=== PATIENT | female | born 1940 | race Caucasian/White ===

== ENCOUNTER 2016-09-09 11:07 | Outpatient (CLI) ==
[2016-01-08 16:11] VITALS: BMI 19.8
--- NOTE | 2016-09-09 12:25 | DI ---
EXAM: Left wrist three-view HISTORY: Pain and swelling left wrist COMPARISON: 01/23/2012 FINDINGS: No fracture or dislocation. Mild narrowing of the first CMC joint. There is chondrocalcin osis of the triangular fibrocartilage. IMPERSSION: 1. No fracture or dislocation. 2. Mild osteoarthritis first CMC joint. 3. Chondrocalcinosis
== END 2016-09-09 11:08 | disposition home or self-care (01) ==
LOC: RAD 11:07
PROVIDERS: ATTEND Internal Medicine
DX: M25.532 Pain in left wrist (principal); M25.432 Effusion, left wrist

== ENCOUNTER 2017-05-06 10:56 | Inpatient (IN) | payer OTHER ==
[2017-05-06 11:22] VITALS: BMI 18.1
[2017-05-06] MEDS ORDERED: NITROSTAT SL PRN (11:43)
[2017-05-06] MEDS ORDERED: TYLENOL PO PRN (11:43)
[2017-05-06] MEDS ORDERED: MORPHINE 4 MG/ML VIAL IVP PRN (11:43)
[2017-05-06] MEDS ORDERED: ATROPINE SULFATE PFS IVP PRN (11:43)
[2017-05-06] MEDS ORDERED: VISTARIL INJ IM PRN (11:43)
[2017-05-06] MEDS ORDERED: SOLU-MEDROL 125 MG IVP SCH (12:00)
[2017-05-06] MEDS: XOPENEX 1.25 MG NEB SCH ×3 (12:48→23:07)
--- NOTE | 2017-05-06 13:58 | DI ---
EXAM: Chest one view HISTORY: Cough, shortness of air COMPARISON: 02/11/2017 TECHNIQUE: Single view of the chest was performed FINDINGS: Similar appearing right apical opacity. Granulomatous calcification. No pleural effusion or pneumothorax. Lungs are hyperinflated. Lower airway thickening. No definite consolidation. He art normal in size. Mediastinal contour normal, noting atherosclerosis. IMPRESSION: 1. Lower airway thickening, suggesting infectious/inflammatory bronchitis. No definite consolidatio n. 2. Chronic obstructive pulmonary disease. 3. Similar appearing right apical opacity, previously described on CT02/11/2017. CT follow-up recom mended.
[2017-05-06] MEDS: COMBIVENT RESPIMAT INHAL SPRAY IH SCH ×3 (14:17→21:36)
[2017-05-06] MEDS: SOLU-CORTEF 250 MG IVP SCH ×2 (14:18→21:36)
[2017-05-06] MEDS: TORADOL IVP SCH ×3 (14:18→21:37)
[2017-05-06] MEDS: ROCEPHIN 1 GM in SODIUM CHLORIDE 50 ML IV SCH (14:18)
[2017-05-06] MEDS: DEXTROSE 5%-1/2NS IV SOLUTION 1,000 ML IV SCH (14:19)
[2017-05-06] MEDS: ZITHROMAX PO SCH (14:20)
[2017-05-06] MEDS: COUMADIN PO SCH (17:08)
[2017-05-06] MEDS: ADVAIR 250-50 DISKUS IH SCH (21:35)
[2017-05-06] MEDS: SINGULAIR PO SCH (21:37)
[2017-05-07] MEDS: DEXTROSE 5%-1/2NS IV SOLUTION 1,000 ML IV SCH (03:30)
[2017-05-07] MEDS: XOPENEX 1.25 MG NEB SCH ×4 (04:23→22:52)
[2017-05-07] MEDS: SOLU-CORTEF 250 MG IVP SCH ×3 (05:53→20:17)
[2017-05-07] MEDS: PROTONIX PO SCH (05:53)
[2017-05-07] MEDS: TORADOL IVP SCH ×3 (05:53→20:17)
[2017-05-07] MEDS ORDERED: TUSSIONEX PO PRN (08:26)
[2017-05-07] MEDS: ZITHROMAX PO SCH (09:04)
[2017-05-07] MEDS: COMBIVENT RESPIMAT INHAL SPRAY IH SCH ×4 (09:05→20:17)
[2017-05-07] MEDS: ADVAIR 250-50 DISKUS IH SCH ×2 (09:05→20:17)
[2017-05-07] MEDS: ASPIRIN EC PO SCH (09:05)
[2017-05-07] MEDS: ROCEPHIN 1 GM in SODIUM CHLORIDE 50 ML IV SCH (09:05)
--- NOTE | 2017-05-07 09:54 | PCM.PROG ---
Attending Provider: ATTENDING PROVIDER: Dr. RAISA RASCON DATE OF SERVICE: 05/07/17 SUBJECTIVE: This 76 year old WHITE/ F was hospitalized 05/06/17. The patient is hospitalized with pleurisy, acute pneumonitis and shortness of breath. The patient has generalized aches maybe consistent with flu symptoms. Shortness of breath on minimal exertion. One of the daughters is present in the room. REVIEW OF SYSTEMS: CONSTITUTIONAL: No night sweats. No fatigue, malaise, lethargy. No fever or chills. HEENT: Eyes: No visual changes. No eye pain. No eye discharge. ENT: No runny nose. No epistaxis. No sinus pain. No odynophagia. No congestion. RESPIRATORY: No cough, no congestion. No hemoptysis. Shortness of breath on minimal exertion. CARDIOVASCULAR: No angina symptoms. No CHF symptoms. No pleuritic pain. No atypical chest pain for CAD. No palpitations. No orthopnea.. GASTROINTESTINAL: Appetite is improving. No abdominal pain. No nausea or vomiting. No diarrhea or constipation. No hematemesis. No hematochezia. GENITOURINARY: No urgency. No frequency. No dysuria. No hematuria. No obstructive symptoms. No discharge. No pain. No significant abnormal bleeding. MUSCULOSKELETAL: Shoulder pain. NEUROLOGICAL: Awake, alert, oriented to time, place and person. No headache. No neck pain. No syncope. No seizures. No dizziness. PSYCHIATRIC: Not anxious. No depression. No suicidal thoughts. No homicidal thoughts. SKIN: No rash. No lesions. No wounds. ENDOCRINE: No unexplained weight loss. No weight gain. HEMATOLOGIC/LYMPHATIC: No anemia. No purpura. No petechiae. No prolonged or excessive bleeding. No palpable lymph nodes. PHYSICAL EXAMINATION: GENERAL: The patient is awake, alert and oriented, sitting in bed in no distress. VITAL SIGNS: Temperature 97.5 F, Pulse 86, Respiratory Rate 17, BP 120/64, Pulse Ox 99% HEENT: Head normocephalic, atraumatic. Eyes: Extraocular muscles are intact. Pupils are equal, round and reactive to light and accommodation. Ears: No lesions. Nose appeared normal. Throat: No exudate or erythema. NECK: Supple. No JVD, no carotid bruit. No lymphadenopathy or thyromegaly. LUNGS: Good air entry. No wheeze. Clear to auscultation. Percussion note normal. Chest symmetrical. HEART: S1, S2, no S3. No murmurs. No cyanosis or clubbing. No ascites. Pulses: Dorsalis pedis and posterior tibial pulses +1 to +2 both sides. ABDOMEN: Soft. Non-tender. Bowel sounds active. No CVA tenderness. No mass felt. EXTREMITIES: No edema. Full range of motion of all extremities, equal. NEUROLOGIC: No focal deficit. Cranial nerves II through XII are grossly intact. No headache, no double vision or headache. SKIN: Not dry. Intact. Turgor-normal. LYMPHATIC: No palpable lymph nodes/no lymphedema. MUSCULOSKELETAL: Normal joints with no swelling. Muscle tone is normal. LAB REVIEW: 05/07/17 04:30 05/07/17 04:30 05/07/17 04:30: Sodium 132 L, Potassium 3.7, Chloride 102, Carbon Dioxide 22 L, Anion Gap 11.7, BUN 14, Creatinine 0.81, Estimated GFR (MDRD) 69.00, BUN/ Creatinine Ratio 17.28, Glucose 195 H D, Calcium 9.7, Total Bilirubin 0.3, AST 16, ALT 13, Alkaline Phosphatase 124, Total Protein 6.6, Albumin 2.7 L, Globulin 3.9, Albumin/Globulin Ratio 0.69 05/07/17 04:30: PT 11.7 H, INR 1.15 05/07/17 04:30: WBC 7.62 D, RBC 3.64 L, Hgb 10.7 L, Hct 31.8 L, MCV 87.4, MCH 29.4, MCHC 33.6, RDW Coeff of Elie 13.7, Plt Count 194, Immature Gran % (Auto) 0.5, Neut % (Auto) 90.5, Lymph % (Auto) 5.1 L, [place] % (Auto) 3.8, Eos % (Auto) 0.0, Baso % (Auto) 0.1, Immature Gran # (Auto) 0.0, Neut # 6.9, Lymph # 0.4 L, [place] # 0.3 L, Eos # 0.0, Baso # 0.0 05/06/17 19:40: Total Creatine Kinase 69, Troponin I 0.0280 05/06/17 12:24: Influenza A (Rapid) Negative by naat, Influenza B (Rapid) Negative by naat 05/06/17 12:24: Urine Color Yellow, Urine Clarity Clear, Urine pH 6.0, Ur Specific [place] <=1.005, Urine Protein Negative, Urine Glucose (UA) Negative, Urine Ketones 1+, Urine Blood 1+, Urine Nitrite Negative, Urine Bilirubin Negative, Urine Urobilinogen 0.2, Ur Leukocyte Esterase 1+, Urine Microscopic WBC 5-10, Ur Squamous Epith Cells 2-5, Urine Bacteria 1+ 05/06/17 12:10: Sodium 135 L, Potassium 3.8, Chloride 100, Carbon Dioxide 24, Anion Gap 14.8, BUN 8, Creatinine 0.85, Estimated GFR (MDRD) 65.00, BUN/ Creatinine Ratio 9.41, Glucose 97, Calcium 10.4 H, Total Bilirubin 0.8, AST 20, ALT 14, Alkaline Phosphatase 130, Total Creatine Kinase 85, Troponin I 0.0200, Total Protein 7.4, Albumin 3.2 L, Globulin 4.2, Albumin/Globulin Ratio 0.76 05/06/17 12:09: PT 11.9 H, INR 1.18 05/06/17 12:09: WBC 12.78 H, RBC 3.89 L, Hgb 11.5 L, Hct 34.6 L, MCV 88.9, MCH 29.6, MCHC 33.2, RDW Coeff of Elie 14.2, Plt Count 218, Immature Gran % (Auto) 0.4, Neut % (Auto) 82.3, Lymph % (Auto) 8.3 L, [place] % (Auto) 8.5, Eos % (Auto) 0.1, Baso % (Auto) 0.4, Immature Gran # (Auto) 0.1, Neut # 10.5 H, Lymph # 1.1, [place] # 1.1, Eos # 0.0, Baso # 0.1 05/06/17 11:55: Puncture Site R radial, O2 Saturation 97.0, ABG pH 7.534 H*, ABG pCO2 24.8 L, ABG pO2 78.0 L, ABG HCO3 20.9 L, ABG Total CO2 22, ABG Base Excess -2, [place] Test +, FiO2 % 21.0 ASSESSMENT: 1. ACUTE PNEUMONITIS/BRONCHITIS 2. COPD SEEMS TO BE CLINICALLY IMPROVING. THE PATIENT'S OVERALL CAPACITY TO EXERCISE SEEMS DECREASED; THE PATIENT WILL NEED PULMONARY REHAB. PLAN: 1. Advised pulmonary rehab. 2. Regular diet 3. Toradol 30 mg IV q.8hr with one dose now 4. PT/OT 5. Pulmonary rehab consultation 6. Echocardiogram 7. Tussionex one teaspoon twice a day 9. D/C Iv fluids Plan and coordination of the patient's care discussed in the presence of Outpatient Physical Therapist Assistant and nurse. CONDITION: Stable SCRIBED BY: ZO DANG Shank Rander scribed while in presence of service performed by Dr. RAISA RASCON on 05/07/17 ([id number])
--- NOTE | 2017-05-07 14:24 | ECHO2D ---
Date of Exam: 05/07/17 Ordering Physician: DR. RAISA RASCON Room #: 115 Reason for Echo: RESPIRATORY FAILURE, COPD M-Mode Normal Adult Results LV Dimensions Normal Adult Results AoV Opening excursions >1.6 >1.6 LVEDD-base- 3.5-5.8 4.1 Ao root dimensions 2.0-3.7 3.5 LVESD-base- 3.1-4.6 L. Atrium dimensions 1.9-3.8 3.6 Post. Wall thickness 0.8-1.1 1.0 IV septum (thickness) 0.7-1.2 1.0 Post. Wall excursion 0.72-1.3 NORMAL Septal motion NORMAL Systolic motion R. Ventricular cavity 1.5-2.0 3.0 LVEF 60% 78% Paradoxical septal wall motion NORMAL 2-D : 2-D M Mode Echocardiogram was performed using apical four chamber and left parasternal long and short axis views. Mitral, tricuspid and aortic valves appear to be normal. Contractility of the left ventricle seems to be normal, so is the cavity size. Left atrial cavity size and aortic root appear to be normal. There is no pericardial effusion. There is no thrombus noted in the left ventricular or left aortic cavity. No mitral valve prolapse noted. M-MODE: MV: NORMAL AV: NORMAL TV: NORMAL PV: CHAMBER SIZE: NORMAL WALL MOTION: NORMAL PERICARDIUM: NORMAL INTERPRETATION: 1. ENLARGED RIGHT VENTRICULAR CAVITY 2. NORMAL LEFT VENTRICULAR CONTRACTILITY 3. NORMAL VALVES MTDD
[2017-05-07] MEDS: COUMADIN PO SCH (17:07)
[2017-05-07] MEDS: SINGULAIR PO SCH (20:17)
[2017-05-07] MEDS: ATIVAN PO PRN (22:22)
[2017-05-07] MEDS: ULTRAM PO PRN (22:22)
[2017-05-08] MEDS: XOPENEX 1.25 MG NEB SCH ×4 (05:05→22:55)
[2017-05-08] MEDS: PROTONIX PO SCH (05:50)
[2017-05-08] MEDS: TORADOL IVP SCH ×3 (05:50→20:17)
[2017-05-08] MEDS: SOLU-CORTEF 250 MG IVP SCH ×3 (05:51→20:17)
[2017-05-08] MEDS: ZITHROMAX PO SCH (08:40)
[2017-05-08] MEDS: ADVAIR 250-50 DISKUS IH SCH ×2 (08:40→20:18)
[2017-05-08] MEDS: COMBIVENT RESPIMAT INHAL SPRAY IH SCH ×4 (08:40→20:18)
[2017-05-08] MEDS: ASPIRIN EC PO SCH (08:40)
[2017-05-08] MEDS: ROCEPHIN 1 GM in SODIUM CHLORIDE 50 ML IV SCH (08:41)
--- NOTE | 2017-05-08 09:24 | PCM.PROG ---
Attending Provider: ATTENDING PROVIDER: Dr. RAISA RASCON This patient is seen with Zuly Henry, Nurse Practitioner. DATE OF SERVICE: 05/08/17 SUBJECTIVE: This 76 year old WHITE/ F was hospitalized 05/06/17. Lying in bed, alert. The patient's breathing his somewhat improved, pain is improved. REVIEW OF SYSTEMS: CONSTITUTIONAL: Weakness. No night sweats. No fever or chills. HEENT: Eyes: No visual changes. No eye pain. No eye discharge. ENT: No runny nose. No epistaxis. No sinus pain. No odynophagia. No congestion. RESPIRATORY: No cough, no congestion. No hemoptysis. CARDIOVASCULAR: No angina symptoms. No CHF symptoms. No atypical chest pain for CAD. No palpitations. No orthopnea.. Positive for shortness of breath. GASTROINTESTINAL: No abdominal pain. No nausea or vomiting. No diarrhea or constipation. No hematemesis. No hematochezia. GENITOURINARY: No urgency. No frequency. No dysuria. No hematuria. No obstructive symptoms. No discharge. No pain. No significant abnormal bleeding. MUSCULOSKELETAL: No musculoskeletal pain; no joint swelling. NEUROLOGICAL: Awake, alert, oriented to time, place and person. No headache. No neck pain. No syncope. No seizures. No dizziness. PSYCHIATRIC: Not anxious. No depression. No suicidal thoughts. No homicidal thoughts. SKIN: No rash. No lesions. No wounds. ENDOCRINE: No unexplained weight loss. No weight gain. HEMATOLOGIC/LYMPHATIC: No anemia. No purpura. No petechiae. No prolonged or excessive bleeding. No palpable lymph nodes. PHYSICAL EXAMINATION: GENERAL: The patient is awake, alert and oriented, lying in bed in no distress. VITAL SIGNS: Temperature 97.2 F, Pulse 100, Respiratory Rate 23, BP 119/63, Pulse Ox 96% HEENT: Head normocephalic, atraumatic. Eyes: Extraocular muscles are intact. Pupils are equal, round and reactive to light and accommodation. Ears: No lesions. Nose appeared normal. Throat: No exudate or erythema. NECK: Supple. No JVD, no carotid bruit. No lymphadenopathy or thyromegaly. LUNGS: Diminished breath sounds bilaterally. Clear to auscultation. Percussion note normal. Chest symmetrical. HEART: S1, S2, no S3. No murmurs. No cyanosis or clubbing. No ascites. Pulses: Dorsalis pedis and posterior tibial pulses +1 to +2 both sides. ABDOMEN: Soft. Non-tender. Bowel sounds active. No CVA tenderness. No mass felt. EXTREMITIES: No edema. Full range of motion of all extremities, equal. NEUROLOGIC: No focal deficit. Cranial nerves II through XII are grossly intact. No headache, no double vision or headache. SKIN: Not dry. Intact. Turgor-normal. LYMPHATIC: No palpable lymph nodes/no lymphedema. MUSCULOSKELETAL: Normal joints with no swelling. Muscle tone is normal. LAB REVIEW: 05/08/17 05:05 05/07/17 04:30 05/08/17 05:05: PT 13.2 H, INR 1.30 05/08/17 05:05: WBC 10.32 H, RBC 3.54 L, Hgb 10.4 L, Hct 30.7 L, MCV 86.7, MCH 29.4, MCHC 33.9, RDW Coeff of Elie 13.8, Plt Count 229, Immature Gran % (Auto) 0.5, Neut % (Auto) 91.0, Lymph % (Auto) 4.7 L, [place] % (Auto) 3.7, Eos % (Auto) 0.0, Baso % (Auto) 0.1, Immature Gran # (Auto) 0.1, Neut # 9.4 H, Lymph # 0.5 L , [place] # 0.4, Eos # 0.0, Baso # 0.0 ASSESSMENT: 1. ACUTE PNEUMONITIS/BRONCHITIS 2. COPD SEEMS TO BE CLINICALLY IMPROVING. THE PATIENT'S OVERALL CAPACITY TO EXERCISE SEEMS DECREASED; THE PATIENT WILL NEED PULMONARY REHAB. 3. HISTORY OF PE ON COUMADIN PLAN: 1. Extra 5 mg of Coumadin today Plan and coordination of the patient's care discussed in the presence of Sales Ledger Clerk and nurse. CONDITION: Stable SCRIBED BY: ZO DANG Silver Miner scribed while in presence of service performed by Dr. Rascon/Zuly Henry APRN on 05/08/17 ([id number])
--- NOTE | 2017-05-08 14:41 | RS.PTINEVL ---
Subjective - Patient information Date of Evaluation: 05/08/17 Date of Arrival on Unit: 05/07/17 Admitted From:: Home Diagnosis: pleurisy, acute pneumonitis, COPD Usual Living Arrangement: With Spouse Home Environment: House, Stairs (few), Rail Medical History: COPD, Arthritis Medical History Comments:: DDD, osteopenia, gout, GERD, R shld pain LATEX ALLERGY?: No Surgical History: Hysterectomy Medications: see chart - Level of function Prior to this admission, the patient could do the following:: Independent Selfcare, Independent ADL's, Independent Ambulation Current Level of Function: Partially Dependent Current Equipment Used at Home: oxygen, shower chair Pain Assessement - Location ribs Description: Sharp, Acute Intensity: 0 Interventions - Objective Patient Orientation: Person, Place, Time, Situation Current Interventions: IV's, Oxygen, Telemetry Range of Motion - ROM Right Upper Extremity AROM: WFL's Left Upper Extremity AROM: WFL's Right Lower Extremity AROM: WFL's Left Lower Extremity AROM: WFL's Muscle Strength - Muscle Strength Right Upper Extremity Strength: Mild Weakness (grossly 4/5) Left Upper Extremity Strength: Mild Weakness (grossly 4/5) Right Lower Extremity Strength: Mild Weakness (hip flex 4-/5, knee flex/ext 4/5 , ankle Df/PF 4/5) Left Lower Extremity Strength: Mild Weakness (hip flex 4-/5, knee flex/ext 4/5, ankle Df/PF 4/5) Sensation - Sensation Right Upper Extremity Sensation: Intact/Normal Left Upper Extremity Sensation: Intact/Normal Right Lower Extremity Sensation: Intact/Normal Left Lower Extremity Sensation: Intact/Normal Palpation Palpation Findings: Muscle Guarding Comments:: muscle guarding and tightness noted in upper traps due to use of accessory muscles for breathing. Balance - Sitting Balance and Reactions Static Sitting Balance: Normal Dynamic Sitting Balance: Normal - Standing Balance and Reactions Static Standing Balance: Good Dynamic Standing Balance: Fair Standing Equilibrium Reactions: Delayed Left, Delayed Right Standing Protective Reactions: Delayed Left, Delayed Right - Comments Balance Assessment Comments: Tinetti score: 17/28 Functional Mobility - Bed Mobility Rolling R/L: Supervision Scooting: Supervision Supine to Sit: Supervision Sit to Supine: CGA - Transfers Sit to Stand: CGA Stand to Sit: CGA - Safety Awareness Safety Awareness: Fair Ambulation - Ambulation Assistive Device Used: Rolling Walker Orthotic/Prosthetic Device: No Distance: 130ft Assistance needed with Ambulation: CGA Gait Deviations: Narrow Based gait, Shuffling gait Ambulation Comments: pt amb with O2 requires 2-3 standing rest periods during amb. pt amb with flexed posture, and decreased step length. Factors Affecting Ambulation: Decreased Balance, Breathing/O2 Saturation, Weakness, Decreased Coordination, Decreased Safety, Limited Endurance, Limited Sensation Treatment time - Time with patient Total treatment time: 32 Patient Education - Education Patient Education: Activity Modification, Education of Plan of Care Teaching Recipient: Patient Teaching Methods: Discussion, Demonstration Comments: Discussion with patient regarding use of rwx for energy conservation, as well as POC Assessment - Assessment Problem List:: Decreased level of function, Requires training/education, Decreased safety/Risk of falls, Weakness Rehab Potential: Good Further Therapy Indicated?: Yes Short Term Goals GOAL #1: pt transfer sup to/from sit independently, sit to/from stand SBA Goal to be met by: 05/10/17 GOAL #2: pt amb 150ft with rwx and O2 with CGA with no LOB. Goal to be met by: 05/10/17 Correction Goals GOAL #1: pt transfer sit to/from stand independently. Goal to be met by: 05/13/17 GOAL #2: pt amb with/without RWX functional household distances with supervision Goal to be met by: 05/13/17 GOAL #3: pt with improved BLE strength 4 to 4+/5 and independent with HEP Goal to be met by: 05/13/17 Plan Plan of Care: Therapeutic EX, Therapeutic Activity, Self-Care/Home Management Other:: gait training Frequency of Treatment: 1-2 X day, as tolerated Duration of Treatment: 5 days Anticipated Discharge Destination: Home Has the Physician been added for Co-signature?: Yes
--- NOTE | 2017-05-08 15:16 | RS.OTINEVL ---
Subjective - Patient information Date of Evaluation: 05/08/17 Date of Arrival on Unit: 05/07/17 Admitted From:: Home Usual Living Arrangement: With Spouse Living Arrangement Comments: Pt lives at home with her . Home Environment: House, Stairs (few), Rail Medical History: COPD, Arthritis Medical History Comments:: DDD, osteopenia, gout, GERD, R shld pain LATEX ALLERGY?: No Surgical History: Hysterectomy Medications: see chart Subjective Information/ Patient Comments:: "I can do that. I put the oxygen tubing under the door so it will reach." "I was told I need to go to respiratory therapy." - Level of function Prior to this admission, the patient could do the following:: Independent Selfcare, Independent ADL's, Independent Ambulation Abilities prior to this admission: Pt was independent with dressing and bathing and ambulation. Now patient requires assistance with dressing and undressing, not safe with ambulation and transfers and does not use a RW. Current Equipment Used at Home: oxygen, shower chair Pain Assessment - Pain Pain Score: 0 Interventions - Objective Patient Orientation: Person, Place, Time, Situation Current Interventions: IV's, Oxygen, Telemetry Observation: Pt is impulsive, anxious, and weak. Pt has limited RUE shoulder AROM. Additional Treatment Performed - Time with patient Total treatment time: 25 (Evaluation-Medium) Activities Patient Interests:: Watching Television, Visiting/Socializing Patient Education Patient Education: Education of diagnosis, Home Exercise Program, Education of Plan of Care Teaching Recipient: Patient Teaching Methods: Discussion Assessment Problem List:: Decreased level of function, Requires training/education, Decreased safety/Risk of falls, Weakness Rehab Potential: Good Further Therapy Indicated?: Yes Short Term Goals - Goals GOAL 1: Pt to tolerate sink level ADLS CGA. Goal to be met by: 05/15/17 GOAL 2: Pt to increase BUE strength to 4/5. Goal to be met by: 05/15/17 GOAL 3: Pt to tolerate isometric BUE shoulder exercises. Goal to be met by: 05/15/17 Steel Division Supervisor Goals GOAL 1: Pt to tolerate sink level ADLS SUP. Goal to be met by: 05/21/17 GOAL 2: Pt to increase BUE strength to 4+/5. Goal to be met by: 05/21/17 GOAL 3: Pt to increase BUE shoulder flexion to WFL. Goal to be met by: 05/21/17 Plan Plan of Care: Therapeutic EX, Neuromuscular Re-Educ, Therapeutic Activity, Self- Care/Home Management Modalities: Ultrasound, Electrical Stimulation Frequency of Treatment: 1-2 X day, as tolerated Duration of Treatment: 2 Weeks Anticipated Discharge Destination: Home Has the Physician been added for Co-signature?: Yes
[2017-05-08] MEDS: COUMADIN PO SCH (16:10)
[2017-05-08] MEDS ORDERED: COUMADIN PO SCH (17:00)
[2017-05-08] MEDS: SINGULAIR PO SCH (20:17)
[2017-05-08] MEDS: ATIVAN PO PRN (22:15)
[2017-05-08] MEDS: ULTRAM PO PRN (22:15)
[2017-05-09] MEDS: XOPENEX 1.25 MG NEB SCH ×4 (04:30→23:58)
[2017-05-09] MEDS: TORADOL IVP SCH ×3 (05:48→20:33)
[2017-05-09] MEDS: SOLU-CORTEF 250 MG IVP SCH ×2 (05:48→20:32)
[2017-05-09] MEDS: PROTONIX PO SCH (05:49)
[2017-05-09] MEDS: ASPIRIN EC PO SCH (09:16)
[2017-05-09] MEDS: COMBIVENT RESPIMAT INHAL SPRAY IH SCH ×4 (09:16→20:32)
[2017-05-09] MEDS: ADVAIR 250-50 DISKUS IH SCH ×2 (09:16→20:32)
[2017-05-09] MEDS: ROCEPHIN 1 GM in SODIUM CHLORIDE 50 ML IV SCH (09:17)
[2017-05-09] MEDS: ZOSYN 3.375 GM 3.375 GM in SODIUM CHLORIDE 50 ML IV SCH ×4 (10:27→23:50)
[2017-05-09] MEDS: COUMADIN PO SCH (18:16)
[2017-05-09] MEDS: SINGULAIR PO SCH (20:32)
[2017-05-09] MEDS: ATIVAN PO PRN (23:55)
[2017-05-10] MEDS: XOPENEX 1.25 MG NEB SCH ×3 (05:18→16:48)
[2017-05-10] MEDS: ZOSYN 3.375 GM 3.375 GM in SODIUM CHLORIDE 50 ML IV SCH ×4 (05:59→23:04)
[2017-05-10] MEDS: TORADOL IVP SCH ×3 (05:59→21:39)
[2017-05-10] MEDS: PROTONIX PO SCH (05:59)
[2017-05-10] MEDS: ADVAIR 250-50 DISKUS IH SCH ×2 (09:11→21:38)
[2017-05-10] MEDS: COMBIVENT RESPIMAT INHAL SPRAY IH SCH ×4 (09:11→21:39)
[2017-05-10] MEDS: ASPIRIN EC PO SCH (09:12)
[2017-05-10] MEDS: SOLU-CORTEF 250 MG IVP SCH (09:13)
[2017-05-10] MEDS ORDERED: PREDNISONE PO STA (13:33)
[2017-05-10] MEDS ORDERED: MIRALAX PO STA (13:33)
[2017-05-10] MEDS: COUMADIN PO SCH (17:57)
[2017-05-10] MEDS: SINGULAIR PO SCH (21:39)
[2017-05-10] MEDS: ULTRAM PO PRN (21:40)
[2017-05-10] MEDS: ATIVAN PO PRN (21:40)
[2017-05-11] MEDS: XOPENEX 1.25 MG NEB SCH ×5 (00:12→23:08)
[2017-05-11] MEDS: PROTONIX PO SCH (05:45)
[2017-05-11] MEDS: TORADOL IVP SCH ×3 (05:46→21:27)
[2017-05-11] MEDS: ZOSYN 3.375 GM 3.375 GM in SODIUM CHLORIDE 50 ML IV SCH ×4 (05:46→23:06)
[2017-05-11] MEDS: MIRALAX PO SCH (09:32)
[2017-05-11] MEDS: ASPIRIN EC PO SCH (09:32)
[2017-05-11] MEDS: ADVAIR 250-50 DISKUS IH SCH ×2 (09:32→21:27)
[2017-05-11] MEDS: COMBIVENT RESPIMAT INHAL SPRAY IH SCH ×4 (09:32→21:26)
[2017-05-11] MEDS: PREDNISONE PO SCH (09:33)
[2017-05-11] MEDS: COUMADIN PO SCH (16:27)
[2017-05-11] MEDS: SINGULAIR PO SCH (21:27)
[2017-05-11] MEDS: ATIVAN PO PRN (21:27)
[2017-05-11] MEDS: ULTRAM PO PRN (21:27)
[2017-05-12] MEDS: XOPENEX 1.25 MG NEB SCH (05:01)
[2017-05-12] MEDS: PROTONIX PO SCH (05:54)
[2017-05-12] MEDS: TORADOL IVP SCH (05:54)
[2017-05-12] MEDS: ZOSYN 3.375 GM 3.375 GM in SODIUM CHLORIDE 50 ML IV SCH (05:54)
[2017-05-12] MEDS: COMBIVENT RESPIMAT INHAL SPRAY IH SCH (08:34)
[2017-05-12] MEDS: PREDNISONE PO SCH (08:34)
[2017-05-12] MEDS: ASPIRIN EC PO SCH (08:34)
[2017-05-12] MEDS: ADVAIR 250-50 DISKUS IH SCH (08:35)
[2017-05-12] MEDS: MIRALAX PO SCH (08:35)
--- NOTE | 2017-05-12 09:27 | ECHO2D ---
Date of Exam: 05/07/17 Ordering Physician: DR. RAISA RASCON Room #: 115 Reason for Echo: RESPIRATORY FAILURE, COPD M-Mode Normal Adult Results LV Dimensions Normal Adult Results AoV Opening excursions >1.6 >1.6 LVEDD-base- 3.5-5.8 4.1 Ao root dimensions 2.0-3.7 3.5 LVESD-base- 3.1-4.6 L. Atrium dimensions 1.9-3.8 3.6 Post. Wall thickness 0.8-1.1 1.0 IV septum (thickness) 0.7-1.2 1.0 Post. Wall excursion 0.72-1.3 NORMAL Septal motion NORMAL Systolic motion R. Ventricular cavity 1.5-2.0 3.0 LVEF 60% 78% Paradoxical septal wall motion NORMAL 2-D : 2-D M Mode Echocardiogram was performed using apical four chamber and left parasternal long and short axis views. Mitral, tricuspid and aortic valves appear to be normal. Contractility of the left ventricle seems to be normal, so is the cavity size. Left atrial cavity size and aortic root appear to be normal. There is no pericardial effusion. There is no thrombus noted in the left ventricular or left aortic cavity. No mitral valve prolapse noted. M-MODE: MV: NORMAL AV: NORMAL TV: NORMAL PV: CHAMBER SIZE: NORMAL WALL MOTION: NORMAL PERICARDIUM: NORMAL INTERPRETATION: 1. ENLARGED RIGHT VENTRICLE CAVITY 2. NORMAL LEFT VENTRICULAR CONTRACTILITY 3. NORMAL VALVES MTDD
--- NOTE | 2017-05-12 10:41 | CM.DICTOOL ---
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) HISTORY OF DVT/PE (COUMADIN) GERD ANEMIA HYPERGLYCEMIA (LIKELY STEROID ETIOLOGY) OSTEOPENIA DEGENERATIVE DISEASE OF THE C-SPINE OSTEOARTHRITIS, RIGHT SHOULDER GOUT FORMER HEAVY SMOKER (NONE SINCE 2014) HYSTERECTOMY APPENDECTOMY LAST VITALS Temp Pulse Resp BP Pulse Ox 98.0 F 75 22 137/71 100 05/12/17 05:20 05/12/17 05:20 05/12/17 05:20 05/12/17 05:20 05/12/17 05:20 ACTIVE MEDICATIONS Ipratropium/Albuterol Sulfate (Combivent Respimat Inhal [place]) 4 gm IH QID Lorazepam (Ativan) 0.5 - 1 mg PO BID PRN PRN Reason: Anxiety Last Admin: 05/11/17 21:27 Dose: 1 mg Montelukast Sodium (Singulair) 10 mg PO BEDTIME [facility] Last Admin: 05/11/17 21:27 Dose: 10 mg Pantoprazole Sodium (Protonix) 40 mg PO QDAC [facility] Last Admin: 05/12/17 05:54 Dose: 40 mg Fluticasone/Salmeterol (Advair 250-50 Diskus) 1 puff IH BID [facility] Last Admin: 05/12/17 08:35 Dose: 1 puff Tramadol HCl (Ultram) 50 mg PO BID PRN PRN Reason: pain Last Admin: 05/10/17 21:40 Dose: 50 mg Tramadol HCl (Ultram) 50 mg PO BEDTIME PRN PRN Reason: pain Last Admin: 05/11/17 21:27 Dose: 50 mg Warfarin Sodium (Coumadin) 5 mg PO QPM [facility] Last Admin: 05/11/17 16:27 Dose: 5 mg ALLERGIES ciprofloxacin [From Cipro] Adverse Reaction (Verified 03/04/13 13:05) ciprofloxacin HCl [From Cipro] Adverse Reaction (Verified 03/04/13 13:05) hydrocodone Adverse Reaction (Verified 06/30/15 12:45) Abdominal Pain NEW PRESCRIPTIONS: TUSSIONEX 5 ML, TAKE 5 ML BY MOUTH TWICE DAILY IF NEEDED (PRN) FOR COUGHING AUGMENTIN 8.75 MG, TAKE ONE TABLET BY MOUTH TWICE DAILY WITH FOOD X 7 DAYS PREDNISONE 10 MG, TAKE 2 TABS TWICE DAILY WITH FOOD X 2 DAYS, THEN TAKE 1 TABLET BY MOUTH TWICE DAILY WITH FOOD X 5 DAYS SMOKING: FORMER SMOKER NONE NOW DISEASE SPECIFIC EDUCATION: BRONCHITIS NEW PRESCRIPTIONS HOME MEDICATIONS 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 USE FOLLOW UP LAB REVIEW: 05/12/17 04:00 05/12/17 04:00 05/12/17 04:00: Sodium 139, Potassium 3.5, Chloride 103, Carbon Dioxide 28, Anion Gap 11.5, BUN 21 H, Creatinine 0.98, Estimated GFR (MDRD) 55.00, BUN/ Creatinine Ratio 21.42, Glucose 73 L, Calcium 9.2, Total Bilirubin < 0.3, AST 17 , ALT 17, Alkaline Phosphatase 86, Total Protein 5.2 L, Albumin 2.5 L, Globulin 2.7, Albumin/Globulin Ratio 0.93 05/12/17 04:00: WBC 8.63, RBC 3.37 L, Hgb 10.0 L, Hct 29.6 L, MCV 87.8, MCH 29.7 , MCHC 33.8, RDW Coeff of Elie 14.2, Plt Count 262, Immature Gran % (Auto) 0.5, Neut % (Auto) 67.8, Lymph % (Auto) 22.8, [place] % (Auto) 7.9, Eos % (Auto) 0.9, Baso % (Auto) 0.1, Immature Gran # (Auto) 0.0, Neut # 5.9, Lymph # 2.0, [place] # 0.7, Eos # 0.1, Baso # 0.0 PLAN: DISCHARGE HOME TODAY RETURN TO SEE DR. RASCON IN 5-7 DAYS. PLEASE PHONE HIS OFFICE TO SCHEDULE YOUR FOLLOW UP APPOINTMENT ([phone]) RESUME YOUR HOME MEDICATIONS PER LIST PROVIDED BY THE NURSING STAFF NEW PRESCRIPTIONS TUSSIONEX 5 ML, TAKE 5 ML BY MOUTH TWICE DAILY IF NEEDED (PRN) FOR COUGHING AUGMENTIN 8.75 MG, TAKE ONE TABLET BY MOUTH TWICE DAILY WITH FOOD X 7 DAYS PREDNISONE 10 MG, TAKE 2 TABS TWICE DAILY WITH FOOD X 2 DAYS, THEN TAKE 1 TABLET BY MOUTH TWICE DAILY WITH FOOD X 5 DAYS ACTIVITY GET PLENTY OF REST AT HOME. GRADUALLY INCREASE YOUR ACTIVITY ACCORDING TO YOUR TOLERATION DIET HEALTHY HEART SUMMARY THE PATIENT IS ALERT AND ORIENTED X3. SHE CURRENTLY RESIDES AT HOME WITH HER SPOUSE. SHE IS INDEPENDENT WITH ADL'S. SHE HAS OXYGEN AND A NEBULIZER FOR HOME USE. SHE USES THE OXYGEN CONTINUOUSLY AT 2L/NC. SHE DOES NOT REQUIRE HOME HEALTH OR HOMEMAKING SERVICES. SHE DESIRES TO RETURN HOME AT DISCHARGE. HER SKIN TURGOR IS INTACT AND WITHOUT DECUBITUS ULCERS. HER NUTRITIONAL AND HYDRATION STATUS ARE GOOD. SHE IS AFEBRILE AND FEELING MUCH BETTER THAN ON ADMISSION. SHE HAS SHOWN GOOD CLINICAL PROGRESS TO THE TREATMENT PROVIDED DURING THIS STAY. SHE IS AWARE AND AGREEABLE FOR DISCHARGE HOME TODAY. CURRENT CODE STATUS FULL CODE JAZZMINE CHEW APRN RAISA RASCON M.D.
[2017-05-12 10:53] VITALS: BP 116/61; TEMP 97.8
--- NOTE | 2017-05-12 11:02 | PCM.PROG ---
Attending Provider: ATTENDING PROVIDER: Dr. RAISA RASCON This patient is seen with Zuly Henry, Nurse Practitioner. DATE OF SERVICE: 05/12/17 SUBJECTIVE: This 76 year old WHITE/ F was hospitalized 05/06/17. The patient is lying in bed, alert. Breathing improved, fatigue improved. She would like to go home today. REVIEW OF SYSTEMS: CONSTITUTIONAL: Weakness. No night sweats. No malaise, lethargy. No fever or chills. HEENT: Eyes: No visual changes. No eye pain. No eye discharge. ENT: No runny nose. No epistaxis. No sinus pain. No odynophagia. No congestion. RESPIRATORY: Cough. No congestion. No hemoptysis. No shortness of breath. CARDIOVASCULAR: No angina symptoms. No CHF symptoms. No atypical chest pain for CAD. No palpitations. No orthopnea.. GASTROINTESTINAL: No abdominal pain. No nausea or vomiting. No diarrhea or constipation. No hematemesis. No hematochezia. GENITOURINARY: No urgency. No frequency. No dysuria. No hematuria. No obstructive symptoms. No discharge. No pain. No significant abnormal bleeding. MUSCULOSKELETAL: No musculoskeletal pain; no joint swelling. NEUROLOGICAL: Awake, alert, oriented to time, place and person. No headache. No neck pain. No syncope. No seizures. No dizziness. PSYCHIATRIC: Not anxious. No depression. No suicidal thoughts. No homicidal thoughts. SKIN: No rash. No lesions. No wounds. ENDOCRINE: No unexplained weight loss. No weight gain. HEMATOLOGIC/LYMPHATIC: No anemia. No purpura. No petechiae. No prolonged or excessive bleeding. No palpable lymph nodes. PHYSICAL EXAMINATION: GENERAL: The patient is awake, alert and oriented, lying in bed in no distress. VITAL SIGNS: Temperature 98.0 F, Pulse 75, Respiratory Rate 22, BP 137/71, Pulse Ox 100% HEENT: Head normocephalic, atraumatic. Eyes: Extraocular muscles are intact. Pupils are equal, round and reactive to light and accommodation. Ears: No lesions. Nose appeared normal. Throat: No exudate or erythema. NECK: Supple. No JVD, no carotid bruit. No lymphadenopathy or thyromegaly. LUNGS: Diminished breath sounds bilaterally. Clear to auscultation. Percussion note normal. Chest symmetrical. HEART: S1, S2, no S3. No murmurs. No cyanosis or clubbing. No ascites. Pulses: Dorsalis pedis and posterior tibial pulses +1 to +2 both sides. ABDOMEN: Soft. Non-tender. Bowel sounds active. No CVA tenderness. No mass felt. EXTREMITIES: No edema. Full range of motion of all extremities, equal. NEUROLOGIC: No focal deficit. Cranial nerves II through XII are grossly intact. No headache, no double vision or headache. SKIN: Not dry. Intact. Turgor-normal. LYMPHATIC: No palpable lymph nodes/no lymphedema. MUSCULOSKELETAL: Normal joints with no swelling. Muscle tone is normal. LAB REVIEW: 05/12/17 04:00 05/12/17 04:00 05/12/17 04:00: Sodium 139, Potassium 3.5, Chloride 103, Carbon Dioxide 28, Anion Gap 11.5, BUN 21 H, Creatinine 0.98, Estimated GFR (MDRD) 55.00, BUN/ Creatinine Ratio 21.42, Glucose 73 L, Calcium 9.2, Total Bilirubin < 0.3, AST 17 , ALT 17, Alkaline Phosphatase 86, Total Protein 5.2 L, Albumin 2.5 L, Globulin 2.7, Albumin/Globulin Ratio 0.93 05/12/17 04:00: WBC 8.63, RBC 3.37 L, Hgb 10.0 L, Hct 29.6 L, MCV 87.8, MCH 29.7 , MCHC 33.8, RDW Coeff of Elie 14.2, Plt Count 262, Immature Gran % (Auto) 0.5, Neut % (Auto) 67.8, Lymph % (Auto) 22.8, [place] % (Auto) 7.9, Eos % (Auto) 0.9, Baso % (Auto) 0.1, Immature Gran # (Auto) 0.0, Neut # 5.9, Lymph # 2.0, [place] # 0.7, Eos # 0.1, Baso # 0.0 ASSESSMENT: 1. ACUTE PNEUMONITIS/BRONCHITIS 2. COPD SEEMS TO BE CLINICALLY IMPROVING. THE PATIENT'S OVERALL CAPACITY TO EXERCISE SEEMS DECREASED; THE PATIENT WILL NEED PULMONARY REHAB. 3. HISTORY OF PE ON COUMADIN PLAN: 1. Augmentin 875 with meals twice a day for 7 days 2. Tussionex 3. Prednisone 20 mg b.i.d. for 2 days then 10 b.i.d. for 5 days 4. Refer to Pulmonary Rehab, has 02 at home Plan and coordination of the patient's care discussed in the presence of Director [employer] and nurse. CONDITION: Stable SCRIBED BY: ZO DANG [employer] Floor Layer scribed while in presence of service performed by Dr. Rascon/Zuly Henry APRN on 05/12/17 ([id number])
--- NOTE | 2017-05-12 11:10 | PCM.PROG ---
Attending Provider: ATTENDING PROVIDER: Dr. RAISA RASCON This patient is seen with Zuly Henry, Nurse Practitioner. DATE OF SERVICE: 05/09/17 SUBJECTIVE: This 76 year old WHITE/ F was hospitalized 05/06/17. The patient is lying in bed. She is alert and oriented. Breathing is better. She is still in significant pain with severe fatigue in the afternoons. REVIEW OF SYSTEMS: CONSTITUTIONAL: Positive for weakness. No night sweats. No malaise, lethargy. No fever or chills. HEENT: Eyes: No visual changes. No eye pain. No eye discharge. ENT: No runny nose. No epistaxis. No sinus pain. No odynophagia. No congestion. RESPIRATORY: No cough, no congestion. No hemoptysis. No shortness of breath. CARDIOVASCULAR: No angina symptoms. No CHF symptoms. No atypical chest pain for CAD. No palpitations. No orthopnea.. GASTROINTESTINAL: No abdominal pain. No nausea or vomiting. No diarrhea or constipation. No hematemesis. No hematochezia. GENITOURINARY: No urgency. No frequency. No dysuria. No hematuria. No obstructive symptoms. No discharge. No pain. No significant abnormal bleeding. MUSCULOSKELETAL: Pain. NEUROLOGICAL: Awake, alert, oriented to time, place and person. No headache. No neck pain. No syncope. No seizures. No dizziness. PSYCHIATRIC: Not anxious. No depression. No suicidal thoughts. No homicidal thoughts. SKIN: No rash. No lesions. No wounds. ENDOCRINE: No unexplained weight loss. No weight gain. HEMATOLOGIC/LYMPHATIC: No anemia. No purpura. No petechiae. No prolonged or excessive bleeding. No palpable lymph nodes. PHYSICAL EXAMINATION: GENERAL: The patient is awake, alert and oriented, lying in bed in no distress. VITAL SIGNS: Temperature 97.5 F, Pulse 81, Respiratory Rate 18, BP 137/70, Pulse Ox 97% HEENT: Head normocephalic, atraumatic. Eyes: Extraocular muscles are intact. Pupils are equal, round and reactive to light and accommodation. Ears: No lesions. Nose appeared normal. Throat: No exudate or erythema. NECK: Supple. No JVD, no carotid bruit. No lymphadenopathy or thyromegaly. LUNGS: Diminished breath sounds bilaterally. Clear to auscultation. Percussion note normal. Chest symmetrical. HEART: S1, S2, no S3. No murmurs. No cyanosis or clubbing. No ascites. Pulses: Dorsalis pedis and posterior tibial pulses +1 to +2 both sides. ABDOMEN: Soft. Non-tender. Bowel sounds active. No CVA tenderness. No mass felt. EXTREMITIES: No edema. Full range of motion of all extremities, equal. NEUROLOGIC: No focal deficit. Cranial nerves II through XII are grossly intact. No headache, no double vision or headache. SKIN: Not dry. Intact. Turgor-normal. LYMPHATIC: No palpable lymph nodes/no lymphedema. MUSCULOSKELETAL: Normal joints with no swelling. Muscle tone is normal. LAB REVIEW: 05/09/17 04:30 05/09/17 04:30 05/09/17 04:30: Sodium 132 L, Potassium 4.3, Chloride 101, Carbon Dioxide 22 L, Anion Gap 13.3, BUN 21 H, Creatinine 0.91, Estimated GFR (MDRD) 60.00, BUN/ Creatinine Ratio 23.07, Glucose 113, Calcium 9.9, Total Bilirubin < 0.3, AST 25 , ALT 20, Alkaline Phosphatase 125, Total Protein 5.9, Albumin 2.6 L, Globulin 3.3, Albumin/Globulin Ratio 0.79 05/09/17 04:30: WBC 9.08, RBC 3.60 L, Hgb 10.6 L, Hct 31.2 L, MCV 86.7, MCH 29.4 , MCHC 34.0, RDW Coeff of Elie 13.9, Plt Count 237, Immature Gran % (Auto) 0.6, Neut % (Auto) 90.0, Lymph % (Auto) 5.6 L, [place] % (Auto) 3.7, Eos % (Auto) 0.0, Baso % (Auto) 0.1, Immature Gran # (Auto) 0.1, Neut # 8.2 H, Lymph # 0.5 L, [place] # 0.3 L, Eos # 0.0, Baso # 0.0 05/08/17 05:05: Sodium 130 L, Potassium 4.0, Chloride 97 L, Carbon Dioxide 20 L , Anion Gap 17.0, BUN 14, Creatinine 0.70, Estimated GFR (MDRD) 82.00, BUN/ Creatinine Ratio 20.00, Glucose 126 H, Calcium 10.0, Total Bilirubin 0.3, AST 21 , ALT 15, Alkaline Phosphatase 136, Total Protein 6.0, Albumin 3.4, Globulin 2.6 , Albumin/Globulin Ratio 1.31 ASSESSMENT: 1. ACUTE PNEUMONITIS/BRONCHITIS 2. COPD SEEMS TO BE CLINICALLY IMPROVING. THE PATIENT'S OVERALL CAPACITY TO EXERCISE SEEMS DECREASED; THE PATIENT WILL NEED PULMONARY REHAB. 3. HISTORY OF PE ON COUMADIN PLAN: 1. Solu-Cortef q.12 2. INR daily Plan and coordination of the patient's care discussed in the presence of Residential Coordinator and nurse. CONDITION: Stable SCRIBED BY: ZO DANG Registered Nurses scribed while in presence of service performed by Dr. Rascon/Zuly Henry APRN on 05/09/17 ([id number])
--- NOTE | 2017-05-13 13:26 | DS ---
DATE OF SERVICE: 05/12/17 FINAL DIAGNOSIS: 1. ACUTE PNEUMONITIS/BRONCHITIS (PSEUDOMONAS AERUGINOSA) 2. PLEURITIC PAIN 3. SEVERE COPD (ON HOME OXYGEN CONTINUOUS) 4. 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 HISTORY OF DVT/PE (COUMADIN) 6. GERD 7. ANEMIA 8. HYPERGLYCEMIA (LIKELY STEROID ETIOLOGY) 9. OSTEOPENIA 10. DEGENERATIVE DISEASE OF THE C-SPINE 11. OSTEOARTHRITIS, RIGHT SHOULDER 12. GOUT 13. FORMER HEAVY SMOKER (NONE SINCE 2014) 14. HYSTERECTOMY 15. APPENDECTOMY LAST V/S: Temperature 98.0, pulse 75, respiratory rate 22, BP 137/71, pulse ox 100 DISCHARGE INSTRUCTIONS: RETURN TO SEE DR. RASCON IN 5-7 DAYS. PLEASE PHONE HIS OFFICE TO SCHEDULE YOUR FOLLOW UP APPOINTMENT ([phone]) MEDICATIONS AT DISCHARGE: Ipratropium/Albuterol Sulfate (Combivent Respimat Inhal [place]) 4 gm IH QID Lorazepam (Ativan) 0.5 - 1 mg PO BID PRN PRN Reason: Anxiety Last Admin: 05/11/17 21:27 Dose: 1 mg Montelukast Sodium (Singulair) 10 mg PO BEDTIME [facility] Last Admin: 05/11/17 21:27 Dose: 10 mg Pantoprazole Sodium (Protonix) 40 mg PO QDAC [facility] Last Admin: 05/12/17 05:54 Dose: 40 mg Fluticasone/Salmeterol (Advair 250-50 Diskus) 1 puff IH BID [facility] Last Admin: 05/12/17 08:35 Dose: 1 puff Tramadol HCl (Ultram) 50 mg PO BID PRN PRN Reason: pain Last Admin: 05/10/17 21:40 Dose: 50 mg Tramadol HCl (Ultram) 50 mg PO BEDTIME PRN PRN Reason: pain Last Admin: 05/11/17 21:27 Dose: 50 mg Warfarin Sodium (Coumadin) 5 mg PO QPM [facility] Last Admin: 05/11/17 16:27 Dose: 5 mg ALLERGIES ciprofloxacin Adverse Reaction (Verified 03/04/13 13:05) ciprofloxacin HCl Adverse Reaction (Verified 03/04/13 13:05) hydrocodone Adverse Reaction (Verified 06/30/15 12:45) Abdominal Pain NEW PRESCRIPTIONS: 1. TUSSIONEX 5 ML, TAKE 5 ML BY MOUTH TWICE DAILY IF NEEDED (PRN) FOR COUGHING 2. AUGMENTIN 8.75 MG, TAKE ONE TABLET BY MOUTH TWICE DAILY WITH FOOD X 7 DAYS 3. PREDNISONE 10 MG, TAKE 2 TABS TWICE DAILY WITH FOOD X 2 DAYS, THEN TAKE 1 TABLET BY MOUTH TWICE DAILY WITH FOOD X 5 DAYS DIET INSTRUCTIONS: HEALTHY HEART ACTIVITY: GET PLENTY OF REST AT HOME. GRADUALLY INCREASE YOUR ACTIVITY ACCORDING TO YOUR TOLERATION SMOKING: FORMER SMOKER NONE NOW DISEASE SPECIFIC EDUCATION: BRONCHITIS NEW PRESCRIPTIONS HOME MEDICATIONS RISKS OF DETENTION STEROID USE FOLLOW UP HOSPITAL COURSE: This is a 76-year-old white female who was a direct admit from our office. She has a long history of severe COPD and is on continuous oxygen at home. She sees Dr. Olivas for pulmonary nodules and COPD. She presented to our office with extreme shortness of breath, fatigue, weakness and pain - pleuritic in type. Her oxygen saturation in the office was 88% on 3L. She was barely able to hold her head up because of fatigue from her extreme exertion with breathing. She was unable to walk around. She has poor posturing contributing to osteoarthritis and osteoporosis due to her COPD. She was subsequently admitted , placed on Solu-Cortef 125 mg IV q.8hr, started on Xopenex neb treatments q.6hr scheduled, started on Rocephin 1 gm IV daily. She was given Tussionex 5 mL p.o. q.12 p.r.n. for cough, Toradol 30 mg IV q.8hr for pleuritic type pain. She is on Coumadin due to history of DVT for which she is continued on with daily INR. A sputum culture was done on admission after the first 48 hours, culture came back positive for Pseudomonas Aeruginosa and the sensitivity showed that this was not sensitive to Rocephin she was then changed to Zosyn IV q.6hr. Over the course of several days, she has had slow improvement. Her appetite has slowly improved. She is still very weak. She is underwent. The IV steroids in the first 48 hours helped the pleuritic type pain. Her wheezing finally stopped over the past 48 hours. She was started on Prednisone 20 mg daily yesterday by Dr. Rascon. Chest x-ray did not reveal any pneumonia, just severe COPD and acute bronchitis type changes. Telemetry showed that she remained in normal sinus rhythm. PT/OT was consulted for energy conservation due to her severe COPD. As she will continue with Xopenex neb treatments at home along with the rest of her inhalers. We will start her on Augmentin 875 mg b.i.d. as that is compatible with Zosyn and continue her on Prednisone 20 mg p.o. daily for the next 7 days. She has also agreed to do pulmonary rehab and we will refer her to there. They have already consulted with her I believe regarding pulmonary rehab. She is slightly improved although there is small room for improvement given her condition and the condition of her lungs. Her vital signs are stable, temperature 98, heart rate 75, respirations 22, BP 137/ 71, pulse ox 100% on 3L. Her INR today is 2.78. Her labs all look good. She does have anemia secondary to chronic kidney disease. Hemoglobin 10.0, hematocrit 29.6, white count 8.63, sodium 139, potassium 3.5, BUN 21, creatinine 0.98. She is encouraged to eat at home. Different techniques have been discussed with her with PT/OT regarding energy conservation. She is to continuously wear her oxygen, keep followup appointment with Dr. Olivas. We will discharge her home and see her next week. PLAN: Full Code TIME SPENT: More than 60 minutes. ANETA
--- NOTE | 2017-05-13 15:41 | RS.OTQKDC ---
OT Discharge Date of Discharge: 05/13/17 Reason for Discharge: Pt discharged to home with her .
== END 2017-05-12 11:33 | disposition home or self-care (01) | DRG 194 ==
LOC: MEDSURG B 10:56
PROVIDERS: ADMIT Internal Medicine; ATTEND Internal Medicine
DX: J18.9 Pneumonia, unspecified organism (principal); J44.0 Chronic obstructive pulmonary disease with (acute) lower respiratory infection; J20.9 Acute bronchitis, unspecified; R07.81 Pleurodynia; R09.3 Abnormal sputum; B96.5 Pseudomonas (aeruginosa) (mallei) (pseudomallei) as the cause of diseases classified elsewhere; N18.9 Chronic kidney disease, unspecified; R06.02 Shortness of breath; D63.1 Anemia in chronic kidney disease; M81.0 Age-related osteoporosis without current pathological fracture; R91.1 Solitary pulmonary nodule; K21.9 Gastro-esophageal reflux disease without esophagitis; D64.9 Anemia, unspecified; R73.9 Hyperglycemia, unspecified; M85.80 Other specified disorders of bone density and structure, unspecified site; M47.892 Other spondylosis, cervical region; M19.011 Primary osteoarthritis, right shoulder; Z86.711 Personal history of pulmonary embolism; Z86.718 Personal history of other venous thrombosis and embolism; M10.9 Gout, unspecified; Z79.01 Long term (current) use of anticoagulants; Z87.891 Personal history of nicotine dependence
CPT/HCPCS: 36415; 80053; 81001; 82550; 82803; 84484; 85025; 85610; 87070; 87086; 87186; 87502; 93005; 93010; 94640

== ENCOUNTER 2017-06-26 09:53 | Outpatient (RCR) ==
[2017-06-26 11:02] VITALS: BP 122/58
== END 2017-07-15 13:30 | disposition home or self-care (01) ==
LOC: PUL.REHAB 09:53 → EDSTATUS 09:55 → PUL.REHAB 07-15 13:30
PROVIDERS: ATTEND Internal Medicine
DX: J44.9 Chronic obstructive pulmonary disease, unspecified (principal)

== ENCOUNTER 2017-06-30 08:06 | Inpatient (IN) | payer OTHER ==
--- NOTE | 2017-06-30 08:23 | ED.PDOC ---
General ED Provider: Dr. SHAWN OLIVA Chief Complaint: Chest Pain Stated Complaint: chest pain/ shoulder pain Time Seen by Physician: 08:00 (pain across chest upper back started 3 days ago) Mode of Arrival: Wheelchair Information Source: Patient, Family Exam Limitations: No limitations Primary Care Provider: RAISA RASCON Nursing and Triage Documentation Reviewed and Agree: Yes Reviewed sepsis parameters & appropriate labs ordered?: Yes System Inflammatory Response Syndrome: Not Applicable Sepsis Protocol: For patient's 13 years and over: Temp is 96.8 and below OR 101 and greater Pulse >90 BPM Resp >20/minute Acutely Altered Mental Status Are patient's symptoms suggestive of a new infection, such as: -Pneumonia -Skin, Soft Tissue -Endocarditis -UTI -Bone, Joint Infection -Implantable Device -Acute Abdominal Infection -Wound Infection -Meningitis -Blood Stream Catheter Infection -Unknown System Inflammatory Response Syndrome: Not Applicable (no fall reported , no HX OF CAD ACCORDING O PT'S FAMILY) Cardiovascular Complaint Exam - Chest Pain Complaint/Exam Onset: Gradual Duration: 3 DAYS Symptoms Are: Still present Timing: Constant Length of Chest Pain Episodes: 3 DAYS ENDSTAGE COPD ON O2 AT HOME AT ALL TIMES Initial Severity: Mild Location: Reports: Discrete, Midsternal, Right lateral Pain Radiates: Reports: Back Character: Reports: Aching, Tightness Aggravating: Reports: None Alleviating: Reports: None Associated Signs and Symptoms: Reports: Cough. Denies: Diaphoresis, Nausea, Vomiting, Fever, Palpitations, Hemoptysis, Back pain, Abdominal pain, Dizziness , Short of air, Calf pain, Calf swelling Related History: Reports: Similar episode Related Surgical History: Reports: None History of Healthcare-Acquired Pneumonia: Reports: No AMI/ACS Risk Factors: Reports: None TAD Risk Factors: Reports: None Pulmonary Embolism Risk Factors: Reports: DVT Prior Care for this Complaint: No Recent Stress Test: Yes Recent Echo/LV Function: Yes JVD Present: No Subcutaneous Emphysema Present: No Diminshed Breath Sounds: No Reproducible Chest Wall Pain: No Bilateral Pulses Present: No Unequal Pulses Noted: No If Risk Factors for AMI/ACS Consider: EKG, Cardiac Enzymes, Oxygen Care and Dx Studies Discussed With: Family, PCP Differential Diagnoses: ACS, Lower Resp. Infection Quality Indicators For Acute ID or Cardiac Chest Pain: EKG in 10min. Review of Systems - Review Of Systems Constitutional: Reports: Malaise, Weakness, Loss of appetite Eyes: Reports: No symptoms Ears, Nose, Mouth, Throat: Reports: No symptoms Respiratory: Reports: Cough, Short of air Cardiac: Reports: Chest pain GI: Reports: No symptoms : Reports: No symptoms Musculoskeletal: Reports: No symptoms Skin: Reports: No symptoms Neurological: Reports: Headache Endocrine: Reports: No symptoms Hematologic/Lymphatic: Reports: No symptoms All Other Systems: Reviewed and Negative Past Medical History - Past Medical History Previously Healthy: Yes Endocrine: Reports: None Cardiovascular: Reports: None Respiratory: Reports: COPD Hematological: Reports: None Gastrointestinal: Reports: None Genitourinary: Reports: None Neuro/Psych: Reports: None Musculoskeletal: Reports: None Cancer: Reports: None Last Menstrual Period: hysterectomy - Surgical History General Surgical History: Reports: Hysterectomy - Family History Family History: Reports: None - Social History Smoking Status: Former smoker Hx Substance Use: No Alcohol Screening: None Physical Exam - Physical Exam Appearance: Ill-appearing Ill-appearing: Mild Pain Distress: Mild Eyes: BETH, EOMI, Conjunctiva clear ENT: Ears normal, Nose normal, Oropharynx normal Respiratory: Breath sounds diminished, Rhonchi Cardiovascular: RRR, Pulses normal, No rub, No murmur GI/: Soft, Nontender, No masses, Bowel sounds normal, No Organomegaly Musculoskeletal: Normal strength, ROM intact, No edema, No calf tenderness Skin: Warm, Dry, Normal color Neurological: Sensation intact, Motor intact, Reflexes intact, Cranial nerves intact, Alert, Oriented Psychiatric: Affect appropriate, Mood appropriate Interpretation - Radiology Interpretation Radiology Results: No acute changes (COPD) Exam Interpreted: CT Scan (BRAIN NEGATIVE FOR ACUTE EVENT) - Direct Sales Professional Rate: Normal Rhythm: Sinus Ectopy: None - EKG Interpretation Rate: Normal Rhythm: Sinus Ectopy: None [place]: NL ST Segment: Normal EKG Comparison: No significant changes Rate: Normal Rhythm: Sinus Ectopy: None [place]: NL Physician Notification - Case Discussed Physician Notified: pmd Time of Notification: 10:36 (start toradol 30mg BID IV) Admit To: Inpatient Critical Care Note - Critical Care Note Total Time (mins): 0 Course - Course Hematology/Chemistry: 06/30/17 08:35 06/30/17 08:35 Orders, Labs, Meds: Lab Review 06/30/17 06/30/17 06/30/17 08:26 08:35 08:35 WBC 11.32 H RBC 3.61 L Hgb 10.7 L Hct 31.8 L MCV 88.1 MCH 29.6 MCHC 33.6 RDW Coeff of Elie 14.2 Plt Count 179 Immature Gran % (Auto) 0.4 Neut % (Auto) 78.9 Lymph % (Auto) 10.1 [place] % (Auto) 10.0 Eos % (Auto) 0.2 Baso % (Auto) 0.4 Immature Gran # (Auto) 0.0 Neut # (Auto) 9.0 H Lymph # (Auto) 1.1 [place] # (Auto) 1.1 Eos # (Auto) 0.0 Baso # (Auto) 0.0 PT INR APTT Puncture Site R brach O2 Saturation 100.0 ABG pH 7.55 H* ABG pCO2 29.0 L ABG pO2 147.0 H ABG HCO3 26 ABG Total CO2 27 ABG Base Excess 4 H [place] Test + O2 Delivery Device Nc Oxygen Liter Flow 2.50 FiO2 % 30.0 Sodium 135 L Potassium 3.9 Chloride 101 Carbon Dioxide 25 Anion Gap 12.9 BUN 7 Creatinine 0.69 Estimated GFR (MDRD) 83.00 BUN/Creatinine Ratio 10.14 Glucose 106 Calcium 9.9 Total Bilirubin 0.8 AST 16 ALT 10 L Alkaline Phosphatase 119 Total Creatine Kinase 84 Troponin I 0.0100 Total Protein 6.7 Albumin 3.1 L Globulin 3.6 Albumin/Globulin Ratio 0.86 Procalcitonin Influ A Molecular Assay Influ B Molecular Assay 06/30/17 06/30/17 06/30/17 08:35 08:35 08:45 WBC RBC Hgb Hct MCV MCH MCHC RDW Coeff of Elie Plt Count Immature Gran % (Auto) Neut % (Auto) Lymph % (Auto) [place] % (Auto) Eos % (Auto) Baso % (Auto) Immature Gran # (Auto) Neut # (Auto) Lymph # (Auto) [place] # (Auto) Eos # (Auto) Baso # (Auto) PT 25.6 H INR 2.58 APTT 42.3 H Puncture Site O2 Saturation ABG pH ABG pCO2 ABG pO2 ABG HCO3 ABG Total CO2 ABG Base Excess [place] Test O2 Delivery Device Oxygen Liter Flow FiO2 % Sodium Potassium Chloride Carbon Dioxide Anion Gap BUN Creatinine Estimated GFR (MDRD) BUN/Creatinine Ratio Glucose Calcium Total Bilirubin AST ALT Alkaline Phosphatase Total Creatine Kinase Troponin I Total Protein Albumin Globulin Albumin/Globulin Ratio Procalcitonin < 0.05 Influ A Molecular Assay Negative by naat Influ B Molecular Assay Negative by naat Orders Category Date Time Status ABG DRAW REQUEST Stat CARDIO 06/30/17 08:26 Completed EKG-(ED ONLY) Stat CARDIO 06/30/17 08:25 Completed EKG-(ED ONLY) Stat CARDIO 06/30/17 09:14 Completed NEBULIZER TREATMENT Routine CARDIO 06/30/17 09:09 Active NEBULIZER TREATMENT Stat CARDIO 06/30/17 08:28 Completed OXYGEN Routine CARDIO 06/30/17 09:11 Active ED IV/MEDIPORT/POWERPORT .ONCE EMERGENCY 06/30/17 08:25 Active ABG Stat LAB 06/30/17 08:26 Completed BLOOD CULTURE (ED ONLY) Stat LAB 06/30/17 08:35 Received CBC W/ AUTO DIFF Stat LAB 06/30/17 08:35 Completed COMPREHENSIVE METABOLIC PANEL Stat LAB 06/30/17 08:35 Completed CREATINE KINASE Stat LAB 06/30/17 08:35 Completed FLU A/B MOLECULAR Stat LAB 06/30/17 08:45 Completed PARTIAL THROMBOPLASTIN TIME Stat LAB 06/30/17 08:35 Completed PROCALCITONIN Stat LAB 06/30/17 08:35 Completed PT WITH INR Stat LAB 06/30/17 08:35 Completed TROPONIN I Stat LAB 06/30/17 08:35 Completed 0.9 % Sodium Chloride [Saline Flush] MEDS 06/30/17 08:25 Active 1 syr IVF PRN PRN Ipratropium/Albuterol Neb [Duoneb] MEDS 06/30/17 08:28 Discontinued 1 vial NEB ONCE STA Ipratropium/Albuterol Neb [Duoneb] MEDS 06/30/17 12:00 Active 1 vial NEB RTQ6H Lorazepam [Ativan] MEDS 06/30/17 09:04 Active 0.5 - 1 mg PO BID PRN Methylprednisolone Sod Succ/Pf [Solu-Medrol 125 mg] MEDS 06/30/17 08:27 Discontinued 125 mg IVP ONCE STA Methylprednisolone Sod Succ/Pf [Solu-Medrol 125 mg] MEDS 06/30/17 21:00 Active 80 mg IVP Q12HR Montelukast Sodium [Singulair] MEDS 06/30/17 21:00 Active 10 mg PO BEDTIME Sodium Chloride 0.9% [Sodium Chloride] 1,000 ml MEDS 06/30/17 08:28 Active IV 100 mls/hr Warfarin Sodium [Coumadin] MEDS 06/30/17 17:00 Active [address] CHEST W/O CONTRAST Stat RADS 06/30/17 09:[address] HEAD W/O CONTRAST Stat RADS 06/30/17 09:47 Completed Medications Generic Name Dose Route Start Last Admin Trade Name Elisa PRN Reason Stop Dose Admin Albuterol/Ipratropium 1 vial 06/30/17 12:00 Duoneb NEB RTQ6H OLVIN Sodium Chloride 1,000 mls @ 100 mls/hr 06/30/17 08:28 06/30/17 09:15 Sodium Chloride IV 06/30/17 18:27 100 mls/hr .Q10H STA Administration Lorazepam 0.5 - 1 mg 06/30/17 09:04 Ativan PO BID PRN Anxiety Methylprednisolone Sodium Succinate 80 mg 06/30/17 21:00 Solu-Medrol 125 Mg IVP Q12HR OLVIN Montelukast Sodium 10 mg 06/30/17 21:00 Singulair PO BEDTIME OLVIN Sodium Chloride 1 syr 06/30/17 08:25 06/30/17 08:50 Saline Flush IVF 1 syr PRN PRN Administration To flush IV Warfarin Sodium 5 mg 06/30/17 17:00 Coumadin PO QPM OLVIN Discontinued Medications Generic Name Dose Route Start Last Admin Trade Name Elisa PRN Reason Stop Dose Admin Albuterol/Ipratropium 1 vial 06/30/17 08:28 06/30/17 08:39 Duoneb NEB 06/30/17 08:29 1 vial ONCE STA Administration Methylprednisolone Sodium Succinate 125 mg 06/30/17 08:27 06/30/17 09:15 Solu-Medrol 125 Mg IVP 06/30/17 08:28 125 mg ONCE STA Administration Vital Signs: Temp Pulse Resp BP Pulse Ox 06/30/17 08:07 99.9 F H 98 H 20 136/67 95 MEHDI Risk Score MEHDI Risk Score: Risk Score Odds of by 30D 0 0.1 (0.1-0.2) 1 0.3 (0.2-0.3) 2 0.4 (0.3-0.5) 3 0.7 (0.6-0.9) 4 1.2 (1.0-1.5) 5 2.2 (1.9-2.6) 6 3.0 (2.5-3.6) 7 4.8 (3.8-6.1) Departure - Departure Time of Disposition: 10:34 (this pt s was seen at all times with AUGUST AND ABHI ) Disposition: ADMITTED INPATIENT Discharge Problem: Chest pain Instructions: Chest Pain (ED) Condition: Good Pt referred to PMD for follow-up: Yes IPMP verified?: No Additional Instructions: Please call your Family Physician as soon as possible to schedule a follow-up appointment. Allergies/Adverse Reactions: Allergies ciprofloxacin [From Cipro] Adverse Reaction (Verified 06/30/17 08:16) hydrocodone Adverse Reaction (Verified 06/30/17 08:16) Abdominal Pain [place], fatigue Home Medications: Ambulatory Orders Fluticasone/Salmeterol 250/50 [Advair 250-50 Diskus] 1 inh INH BID 03/04/13 Montelukast Sodium [Singulair] 10 mg PO BEDTIME 03/04/13 Pantoprazole Sodium [Protonix] 40 mg PO QDAC 03/04/13 Ipratropium/Albuterol Sulfate [Combivent Respimat Inhal [place]] 4 gm IH QID 01/07 Lorazepam [Ativan] 0.5 - 1 mg PO BID PRN 01/08/16 Tramadol HCl [Ultram] 50 mg PO BEDTIME PRN #50 tablet 01/11/16 Warfarin Sodium [Coumadin] 5 mg PO QPM 02/11/17 Tramadol HCl 1 tab PO BID PRN 05/06/17 Disposition Discussed With: Patient, Family
[2017-06-30] MEDS ORDERED: SOLU-MEDROL 125 MG IVP STA (08:27)
[2017-06-30] MEDS ORDERED: SODIUM CHLORIDE 1,000 ML IV STA (08:28)
[2017-06-30] MEDS ORDERED: DUONEB NEB STA (08:28)
--- NOTE | 2017-06-30 10:14 | CT ---
Exam: CT of the chest without contrast History: Shortness of breath Technique: [address] of the chest without intravascular contrast FINDINGS: Comparison CT dated 02/11/2017. The lung windows show severe emphysema with prominent api tala scarring. Stable right upper lobe stellate scarring measuring 4.8 mm short axis. No infiltrativ e opacities are seen. Prominent hilar and mediastinal lymph node calcifications. Atherosclerotic ca lcification of the aorta without aneurysm. No acute chest wall abnormality is seen. Impression: 1. Severe emphysematous change. No acute abnormalities of the chest.
--- NOTE | 2017-06-30 10:15 | CT ---
EXAM: CT BRAIN HISTORY: Head pain TECHNIQUE: CT brain without intravenous contrast. 5-mm axial sections with Reformations. COMPARISON: None FINDINGS: There is moderately severe periventricular and deep white matter low attenuation which although nonsp ecific is suggestive of chronic microvascular ischemic change. Brain is unremarkable without evidence of hemorrhage or large vessel distribution recent ischemic in farction. There is no suggestion of acute hydrocephalus or subdural fluid collection. No mass or ma ss effect. Cranium is intact. Mastoid processes are aerated. There is fluid within the left maxillary sinus wi th associated mucosal thickening. Cannot exclude nasal kayli bullous formation of a right-sided turb inate. IMPRESSION: 1. Moderately severe periventricular and deep white matter low attenuation which although nonspecifi c is suggestive of chronic microvascular ischemic change. 2. Acute on chronic sinusitis. Consider follow-up CT sinus.
[2017-06-30] MEDS ORDERED: TORADOL IVP PRN ×2 (10:39→13:00)
[2017-06-30] MEDS: DUONEB NEB SCH ×2 (11:19→16:50)
[2017-06-30] MEDS ORDERED: TYLENOL PO PRN (12:23)
[2017-06-30] MEDS ORDERED: VISTARIL INJ IM PRN (12:23)
[2017-06-30] MEDS ORDERED: MORPHINE 4 MG/ML VIAL IVP PRN (12:23)
[2017-06-30] MEDS ORDERED: NITROSTAT SL PRN (12:23)
[2017-06-30] MEDS ORDERED: ATROPINE SULFATE PFS IVP PRN (12:23)
[2017-06-30 12:48] VITALS: BMI 18.0
[2017-06-30] MEDS ORDERED: DECADRON 4 MG/ML SDV IM STA (12:56)
[2017-06-30] MEDS ORDERED: ULTRAM PO PRN (13:54)
--- NOTE | 2017-06-30 15:04 | DI ---
EXAM: Three views of the thoracic spine HISTORY: Neck and back pain TECHNIQUE: AP lateral, and swimmers lateral views of the thoracic spine were obtained. FINDINGS: The alignment of the thoracic spine is normal. The paraspinal soft tissues are normal. N o acute fractures are seen. There is mild degenerative disc disease and loss of disc height seen thro ughout the thoracic spine. IMPRESSION: No acute fractures are seen within the thoracic spine.
[2017-06-30] MEDS: ZITHROMAX PO SCH (15:18)
[2017-06-30] MEDS ORDERED: COUMADIN PO SCH (17:00)
[2017-06-30] MEDS: SINGULAIR PO SCH (20:27)
[2017-06-30] MEDS: ATIVAN PO PRN (20:27)
[2017-06-30] MEDS ORDERED: SOLU-MEDROL 125 MG IVP SCH (21:00)
[2017-06-30] MEDS ORDERED: SOLU-MEDROL 40 MG IVP SCH (21:00)
[2017-07-01] MEDS: DUONEB NEB SCH ×5 (00:35→23:40)
[2017-07-01] MEDS: PROTONIX PO SCH (06:22)
--- NOTE | 2017-07-01 07:59 | PN ---
DATE OF SERVICE: 06/30/17 SUBJECTIVE: 77 year old white female hospitalized through the emergency room with complaint of having chest pain, chest pain components with three different kinds of back pain going through the front. Also had pain in deep breathing, sharp shooting in the middle of the chest and also sternal pain in the center. Denied of any exertional chest discomfort or sweating or black out spells. She has no symptoms of CHF. The patient has severe chronic lung disease with cough with yellowish sputum production. The patient says that all these things going on for nearly 3-4 days. PHYSICAL EXAMINATION: HEENT: Head normocephalic, atraumatic. Eyes: Extraocular muscles are intact. Pupils are equal, round and reactive to light and accommodation. Ears: No lesions. Nose appeared normal. Throat: No exudate or erythema. NECK: Supple. No JVD, no carotid bruit. No lymphadenopathy or thyromegaly. LUNGS: Decreased breath sounds. Clear to auscultation. Percussion note normal. Chest symmetrical. HEART: S1, S2, no S3. No murmurs. No cyanosis or clubbing. No ascites. Pulses: Dorsalis pedis and posterior tibial pulses +1 to +2 both sides. The patient has Kyphosis ABDOMEN: Soft. Nontender. Bowel sounds active. No CVA tenderness. No mass felt. EXTREMITIES: No edema. Full range of motion of all extremities, equal. NEUROLOGIC: No focal deficit. Cranial nerves II through XII are grossly intact. No headache, no double vision or headache. SKIN: Not dry. Intact. Turgor - normal. LYMPHATIC: No palpable lymph nodes/no lymphedema. MUSCULOSKELETAL: Normal joints with no swelling. Muscle tone is normal. ASSESSMENT: 1. Acute bronchitis/pneumonitis 2. Pleuritic pain 3. Some component of musculoskeletal rule out IN or ischemia PLAN: 1. Routine telemetry order 2. Zithromax 500mg daily for 3 days 3. Steroids 4. Toradol IV CONDITION: Stable. TIME SPENT: More than 30 minutes. Plan and coordination of the patient's care discussed in the presence of nurse. ANETA
[2017-07-01] MEDS ORDERED: PROLIA SUBCUT STA (08:31)
[2017-07-01] MEDS ORDERED: ZOFRAN 4 MG/2 ML IVP PRN (08:33)
[2017-07-01] MEDS: ZITHROMAX PO SCH (08:50)
[2017-07-01] MEDS: OXYCODONE PO PRN ×2 (08:50→23:58)
[2017-07-01] MEDS: DECADRON 4 MG/ML SDV IM SCH (08:51)
[2017-07-01] MEDS: ASPIRIN EC PO SCH (08:52)
[2017-07-01] MEDS ORDERED: ULTRAM PO PRN (09:00)
[2017-07-01] MEDS ORDERED: ZITHROMAX 500 MG in SODIUM CHLORIDE 250 ML IV SCH (09:00)
--- NOTE | 2017-07-01 10:58 | PCM.PROG ---
Attending Provider: ATTENDING PROVIDER: Dr. RAISA RASCON This patient is seen with Zuly Henry, Nurse Practitioner. DATE OF SERVICE: 07/01/17 SUBJECTIVE: This 77 year old WHITE/ F was hospitalized 06/30/17. The patient is sitting in bed, alert. The pain is somewhat improved in neck and shoulders but still somewhat significant. The patient has not had a DEXA scan in a few years, which I have scheduled as inpatient due to nursing home Prednisone use, osteopenia, low body weight and recent compression fracture. Daughter is in the room. REVIEW OF SYSTEMS: CONSTITUTIONAL: No night sweats. No fatigue, malaise, lethargy. No fever or chills. HEENT: Eyes: No visual changes. No eye pain. No eye discharge. ENT: No runny nose. No epistaxis. No sinus pain. No odynophagia. No congestion. RESPIRATORY: No cough, no congestion. No hemoptysis. No shortness of breath. CARDIOVASCULAR: No angina symptoms. No CHF symptoms. No atypical chest pain for CAD. No palpitations. No orthopnea.. GASTROINTESTINAL: No abdominal pain. No nausea or vomiting. No diarrhea or constipation. No hematemesis. No hematochezia. GENITOURINARY: No urgency. No frequency. No dysuria. No hematuria. No obstructive symptoms. No discharge. No pain. No significant abnormal bleeding. MUSCULOSKELETAL: Neck and shoulder pain. NEUROLOGICAL: Awake, alert, oriented to time, place and person. No headache. No neck pain. No syncope. No seizures. No dizziness. PSYCHIATRIC: Not anxious. No depression. No suicidal thoughts. No homicidal thoughts. SKIN: No rash. No lesions. No wounds. ENDOCRINE: No unexplained weight loss. No weight gain. HEMATOLOGIC/LYMPHATIC: No anemia. No purpura. No petechiae. No prolonged or excessive bleeding. No palpable lymph nodes. PHYSICAL EXAMINATION: GENERAL: The patient is awake, alert and oriented, lying in bed in no distress. VITAL SIGNS: Temperature 97.8 F, Pulse 100, Respiratory Rate 20, BP 114/66, Pulse Ox 95% HEENT: Head normocephalic, atraumatic. Eyes: Extraocular muscles are intact. Pupils are equal, round and reactive to light and accommodation. Ears: No lesions. Nose appeared normal. Throat: No exudate or erythema. NECK: Supple. No JVD, no carotid bruit. No lymphadenopathy or thyromegaly. LUNGS: Diminished breath sounds bilaterally. Clear to auscultation. Percussion note normal. Chest symmetrical. HEART: S1, S2, no S3. No murmurs. No cyanosis or clubbing. No ascites. Pulses: Dorsalis pedis and posterior tibial pulses +1 to +2 both sides. ABDOMEN: Soft. Non-tender. Bowel sounds active. No CVA tenderness. No mass felt. EXTREMITIES: No edema. Full range of motion of all extremities, equal. NEUROLOGIC: No focal deficit. Cranial nerves II through XII are grossly intact. No headache, no double vision or headache. SKIN: Not dry. Intact. Turgor-normal. LYMPHATIC: No palpable lymph nodes/no lymphedema. MUSCULOSKELETAL: Normal joints with no swelling. Muscle tone is normal. LAB REVIEW: 07/01/17 04:30 07/01/17 04:30 07/01/17 04:30: WBC 7.58, RBC 3.81 L, Hgb 11.1 L, Hct 33.6 L, MCV 88.2, MCH 29.1 , MCHC 33.0, RDW Coeff of Elie 13.7, Plt Count 186, Immature Gran % (Auto) 0.4, Neut % (Auto) 90.6, Lymph % (Auto) 6.2 L, [place] % (Auto) 2.8, Eos % (Auto) 0.0, Baso % (Auto) 0.0, Immature Gran # (Auto) 0.0, Neut # (Auto) 6.9, Lymph # (Auto ) 0.5 L, [place] # (Auto) 0.2 L, Eos # (Auto) 0.0, Baso # (Auto) 0.0 07/01/17 04:30: Sodium 139, Potassium 4.2, Chloride 104, Carbon Dioxide 25, Anion Gap 14.2, BUN 16, Creatinine 0.72, Estimated GFR (MDRD) 79.00, BUN/ Creatinine Ratio 22.22, Glucose 146 H, Calcium 10.5 H, Total Bilirubin 0.3, AST 16, ALT 12, Alkaline Phosphatase 139, Total Protein 6.8, Albumin 3.0 L, Globulin 3.8, Albumin/Globulin Ratio 0.79 06/30/17 20:36: Total Creatine Kinase 88, Troponin I < 0.0100 06/30/17 16:17: Total Creatine Kinase 96, Troponin I 0.0100 06/30/17 14:26: Urine Color Yellow, Urine Clarity Clear, Urine pH 7.0, Ur Specific [place] 1.010, Urine Protein Negative, Urine Glucose (UA) Negative, Urine Ketones 1+, Urine Blood Trace-intact, Urine Nitrite Negative, Urine Bilirubin Negative, Urine Urobilinogen 0.2, Ur Leukocyte Esterase Negative, Urine Microscopic RBC 0-2, Ur Squamous Epith Cells 0-2 ASSESSMENT: 1. Atypical chest pain related to severe osteoarthritis 2. Degenerative disk disease of C-spine 3. Possible compression fracture 4. History of osteopenia 5. Underweight 6. COPD PLAN: 1. Repeat INR 2. D/C Solu-Medrol 3. Warm compresses to right arm at IV site 4. DEXA scan 5. Oxycodone 5 mg t.i.d. p.r.n. 6. D/C Morphine 7. Zofran 4 mg t.i.d. p.r.n. Plan and coordination of the patient's care discussed in the presence of Finisher Screwdown and nurse. CONDITION: Stable SCRIBED BY: ZO DANG Filter Tank Operator scribed while in presence of service performed by Dr. Rascon/Zuly Henry APRN on 07/01/17 ([id number])
[2017-07-01] MEDS: ATIVAN PO PRN (21:16)
[2017-07-01] MEDS: SINGULAIR PO SCH (21:17)
[2017-07-02] MEDS: DUONEB NEB SCH ×4 (05:21→22:38)
[2017-07-02] MEDS: PROTONIX PO SCH (05:42)
--- NOTE | 2017-07-02 09:57 | PCM.PROG ---
Attending Provider: ATTENDING PROVIDER: Dr. RAISA RASCON This patient is seen with Zuly Henry, Nurse Practitioner. DATE OF SERVICE: 07/02/17 SUBJECTIVE: This 77 year old WHITE/ F was hospitalized 06/30/17. Lying in bed, alert. The patient took one Oxycodone yesterday and significantly helped with breakthrough pain. We will make Ultram scheduled and use Oxycodone for breakthrough pain. REVIEW OF SYSTEMS: CONSTITUTIONAL: No night sweats. No fatigue, malaise, lethargy. No fever or chills. HEENT: Eyes: No visual changes. No eye pain. No eye discharge. ENT: No runny nose. No epistaxis. No sinus pain. No odynophagia. No congestion. RESPIRATORY: No cough, no congestion. No hemoptysis. Shortness of breath. CARDIOVASCULAR: No angina symptoms. No CHF symptoms. No atypical chest pain for CAD. No palpitations. No orthopnea.. GASTROINTESTINAL: No abdominal pain. No nausea or vomiting. No diarrhea or constipation. No hematemesis. No hematochezia. GENITOURINARY: No urgency. No frequency. No dysuria. No hematuria. No obstructive symptoms. No discharge. No pain. No significant abnormal bleeding. MUSCULOSKELETAL: Neck and shoulder pain. NEUROLOGICAL: Awake, alert, oriented to time, place and person. No headache. No neck pain. No syncope. No seizures. No dizziness. PSYCHIATRIC: Not anxious. No depression. No suicidal thoughts. No homicidal thoughts. SKIN: No rash. No lesions. No wounds. ENDOCRINE: No unexplained weight loss. No weight gain. HEMATOLOGIC/LYMPHATIC: No anemia. No purpura. No petechiae. No prolonged or excessive bleeding. No palpable lymph nodes. PHYSICAL EXAMINATION: GENERAL: The patient is awake, alert and oriented, lying in bed in no distress. VITAL SIGNS: Temperature 98.4 F, Pulse 87, Respiratory Rate 16, BP 128/71, Pulse Ox 100% HEENT: Head normocephalic, atraumatic. Eyes: Extraocular muscles are intact. Pupils are equal, round and reactive to light and accommodation. Ears: No lesions. Nose appeared normal. Throat: No exudate or erythema. NECK: Supple. No JVD, no carotid bruit. No lymphadenopathy or thyromegaly. LUNGS: Diminished breath sounds bilaterally. Clear to auscultation. Percussion note normal. Chest symmetrical. HEART: S1, S2, no S3. No murmurs. No cyanosis or clubbing. No ascites. Pulses: Dorsalis pedis and posterior tibial pulses +1 to +2 both sides. ABDOMEN: Soft. Non-tender. Bowel sounds active. No CVA tenderness. No mass felt. EXTREMITIES: No edema. Full range of motion of all extremities, equal. NEUROLOGIC: No focal deficit. Cranial nerves II through XII are grossly intact. No headache, no double vision or headache. SKIN: Not dry. Intact. Turgor-normal. LYMPHATIC: No palpable lymph nodes/no lymphedema. MUSCULOSKELETAL: Normal joints with no swelling. Muscle tone is normal. LAB REVIEW: 07/02/17 05:00 07/02/17 05:00 07/02/17 05:00: PT 29.6 H, INR 2.99 07/02/17 05:00: WBC 13.06 H D, RBC 3.39 L, Hgb 9.9 L, Hct 29.8 L, MCV 87.9, MCH 29.2, MCHC 33.2, RDW Coeff of Elie 14.1, Plt Count 221, Immature Gran % (Auto) 0.5, Neut % (Auto) 85.8, Lymph % (Auto) 7.2 L, [place] % (Auto) 6.4, Eos % (Auto) 0.0, Baso % (Auto) 0.1, Immature Gran # (Auto) 0.1, Neut # (Auto) 11.2 H, Lymph # (Auto) 0.9, [place] # (Auto) 0.8, Eos # (Auto) 0.0, Baso # (Auto) 0.0 07/02/17 05:00: Sodium 139, Potassium 3.8, Chloride 104, Carbon Dioxide 27, Anion Gap 11.8, BUN 22 H, Creatinine 0.73, Estimated GFR (MDRD) 78.00, BUN/ Creatinine Ratio 30.13, Glucose 102, Calcium 9.5, Total Bilirubin 0.2, AST 17, ALT 11 L, Alkaline Phosphatase 116, Total Protein 6.1, Albumin 2.9 L, Globulin 3.2, Albumin/Globulin Ratio 0.91 07/01/17 12:20: PT 32.8 H D, INR 3.33 ASSESSMENT: 1. Atypical chest pain related to severe osteoarthritis 2. Degenerative disk disease of C-spine 3. Osteopenia 4. Underweight 5. COPD PLAN: 1. Ultram twice a day, scheduled 2. Oxycodone p.r.n. 3. Hold Coumadin Plan and coordination of the patient's care discussed in the presence of Sustain Engineer and nurse. CONDITION: Stable SCRIBED BY: ZO DANG Drivers' Cash Clerk scribed while in presence of service performed by Dr. Rascon/Zuly Henry APRN on 07/02/17 ([id number])
[2017-07-02] MEDS: ZITHROMAX PO SCH (10:13)
[2017-07-02] MEDS: ASPIRIN EC PO SCH (10:13)
[2017-07-02] MEDS: DECADRON 4 MG/ML SDV IM SCH (10:14)
[2017-07-02] MEDS: ULTRAM PO SCH ×2 (10:19→21:30)
[2017-07-02] MEDS: OXYCODONE PO PRN (18:20)
[2017-07-02] MEDS: SINGULAIR PO SCH (21:30)
[2017-07-02] MEDS: ATIVAN PO PRN (21:38)
[2017-07-03] MEDS: DUONEB NEB SCH (04:38)
[2017-07-03] MEDS: PROTONIX PO SCH (05:32)
[2017-07-03 05:56] VITALS: BP 117/72; TEMP 97.9
[2017-07-03] MEDS: ASPIRIN EC PO SCH (08:11)
[2017-07-03] MEDS: ULTRAM PO SCH (09:18)
[2017-07-03] MEDS: DECADRON 4 MG/ML SDV IM SCH (09:19)
--- NOTE | 2017-07-03 09:27 | CM.DICTOOL ---
ADMISSION: 06/30/17 10:48 DISCHARGE: 07/03/17 DATE OF SERVICE: 07/03/17 FINAL DIAGNOSIS ATYPICAL CHEST PAIN R/T SEVERE OSTEOARTHRITIS DEGENERATIVE DISC DISEASE OSTEOPENIA- HIPS (DEXA SCAN, 01/04) COPD LOW BMI (18.0) SEVERE COPD (HOME OXYGEN CONTINUOUS) HISTORY OF PSEUDOMONAS AERUGINOSA-SPUTUM, 04/2017 PULMONARY NODULE (DR. 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) GERD ANEMIA HYPERGLYCEMIA (STEROIDS) DEGENERATIVE DISEASE OF THE C-SPINE OSTEOARTHRITIS, RIGHT SHOULDER GOUT FORMER HEAVY SMOKER (NONE SINCE 2014) HYSTERECTOMY APPENDECTOMY LAST ECHO AT [facility], 05/07/17 LVEF 78% ENLARGED RIGHT VENTRICULAR CAVITY SIZE NORMAL LEFT VENTRICLE NORMAL VALVES LAST PFT AT [facility], 10/04 SEVERE COPD LAST VITALS Temp Pulse Resp BP Pulse Ox 97.9 F 89 19 117/72 100 07/03/17 05:55 07/03/17 05:55 07/03/17 05:55 07/03/17 05:55 07/03/17 05:55 ACTIVE HOME MEDICATIONS Albuterol/Ipratropium (Combivent Respimat Inhal [place]) Fluticasone/Salmeterol 250/50 (Advair Diskus) 1 inh INH BID Lorazepam (Ativan) 0.5 - 1 mg PO BID PRN PRN Reason: Anxiety Last Admin: 07/02/17 21:38 Dose: 0.5 mg Montelukast Sodium (Singulair) 10 mg PO BEDTIME [facility] Last Admin: 07/02/17 21:30 Dose: 10 mg Pantoprazole Sodium (Protonix) 40 mg PO QDAC [facility] Last Admin: 07/03/17 05:32 Dose: 40 mg Tramadol HCl (Ultram) 50 mg PO BID [facility] Last Admin: 07/02/17 21:30 Dose: 50 mg Tramadol HCL (Ultram) 50 mg PO BEDTIME PRN Warfarin Sodium (Coumadin) 5 mg PO QPM [facility] Last Admin: 06/30/17 19:09 Dose: 5 mg ALLERGIES ciprofloxacin [From Cipro] Adverse Reaction (Verified 06/30/17 08:16) hydrocodone Adverse Reaction (Verified 06/30/17 08:16) Abdominal Pain NEW PRESCRIPTIONS: OXYCODONE 5 MG, TAKE ONE TABLET BY MOUTH DAILY NEEDED FOR BREAKTHROUGH PAINUNRELIEVED BY YOUR ULTRAM PREDNISONE 10 MG, TAKE 2 TABS (20 MG) BY MOUTH DAILY FOR 5 DAYS, THEN TAKE 1 TAB (10 MG) BY MOUTH DAILY FOR 5 DAYS, THEN STOP. TAKE THIS MEDICATION WITH RAULITO SMOKING: FORMER SMOKER, NONE SINCE 2014 DISEASE SPECIFIC EDUCATION: OSTEOARTHRITIS PAIN MANAGEMENT HOME MEDICATIONS NEW PRESCRIPTIONS FOLLOW UP LAB REVIEW: 07/02/17 05:00 07/02/17 05:00 07/03/17 05:30: PT 26.2 H, INR 2.64 PLAN: DISCHARGE HOME TODAY RETURN TO SEE DR. RASCON IN HIS OFFICE ON 07/10/17 AT 10 A.M. RESUME YOUR HOME MEDICATIONS PER LIST PROVIDED BY THE NURSING STAFF NEW MEDICATIONS OXYCODONE 5 MG, TAKE ONE TABLET BY MOUTH DAILY NEEDED FOR BREAKTHROUGH PAINUNRELIEVED BY YOUR ULTRAM PREDNISONE 10 MG, TAKE 2 TABS (20 MG) BY MOUTH DAILY FOR 5 DAYS, THEN TAKE 1 TAB (10 MG) BY MOUTH DAILY FOR 5 DAYS, THEN STOP. TAKE THIS MEDICATION WITH FOOD. DIET HEALTHY HEART ACTIVITY GET PLENTY OF REST AT HOME. GRADUALLY INCREASE YOUR ACTIVITY LEVEL ACCORDING TO YOUR TOLERATION SUMMARY THE PATIENT IS ALERT AND ORIENTED X3. SHE CURRENTLY RESIDES AT HOME WITH HER SPOUSE. SHE HAS BEEN INDEPENDENT WITH ADL'S. SHE IS OXYGEN DEPENDENT AT HOME AND HAS [employer]QUATE DME AND OXYGEN SUPPLIES. SHE ALSO HAS A NEBULIZER. SHE DESIRES TO RETURN HOME AT DISCHARGE. HER SKIN TURGOR IS INTACT WITH THE EXCEPTION OF BRUISING TO HER ANTICUBITAL AREA. SHE HAS NO DECUBITUS ULCERS AT DISCHARGE. HYDRATION AND NUTRITIONAL STATUS ARE GOOD. MS. STEINBERG'S CHEST PAIN WAS NONCARDIAC AND RELATED TO SEVERE OSTEOARTHRITIS. HER PAIN WAS MANAGED BY CHANGING SOME OF HER MEDICATIONS. TODAY, MS. STEINBERG TELLS US HER PAIN IS CONTROLLED WITH THE MEDICATION CHANGES MADE DURING THIS STAY. SHE IS ABLE TO BE UP AND ABOUT INDEPENDENTLY. MS. STEINBERG WILL BE DISCHARGED HOME WITH THESE CHANGES IN EFFECT. WE WILL FOLLOW HER THROUGH THE OFFICE NEXT WEEK. CURRENT CODE STATUS DO NOT RESUSCITATE JAZZMINE CHEW APRN RAISA RASCON M.D.
--- NOTE | 2017-07-03 10:22 | PCM.PROG ---
Attending Provider: ATTENDING PROVIDER: Dr. RAISA RASCON This patient is seen with Zuly Henry, Nurse Practitioner. DATE OF SERVICE: 07/03/17 SUBJECTIVE: This 77 year old WHITE/ F was hospitalized 06/30/17. The patient is sitting in bed, alert. She is standing, making her bed. She states pain is better. Pain has been under control with Ultram b.i.d. and Oxycodone once a day for breakthrough pain. REVIEW OF SYSTEMS: CONSTITUTIONAL: No night sweats. No fatigue, malaise, lethargy. No fever or chills. HEENT: Eyes: No visual changes. No eye pain. No eye discharge. ENT: No runny nose. No epistaxis. No sinus pain. No odynophagia. No congestion. RESPIRATORY: No cough, no congestion. No hemoptysis. Shortness of breath as usual. CARDIOVASCULAR: No angina symptoms. No CHF symptoms. No atypical chest pain for CAD. No palpitations. No orthopnea.. GASTROINTESTINAL: No abdominal pain. No nausea or vomiting. No diarrhea or constipation. No hematemesis. No hematochezia. GENITOURINARY: No urgency. No frequency. No dysuria. No hematuria. No obstructive symptoms. No discharge. No pain. No significant abnormal bleeding. MUSCULOSKELETAL: Neck and right shoulder pain. NEUROLOGICAL: Awake, alert, oriented to time, place and person. No headache. No neck pain. No syncope. No seizures. No dizziness. PSYCHIATRIC: Not anxious. No depression. No suicidal thoughts. No homicidal thoughts. SKIN: No rash. No lesions. No wounds. ENDOCRINE: No unexplained weight loss. No weight gain. HEMATOLOGIC/LYMPHATIC: No anemia. No purpura. No petechiae. No prolonged or excessive bleeding. No palpable lymph nodes. PHYSICAL EXAMINATION: GENERAL: The patient is awake, alert and oriented, lying/sitting in bed in no distress. VITAL SIGNS: Temperature 97.9 F, Pulse 89, Respiratory Rate 19, BP 117/72, Pulse Ox 100% HEENT: Head normocephalic, atraumatic. Eyes: Extraocular muscles are intact. Pupils are equal, round and reactive to light and accommodation. Ears: No lesions. Nose appeared normal. Throat: No exudate or erythema. NECK: Supple. No JVD, no carotid bruit. No lymphadenopathy or thyromegaly. LUNGS: Diminished breath sounds. Clear to auscultation. Percussion note normal. Chest symmetrical. HEART: S1, S2, no S3. No murmurs. No cyanosis or clubbing. No ascites. Pulses: Dorsalis pedis and posterior tibial pulses +1 to +2 both sides. ABDOMEN: Soft. Non-tender. Bowel sounds active. No CVA tenderness. No mass felt. EXTREMITIES: No edema. Full range of motion of all extremities, equal. NEUROLOGIC: No focal deficit. Cranial nerves II through XII are grossly intact. No headache, no double vision or headache. SKIN: Not dry. Intact. Turgor-normal. LYMPHATIC: No palpable lymph nodes/no lymphedema. MUSCULOSKELETAL: Normal joints with no swelling. Muscle tone is normal. LAB REVIEW: 07/02/17 05:00 07/02/17 05:00 07/03/17 05:30: PT 26.2 H, INR 2.64 ASSESSMENT: 1. Atypical chest pain related to severe osteoarthritis 2. Degenerative disk disease of C-spine 3. Osteopenia 4. Underweight 5. COPD PLAN: 1. Discharge home today 2. INR before discharge 3. Prednisone 20 mg once a day for 5 days then 10 mg once a day for five days 4. Oxycodone 5 mg one daily for breakthrough pain Plan and coordination of the patient's care discussed in the presence of Display Department Manager and nurse. CONDITION: Stable SCRIBED BY: ZO DANG Stereo Equipment Installer scribed while in presence of service performed by Dr. Rascon/Zuly Henry APRN on 07/03/17 ([id number])
--- NOTE | 2017-07-03 15:16 | HP ---
DATE OF SERVICE: 06/30/17 REASON FOR HOSPITALIZATION/HISTORY OF PRESENT ILLNESS: This is a 77 year old white female with severe COPD and osteoarthritis in multiple areas which is worsening as her breathing worsens. She is oxygen dependant with poor posturing and the extreme effort it takes for her to breath her osteoarthritis has worsened. She presents today with intractable right shoulder and neck pain. PAST MEDICAL HISTORY: COPD oxygen dependant Generalized osteoarthritis Osteoarthritis of right shoulder Degenerative joint disease of the spine Osteopenia GERD Anxiety History of PE History of pulmonary nodules which is followed by Dr. Peterson PAST SURGICAL HISTORY: ATUL-40 years ago REVIEW OF SYSTEMS: CONSTITUTIONAL: No night sweats. No fatigue, malaise, lethargy. No fever or chills. HEENT: Eyes: No visual changes. No eye pain. No eye discharge. ENT: No runny nose. No epistaxis. No sinus pain. No sore throat. No odynophagia. No ear pain. No congestion. RESPIRATORY: No cough, no congestion. No hemoptysis. Shortness of breath. CARDIOVASCULAR: No angina symptoms. No CHF symptoms. No atypical chest pain for CAD. No palpitations. No orthopnea. GASTROINTESTINAL: No abdominal pain. No nausea or vomiting. No diarrhea or constipation. No hematemesis. No hematochezia. GENITOURINARY: No urgency. No frequency. No dysuria. No hematuria. No obstructive symptoms. No discharge. No pain. No significant abnormal bleeding. MUSCULOSKELETAL: No musculoskeletal pain. No joint swelling. No arthritis. Intractable neck and shoulder pain. NEUROLOGICAL: No headache. No neck pain. No syncope. No seizures. No dizziness. PSYCHIATRIC: Not anxious. No depression. No suicidal thoughts. No homicidal thoughts. SKIN: No rash. No lesions. No wounds. ENDOCRINE: No unexplained weight loss. No weight gain. HEMATOLOGIC/LYMPHATIC: No anemia. No purpura. No petechiae. No prolonged or excessive bleeding. No palpable lymph nodes. PERSONAL/FAMILY/SOCIAL HISTORY: The patient is a previous smoker. She currently resides at home with . No alcohol or illicit drug use. She wears oxygen continuously. MEDICATIONS: Singulair 10mg Po bedtime Advair 250-50 diskus one puff twice a day Protonix 40mg PO QDAC Combivent Respimat inhaler 4gram IH four times a day Lorazepam 0.5-1mg PO twice a day PRN Ultram 50mg PO bedtime PRN Coumadin 5mg PO QPM Tramadol 50mg PO twice a day PRN ALLERGIES: Ciprofloxacin Hydrocodone PHYSICAL EXAMINATION: VITAL SIGNS: Temperature 97.8, heart rate 100, respiratory rate 20, blood pressure 112/66 and pulse ox 95% on 2.5 liters. HEENT: Head normocephalic, atraumatic. Eyes: Extraocular muscles are intact. Pupils are equal, round and reactive to light and accommodation. Ears: No lesions. Nose appeared normal. Throat: No exudate or erythema. NECK: Supple. No JVD, no carotid bruit. No lymphadenopathy or thyromegaly. LUNGS: Clear to auscultation. Percussion note normal. Chest symmetrical. HEART: S1, S2, no S3. No murmurs. No cyanosis or clubbing. No ascites. Pulses: Dorsalis pedis and posterior tibial pulses +1 to +2 both sides. ABDOMEN: Soft. Nontender. Bowel sounds active. No CVA tenderness. No mass felt. EXTREMITIES: No edema. Full range of motion of all extremities, equal. NEUROLOGIC: No focal deficit. Cranial nerves II through XII are grossly intact. No headache, no double vision or headache. SKIN: Not dry. Intact. Turgor - normal. LYMPHATIC: No palpable lymph nodes/no lymphedema. MUSCULOSKELETAL: Normal joints with no swelling. Muscle tone is normal. LABS: X-ray of T spine shows degenerative changes, no acute compression fractures. Initial INR is greater than 3 we will hold her Coumadin. ASSESSMENT: 1. Atypical chest pain related to arthritis and COPD 2. Severe COPD 3. Degenerative disk disease of C spine 4. C spine osteoarthritis 5. Right shoulder arthritis PLAN: 1. We will admit to the floor 2. Start on 4mg of Decadron IM daily 3. Toradol 30mg IV Q 8 hours 4. Oxygen as needed 5. Chest x-ray 6. Routine telemetry orders 7. Continue home medications 8. Start on Zithromax 500mg PO daily x 3 days. 9. Hold Coumadin for today for elevated INR 10.Regular diet 11.Daily CBC and CMP and INR TIME SPENT: More than 70 minutes. MTDD
--- NOTE | 2017-07-04 10:45 | PN ---
DATE OF SERVICE: 07/03/17 SUBJECTIVE: The patient was seen and examined with the Nurse Practitioner. The patient's condition improved remarkably. She seems to be very calm and doesn't have any pleuritic pain or arthritic pain. Her breathing is much better. The patient will be discharged home on Ultram and Oxycodone. Oxycodone potential for addiction discussed. Side effects discussed. The patient is feeling a lot better with 5-325 Oxycodone. PHYSICAL EXAMINATION: HEENT: Head normocephalic, atraumatic. Eyes: Extraocular muscles are intact. Pupils are equal, round and reactive to light and accommodation. Ears: No lesions. Nose appeared normal. Throat: No exudate or erythema. NECK: Supple. No JVD, no carotid bruit. No lymphadenopathy or thyromegaly. LUNGS: Decreased breath sounds but Clear to auscultation. Percussion note normal. Chest symmetrical. HEART: S1, S2, no S3. No murmurs. No cyanosis or clubbing. No ascites. Pulses: Dorsalis pedis and posterior tibial pulses +1 to +2 both sides. ABDOMEN: Soft. Nontender. Bowel sounds active. No CVA tenderness. No mass felt. EXTREMITIES: No edema. Full range of motion of all extremities, equal. NEUROLOGIC: No focal deficit. Cranial nerves II through XII are grossly intact. No headache, no double vision or headache. SKIN: Not dry. Intact. Turgor - normal. LYMPHATIC: No palpable lymph nodes/no lymphedema. MUSCULOSKELETAL: Normal joints with no swelling. Muscle tone is normal. The patient was seen and examined with Nurse Practitioner. TIME SPENT: More than 30 minutes. Plan and coordination of the patient's care discussed in the presence of nurse. ANETA
--- NOTE | 2017-07-04 10:46 | PN ---
06/30/17: Level 5 07/01/17: Intermediate 07/02/17: Intermediate 07/03/17: D as in discharge MTDD
--- NOTE | 2017-07-04 13:38 | PN ---
DATE OF SERVICE: 07/01/17 SUBJECTIVE: The patient was seen and examined with Nurse Practitioner. The patient's condition has improved. Her pain is much less and under control. She will be put on oxycodone temporarily but her pleuritic pain is better. The T spine doesn 't show any compression fracture but she has osteoporosis. She is advised to take Prolia. The arrangements for the Prolia injections would be made as an outpatient. CONDITION: Stable. TIME SPENT: More than 30 minutes. Plan and coordination of the patient's care discussed in the presence of nurse. ANETA
--- NOTE | 2017-07-07 10:52 | PN ---
DATE OF SERVICE: 07/02/17 SUBJECTIVE: The patient was seen and examined with Nurse Practitioner. The patient is 77 year old white female hospitalized with acute bronchitis. The patient has a pleuritic type of pain along with arthritic pain. The patient seems to be under control with Ultram three times a day and one Oxycodone. Her pain is under control. The patient's cardiovascular status is stable. PHYSICAL EXAMINATION: HEENT: Head normocephalic, atraumatic. Eyes: Extraocular muscles are intact. Pupils are equal, round and reactive to light and accommodation. Ears: No lesions. Nose appeared normal. Throat: No exudate or erythema. NECK: Supple. No JVD, no carotid bruit. No lymphadenopathy or thyromegaly. LUNGS: Decreased breath sounds but good air. Percussion note normal. Chest symmetrical. HEART: S1, S2, no S3. No murmurs. No cyanosis or clubbing. No ascites. Pulses: Dorsalis pedis and posterior tibial pulses +1 to +2 both sides. ABDOMEN: Soft. Nontender. Bowel sounds active. No CVA tenderness. No mass felt. EXTREMITIES: No edema. Full range of motion of all extremities, equal. NEUROLOGIC: No focal deficit. Cranial nerves II through XII are grossly intact. No headache, no double vision or headache. SKIN: Not dry. Intact. Turgor - normal. LYMPHATIC: No palpable lymph nodes/no lymphedema. MUSCULOSKELETAL: Normal joints with no swelling. Muscle tone is normal. CONDITION: Stable TIME SPENT: More than 30 minutes. Plan and coordination of the patient's care discussed in the presence of nurse. ANETA
--- NOTE | 2017-07-10 15:13 | DS ---
DATE OF SERVICE: 07/03/17 FINAL DIAGNOSIS: ATYPICAL CHEST PAIN R/T SEVERE OSTEOARTHRITIS DEGENERATIVE DISC DISEASE OSTEOPENIA- HIPS (DEXA SCAN, 01/04) COPD LOW BMI (18.0) SEVERE COPD (HOME OXYGEN CONTINUOUS) HISTORY OF PSEUDOMONAS AERUGINOSA-SPUTUM, 04/2017 PULMONARY NODULE (DR. 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) GERD ANEMIA HYPERGLYCEMIA (STEROIDS) DEGENERATIVE DISEASE OF THE C-SPINE OSTEOARTHRITIS, RIGHT SHOULDER GOUT FORMER HEAVY SMOKER (NONE SINCE 2014) HYSTERECTOMY APPENDECTOMY LAST ECHO AT [facility], 05/07/17 LVEF 78% ENLARGED RIGHT VENTRICULAR CAVITY SIZE NORMAL LEFT VENTRICLE NORMAL VALVES LAST PFT AT [facility], 10/04 SEVERE COPD LAST VITALS: Temp Pulse Resp BP Pulse Ox 97.9 F 89 19 117/72 100 ACTIVE HOME MEDICATIONS: Albuterol/Ipratropium (Combivent Respimat Inhal [place]) Fluticasone/Salmeterol 250/50 (Advair Diskus) 1 inh INH BID Lorazepam (Ativan) 0.5 - 1 mg PO BID PRN PRN Reason: Anxiety Last Admin: 07/02/17 21:38 Dose: 0.5 mg Montelukast Sodium (Singulair) 10 mg PO BEDTIME [facility] Last Admin: 07/02/17 21:30 Dose: 10 mg Pantoprazole Sodium (Protonix) 40 mg PO QDAC [facility] Last Admin: 07/03/17 05:32 Dose: 40 mg Tramadol HCl (Ultram) 50 mg PO BID [facility] Last Admin: 07/02/17 21:30 Dose: 50 mg Tramadol HCL (Ultram) 50 mg PO BEDTIME PRN Warfarin Sodium (Coumadin) 5 mg PO QPM [facility] Last Admin: 06/30/17 19:09 Dose: 5 mg ALLERGIES: ciprofloxacin [From Cipro] Adverse Reaction (Verified 06/30/17 08:16) hydrocodone Adverse Reaction (Verified 06/30/17 08:16) Abdominal Pain NEW PRESCRIPTIONS: OXYCODONE 5 MG, TAKE ONE TABLET BY MOUTH DAILY NEEDED FOR BREAKTHROUGH PAINUNRELIEVED BY YOUR ULTRAM PREDNISONE 10 MG, TAKE 2 TABS (20 MG) BY MOUTH DAILY FOR 5 DAYS, THEN TAKE 1 TAB (10 MG) BY MOUTH DAILY FOR 5 DAYS, THEN STOP. TAKE THIS MEDICATION WITH RAULITO SMOKING: FORMER SMOKER, NONE SINCE 2014 DISEASE SPECIFIC EDUCATION: OSTEOARTHRITIS PAIN MANAGEMENT HOME MEDICATIONS NEW PRESCRIPTIONS FOLLOW UP PLAN: DISCHARGE HOME TODAY RETURN TO SEE DR. RASCON IN HIS OFFICE ON 07/10/17 AT 10 A.M. RESUME YOUR HOME MEDICATIONS PER LIST PROVIDED BY THE NURSING STAFF NEW MEDICATIONS OXYCODONE 5 MG, TAKE ONE TABLET BY MOUTH DAILY NEEDED FOR BREAKTHROUGH PAINUNRELIEVED BY YOUR ULTRAM PREDNISONE 10 MG, TAKE 2 TABS (20 MG) BY MOUTH DAILY FOR 5 DAYS, THEN TAKE 1 TAB (10 MG) BY MOUTH DAILY FOR 5 DAYS, THEN STOP. TAKE THIS MEDICATION WITH FOOD. DIET HEALTHY HEART ACTIVITY GET PLENTY OF REST AT HOME. GRADUALLY INCREASE YOUR ACTIVITY LEVEL ACCORDING TO YOUR TOLERATION HOSPITAL COURSE: This is a 77 year old white female who presented to the emergency room with atypical type chest pain radiating to the right shoulder. She has a long history of severe COPD, oxygen dependant with polyarthritis. Most recently she has developed worsening arthritis of her right shoulder. Chest x-ray showed no acute process in the chest. X-ray of the shoulder revealed severe osteoarthritis. X-ray of the spine showed no compression fractures. She was just experiencing intractable pain. She was admitted to the floor and continued on her home medications where she takes Tramadol twice a day PRN 50mg. She was started on Toradol 30mg IV Q 8 hours as well as Decadron 1cc 4mg IM daily. It was thought the goal of this hospitalization was to try to get her pain under control so that she could better manage this at home. She had stated that previously she and I had had discussions about possibly narcotic therapy and she was very reluctant to start this. She said that Hydrocodone made her feel unwell. She agreed to try Percocet. We decided on making her Ultram scheduled twice a day and then her asking for the Percocet 5mg PO once a day if needed for breakthrough pain and her no longer receive Toradol. She was agreeable to this. About 36 hours with this pain regimen she felt that this had help significantly. She had also had reduction in inflammation of course from the Decadron. She will go home with his pain regimen. She is instructed to take her Tramadol 50mg twice daily and she is to use the Oxycodone 5mg once daily or even half a tablet as needed for break through pain daily. We will put her on a tapering dose of Steroids, Prednisone 20mg daily for 5 days and then 10mg daily for 5 days. We did discuss possible Pain Management and the patient is reluctant to try this. Again she is even reluctant to try Narcotic medications and Opioids. She is followed by Dr. Platt for her severe COPD. She has a history of DVT and PE so we continued her Coumadin of course while she was in the hospital. For two days her INR was above 3 so we held her Coumadin for two days and today it is down to 2.7 INR so we will restart the Coumadin when she goes home. A prescription was given for the Prednisone and the Percocet 5mg. Again we discussed Pain Management, risks associated with Opioid use. She tolerated this medication well and it did not make her increasingly drowsy. This morning we was up and about walking around the room trying to make her bed. Her pain had significantly improved. We will follow with her closely and see her next week in the office. TIME SPENT: More than 60 minutes. ANETA
== END 2017-07-03 10:15 | disposition home or self-care (01) | DRG 313 ==
LOC: ED 08:06 → MEDSURG B 10:48
PROVIDERS: ADMIT Internal Medicine; ATTEND Internal Medicine
DX: R07.89 Other chest pain (principal); Z68.1 Body mass index [BMI] 19.9 or less, adult; R07.81 Pleurodynia; M15.9 Polyosteoarthritis, unspecified; M50.30 Other cervical disc degeneration, unspecified cervical region; M85.88 Other specified disorders of bone density and structure, other site; J44.9 Chronic obstructive pulmonary disease, unspecified; R05 Cough; R09.3 Abnormal sputum; R06.02 Shortness of breath; R91.1 Solitary pulmonary nodule; K21.9 Gastro-esophageal reflux disease without esophagitis; D64.9 Anemia, unspecified; R73.9 Hyperglycemia, unspecified; M10.9 Gout, unspecified; I51.7 Cardiomegaly; M54.6 Pain in thoracic spine; Z86.711 Personal history of pulmonary embolism; Z79.01 Long term (current) use of anticoagulants; Z79.899 Other long term (current) drug therapy; Z99.81 Dependence on supplemental oxygen; Z87.891 Personal history of nicotine dependence
CPT/HCPCS: 36415; 80053; 81001; 82550; 82803; 84145; 84484; 85025; 85610; 85730; 87040; 87502; 93005; 93010; 94640; 96361; 96374; 99284

== ENCOUNTER 2017-08-29 08:40 | Outpatient (CLI) ==
--- NOTE | 2017-08-29 12:12 | CT ---
EXAM: CT chest without contrast. HISTORY: Chronic obstructive pulmonary disease. Pulmonary nodule follow-up. COMPARISON: 06/30/2017, 02/11/2017, 03/25/2016, 12/21/2014. TECHNIQUE: Multiple axial images of the chest were obtained without intravenous contrast. Images we re reformatted in the sagittal and coronal planes. FINDINGS: Calcified mediastinal and hilar lymph nodes are present. Heart size is normal. No perica rdial effusion identified. Atherosclerotic calcifications are present. Biapical scarring noted. Calcified granulomatous changes seen bilaterally. Severe emphysematous baljit nges are present. Perihilar right upper lobe nodule measures approximately 0.8 cm on axial images 27 and 28 which is stable along with other scattered linear opacities in both lungs. No new nodules ar e seen. No pleural effusion or pneumothorax identified. Limited images of the upper. Degenerative changes present in the spine. IMPRESSION: 1. No acute cardiopulmonary process. 2. Stable severe emphysema and areas of scarring
== END 2017-08-29 08:41 | disposition home or self-care (01) ==
LOC: RAD 08:40
PROVIDERS: ATTEND Internal Medicine Pulmonary Disease
DX: J44.9 Chronic obstructive pulmonary disease, unspecified (principal)

== ENCOUNTER 2018-05-11 10:35 | Inpatient (IN) ==
[2018-05-11] MEDS ORDERED: SOLU-CORTEF 250 MG IVP STA (11:07)
[2018-05-11 11:10] VITALS: BMI 17.2
[2018-05-11] MEDS ORDERED: OXYCODONE HCL 5 MG PO PRN (11:11)
[2018-05-11] MEDS ORDERED: VITAMIN K SUBCUT STA (11:22)
[2018-05-11] MEDS ORDERED: OXYCODONE PO PRN (11:38)
[2018-05-11] MEDS: ULTRAM PO PRN ×2 (11:44→21:01)
[2018-05-11] MEDS: XOPENEX 1.25 MG NEB SCH ×3 (11:46→23:50)
[2018-05-11] MEDS: COMBIVENT RESPIMAT INHAL SPRAY IH SCH ×3 (13:19→21:02)
[2018-05-11] MEDS ORDERED: XOPENEX 1.25 MG NEB SCH (14:00)
--- NOTE | 2018-05-11 14:30 | DI ---
EXAM: CHEST FRONTAL AND LATERAL VIEWS HISTORY: Acute bronchitis. COMPARISON: 05/06/2017 FINDINGS: Normal heart size. There is at least mild atherosclerotic disease. Significant hyperinfl ation. Diffuse lucency of the lung zones consistent with emphysema. There is irregular density in t he apices, greater on the right, similar to that previously seen which may be related to fibrosis. T his has been shown to be partially calcified on recent CT was considered to be scarring. No obvious acute infiltrates. No vascular congestion, pneumothorax or pleural fluid. IMPRESSION: 1. Relatively severe chronic obstructive pulmonary disease and scattered fibrosis. No definite acut e infiltrates.
[2018-05-11] MEDS ORDERED: COUMADIN PO SCH (17:00)
[2018-05-11] MEDS: SINGULAIR PO SCH (21:01)
[2018-05-11] MEDS: ATIVAN PO PRN (21:02)
[2018-05-11] MEDS: ADVAIR 250-50 DISKUS IH SCH (21:07)
[2018-05-12] MEDS: XOPENEX 1.25 MG NEB SCH ×4 (05:00→23:04)
[2018-05-12] MEDS: PROTONIX PO SCH (06:02)
[2018-05-12] MEDS ORDERED: VITAMIN K SUBCUT STA (08:24)
[2018-05-12] MEDS ORDERED: PREDNISONE PO SCH (09:00)
[2018-05-12] MEDS: PREDNISONE PO SCH (09:10)
[2018-05-12] MEDS: ADVAIR 250-50 DISKUS IH SCH ×2 (09:10→21:24)
[2018-05-12] MEDS: COMBIVENT RESPIMAT INHAL SPRAY IH SCH ×4 (09:11→21:24)
--- NOTE | 2018-05-12 09:36 | PCM.PROG ---
Attending Provider: ATTENDING PROVIDER: Dr. RAISA RASCON This patient is seen with Zuly Henry, Nurse Practitioner. DATE OF SERVICE: 05/12/18 SUBJECTIVE: This 77 year old WHITE/ F was hospitalized 05/11/18. The patient is lying in bed resting comfortably. She had some shoulder pain as usual through the night. She has pain medicine p.r.n. INR significantly elevated still at 8.48 down from 9.5. REVIEW OF SYSTEMS: CONSTITUTIONAL: No night sweats. No fatigue, malaise, lethargy. No fever or chills. HEENT: Eyes: No visual changes. No eye pain. No eye discharge. ENT: No runny nose. No epistaxis. No sinus pain. No odynophagia. No congestion. RESPIRATORY: No cough, no congestion. No hemoptysis. No shortness of breath. CARDIOVASCULAR: No angina symptoms. No CHF symptoms. No atypical chest pain for CAD. No palpitations. No orthopnea.. GASTROINTESTINAL: No abdominal pain. No nausea or vomiting. No diarrhea or constipation. No hematemesis. No hematochezia. GENITOURINARY: No urgency. No frequency. No dysuria. No hematuria. No obstructive symptoms. No discharge. No pain. No significant abnormal bleeding. MUSCULOSKELETAL: Right shoulder pain, back pain. NEUROLOGICAL: Awake, alert, oriented to time, place and person. No headache. No neck pain. No syncope. No seizures. No dizziness. PSYCHIATRIC: Not anxious. No depression. No suicidal thoughts. No homicidal thoughts. SKIN: No rash. No lesions. No wounds. ENDOCRINE: No unexplained weight loss. No weight gain. HEMATOLOGIC/LYMPHATIC: No anemia. No purpura. No petechiae. No prolonged or excessive bleeding. No palpable lymph nodes. PHYSICAL EXAMINATION: GENERAL: The patient is awake, alert and oriented, lying in bed in no distress. VITAL SIGNS: Temperature 98.2 F, Pulse 71, Respiratory Rate 20, BP 143/61, Pulse Ox 100% HEENT: Head normocephalic, atraumatic. Eyes: Extraocular muscles are intact. Pupils are equal, round and reactive to light and accommodation. Ears: No lesions. Nose appeared normal. Throat: No exudate or erythema. NECK: Supple. No JVD, no carotid bruit. No lymphadenopathy or thyromegaly. LUNGS: Diminished breath sounds. Clear to auscultation. Percussion note normal. Chest symmetrical. HEART: S1, S2, no S3. No murmurs. No cyanosis or clubbing. No ascites. Pulses: Dorsalis pedis and posterior tibial pulses +1 to +2 both sides. ABDOMEN: Soft. Non-tender. Bowel sounds active. No CVA tenderness. No mass felt. EXTREMITIES: No edema. Full range of motion of all extremities, equal. NEUROLOGIC: No focal deficit. Cranial nerves II through XII are grossly intact. No headache, no double vision or headache. SKIN: Not dry. Intact. Turgor-normal. LYMPHATIC: No palpable lymph nodes/no lymphedema. MUSCULOSKELETAL: Normal joints with no swelling. Muscle tone is normal. LAB REVIEW: 05/12/18 04:25 05/12/18 04:25 05/12/18 04:25: Sodium 140.2, Potassium 3.63, Chloride 99.4, Carbon Dioxide 31.5 H, Anion Gap 12.93, BUN 14.6, Creatinine 0.90, Estimated GFR (MDRD) 61.00, BUN/Creatinine Ratio 16.22, Glucose 100.7, Calcium 9.97, Total Bilirubin 0.31, AST 33.7, ALT 18.8, Alkaline Phosphatase 67.8, Total Protein 6.92, Albumin 4.11 , Globulin 2.81, Albumin/Globulin Ratio 1.46 05/12/18 04:25: PT 79.7 H D, INR 8.48 H* 05/12/18 04:25: WBC 7.20, RBC 4.16 L, Hgb 11.8 L, Hct 37.2, MCV 89.4, MCH 28.4, MCHC 31.7 L, RDW Coeff of Elie 14.6, Plt Count 191, Immature Gran % (Auto) 0.4, Neut % (Auto) 72.7, Lymph % (Auto) 16.7, Kershaw % (Auto) 9.3, Eos % (Auto) 0.3, Baso % (Auto) 0.6, Immature Gran # (Auto) 0.0, Neut # (Auto) 5.2, Lymph # (Auto ) 1.2, Kershaw # (Auto) 0.7, Eos # (Auto) 0.0, Baso # (Auto) 0.0 05/11/18 11:35: Sodium 134.6, Potassium 3.61, Chloride 97.3 L, Carbon Dioxide 33.2 H, Anion Gap 7.71, BUN 11.6, Creatinine 1.01, Estimated GFR (MDRD) 53.00, BUN/Creatinine Ratio 11.48, Glucose 78.9, Calcium 10.05, Total Bilirubin 0.45, AST 34.1, ALT 19.8, Alkaline Phosphatase 75.0, Total Protein 7.50, Albumin 4.48 , Globulin 3.02, Albumin/Globulin Ratio 1.48, TSH 2.360 05/11/18 11:35: PT 89.2 H, INR 9.53 H* 05/11/18 11:35: WBC 6.99, RBC 4.36, Hgb 12.6, Hct 38.8, MCV 89.0, MCH 28.9, MCHC 32.5, RDW Coeff of Elie 14.6, Plt Count 206, Immature Gran % (Auto) 0.1, Neut % (Auto) 66.0, Lymph % (Auto) 22.5, Kershaw % (Auto) 9.4, Eos % (Auto) 1.3, Baso % (Auto) 0.7, Immature Gran # (Auto) 0.0, Neut # (Auto) 4.6, Lymph # (Auto ) 1.6, Kershaw # (Auto) 0.7, Eos # (Auto) 0.1, Baso # (Auto) 0.1 05/11/18 11:35: Free T4 1.26 ASSESSMENT: 1. Hypercoagulation - elevated INR 2. Chronic bronchitis 3. COPD - oxygen dependent 4. Polyarthritis PLAN: 1. Vitamin K 1 mg subcu today. Plan and coordination of the patient's care discussed in the presence of Maternal Fetal Physician and nurse. CONDITION: Stable SCRIBED BY: ZO DANG Nurse Private Duty scribed while in presence of service performed by Dr. Rascon/Zuly Henry APRN on 05/12/18 ([id number])
[2018-05-12] MEDS: ULTRAM PO PRN (13:59)
[2018-05-12] MEDS: SINGULAIR PO SCH (21:24)
[2018-05-12] MEDS: ATIVAN PO PRN (21:32)
[2018-05-13] MEDS: XOPENEX 1.25 MG NEB SCH ×4 (04:42→23:30)
[2018-05-13] MEDS: PROTONIX PO SCH (06:19)
[2018-05-13] MEDS: COMBIVENT RESPIMAT INHAL SPRAY IH SCH ×4 (09:13→20:20)
[2018-05-13] MEDS: ADVAIR 250-50 DISKUS IH SCH ×2 (09:13→20:20)
[2018-05-13] MEDS: PREDNISONE PO SCH (09:13)
--- NOTE | 2018-05-13 09:15 | PCM.PROG ---
Attending Provider: ATTENDING PROVIDER: Dr. RAISA RASCON DATE OF SERVICE: 05/13/18 SUBJECTIVE: This 77 year old WHITE/ F was hospitalized 05/11/18 with elevated INR and hypercoagulopathy. The patient is noncompliant with diet and also in getting INR done. She is intelligent and understands the consequences. She has been instructed repeatedly on not taking an NSAIDS. Hemoglobin and hematocrit are stable. So far, 1 mg subcut Vitamin K twice. Results of INR today are pending. REVIEW OF SYSTEMS: CONSTITUTIONAL: No night sweats. No fatigue, malaise, lethargy. No fever or chills. HEENT: Eyes: No visual changes. No eye pain. No eye discharge. ENT: No runny nose. No epistaxis. No sinus pain. No odynophagia. No congestion. RESPIRATORY: Positive for mild tightness left lower chest. Mild cough. Shortness of breath as usual on exertion. No hemoptysis. CARDIOVASCULAR: No angina symptoms. No CHF symptoms. No atypical chest pain for CAD. No palpitations. No PND, no orthopnea. GASTROINTESTINAL: No abdominal pain. No nausea or vomiting. No diarrhea or constipation. No hematemesis. No hematochezia. GENITOURINARY: No urgency. No frequency. No dysuria. No hematuria. No obstructive symptoms. No discharge. No pain. No significant abnormal bleeding. MUSCULOSKELETAL: No musculoskeletal pain; no joint swelling. NEUROLOGICAL: Awake, alert, oriented to time, place and person. No headache. No neck pain. No syncope. No seizures. No dizziness. PSYCHIATRIC: Not anxious. No depression. No suicidal thoughts. No homicidal thoughts. SKIN: No rash. No lesions. No wounds. ENDOCRINE: No unexplained weight loss. No weight gain. HEMATOLOGIC/LYMPHATIC: No anemia. No purpura. No petechiae. No prolonged or excessive bleeding. No palpable lymph nodes. PHYSICAL EXAMINATION: GENERAL: The patient is awake, alert and oriented, lying in bed in no distress. VITAL SIGNS: Temperature 97.9 F, Pulse 75, Respiratory Rate 18, BP 116/71, Pulse Ox 99% HEENT: Head normocephalic, atraumatic. Eyes: Extraocular muscles are intact. Pupils are equal, round and reactive to light and accommodation. Ears: No lesions. Nose appeared normal. Throat: No exudate or erythema. NECK: Supple. No JVD, no carotid bruit. No lymphadenopathy or thyromegaly. LUNGS: Decreased breath sounds bilaterally as usual. Clear to auscultation. Percussion note normal. Chest symmetrical. HEART: S1, S2, no S3. No murmurs. No cyanosis or clubbing. No ascites. Pulses: Dorsalis pedis and posterior tibial pulses +1 to +2 both sides. ABDOMEN: Soft. Non-tender. Bowel sounds active. No CVA tenderness. No mass felt. EXTREMITIES: No edema. Full range of motion of all extremities, equal. NEUROLOGIC: No focal deficit. Cranial nerves II through XII are grossly intact. No headache, no double vision or headache. SKIN: Warm and dry. Intact. Turgor-normal. LYMPHATIC: No palpable lymph nodes/no lymphedema. MUSCULOSKELETAL: Normal joints with no swelling. Muscle tone is normal. LAB REVIEW: 05/13/18 06:40 05/13/18 06:40 05/13/18 06:40: Sodium 142.1, Potassium 4.02, Chloride 101.4, Carbon Dioxide 31.0 H, Anion Gap 13.72, BUN 17.9 H, Creatinine 0.96, Estimated GFR (MDRD) 57.00 , BUN/Creatinine Ratio 18.64, Glucose 81.7, Calcium 9.90, Total Bilirubin 0.43, AST 31.0, ALT 17.8, Alkaline Phosphatase 72.9, Total Protein 6.84, Albumin 4.02 , Globulin 2.82, Albumin/Globulin Ratio 1.42 05/13/18 06:40: WBC 7.37, RBC 4.28, Hgb 12.2, Hct 38.8, MCV 90.7, MCH 28.5, MCHC 31.4 L, RDW Coeff of Elie 14.8, Plt Count 225, Immature Gran % (Auto) 0.1, Neut % (Auto) 59.1, Lymph % (Auto) 29.9, Reagan % (Auto) 8.7, Eos % (Auto) 1.4, Baso % (Auto) 0.8, Immature Gran # (Auto) 0.0, Neut # (Auto) 4.4, Lymph # (Auto ) 2.2, Reagan # (Auto) 0.6, Eos # (Auto) 0.1, Baso # (Auto) 0.1 ASSESSMENT: 1. Hypercoagulopathy with increased INR with noncompliance. 2. Severe chronic lung disease on home oxygen. PLAN: 1. Monitor CBC, CMP 2. Continue treatment for chronic lung disease with chronic bronchitis Plan and coordination of the patient's care discussed in the presence of Instrument Mechanics Supervisor and nurse. CONDITION: Stable SCRIBED BY: ZO DANG Machinery Rigger scribed while in presence of service performed by Dr. RAISA RASCON on 05/13/18 ([id number])
--- NOTE | 2018-05-13 14:43 | PN ---
DATE OF SERVICE: 05/12/18 SUBJECTIVE: The patient was seen and examined with the Nurse Practitioner. Bronchitis symptoms seems to be better. INR looks better. No evidence of bleeding. Hgb and hct is stable. Education about INR and Coumadin all discussed. The patient advised regular follow up for INR. The patient is noncompliant for INR, she is intelligent. TIME SPENT: More than 30 minutes. Plan and coordination of the patient's care discussed in the presence of nurse. ANETA
[2018-05-13] MEDS: ULTRAM PO PRN (15:08)
[2018-05-13] MEDS ORDERED: COUMADIN PO SCH (17:00)
[2018-05-13] MEDS: SINGULAIR PO SCH (20:20)
[2018-05-14] MEDS: XOPENEX 1.25 MG NEB SCH (04:30)
[2018-05-14] MEDS: PROTONIX PO SCH (06:11)
[2018-05-14 06:35] VITALS: BP 118/63; TEMP 97.5
[2018-05-14] MEDS: PREDNISONE PO SCH (08:37)
[2018-05-14] MEDS: ADVAIR 250-50 DISKUS IH SCH (08:38)
[2018-05-14] MEDS: COMBIVENT RESPIMAT INHAL SPRAY IH SCH (08:38)
--- NOTE | 2018-05-14 09:28 | PCM.PROG ---
Attending Provider: ATTENDING PROVIDER: Dr. RAISA RASCON DATE OF SERVICE: 05/14/18 SUBJECTIVE: This 77 year old WHITE/ F was hospitalized 05/11/18 with coagulopathy. The patient's INR is acceptable, yesterday 1.9. The patient is going to be on 5 mg of Coumadin. REVIEW OF SYSTEMS: CONSTITUTIONAL: No night sweats. No fatigue, malaise, lethargy. No fever or chills. HEENT: Eyes: No visual changes. No eye pain. No eye discharge. ENT: No runny nose. No epistaxis. No sinus pain. No odynophagia. No congestion. RESPIRATORY: No cough, no congestion. No hemoptysis. No shortness of breath. CARDIOVASCULAR: No angina symptoms. No CHF symptoms. No atypical chest pain for CAD. No palpitations. No orthopnea.. GASTROINTESTINAL: No abdominal pain. No nausea or vomiting. No diarrhea or constipation. No hematemesis. No hematochezia. GENITOURINARY: No urgency. No frequency. No dysuria. No hematuria. No obstructive symptoms. No discharge. No pain. No significant abnormal bleeding. MUSCULOSKELETAL: No musculoskeletal pain; no joint swelling. NEUROLOGICAL: Awake, alert, oriented to time, place and person. No headache. No neck pain. No syncope. No seizures. No dizziness. PSYCHIATRIC: Not anxious. No depression. No suicidal thoughts. No homicidal thoughts. SKIN: No rash. No lesions. No wounds. ENDOCRINE: No unexplained weight loss. No weight gain. HEMATOLOGIC/LYMPHATIC: No anemia. No purpura. No petechiae. No prolonged or excessive bleeding. No palpable lymph nodes. PHYSICAL EXAMINATION: GENERAL: The patient is awake, alert and oriented, sitting up in bed in no distress. VITAL SIGNS: Temperature 97.5 F, Pulse 75, Respiratory Rate 18, BP 118/63, Pulse Ox 99% HEENT: Head normocephalic, atraumatic. Eyes: Extraocular muscles are intact. Pupils are equal, round and reactive to light and accommodation. Ears: No lesions. Nose appeared normal. Throat: No exudate or erythema. NECK: Supple. No JVD, no carotid bruit. No lymphadenopathy or thyromegaly. LUNGS: Decreased breath sounds. Clear to auscultation. Percussion note normal. Chest symmetrical. HEART: S1, S2, no S3. No murmurs. No cyanosis or clubbing. No ascites. Pulses: Dorsalis pedis and posterior tibial pulses +1 to +2 both sides. ABDOMEN: Soft. Non-tender. Bowel sounds active. No CVA tenderness. No mass felt. EXTREMITIES: No edema. Full range of motion of all extremities, equal. NEUROLOGIC: No focal deficit. Cranial nerves II through XII are grossly intact. No headache, no double vision or headache. SKIN: Warm and dry. Intact. Turgor-normal. LYMPHATIC: No palpable lymph nodes/no lymphedema. MUSCULOSKELETAL: Normal joints with no swelling. Muscle tone is normal. LAB REVIEW: 05/14/18 06:00 05/14/18 06:00 05/14/18 06:00: Sodium 139.3, Potassium 4.04, Chloride 102.5, Carbon Dioxide 31.2 H, Anion Gap 9.64, BUN 20.1 H, Creatinine 0.98, Estimated GFR (MDRD) 55.00 , BUN/Creatinine Ratio 20.51, Glucose 84.2, Calcium 9.63, Total Bilirubin 0.33, AST 27.0, ALT 15.9, Alkaline Phosphatase 71.2, Total Protein 6.19 L, Albumin 3.54, Globulin 2.65, Albumin/Globulin Ratio 1.33 05/14/18 06:00: WBC 6.40, RBC 3.97 L, Hgb 11.4 L, Hct 36.5 L, MCV 91.9, MCH 28.7 , MCHC 31.2 L, RDW Coeff of Elie 15.5 H, Plt Count 202, Neutrophils % (Manual) 60.0, Lymphocytes % (Manual) 32.0, Monocytes % (Manual) 6.0, Eosinophils % ( Manual) 2.0, Anisocytosis Not present 05/13/18 06:40: PT 19.2 H D, INR 1.96 D ASSESSMENT: 1. No evidence of bleeding, hemoglobin and hematocrit stable. 2. Educated the patient about INR. 3. Chronic bronchitis under control. PLAN: 1. Discharge home. 2. Continue same medications. 3. Coumadin 5 mg. 4. Will see the patient in the office on Friday. Plan and coordination of the patient's care discussed in the presence of Buckle Wire Inserter and nurse. EDUCATION: The patient is on steroids. Discussed side effects of steroids to include avascular necrosis of the hip, osteoporosis, diabetes mellitus, et cetera. The patient needs steroids. She is advised pulmonary rehab which she has declined. CONDITION: STABLE SCRIBED BY: ZO DANG Cigar Inspector scribed while in presence of service performed by Dr. RAISA RASCON on 05/14/18 ([id number])
--- NOTE | 2018-05-14 09:42 | CM.DICTOOL ---
ADMISSION: 05/11/18 10:35 DISCHARGE: 05/14/18 FINAL DIAGNOSIS HYPERCOAGULATION WITH ELEVATED INR WITH NON-COMPLIANCE ACUTE ON CHRONIC BRONCHITIS SEVERE CHRONIC LUNG DISEASE WITH HOME OXYGEN THERAPY HISTORY OF: CHRONIC BRONCHITIS RIGHT SHOULDER OSTEOARTHRITIS CERVICAL OA/DJD SEVERE COPD WITH PREDNISONE THERAPY IN USE CERVICAL RADICULOPATHY OSTEOPENIA LUNG NODULE CAD DVT/PE GOUT GERD POLYARTHRITIS S/P HYSTERECTOMY - DATE UNKNOWN LAST VITALS Temp Pulse Resp BP Pulse Ox 97.5 F L 75 18 118/63 99 05/14/18 06:00 05/14/18 06:00 05/14/18 06:00 05/14/18 06:00 05/14/18 06:00 TAKE THESE MEDICATIONS AT HOME Albuterol/Ipratropium (Combivent Respimat Inhal Nada) 1 spray IH QID [facility] Last Admin: 05/14/18 08:38 Dose: 1 spray Lorazepam (Ativan) 0.5-1 mg PO BID PRN PRN Reason: Anxiety Last Admin: 05/12/18 21:32 Dose: 1 mg Montelukast Sodium (Singulair) 10 mg PO BEDTIME [facility] Last Admin: 05/13/18 20:20 Dose: 10 mg Oxycodone HCl (Oxycodone) 5 mg PO DAILY PRN PRN Reason: Pain Last Admin: 05/12/18 21:31 Dose: 5 mg Pantoprazole Sodium (Protonix) 40 mg PO QDAC [facility] Last Admin: 05/14/18 06:11 Dose: 40 mg Prednisone (Prednisone) 5 mg PO DAILYWM [facility] Last Admin: 05/14/18 08:37 Dose: 5 mg Fluticasone/Salmeterol (Advair 250-50 Diskus) 1 puff IH BID [facility] Last Admin: 05/14/18 08:38 Dose: 1 puff Tramadol HCl (Ultram) 50 mg PO BID PRN PRN Reason: Pain Last Admin: 05/13/18 15:08 Dose: 50 mg Warfarin Sodium (Coumadin) 5 mg PO QPM [facility] Last Admin: 05/13/18 16:27 Dose: 5 mg ALLERGIES ciprofloxacin [From Cipro] Adverse Reaction (Verified 06/30/17 08:16) hydrocodone Adverse Reaction (Verified 06/30/17 08:16) Abdominal Pain Discontinued Medications Hydrocortisone Sodium Succinate (Solu-Cortef 250 Mg) 125 mg IVP ONCE STA Stop: 05/11/18 11:08 Last Admin: 05/11/18 11:44 Dose: 125 mg Levalbuterol HCl (Xopenex 1.25 Mg) 1 vial [facility] RTQID [facility]LV[facility] Phytonadione (Vitamin K) 1 mg SUBCUT ONCE STA Stop: 05/11/18 11:23 Last Admin: 05/11/18 11:44 Dose: 1 mg Phytonadione (Vitamin K) 1 mg SUBCUT ONCE STA Stop: 05/12/18 08:25 Last Admin: 05/12/18 09:37 Dose: 1 mg NEW PRESCRIPTIONS: NONE SMOKING: FORMER SMOKER. QUIT 3 OR 4 YEARS AGO. DISEASE SPECIFIC EDUCATION: COUMADIN THERAPY IMPORTANCE OF MONITORING PT/INR COPD PREDNISONE THERAPY DIET LAB REVIEW: 05/14/18 06:00 05/14/18 06:00 05/14/18 07:30: PT 15.5 H, INR 1.57 05/14/18 06:00: Sodium 139.3, Potassium 4.04, Chloride 102.5, Carbon Dioxide 31.2 H, Anion Gap 9.64, BUN 20.1 H, Creatinine 0.98, Estimated GFR (MDRD) 55.00 , BUN/Creatinine Ratio 20.51, Glucose 84.2, Calcium 9.63, Total Bilirubin 0.33, AST 27.0, ALT 15.9, Alkaline Phosphatase 71.2, Total Protein 6.19 L, Albumin 3.54, Globulin 2.65, Albumin/Globulin Ratio 1.33 05/14/18 06:00: WBC 6.40, RBC 3.97 L, Hgb 11.4 L, Hct 36.5 L, MCV 91.9, MCH 28.7 , MCHC 31.2 L, RDW Coeff of Elie 15.5 H, Plt Count 202, Neutrophils % (Manual) 60.0, Lymphocytes % (Manual) 32.0, Monocytes % (Manual) 6.0, Eosinophils % ( Manual) 2.0, Anisocytosis Not present PLAN: DISCHARGE TO HOME TODAY 05/14/18. CONTINUE HOME MEDICATIONS PER NURSING SHEETS. NO NEW MEDICATIONS. DIET TOLERATED. ACTIVITY GRADUALLY RESUME ACTIVITY. FOLLOW UP WITH DR. RASCON ON FridayApril AT 11AM. IF UNABLE TO KEEP APPOINTMENT, PLEASE CALL TO RESCHEDULE. [phone] COME TO THE OFFICE EVERY 3 TO 4 WEEKS TO HAVE PT/INR CHECKED. PATIENT IS A DO NOT RESUSCITATE. SITTING UP IN BED. ALERT AND ORIENTED X 4. DAUGHTER AT BEDSIDE. DR. RASCON INTO SEE PATIENT. PATIENT STATES FEELING BETTER AND READY TO GO HOME. DR. RASCON INTO SEE PATIENT. PLAN OF CARE DISCUSSED INCLUDING DISCHARGE, NO CHANGE IN MEDICATIONS, FOLLOW UP APPOINTMENT AND NEED TO HAVE PT/INR CHECKED EVERY 3 TO 4 WEEKS. PATIENT VERBALIZES UNDERSTANDING. APPETITE FOR PAST 24 HOURS: 100% EACH MEAL. VITAL SIGNS ARE STABLE. HAS BEEN AFEBRILE. POX 99% ON O2 AT 2L/C. HEART TONES ARE REGULAR WITH TELEMETRY REVEALING SINUS RHYTHM. NO C/O PAIN OR DISCOMFORT. LUNGS ARE CLEAR WITH DIMINISHED BREATH SOUNDS. HAS NON-PRODUCTIVE COUGH. HAS DYSPNEA WITH AND WITHOUT ACTIVITY. IS UNABLE TO LIE FLAT. ABDOMEN IS SOFT, NON-TENDER WITH BOWEL SOUNDS POSITIVE IN ALL 4 QUADS. LAST BM 05/13/18. PEDAL PULSES POSITIVE WITHOUT EDEMA. HAS SALINE LOCK IN LEFT FOREARM SITE IS CLEAR. IS INDEPENDENT WITH ACTIVITIES OF DAILY LIVING. SKIN WARM, DRY AND INTACT WITH SCATTERED BRUISING TO BILATERAL UPPER EXTREMITIES. NO ACTIVE BLEEDING NOTED. DR. RAISA RASCON MD Blayne CHEW APRN
--- NOTE | 2018-05-15 10:06 | DS ---
DATE OF SERVICE: 05/14/18 FINAL DIAGNOSIS: 1. Hypercoagulation with elevated INR with non-compliance 2. Acute on chronic bronchitis 3. Severe chronic lung disease with home oxygen therapy 4. History of chronic bronchitis 5. Right shoulder osteoarthritis 6. Cervical OA/DJD 7. Severe COPD with Prednisone therapy in use 8. Cervical radiculopathy 9. Osteopenia 10.Lung nodule 11.CAD 12.DVT/PE 13.GOUT 14.GERD 15.Polyarthritis 16.Status post hysterectomy-date unknown LAST VITALS: Temperature 97.5, pulse 75, respiratory rate 18, blood pressure 118/63 and pulse ox 99%. DISCHARGE INSTRUCTIONS: Discharge to home today. Continue home medications per nursing sheets. Followup with Dr. Yo on FridayMay 18 at 11am. Come to office every 3 to 4 weeks to have PT/INR checked. The patient is a do not resuscitate. MEDICATIONS AT DISCHARGE: Combivent 1 spray IH four times ad ay Ativan 0.5-1mg PO twice a day PRN Singulair 10mg Po bedtime Oxycodone 5mg PO daily PRN Protonix 40mg PO QDAC Prednisone 5mg Po daily Advair 250-50 one puff IH twice a day Ultram 50mg PO twice a day PRN Coumadin 5mg PO QPM ALLERGIES: Ciprofloxacin Hydrocodone DISCONTINUED MEDICATIONS: Solu-Cortef 125mg IVP once Xopenex 1.25 NEB RT four times a day Vitamin K 1mg SUBCUT once Vitamin K 1mg SUBCUT once NEW PRESCRIPTIONS: None DIET INSTRUCTIONS: As tolerated ACTIVITY: Gradually resume activity. SMOKING: Former smoker. Quit three or four years ago DISEASE SPECIFIC EDUCATION: Coumadin therapy Importance of monitoring PT/INR COPD Prednisone therapy Diet HOSPITAL COURSE: The patient was admitted with increased INR, her INR was reduced to more than 8. The patient was hospitalized. She did not have acute GI bleed. She required two doses of SUBCUT 1mg Vitamin K. Her INR at the time of discharge was 1.5. She was advised to continue 5mg Coumadin daily. She used to be 6. She is noncompliant about INR and her diet. She has refused to go any other medications like Novel blood thinners like Pradaxa, Eliquis etc. She is to be seen on Friday, three days after her discharge. She was also treated in the hospital for her bronchitis with steroids and NEBS. CONDITION: Stable. TIME SPENT: More than 60 minutes. ANETA
--- NOTE | 2018-05-15 10:40 | PN ---
05/11/18: Level 5 05/12/18: Intermediate 05/13/18: Intermediate 05/14/18: D as in discharge MTDD
--- NOTE | 2018-05-19 10:44 | HP ---
DATE OF SERVICE: 05/11/18 HISTORY OF PRESENT ILLNESS: This 77-year-old white/ female presented for regular followup. She had not had INR done for 8 hourly. Today INR greater than 8.0. Complaining of mild cough/congestion - clear sputum. PAST MEDICAL HISTORY: Cervical osteoarthritis/DJD cervical radiculopathy COPD Osteopenia FANNIE GERD Lung nodule DVT/PE Chronic bronchitis Polyarthritis 02 2.5L/NC MENSTRUAL HISTORY: Hysterectomy PAST SURGICAL HISTORY: Hysterectomy REVIEW OF SYSTEMS: CONSTITUTIONAL: No fever, no fatigue. HEENT: No sinus drainage, no sore throat. RESPIRATORY: Positive for cough, mild times two weeks with clear sputum. CARDIOVASCULAR: Positive for shortness of breath, mild. No atypical chest pain for coronary artery disease. No angina, CHF symptoms. No palpitations. GASTROINTESTINAL: No melena or abdominal pain. No GERD. GENITOURINARY: No hematuria, no polyuria. GILL BOX FIXER: No blackout, no dizziness, no headache, no double vision. MUSCULOSKELETAL: Osteoarthritis pain. ENDOCRINE: No weight loss, no weight gain. SKIN: Not dry, no rash. PSYCHIATRIC: Not anxious, no depression, no suicidal thoughts, no homicidal thoughts. SOCIAL HISTORY: The patient is , has three children. No illicit drug use. No alcohol use. Smoker- 1-2 packs per day quitting 01/2014. FAMILY HISTORY: Father . Mother . One brother. One sister. MEDICATIONS: (HOME) Tramadol two tablets p.o. one time per day as needed Lorazepam 0.5 mg 1 to 2 tabs at h.s. p.r.n. p.o. one time per day Oxycodone 5 mg one p.o. one time per day p.r.n. Coumadin - hold Atrovent 0.03% spray two sprays each nostril intranasally two times per day Combivent four times daily INH Advair one puff INH two times per day p.r.n. Singulair 10 mg one tablet p.o. once daily in the evening Pantoprazole 40 mg p.o. once daily Calcium 1200 mg one time per day Cholecalciferol one time per day Oxygen 2 1/2 L p.r.n. ALLERGIES: CIPRO, LORTAB PHYSICAL EXAMINATION: V/S: Pulse 90, BP 110/60, 02 sat 96%. Weight 110.2 lbs. Height 5'7". BMI 17.2. GENERAL APPEARANCE: Oriented times three. HEENT: Normal. NECK: No JVP, no bruits. RESPIRATORY: Lungs are clear. Decreased breath sounds. CARDIOVASCULAR: S1, S2, no S3, no murmurs. No cyanosis, clubbing. No ascites. GI/ABDOMEN: No tenderness. Bowel sounds are active. EXTREMITIES: No edema, pulses +1, equal. GILL BOX FIXER: Deep tendon reflexes, sensory, motor and gait all normal. RECTAL/PELVIC: Colonoscopy refused. Pelvic advised yearly. Refused mammogram. ASSESSMENT: 1. COAGULOPATHY WITH HIGH INR 2. ACUTE BRONCHITIS - ALLERGIC 3. RIGHT SHOULDER OSTEOARTHRITIS - INJECTIONS ORTHOPAEDIC Q.3MONTHS 4. CERVICAL OSTEOARTHRITIS/DJD 5. SEVERE COPD ON PREDNISONE 6. CERVICAL RADICULOPATHY 7. OSTEOPENIA 8. LUNG NODULE, DR. OLIVAS 9. FANNIE 10. DVT/PE 11. HISTORY OF GOUT 12. GERD 13. CHRONIC BRONCHITIS 14. POLYARTHRITIS PLAN: 1. Admit 2. Regular diet 3. STAT INR/telemetry 4. 1 mg p.o. Vitamin K now 5. Daily INR 6. CBC, CMP today and daily a.m. 7. Hold Coumadin 8. Continue all medications - no NSAIDs 9. EKG and x-ray of chest today. 10. T4, TSH 11. Nebs - Xopenex q.i.d. 125 mg Solu-Cortef times one 12. Oxygen 1 to 2L/cannula/min TIME SPENT: More than 70 minutes. MTDD
== END 2018-05-14 11:35 | disposition home or self-care (01) | DRG 948 ==
LOC: MEDSURG B 10:35
PROVIDERS: ADMIT Internal Medicine; ATTEND Internal Medicine
DX: R79.1 Abnormal coagulation profile (principal); D68.9 Coagulation defect, unspecified; D68.59 Other primary thrombophilia; Z91.19 Patient's noncompliance with other medical treatment and regimen; Z79.01 Long term (current) use of anticoagulants
CPT/HCPCS: 36415; 80053; 84439; 84443; 85007; 85025; 85610; 93005; 93010; 94640; 99223; 99232; 99239

== ENCOUNTER 2018-06-15 08:52 | Outpatient (CLI) | END 2018-06-15 08:53 | disposition home or self-care (01) | LOC: CAR 08:52 | PROVIDERS: ATTEND Internal Medicine | DX: R06.02 Shortness of breath (principal); J44.9 Chronic obstructive pulmonary disease, unspecified | CPT/HCPCS: 82803 ==

== ENCOUNTER 2018-06-22 06:31 | Day surgery (SDC) ==
[2018-06-22] MEDS ORDERED: LIDOCAINE HCL 1% SDV INJ PRN (06:55)
[2018-06-22] MEDS ORDERED: BETADINE OPTH PREP OP ONE (06:55)
[2018-06-22] MEDS: AK-DILATE 10% OPTH SOL OP PRN ×3 (07:30→07:40)
[2018-06-22] MEDS: OCUFEN 0.03% OPTH SOL OP PRN ×3 (07:30→08:00)
[2018-06-22] MEDS: CYCLOGYL 2% OPTH OP PRN ×3 (07:30→07:40)
[2018-06-22] MEDS: TETRACAINE 0.5% UNIT-DOSE OP PRN ×5 (07:30→09:29)
[2018-06-22] MEDS ORDERED: DIAMOX PO STA ×2 (07:49→08:59)
[2018-06-22] MEDS ORDERED: LIDOCAINE 1% 20 ML MDV ID STA (07:49)
[2018-06-22 07:58] VITALS: BP 164/67; TEMP 98.6
[2018-06-22] MEDS ORDERED: VERSED ONE (09:20)
[2018-06-22] MEDS ORDERED: BSS WITH EPINEPHRINE OP ONE (09:42)
[2018-06-22] MEDS ORDERED: DIAMOX ONE (11:10)
--- NOTE | 2018-06-22 13:24 | OP ---
PREOPERATIVE DIAGNOSIS: 1. ADVANCED NUCLEAR SCLEROTIC CATARACT RIGHT EYE. 2. PSEUDOEXFOLIATION. 3. LOOSE EPITHELIUM. POSTOPERATIVE DIAGNOSIS: SAME. OPERATION PHACOEMULSIFICATION ASPIRATION OF CATARACT RIGHT EYE. PLACEMENT OF POSTERIOR CHAMBER LENS. PHACO TIME 1:22.9 SECONDS AT 11.0% POWER. LENS MODEL MELISSA [id number]. DIOPTER +24.0D. TECHNIQUE: CLEAR CORNEA. ANESTHESIA: TOPICAL ANESTHESIA W/ANESTHESIA MONITORING. OPERATIVE REPORT: Topical anesthesia consisting of Tetracaine was applied to the cornea and Xylocaine Methyl Paraben free of MFP was injected intracamerally into the anterior chamber. The patient was then brought into the operating room , prepped and draped in the usual ophthalmic manner. A lid speculum was placed and the operating microscope was used. A paracentesis was made at the 3 o' clock position. A clear corneal incision was made just out to the limbus. The anterior chamber was entered just inside the clear cornea. Viscoelastic was injected into the anterior chamber. A capsulotomy was performed with a bent # 27 gauge needle. Phacoemulsification was then performed in the posterior chamber. After completion of the phacoemulsification, residual cortical material was aspirated with the irrigation-aspiration system. The posterior capsule was polished. Viscoelastic was injected into the anterior and posterior chambers to inflate the capsular bag. Lens were placed via an Unfolder system and stabilized in the bag. Viscoelastic was removed from the anterior chamber. The wound was checked for any leakage. The four sponges were removed from the fornix. Topical antibiotic steroid and nonsteroidal drops were also applied to the cornea. A Diaz shield was applied. The patient left the operating room in good condition without any complications. INTRAOPERATIVE MEDICATIONS: Xylocaine Methyl Paraben Free MPF MTDD
== END 2018-06-22 11:15 | disposition home or self-care (01) ==
LOC: SURG 06:31
PROVIDERS: ATTEND Ophthalmology
DX: H25.13 Age-related nuclear cataract, bilateral (principal); H40.1131 Primary open-angle glaucoma, bilateral, mild stage

== ENCOUNTER 2018-07-27 06:41 | Day surgery (SDC) ==
[2018-07-27 08:19] VITALS: TEMP 98
[2018-07-27] MEDS ORDERED: AK-DILATE 10% OPTH SOL OP PRN (08:20)
[2018-07-27] MEDS ORDERED: OCUFEN 0.03% OPTH SOL OP PRN (08:20)
[2018-07-27] MEDS ORDERED: TETRACAINE 0.5% UNIT-DOSE OP PRN ×2 (08:20→11:14)
[2018-07-27] MEDS ORDERED: DIAMOX PO STA (08:20)
[2018-07-27] MEDS ORDERED: CYCLOGYL 2% OPTH OP PRN (08:20)
[2018-07-27] MEDS ORDERED: VERSED ONE (08:45)
[2018-07-27] MEDS ORDERED: SUBLIMAZE ONE (08:45)
[2018-07-27] MEDS ORDERED: DIAMOX ONE (09:55)
[2018-07-27] MEDS ORDERED: BETADINE OPTH PREP OP ONE (11:10)
[2018-07-27] MEDS ORDERED: PRED FORTE 1% OP PRN (11:14)
[2018-07-27] MEDS ORDERED: TIMOPTIC 0.5% OPTH OP PRN (11:14)
[2018-07-27] MEDS ORDERED: LIDOCAINE HCL 1% SDV INJ PRN (11:14)
[2018-07-27] MEDS ORDERED: BSS WITH EPINEPHRINE OP ONE (11:14)
[2018-07-27 11:30] VITALS: BP 132/66
--- NOTE | 2018-07-28 09:39 | OP ---
PREOPERATIVE DIAGNOSIS: 1. ADVANCED NUCLEAR CATARACT AND CORTICAL CATARACT LEFT EYE 2. PSEUDO EXFOLIATION WITH NO LENS SUBLUXATION POSTOPERATIVE DIAGNOSIS: SAME. OPERATION PHACOEMULSIFICATION ASPIRATION OF CATARACT LEFT EYE. PLACEMENT OF POSTERIOR CHAMBER LENS. PHACO TIME 1:13.2 SECONDS AT 10.0% POWER. LENS MODEL MELISSA [id number]. DIOPTER +24.0D. THE PATIENT DID HAVE A SMALL CORNEAL ABRASION TEMPORARILY SO THE EYE WAS CLOSED AND PATCHED AT THE END. NO OTHER COMPLICATIONS. TECHNIQUE: CLEAR CORNEA. ANESTHESIA: TOPICAL ANESTHESIA W/ANESTHESIA MONITORING. OPERATIVE REPORT: Topical anesthesia consisting of Tetracaine was applied to the cornea and Xylocaine Methyl Paraben free of MFP was injected intracamerally into the anterior chamber. The patient was then brought into the operating room , prepped and draped in the usual ophthalmic manner. A lid speculum was placed and the operating microscope was used. A paracentesis was made at the 3 o' clock position. A clear corneal incision was made just out to the limbus. The anterior chamber was entered just inside the clear cornea. Viscoelastic was injected into the anterior chamber. A capsulotomy was performed with a bent # 27 gauge needle. Phacoemulsification was then performed in the posterior chamber. After completion of the phacoemulsification, residual cortical material was aspirated with the irrigation-aspiration system. The posterior capsule was polished. Viscoelastic was injected into the anterior and posterior chambers to inflate the capsular bag. Lens were placed via an Unfolder system and stabilized in the bag. Viscoelastic was removed from the anterior chamber. The wound was checked for any leakage. The four sponges were removed from the fornix. Topical antibiotic steroid and nonsteroidal drops were also applied to the cornea. A Diaz shield was applied. The patient left the operating room in good condition without any complications. INTRAOPERATIVE MEDICATIONS: Xylocaine Methyl Paraben Free MPF MTDD
== END 2018-07-27 10:00 | disposition home or self-care (01) ==
LOC: SURG 06:41
PROVIDERS: ATTEND Ophthalmology
DX: H25.13 Age-related nuclear cataract, bilateral (principal); H40.1131 Primary open-angle glaucoma, bilateral, mild stage

== ENCOUNTER 2018-09-30 09:45 | Outpatient (CLI) ==
[2018-09-30 09:58] VITALS: BP 132/75; TEMP 98
[2018-09-30] MEDS ORDERED: PROLIA SUBCUT STA (09:58)
== END 2018-09-30 09:46 | disposition home or self-care (01) ==
LOC: OPMED 09:45
PROVIDERS: ATTEND Internal Medicine
DX: M81.0 Age-related osteoporosis without current pathological fracture (principal)
CPT/HCPCS: 96372

== ENCOUNTER 2019-03-29 11:10 | Inpatient (IN) ==
[2019-03-29] MEDS ORDERED: VISTARIL INJ IM PRN (11:40)
[2019-03-29] MEDS ORDERED: TYLENOL PO PRN (11:40)
[2019-03-29] MEDS ORDERED: NITROSTAT SL PRN (11:40)
[2019-03-29] MEDS ORDERED: ATROPINE SULFATE PFS IVP PRN (11:40)
[2019-03-29 12:05] VITALS: BMI 16.3
[2019-03-29] MEDS ORDERED: ROCEPHIN 1 GM/50 ML D5W 1 GM/50 ML BAG IV SCH (12:30)
[2019-03-29] MEDS: SODIUM CHLORIDE 1,000 ML IV SCH (13:17)
[2019-03-29] MEDS: ZITHROMAX PO SCH (13:25)
--- NOTE | 2019-03-29 15:01 | DI ---
EXAM: Chest two views HISTORY: Shortness of breath FINDINGS: Compared to 05/11/2018 radiography and 08/29/2017 CT. Heart size is within normal limits. There is at least mild atherosclerotic disease. There is diffuse, chronic appearing interstitial a ccentuation. Lungs are hyperinflated and there is relative lucency of the lung zones consistent with emphysema. There is biapical irregular pleuroparenchymal thickening which may be related to scarrin g. The scattered nodules are seen in the lungs some which are calcified granulomas and others indete rminate. One nodule in the mid right lung may be slightly larger than seen previously currently at 7 .4 mm. No consolidated pneumonia is obvious. There is no vascular congestion, pleural fluid or pneum othorax. IMPRESSION: 1. Chronic obstructive pulmonary disease and scattered fibrosis. Scattered nodules some which are i ndeterminate. Biapical densities are likely related to scarring. Consider follow-up periodic radiog natalie or CT to clarify and / or assure stability. 2. No definite consolidated pneumonia.
[2019-03-29] MEDS: SOLU-CORTEF 250 MG IVP SCH ×2 (15:16→20:38)
[2019-03-29] MEDS: PULMICORT 1 MG/2 ML NEB SCH (17:57)
[2019-03-29] MEDS: DUONEB NEB SCH ×2 (17:58→23:25)
[2019-03-29] MEDS: ATIVAN PO PRN (18:34)
[2019-03-29] MEDS: SINGULAIR PO SCH (20:37)
[2019-03-29] MEDS: ULTRAM PO PRN (20:42)
[2019-03-29] MEDS ORDERED: CALCIUM CARBONATE 600 MG PO SCH (21:00)
[2019-03-30] MEDS: SODIUM CHLORIDE 1,000 ML IV SCH (01:48)
[2019-03-30] MEDS: SOLU-CORTEF 250 MG IVP SCH ×3 (05:05→20:59)
[2019-03-30] MEDS: PULMICORT 1 MG/2 ML NEB SCH ×2 (05:20→17:48)
[2019-03-30] MEDS: DUONEB NEB SCH ×4 (05:20→23:27)
[2019-03-30] MEDS: PROTONIX PO SCH (05:42)
--- NOTE | 2019-03-30 08:49 | PCM.PROG ---
Attending Provider: ATTENDING PROVIDER: Dr. RAISA RASCON This patient is seen with Zuly Henry, Nurse Practitioner. DATE OF SERVICE: 03/30/19 SUBJECTIVE: This 78 year old /WHITE F was hospitalized 03/29/19. The patient is resting comfortably. She didn't sleep much, coughing through the night. Low grade fever yesterday but none through the night. Appears improved slightly since admission. REVIEW OF SYSTEMS: CONSTITUTIONAL: No night sweats. No fatigue, malaise, lethargy. No fever or chills. HEENT: Eyes: No visual changes. No eye pain. No eye discharge. ENT: No runny nose. No epistaxis. No sinus pain. No odynophagia. No congestion. RESPIRATORY: Cough, no congestion. No hemoptysis. Shortness of breath. Wheezing. CARDIOVASCULAR: No angina symptoms. No CHF symptoms. No atypical chest pain for CAD. No palpitations. No orthopnea.. GASTROINTESTINAL: No abdominal pain. No nausea or vomiting. No diarrhea or constipation. No hematemesis. No hematochezia. GENITOURINARY: No urgency. No frequency. No dysuria. No hematuria. No obstructive symptoms. No discharge. No pain. No significant abnormal bleeding. MUSCULOSKELETAL: No musculoskeletal pain; no joint swelling. NEUROLOGICAL: Awake, alert, oriented to time, place and person. No headache. No neck pain. No syncope. No seizures. No dizziness. PSYCHIATRIC: Not anxious. No depression. No suicidal thoughts. No homicidal thoughts. SKIN: No rash. No lesions. No wounds. ENDOCRINE: No unexplained weight loss. No weight gain. HEMATOLOGIC/LYMPHATIC: No anemia. No purpura. No petechiae. No prolonged or excessive bleeding. No palpable lymph nodes. PHYSICAL EXAMINATION: GENERAL: The patient is awake, alert and oriented, lying in bed in no distress. VITAL SIGNS: Temperature 97.6 F, Pulse 81, Respiratory Rate 20, BP 132/61, Pulse Ox 99% HEENT: Head normocephalic, atraumatic. Eyes: Extraocular muscles are intact. Pupils are equal, round and reactive to light and accommodation. Ears: No lesions. Nose appeared normal. Throat: No exudate or erythema. NECK: Supple. No JVD, no carotid bruit. No lymphadenopathy or thyromegaly. LUNGS: Severely diminished breath sounds. Clear to auscultation. Percussion note normal. Chest symmetrical. HEART: S1, S2, no S3. No murmurs. No cyanosis or clubbing. No ascites. Pulses: Dorsalis pedis and posterior tibial pulses +1 to +2 both sides. ABDOMEN: Soft. Non-tender. Bowel sounds active. No CVA tenderness. No mass felt. EXTREMITIES: No edema. Full range of motion of all extremities, equal. NEUROLOGIC: No focal deficit. Cranial nerves II through XII are grossly intact. No headache, no double vision or headache. SKIN: Not dry. Intact. Turgor-normal. LYMPHATIC: No palpable lymph nodes/no lymphedema. MUSCULOSKELETAL: Normal joints with no swelling. Muscle tone is normal. LAB REVIEW: 03/30/19 04:54 03/30/19 04:54 03/30/19 04:54: Sodium 137.9, Potassium 4.54, Chloride 103.9, Carbon Dioxide 28.3, Anion Gap 10.24, BUN 17.6 H, Creatinine 0.85, Estimated GFR (MDRD) 65.00, BUN/Creatinine Ratio 20.70, Glucose 135.7 H, Calcium 9.20, Total Bilirubin 0.43, AST 33.4, ALT 25.1, Alkaline Phosphatase 79.9 D, Total Protein 6.48, Albumin 3.53, Globulin 2.95, Albumin/Globulin Ratio 1.19 03/30/19 04:54: PT 21.1 H D, INR 2.25 03/30/19 04:54: WBC 4.55 L, RBC 4.03 L, Hgb 11.8 L, Hct 36.7 L, MCV 91.1, MCH 29.3, MCHC 32.2, RDW Coeff of Elie 15.1 H, Plt Count 167, Immature Gran % (Auto) 0.7, Neut % (Auto) 86.3, Lymph % (Auto) 9.5 L, [place] % (Auto) 3.3, Eos % (Auto) 0.0, Baso % (Auto) 0.2, Immature Gran # (Auto) 0.0, Neut # (Auto) 3.9, Lymph # (Auto) 0.4 L, [place] # (Auto) 0.2 L, Eos # (Auto) 0.0, Baso # (Auto) 0.0 03/29/19 19:45: Total Creatine Kinase 173.7 H, CK-MB (CK-2) 1.780, CK-MB (CK-2) % 1.0200, Troponin I < 0.012 03/29/19 13:33: Urine Color Yellow, Urine Clarity Clear, Urine pH 7.0, Ur Specific Melvin 1.010, Urine Protein Negative, Urine Glucose (UA) Negative, Urine Ketones Negative, Urine Blood 1+, Urine Nitrite Negative, Urine Bilirubin Negative, Urine Urobilinogen 0.2, Ur Leukocyte Esterase Negative, Urine Microscopic RBC 5-10, Ur Squamous Epith Cells 2-5 03/29/19 12:00: Influ A Molecular Assay Negative by naat, Influ B Molecular Assay Negative by naat 03/29/19 11:58: PT 35.6 H, INR 3.92 H 03/29/19 11:58: Sodium 135.1, Potassium 3.75, Chloride 97.7 L, Carbon Dioxide 29.2, Anion Gap 11.95, BUN 15.4, Creatinine 1.05, Estimated GFR (MDRD) 51.00, BUN/Creatinine Ratio 14.66, Glucose 94.9, Calcium 10.03, Total Bilirubin 0.65, AST 42.3 H, ALT 27.3, Alkaline Phosphatase 109.1, Total Creatine Kinase 185.2 H, CK-MB (CK-2) 1.790, CK-MB (CK-2) % 0.9600, Troponin I 0.015, Total Protein 7.40, Albumin 4.26, Globulin 3.14, Albumin/Globulin Ratio 1.35 03/29/19 11:58: WBC 7.58, RBC 4.34, Hgb 12.5, Hct 39.5, MCV 91.0, MCH 28.8, MCHC 31.6 L, RDW Coeff of Elie 15.4 H, Plt Count 195, Immature Gran % (Auto) 0.3, Neut % (Auto) 75.4, Lymph % (Auto) 13.7, [place] % (Auto) 9.5, Eos % (Auto) 0.7, Baso % (Auto) 0.4, Immature Gran # (Auto) 0.0, Neut # (Auto) 5.7, Lymph # (Auto) 1.0, [place] # (Auto) 0.7, Eos # (Auto) 0.1, Baso # (Auto) 0.0 03/29/19 11:43: Puncture Site R brach, O2 Saturation 97.0, ABG pH 7.429, ABG pCO2 41.0, ABG pO2 94.0, ABG HCO3 27 H, ABG Total CO2 28, ABG Base Excess 3 H, [place] Test +, O2 Delivery Device 2.5, FiO2 % 21.0 ASSESSMENT: Please see below. 1. Acute pneumonitis 2. Shortness of breath improved 3. Fever improved 4. Right sided pleurisy 5. COPD 6. Known pulmonary nodules per chest x-ray PLAN: 1. Discontinue IV fluids 2. Phenergan with codeine one to two teaspoons BID 3. CT of the chest with and without 4. Resume Coumadin today Plan and coordination of the patient's care discussed in the presence of Sustainability Engineer and nurse. SCRIBED BY: LEE RODRIGUEZ Airframe Technical Officer scribed while in presence of service performed by Dr. Rascon/Zuly Henry APRN on 03/30/19 ([id number])
[2019-03-30] MEDS ORDERED: CALCIUM CARBONATE 1200 MG PO SCH (09:00)
[2019-03-30] MEDS: MAXIPIME 2 GM/50 ML D5W 2 GM/50 ML BAG IV SCH ×2 (09:55→21:01)
[2019-03-30] MEDS: PHENERGAN WITH CODEINE 6.25/10 MG/5 ML PO SCH ×2 (10:23→20:59)
--- NOTE | 2019-03-30 11:46 | PN ---
DATE OF SERVICE: 03/30/19 SUBJECTIVE: The patient was seen and examined with the nurse practitioner. The patient's condition seems to be improving on nebs, steroids and antibiotics. ASSESSMENT: 1. Chronic lung disease, advise pulmonary rehab. CONDITION: Stable. TIME SPENT: More than 30 minutes. Plan and coordination of the patient's care discussed in the presence of nurse. ANETA
[2019-03-30] MEDS: ASPIRIN EC PO SCH (11:54)
[2019-03-30] MEDS: CALCIUM 500 + VIT D 200 MG TABLET PO SCH (11:55)
[2019-03-30] MEDS: VITAMIN D PO SCH (11:55)
[2019-03-30] MEDS: ZITHROMAX PO SCH (11:55)
--- NOTE | 2019-03-30 14:56 | CT ---
EXAM: CT thorax HISTORY: Shortness of breath. Cough. History of chronic obstructive pulmonary disease. TECHNIQUE: CT thorax with and without intravenous contrast. Multiplanar images were provided. 75 m l Omnipaque. FINDINGS: Compared to 08/29/2017. Normal heart size. No pericardial effusion. Moderately severe atherosclerotic disease. Calcified h ilar and mediastinal lymph nodes consistent with old granulomatous disease. The lungs again demonstrate relatively severe pulmonary emphysema and scattered fibrosis with biapica l thickening/scarring and scattered small calcified pulmonary nodules. These findings are stable. I n the posterior lateral right upper lobe there is a 6 mm with no definite calcification. This is new or larger since previous exam and could represent developing nodule or interval scarring. Otherwise the lungs appear stable. There is no definite consolidated pneumonia. There is no vascular congest ion, central interstitial edema, pneumothorax or pleural fluid. The bones are demineralized. Degenerative changes of the spine are present. Partial visualization o f a cystic mass of the left kidney appearing similar to that previously seen, probable cyst IMPRESSION: 1. Severe emphysema and scarring. No definite consolidated pneumonia. 2. Possible developing right upper lobe nodule currently at 6 mm. Consider follow-up CT in 4-6 ethan hs. 3. Old granulomatous disease. 4. Atherosclerotic disease.
[2019-03-30] MEDS: COUMADIN PO SCH (18:27)
[2019-03-30] MEDS: ATIVAN PO PRN (21:00)
[2019-03-30] MEDS: ULTRAM PO PRN (21:00)
[2019-03-30] MEDS: SINGULAIR PO SCH (21:01)
[2019-03-31] MEDS: DUONEB NEB SCH ×2 (04:45→11:02)
[2019-03-31] MEDS: PULMICORT 1 MG/2 ML NEB SCH (04:45)
[2019-03-31] MEDS: SOLU-CORTEF 250 MG IVP SCH ×3 (05:53→20:39)
[2019-03-31] MEDS: PROTONIX PO SCH (05:54)
[2019-03-31] MEDS: MAXIPIME 2 GM/50 ML D5W 2 GM/50 ML BAG IV SCH ×2 (09:19→20:36)
[2019-03-31] MEDS: ZITHROMAX PO SCH (09:20)
[2019-03-31] MEDS: VITAMIN D PO SCH (09:20)
[2019-03-31] MEDS: K-DUR PO SCH ×3 (09:21→17:56)
[2019-03-31] MEDS: CALCIUM 500 + VIT D 200 MG TABLET PO SCH (09:21)
[2019-03-31] MEDS: PHENERGAN WITH CODEINE 6.25/10 MG/5 ML PO SCH ×2 (09:21→20:37)
--- NOTE | 2019-03-31 10:19 | PCM.PROG ---
Attending Provider: ATTENDING PROVIDER: Dr. RAISA RASCON DATE OF SERVICE: 03/31/19 SUBJECTIVE: This 78 year old /WHITE F was hospitalized 03/29/19 with acute pneumonia with fever and chills. The patient's condition steadily has improved. She has sputum growing Pseudomonas Aeruginosa. Her antibiotic was changed to Cefepime. CT scan showed right lobe 6mm nodule. The patient will be followed by pulmonary physician, Dr. Platt and we will fax him the report. REVIEW OF SYSTEMS: CONSTITUTIONAL: No night sweats. No fatigue, malaise, lethargy. No fever or chills. HEENT: Eyes: No visual changes. No eye pain. No eye discharge. ENT: No runny nose. No epistaxis. No sinus pain. No odynophagia. No congestion. RESPIRATORY: Cough, no congestion. No hemoptysis. No shortness of breath. CARDIOVASCULAR: No angina symptoms. No CHF symptoms. No atypical chest pain for CAD. No palpitations. No orthopnea.. GASTROINTESTINAL: No abdominal pain. No nausea or vomiting. No diarrhea or constipation. No hematemesis. No hematochezia. GENITOURINARY: No urgency. No frequency. No dysuria. No hematuria. No obstructive symptoms. No discharge. No pain. No significant abnormal bleeding. MUSCULOSKELETAL: No musculoskeletal pain; no joint swelling. NEUROLOGICAL: Awake, alert, oriented to time, place and person. No headache. No neck pain. No syncope. No seizures. No dizziness. PSYCHIATRIC: Not anxious. No depression. No suicidal thoughts. No homicidal thoughts. SKIN: No rash. No lesions. No wounds. ENDOCRINE: No unexplained weight loss. No weight gain. HEMATOLOGIC/LYMPHATIC: No anemia. No purpura. No petechiae. No prolonged or excessive bleeding. No palpable lymph nodes. PHYSICAL EXAMINATION: GENERAL: The patient is awake, alert and oriented, lying in bed in no distress. VITAL SIGNS: Temperature 98.6 F, Pulse 97, Respiratory Rate 18, BP 134/62, Pu lse Ox 100% HEENT: Head normocephalic, atraumatic. Eyes: Extraocular muscles are intact. Pupils are equal, round and reactive to light and accommodation. Ears: No lesions. Nose appeared normal. Throat: No exudate or erythema. NECK: Supple. No JVD, no carotid bruit. No lymphadenopathy or thyromegaly. LUNGS: Decreased breath sounds with bilateral wheeze. Clear to auscultation. Percussion note normal. Chest symmetrical. HEART: S1, S2, no S3. No murmurs. No cyanosis or clubbing. No ascites. Pulses: Dorsalis pedis and posterior tibial pulses +1 to +2 both sides. ABDOMEN: Soft. Non-tender. Bowel sounds active. No CVA tenderness. No mass felt. EXTREMITIES: No edema. Full range of motion of all extremities, equal. NEUROLOGIC: No focal deficit. Cranial nerves II through XII are grossly intact. No headache, no double vision or headache. SKIN: Warm and dry. Intact. Turgor-normal. LYMPHATIC: No palpable lymph nodes/no lymphedema. MUSCULOSKELETAL: Normal joints with no swelling. Muscle tone is normal. LAB REVIEW: 03/31/19 04:50 03/31/19 04:50 03/31/19 04:50: Sodium 139.1, Potassium 3.43 L, Chloride 106.5, Carbon Dioxide 26.7, Anion Gap 9.33, BUN 18.8 H, Creatinine 0.88, Estimated GFR (MDRD) 62.00, BUN/Creatinine Ratio 21.36, Glucose 109.1 H, Calcium 9.60, Total Bilirubin 0.26, AST 24.2, ALT 21.7, Alkaline Phosphatase 78.8, Total Protein 6.46, Albumin 3.57, Globulin 2.89, Albumin/Globulin Ratio 1.23 03/31/19 04:50: PT 17.0 H, INR 1.79 03/31/19 04:50: WBC 9.75 D, RBC 3.81 L, Hgb 11.0 L, Hct 34.2 L, MCV 89.8, MCH 28.9, MCHC 32.2, RDW Coeff of Elie 15.3 H, Plt Count 183, Immature Gran % (Auto) 0.5, Neut % (Auto) 87.1, Lymph % (Auto) 4.0 L, [place] % (Auto) 8.4, Eos % (Auto) 0.0, Baso % (Auto) 0.0, Immature Gran # (Auto) 0.1, Neut # (Auto) 8.5 H, Lymph # (Auto) 0.4 L, [place] # (Auto) 0.8, Eos # (Auto) 0.0, Baso # (Auto) 0.0 03/29/19 11:43: O2 Delivery Device Nc, Oxygen Liter Flow 2.50, FiO2 % 32.0 ASSESSMENT: Please see below. 1. Pneumonia clinically seems to be resolving with improvement in appetite. The patient was advised to join pulmonary rehab which the patient declined. PLAN: 1. Cefepime 2. Steroids 3. CT scan copt sent to Dr. Platt, pulmonary physician Plan and coordination of the patient's care discussed in the presence of Manager Combination and nurse. SCRIBED BY: LEE RODRIGUEZ Manager Forensic scribed while in presence of service performed by Dr. RAISA RASCON on 03/31/19 ([id number])
[2019-03-31] MEDS: ASPIRIN EC PO SCH (11:26)
[2019-03-31] MEDS: ADVAIR 250-50 DISKUS IH SCH ×2 (17:09→21:07)
[2019-03-31] MEDS: COMBIVENT RESPIMAT INHAL SPRAY IH SCH ×2 (17:09→20:36)
[2019-03-31] MEDS: COUMADIN PO SCH (17:09)
[2019-03-31] MEDS: SINGULAIR PO SCH (20:35)
[2019-03-31] MEDS: ALBUTEROL 0.083% NEB NEB PRN (22:50)
[2019-04-01] MEDS: PROTONIX PO SCH (05:43)
[2019-04-01] MEDS: SOLU-CORTEF 250 MG IVP SCH (05:46)
[2019-04-01] MEDS: ALBUTEROL 0.083% NEB NEB PRN (06:05)
[2019-04-01] MEDS ORDERED: LASIX IVP STA (08:19)
--- NOTE | 2019-04-01 09:03 | PCM.PROG ---
Attending Provider: ATTENDING PROVIDER: Dr. RAISA RASCON This patient is seen with Zuly Henry, Nurse Practitioner. DATE OF SERVICE: 04/01/19 SUBJECTIVE: This 78 year old /WHITE F was hospitalized 03/29/19. The patient is more short of breath and more anxious. It settles down when she is at rest. Cough has improved. REVIEW OF SYSTEMS: CONSTITUTIONAL: No night sweats. No fatigue, malaise, lethargy. No fever or chills. HEENT: Eyes: No visual changes. No eye pain. No eye discharge. ENT: No runny nose. No epistaxis. No sinus pain. No odynophagia. No congestion. RESPIRATORY: Cough, no congestion. No hemoptysis. Shortness of breath. CARDIOVASCULAR: No angina symptoms. No CHF symptoms. No atypical chest pain for CAD. No palpitations. No orthopnea.. GASTROINTESTINAL: No abdominal pain. No nausea or vomiting. No diarrhea or constipation. No hematemesis. No hematochezia. GENITOURINARY: No urgency. No frequency. No dysuria. No hematuria. No obstructive symptoms. No discharge. No pain. No significant abnormal bleeding. MUSCULOSKELETAL: No musculoskeletal pain; no joint swelling. NEUROLOGICAL: Awake, alert, oriented to time, place and person. No headache. No neck pain. No syncope. No seizures. No dizziness. PSYCHIATRIC: Not anxious. No depression. No suicidal thoughts. No homicidal thoughts. SKIN: No rash. No lesions. No wounds. ENDOCRINE: No unexplained weight loss. No weight gain. HEMATOLOGIC/LYMPHATIC: No anemia. No purpura. No petechiae. No prolonged or excessive bleeding. No palpable lymph nodes. PHYSICAL EXAMINATION: GENERAL: The patient is awake, alert and oriented, lying in bed in no distress. Anxious. VITAL SIGNS: Temperature 98.5 F, Pulse 82, Respiratory Rate 20, BP 149/80, Pulse Ox 100% HEENT: Head normocephalic, atraumatic. Eyes: Extraocular muscles are intact. Pupils are equal, round and reactive to light and accommodation. Ears: No lesions. Nose appeared normal. Throat: No exudate or erythema. NECK: Supple. No JVD, no carotid bruit. No lymphadenopathy or thyromegaly. LUNGS: Diminished breath sounds. Clear to auscultation. Percussion note normal. Chest symmetrical. HEART: S1, S2, no S3. No murmurs. No cyanosis or clubbing. No ascites. Pulses: Dorsalis pedis and posterior tibial pulses +1 to +2 both sides. ABDOMEN: Soft. Non-tender. Bowel sounds active. No CVA tenderness. No mass felt. EXTREMITIES: No edema. Full range of motion of all extremities, equal. NEUROLOGIC: No focal deficit. Cranial nerves II through XII are grossly intact. No headache, no double vision or headache. SKIN: Not dry. Intact. Turgor-normal. LYMPHATIC: No palpable lymph nodes/no lymphedema. MUSCULOSKELETAL: Normal joints with no swelling. Muscle tone is normal. LAB REVIEW: 04/01/19 04:41 04/01/19 04:41 04/01/19 04:41: Sodium 138.9, Potassium 3.85, Chloride 109.3 H, Carbon Dioxide 26.6, Anion Gap 6.85, BUN 22.4 H, Creatinine 0.92, Estimated GFR (MDRD) 59.00, BUN/Creatinine Ratio 24.34, Glucose 109.8 H, Calcium 9.36, Total Bilirubin 0.29, AST 21.2, ALT 18.9, Alkaline Phosphatase 71.7, Total Protein 5.99 L, Albumin 3.26 L, Globulin 2.73, Albumin/Globulin Ratio 1.19 04/01/19 04:41: PT 27.1 H D, INR 2.94 04/01/19 04:41: WBC 11.72 H, RBC 3.73 L, Hgb 10.9 L, Hct 33.8 L, MCV 90.6, MCH 29.2, MCHC 32.2, RDW Coeff of Elie 15.4 H, Plt Count 211, Immature Gran % (Auto) 0.4, Neut % (Auto) 90.6, Lymph % (Auto) 5.3 L, [place] % (Auto) 3.6, Eos % (Auto) 0.0, Baso % (Auto) 0.1, Immature Gran # (Auto) 0.1, Neut # (Auto) 10.6 H, Lymph # (Auto) 0.6, [place] # (Auto) 0.4, Eos # (Auto) 0.0, Baso # (Auto) 0.0 ASSESSMENT: Please see below. 1. Acute pneumonitis 2. Shortness of breath improved 3. Fever improved 4. Right sided pleurisy 5. COPD 6. Known pulmonary nodules per chest x-ray PLAN: 1. Hold Coumadin 2. Potassium daily 3. Lasix 20mg IV times one 4. Steroids Q 12 hours Plan and coordination of the patient's care discussed in the presence of Child Development Consultant and nurse. SCRIBED BY: Luis REDD scribed while in presence of service performed by Dr. Rascon/Zuly Henry APRN on 04/01/19 ([id number])
[2019-04-01] MEDS: K-DUR PO SCH ×2 (09:22→10:47)
[2019-04-01] MEDS: CALCIUM 500 + VIT D 200 MG TABLET PO SCH (09:22)
[2019-04-01] MEDS: MAXIPIME 2 GM/50 ML D5W 2 GM/50 ML BAG IV SCH ×2 (09:22→20:46)
[2019-04-01] MEDS: VITAMIN D PO SCH (09:22)
[2019-04-01] MEDS: PHENERGAN WITH CODEINE 6.25/10 MG/5 ML PO SCH ×2 (09:23→20:46)
[2019-04-01] MEDS: ADVAIR 250-50 DISKUS IH SCH ×2 (09:24→20:45)
[2019-04-01] MEDS: COMBIVENT RESPIMAT INHAL SPRAY IH SCH ×4 (10:21→20:45)
[2019-04-01] MEDS ORDERED: IMODIUM A-D PO PRN (11:25)
[2019-04-01] MEDS ORDERED: IMODIUM PO PRN (12:10)
[2019-04-01] MEDS: SINGULAIR PO SCH (20:47)
[2019-04-01] MEDS ORDERED: SOLU-CORTEF 250 MG IVP SCH (21:00)
[2019-04-01] MEDS: ATIVAN PO PRN (21:20)
[2019-04-01] MEDS: ULTRAM PO PRN (21:20)
[2019-04-02 05:21] VITALS: BP 152/73; TEMP 97.7
[2019-04-02] MEDS: PROTONIX PO SCH (06:00)
[2019-04-02] MEDS ORDERED: PREDNISONE PO SCH (09:00)
[2019-04-02] MEDS: ADVAIR 250-50 DISKUS IH SCH (09:09)
[2019-04-02] MEDS: COMBIVENT RESPIMAT INHAL SPRAY IH SCH (09:09)
[2019-04-02] MEDS: VITAMIN D PO SCH (09:10)
[2019-04-02] MEDS: CALCIUM 500 + VIT D 200 MG TABLET PO SCH (09:10)
[2019-04-02] MEDS: PHENERGAN WITH CODEINE 6.25/10 MG/5 ML PO SCH (09:10)
[2019-04-02] MEDS: K-DUR PO SCH (09:10)
--- NOTE | 2019-04-02 09:31 | PCM.PROG ---
Attending Provider: ATTENDING PROVIDER: Dr. RAISA RASCON This patient is seen with Zuly Henry, Nurse Practitioner. DATE OF SERVICE: 04/02/19 SUBJECTIVE: This 78 year old /WHITE F was hospitalized 03/29/19. The patient is resting comfortably. Shortness of breath is significantly improved. The patient is back to baseline. Cough has improved. No fever. REVIEW OF SYSTEMS: CONSTITUTIONAL: No night sweats. No fatigue, malaise, lethargy. No fever or chills. Weakness. HEENT: Eyes: No visual changes. No eye pain. No eye discharge. ENT: No runny nose. No epistaxis. No sinus pain. No odynophagia. No congestion. RESPIRATORY: Cough, no congestion. No hemoptysis. No shortness of breath. CARDIOVASCULAR: No angina symptoms. No CHF symptoms. No atypical chest pain for CAD. No palpitations. No orthopnea.. GASTROINTESTINAL: No abdominal pain. No nausea or vomiting. No diarrhea or constipation. No hematemesis. No hematochezia. GENITOURINARY: No urgency. No frequency. No dysuria. No hematuria. No obstructive symptoms. No discharge. No pain. No significant abnormal bleeding. MUSCULOSKELETAL: No musculoskeletal pain; no joint swelling. NEUROLOGICAL: Awake, alert, oriented to time, place and person. No headache. No neck pain. No syncope. No seizures. No dizziness. PSYCHIATRIC: Not anxious. No depression. No suicidal thoughts. No homicidal thoughts. SKIN: No rash. No lesions. No wounds. ENDOCRINE: No unexplained weight loss. No weight gain. HEMATOLOGIC/LYMPHATIC: No anemia. No purpura. No petechiae. No prolonged or excessive bleeding. No palpable lymph nodes. PHYSICAL EXAMINATION: GENERAL: The patient is awake, alert and oriented,sitting in bed in no distress. VITAL SIGNS: Temperature 97.7 F, Pulse 80, Respiratory Rate 20, BP 152/73, Pulse Ox 100% HEENT: Head normocephalic, atraumatic. Eyes: Extraocular muscles are intact. Pupils are equal, round and reactive to light and accommodation. Ears: No lesions. Nose appeared normal. Throat: No exudate or erythema. NECK: Supple. No JVD, no carotid bruit. No lymphadenopathy or thyromegaly. LUNGS: Diminished breath sounds. No wheezing. Clear to auscultation. Percussion note normal. Chest symmetrical. HEART: S1, S2, no S3. No murmurs. No cyanosis or clubbing. No ascites. Pulses: Dorsalis pedis and posterior tibial pulses +1 to +2 both sides. ABDOMEN: Soft. Non-tender. Bowel sounds active. No CVA tenderness. No mass felt. EXTREMITIES: No edema. Full range of motion of all extremities, equal. NEUROLOGIC: No focal deficit. Cranial nerves II through XII are grossly intact. No headache, no double vision or headache. SKIN: Not dry. Intact. Turgor-normal. LYMPHATIC: No palpable lymph nodes/no lymphedema. MUSCULOSKELETAL: Normal joints with no swelling. Muscle tone is normal. LAB REVIEW: 04/02/19 05:20 04/02/19 05:20 04/02/19 05:20: Sodium 139.1, Potassium 3.82, Chloride 101.8, Carbon Dioxide 31.2 H, Anion Gap 9.92, BUN 21.8 H, Creatinine 0.93, Estimated GFR (MDRD) 59.00, BUN/Creatinine Ratio 23.44, Glucose 100.3, Calcium 9.46, Total Bilirubin 0.61, AST 27.8, ALT 23.1, Alkaline Phosphatase 74.2, Total Protein 7.08, Albumin 3.98, Globulin 3.10, Albumin/Globulin Ratio 1.28 04/02/19 05:20: PT 21.4 H D, INR 2.28 04/02/19 05:20: WBC 9.72, RBC 4.34, Hgb 12.8, Hct 39.3, MCV 90.6, MCH 29.5, MCHC 32.6, RDW Coeff of Elie 15.4 H, Plt Count 233, Immature Gran % (Auto) 0.5, Neut % (Auto) 87.8, Lymph % (Auto) 7.2 L, Peach % (Auto) 4.4, Eos % (Auto) 0.0, Baso % (Auto) 0.1, Immature Gran # (Auto) 0.1, Neut # (Auto) 8.5 H, Lymph # (Auto) 0.7, Peach # (Auto) 0.4, Eos # (Auto) 0.0, Baso # (Auto) 0.0 04/01/19 08:19: Puncture Site R brach, O2 Saturation 95.0, ABG pH 7.43, ABG pCO2 34.4 L, ABG pO2 75.0 L, ABG HCO3 23, ABG Total CO2 24, ABG Base Excess -1, Milton Test +, O2 Delivery Device Nc, Oxygen Liter Flow 2.00, FiO2 % 28.0 ASSESSMENT: Please see below. 1. Acute pneumonia 2. Severe COPD 3. Sputum culture positive for pseudomonas PLAN: 1. Discharge home 2. Prednisone 20mg twice a day for two days, then daily for 3 days. 3. Zpack 250 take as directed 4. Resume home medication 5. Followup in office next week. Plan and coordination of the patient's care discussed in the presence of Training Program Developer and nurse. SCRIBED BY: Zachariah REDDist scribed while in presence of service performed by Dr. Rascon/Zuly Henry APRN on 04/02/19 ([id number])
--- NOTE | 2019-04-02 10:04 | CM.DICTOOL ---
ADMISSION: 03/29/19 11:10 DISCHARGE: APRIL 02, 2019 DATE OF SERVICE: 04/02/19 FINAL DIAGNOSIS ACUTE PNEUMONITIS SHORTNESS OF BREATH COPD (OXYGEN DEPENDENT) PLEURITIC PAIN, RIGHT CHEST HYPOKALEMIA, RESOLVED HISTORY OF: PULMONARY FIBROSIS LUNG NODULE, RIGHT 7.4 MM (DR. 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) OSTEOARTHRITIS GOUT PREVIOUS SMOKER, STOPPED 2014 CATARACT EXTRACTION, 06/2018 HYSTERECTOMY APPENDECTOMY PFT: 06/15/2018 SEVERE COPD ECHOCARDIOGRAM: 03/2019 RIGHT VENTRICLE ENLARGEMENT CALCIFIC AORTIC VALVE, MAYBE MILD STENOSIS NORMAL LV CONTRACTILITY LVEF 78% A1C 5.6 (September,) LAST VITALS Temp Pulse Resp BP Pulse Ox 97.7 F 80 20 152/73 H 100 04/02/19 05:19 04/02/19 05:19 04/02/19 05:19 04/02/19 05:19 04/02/19 05:19 TAKE THESE MEDICATIONS AT HOME Albuterol Sulfate (Albuterol 0.083% Neb) 2.5 mg NEB BID Last Admin: 04/01/19 06:05 Dose: 2.5 mg Documented by: Albuterol/Ipratropium (Combivent Respimat Inhal [place]) 1 spray IH QID [facility] Last Admin: 04/02/19 09:09 Dose: 1 spray Documented by: Calcium/Vitamin D (Calcium 500 + Vit D 200 Mg Tablet) 2 each PO DAILY [facility] Last Admin: 04/02/19 09:10 Dose: 2 each Documented by: Cholecalciferol (Vitamin D) 2,000 unit PO DAILY [facility] Last Admin: 04/02/19 09:10 Dose: 2,000 unit Documented by: Lorazepam (Ativan) 0.5 - 1 mg PO BID PRN PRN Reason: Anxiety Last Admin: 04/01/19 21:20 Dose: 0.5 mg Documented by: Montelukast Sodium (Singulair) 10 mg PO BEDTIME [facility] Last Admin: 04/01/19 20:47 Dose: 10 mg Documented by: Pantoprazole Sodium (Protonix) 40 mg PO QDAC [facility] Last Admin: 04/02/19 06:00 Dose: 40 mg Documented by: Prednisone (Prednisone) 20 mg PO WITH MEAL [facility] DIRECTED (RX) Last Admin: 04/02/19 09:15 Dose: 20 mg Documented by: Promethazine HCl/Codeine (Phenergan With Codeine 6.25/10 Mg/5 Ml) 5 - 10 ml PO BID OLV[facility] (RX) Last Admin: 04/02/19 09:10 Dose: 5 ml Documented by: Fluticasone/Salmeterol (Advair 250-50 Diskus) 1 puff IH BID [facility] Last Admin: 04/02/19 09:09 Dose: 1 puff Documented by: Tramadol HCl (Ultram) 50 mg PO BID PRN PRN Reason: Pain Last Admin: 04/01/19 21:20 Dose: 50 mg Documented by: Warfarin Sodium (Coumadin) 4 mg PO QPM [facility] Last Admin: 03/31/19 17:09 Dose: 4 mg Documented by: Z-PACK 250 MG PO DIRECTED Last Admin: ALLERGIES ciprofloxacin [From Cipro] Adverse Reaction (Verified 06/30/17 08:16) hydrocodone Adverse Reaction (Verified 06/30/17 08:16) Abdominal Pain DISCONTINUED MEDICATIONS NONE NEW PRESCRIPTIONS: Z-PACK 250 MG TAKE DIRECTED PREDNISONE 20 MG BID FOR 2 DAYS, THEN DAILY FOR 3 DAYS PHENERGAN WITH CODEINE 1-2 TSP BID SMOKING: NOT APPLICABLE DISEASE SPECIFIC EDUCATION: USE OF NEBULIZER TREATMENTS AT LEAST BID STEROIDS AND RISK OF GI IRRIATION, BONE DEMINERALIZATION APPOINTMENT ACTIVITY LAB REVIEW: 04/02/19 05:20 04/02/19 05:20 04/02/19 05:20: Sodium 139.1, Potassium 3.82, Chloride 101.8, Carbon Dioxide 31.2 H, Anion Gap 9.92, BUN 21.8 H, Creatinine 0.93, Estimated GFR (MDRD) 59.00, BUN/Creatinine Ratio 23.44, Glucose 100.3, Calcium 9.46, Total Bilirubin 0.61, AST 27.8, ALT 23.1, Alkaline Phosphatase 74.2, Total Protein 7.08, Albumin 3.98, Globulin 3.10, Albumin/Globulin Ratio 1.28 04/02/19 05:20: PT 21.4 H D, INR 2.28 04/02/19 05:20: WBC 9.72, RBC 4.34, Hgb 12.8, Hct 39.3, MCV 90.6, MCH 29.5, MCHC 32.6, RDW Coeff of Elie 15.4 H, Plt Count 233, Immature Gran % (Auto) 0.5, Neut % (Auto) 87.8, Lymph % (Auto) 7.2 L, Ransom % (Auto) 4.4, Eos % (Auto) 0.0, Baso % (Auto) 0.1, Immature Gran # (Auto) 0.1, Neut # (Auto) 8.5 H, Lymph # (Auto) 0.7, Ransom # (Auto) 0.4, Eos # (Auto) 0.0, Baso # (Auto) 0.0 04/01/19 08:19: Puncture Site R brach, O2 Saturation 95.0, ABG pH 7.43, ABG pCO2 34.4 L, ABG pO2 75.0 L, ABG HCO3 23, ABG Total CO2 24, ABG Base Excess -1, Milton Test +, O2 Delivery Device Nc, Oxygen Liter Flow 2.00, FiO2 % 28.0 PLAN: DISCHARGE HOME WITH SPOUSE DIET: REGULAR TOLERATED ACTIVITY: RESUME TOLERATED, REST WHEN TIRED USE OXYGEN CONTINUOUSLY AT 2 LITERS PER NASAL CANNULA AN APPOINTMENT IS SCHEDULED WITH DR. RASCON/JAZZMINE CHEW APRN ON March AT 11:30 AM NEXT APPOINTMENT WITH DR. OLIVAS IS IN THE SPRING PER PATIENT. A COPY OF THE CHEST CT HAS BEEN SENT TO DR. OLIVAS AT THE [facility]. CODE STATUS: DO NOT INTUBATE, CPR ONLY 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 SHE LIVES AT HOME WITH HER SPOUSE. SHE IS AGREEABLE WITH DISCHARGE PLANS FOR TODAY. SHE IS INDEPENDENT WITH ACTIVITIES OF DAILY LIVING, BUT UTILIZES OXYGEN CONTINUOUSLY. SHE HAS OXYGEN, NEBULIZER AND INHALERS AVAILABLE IN THE HOME. MEAL INTAKES ARE GOOD AT 100%. SHE IS CONTINENT OF BOWEL AND BLADDER. SKIN IS INTACT AND FREE OF REDNESS OR DECUBITUS ULCERS. MRS. STEINBERG IS AMBULATORY TO THE BATHROOM AND IN THE ROOM WITHOUT ASSISTIVE DEVICE OR STAFF ASSISTANCE. MD JAZZMINE SMILEY APRN
--- NOTE | 2019-04-02 10:12 | ECHO2D ---
Date of Exam: 04/01/19 Ordering Physician: DR. RAISA RASCON Room #: [id number] Reason for Echo: SOB, EVALUATE LV FUNCTION, RESPIRATORY FAILURE M-Mode Normal Adult Results LV Dimensions Normal Adult Results AoV Opening excursions >1.6 1.6 LVEDD-base- 3.5-5.8 3.7 Ao root dimensions 2.0-3.7 3.0 LVESD-base- 3.1-4.6 L. Atrium dimensions 1.9-3.8 3.4 Post. Wall thickness 0.8-1.1 1.0 IV septum (thickness) 0.7-1.2 1.0 Post. Wall excursion 0.72-1.3 NORMAL Septal motion NORMAL Systolic motion R. Ventricular cavity 1.5-2.0 3.0 LVEF 60% 76% Paradoxical septal wall motion NORMAL 2-D : 2-D M Mode Echocardiogram was performed using apical four chamber and left parasternal long and short axis views. Mitral and tricuspid valves appear to be normal. CALCIFIC AORTIC VALVE. Contractility of the left ventricle seems to be normal, so is the cavity size. Left atrial cavity size and aortic root appear to be normal. There is no pericardial effusion. There is no thrombus noted in the left ventricle or left atrial cavity. No mitral valve prolapse noted. ENLARGED RIGHT VENTRICLE CAVITY M-MODE: MV: NORMAL AV: CALCIFIC AORTIC VALVE TV: NORMAL PV: NORMAL CHAMBER SIZE: ENLARGED RIGHT VENTRICLE CAVITY WALL MOTION: NORMAL PERICARDIUM: NORMAL INTERPRETATION: 1. ENLARGED RIGHT VENTRICLE CAVITY/CALCIFIC AORTIC VALVES--MAYBE MILD AORTIC STENOSIS 2. NORMAL LEFT VENTRICLE CONTRACTILITY 3. NORMAL VALVES MTDD
--- NOTE | 2019-04-05 13:29 | PN ---
03/29/19: Level 5 03/30/19: Intermediate 03/31/19: Intermediate 04/01/19: Intermediate 04/02/19: D as in discharge MTDD
--- NOTE | 2019-04-05 13:29 | PN ---
DATE OF SERVICE: 04/02/19 SUBJECTIVE: The patient was seen and examined with the Nurse Practitioner. The patient's condition has improved remarkably. She says she is feeling normal for the first time. She is up and about and her appetite is normal. Her cardiovascular status is stable. TIME SPENT: More than 30 minutes. Plan and coordination of the patient's care discussed in the presence of nurse. ANETA
--- NOTE | 2019-04-08 11:28 | PN ---
DATE OF SERVICE: 04/01/19 SUBJECTIVE: The patient was seen and examined with Nurse Practitioner. The patient's condition has improved. She was given Lasix. I examined again this afternoon and did an echo which showed normal LV contractility, normal valvular structures. She patient says that she is feeling better, feels jar filler. She has put out a lot urine with 20mg of Lasix. Her arterial blood gasses showed pO2 of 75 with pCO2 of 35 with normal pH. Her condition is stable and seems to be improving. The patient knows that she has severe COPD and gets a panic whenever she has some problem with the breathing. TIME SPENT: More than 30 minutes. Plan and coordination of the patient's care discussed in the presence of nurse. ANETA
--- NOTE | 2019-04-08 13:37 | HP ---
DATE OF SERVICE: 03/29/19 REASON FOR HOSPITALIZATION/HISTORY OF PRESENT ILLNESS: 78 year old white female has been coughing times 5 days with fever last night and shortness of breath. She has been hurting all over pain inthe right chest worse with deep breathing. Constant ache. PAST MEDICAL HISTORY: COPD 3-4 Dr. Platt Q 6months Bronchitis Pleuritic chest pain left lung Status post left cataract 06-22-18 Right shoulder injury Q 3 months ago. Cervical radiculopathy Osteopenia [place] Lung nodule Dr. Peterson resolved. FANNIE History of DVT PE, on Coumadin Polyarthritis History of Gout Pulmonary fibrosis A1c 5.6 on 10-07 PAST SURGICAL HISTORY: Hysterectomy REVIEW OF SYSTEMS: CONSTITUTIONAL: Fever, Fatigue. HEENT: Sinus drainage, Sore throat. RESPIRATORY: Cough, no congestion. CARDIOVASCULAR: Atypical chest pain for coronary artery disease, right sided pain with inspiration. No angina, CHF symptoms, palpitations or shortness of breath. GASTROINTESTINAL: No melena or abdominal pain. No GERD. GENITOURINARY: No hematuria, no prostatism, no polyuria. MANAGER FORMS: No blackout, no dizziness, no headache, no double vision. MUSCULOSKELETAL: Osteoarthritis pain, no joint swelling. ENDOCRINE: No weight loss, no weight gain. SKIN: Not dry, no rash. PSYCHIATRIC: Not anxious, no depression, no suicidal thoughts, no homicidal thoughts. SOCIAL HISTORY: Marital Status: . Alcohol Usage: No. Tobacco Usage: Quit 2014. FAMILY HISTORY: Father liver disease Mother COPD Brother cancer of liver Sister kidney disease MEDICATIONS: Tramadol 50mg two tablets PO daily PRN Lorazepam 0.5mg one or two at HS PRN daily Oxycodone 5mg PO daily PRN Coumadin 5mg PO daily Atrovent 0.3% two sprays each nostril two times per day Combivent four times a day Advair one puff twice a day PRN Singulair 10mg PO daily Pantoprazole 40mg PO daily Calcium 1200mg PO daily Cholecalciferol 2000 unit capsule one time per day. ALLERGIES: Cipro Hydrocodone PHYSICAL EXAMINATION: V/S: Pulse 106, blood pressure 124/68, temperature 100, Oxygen saturation 100%. Height 5'7, BMI 16.8, weight 107.2. GENERAL APPEARANCE: Oriented times three. HEENT: Pallor, shortness of breath and yellow sputum. NECK: No JVP, no bruits. RESPIRATORY: Decreased breath sounds with rales on right middle lobe. CARDIOVASCULAR: S1, S2, no S3, no murmur. No cyanosis, clubbing. No ascites. GI/ABDOMEN: No tenderness. Bowel sounds are active. EXTREMITIES: edema, pulses +1, equal. MANAGER FORMS: Deep tendon reflexes, sensory, motor and gait all normal. RECTAL: Patient refused/PELVIC: Advised yearly. ASSESSMENT: 1. Acute pneumonitis 2. Fever 3. Shortness of breath 4. Right pleuritic 5. COPD 3-4 Dr. Platt Q 6months 6. Bronchitis 7. Pleuritic chest pain left lung 8. Status post left cataract 06-22-18 9. Right shoulder injury Q 3 months ago. 10.Cervical radiculopathy 11.Osteopenia Prolia 12.Lung nodule Dr. Peterson resolved. 13.FANNIE 14.History of DVT PE, on Coumadin 15.Polyarthritis 16.History of Gout 17.Pulmonary fibrosis 18.A1c 5.6 on 10-07 PLAN: 1. Routine telemetry orders 2. Normal saline at 75cc an hour IV 3. ABG on 2 liters times one 4. CBC/CMP now and daily 5. Sputum culture 6. Blood culture times two 7. U/A 8. Daily INR 9. Continue home medications 10.Oxygen at 1-2 liters normal saline 11.Rapid Flu A and B 12.Chest x-ray 13.Rocephin 1gram IV daily 14.Zithromax 500mg PO daily times three days 15.Solu-Cortef 125mg IV Q 8 hours 16.DUONEB Q 6 hour scheduled 17.Pulmicort NEB 1mg twice a day TIME SPENT: More than 70 minutes. MTDD
--- NOTE | 2019-04-09 13:33 | DS ---
DATE OF SERVICE: 04/02/19 FINAL DIAGNOSIS: 1. ACUTE PNEUMONITIS 2. SHORTNESS OF BREATH 3. COPD (OXYGEN DEPENDENT) 4. PLEURITIC PAIN, RIGHT CHEST 5. HYPOKALEMIA, RESOLVED 6. HISTORY OF: PULMONARY FIBROSIS 7. LUNG NODULE, RIGHT 7.4 MM (DR. OLIVAS) 8. GERD 9. GENERALIZED ANXIETY DISORDER 10. OSTEOPENIA (PROLIA) 11. CERVICAL RADICULOPATHY 12. POLYARTHRITIS 13. 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 OSTEOARTHRITIS 15. GOUT 16. PREVIOUS SMOKER, STOPPED 2014 17. CATARACT EXTRACTION, 06/2018 18. HYSTERECTOMY 19. APPENDECTOMY 20. PFT: 06/15/2018 SEVERE COPD LAST VITALS Temp Pulse Resp BP Pulse Ox 97.7 F 80 20 152/73 H 100 04/02/19 05:19 04/02/19 05:19 04/02/19 05:19 04/02/19 05:19 04/02/19 05:19 DISCHARGE INSTRUCTIONS: 1. DISCHARGE HOME WITH SPOUSE 2. USE OXYGEN CONTINUOUSLY AT 2 LITERS PER NASAL CANNULA 3. AN APPOINTMENT IS SCHEDULED WITH DR. RASCON/JAZZMINE CHEW APRN ON March AT 11:30 AM. NEXT APPOINTMENT WITH DR. OLIVAS IS IN THE SPRING PER PATIENT. A COPY OF THE CHEST CT HAS BEEN SENT TO DR. OLIVAS AT THE [facility]. MEDICATIONS AT DISCHARGE: Albuterol Sulfate (Albuterol 0.083% Neb) 2.5 mg NEB BID Last Admin: 04/01/19 06:05 Dose: 2.5 mg Documented by: Albuterol/Ipratropium (Combivent Respimat Inhal [place]) 1 spray IH QID [facility] Last Admin: 04/02/19 09:09 Dose: 1 spray Documented by: Calcium/Vitamin D (Calcium 500 + Vit D 200 Mg Tablet) 2 each PO DAILY [facility] Last Admin: 04/02/19 09:10 Dose: 2 each Documented by: Cholecalciferol (Vitamin D) 2,000 unit PO DAILY [facility] Last Admin: 04/02/19 09:10 Dose: 2,000 unit Documented by: Lorazepam (Ativan) 0.5 - 1 mg PO BID PRN PRN Reason: Anxiety Last Admin: 04/01/19 21:20 Dose: 0.5 mg Documented by: Montelukast Sodium (Singulair) 10 mg PO BEDTIME [facility] Last Admin: 04/01/19 20:47 Dose: 10 mg Documented by: Pantoprazole Sodium (Protonix) 40 mg PO QDAC [facility] Last Admin: 04/02/19 06:00 Dose: 40 mg Documented by: Prednisone (Prednisone) 20 mg PO WITH MEAL [facility] DIRECTED (RX) Last Admin: 04/02/19 09:15 Dose: 20 mg Documented by: Promethazine HCl/Codeine (Phenergan With Codeine 6.25/10 Mg/5 Ml) 5 - 10 ml PO BID OLV[facility] (RX) Last Admin: 04/02/19 09:10 Dose: 5 ml Documented by: Fluticasone/Salmeterol (Advair 250-50 Diskus) 1 puff IH BID [facility] Last Admin: 04/02/19 09:09 Dose: 1 puff Documented by: Tramadol HCl (Ultram) 50 mg PO BID PRN PRN Reason: Pain Last Admin: 04/01/19 21:20 Dose: 50 mg Documented by: Warfarin Sodium (Coumadin) 4 mg PO QPM [facility] Last Admin: 03/31/19 17:09 Dose: 4 mg Documented by: Z-PACK 250 MG PO DIRECTED Last Admin: NEW PRESCRIPTIONS: Z-PACK 250 MG TAKE DIRECTED PREDNISONE 20 MG BID FOR 2 DAYS, THEN DAILY FOR 3 DAYS PHENERGAN WITH CODEINE 1-2 TSP BID DISCONTINUED MEDICATIONS: NONE DIET INSTRUCTIONS: 1. REGULAR TOLERATED ACTIVITY: RESUME TOLERATED, REST WHEN TIRED SMOKING: NOT APPLICABLE DISEASE SPECIFIC EDUCATION: USE OF NEBULIZER TREATMENTS AT LEAST BID STEROIDS AND RISK OF GI IRRIATION, BONE DEMINERALIZATION APPOINTMENT ACTIVITY HOSPITAL COURSE: The patient was hospitalized with acute bronchitis, COPD. She did not have any pneumonia. It took awhile before her respiratory status was brought under control with chronic bronchitis. She was treated with steroids, nebs, antibiotics. The patient had shortness of breath at times out of proportion could be from anxiety. Echo was done which again revealed that her LV contractility was normal. RV cavity is enlarged. She has calcific aortic valves with mild stenosis. The patient is strongly advised to join pulmonary rehab which she declined. The patient also had advised to have good protein intake. Prognosis is not good considering the severity of her lung problem and she understands. The side effects of steroids discussed with her to include avascular necrosis of femoral bone and osteoporosis, et cetera. She declined bone density test. CONDITION AT TIME OF DISCHARGE: Stable. TIME SPENT: More than 60 minutes. ANETA
== END 2019-04-02 10:30 | disposition home or self-care (01) ==
LOC: MEDSURG B 11:10
PROVIDERS: ADMIT Internal Medicine; ATTEND Internal Medicine

== ENCOUNTER 2019-06-01 12:14 | Inpatient (IN) ==
[2019-06-01] MEDS ORDERED: TYLENOL PO PRN ×2 (12:21→14:50)
[2019-06-01] MEDS ORDERED: DECADRON 4 MG/ML SDV IVP STA (12:21)
[2019-06-01] MEDS ORDERED: ATROVENT 0.02% NEB NEB STA (12:21)
[2019-06-01] MEDS ORDERED: XOPENEX 1.25 MG NEB STA (12:21)
[2019-06-01] MEDS ORDERED: SODIUM CHLORIDE 1,000 ML IV STA (12:21)
--- NOTE | 2019-06-01 12:21 | ED.PDOC ---
General ED Provider: Dr. SERINA FLORES Chief Complaint: Shortness of Air Stated Complaint: Severe SOB and chest congestion Time Seen by Physician: 12:15 Mode of Arrival: Wheelchair Information Source: Patient and Family Exam Limitations: No limitations Primary Care Provider: RAISA RASCON Nursing and Triage Documentation Reviewed and Agree: Yes Does patient meet sepsis criteria?: No System Inflammatory Response Syndrome: Not Applicable Sepsis Protocol: For patient's 13 years and over: Temp is 96.8 and below OR 101 and greater Pulse >90 BPM Resp >20/minute Acutely Altered Mental Status Are patient's symptoms suggestive of a new infection, such as: -Pneumonia -Skin, Soft Tissue -Endocarditis -UTI -Bone, Joint Infection -Implantable Device -Acute Abdominal Infection -Wound Infection -Meningitis -Blood Stream Catheter Infection -Unknown Review of Systems Review Of Systems Constitutional: Reports Malaise and Weakness All Other Systems: Reviewed and Negative [facility] Social History Smoking and tobacco status: Former smoker History of recent travel: No Female Reproductive History Menstrual Hx Hysterectomy: Yes Hx Tubal Ligation: No Physical Exam Physical Exam Appearance: Reports Ill-appearing Critical Care Note Critical Care Note Total Time (mins): 60 Course Course Hematology/Chemistry: 06/03/19 05:40 06/03/19 05:40 Orders, Labs, Meds: Lab Review 06/01/19 06/01/19 06/01/19 12:20 12:30 12:53 WBC 11.28 H RBC 4.35 Hgb 12.4 Hct 38.7 MCV 89.0 MCH 28.5 MCHC 32.0 RDW Coeff of Elie 14.6 Plt Count 204 Immature Gran % (Auto) 0.7 Neut % (Auto) 83.3 H Lymph % (Auto) 6.9 L [place] % (Auto) 8.6 Eos % (Auto) 0.3 Baso % (Auto) 0.2 Immature Gran # (Auto) 0.1 Neut # (Auto) 9.4 H Lymph # (Auto) 0.8 [place] # (Auto) 1.0 Eos # (Auto) 0.0 Baso # (Auto) 0.0 PT INR Puncture Site R brach O2 Saturation 95.0 ABG pH 7.464 H ABG pCO2 40.1 ABG pO2 72.0 L ABG HCO3 28.7 H ABG Total CO2 30 H ABG Base Excess 5 H [place] Test + O2 Delivery Device Nc Oxygen Liter Flow 2.00 Sodium Potassium Chloride Carbon Dioxide Anion Gap BUN Creatinine Estimated GFR (MDRD) BUN/Creatinine Ratio Glucose Calcium Total Bilirubin AST ALT Alkaline Phosphatase Troponin I Total Protein Albumin Globulin Albumin/Globulin Ratio Urine Color Urine Clarity Urine pH Ur Specific [place] Urine Protein Urine Glucose (UA) Urine Ketones Urine Blood Urine Nitrite Urine Bilirubin Urine Urobilinogen Ur Leukocyte Esterase Urine Microscopic RBC Urine Microscopic WBC Ur Squamous Epith Cells Influ A Molecular Assay Positive by naat H Influ B Molecular Assay Negative by naat RSV Antigen Negative by naat 06/01/19 06/01/19 06/01/19 12:53 12:53 14:10 WBC RBC Hgb Hct MCV MCH MCHC RDW Coeff of Elie Plt Count Immature Gran % (Auto) Neut % (Auto) Lymph % (Auto) [place] % (Auto) Eos % (Auto) Baso % (Auto) Immature Gran # (Auto) Neut # (Auto) Lymph # (Auto) [place] # (Auto) Eos # (Auto) Baso # (Auto) PT 29.7 H INR 3.24 Puncture Site O2 Saturation ABG pH ABG pCO2 ABG pO2 ABG HCO3 ABG Total CO2 ABG Base Excess [place] Test O2 Delivery Device Oxygen Liter Flow Sodium 131.9 L Potassium 4.11 Chloride 95.8 L Carbon Dioxide 28.2 Anion Gap 12.01 BUN 18.4 H Creatinine 1.08 Estimated GFR (MDRD) 49.00 BUN/Creatinine Ratio 17.03 Glucose 94.2 Calcium 9.32 Total Bilirubin 0.36 AST 39.2 H ALT 34.3 Alkaline Phosphatase 128.6 Troponin I < 0.012 Total Protein 6.57 Albumin 3.77 Globulin 2.80 Albumin/Globulin Ratio 1.34 Urine Color Yellow Urine Clarity Clear Urine pH 7.0 Ur Specific [place] 1.015 Urine Protein Negative Urine Glucose (UA) Negative Urine Ketones Negative Urine Blood Trace-intact H Urine Nitrite Negative Urine Bilirubin Negative Urine Urobilinogen 0.2 Ur Leukocyte Esterase Negative Urine Microscopic RBC 2-5 Urine Microscopic WBC 0-2 Ur Squamous Epith Cells 0-2 Influ A Molecular Assay Influ B Molecular Assay RSV Antigen Orders Category Date Time Status ADMIT PATIENT INPATIENT .TO [facility] [place] (MONITORED BED) ADMISSION 06/01/19 14:39 Active ABG DRAW REQUEST Stat CARDIO 06/01/19 12:21 Completed EKG-(ED ONLY) Stat CARDIO 06/01/19 12:21 Completed NEBULIZER TREATMENT Stat CARDIO 06/01/19 12:22 Completed TELEMETRY MONITORING TELE CARE 06/01/19 14:40 Active IV [ED IV/MEDIPORT/POWERPORT] .ONCE EMERGENCY 06/01/19 12:21 Active ARTERIAL BLOOD GAS [ABG] Stat LAB 06/01/19 12:20 Completed BLOOD CULTURE Stat LAB 06/01/19 12:53 Results CBC W/ AUTO DIFF Stat LAB 06/01/19 12:53 Completed CMP [COMPREHENSIVE METABOLIC PANEL] Stat LAB 06/01/19 12:53 Completed FLU A & B MOLECULAR [FLU A/B MOLECULAR] Stat LAB 06/01/19 12:30 Completed RSV Stat LAB 06/01/19 12:30 Completed SPUTUM CULTURE Stat LAB 06/01/19 12:21 Results TROPONIN I Stat LAB 06/01/19 12:53 Completed UA [URINALYSIS C & S IF INDICATED] Stat LAB 06/01/19 14:10 Completed 0.9 % Sodium Chloride [Saline Flush] MEDS 06/01/19 12:21 Active 1 syr IVF PRN PRN Acetaminophen [Tylenol] MEDS 06/01/19 12:21 Active 650 mg PO Q4H PRN Budesonide [Pulmicort 0.5 mg/2 ml] MEDS 06/01/19 12:30 Discontinued 0.5 mg NEB ONCE STA Budesonide [Pulmicort 0.5 mg/2 ml] MEDS 06/01/19 21:33 Discontinued 0.5 mg NEB ONCE STA Ceftriaxone/D5w 1 gm Premix [Rocephin 1 gm/50 ml D5w] MEDS 06/01/19 13:45 Discontinued 1 gm in 50 ml IV ONCE Dexamethasone 4 mg/ml Inj [Decadron 4 mg/ml Sdv] MEDS 06/01/19 12:21 Discontinued 4 mg IVP ONCE STA Diphenhydramine Inj [Benadryl] MEDS 06/01/19 14:26 Discontinued 25 mg IVP ONCE STA Ipratropium Geraldine 0.02% Neb [Atrovent 0.02% Neb] MEDS 06/01/19 12:21 Discontinued 2.5 ml NEB ONCE STA Levalbuterol HCl [Xopenex 1.25 mg] MEDS 06/01/19 12:21 Discontinued 1.25 mg NEB ONCE STA Mag-Al Plus//Lidocaine [Gi Cocktail] MEDS 06/01/19 13:45 Discontinued 30 ml PO ONCE STA Sodium Chloride 0.9% [Sodium Chloride] 1,000 ml MEDS 06/01/19 12:21 Discontinued IV BOLUS CHEST, 1V AP ONLY Stat RADS 06/01/19 12:23 Completed Medications Generic Name Dose Route Start Last Admin Trade Name Elisa PRN Reason Stop Dose Admin Acetaminophen 650 mg 06/01/19 12:21 06/01/19 12:42 Tylenol PO 650 mg Q4H PRN Administration Fever >101 Albuterol/Ipratropium 3 ml 06/01/19 20:00 06/03/19 14:09 Duoneb NEB 3 ml RTQID OLVIN Administration Albuterol/Ipratropium 1 spray 06/02/19 13:30 06/03/19 16:52 Combivent Respimat Inhal [place] IH 1 spray QID OLVIN Administration Azithromycin 500 mg 06/02/19 09:00 06/03/19 08:28 Zithromax PO 06/05/19 08:59 500 mg DAILY OLVIN Administration Calcium/Vitamin D 1 each 06/02/19 21:00 06/03/19 08:30 Calcium 500 + Vit D 200 Mg Tablet PO 1 each BID OLVIN Administration Cholecalciferol 2,000 unit 06/03/19 09:00 06/03/19 08:29 Vitamin D PO 2,000 unit DAILY OLVIN Administration Diphenoxylate HCl/Atropine 1 tab 06/02/19 12:54 06/02/19 15:17 Lomotil PO 1 tab BID PRN Administration Diarrhea Hydrocortisone Sodium Succinate 125 mg 06/01/19 21:00 06/03/19 20:10 Solu-Cortef 250 Mg IVP 125 mg Q8HR OLVIN Administration CEFTRIAXONE/D5W 1 GM PREMIX 1 gm in 50 mls @ 75 mls/hr 06/02/19 09:00 06/03/19 08:24 Rocephin 1 Gm/50 Ml D5w IV 06/05/19 08:59 75 mls/hr DAILY OLVIN Administration Lorazepam 0.5 - 1 mg 06/01/19 16:42 06/03/19 08:29 Ativan PO 0.5 mg BID PRN Administration Anxiety Montelukast Sodium 10 mg 06/01/19 21:00 06/02/19 20:40 Singulair PO 10 mg BEDTIME OLVIN Administration Non-Formulary Medication 2 spray 06/02/19 21:00 06/03/19 08:32 Ipratropium Geraldine EDWIN Not Given BID OLVIN Oseltamivir Phosphate 30 mg 06/01/19 15:30 06/03/19 08:29 Tamiflu PO 30 mg Q12HR OLVIN Administration Pantoprazole Sodium 40 mg 06/02/19 06:30 06/03/19 05:45 Protonix PO 40 mg QDAC OLVIN Administration Promethazine HCl/Codeine 5 - 10 ml 06/01/19 16:33 06/03/19 13:11 Phenergan With Codeine 6.25/10 Mg/5 Ml PO 10 ml QID PRN Administration Cough Fluticasone/Salmeterol 1 puff 06/02/19 21:00 06/03/19 08:28 Advair 250-50 Diskus IH 1 puff BID OLVIN Administration Sodium Chloride 1 syr 06/01/19 12:21 06/03/19 13:08 Saline Flush IVF 1 syr PRN PRN Administration To flush IV Sodium Chloride 1 syr 06/02/19 13:00 06/03/19 20:10 Saline Flush IVF 1 syr Q8HR OLVIN Administration Tramadol HCl 50 mg 06/01/19 16:42 06/02/19 20:39 Ultram PO 50 mg BID PRN Administration MODERATE PAIN Warfarin Sodium 4 mg 06/01/19 17:00 06/03/19 16:53 Coumadin PO 4 mg QPM OLVIN Administration Discontinued Medications Generic Name Dose Route Start Last Admin Trade Name Freq PRN Reason Stop Dose Admin Al Hydroxide/Mg Hydroxide 30 ml 06/01/19 13:45 06/01/19 14:20 Gi Cocktail PO 06/01/19 13:46 30 ml ONCE STA Administration Albuterol/Ipratropium 4 spray 06/02/19 13:00 06/02/19 14:33 Combivent Respimat Inhal [place] IH Not Given QID OLVIN Azithromycin 500 mg 06/01/19 14:55 06/01/19 16:28 Zithromax PO 06/01/19 14:56 500 mg ONCE STA Administration Budesonide 0.5 mg 06/01/19 21:33 Pulmicort 0.5 Mg/2 Ml NEB 06/01/19 21:34 ONCE STA Budesonide 0.5 mg 06/01/19 12:30 06/01/19 12:38 Pulmicort 0.5 Mg/2 Ml NEB 06/01/19 12:31 0.5 mg ONCE STA Administration Dexamethasone Sodium Phosphate 4 mg 06/01/19 12:21 06/01/19 12:40 Decadron 4 Mg/Ml Sdv IVP 06/01/19 12:22 4 mg ONCE STA Administration Diphenhydramine HCl 25 mg 06/01/19 14:26 06/01/19 14:30 Benadryl IVP 06/01/19 14:27 25 mg ONCE STA Administration Sodium Chloride 1,000 mls @ 500 mls/hr 06/01/19 12:21 06/01/19 12:40 Sodium Chloride IV 06/01/19 14:20 500 mls/hr BOLUS STA Administration CEFTRIAXONE/D5W 1 GM PREMIX 1 gm in 50 mls @ 75 mls/hr 06/01/19 13:45 06/01/19 14:20 Rocephin 1 Gm/50 Ml D5w IV 06/01/19 14:24 75 mls/hr ONCE STA Administration Sodium Chloride 1,000 mls @ 75 mls/hr 06/01/19 21:00 06/01/19 21:07 Sodium Chloride IV 06/02/19 10:19 75 mls/hr ONCE ONE Administration Ipratropium Geraldine 2.5 ml 06/01/19 12:21 06/01/19 12:32 Atrovent 0.02% [facility] 06/01/19 12:22 2.5 ml ONCE STA Administration Levalbuterol HCl 1.25 mg 06/01/19 12:21 06/01/19 12:29 Xopenex 1.25 Mg NEB 06/01/19 12:22 1.25 mg ONCE STA Administration Vital Signs: Temp Pulse Resp BP Pulse Ox 06/01/19 12:14 99.3 F 120 H 24 127/76 94 L Discharge Plan Discharge Patient Disposition: ADMITTED INPATIENT Discharge Problem: Acute exacerbation of chronic obstructive pulmonary disease, Influenza A with respiratory manifestations, Gastritis ED Provider: SERINA FLORES Condition: Stable Discharge Date/Time: 06/01/19 15:25
[2019-06-01] MEDS ORDERED: PULMICORT 0.5 MG/2 ML NEB STA ×2 (12:30→21:33)
[2019-06-01 12:58] LABS: HEMATOCRIT 38.7 % (37.0-47.0)
--- NOTE | 2019-06-01 13:10 | DI ---
EXAM: Chest one view HISTORY: Dyspnea COMPARISON: 03/29/2019, 03/30/2019 TECHNIQUE: Single view of the chest was performed FINDINGS: Normal heart size. Normal mediastinal contour. Similar emphysematous changes. Right lung calcified granulomas. Similar right mid/upper lung nodular opacity is seen on prior exam. The lung s are clear. No pleural effusion or pneumothorax. No acute abnormalities of the bones. IMPRESSION: 1. No acute cardiopulmonary process. 2. Emphysema. 3. Similar right upper lung nodular opacity is seen on prior exam and probably CT.
[2019-06-01] MEDS ORDERED: ROCEPHIN 1 GM/50 ML D5W 1 GM/50 ML BAG IV STA (13:45)
[2019-06-01] MEDS ORDERED: GI COCKTAIL PO STA (13:45)
[2019-06-01] MEDS ORDERED: BENADRYL IVP STA (14:26)
[2019-06-01] MEDS ORDERED: ZITHROMAX PO STA (14:55)
[2019-06-01] MEDS ORDERED: TAMIFLU PO SCH (15:00)
[2019-06-01 15:53] VITALS: BMI 17.2
[2019-06-01] MEDS: TAMIFLU PO SCH ×2 (16:28→21:00)
[2019-06-01] MEDS: DUONEB NEB SCH (19:10)
[2019-06-01] MEDS ORDERED: ATIVAN ONE (20:07)
[2019-06-01] MEDS: PHENERGAN WITH CODEINE 6.25/10 MG/5 ML PO PRN (20:59)
[2019-06-01] MEDS: ATIVAN PO PRN (20:59)
[2019-06-01] MEDS: SINGULAIR PO SCH (21:00)
[2019-06-01] MEDS: ULTRAM PO PRN (21:00)
[2019-06-01] MEDS ORDERED: SODIUM CHLORIDE 1,000 ML IV ONE (21:00)
[2019-06-01] MEDS: SOLU-CORTEF 250 MG IVP SCH (21:05)
[2019-06-02] MEDS: DUONEB NEB SCH ×4 (04:55→20:07)
[2019-06-02 05:32] LABS: HEMATOCRIT 43.7 % (37.0-47.0)
[2019-06-02] MEDS: PROTONIX PO SCH (05:43)
[2019-06-02] MEDS: SOLU-CORTEF 250 MG IVP SCH ×3 (05:43→20:41)
[2019-06-02] MEDS: PHENERGAN WITH CODEINE 6.25/10 MG/5 ML PO PRN ×3 (05:47→20:42)
[2019-06-02] MEDS: ZITHROMAX PO SCH (08:14)
[2019-06-02] MEDS: ROCEPHIN 1 GM/50 ML D5W 1 GM/50 ML BAG IV SCH (08:14)
[2019-06-02] MEDS: TAMIFLU PO SCH ×2 (08:14→20:38)
[2019-06-02] MEDS ORDERED: COMBIVENT RESPIMAT INHALER IH SCH (13:00)
[2019-06-02] MEDS: COMBIVENT RESPIMAT INHALER IH SCH ×3 (14:32→20:40)
[2019-06-02] MEDS: LOMOTIL PO PRN (15:17)
[2019-06-02] MEDS: ATIVAN PO PRN (20:39)
[2019-06-02] MEDS: ULTRAM PO PRN (20:39)
[2019-06-02] MEDS: CALCIUM 500 + VIT D 200 MG TABLET PO SCH (20:39)
[2019-06-02] MEDS: ADVAIR 250-50 DISKUS IH SCH (20:40)
[2019-06-02] MEDS: SINGULAIR PO SCH (20:40)
[2019-06-02] MEDS: IPRATROPIUM BROMIDE NAS SCH (20:48)
[2019-06-02] MEDS ORDERED: CALCIUM CARBONATE 600 MG PO SCH (21:00)
[2019-06-03] MEDS: DUONEB NEB SCH ×4 (04:33→20:15)
[2019-06-03] MEDS: PHENERGAN WITH CODEINE 6.25/10 MG/5 ML PO PRN ×4 (05:45→23:37)
[2019-06-03] MEDS: PROTONIX PO SCH (05:45)
[2019-06-03] MEDS: SOLU-CORTEF 250 MG IVP SCH ×3 (05:48→20:10)
[2019-06-03 06:10] LABS: HEMATOCRIT 42.3 % (37.0-47.0)
[2019-06-03] MEDS: ROCEPHIN 1 GM/50 ML D5W 1 GM/50 ML BAG IV SCH (08:24)
[2019-06-03] MEDS: ZITHROMAX PO SCH (08:28)
[2019-06-03] MEDS: COMBIVENT RESPIMAT INHALER IH SCH ×4 (08:28→20:11)
[2019-06-03] MEDS: ADVAIR 250-50 DISKUS IH SCH ×2 (08:28→20:11)
[2019-06-03] MEDS: TAMIFLU PO SCH ×2 (08:29→20:11)
[2019-06-03] MEDS: VITAMIN D PO SCH (08:29)
[2019-06-03] MEDS: ATIVAN PO PRN (08:29)
[2019-06-03] MEDS: CALCIUM 500 + VIT D 200 MG TABLET PO SCH ×2 (08:30→20:11)
[2019-06-03] MEDS: IPRATROPIUM BROMIDE NAS SCH ×2 (08:32→20:12)
--- NOTE | 2019-06-03 09:52 | PCM.PROG ---
Attending Provider: ATTENDING PROVIDER: Dr. RAISA RASCON DATE OF SERVICE: 06/03/19 SUBJECTIVE: This 78 year old /WHITE F was hospitalized 06/01/19 with acute bronchitis and Influenza A. Condition has steadily improved. She is coughing much less but hydration status seems improved. Skin turgor is better. REVIEW OF SYSTEMS: CONSTITUTIONAL: No night sweats. No fatigue, malaise, lethargy. No fever or chills. HEENT: Eyes: No visual changes. No eye pain. No eye discharge. ENT: No runny nose. No epistaxis. No sinus pain. No odynophagia. No congestion. RESPIRATORY: Cough and congestion. No hemoptysis. No shortness of breath. CARDIOVASCULAR: No angina symptoms. No CHF symptoms. No atypical chest pain for CAD. No palpitations. No orthopnea.. GASTROINTESTINAL: No abdominal pain. No nausea or vomiting. No diarrhea or constipation. No hematemesis. No hematochezia. GENITOURINARY: No urgency. No frequency. No dysuria. No hematuria. No obstructive symptoms. No discharge. No pain. No significant abnormal bleeding. MUSCULOSKELETAL: No musculoskeletal pain; no joint swelling. NEUROLOGICAL: Awake, mildly drowsy, oriented to time, place and person. No headache. No neck pain. No syncope. No seizures. No dizziness. PSYCHIATRIC: Not anxious. No depression. No suicidal thoughts. No homicidal thoughts. SKIN: No rash. No lesions. No wounds. ENDOCRINE: No unexplained weight loss. No weight gain. HEMATOLOGIC/LYMPHATIC: No anemia. No purpura. No petechiae. No prolonged or excessive bleeding. No palpable lymph nodes. PHYSICAL EXAMINATION: GENERAL: The patient is awake, mildly drowsy, oriented, lying/sitting in bed in no distress. VITAL SIGNS: Temperature 97.8 F, Pulse 103, Respiratory Rate 20, BP 141/90, Pulse Ox 97% HEENT: Head normocephalic, atraumatic. Eyes: Extraocular muscles are intact. Pupils are equal, round and reactive to light and accommodation. Ears: No lesions. Nose appeared normal. Throat: No exudate or erythema. NECK: Supple. No JVD, no carotid bruit. No lymphadenopathy or thyromegaly. LUNGS: Decreased breath sounds with mild wheeze. Percussion note normal. Chest symmetrical. HEART: S1, S2, no S3. No murmurs. No cyanosis or clubbing. No ascites. Pulses: Dorsalis pedis and posterior tibial pulses +1 to +2 both sides. ABDOMEN: Soft. Non-tender. Bowel sounds active. No CVA tenderness. No mass felt. EXTREMITIES: No edema. Full range of motion of all extremities, equal. NEUROLOGIC: No focal deficit. Cranial nerves II through XII are grossly intact. No headache, no double vision or headache. SKIN: Warm and dry. Intact. Turgor-normal. LYMPHATIC: No palpable lymph nodes/no lymphedema. MUSCULOSKELETAL: Normal joints with no swelling. Muscle tone is normal. LAB REVIEW: 06/03/19 05:40 06/03/19 05:40 06/03/19 05:40: PT 23.9 H D, INR 2.57 06/03/19 05:40: Sodium 135.9, Potassium 3.89, Chloride 95.8 L, Carbon Dioxide 31.6 H, Anion Gap 12.39, BUN 21.4 H, Creatinine 0.88, Estimated GFR (MDRD) 62.00, BUN/Creatinine Ratio 24.31, Glucose 98.8, Calcium 10.11, Total Bilirubin 0.34, AST 37.6 H, ALT 32.7, Alkaline Phosphatase 125.6, Total Protein 7.26, [place] min 4.06, Globulin 3.20, Albumin/Globulin Ratio 1.26 06/03/19 05:40: WBC 15.20 H D, RBC 4.70, Hgb 13.2, Hct 42.3, MCV 90.0, MCH 28.1, MCHC 31.2 L, RDW Coeff of Elie 14.6, Plt Count 291 D, Immature Gran % (Auto) 0.9, Neut % (Auto) 84.8 H, Lymph % (Auto) 7.8 L, [place] % (Auto) 6.4, Eos % (Auto) 0.0, Baso % (Auto) 0.1, Immature Gran # (Auto) 0.1, Neut # (Auto) 12.9 H, Lymph # (Auto) 1.2, [place] # (Auto) 1.0, Eos # (Auto) 0.0, Baso # (Auto) 0.0 ASSESSMENT: Please see below. 1. Influenza A. 2. Upper respiratory tract infection. 3. Chronic lung disease. PLAN: 1. Continue steroids. 2. Tamiflu. 3. Nebs. 4. INR is 2.5 which is acceptable. Plan and coordination of the patient's care discussed in the presence of Dental Financial Coordinator and nurse. EDUCATION: Influenza A discussed with its infectivity and precautions. BMI is 17. She is advised to gain weight. Advised to eat with no restrictions. CONDITION: Stable SCRIBED BY: ZO DANG Exceptional Needs Teacher scribed while in presence of service performed by Dr. RAISA RASCON on 06/03/19 ([id number])
--- NOTE | 2019-06-03 13:28 | PN ---
DATE OF SERVICE: 06/02/2019 SUBJECTIVE: 78 year old white male hospitalized with Influenza A and severe chronic lung disease. The patient's wheezing with the chronic congestive cough has improved. The patient is feeling a lot better from flu symptoms. REVIEW OF SYSTEMS: CONSTITUTIONAL: No night sweats. No fatigue, malaise, lethargy. No fever or chills. HEENT: Eyes: No visual changes. No eye pain. No eye discharge. ENT: No runny nose. No epistaxis. No sinus pain. No sore throat. No odynophagia. No congestion. RESPIRATORY: Mild dry cough, no congestion. No hemoptysis. No shortness of breath. CARDIOVASCULAR: No angina symptoms. No CHF symptoms. No atypical chest pain for CAD. No palpitations. No PND. No orthopnea. GASTROINTESTINAL: No abdominal pain. No nausea or vomiting. No diarrhea or constipation. No hematemesis. No hematochezia. Appetite seems to have improved. GENITOURINARY: No urgency. No frequency. No dysuria. No hematuria. No obstructive symptoms. No discharge. No pain. No significant abnormal bleeding. MUSCULOSKELETAL: No musculoskeletal pain; no joint swelling. Achy feeling is a lot better. NEUROLOGICAL: No headache. No neck pain. No syncope. No seizures. No dizziness. PSYCHIATRIC: Not anxious. No depression. No suicidal thoughts. No homicidal thoughts. SKIN: No rash. No lesions. No wounds. ENDOCRINE: No unexplained weight loss. No weight gain. HEMATOLOGIC/LYMPHATIC: No anemia. No purpura. No petechiae. No prolonged or excessive bleeding. No palpable lymph nodes. PHYSICAL EXAMINATION: VITAL SIGNS: Temperature 98, pulse 87, respiratory rate 16, blood pressure 180/82 and pulse ox 100% with 2 liters. HEENT: Head normocephalic, atraumatic. Eyes: Extraocular muscles are intact. Pupils are equal, round and reactive to light and accommodation. Ears: No lesions. Nose appeared normal. Throat: No exudate or erythema. NECK: Supple. No JVD, no carotid bruit. No lymphadenopathy or thyromegaly. LUNGS: Decreased breath sounds with mild wheeze. Clear to auscultation. Percussion note normal. Chest symmetrical. HEART: S1, S2, no S3. No murmurs. No cyanosis or clubbing. No ascites. Pulses: Dorsalis pedis and posterior tibial pulses +1 to +2 bilaterally. ABDOMEN: Soft. Nontender. Bowel sounds active. No CVA tenderness. No mass felt. EXTREMITIES: No edema. Full range of motion of all extremities, equal. NEUROLOGIC: No focal deficit. Cranial nerves II through XII are grossly intact. No headache, no double vision or headache. SKIN: Not dry. Intact. Turgor - normal. LYMPHATIC: No palpable lymph nodes/no lymphedema. MUSCULOSKELETAL: Normal joints with no swelling. Muscle tone is normal. LABS: Hgb 13.6, hct 43, WBC 7,500 normal differential, creatinine 0.7, BUN 16, potassium 4.2, estimated GFR 72. ASSESSMENT: 1. Influenza A 2. Acute bronchitis with pneumonitis 3. Severe chronic lung disease 4. Hypertension, systolic 5. COPD PLAN: 1. Watch this patient for systolic hypertension. At present time she is not on any medications. The patient was labile systolic blood pressure noted. Will monitor it. 2. She is being treated with IV antibiotics, steroids and NEBS 3. Influenza is being treated with Tamiflu 4. The patient is educated about Influenza and infectivity and what precautions to take. CONDITION: Stable TIME SPENT: More than 30 minutes. Plan and coordination of the patient's care discussed in the presence of nurse. ANETA
[2019-06-03] MEDS: COUMADIN PO SCH (16:53)
[2019-06-03] MEDS: SINGULAIR PO SCH (20:12)
[2019-06-04] MEDS: DUONEB NEB SCH ×4 (04:46→19:45)
[2019-06-04] MEDS: PROTONIX PO SCH (05:31)
[2019-06-04] MEDS: SOLU-CORTEF 250 MG IVP SCH ×3 (05:32→20:43)
[2019-06-04 05:58] LABS: HEMATOCRIT 41.6 % (37.0-47.0)
[2019-06-04] MEDS: COMBIVENT RESPIMAT INHALER IH SCH ×4 (09:10→20:43)
[2019-06-04] MEDS: VITAMIN D PO SCH (09:10)
[2019-06-04] MEDS: ADVAIR 250-50 DISKUS IH SCH ×2 (09:10→20:43)
[2019-06-04] MEDS: ZITHROMAX PO SCH (09:11)
[2019-06-04] MEDS: KEFLEX PO SCH ×3 (09:11→20:43)
[2019-06-04] MEDS: CALCIUM 500 + VIT D 200 MG TABLET PO SCH ×2 (09:11→20:44)
[2019-06-04] MEDS: TAMIFLU PO SCH ×2 (09:11→20:52)
[2019-06-04] MEDS: IPRATROPIUM BROMIDE NAS SCH ×2 (09:12→20:51)
--- NOTE | 2019-06-04 10:46 | PCM.PROG ---
Attending Provider: ATTENDING PROVIDER: Dr. RAISA RASCON DATE OF SERVICE: 06/04/19 SUBJECTIVE: This 78 year old /WHITE F was hospitalized 06/01/19 with pneumonitis and influenza A. She has improved in all aspects but weakness still persists. Mild exertion makes her short of breath. She has severe chronic lung disease. REVIEW OF SYSTEMS: CONSTITUTIONAL: No night sweats. No fatigue, malaise, lethargy. No fever or chills. HEENT: Eyes: No visual changes. No eye pain. No eye discharge. ENT: No runny nose. No epistaxis. No sinus pain. No odynophagia. No congestion. RESPIRATORY: No cough, no congestion. No hemoptysis. No shortness of breath. CARDIOVASCULAR: No angina symptoms. No CHF symptoms. No atypical chest pain for CAD. No palpitations. No orthopnea.. GASTROINTESTINAL: No abdominal pain. No nausea or vomiting. No diarrhea or constipation. No hematemesis. No hematochezia. GENITOURINARY: No urgency. No frequency. No dysuria. No hematuria. No obstructive symptoms. No discharge. No pain. No significant abnormal bleeding. MUSCULOSKELETAL: No musculoskeletal pain; no joint swelling. NEUROLOGICAL: Awake, alert, oriented to time, place and person. No headache. No neck pain. No syncope. No seizures. No dizziness. PSYCHIATRIC: Not anxious. No depression. No suicidal thoughts. No homicidal thoughts. SKIN: No rash. No lesions. No wounds. ENDOCRINE: No unexplained weight loss. No weight gain. HEMATOLOGIC/LYMPHATIC: No anemia. No purpura. No petechiae. No prolonged or excessive bleeding. No palpable lymph nodes. PHYSICAL EXAMINATION: GENERAL: The patient is awake, alert and oriented, lying/sitting in bed in no distress. VITAL SIGNS: Temperature 97.6 F, Pulse 82, Respiratory Rate 16, BP 156/75, Pulse Ox 96% HEENT: Head normocephalic, atraumatic. Eyes: Extraocular muscles are intact. Pupils are equal, round and reactive to light and accommodation. Ears: No lesions. Nose appeared normal. Throat: No exudate or erythema. NECK: Supple. No JVD, no carotid bruit. No lymphadenopathy or thyromegaly. LUNGS: Mild expiratory wheeze with good air entry. Percussion note normal. Chest symmetrical. HEART: S1, S2, no S3. No murmurs. No cyanosis or clubbing. No ascites. Pulses: Dorsalis pedis and posterior tibial pulses +1 to +2 both sides. ABDOMEN: Soft. Non-tender. Bowel sounds active. No CVA tenderness. No mass felt. EXTREMITIES: Mild pedal edema. Full range of motion of all extremities, equal. NEUROLOGIC: No focal deficit. Cranial nerves II through XII are grossly intact. No headache, no double vision or headache. SKIN: Warm and dry. Intact. Turgor-normal. LYMPHATIC: No palpable lymph nodes/no lymphedema. MUSCULOSKELETAL: Normal joints with no swelling. Muscle tone is normal. LAB REVIEW: 06/04/19 06:00 06/04/19 05:49 06/04/19 06:00: WBC 13.62 H, RBC 4.66, Hgb 13.1, Hct 41.6, MCV 89.3, MCH 28.1, MCHC 31.5 L, RDW Coeff of Elie 14.7, Plt Count 264, Immature Gran % (Auto) 1.2, Neut % (Auto) 86.5 H, Lymph % (Auto) 7.4 L, [place] % (Auto) 4.8, Eos % (Auto) 0.0, Baso % (Auto) 0.1, Immature Gran # (Auto) 0.2, Neut # (Auto) 11.8 H, Lymph # (Auto) 1.0, [place] # (Auto) 0.7, Eos # (Auto) 0.0, Baso # (Auto) 0.0 06/04/19 05:49: Sodium 139.1, Potassium 3.53, Chloride 101.5, Carbon Dioxide 32.0 H, Anion Gap 9.13, BUN 26.1 H, Creatinine 0.91, Estimated GFR (MDRD) 60.00, BUN/Creatinine Ratio 28.68, Glucose 90.8, Calcium 10.01, Total Bilirubin 0.20, AST 31.1, ALT 28.3, Alkaline Phosphatase 117.3, Total Protein 6.91, Albumin 3.85, Globulin 3.06, Albumin/Globulin Ratio 1.25 06/04/19 05:49: PT 16.8 H D, INR 1.77 ASSESSMENT: Please see below. 1. Influenza A with bronchitis seems to be resolving. 2. Severe chronic lung disease. 3. Atrial fibrillation. PLAN: 1. Continue steroids, antibiotics and nebs. 2. PT to help ambulate. 3. Will likely discharge tomorrow. Plan and coordination of the patient's care discussed in the presence of Driller And Reamer and nurse. CONDITION: Stable SCRIBED BY: ZO DANG Marketing Specialist scribed while in presence of service performed by Dr. RAISA RASCON on 06/04/19 ([id number])
[2019-06-04] MEDS: PHENERGAN WITH CODEINE 6.25/10 MG/5 ML PO PRN ×2 (11:28→20:43)
--- NOTE | 2019-06-04 11:48 | HP ---
DATE OF SERVICE: 06/01/19 HISTORY OF PRESENT ILLNESS: 78-year-old female who came to the ER with severe shortness of breath, chest congestion and fever. PAST MEDICAL HISTORY: COPD, Stage 3 to [address] Peterson every six months Bronchitis Pleuritic chest pain in the left lung Status post left cataract in 06/22/18 Right shoulder injury Cervical radiculopathy Osteopenia receiving Prolia Lung nodule with Dr. Peterson that has since resolved Generalized anxiety disorder History of DVT and PE on Coumadin Polyarthritis History of gout Pulmonary fibrosis PAST SURGICAL HISTORY: Hysterectomy in the REVIEW OF SYSTEMS: CONSTITUTIONAL: Weakness. No night sweats. No fatigue, malaise, lethargy. No fever or chills. HEENT: Eyes: No visual changes. No eye pain. No eye discharge. ENT: No runny nose. No epistaxis. No sinus pain. No sore throat. No odynophagia. No ear pain. No congestion. RESPIRATORY: Cough. No hemoptysis. Shortness of breath. CARDIOVASCULAR: No angina symptoms. No CHF symptoms. No atypical chest pain for CAD. No palpitations. No PND. No orthopnea. GASTROINTESTINAL: No abdominal pain. No nausea or vomiting. No diarrhea or constipation. No hematemesis. No hematochezia. GENITOURINARY: No urgency. No frequency. No dysuria. No hematuria. No obstructive symptoms. No discharge. No pain. No significant abnormal bleeding. MUSCULOSKELETAL: No musculoskeletal pain. No joint swelling. No arthritis. NEUROLOGICAL: No headache. No neck pain. No syncope. No seizures. No dizziness. PSYCHIATRIC: Not anxious. No depression. No suicidal thoughts. No homicidal thoughts. SKIN: No rash. No lesions. No wounds. ENDOCRINE: No unexplained weight loss. No weight gain. HEMATOLOGIC/LYMPHATIC: No anemia. No purpura. No petechiae. No prolonged or excessive bleeding. No palpable lymph nodes. PERSONAL/FAMILY/SOCIAL HISTORY: She is . She quit using tobacco in 2014. She denies any alcohol use. MEDICATIONS: (HOME) Montelukast 10 mg p.o. bedtime Fluticasone propion-salmeterol one inh b.i.d. Pantoprazole 40 mg p.o. q.d a.c. Ipratropium-albuterol 4 gm inh q.i.d. Lorazepam 0.5-1 mg p.o. b.i.d. p.r.n. Tramadol 50 mg one tablet p.o. b.i.d. p.r.n. Albuterol 2.5 mg inh t.i.d. Warfarin 4 mg p.o. q.p.m. Calcium Carbonate 600 mg p.o. b.i.d. Cholecalciferol 2,000 unit p.o. daily Promethazine-Codeine 5-10 mL p.o. b.i.d. Ipratropium bromide two spray intranasal b.i.d. Prednisone 5 mg p.o. daily Cephalexin 500 mg p.o. q.8hr ALLERGIES: CIPROFLOXACIN, HYDROCODONE (GI COCKTAIL) PHYSICAL EXAMINATION: VITAL SIGNS: Temperature 99.3, pulse 120, respirations 24, BP 127/76, pulse ox 94. HEENT: Head normocephalic, atraumatic. Eyes: Extraocular muscles are intact. Pupils are equal, round and reactive to light and accommodation. Ears: No lesions. Nose appeared normal. Throat: No exudate or erythema. NECK: Supple. No JVD, no carotid bruit. No lymphadenopathy or thyromegaly. LUNGS: Decreased breath sounds with mild wheezing. Percussion note normal. Chest symmetrical. HEART: S1, S2, no S3. No murmur. No cyanosis or clubbing. No ascites. Pulses: Dorsalis pedis and posterior tibial pulses +1 to +2 bilaterally. ABDOMEN: Soft. Nontender. Bowel sounds active. No CVA tenderness. No mass felt. EXTREMITIES: No edema. Full range of motion of all extremities, equal. NEUROLOGIC: No focal deficit. Cranial nerves II through XII are grossly intact. No headache, no double vision or headache. SKIN: Not dry. Intact. Turgor - normal. LYMPHATIC: No palpable lymph nodes/no lymphedema. MUSCULOSKELETAL: Normal joints with no swelling. Muscle tone is normal. ASSESSMENT: 1. INFLUENZA A 2. UPPER RESPIRATORY TRACT INFECTION 3. CHRONIC LUNG DISEASE, OXYGEN DEPENDENT 4. FEVER 5. SHORTNESS OF BREATH PLAN: 1. Admit. 2. Routine telemetry. 3. CBC, CMP. 4. INR daily. 5. Continue home medications. 6. 02. 7. Solu-Cortef 125 mg every 8 hours. 8. Duonebs q.6 OLVIN. 9. Tamiflu 30 mg q.12. 10. Phenergan with Codeine 5 to 10 mL p.o. q.i.d. p.r.n. 11. Regular diet. TIME SPENT: More than 70 minutes. MTDD
--- NOTE | 2019-06-04 14:33 | PN ---
DATE OF SERVICE: 06/01/19 SUBJECTIVE: The patient was seen and examined today. The patient was hospitalized Influenza A positive. The patient has cough and congestion with shortness of breath for the past several days, has been mostly sick with flu type of sickness for the past 48 hours. She is dizzy and light-headed. In the emergency room the patient was in mild to moderate distress. She was given a breathing treatment and after that her color and condition improved to some extent. The patient is going to be hospitalized with IV fluids, IV antibiotics, nebs, steroids, Tamiflu. PHYSICAL EXAMINATION: HEENT: Head normocephalic, atraumatic. Eyes: Extraocular muscles are intact. Pupils are equal, round and reactive to light and accommodation. Ears: No lesions. Nose appeared normal. Throat: No exudate or erythema. NECK: Supple. No JVD, no carotid bruit. No lymphadenopathy or thyromegaly. LUNGS: Decreased breath sounds with mild wheeze bilaterally. Good air entry. Clear to auscultation. Percussion note normal. Chest symmetrical. HEART: S1, S2, no S3. No murmurs. No cyanosis or clubbing. No ascites. Pulses: Dorsalis pedis and posterior tibial pulses +1 to +2 bilaterally. ABDOMEN: Soft. Nontender. Bowel sounds active. No CVA tenderness. No mass felt. EXTREMITIES: No edema. Full range of motion of all extremities, equal. NEUROLOGIC: No focal deficit. Cranial nerves II through XII are grossly intact. No headache, no double vision or headache. SKIN: Not dry. Intact. Turgor - normal. LYMPHATIC: No palpable lymph nodes/no lymphedema. MUSCULOSKELETAL: Normal joints with no swelling. Muscle tone is normal. LABS: The patient's oxygen saturation on room air is 90 to 95%. EKG sinus rhythm, no acute changes. Telemetry no arrhythmias of any significance. ASSESSMENT: 1. Influenza A with acute bronchitis, possibile pneumnonitis. 2. History of severe chronic lung disease. PLAN: 1. As mentioned above, give IV fluids, IV antibiotics, IV steroids. 2. Nebs. 3. Tamiflu. TIME SPENT: More than 30 minutes. Plan and coordination of the patient's care discussed in the presence of nurse. ANETA
[2019-06-04] MEDS: COUMADIN PO SCH (17:37)
[2019-06-04] MEDS: SINGULAIR PO SCH (20:43)
[2019-06-04] MEDS: ATIVAN PO PRN (20:51)
[2019-06-04] MEDS: ULTRAM PO PRN (20:52)
[2019-06-05] MEDS: DUONEB NEB SCH ×4 (05:05→19:25)
[2019-06-05] MEDS: PROTONIX PO SCH (05:36)
[2019-06-05] MEDS: KEFLEX PO SCH ×3 (05:36→20:52)
[2019-06-05 05:55] LABS: HEMATOCRIT 38.2 % (37.0-47.0)
[2019-06-05] MEDS: SOLU-CORTEF 250 MG IVP SCH ×3 (06:02→20:52)
[2019-06-05] MEDS: ADVAIR 250-50 DISKUS IH SCH ×2 (08:19→20:54)
[2019-06-05] MEDS: COMBIVENT RESPIMAT INHALER IH SCH ×4 (08:19→20:54)
[2019-06-05] MEDS: CALCIUM 500 + VIT D 200 MG TABLET PO SCH ×2 (08:20→20:53)
[2019-06-05] MEDS: TAMIFLU PO SCH ×2 (08:20→20:53)
[2019-06-05] MEDS: VITAMIN D PO SCH (08:20)
[2019-06-05] MEDS: IPRATROPIUM BROMIDE NAS SCH ×2 (08:22→21:03)
[2019-06-05] MEDS: ATIVAN PO PRN ×2 (10:04→20:53)
[2019-06-05] MEDS: COUMADIN PO SCH (16:38)
[2019-06-05] MEDS: ULTRAM PO PRN (20:52)
[2019-06-05] MEDS: SINGULAIR PO SCH (20:53)
[2019-06-05] MEDS: PHENERGAN WITH CODEINE 6.25/10 MG/5 ML PO PRN (20:53)
[2019-06-06] MEDS: DUONEB NEB SCH ×4 (04:55→19:40)
[2019-06-06 05:00] LABS: HEMATOCRIT 37.9 % (37.0-47.0)
[2019-06-06] MEDS: SOLU-CORTEF 250 MG IVP SCH (05:30)
[2019-06-06] MEDS: PROTONIX PO SCH (05:30)
[2019-06-06] MEDS: KEFLEX PO SCH ×3 (05:30→21:08)
[2019-06-06] MEDS: ADVAIR 250-50 DISKUS IH SCH ×2 (08:20→21:07)
[2019-06-06] MEDS: ATIVAN PO PRN ×2 (08:20→21:09)
[2019-06-06] MEDS: CALCIUM 500 + VIT D 200 MG TABLET PO SCH ×2 (08:20→21:09)
[2019-06-06] MEDS: COMBIVENT RESPIMAT INHALER IH SCH ×4 (08:20→21:07)
[2019-06-06] MEDS: VITAMIN D PO SCH (08:21)
[2019-06-06] MEDS: TAMIFLU PO SCH ×2 (08:21→21:09)
[2019-06-06] MEDS: IPRATROPIUM BROMIDE NAS SCH ×2 (08:48→21:11)
[2019-06-06] MEDS: PHENERGAN WITH CODEINE 6.25/10 MG/5 ML PO PRN ×2 (10:38→21:08)
[2019-06-06] MEDS: HYZAAR 50-12.5 MG TAB PO SCH (13:08)
[2019-06-06] MEDS: CARAFATE PO SCH ×3 (13:12→21:08)
[2019-06-06] MEDS: COUMADIN PO SCH (16:36)
[2019-06-06] MEDS: ULTRAM PO PRN (21:09)
[2019-06-06] MEDS: SINGULAIR PO SCH (21:10)
[2019-06-07 04:31] LABS: HEMATOCRIT 37.4 % (37.0-47.0)
[2019-06-07] MEDS: DUONEB NEB SCH ×4 (05:20→19:30)
[2019-06-07] MEDS: KEFLEX PO SCH (05:47)
[2019-06-07] MEDS: PROTONIX PO SCH (05:47)
[2019-06-07] MEDS: CARAFATE PO SCH ×4 (05:51→20:11)
[2019-06-07] MEDS: PHENERGAN WITH CODEINE 6.25/10 MG/5 ML PO PRN ×2 (05:51→20:11)
[2019-06-07] MEDS: ADVAIR 250-50 DISKUS IH SCH ×2 (08:35→20:11)
[2019-06-07] MEDS: CALCIUM 500 + VIT D 200 MG TABLET PO SCH ×2 (08:36→20:13)
[2019-06-07] MEDS: HYZAAR 50-12.5 MG TAB PO SCH (08:37)
[2019-06-07] MEDS: PREDNISONE PO SCH (08:38)
[2019-06-07] MEDS: IPRATROPIUM BROMIDE NAS SCH ×2 (08:38→20:14)
[2019-06-07] MEDS: TAMIFLU PO SCH ×2 (08:38→20:13)
[2019-06-07] MEDS: VITAMIN D PO SCH (08:39)
[2019-06-07] MEDS: K-DUR PO SCH (08:47)
[2019-06-07] MEDS: COMBIVENT RESPIMAT INHALER IH SCH ×4 (08:47→20:11)
--- NOTE | 2019-06-07 09:32 | PCM.PROG ---
Attending Provider: ATTENDING PROVIDER: Dr. RAISA RASCON DATE OF SERVICE: 06/07/19 SUBJECTIVE: This 78 year old /WHITE F was hospitalized 06/01/19 with Influenza A and acute bronchitis. She is short of breath. REVIEW OF SYSTEMS: CONSTITUTIONAL: No night sweats. No fatigue, malaise, lethargy. No fever or chills. HEENT: Eyes: No visual changes. No eye pain. No eye discharge. ENT: No runny nose. No epistaxis. No sinus pain. No odynophagia. No congestion. RESPIRATORY: No cough, no congestion. No hemoptysis. No shortness of breath. CARDIOVASCULAR: No angina symptoms. No CHF symptoms. No atypical chest pain for CAD. No palpitations. No orthopnea.. GASTROINTESTINAL: No abdominal pain. No nausea or vomiting. No diarrhea or constipation. No hematemesis. No hematochezia. GENITOURINARY: No urgency. No frequency. No dysuria. No hematuria. No obstructive symptoms. No discharge. No pain. No significant abnormal bleeding. MUSCULOSKELETAL: No musculoskeletal pain; no joint swelling. NEUROLOGICAL: Awake, alert, oriented to time, place and person. No headache. No neck pain. No syncope. No seizures. No dizziness. PSYCHIATRIC: Not anxious. No depression. No suicidal thoughts. No homicidal thoughts. SKIN: No rash. No lesions. No wounds. ENDOCRINE: No unexplained weight loss. No weight gain. HEMATOLOGIC/LYMPHATIC: No anemia. No purpura. No petechiae. No prolonged or excessive bleeding. No palpable lymph nodes. PHYSICAL EXAMINATION: GENERAL: The patient is awake, alert and oriented, lying in bed in no distress. VITAL SIGNS: Temperature 97.9 F, Pulse 84, Respiratory Rate 18, BP 149/82, Pulse Ox 95% HEENT: Head normocephalic, atraumatic. Eyes: Extraocular muscles are intact. Pupils are equal, round and reactive to light and accommodation. Ears: No lesions. Nose appeared normal. Throat: No exudate or erythema. NECK: Supple. No JVD, no carotid bruit. No lymphadenopathy or thyromegaly. LUNGS: Decreased breath sounds but clear to auscultation. Percussion note normal. Chest symmetrical. HEART: S1, S2, no S3. No murmurs. No cyanosis or clubbing. No ascites. Pulses: Dorsalis pedis and posterior tibial pulses +1 to +2 both sides. ABDOMEN: Soft. Non-tender. Bowel sounds active. No CVA tenderness. No mass felt. EXTREMITIES: No edema. Full range of motion of all extremities, equal. NEUROLOGIC: No focal deficit. Cranial nerves II through XII are grossly intact. No headache, no double vision or headache. SKIN: Warm and dry. Intact. Turgor-normal. LYMPHATIC: No palpable lymph nodes/no lymphedema. MUSCULOSKELETAL: Normal joints with no swelling. Muscle tone is normal. LAB REVIEW: 06/07/19 04:20 06/07/19 04:20 06/07/19 04:20: PT 33.5 H D, INR 3.68 06/07/19 04:20: WBC 12.37 H, RBC 4.21, Hgb 11.9 L, Hct 37.4, MCV 88.8, MCH 28.3, MCHC 31.8, RDW Coeff of Elie 14.6, Plt Count 257, Immature Gran % (Auto) 1.5, Neut % (Auto) 77.7 H, Lymph % (Auto) 12.0, [place] % (Auto) 8.4, Eos % (Auto) 0.2, Baso % (Auto) 0.2, Immature Gran # (Auto) 0.2, Neut # (Auto) 9.6 H, Lymph # (Auto) 1.5, [place] # (Auto) 1.0, Eos # (Auto) 0.0, Baso # (Auto) 0.0 06/07/19 04:20: Sodium 135.2, Potassium 3.19 L, Chloride 95.0 L, Carbon Dioxide 38.8 H, Anion Gap 4.59, BUN 26.9 H, Creatinine 0.92, Estimated GFR (MDRD) 59.00, BUN/Creatinine Ratio 29.23, Glucose 80.6, Calcium 9.51, Total Bilirubin 0.29, AST 30.1, ALT 22.8, Alkaline Phosphatase 83.2, Total Protein 5.44 L, Albumin 2.98 L, Globulin 2.46, Albumin/Globulin Ratio 1.21 ASSESSMENT: Please see below. 1. Acute bronchitis 2. Influenza A 3. Severe chronic lung disease PLAN: 1. Continue same with steroids, NEBS and antibiotics 2. Evaluate for swing bed for PT/OT 3. K-Tab 20meq PO daily Plan and coordination of the patient's care discussed in the presence of [employer] and nurse. SCRIBED BY: LEE RODRIGUEZ Sales Specialist scribed while in presence of service performed by Dr. RAISA RASCON on 06/07/19 ([id number])
--- NOTE | 2019-06-07 13:50 | RS.PTINEVL ---
Subjective - Patient information Date of Evaluation: 06/07/19 Date of Arrival on Unit: 06/01/19 Admitted From:: Home Diagnosis: Influenza A, upper resp infection Usual Living Arrangement: With Spouse Home Environment: House, Level/No stairs Medical History: COPD, Arthritis (OA, gout) Medical History Comments:: pulmonary fibrosis, cervical radiculopathy, GERD, osteopenia, R shld injury LATEX ALLERGY?: No Surgical History: Hysterectomy Surgical History Comments:: appey Medications: see chart Subjective Information/ Patient Comments:: pt states she is tired and wants to take a nap. States she has been getting up and going to the bathroom on her own. - Level of function Prior to this admission, the patient could do the following:: Independent Selfcare, Independent ADL's, Independent Ambulation Abilities prior to this admission: pt amb independently without AD, independent with all ADL's Current Level of Function: Partially Dependent Current Equipment Used at Home: nebulizer, oxygen, cane, shower chair Pain Assessement - Location chest Description: Aching Effects of Pain: states chest hurts from coughing. Interventions - Objective Patient Orientation: Person, Place, Time, Situation Current Interventions: Oxygen (2 liters) Range of Motion - ROM Right Upper Extremity AROM: WFL's Left Upper Extremity AROM: WFL's Right Lower Extremity AROM: WFL's Left Lower Extremity AROM: WFL's Muscle Strength - Muscle Strength Right Upper Extremity Strength: Mild Weakness (grossly 4/5) Left Upper Extremity Strength: Mild Weakness (grossly 4/5) Right Lower Extremity Strength: Mild Weakness (hip flex 4/5, knee flex/ext 4/5, ankle DF/PF 4+/5) Left Lower Extremity Strength: Mild Weakness (hip flex 4/5, knee flex/ext 4/5, ankle DF/PF 4+/5) Sensation - Sensation Right Upper Extremity Sensation: Intact/Normal Left Upper Extremity Sensation: Intact/Normal Right Lower Extremity Sensation: Intact/Normal Left Lower Extremity Sensation: Intact/Normal Palpation Palpation Findings: None/Normal Balance - Sitting Balance and Reactions Static Sitting Balance: Good Dynamic Sitting Balance: Good - Standing Balance and Reactions Static Standing Balance: Fair Dynamic Standing Balance: Fair - Comments Balance Assessment Comments: pt holds to wall, feel pt would benefit from use of rwx for safety Functional Mobility - Bed Mobility Rolling R/L: Independent Scooting: Independent Supine to Sit: Independent Sit to Supine: Independent - Transfers Sit to Stand: Supervision Stand to Sit: Supervision - Safety Awareness Safety Awareness: Fair MARYJO INDEX SCORE: n/a Ambulation - Ambulation Assistive Device Used: Gait belt Orthotic/Prosthetic Device: No Distance: 25ft Assistance needed with Ambulation: CGA Gait Deviations: Forward posture, Short stride Ambulation Comments: pt limited to amb in room due to isolation Treatment time - Time with patient Length of Evaluation: 19 Total treatment time: 26 Patient Education - Education Patient Education: Home Exercise Program, Education of Plan of Care Teaching Recipient: Patient Teaching Methods: Discussion Comments: discussion regarding safety with transfers Assessment - Assessment Problem List:: Decreased level of function, Requires training/education, Decreased safety/Risk of falls, Weakness Rehab Potential: Fair Candidate for Swing Bed for Therapy Services?: Feel pt would not be candidate for swing bed for therapy due to pt being high functional level. Feel pt would benefit from home health PT for home safety and to increase endurance. Evaluation Complexity: HISTORY: Medium, EXAM OF BODY SYSTEMS: Medium, CLINICAL PRESENTATION: Medium, CLINICAL DECISION MAKING: Medium Patient's Goal(s): go home Short Term Goals GOAL #1: . 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 GOAL #2: . GOAL #3: . Plan Other:: eval only Frequency of Treatment: One time treatment Duration of Treatment: One Time Treatment Anticipated Discharge Destination: Home Treatment Diagnosis (ICD 10 Codes): balance impaired: R 26.81. weakness M62.81 Has the Physician been added for Co-signature?: Yes
--- NOTE | 2019-06-07 14:50 | DI ---
EXAM: Chest two views HISTORY: Shortness of breath FINDINGS: Compared to 06/01/2019. Heart size is within normal limits. Atherosclerotic disease is n oted. Lungs are hyperinflated. Diffuse lucency of the lung zones suggesting possible emphysema. Th ere are scattered calcifications suggesting old granulomatous disease. No definite consolidated pneu monia, vascular congestion, pleural fluid or pneumothorax. IMPRESSION: 1. Findings suggest chronic obstructive pulmonary disease. Correlate clinically. No definite acute process although managing the patient on a clinical basis is recommended.
[2019-06-07] MEDS: ATIVAN PO PRN (20:12)
[2019-06-07] MEDS: SINGULAIR PO SCH (20:13)
[2019-06-07] MEDS: ULTRAM PO PRN (20:13)
[2019-06-08 04:20] LABS: HEMATOCRIT 37.5 % (37.0-47.0)
[2019-06-08] MEDS: DUONEB NEB SCH (04:50)
[2019-06-08] MEDS: PROTONIX PO SCH (05:42)
[2019-06-08] MEDS: CARAFATE PO SCH ×4 (05:42→20:23)
[2019-06-08] MEDS: ADVAIR 250-50 DISKUS IH SCH ×2 (09:20→20:24)
[2019-06-08] MEDS: COMBIVENT RESPIMAT INHALER IH SCH ×4 (09:20→20:24)
[2019-06-08] MEDS: CALCIUM 500 + VIT D 200 MG TABLET PO SCH ×2 (09:21→20:23)
[2019-06-08] MEDS: K-DUR PO SCH (09:21)
[2019-06-08] MEDS: HYZAAR 50-12.5 MG TAB PO SCH (09:21)
[2019-06-08] MEDS: VITAMIN D PO SCH ×2 (09:21→09:36)
[2019-06-08] MEDS: PREDNISONE PO SCH (09:22)
[2019-06-08] MEDS: TAMIFLU PO SCH ×2 (09:22→20:24)
[2019-06-08] MEDS ORDERED: LASIX IVP STA (09:48)
[2019-06-08] MEDS ORDERED: XOPENEX 1.25 MG NEB PRN (09:51)
[2019-06-08] MEDS: COREG PO SCH ×2 (10:45→17:19)
[2019-06-08] MEDS: LEXAPRO PO SCH (10:45)
[2019-06-08] MEDS: XOPENEX 1.25 MG NEB SCH ×3 (11:21→22:50)
--- NOTE | 2019-06-08 14:31 | PN ---
DATE OF SERVICE: 06/05/19 SUBJECTIVE: 78-year-old white female hospitalized with Influenza A, acute bronchitis and severe chronic lung disease. The patient's condition has improved. She is feeling better but still extremely weak on minimal exertion. REVIEW OF SYSTEMS: CONSTITUTIONAL: Weakness has improved. Up and about by herself. No night sweats. No fatigue, malaise, lethargy. No fever or chills. HEENT: Eyes: No visual changes. No eye pain. No eye discharge. ENT: No runny nose. No epistaxis. No sinus pain. No sore throat. No odynophagia. No congestion. RESPIRATORY: Cough is still there but much less. No hemoptysis. No shortness of breath. CARDIOVASCULAR: No angina symptoms. No CHF symptoms. No atypical chest pain for CAD. No palpitations. No PND. No orthopnea. GASTROINTESTINAL: Appetite has improved. No abdominal pain. No nausea or vomiting. No diarrhea or constipation. No hematemesis. No hematochezia. GENITOURINARY: No urgency. No frequency. No dysuria. No hematuria. No obstructive symptoms. No discharge. No pain. No significant abnormal bleeding. MUSCULOSKELETAL: No musculoskeletal pain; no joint swelling. NEUROLOGICAL: No headache. No neck pain. No syncope. No seizures. No dizziness. PSYCHIATRIC: Not anxious. No depression. No suicidal thoughts. No homicidal thoughts. SKIN: No rash. No lesions. No wounds. ENDOCRINE: No unexplained weight loss. No weight gain. HEMATOLOGIC/LYMPHATIC: No anemia. No purpura. No petechiae. No prolonged or excessive bleeding. No palpable lymph nodes. PHYSICAL EXAMINATION: VITAL SIGNS: Temperature 97.6, pulse 99, respiratory rate 22, blood pressure 167/79, pulse ox 98%. HEENT: Head normocephalic, atraumatic. Eyes: Extraocular muscles are intact. Pupils are equal, round and reactive to light and accommodation. Ears: No lesions. Nose appeared normal. Throat: No exudate or erythema. NECK: Supple. No JVD, no carotid bruit. No lymphadenopathy or thyromegaly. LUNGS: Decreased breath sounds but clear to auscultation. Percussion note normal. Chest symmetrical. HEART: S1, S2, no S3. No murmurs. No cyanosis or clubbing. No ascites. Pulses: Dorsalis pedis and posterior tibial pulses +1 to +2 bilaterally. ABDOMEN: Soft. Nontender. Bowel sounds active. No CVA tenderness. No mass felt. EXTREMITIES: No edema. Full range of motion of all extremities, equal. NEUROLOGIC: No focal deficit. Cranial nerves II through XII are grossly intact. No headache, no double vision or headache. SKIN: Not dry. Intact. Turgor - normal. LYMPHATIC: No palpable lymph nodes/no lymphedema. MUSCULOSKELETAL: Normal joints with no swelling. Muscle tone is normal. LABS: Hemoglobin 12.1, hematocrit 38, WBC 11,000, normal differential. Creatinine 0.8, BUN 22, potassium 3.3. ASSESSMENT: 1. INFLUENZA A AND ACUTE BRONCHITIS SEEMS TO BE RESOLVING SLOWLY. PLAN: 1. Encourage the patient to eat. 2. Up and about. 3. Pulmonary rehab discussed, strongly advised. CONDITION: Stable. TIME SPENT: More than 30 minutes. Plan and coordination of the patient's care discussed in the presence of nurse. ANETA
[2019-06-08] MEDS: IPRATROPIUM BROMIDE NAS SCH ×2 (15:00→21:45)
[2019-06-08] MEDS: XANAX PO PRN (23:10)
[2019-06-09] MEDS: XOPENEX 1.25 MG NEB SCH ×4 (04:46→22:48)
[2019-06-09 05:22] LABS: HEMATOCRIT 39.3 % (37.0-47.0)
[2019-06-09] MEDS: CARAFATE PO SCH ×4 (05:53→21:00)
[2019-06-09] MEDS: PROTONIX PO SCH (05:53)
[2019-06-09] MEDS ORDERED: PREDNISONE PO SCH (08:00)
[2019-06-09] MEDS: COMBIVENT RESPIMAT INHALER IH SCH ×4 (08:28→21:00)
[2019-06-09] MEDS: ADVAIR 250-50 DISKUS IH SCH ×2 (08:28→21:00)
[2019-06-09] MEDS: HYZAAR 50-12.5 MG TAB PO SCH (08:29)
[2019-06-09] MEDS: COREG PO SCH ×2 (08:29→16:40)
[2019-06-09] MEDS: IPRATROPIUM BROMIDE NAS SCH ×2 (08:29→20:42)
[2019-06-09] MEDS: K-DUR PO SCH ×4 (08:30→16:40)
[2019-06-09] MEDS: LEXAPRO PO SCH (08:30)
--- NOTE | 2019-06-09 09:19 | PN ---
DATE OF SERVICE: 06/08/2019 SUBJECTIVE: 78 year old white female hospitalized with Influenza A with COPD. This morning the patient is feeling drowsy and more short of breath. The patient's overall condition with oxygen saturation seems to be the same. The patient is running low grade fever. The patient's blood gasses yesterday pO2 70, pCo2 46, pH 7.48 with 95% saturation. The patient has compensated respiratory acidosis. Hgb 11.9, hct 37, WBC 15,000 normal differential,creatinine 0.9, BUN 24, potassium 3.9, Co2 40. REVIEW OF SYSTEMS: CONSTITUTIONAL: No night sweats. Fatigue. No fever or chills. Weakness. HEENT: Eyes: No visual changes. No eye pain. No eye discharge. ENT: No runny nose. No epistaxis. No sinus pain. No sore throat. No odynophagia. No congestion. RESPIRATORY: No cough, no congestion. No hemoptysis. Shortness of breath on minimal exertion. CARDIOVASCULAR: No angina symptoms. No CHF symptoms. No atypical chest pain for CAD. No palpitations. No PND. No orthopnea. GASTROINTESTINAL: No abdominal pain. No nausea or vomiting. No diarrhea or constipation. No hematemesis. No hematochezia. Appetite is not that bad. GENITOURINARY: No urgency. No frequency. No dysuria. No hematuria. No obstructive symptoms. No discharge. No pain. No significant abnormal bleeding. MUSCULOSKELETAL: No musculoskeletal pain; no joint swelling. NEUROLOGICAL: No headache. No neck pain. No syncope. No seizures. No dizziness. PSYCHIATRIC: Not anxious. No depression. No suicidal thoughts. No homicidal thoughts. SKIN: No rash. No lesions. No wounds. ENDOCRINE: No unexplained weight loss. No weight gain. HEMATOLOGIC/LYMPHATIC: No anemia. No purpura. No petechiae. No prolonged or excessive bleeding. No palpable lymph nodes. PHYSICAL EXAMINATION: HEENT: Face looks symmetrical. Head normocephalic, atraumatic. Eyes: Extraocular muscles are intact. Pupils are equal, round and reactive to light and accommodation. Ears: No lesions. Nose appeared normal. Throat: No exudate or erythema. NECK: Supple. No JVD, no carotid bruit. No lymphadenopathy or thyromegaly. LUNGS: Decreased breath sounds. Still good air entry. Clear to auscultation. Percussion note normal. Chest symmetrical. HEART: S1, S2, no S3. No murmurs. No cyanosis or clubbing. No ascites. Pulses: Dorsalis pedis and posterior tibial pulses +1 to +2 bilaterally. ABDOMEN: Soft. Nontender. Bowel sounds active. No CVA tenderness. No mass felt. EXTREMITIES: No edema. Full range of motion of all extremities, equal. NEUROLOGIC: No focal deficit. Cranial nerves II through XII are grossly intact. No headache, no double vision or headache. SKIN: Not dry. Intact. Turgor - normal. LYMPHATIC: No palpable lymph nodes/no lymphedema. MUSCULOSKELETAL: Normal joints with no swelling. Muscle tone is normal. ASSESSMENT: 1. COPD with acute bronchitis with Influenza A. The patient seems to be tiring out. PLAN: 1. Continue to monitor patient's oxygen saturation and CO2 level closely 2. Discontinue Ultram 3. Discontinue Phenergan with Codeine 4. Discontinue Ativan. 5. The patient is to be given Xanax 0.25mg TID PRN for anxiety 6. Discontinue Cholecalciferol, Singulair and DUONEBS 7. We will start the patient on Xopenex 8. Coreg 3.125mg twice a day to be added. 9. Give Lasix 10mg IV 10. The patient had EKG done which showed sinus rhythm with PAC noted with LVH type of problem. The patient is not a candidate for swing bed. 11. Chest x-ray yesterday showed COPD otherwise no infiltrate 12. Discontinue Tamiflu CONDITION: Stable PROGNOSIS: Guarded TIME SPENT: More than 30 minutes. Plan and coordination of the patient's care discussed in the presence of nurse. ANETA
--- NOTE | 2019-06-09 10:48 | DI ---
EXAM: Two views of the chest. History: Short of breath Comparison: Chest radiograph 04/06/2019 Findings: Heart size is normal. Hyperinflation with increase in retrosternal clear space. Atherosc lerotic vascular calcifications. Multiple calcified granulomas are again seen within the thorax. Ri ght lower lobe infiltrate and small right pleural effusion. No pneumothorax. No acute osseous abnor malities. Impression: 1. Right lower lobe infiltrate suspicious for pneumonia. 2. Chronic obstructive pulmonary disease
[2019-06-09] MEDS ORDERED: LEVAQUIN PO STA (11:57)
[2019-06-09] MEDS ORDERED: TORADOL IVP STA ×2 (12:02→12:05)
[2019-06-09] MEDS: OMNICEF PO SCH ×2 (12:36→21:00)
[2019-06-09] MEDS: SOLU-CORTEF 250 MG IVP SCH ×2 (13:33→20:31)
[2019-06-09] MEDS ORDERED: COUMADIN PO STA (17:06)
[2019-06-09] MEDS: COUMADIN PO SCH (17:11)
[2019-06-09] MEDS: TORADOL IVP SCH (20:30)
[2019-06-09] MEDS ORDERED: TORADOL IVP SCH (21:00)
[2019-06-09] MEDS: XANAX PO PRN (21:07)
[2019-06-10] MEDS: XOPENEX 1.25 MG NEB SCH ×4 (05:02→23:03)
[2019-06-10] MEDS: SOLU-CORTEF 250 MG IVP SCH ×3 (05:09→21:04)
[2019-06-10] MEDS: CARAFATE PO SCH ×4 (05:50→21:04)
[2019-06-10] MEDS: PROTONIX PO SCH (05:50)
[2019-06-10 06:04] LABS: HEMATOCRIT 34.9 % (37.0-47.0)
[2019-06-10] MEDS ORDERED: LEVAQUIN PO SCH (06:30)
--- NOTE | 2019-06-10 08:47 | PCM.PROG ---
Attending Provider: ATTENDING PROVIDER: Dr. RAISA RASCON DATE OF SERVICE: 06/10/19 SUBJECTIVE: This 78 year old /WHITE F was hospitalized 06/01/19 with Influenza A. The patient has right lower lobe pneumonia. Her condition has improved. She is feeling better. Blood gasses pH 7.514, pCO2 44.9, pO2 64.0, HCO3 36.1 with oxygen saturation of 94% on 32% of Vapotherm. REVIEW OF SYSTEMS: CONSTITUTIONAL: No night sweats. No fatigue, malaise, lethargy. No fever or chills. HEENT: Eyes: No visual changes. No eye pain. No eye discharge. ENT: No runny nose. No epistaxis. No sinus pain. No odynophagia. No congestion. RESPIRATORY: No cough, no congestion. No hemoptysis. No shortness of breath. CARDIOVASCULAR: No angina symptoms. No CHF symptoms. No atypical chest pain for CAD. No palpitations. No orthopnea.. GASTROINTESTINAL: No abdominal pain. No nausea or vomiting. No diarrhea or constipation. No hematemesis. No hematochezia. Appetite has improved. GENITOURINARY: No urgency. No frequency. No dysuria. No hematuria. No obstructive symptoms. No discharge. No pain. No significant abnormal bleeding. MUSCULOSKELETAL: No musculoskeletal pain; no joint swelling. NEUROLOGICAL: Awake, alert, oriented to time, place and person. No headache. No neck pain. No syncope. No seizures. No dizziness. PSYCHIATRIC: Not anxious. No depression. No suicidal thoughts. No homicidal t houghts. SKIN: No rash. No lesions. No wounds. ENDOCRINE: No unexplained weight loss. No weight gain. HEMATOLOGIC/LYMPHATIC: No anemia. No purpura. No petechiae. No prolonged or excessive bleeding. No palpable lymph nodes. PHYSICAL EXAMINATION: GENERAL: The patient is awake, alert and oriented, lying in bed in no distress. VITAL SIGNS: Temperature 97.7 F, Pulse 77, Respiratory Rate 18, BP 129/76, Pulse Ox 94% HEENT: Head normocephalic, atraumatic. Eyes: Extraocular muscles are intact. Pupils are equal, round and reactive to light and accommodation. Ears: No lesions. Nose appeared normal. Throat: No exudate or erythema. NECK: Supple. No JVD, no carotid bruit. No lymphadenopathy or thyromegaly. LUNGS: Mild expiratory wheeze with good air entry. Right lower lobe dry crepitations. Clear to auscultation. Percussion note normal. Chest symmetrical. HEART: S1, S2, no S3. No murmurs. No cyanosis or clubbing. No ascites. Pulses: Dorsalis pedis and posterior tibial pulses +1 to +2 both sides. ABDOMEN: Soft. Non-tender. Bowel sounds active. No CVA tenderness. No mass felt. EXTREMITIES: No edema. Full range of motion of all extremities, equal. NEUROLOGIC: No focal deficit. Cranial nerves II through XII are grossly intact. No headache, no double vision or headache. SKIN: Warm and dry. Intact. Turgor-normal. LYMPHATIC: No palpable lymph nodes/no lymphedema. MUSCULOSKELETAL: Normal joints with no swelling. Muscle tone is normal. LAB REVIEW: 06/10/19 05:19 06/10/19 05:19 06/10/19 05:19: Sodium 129.7 L, Potassium 4.06, Chloride 90.2 L, Carbon Dioxide 34.9 H, Anion Gap 8.66, BUN 32.8 H, Creatinine 0.95, Estimated GFR (MDRD) 57.00, BUN/Creatinine Ratio 34.52, Glucose 127.6 H, Calcium 9.50, Total Bilirubin 0.40, AST 41.3 H, ALT 35.2 H, Alkaline Phosphatase 173.4 H D, Total Protein 6.19 L, Albumin 3.10 L, Globulin 3.09, Albumin/Globulin Ratio 1.00 06/10/19 05:19: WBC 15.26 H, RBC 4.02 L, Hgb 11.4 L, Hct 34.9 L, MCV 86.8, MCH 28.4, MCHC 32.7, RDW Coeff of Elie 14.1, Plt Count 298, Immature Gran % (Auto) 0.8, Neut % (Auto) 90.1 H, Lymph % (Auto) 5.1 L, [place] % (Auto) 3.9, Eos % (Auto) 0.0, Baso % (Auto) 0.1, Immature Gran # (Auto) 0.1, Neut # (Auto) 13.8 H, Lymph # (Auto) 0.8, [place] # (Auto) 0.6, Eos # (Auto) 0.0, Baso # (Auto) 0.0 02/20/20 05:19: PT 12.2 H, INR 1.26 06/10/19 04:43: Puncture Site Lb, O2 Saturation 94.0 L, ABG pH 7.514 H*, ABG pCO2 44.9, ABG pO2 64.0 L, ABG HCO3 36.1 H, ABG Total CO2 37 H, ABG Base Excess 13 H, [place] Test +, O2 Delivery Device Vapo-therm, FiO2 % 32.0 06/09/19 13:20: Puncture Site Rbrach, O2 Saturation 96.0, ABG pH 7.495 H, ABG pCO2 44.3, ABG pO2 73.0 L, ABG HCO3 34.1 H, ABG Total CO2 35 H, ABG Base Excess 11 H, O2 Delivery Device Vapotherm, FiO2 % 32.0 06/09/19 09:00: Puncture Site R brach, O2 Saturation 88.0 L, ABG pH 7.513 H*, ABG pCO2 43.8, ABG pO2 51.0 L*, ABG HCO3 35.2 H, ABG Total CO2 37 H, ABG Base Excess 12 H, [place] Test +, O2 Delivery Device Nc, Oxygen Liter Flow 2.00 ASSESSMENT: Please see below. 1. Influenza A with COPD 2. Bronchitis with right lower lobe pneumonia. PLAN: 1. Continue Vapotherm 2. Vancomycin 1gram Q 12 hours for several doses. 3. Continue Omnicef 4. We can not swing the patient because she is not considered stable with Vapotherm. Plan and coordination of the patient's care discussed in the presence of Curtain Mender and nurse. SCRIBED BY: LEE RODRIGUEZ Mender Hand scribed while in presence of service performed by Dr. RAISA RASCON on 06/10/19 ([id number])
[2019-06-10] MEDS ORDERED: VANCOMYCIN 1 GM in SODIUM CHLORIDE 250 ML IV SCH (09:00)
[2019-06-10] MEDS: ADVAIR 250-50 DISKUS IH SCH ×2 (09:09→21:05)
[2019-06-10] MEDS: LEXAPRO PO SCH (09:10)
[2019-06-10] MEDS: COMBIVENT RESPIMAT INHALER IH SCH ×4 (09:10→21:05)
[2019-06-10] MEDS: HYZAAR 50-12.5 MG TAB PO SCH (09:11)
[2019-06-10] MEDS: K-DUR PO SCH ×3 (09:11→16:58)
[2019-06-10] MEDS: OMNICEF PO SCH ×2 (09:11→21:04)
[2019-06-10] MEDS: COREG PO SCH ×2 (09:12→16:59)
[2019-06-10] MEDS: TORADOL IVP SCH ×2 (09:14→21:04)
[2019-06-10] MEDS: VANCOMYCIN 1 GM in SODIUM CHLORIDE 250 ML IV SCH (09:14)
[2019-06-10] MEDS: IPRATROPIUM BROMIDE NAS SCH ×2 (09:15→21:28)
--- NOTE | 2019-06-10 11:56 | PN ---
DATE OF SERVICE: 06/09/2019 SUBJECTIVE: 78 year old white female hospitalized with Influenza A and acute bronchitis. The patient's condition seems to have deteriorated. Her blood gasses on 2 to 3 liters shows pO2 53, pCo2 46 with normal pH with compensated respiratory acidosis. The patient is tiring out. Yesterday a lot of medications were changed and she was taken off all medications that would make her drowsy. According to her she is feeling better and slept better. The patient is going to be started on high flow oxygen at 32%. Oxygen saturation has improved to 95% on 2 liters. The saturation had dropped to 88%. The patient says that she is feeling a whole lot better with high flow oxygen. The patient was explained about condition which seems to be deteriorated. Again she refused any intubation or respirator. She does not want any resuscitation. According to her if my time is up I'm ready to go. She is oriented to time, place and person. REVIEW OF SYSTEMS: CONSTITUTIONAL: No night sweats. No fatigue, malaise, lethargy. No fever or chills. Weakness. HEENT: Eyes: No visual changes. No eye pain. No eye discharge. ENT: No runny nose. No epistaxis. No sinus pain. No sore throat. No odynophagia. No congestion. RESPIRATORY: No cough, no congestion. No hemoptysis.Shortness of breath. CARDIOVASCULAR: No angina symptoms. No CHF symptoms. No atypical chest pain for CAD. No palpitations. No PND. No orthopnea. GASTROINTESTINAL: No abdominal pain. No nausea or vomiting. No diarrhea or constipation. No hematemesis. No hematochezia. GENITOURINARY: No urgency. No frequency. No dysuria. No hematuria. No obstructive symptoms. No discharge. No pain. No significant abnormal bleeding. MUSCULOSKELETAL: No musculoskeletal pain; no joint swelling. NEUROLOGICAL: No headache. No neck pain. No syncope. No seizures. No dizziness. PSYCHIATRIC: Not anxious. No depression. No suicidal thoughts. No homicidal thoughts. SKIN: No rash. No lesions. No wounds. ENDOCRINE: No unexplained weight loss. No weight gain. HEMATOLOGIC/LYMPHATIC: No anemia. No purpura. No petechiae. No prolonged or excessive bleeding. No palpable lymph nodes. PHYSICAL EXAMINATION: VITAL SIGNS: Temperature 98.2, pulse 97, respiratory rate 20, blood pressure 112/72 and pulse ox 90% on 2 liters. HEENT: Head normocephalic, atraumatic. Eyes: Extraocular muscles are intact. Pupils are equal, round and reactive to light and accommodation. Ears: No lesions. Nose appeared normal. Throat: No exudate or erythema. NECK: Supple. No JVD, no carotid bruit. No lymphadenopathy or thyromegaly. LUNGS: Decreased breath sounds. Clear to auscultation. Percussion note normal. Chest symmetrical. HEART: S1, S2, no S3. No murmurs. No cyanosis or clubbing. No ascites. Pulses: Dorsalis pedis and posterior tibial pulses +1 to +2 bilaterally. ABDOMEN: Soft. Nontender. Bowel sounds active. No CVA tenderness. No mass felt. EXTREMITIES: No edema. Full range of motion of all extremities, equal. NEUROLOGIC: No focal deficit. Cranial nerves II through XII are grossly intact. No headache, no double vision or headache. SKIN: Not dry. Intact. Turgor - normal. LYMPHATIC: No palpable lymph nodes/no lymphedema. MUSCULOSKELETAL: Normal joints with no swelling. Muscle tone is normal. LABS: Hgb 12.4, hct 39, WBC 19,000 normal differential, creatinine 1, BUN 23, potassium 3.1 PLAN: 1. Given 125mg IV Solu-Cortef now and Q 8 hours 2. Levaquin 500mg PO daily 3. New medication also Toradol 15mg IV now and at 5pm and twice a day as needed. 4. Continue NEBS treatments 5. We will monitor the patient's potassium CONDITION: Stable. PROGNOSIS: Guarded. TIME SPENT: More than 30 minutes. Plan and coordination of the patient's care discussed in the presence of nurse. ANETA
--- NOTE | 2019-06-10 14:50 | PN ---
DATE OF SERVICE: 06/06/2019 SUBJECTIVE: 78 year old white female hospitalized with pneumonitis with influenza A. The patient is still coughing extremely fatigue and tired. The patient's doesn't want to go home because she is extremely weak, fatigue. The was present in the room, thinks the same way. REVIEW OF SYSTEMS: CONSTITUTIONAL: No night sweats. No fatigue, malaise, lethargy. No fever or chills. HEENT: Eyes: No visual changes. No eye pain. No eye discharge. ENT: No runny nose. No epistaxis. No sinus pain. No sore throat. No odynophagia. No congestion. RESPIRATORY: No cough, no congestion. No hemoptysis. No shortness of breath. CARDIOVASCULAR: No angina symptoms. No CHF symptoms. No atypical chest pain for CAD. No palpitations. No PND. No orthopnea. GASTROINTESTINAL: No abdominal pain. No nausea or vomiting. No diarrhea or constipation. No hematemesis. No hematochezia. GENITOURINARY: No urgency. No frequency. No dysuria. No hematuria. No obstructive symptoms. No discharge. No pain. No significant abnormal bleeding. MUSCULOSKELETAL: No musculoskeletal pain; no joint swelling. NEUROLOGICAL: No headache. No neck pain. No syncope. No seizures. No dizziness. PSYCHIATRIC: Not anxious. No depression. No suicidal thoughts. No homicidal thoughts. SKIN: No rash. No lesions. No wounds. ENDOCRINE: No unexplained weight loss. No weight gain. HEMATOLOGIC/LYMPHATIC: No anemia. No purpura. No petechiae. No prolonged or excessive bleeding. No palpable lymph nodes. PHYSICAL EXAMINATION: VITAL SIGNS: Temperature 97.6, pulse 78, respiratory rate 20, blood pressure 170/80 and pulse 99%. HEENT: Head normocephalic, atraumatic. Eyes: Extraocular muscles are intact. Pupils are equal, round and reactive to light and accommodation. Ears: No lesions. Nose appeared normal. Throat: No exudate or erythema. NECK: Supple. No JVD, no carotid bruit. No lymphadenopathy or thyromegaly. LUNGS: Decreased breath sounds with mild wheeze. Clear to auscultation. Percussion note normal. Chest symmetrical. HEART: S1, S2, no S3. No murmurs. No cyanosis or clubbing. No ascites. Pulses: Dorsalis pedis and posterior tibial pulses +1 to +2 bilaterally. ABDOMEN: Soft. Nontender. Bowel sounds active. No CVA tenderness. No mass felt. EXTREMITIES: No edema. Full range of motion of all extremities, equal. NEUROLOGIC: No focal deficit. Cranial nerves II through XII are grossly intact. No headache, no double vision or headache. SKIN: Not dry. Intact. Turgor - normal. LYMPHATIC: No palpable lymph nodes/no lymphedema. MUSCULOSKELETAL: Normal joints with no swelling. Muscle tone is normal. ASSESSMENT: 1. Pneumonitis with Influenza A is resolving 2. Severe Chronic lung disease 3. Hypertension PLAN: 1. Discontinue Solu-Cortef 2. Prednisone 10mg two tablet daily 3. Hyzaar 50/12.5mg PO now and QAM 4. DASH diet discussed and advised to cut down on salt intake. TIME SPENT: More than 30 minutes. Plan and coordination of the patient's care discussed in the presence of nurse. ANETA
[2019-06-10] MEDS ORDERED: COUMADIN ONE ×2 (16:40)
[2019-06-10] MEDS ORDERED: COUMADIN PO ONE ×2 (17:00)
[2019-06-10] MEDS: COUMADIN PO SCH (17:17)
[2019-06-10] MEDS ORDERED: DUONEB NEB STA (18:57)
[2019-06-10] MEDS: XANAX PO PRN (19:03)
[2019-06-10] MEDS: LOMOTIL PO PRN (21:04)
[2019-06-11] MEDS: XOPENEX 1.25 MG NEB SCH ×4 (04:52→23:01)
[2019-06-11 05:21] LABS: HEMATOCRIT 34.1 % (37.0-47.0)
[2019-06-11] MEDS: CARAFATE PO SCH ×4 (05:56→20:37)
[2019-06-11] MEDS: PROTONIX PO SCH (05:56)
[2019-06-11] MEDS: SOLU-CORTEF 250 MG IVP SCH ×3 (05:56→21:40)
[2019-06-11] MEDS: VANCOMYCIN 1 GM in SODIUM CHLORIDE 250 ML IV SCH (08:55)
[2019-06-11] MEDS: XANAX PO PRN ×3 (09:05→20:37)
[2019-06-11] MEDS: COREG PO SCH ×2 (09:05→17:42)
[2019-06-11] MEDS: LEXAPRO PO SCH (09:06)
[2019-06-11] MEDS: OMNICEF PO SCH ×2 (09:06→20:36)
[2019-06-11] MEDS: HYZAAR 50-12.5 MG TAB PO SCH (09:06)
[2019-06-11] MEDS: K-DUR PO SCH ×3 (09:06→17:42)
[2019-06-11] MEDS: ADVAIR 250-50 DISKUS IH SCH ×2 (09:07→20:37)
[2019-06-11] MEDS: COMBIVENT RESPIMAT INHALER IH SCH ×4 (09:07→20:37)
[2019-06-11] MEDS: IPRATROPIUM BROMIDE NAS SCH ×2 (09:08→20:38)
--- NOTE | 2019-06-11 09:58 | PCM.PROG ---
Attending Provider: ATTENDING PROVIDER: Dr. RAISA RASCON DATE OF SERVICE: 06/11/19 SUBJECTIVE: This 78 year old /WHITE F was hospitalized 06/01/19 with Influenza A and possible right lower lobe pneumonia. The patient's condition has improved clinically. She looks a lot better. Arterial blood gasses with pH 7.495, pCO2 39.4, pO2 64, HCO3 30.3 on 32% Vapotherm. She is talking in full sentences. Ap petite has improved some. REVIEW OF SYSTEMS: CONSTITUTIONAL: No night sweats. No fatigue, malaise, lethargy. No fever or chills. HEENT: Eyes: No visual changes. No eye pain. No eye discharge. ENT: No runny nose. No epistaxis. No sinus pain. No odynophagia. No congestion. RESPIRATORY: Mild cough, no congestion. No hemoptysis. No shortness of breath. CARDIOVASCULAR: No angina symptoms. No CHF symptoms. No atypical chest pain for CAD. No palpitations. No orthopnea.. GASTROINTESTINAL: No abdominal pain. No nausea or vomiting. No diarrhea or constipation. No hematemesis. No hematochezia. GENITOURINARY: No urgency. No frequency. No dysuria. No hematuria. No obstructive symptoms. No discharge. No pain. No significant abnormal bleeding. MUSCULOSKELETAL: No musculoskeletal pain; no joint swelling. NEUROLOGICAL: Awake, alert, oriented to time, place and person. No headache. No neck pain. No syncope. No seizures. No dizziness. PSYCHIATRIC: Not anxious. No depression. No suicidal thoughts. No homicidal thoughts. SKIN: No rash. No lesions. No wounds. ENDOCRINE: No unexplained weight loss. No weight gain. HEMATOLOGIC/LYMPHATIC: No anemia. No purpura. No petechiae. No prolonged or excessive bleeding. No palpable lymph nodes. PHYSICAL EXAMINATION: GENERAL: The patient is awake, alert and oriented, sitting in bed in no distress. VITAL SIGNS: Temperature 98.1 F, Pulse 75, Respiratory Rate 20, BP 134/66, Pulse Ox 97% HEENT: Head normocephalic, atraumatic. Eyes: Extraocular muscles are intact. Pupils are equal, round and reactive to light and accommodation. Ears: No lesions. Nose appeared normal. Throat: No exudate or erythema. NECK: Supple. No JVD, no carotid bruit. No lymphadenopathy or thyromegaly. LUNGS: Decreased breath sounds but better air entry then last couple of days. Clear to auscultation. Percussion note normal. Chest symmetrical. HEART: S1, S2, no S3. No murmurs. No cyanosis or clubbing. No ascites. Pulses: Dorsalis pedis and posterior tibial pulses +1 to +2 both sides. ABDOMEN: Soft. Non-tender. Bowel sounds active. No CVA tenderness. No mass felt. EXTREMITIES: No edema. Full range of motion of all extremities, equal. NEUROLOGIC: No focal deficit. Cranial nerves II through XII are grossly intact. No headache, no double vision or headache. SKIN: Warm and dry. Intact. Turgor-normal. LYMPHATIC: No palpable lymph nodes/no lymphedema. MUSCULOSKELETAL: Normal joints with no swelling. Muscle tone is normal. LAB REVIEW: 06/11/19 04:53 06/11/19 04:53 06/11/19 06:00: Puncture Site R brach, O2 Saturation 94.0 L, ABG pH 7.495 H, ABG pCO2 39.4, ABG pO2 64.0 L, ABG HCO3 30.3 H, ABG Total CO2 31 H, ABG Base Excess 7 H, [place] Test +, O2 Delivery Device Vapotherm, FiO2 % 32.0 06/11/19 04:53: PT 19.7 H D, INR 2.10 06/11/19 04:53: Sodium 128.9 L, Potassium 4.75, Chloride 93.5 L, Carbon Dioxide 34.3 H, Anion Gap 5.85, BUN 34.9 H, Creatinine 0.99, Estimated GFR (MDRD) 55.00, BUN/Creatinine Ratio 35.25, Glucose 111.0 H, Calcium 9.55, Total Bilirubin 0.27, AST 36.9 H, ALT 34.6, Alkaline Phosphatase 170.6 H, Total Protein 5.99 L, Albumin 3.03 L, Globulin 2.96, Albumin/Globulin Ratio 1.02 06/11/19 04:53: WBC 15.52 H, RBC 3.93 L, Hgb 11.1 L, Hct 34.1 L, MCV 86.8, MCH 28.2, MCHC 32.6, RDW Coeff of Elie 14.0, Plt Count 333, Immature Gran % (Auto) 0.9, Neut % (Auto) 90.2 H, Lymph % (Auto) 4.8 L, [place] % (Auto) 4.0, Eos % (Auto) 0.0, Baso % (Auto) 0.1, Immature Gran # (Auto) 0.1, Neut # (Auto) 14.0 H, Lymph # (Auto) 0.8, [place] # (Auto) 0.6, Eos # (Auto) 0.0, Baso # (Auto) 0.0 ASSESSMENT: Please see below. 1. Pneumonia seems to be improving clinically. Arterial blood gasses are stable. PLAN: 1. Continue Vapotherm with 32% 2. IV steroids, antibiotics and NEBS Plan and coordination of the patient's care discussed in the presence of Rn Hemodialysis and nurse. CONDITION: Stable. SCRIBED BY: Luis REDD scribed while in presence of service performed by Dr. RAISA RASCON on 06/11/19 ([id number])
[2019-06-11] MEDS: TORADOL IVP SCH ×2 (10:10→21:39)
[2019-06-11] MEDS: COUMADIN PO SCH (17:43)
[2019-06-12] MEDS: XOPENEX 1.25 MG NEB SCH ×4 (04:53→22:28)
[2019-06-12 05:51] LABS: HEMATOCRIT 34.4 % (37.0-47.0)
[2019-06-12] MEDS: CARAFATE PO SCH ×4 (06:25→20:54)
[2019-06-12] MEDS: PROTONIX PO SCH (06:25)
[2019-06-12] MEDS: SOLU-CORTEF 250 MG IVP SCH ×3 (06:26→20:54)
[2019-06-12] MEDS: ADVAIR 250-50 DISKUS IH SCH ×2 (08:21→20:53)
[2019-06-12] MEDS: VANCOMYCIN 1 GM in SODIUM CHLORIDE 250 ML IV SCH (08:21)
[2019-06-12] MEDS: COMBIVENT RESPIMAT INHALER IH SCH ×4 (08:21→20:53)
[2019-06-12] MEDS: K-DUR PO SCH ×3 (08:23→17:10)
[2019-06-12] MEDS: COREG PO SCH ×2 (08:23→17:10)
[2019-06-12] MEDS: HYZAAR 50-12.5 MG TAB PO SCH (08:23)
[2019-06-12] MEDS: LEXAPRO PO SCH (08:23)
[2019-06-12] MEDS: OMNICEF PO SCH ×2 (08:23→20:54)
[2019-06-12] MEDS: TORADOL IVP SCH ×2 (08:23→20:54)
[2019-06-12] MEDS: IPRATROPIUM BROMIDE NAS SCH ×2 (08:24→20:58)
[2019-06-12] MEDS: XANAX PO PRN ×3 (08:33→20:54)
[2019-06-12] MEDS ORDERED: OMNICEF PO SCH (21:00)
[2019-06-13 04:24] LABS: HEMATOCRIT 32.5 % (37.0-47.0)
[2019-06-13] MEDS: XOPENEX 1.25 MG NEB SCH ×4 (04:28→21:10)
[2019-06-13] MEDS: PROTONIX PO SCH (05:55)
[2019-06-13] MEDS: CARAFATE PO SCH ×4 (05:55→20:01)
[2019-06-13] MEDS: SOLU-CORTEF 250 MG IVP SCH ×3 (05:55→20:24)
[2019-06-13] MEDS: TORADOL IVP SCH ×2 (09:30→20:24)
[2019-06-13] MEDS: ADVAIR 250-50 DISKUS IH SCH ×2 (09:32→20:01)
[2019-06-13] MEDS: COMBIVENT RESPIMAT INHALER IH SCH ×4 (09:32→20:01)
[2019-06-13] MEDS: LEXAPRO PO SCH (09:33)
[2019-06-13] MEDS: K-DUR PO SCH ×3 (09:33→16:55)
[2019-06-13] MEDS: HYZAAR 50-12.5 MG TAB PO SCH (09:33)
[2019-06-13] MEDS: XANAX PO PRN ×3 (09:33→20:30)
[2019-06-13] MEDS: COREG PO SCH ×2 (09:33→16:55)
[2019-06-13] MEDS: OMNICEF PO SCH ×2 (09:34→20:01)
[2019-06-13] MEDS: VANCOMYCIN 1 GM in SODIUM CHLORIDE 250 ML IV SCH (09:41)
[2019-06-13] MEDS: IPRATROPIUM BROMIDE NAS SCH ×2 (09:46→20:02)
[2019-06-13] MEDS ORDERED: DUONEB NEB STA (22:23)
[2019-06-13] MEDS ORDERED: MORPHINE 2 MG/ML SYRINGE IVP STA (22:50)
[2019-06-14] MEDS: XOPENEX 1.25 MG NEB SCH ×4 (04:40→22:57)
[2019-06-14 05:06] LABS: HEMATOCRIT 33.9 % (37.0-47.0)
[2019-06-14] MEDS: PROTONIX PO SCH (06:06)
[2019-06-14] MEDS: CARAFATE PO SCH ×4 (06:06→20:47)
[2019-06-14] MEDS: SOLU-CORTEF 250 MG IVP SCH ×3 (06:13→20:13)
[2019-06-14] MEDS ORDERED: LASIX IVP STA (07:58)
[2019-06-14] MEDS: OMNICEF PO SCH ×2 (08:17→20:49)
[2019-06-14] MEDS: K-DUR PO SCH ×3 (08:17→17:18)
[2019-06-14] MEDS: LEXAPRO PO SCH (08:17)
[2019-06-14] MEDS: HYZAAR 50-12.5 MG TAB PO SCH (08:17)
[2019-06-14] MEDS: COMBIVENT RESPIMAT INHALER IH SCH ×4 (08:18→20:47)
[2019-06-14] MEDS: ADVAIR 250-50 DISKUS IH SCH ×2 (08:18→20:47)
[2019-06-14] MEDS: COREG PO SCH ×2 (08:18→17:19)
[2019-06-14] MEDS: TORADOL IVP SCH ×2 (08:18→20:13)
[2019-06-14] MEDS: XANAX PO PRN ×2 (08:27→20:49)
[2019-06-14] MEDS: MUCINEX PO SCH ×2 (08:27→20:48)
--- NOTE | 2019-06-14 08:33 | PCM.PROG ---
Attending Provider: ATTENDING PROVIDER: Dr. RAISA RASCON DATE OF SERVICE: 06/14/19 SUBJECTIVE: This 78 year old /WHITE F was hospitalized 06/01/19 with influenza A. The patient now has developed right lower lobe pneumonia. Condition from yesterday to this a.m. seems to have deteriorated some with more congestion, loose cough on Omnicef and Solu-Cortef. Will add Bactrim. Both daughters present in the room. Again, POA is in the room and discussed DNR. The patient continues to be DNR. REVIEW OF SYSTEMS: CONSTITUTIONAL: No night sweats. No fatigue, malaise, lethargy. No fever or chills. HEENT: Eyes: No visual changes. No eye pain. No eye discharge. ENT: No runny no se. No epistaxis. No sinus pain. No odynophagia. No congestion. RESPIRATORY: Loose cough with congestion. No hemoptysis. No shortness of breath. CARDIOVASCULAR: No angina symptoms. No CHF symptoms. No atypical chest pain for CAD. No palpitations. No orthopnea.. GASTROINTESTINAL: No abdominal pain. No nausea or vomiting. No diarrhea or constipation. No hematemesis. No hematochezia. GENITOURINARY: No urgency. No frequency. No dysuria. No hematuria. No obstructive symptoms. No discharge. No pain. No significant abnormal bleeding. MUSCULOSKELETAL: No musculoskeletal pain; no joint swelling. NEUROLOGICAL: Awake, alert, oriented to time, place and person. No headache. No neck pain. No syncope. No seizures. No dizziness. PSYCHIATRIC: Not anxious. No depression. No suicidal thoughts. No homicidal thoughts. SKIN: No rash. No lesions. No wounds. ENDOCRINE: No unexplained weight loss. No weight gain. HEMATOLOGIC/LYMPHATIC: No anemia. No purpura. No petechiae. No prolonged or excessive bleeding. No palpable lymph nodes. PHYSICAL EXAMINATION: GENERAL: The patient is awake, alert and oriented, lying/sitting in bed in no distress. VITAL SIGNS: Temperature 97.8 F, Pulse 80, Respiratory Rate 16, BP 149/72, Pulse Ox 94% HEENT: Head normocephalic, atraumatic. Eyes: Extraocular muscles are intact. Pupils are equal, round and reactive to light and accommodation. Ears: No lesions. Nose appeared normal. Throat: No exudate or erythema. NECK: Supple. No JVD, no carotid bruit. No lymphadenopathy or thyromegaly. LUNGS: Decreased breath sounds with mild wheeze. Percussion note normal. Chest symmetrical. HEART: S1, S2, no S3. No murmurs. No cyanosis or clubbing. No ascites. Pulses: Dorsalis pedis and posterior tibial pulses +1 to +2 both sides. ABDOMEN: Soft. Non-tender. Bowel sounds active. No CVA tenderness. No mass felt. EXTREMITIES: No edema. Full range of motion of all extremities, equal. NEUROLOGIC: No focal deficit. Cranial nerves II through XII are grossly intact. No headache, no double vision or headache. SKIN: Warm and dry. Intact. Turgor-normal. LYMPHATIC: No palpable lymph nodes/no lymphedema. MUSCULOSKELETAL: Normal joints with no swelling. Muscle tone is normal. LAB REVIEW: 06/14/19 04:42 06/14/19 04:42 06/14/19 04:42: PT 21.2 H, INR 2.26 06/14/19 04:42: Sodium 132.5 L, Potassium 4.11, Chloride 95.3 L, Carbon Dioxide 32.9 H, Anion Gap 8.41, BUN 29.6 H, Creatinine 0.80, Estimated GFR (MDRD) 70.00, BUN/Creatinine Ratio 37.00, Glucose 108.8 H, Calcium 9.17, Total Bilirubin 0.26, AST 40.9 H, ALT 32.9, Alkaline Phosphatase 146.3 H, Total Protein 5.83 L, Albumin 3.02 L, Globulin 2.81, Albumin/Globulin Ratio 1.07 06/14/19 04:42: WBC 15.57 H, RBC 3.87 L, Hgb 11.1 L, Hct 33.9 L, MCV 87.6, MCH 28.7, MCHC 32.7, RDW Coeff of Elie 14.4, Plt Count 328, Immature Gran % (Auto) 1.0, Neut % (Auto) 90.6 H, Lymph % (Auto) 4.8 L, [place] % (Auto) 3.5, Eos % (Auto) 0.0, Baso % (Auto) 0.1, Immature Gran # (Auto) 0.2, Neut # (Auto) 14.1 H, Lymph # (Auto) 0.8, [place] # (Auto) 0.5, Eos # (Auto) 0.0, Baso # (Auto) 0.0 06/13/19 08:15: Vancomycin Trough 7.188 L ASSESSMENT: Please see below. 1. Influenza A. 2. Right lower lobe pneumonia. 3. Pulmonary congestion. PLAN: 1. Add Septra to Omnicef. 2. Continue steroids and rest of medications. 3. Lasix 20 mg IV. 4. ABGs. Plan and coordination of the patient's care discussed in the presence of [facility] Director and nurse. PROGNOSIS: GUARDED SCRIBED BY: ZO DANG Electronic Publisher scribed while in presence of service performed by Dr. RAISA RASCON on 06/14/19 ([id number])
[2019-06-14] MEDS: IPRATROPIUM BROMIDE NAS SCH ×2 (08:35→20:49)
[2019-06-14] MEDS: BACTRIM DS 800/160 MG PO SCH ×2 (08:38→20:48)
--- NOTE | 2019-06-14 11:05 | PN ---
DATE OF SERVICE: 06/13/2019 SUBJECTIVE: 78 year old white female hospitalized with influenza A and developed pneumonia right lower lobe. The patient's condition now seems to be improving eventually. The patient's ABG pO2 72,pCo2 40, pH 7.4 with oxygen saturation of 94% with 2 liters. The patient is off high flow oxygen. REVIEW OF SYSTEMS: CONSTITUTIONAL: No night sweats. No fatigue, malaise, lethargy. No fever or chills. HEENT: Eyes: No visual changes. No eye pain. No eye discharge. ENT: No runny nose. No epistaxis. No sinus pain. No sore throat. No odynophagia. No congestion. RESPIRATORY: No cough, no congestion. No hemoptysis. Shortness of breath on exertion. CARDIOVASCULAR: No angina symptoms. No CHF symptoms. No atypical chest pain for CAD. No palpitations. No PND. No orthopnea. GASTROINTESTINAL: No abdominal pain. No nausea or vomiting. No diarrhea or constipation. No hematemesis. No hematochezia. GENITOURINARY: No urgency. No frequency. No dysuria. No hematuria. No obstructive symptoms. No discharge. No pain. No significant abnormal bleeding. MUSCULOSKELETAL: No musculoskeletal pain; no joint swelling. NEUROLOGICAL: No headache. No neck pain. No syncope. No seizures. No dizziness. PSYCHIATRIC: Not anxious. No depression. No suicidal thoughts. No homicidal thoughts. SKIN: No rash. No lesions. No wounds. ENDOCRINE: No unexplained weight loss. No weight gain. HEMATOLOGIC/LYMPHATIC: No anemia. No purpura. No petechiae. No prolonged or excessive bleeding. No palpable lymph nodes. PHYSICAL EXAMINATION: VITAL SIGNS: Temperature 99, pulse 74, respiratory rate 18, blood pressure 145/72 and pulse ox 94% on 2 liters. HEENT: Head normocephalic, atraumatic. Eyes: Extraocular muscles are intact. Pupils are equal, round and reactive to light and accommodation. Ears: No lesions. Nose appeared normal. Throat: No exudate or erythema. NECK: Supple. No JVD, no carotid bruit. No lymphadenopathy or thyromegaly. LUNGS: Decreased breath sounds but clear to auscultation. Percussion note normal. Chest symmetrical. HEART: S1, S2, no S3. No murmurs. No cyanosis or clubbing. No ascites. Pulses: Dorsalis pedis and posterior tibial pulses +1 to +2 bilaterally. ABDOMEN: Soft. Nontender. Bowel sounds active. No CVA tenderness. No mass felt. EXTREMITIES: No edema. Full range of motion of all extremities, equal. NEUROLOGIC: No focal deficit. Cranial nerves II through XII are grossly intact. No headache, no double vision or headache. SKIN: Not dry. Intact. Turgor - normal. LYMPHATIC: No palpable lymph nodes/no lymphedema. MUSCULOSKELETAL: Normal joints with no swelling. Muscle tone is normal. LABS: Hgb 10.6, hct 32, WBC 14,000 normal differential, creatinine 0.8, BUN 26, potassium 4.1 ASSESSMENT: 1. Pneumonia 2. Influenza A seems to be resolving eventually to come extent PLAN: 1. Continue low flow oxygen along with NEBS, steroids and antibiotics CONDITION: Improving TIME SPENT: More than 30 minutes. Plan and coordination of the patient's care discussed in the presence of nurse. ANETA
--- NOTE | 2019-06-14 13:33 | PN ---
DATE OF SERVICE: 06/12/2019 SUBJECTIVE: 78 year old white female admitted with influenza now has right lower lobe infiltrate. The patient's condition seems to have improved today. We are going to try to wean her off high flow oxygen. The patient's pO2 with 32% oxygen FiO2 in upper 80's. She had rested well. Her appetite according to her seems to have improved. The youngest daughter present in the room. She is happy with the patient's progress. When the patient was asked in her presence about DNR status and she boastfully again wants her to be DNR. REVIEW OF SYSTEMS: CONSTITUTIONAL: No night sweats. No fatigue, malaise, lethargy. No fever or chills. HEENT: Eyes: No visual changes. No eye pain. No eye discharge. ENT: No runny nose. No epistaxis. No sinus pain. No sore throat. No odynophagia. No congestion. RESPIRATORY: No cough, no congestion. No hemoptysis. No shortness of breath. CARDIOVASCULAR: No angina symptoms. No CHF symptoms. No atypical chest pain for CAD. No palpitations. No PND. No orthopnea. GASTROINTESTINAL: No abdominal pain. No nausea or vomiting. No diarrhea or constipation. No hematemesis. No hematochezia. GENITOURINARY: No urgency. No frequency. No dysuria. No hematuria. No obstructive symptoms. No discharge. No pain. No significant abnormal bleeding. MUSCULOSKELETAL: No musculoskeletal pain; no joint swelling. NEUROLOGICAL: No headache. No neck pain. No syncope. No seizures. No dizziness. PSYCHIATRIC: Not anxious. No depression. No suicidal thoughts. No homicidal thoughts. SKIN: No rash. No lesions. No wounds. ENDOCRINE: No unexplained weight loss. No weight gain. HEMATOLOGIC/LYMPHATIC: No anemia. No purpura. No petechiae. No prolonged or excessive bleeding. No palpable lymph nodes. PHYSICAL EXAMINATION: GENERAL: The patient is , lying/sitting in bed in no distress. VITAL SIGNS: Temperature 98, pulse 82, respiratory rate 24, blood pressure 149/75 and pulse ox 96% on 32% FiO2 high flow. HEENT: Head normocephalic, atraumatic. Eyes: Extraocular muscles are intact. Pupils are equal, round and reactive to light and accommodation. Ears: No lesions. Nose appeared normal. Throat: No exudate or erythema. NECK: Supple. No JVD, no carotid bruit. No lymphadenopathy or thyromegaly. LUNGS: Good air entry. Clear to auscultation. Percussion note normal. Chest symmetrical. HEART: S1, S2, no S3. No murmurs. No cyanosis or clubbing. No ascites. Pulses: Dorsalis pedis and posterior tibial pulses +1 to +2 bilaterally. ABDOMEN: Soft. Nontender. Bowel sounds active. No CVA tenderness. No mass felt. EXTREMITIES: No edema. Full range of motion of all extremities, equal. NEUROLOGIC: No focal deficit. Cranial nerves II through XII are grossly intact. No headache, no double vision or headache. SKIN: Not dry. Intact. Turgor - normal. LYMPHATIC: No palpable lymph nodes/no lymphedema. MUSCULOSKELETAL: Normal joints with no swelling. Muscle tone is normal. LABS: Hgb 11.2, hct 34, WBC 13,000 normal differential,creatinine 0.9, BUN 34, potassium 4.5. ASSESSMENT: 1. Acute pneumonitis, right lower lobe 2. Influenza A 3. Severe chronic lung disease 4. Hypertension 5. Chronic anemia PLAN: 1. Continue antibiotics, steroids and NEBS 2. Encourage the patient to eat. 3. The patient again DNR. CONDITION: Stable. TIME SPENT: More than 30 minutes. Plan and coordination of the patient's care discussed in the presence of nurse. ANETA
[2019-06-14] MEDS: COUMADIN PO SCH (17:18)
[2019-06-15] MEDS: XOPENEX 1.25 MG NEB SCH ×4 (05:01→23:00)
[2019-06-15 05:10] LABS: HEMATOCRIT 32.5 % (37.0-47.0)
[2019-06-15] MEDS: SOLU-CORTEF 250 MG IVP SCH ×3 (05:34→21:00)
[2019-06-15] MEDS: PROTONIX PO SCH (05:35)
[2019-06-15] MEDS: CARAFATE PO SCH ×4 (05:35→21:00)
[2019-06-15] MEDS: MUCINEX PO SCH ×2 (08:20→21:01)
[2019-06-15] MEDS: COREG PO SCH ×3 (08:20→16:32)
[2019-06-15] MEDS: LEXAPRO PO SCH (08:20)
[2019-06-15] MEDS: HYZAAR 50-12.5 MG TAB PO SCH (08:20)
[2019-06-15] MEDS: TORADOL IVP SCH ×2 (08:20→21:00)
[2019-06-15] MEDS: OMNICEF PO SCH ×2 (08:20→21:01)
[2019-06-15] MEDS: K-DUR PO SCH ×3 (08:20→16:32)
[2019-06-15] MEDS: BACTRIM DS 800/160 MG PO SCH ×2 (08:21→21:01)
[2019-06-15] MEDS: COMBIVENT RESPIMAT INHALER IH SCH ×4 (08:21→21:00)
[2019-06-15] MEDS: ADVAIR 250-50 DISKUS IH SCH ×2 (08:21→21:00)
[2019-06-15] MEDS: XANAX PO PRN ×3 (08:29→21:01)
--- NOTE | 2019-06-15 08:41 | PCM.PROG ---
Attending Provider: ATTENDING PROVIDER: Dr. RAISA RASCON DATE OF SERVICE: 06/15/19 SUBJECTIVE: This 78 year old /WHITE F was hospitalized 06/01/19 with Influenza A and pneumonia steadily improved with 2L of p02 in lower 70s no distress. POA is present in the room as usual. The patient felt better after IV dose of Lasix. REVIEW OF SYSTEMS: CONSTITUTIONAL: No night sweats. No fatigue, malaise, lethargy. No fever or chills. HEENT: Eyes: No visual changes. No eye pain. No eye discharge. ENT: No runny nose. No epistaxis. No sinus pain. No odynophagia. No congestion. RESPIRATORY: No cough, no congestion. No hemoptysis. No shortness of breath. CARDIOVASCULAR: No angina symptoms. No CHF symptoms. No atypical chest pain for CAD. No palpitations. No orthopnea.. GASTROINTESTINAL: No abdominal pain. No nausea or vomiting. No diarrhea or constipation. No hematemesis. No hematochezia. GENITOURINARY: No urgency. No frequency. No dysuria. No hematuria. No obstructive symptoms. No discharge. No pain. No significant abnormal bleeding. MUSCULOSKELETAL: No musculoskeletal pain; no joint swelling. NEUROLOGICAL: Awake, alert, oriented to time, place and person. No headache. No neck pain. No syncope. No seizures. No dizziness. PSYCHIATRIC: Not anxious. No depression. No suicidal thoughts. No homicidal thoughts. SKIN: No rash. No lesions. No wounds. ENDOCRINE: No unexplained weight loss. No weight gain. HEMATOLOGIC/LYMPHATIC: No anemia. No purpura. No petechiae. No prolonged or excessive bleeding. No palpable lymph nodes. PHYSICAL EXAMINATION: GENERAL: The patient is awake, alert and oriented, lying/sitting in bed in no distress. VITAL SIGNS: Temperature 98.2 F, Pulse 84, Respiratory Rate 20, BP 153/74, Pulse Ox 93% HEENT: Head normocephalic, atraumatic. Eyes: Extraocular muscles are intact. Pupils are equal, round and reactive to light and accommodation. Ears: No lesions. Nose appeared normal. Throat: No exudate or erythema. NECK: Supple. No JVD, no carotid bruit. No lymphadenopathy or thyromegaly. LUNGS: Decreased breath sounds with good air entry. Percussion note normal. Chest symmetrical. HEART: S1, S2, no S3. No murmurs. No cyanosis or clubbing. No ascites. Pulses: Dorsalis pedis and posterior tibial pulses +1 to +2 both sides. ABDOMEN: Soft. Non-tender. Bowel sounds active. No CVA tenderness. No mass felt. EXTREMITIES: No edema. Full range of motion of all extremities, equal. NEUROLOGIC: No focal deficit. Cranial nerves II through XII are grossly intact. No headache, no double vision or headache. SKIN: Warm and dry. Intact. Turgor-normal. LYMPHATIC: No palpable lymph nodes/no lymphedema. MUSCULOSKELETAL: Normal joints with no swelling. Muscle tone is normal. LAB REVIEW: 06/15/19 04:45 06/15/19 04:45 06/15/19 04:45: PT 20.5 H, INR 2.18 06/15/19 04:45: Sodium 132.1 L, Potassium 3.55, Chloride 92.2 L, Carbon Dioxide 34.3 H, Anion Gap 9.15, BUN 25.6 H, Creatinine 0.92, Estimated GFR (MDRD) 59.00, BUN/Creatinine Ratio 27.82, Glucose 99.2, Calcium 9.03, Total Bilirubin 0.29, AST 29.9, ALT 29.9, Alkaline Phosphatase 134.2, Total Protein 5.86 L, Albumin 3.05 L, Globulin 2.81, Albumin/Globulin Ratio 1.08 06/15/19 04:45: WBC 16.38 H, RBC 3.72 L, Hgb 10.9 L, Hct 32.5 L, MCV 87.4, MCH 29.3, MCHC 33.5, RDW Coeff of Elie 14.3, Plt Count 350, Immature Gran % (Auto) 0.9, Neut % (Auto) 90.2 H, Lymph % (Auto) 4.8 L, [place] % (Auto) 4.0, Eos % (Auto) 0.0, Baso % (Auto) 0.1, Immature Gran # (Auto) 0.2, Neut # (Auto) 14.8 H, Lymph # (Auto) 0.8, [place] # (Auto) 0.7, Eos # (Auto) 0.0, Baso # (Auto) 0.0 06/14/19 08:45: Puncture Site R rad, O2 Saturation 97.0, ABG pH 7.483 H, ABG pCO2 39.7, ABG pO2 80.0 L, ABG HCO3 29.8 H, ABG Total CO2 31 H, ABG Base Excess 6 H, Milton Test +, O2 Delivery Device Nc, Oxygen Liter Flow 2.00 ASSESSMENT: Please see below. 1. Influenza A with pneumonia seems to be improving. PLAN: 1. Continue all medications. 2. Increase Carvedilol. 3. INR 2.1 - continue Coumadin. Plan and coordination of the patient's care discussed in the presence of Yarn Polishing Machine Operator and nurse. CONDITION: Stable SCRIBED BY: ZO DANG, Tower Supervisor scribed while in presence of service performed by Dr. RAISA RASCON on 06/15/19 ([id number])
[2019-06-15] MEDS: IPRATROPIUM BROMIDE NAS SCH ×2 (08:42→21:11)
--- NOTE | 2019-06-15 11:44 | RS.PTINEVL ---
Subjective - Patient information Date of Evaluation: 06/15/19 Date of Arrival on Unit: 06/01/19 Admitted From:: Home Diagnosis: influenza A, pneumonia Usual Living Arrangement: With Spouse Living Arrangement Comments: lives with spouse, dtrs live in the area. Home Environment: House, Stairs (few) (3 steps), Rail Medical History: COPD, Arthritis Medical History Comments:: pulmonary fibrosis, GERD, osteopenia, cervical radiculopathy, poly arthritis, gout, R shld injury Surgical History: Hysterectomy Surgical History Comments:: appey Medications: see chart Subjective Information/ Patient Comments:: pt states that she is not sure how much she can walk. When asked if she would try to do PT 2x a day to improve strength she stated "we will see but not in afternoon." After discussion pt agreed to allow PT to return at 1pm but not later because she wants to nap. - Level of function Prior to this admission, the patient could do the following:: Independent Selfcare, Independent ADL's, Independent Ambulation Current Level of Function: Partially Dependent Current Equipment Used at Home: nebulizer, oxygen, cane, shower chair Pain Assessement - Location ribs Description: Aching Pain Behavior: Grasping Site, Rubbing Site, Facial Grimacing Effects of Pain: coughing increases pain Interventions - Objective Patient Orientation: Person, Place, Time, Situation Current Interventions: Oxygen (2 liters), Telemetry Observation: pt with increased thoracic kyphosis, forward head, rounded shlds. Range of Motion - ROM Right Upper Extremity AROM: Slight limitation (limitation in shld due to injury) Left Upper Extremity AROM: WFL's Right Lower Extremity AROM: WFL's Left Lower Extremity AROM: WFL's Muscle Strength - Muscle Strength Right Upper Extremity Strength: Mild Weakness (shld flex 3-/5, elbow flex/ext 4- /5) Left Upper Extremity Strength: Mild Weakness (grossly 4-/5) Right Lower Extremity Strength: Mild Weakness (hip flex 4-/5, knee flex/ext 4/5, ankle DF/PF 4/5) Left Lower Extremity Strength: Mild Weakness (hip flex 4-/5, knee flex/ext 4/5, ankle DF/PF 4/5) Sensation - Sensation Right Upper Extremity Sensation: Intact/Normal Left Upper Extremity Sensation: Intact/Normal Right Lower Extremity Sensation: Intact/Normal Left Lower Extremity Sensation: Intact/Normal Palpation Palpation Findings: None/Normal Balance - Sitting Balance and Reactions Static Sitting Balance: Good Dynamic Sitting Balance: Fair - Standing Balance and Reactions Static Standing Balance: Fair Dynamic Standing Balance: Poor Standing Equilibrium Reactions: Delayed Left, Delayed Right Standing Protective Reactions: Delayed Left, Delayed Right Functional Mobility - Bed Mobility Rolling R/L: Supervision Supine to Sit: Supervision Sit to Supine: CGA - Transfers Sit to Stand: CGA Stand to Sit: CGA - Safety Awareness Safety Awareness: Fair MARYJO INDEX SCORE: n/a Ambulation - Ambulation Assistive Device Used: Rolling Walker Orthotic/Prosthetic Device: No Distance: 55ft Assistance needed with Ambulation: CGA Quality of Ambulation: 2 standing rest periods with O2. Pulse ox 92%. Gait Deviations: Forward posture, Short stride, Deviates from path Factors Affecting Ambulation: Decreased Balance, Breathing/O2 Saturation, Pain, Weakness, Decreased Safety, Limited Endurance Treatment time - Time with patient Length of Evaluation: 22 Total treatment time: 28 Patient Education - Education Patient Education: Activity Modification, Education of Plan of Care Teaching Recipient: Patient Teaching Methods: Discussion, Demonstration Comments: discussion regarding POC as well as safety with transfers and gait. Assessment - Assessment Problem List:: Decreased level of function, Requires training/education, Decreased safety/Risk of falls, Weakness Rehab Potential: Fair Further Therapy Indicated?: Yes Candidate for Swing Bed for Therapy Services?: Feel pt may not be able to tolerate enough therapy to qualify for swing bed. Feel pt would benefit from home health PT after DC. Evaluation Complexity: HISTORY: Medium, EXAM OF BODY SYSTEMS: Medium, CLINICAL PRESENTATION: Medium, CLINICAL DECISION MAKING: Medium Patient's Goal(s): be able to go home Short Term Goals GOAL #1: pt demonstrate independence with rolling and scooting in bed Goal to be met by: 06/17/19 GOAL #2: Transfer sup to/from sit independent Goal to be met by: 06/17/19 GOAL #3: Sit to/from stand SBA Goal to be met by: 06/17/19 GOAL #4: pt amb with rwx 100ft with O2 CGA Goal to be met by: 06/17/19 Marketing Area Manager Goals GOAL #1: Transfer sit to/from stand independently Goal to be met by: 06/19/19 GOAL #2: pt amb functional household distances with rwx and O2 independently Goal to be met by: 06/19/19 GOAL #3: Improve dyn stand balance fair+ Goal to be met by: 06/19/19 Plan Plan of Care: Therapeutic EX, Therapeutic Activity Other:: gait training Frequency of Treatment: 1-2 X day, as tolerated Duration of Treatment: 4 days Anticipated Discharge Destination: Home Treatment Diagnosis (ICD 10 Codes): impaired balance R 26.81. difficulty walking R 26.2 Has the Physician been added for Co-signature?: Yes
--- NOTE | 2019-06-15 12:09 | DI ---
EXAM: Chest two views HISTORY: Pneumonia COMPARISON: 06/09/2019 TECHNIQUE: Two views of the chest were performed FINDINGS: Lungs are hyperinflated. Right basilar infiltrate, similar to examination. Small right p leural effusion. No visible pneumothorax. Heart and mediastinal contour unchanged. Granulomatous c alcification. Right lung nodularity. IMPRESSION: 1. Right basilar pneumonia, similar to prior examination 2. Emphysema. 3. Right lung nodularity. Nodule described on prior CT chest. Recommend CT follow-up.
[2019-06-15] MEDS: COUMADIN PO SCH (16:32)
[2019-06-16 05:08] LABS: HEMATOCRIT 30.7 % (37.0-47.0)
[2019-06-16] MEDS: XOPENEX 1.25 MG NEB SCH ×4 (05:15→23:00)
[2019-06-16] MEDS: SOLU-CORTEF 250 MG IVP SCH (05:24)
[2019-06-16] MEDS: CARAFATE PO SCH ×4 (05:33→20:17)
[2019-06-16] MEDS: PROTONIX PO SCH (05:33)
[2019-06-16] MEDS ORDERED: LASIX IVP SCH (06:30)
[2019-06-16] MEDS: ADVAIR 250-50 DISKUS IH SCH ×2 (08:07→20:15)
[2019-06-16] MEDS: COMBIVENT RESPIMAT INHALER IH SCH ×4 (08:07→20:15)
[2019-06-16] MEDS: BACTRIM DS 800/160 MG PO SCH ×2 (08:08→20:15)
[2019-06-16] MEDS: OMNICEF PO SCH ×2 (08:10→20:16)
[2019-06-16] MEDS: LEXAPRO PO SCH (08:10)
[2019-06-16] MEDS: MUCINEX PO SCH ×2 (08:10→20:16)
[2019-06-16] MEDS: XANAX PO PRN ×3 (08:11→20:26)
[2019-06-16] MEDS: HYZAAR 50-12.5 MG TAB PO SCH (08:11)
[2019-06-16] MEDS: COREG PO SCH ×2 (08:11→16:49)
[2019-06-16] MEDS: K-DUR PO SCH ×4 (08:12→20:16)
[2019-06-16] MEDS: IPRATROPIUM BROMIDE NAS SCH ×2 (08:28→20:58)
[2019-06-16] MEDS: TORADOL IVP SCH (08:42)
--- NOTE | 2019-06-16 13:14 | PN ---
DATE OF SERVICE: 06/16/2019 SUBJECTIVE: 78 year old white female admitted with Influenza A and had right lower lobe pneumonia. The patient's condition has steadily improved. She is feeling a lot better. REVIEW OF SYSTEMS: CONSTITUTIONAL: No night sweats. No fatigue, malaise, lethargy. No fever or chills. HEENT: Eyes: No visual changes. No eye pain. No eye discharge. ENT: No runny nose. No epistaxis. No sinus pain. No sore throat. No odynophagia. No congestion. RESPIRATORY: Mild cough with congestion. No hemoptysis. No shortness of breath. CARDIOVASCULAR: No angina symptoms. No CHF symptoms. No atypical chest pain for CAD. No palpitations. No PND. No orthopnea. GASTROINTESTINAL: No abdominal pain. No nausea or vomiting. No diarrhea or constipation. No hematemesis. No hematochezia. Appetite is improving. The patient is drinking 2-3 cans of Boost daily. GENITOURINARY: No urgency. No frequency. No dysuria. No hematuria. No obstructive symptoms. No discharge. No pain. No significant abnormal bleeding. MUSCULOSKELETAL: No musculoskeletal pain; no joint swelling. NEUROLOGICAL: No headache. No neck pain. No syncope. No seizures. No dizziness. PSYCHIATRIC: Not anxious. No depression. No suicidal thoughts. No homicidal thoughts. SKIN: No rash. No lesions. No wounds. ENDOCRINE: No unexplained weight loss. No weight gain. HEMATOLOGIC/LYMPHATIC: No anemia. No purpura. No petechiae. No prolonged or excessive bleeding. No palpable lymph nodes. PHYSICAL EXAMINATION: VITAL SIGNS: Temperature 97.9, pulse 79, respiratory rate 20, blood pressure 150/77 and pulse ox 94%. HEENT: Head normocephalic, atraumatic. Eyes: Extraocular muscles are intact. Pupils are equal, round and reactive to light and accommodation. Ears: No lesions. Nose appeared normal. Throat: No exudate or erythema. NECK: Supple. No JVD, no carotid bruit. No lymphadenopathy or thyromegaly. LUNGS: Mild expiratory wheeze. Good air entry. Clear to auscultation. Percussion note normal. Chest symmetrical. HEART: S1, S2, no S3. No murmurs. No cyanosis or clubbing. No ascites. Pulses: Dorsalis pedis and posterior tibial pulses +1 bilaterally. ABDOMEN: Soft. Nontender. Bowel sounds active. No CVA tenderness. No mass felt. EXTREMITIES: No edema. Full range of motion of all extremities, equal. NEUROLOGIC: No focal deficit. Cranial nerves II through XII are grossly intact. No headache, no double vision or headache. SKIN: Not dry. Intact. Turgor - normal. LYMPHATIC: No palpable lymph nodes/no lymphedema. MUSCULOSKELETAL: Normal joints with no swelling. Muscle tone is normal. LABS: Hgb 10.1, hct 30, WBC 12,000 normal differential,creatinine 0.8, BUN 30, potassium 3.5. ASSESSMENT: 1. Influenza A with right lower lobe pneumonia seems to be resolving 2. Severe chronic lung disease 3. Hypertension 4. Hypokalemia 5. Anemia, chronic PLAN: 1. Discontinue Solu-Cortef 2. Start Prednisone 30mg PO daily 3. K-tab to be increased to four times a day 4. Continue the rest of the antibiotics as before 5. May end up doing echocardiogram to evaluate LV function likely cause of the patient's fluid retention which response to Lasix is because of increase dosage of steroids TIME SPENT: More than 30 minutes. Plan and coordination of the patient's care discussed in the presence of nurse. ANETA
[2019-06-16] MEDS: COUMADIN PO SCH (16:50)
[2019-06-16] MEDS ORDERED: BACTRIM DS 800/160 MG ONE (20:57)
[2019-06-17 04:46] LABS: HEMATOCRIT 33.7 % (37.0-47.0)
[2019-06-17] MEDS: XOPENEX 1.25 MG NEB SCH ×2 (04:50→11:05)
[2019-06-17] MEDS: CARAFATE PO SCH ×2 (05:56→10:45)
[2019-06-17] MEDS: PROTONIX PO SCH (05:56)
[2019-06-17 05:57] VITALS: BP 148/76; TEMP 98.1
[2019-06-17] MEDS ORDERED: LASIX IVP ONE (06:30)
[2019-06-17] MEDS ORDERED: PREDNISONE PO SCH ×4 (08:00)
[2019-06-17] MEDS: BACTRIM DS 800/160 MG PO SCH (08:12)
[2019-06-17] MEDS: K-DUR PO SCH ×2 (08:13→12:03)
[2019-06-17] MEDS: ADVAIR 250-50 DISKUS IH SCH (08:13)
[2019-06-17] MEDS: COMBIVENT RESPIMAT INHALER IH SCH ×2 (08:13→12:06)
[2019-06-17] MEDS: OMNICEF PO SCH (08:14)
[2019-06-17] MEDS: LEXAPRO PO SCH (08:14)
[2019-06-17] MEDS: HYZAAR 50-12.5 MG TAB PO SCH (08:14)
[2019-06-17] MEDS: XANAX PO PRN (08:15)
[2019-06-17] MEDS: COREG PO SCH (08:15)
[2019-06-17] MEDS: MUCINEX PO SCH (08:15)
[2019-06-17] MEDS: IPRATROPIUM BROMIDE NAS SCH (08:18)
--- NOTE | 2019-06-17 08:30 | PCM.PROG ---
Attending Provider: ATTENDING PROVIDER: Dr. RAISA RASCON DATE OF SERVICE: 06/17/19 SUBJECTIVE: This 78 year old /WHITE F was hospitalized 06/01/19 with Influenza A, right lower lobe infiltrate, possibility of pneumonia. The patient is being treated with Omnicef and Septra. The patient's condition is stabilizing. She requires 2L of oxygen. Oxygen saturation 94%. She is not in any distress, has mild cough. Appetite improved. The patient now has some reflux. The patient is able to talk in full sentences. The is in the room. REVIEW OF SYSTEMS: CONSTITUTIONAL: No night sweats. No fatigue, malaise, lethargy. No fever or chills. HEENT: Eyes: No visual changes. No eye pain. No eye discharge. ENT: No runny nose. No epistaxis. No sinus pain. No odynophagia. No congestion. RESPIRATORY: No cough, no congestion. No hemoptysis. No shortness of breath. CARDIOVASCULAR: No angina symptoms. No CHF symptoms. No atypical chest pain for CAD. No palpitations. No orthopnea.. GASTROINTESTINAL: No abdominal pain. No nausea or vomiting. No diarrhea or constipation. No hematemesis. No hematochezia. GENITOURINARY: No urgency. No frequency. No dysuria. No hematuria. No obstructive symptoms. No discharge. No pain. No significant abnormal bleeding. MUSCULOSKELETAL: No musculoskeletal pain; no joint swelling. NEUROLOGICAL: Awake, alert, oriented to time, place and person. No headache. No neck pain. No syncope. No seizures. No dizziness. PSYCHIATRIC: Not anxious. No depression. No suicidal thoughts. No homicidal thoughts. SKIN: No rash. No lesions. No wounds. ENDOCRINE: No unexplained weight loss. No weight gain. HEMATOLOGIC/LYMPHATIC: No anemia. No purpura. No petechiae. No prolonged or excessive bleeding. No palpable lymph nodes. PHYSICAL EXAMINATION: GENERAL: The patient is awake, alert and oriented, lying/sitting in bed in no distress. VITAL SIGNS: Temperature 98.1 F, Pulse 65, Respiratory Rate 18, BP 148/76, Pulse Ox 93% HEENT: Head normocephalic, atraumatic. Eyes: Extraocular muscles are intact. Pupils are equal, round and reactive to light and accommodation. Ears: No lesions. Nose appeared normal. Throat: No exudate or erythema. NECK: Supple. No JVD, no carotid bruit. No lymphadenopathy or thyromegaly. LUNGS: Decreased breath sounds with good air entry. Percussion note normal. Chest symmetrical. HEART: S1, S2, no S3. No murmurs. No cyanosis or clubbing. No ascites. Pulses: Dorsalis pedis and posterior tibial pulses +1 to +2 both sides. ABDOMEN: Soft. Non-tender. Bowel sounds active. No CVA tenderness. No mass felt. EXTREMITIES: No edema. Full range of motion of all extremities, equal. NEUROLOGIC: No focal deficit. Cranial nerves II through XII are grossly intact. No headache, no double vision or headache. SKIN: Warm and dry. Intact. Turgor-normal. LYMPHATIC: No palpable lymph nodes/no lymphedema. MUSCULOSKELETAL: Normal joints with no swelling. Muscle tone is normal. LAB REVIEW: 06/17/19 04:39 06/17/19 04:39 06/17/19 04:40: Puncture Site Rrad, O2 Saturation 94.0 L, ABG pH 7.531 H*, ABG pCO2 39.4, ABG pO2 64.0 L, ABG HCO3 33 H, ABG Total CO2 34 H, ABG Base Excess 10 H, [place] Test +, O2 Delivery Device Nc, Oxygen Liter Flow 2.00, FiO2 % 28.0 06/17/19 04:39: Sodium 128.7 L, Potassium 3.89, Chloride 90.3 L, Carbon Dioxide 36.0 H, Anion Gap 6.29, BUN 27.8 H, Creatinine 0.99, Estimated GFR (MDRD) 55.00, BUN/Creatinine Ratio 28.08, Glucose 74.0 D, Calcium 8.93, Total Bilirubin 0.31, AST 33.8, ALT 28.3, Alkaline Phosphatase 118.5, Total Protein 5.72 L, Albumin 2.99 L, Globulin 2.73, Albumin/Globulin Ratio 1.09 06/17/19 04:39: PT 25.1 H, INR 2.71 06/17/19 04:39: WBC 10.33 H, RBC 3.88 L, Hgb 11.1 L, Hct 33.7 L, MCV 86.9, MCH 28.6, MCHC 32.9, RDW Coeff of Elie 14.4, Plt Count 320, Immature Gran % (Auto) 1.6, Neut % (Auto) 73.7, Lymph % (Auto) 15.7, [place] % (Auto) 7.8, Eos % (Auto) 1.1, Baso % (Auto) 0.1, Immature Gran # (Auto) 0.2, Neut # (Auto) 7.6 H, Lymph # (Auto) 1.6, [place] # (Auto) 0.8, Eos # (Auto) 0.1, Baso # (Auto) 0.0 ASSESSMENT: Please see below. 1. Influenza A and right lower lobe infiltrate seems to be resolving. 2. Severe chronic lung disease. PLAN: 1. Discharge home on Omnicef and Septra to be taken for 7 more days. 2. Prednisone 20 mg daily for five more days then 10 mg daily for 5 days. 3. Will see the patient in the office in 7 days. 4. Advised to continue nebs and antibiotics. Plan and coordination of the patient's care discussed in the presence of Teacher Education Director and nurse. CONDITION: STABLE SCRIBED BY: ZO DANG Printing Shop Supervisor scribed while in presence of service performed by Dr. RAISA RASCON on 06/17/19 ([id number])
--- NOTE | 2019-06-17 11:13 | CM.DICTOOL ---
ADMISSION: 06/01/19 14:47 DISCHARGE: JUNE 17, 2019 FINAL DIAGNOSIS INFLUENZA A AND RIGHT LOWER INFILTRATE SEEMS TO BE RESOLVING SEVERE CHRONIC LUNG DISEASE HX: BRONCHITIS , CHRONIC( 05/2019) COPD (OXYGEN DEPENDENT)- DR. OLIVAS PLEURITIC PAIN, RIGHT CHEST HISTORY OF: PULMONARY FIBROSIS LUNG NODULE, RIGHT 7.4 MM (DR. 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) OSTEOARTHRITIS GOUT RT SHOULDER INJURY PREVIOUS SMOKER, STOPPED 2014 HTN SURGICAL PROCEDURE: CATARACT EXTRACTION, 06/2018 HYSTERECTOMY APPENDECTOMY PFT: 06/15/2018 SEVERE COPD LAST VITALS Temp Pulse Resp BP Pulse Ox 98.1 F 65 18 148/76 H 93 L 06/17/19 05:55 06/17/19 05:55 06/16/19 21:08 06/17/19 05:55 06/17/19 05:55 TAKE THESE MEDICATIONS AT HOME Albuterol/Ipratropium (Combivent Respimat Inhal [place]) 1 spray IH QID [facility] Last Admin: 06/17/19 08:13 Dose: 1 spray Documented by: Alprazolam (Xanax) 0.25 mg PO TID PRN (NEW) PRN Reason: Anxiety Last Admin: 06/17/19 08:15 Dose: 0.25 mg Documented by: Carvedilol (Coreg) 6.25 mg PO BIDWM [facility] (NEW) Last Admin: 06/17/19 08:15 Dose: 6.25 mg Documented by: Cefdinir (Omnicef) 300 mg PO Q12HR [facility] X 7 MORE DAYS (NEW) Stop: 06/18/19 22:00 Last Admin: 06/17/19 08:14 Dose: 300 mg Escitalopram Oxalate (Lexapro) 10 mg PO DAILY [facility] (NEW) Last Admin: 06/17/19 08:14 Dose: 10 mg Documented by: HCTZ/Losartan Potassium (Hyzaar 50-12.5 Mg Tab) 1 tab PO DAILY [facility]--------- ----- (NEW) Last Admin: 06/17/19 08:14 Dose: 1 tab Documented by: Non-Formulary Medication (Ipratropium [place]) 2 spray EDWIN BID [facility] Last Admin: 06/17/19 08:18 Dose: Not Given Documented by: Pantoprazole Sodium (Protonix) 40 mg PO BIDAC [facility] ( CHANGED) Potassium Chloride (K-Dur) 20 meq PO 0800,1200,1700,2100 [facility] (NEW) Last Admin: 06/17/19 08:13 Dose: 20 meq Documented by: Prednisone (Prednisone) 20 mg PO DAILYWM X 5 DAYS THEN 10 MG DAILY X 5 DAYS [facility] (NEW) Last Admin: 06/17/19 08:13 Dose: 20 mg Documented by: Fluticasone/Salmeterol (Advair 250-50 [place]) 1 puff IH BID [facility] Last Admin: 06/17/19 08:13 Dose: 1 puff Documented by: Sucralfate (Carafate) 1 gm PO ACHS [facility] ( NEW) Last Admin: 06/17/19 05:56 Dose: 1 gm Documented by: Trimethoprim/Sulfamethoxazole (Bactrim Ds 800/160 Mg) 0.5 tab PO Q12HR X 7 MORE DAYS [facility] (NEW) Stop: 06/18/19 21:01 Last Admin: 06/17/19 08:12 Dose: 0.5 tab Documented by: Warfarin Sodium (Coumadin) 4 mg PO QPM [facility] Last Admin: 06/16/19 16:50 Dose: 4 mg Documented by: TRAMADOL 50 MG PO BID PRN FOR PAIN ALLERGIES ciprofloxacin [From Cipro] Adverse Reaction (Verified 06/01/19 12:20) hydrocodone Adverse Reaction (Verified 06/01/19 12:20) Abdominal Pain gi cocktail Adverse Reaction (Uncoded 06/01/19 14:27) DISCONTINUED MEDICATIONS Calcium/Vitamin D CALCIUM CARBONATE 600MG Cephalexin (Keflex) Lorazepam (Ativan) Prednisone (Prednisone) 5 MG Promethazine HCl/Codeine (Phenergan With Codeine 6.25/10 Mg/5 Ml) SINGULAIR NEW PRESCRIPTIONS: XANAX 0.25 MG PO T.I.D. PRN COREG 6.25 MG PO BID LEXAPRO 10 MG PO DAILY HYZAAR 50-12.5 MG PO DAILY K-DUR 20 MEQ PO Q.I.D. PREDNISONE 20 MG DAILY X 5, 10 MG DAILY X 5, THEN STOP, PO CARAFATE 1 GRAM PO AC/HS PROTONIX 40 MG PO BID ( CHANGED) OMNICEF 300 MG PO EVERY 12 HOURS X 7 MORE DAYS SEPTRA 400/80MG PO EVERY 12 HOURS X 7 MORE DAYS SMOKING: NON- APPLICABLE DISEASE SPECIFIC EDUCATION: PNEUMONIA OXYGEN DEPRESSION ANXIETY INHALANTS LAB REVIEW: 06/17/19 04:39 06/17/19 04:39 06/17/19 04:40: Puncture Site Rrad, O2 Saturation 94.0 L, ABG pH 7.531 H*, ABG pCO2 39.4, ABG pO2 64.0 L, ABG HCO3 33 H, ABG Total CO2 34 H, ABG Base Excess 10 H, [place] Test +, O2 Delivery Device Nc, Oxygen Liter Flow 2.00, FiO2 % 28.0 06/17/19 04:39: Sodium 128.7 L, Potassium 3.89, Chloride 90.3 L, Carbon Dioxide 36.0 H, Anion Gap 6.29, BUN 27.8 H, Creatinine 0.99, Estimated GFR (MDRD) 55.00, BUN/Creatinine Ratio 28.08, Glucose 74.0 D, Calcium 8.93, Total Bilirubin 0.31, AST 33.8, ALT 28.3, Alkaline Phosphatase 118.5, Total Protein 5.72 L, Albumin 2.99 L, Globulin 2.73, Albumin/Globulin Ratio 1.09 06/17/19 04:39: PT 25.1 H, INR 2.71 06/17/19 04:39: WBC 10.33 H, RBC 3.88 L, Hgb 11.1 L, Hct 33.7 L, MCV 86.9, MCH 28.6, MCHC 32.9, RDW Coeff of Elie 14.4, Plt Count 320, Immature Gran % (Auto) 1.6, Neut % (Auto) 73.7, Lymph % (Auto) 15.7, [place] % (Auto) 7.8, Eos % (Auto) 1.1, Baso % (Auto) 0.1, Immature Gran # (Auto) 0.2, Neut # (Auto) 7.6 H, Lymph # (Auto) 1.6, [place] # (Auto) 0.8, Eos # (Auto) 0.1, Baso # (Auto) 0.0 PLAN: DISCHARGE HOME TODAY WITH SPOUSE. DAUGHTER TO ASSIST INTERMITTENTLY AND WILL STAY MUCH NEEDED. REFUSED HOMEHEALTH THERAPY AND MCC. ACTIVITY: UP AND WALKING FREQUENTLY WITH ROLLATOR AND FREQUENT REST PERIODS. DIET: REGULAR WITH BOOST SUPPLEMENTS THREE TIMES DAILY. SEE DR. RASCON/ TERESA LYONS APRN IN THE OFFICE MONDAY, JUNE 24, 2019 @ 1000 AM. CODE STATUS: DO NOT RESUSCITATE. MRS. STEINBERG HAS REMAINED ALERT AND ORIENTED X 4. PLEASANT AND TALKS APPROPRIATELY. LUNGS ARE DIMINISHED AND COUGHING INTERMITTENTLY WITH PALE YELLOW SPUTUM AT TIMES. NO REPORTS OF ANY FURTHER PLEURITIC PAIN. NO GENERAL DISCOMFORT. BREATHING BETTER, HOWEVER STILL HAS EXERTIONAL DYSPNEA AND DEPENDS ON OXYGEN PER N/C @ 2L/M. HAS HAD PHYSICAL THERAPY INTERMITTENTLY. AT TIMES SHE WOULD PARTICI ADDISON AND AT OTHER TIMES TO WEAK AND NO ENDURANCE. MRS. STEINBERG DISPLAYED ON SEVERAL OCCASIONS THAT SHE WAS NOT INTERESTED IN PHYSICAL THERAPY. HER AND BRYSON,DTR, DOES NOT WANT THERAPY OR A NURSE TO COME IN TO HER HOME. 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 IS ABLE TO TRANSFER HERSELF TO THE [facility] BUT NEEDS SBA AND A ROLLING WALKER AND O2. THERAPY DEPARTMEN T RECOMMENDED A ROLLATOR SO SHE COULD PUT HER O2 TANK IN IT. CONTINENT OF BOWEL AND BLADDER WITH LBM 06/16/2019 AND NO FURTHER DIARRHEA OR LOOSE STOOLS. APPETITE HAS IMPROVED WITH TOTAL PROTEIN AND ALBUMIN LEVELS IMPROVING. MD TERESA SMILEY APRN
[2019-06-17] MEDS ORDERED: PROTONIX PO SCH (17:00)
--- NOTE | 2019-06-18 12:36 | DS ---
DATE OF SERVICE: 06/17/2019 FINAL DIAGNOSIS: 1. INFLUENZA A AND RIGHT LOWER INFILTRATE SEEMS TO BE RESOLVING 2. SEVERE CHRONIC LUNG DISEASE HISTORY: BRONCHITIS , CHRONIC( 05/2019) COPD (OXYGEN DEPENDENT)- DR. OLIVAS PLEURITIC PAIN, RIGHT CHEST HISTORY OF: PULMONARY FIBROSIS LUNG NODULE, RIGHT 7.4 MM (DR. 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 DAUGHTER TO ASSIST INTERMITTENTLY AND WILL STAY MUCH NEEDED. REFUSED HOME HEALTH THERAPY AND LONG-TERM. SEE DR. RASCON/ TERESA LYONS APRN IN THE OFFICE MONDAY, JUNE 24, 2019 @ 1000 AM. CODE STATUS: DO NOT RESUSCITATE. TAKE THESE MEDICATIONS AT HOME: Albuterol/Ipratropium (Combivent Respimat Inhal [place]) 1 spray IH QID [facility] Last Admin: 06/17/19 08:13 Dose: 1 spray Documented by: Alprazolam (Xanax) 0.25 mg PO TID PRN (NEW) PRN Reason: Anxiety Last Admin: 06/17/19 08:15 Dose: 0.25 mg Documented by: Carvedilol (Coreg) 6.25 mg PO BIDWM [facility] (NEW) Last Admin: 06/17/19 08:15 Dose: 6.25 mg Documented by: Cefdinir (Omnicef) 300 mg PO Q12HR [facility] X 7 MORE DAYS (NEW) Stop: 06/18/19 22:00 Last Admin: 06/17/19 08:14 Dose: 300 mg Escitalopram Oxalate (Lexapro) 10 mg PO DAILY [facility] (NEW) Last Admin: 06/17/19 08:14 Dose: 10 mg Documented by: HCTZ/Losartan Potassium (Hyzaar 50-12.5 Mg Tab) 1 tab PO DAILY [facility] (NEW) Last Admin: 06/17/19 08:14 Dose: 1 tab Documented by: Non-Formulary Medication (Ipratropium [place]) 2 spray EDWIN BID [facility] Last Admin: 06/17/19 08:18 Dose: Not Given Documented by: Pantoprazole Sodium (Protonix) 40 mg PO BIDAC [facility] ( CHANGED) Potassium Chloride (K-Dur) 20 meq PO 0800,1200,1700,2100 [facility] (NEW) Last Admin: 06/17/19 08:13 Dose: 20 meq Documented by: Prednisone (Prednisone) 20 mg PO DAILYWM X 5 DAYS THEN 10 MG DAILY X 5 DAYS [facility] (NEW) Last Admin: 06/17/19 08:13 Dose: 20 mg Documented by: Fluticasone/Salmeterol (Advair 250-50 Diskus) 1 puff IH BID [facility] Last Admin: 06/17/19 08:13 Dose: 1 puff Documented by: Sucralfate (Carafate) 1 gm PO ACHS [facility] ( NEW) Last Admin: 06/17/19 05:56 Dose: 1 gm Documented by: Trimethoprim/Sulfamethoxazole (Bactrim Ds 800/160 Mg) 0.5 tab PO Q12HR X 7 MORE DAYS [facility] (NEW) Stop: 06/18/19 21:01 Last Admin: 06/17/19 08:12 Dose: 0.5 tab Documented by: Warfarin Sodium (Coumadin) 4 mg PO QPM [facility] Last Admin: 06/16/19 16:50 Dose: 4 mg Documented by: TRAMADOL 50 MG PO BID PRN FOR PAIN ALLERGIES: ciprofloxacin [From Cipro] Adverse Reaction (Verified 06/01/19 12:20) hydrocodone Adverse Reaction (Verified 06/01/19 12:20) Abdominal Pain GI cocktail Adverse Reaction (Uncoded 06/01/19 14:27) DISCONTINUED MEDICATIONS: Calcium/Vitamin D CALCIUM CARBONATE 600MG Cephalexin (Keflex) Lorazepam (Ativan) Prednisone (Prednisone) 5 MG Promethazine HCl/Codeine (Phenergan With Codeine 6.25/10 Mg/5 Ml) SINGULAIR NEW PRESCRIPTIONS: XANAX 0.25 MG PO T.I.D. PRN COREG 6.25 MG PO BID LEXAPRO 10 MG PO DAILY HYZAAR 50-12.5 MG PO DAILY K-DUR 20 MEQ PO Q.I.D. PREDNISONE 20 MG DAILY X 5, 10 MG DAILY X 5, THEN STOP, PO CARAFATE 1 GRAM PO AC/HS PROTONIX 40 MG PO BID ( CHANGED) OMNICEF 300 MG PO EVERY 12 HOURS X 7 MORE DAYS SEPTRA 400/80MG PO EVERY 12 HOURS X 7 MORE DAYS SMOKING: NON- APPLICABLE DISEASE SPECIFIC EDUCATION: PNEUMONIA OXYGEN DEPRESSION ANXIETY INHALANTS LAB REVIEW: 06/17/19 04:39 06/17/19 04:39 06/17/19 04:40: Puncture Site Rrad, O2 Saturation 94.0 L, ABG pH 7.531 H*, ABG pCO2 39.4, ABG pO2 64.0 L, ABG HCO3 33 H, ABG Total CO2 34 H, ABG Base Excess 10 H, [place] Test +, O2 Delivery Device Nc, Oxygen Liter Flow 2.00, FiO2 % 28.0 06/17/19 04:39: Sodium 128.7 L, Potassium 3.89, Chloride 90.3 L, Carbon Dioxide 36.0 H, Anion Gap 6.29, BUN 27.8 H, Creatinine 0.99, Estimated GFR (MDRD) 55.00, BUN/Creatinine Ratio 28.08, Glucose 74.0 D, Calcium 8.93, Total Bilirubin 0.31, AST 33.8, ALT 28.3, Alkaline Phosphatase 118.5, Total Protein 5.72 L, Albumin 2.99 L, Globulin 2.73, Albumin/Globulin Ratio 1.09 06/17/19 04:39: PT 25.1 H, INR 2.71 06/17/19 04:39: WBC 10.33 H, RBC 3.88 L, Hgb 11.1 L, Hct 33.7 L, MCV 86.9, MCH 28.6, MCHC 32.9, RDW Coeff of Elie 14.4, Plt Count 320, Immature Gran % (Auto) 1.6, Neut % (Auto) 73.7, Lymph % (Auto) 15.7, [place] % (Auto) 7.8, Eos % (Auto) 1.1, Baso % (Auto) 0.1, Immature Gran # (Auto) 0.2, Neut # (Auto) 7.6 H, Lymph # (Auto) 1.6, [place] # (Auto) 0.8, Eos # (Auto) 0.1, Baso # (Auto) 0.0 ACTIVITY: UP AND WALKING FREQUENTLY WITH ROLLATOR AND FREQUENT REST PERIODS. DIET: REGULAR WITH BOOST SUPPLEMENTS THREE TIMES DAILY. HOSPITAL COURSE: 78 YEAR OLD WHITE FEMALE HOSPITALIZED WITH INFLUENZA A AND ACUTE BRONCHITIS. THE PATIENT DURING THE STAY IN THE HOSPITAL WAS TREATED WITH IV ANTIBIOTICS AND NEBS TREATMENTS AND STEROIDS. DURING THE STAY IN THE HOSPITAL AFTER 5-6 DAYS OF HOSPITALIZATION THE PATIENT'S CONDITION WORSENED AND THE PATIENT REQUIRED HIGH DOSES OF STEROIDS A LONG WITH DOUBLE ANTIBIOTICS AND HIGH FLOW OXYGEN. THE PATIENT NEEDED HIGH FLOW OXYGEN FOR APPROXIMATELY TWO TO THREE DAYS AFTER THAT SHE WAS SUCCESSFULLY WEANED OFF. THE PATIENT'S CONDITION FOR THE PAST THREE DAYS HAS IMPROVED TO THE POINT WHERE HAS BEEN ABLE TO TALK SENTENCES. APPETITE HAS INCREASED. SHE IS FEELING A LOT BETTER. HER ABG DONE ON THE DAYS OF DISCHARGE ON 2 LITERS WITH PO2 OF 64, PCO2 39, PH 7.53 WITH 94% SATURATION. THE PATIENT'S CREATININE IS 0.9, BUN 27. SHE DID REQUIRE INTERMITTENT LASIX BECAUSE OF FLUID RETENTION FROM STEROIDS. IN ANY CASE AT THE TIME OF DISCHARGE SHE IS UP AND ABOUT WITH HELP. STILL SHORT OF BREATH ON MINIMAL EXERTION. APPETITE HAS IMPROVED. MENTAL STATUS HAS IMPROVED. SHE IS ABLE TO CARRY ON CONVERSATION WITHOUT COUGHING. HER PROGNOSIS IS NOT GOOD CONSIDERING THE SEVERITY OF HER CHRONIC LUNG DISEASE. PULMONARY REHAB WAS RECOMMENDED TO WHICH SHE DECLINED. TIME SPENT: More than 60 minutes. ANETA
--- NOTE | 2019-06-18 13:09 | PN ---
06/01/2019: LEVEL 5 06/02/2019: INTERMEDIATE 06/03/2019: INTERMEDIATE 06/04/2019: INTERMEDIATE 06/05/2019: INTERMEDIATE 06/06/2019: INTERMEDIATE 06/07/2019: INTERMEDIATE 06/08/2019: INTERMEDIATE 06/09/2019: EXTENSIVE 06/10/2019: EXTENSIVE 06/11/2019: EXTENSIVE 06/12/2019: INTERMEDIATE 06/13/2019: INTERMEDIATE 06/14/2019: INTERMEDIATE 06/15/2019: INTERMEDIATE 06/16/2019: INTERMEDIATE 06/17/2019: D IN DISCHARGE MTDD
== END 2019-06-17 12:51 | disposition home or self-care (01) | DRG 190 ==
LOC: ED 12:14 → MEDSURG B 14:47
PROVIDERS: ADMIT Internal Medicine; ATTEND Internal Medicine
DX: R53.83 Other fatigue; Z79.01 Long term (current) use of anticoagulants; J20.9 Acute bronchitis, unspecified; R53.1 Weakness; R06.02 Shortness of breath; J11.1 Influenza due to unidentified influenza virus with other respiratory manifestations; I10 Essential (primary) hypertension; J44.1 Chronic obstructive pulmonary disease with (acute) exacerbation; J18.1 Lobar pneumonia, unspecified organism; K29.70 Gastritis, unspecified, without bleeding; E87.6 Hypokalemia; Z79.899 Other long term (current) drug therapy; Z99.81 Dependence on supplemental oxygen

== ENCOUNTER 2019-06-24 11:11 | Inpatient (IN) ==
[2019-06-24] MEDS ORDERED: NITROSTAT SL PRN (11:39)
[2019-06-24] MEDS ORDERED: ATROPINE SULFATE PFS IVP PRN (11:39)
[2019-06-24] MEDS ORDERED: VISTARIL INJ IM PRN (11:39)
[2019-06-24] MEDS ORDERED: MEPHYTON PO STA (11:39)
[2019-06-24 11:44] VITALS: BMI 16.5
[2019-06-24] MEDS: XOPENEX 1.25 MG NEB SCH ×3 (11:52→23:04)
[2019-06-24 12:13] LABS: HEMATOCRIT 33.4 % (37.0-47.0)
[2019-06-24] MEDS: COMBIVENT RESPIMAT INHALER IH SCH ×5 (12:39→20:17)
[2019-06-24] MEDS ORDERED: K-DUR PO SCH (13:00)
--- NOTE | 2019-06-24 13:04 | DI ---
EXAM: Single view of the chest. History: Respiratory failure. Comparison: Chest radiograph 06/15/2019 Findings: Heart size is normal. Hyperinflation. New consolidation within the right lower lobe and small right pleural effusion. Biapical lung scarring. No acute osseous abnormalities. No pneumotho rax. Atherosclerotic vascular calcifications. Impression: Right lower lobe pneumonia
[2019-06-24] MEDS: XANAX PO SCH ×2 (14:42→20:16)
--- NOTE | 2019-06-24 15:35 | RS.SLPCNOT ---
Speech Case Note Date of Note: 06/24/19 Title: Swallow consult Note: Nursing assessment alerted ST for swallow consult. COPY EDITOR reported pt stated difficulty with swallowing large pills and hx of hiatal hernia. SALES TRADER entered pt's room and discussed swallowing concerns. Pt reported anxiety and requested medication. Nursing provided anxiety medications. Pt had moderate difficulty swallowing small pill and required three swallows to complete medication administration. Pt stated she is "scared of choking," and "her primary concern right now is swallowing food." She went on to report sypmtoms of feeling food stuck during and after eating a typical meal. The SALES TRADER provided verbal education on safe swallowing and UES function. The SALES TRADER recommended to complete a full evaluation to determine compensation and safety strategies for pt to increase confidence with swallow function. RN ordered BSE, and SALES TRADER will complete at noon meal tomorrow this date.
[2019-06-24] MEDS: ROCEPHIN 1 GM/50 ML D5W 1 GM/50 ML BAG IV SCH (16:11)
[2019-06-24] MEDS: ZITHROMAX PO SCH (16:11)
[2019-06-24] MEDS: PULMICORT 0.5 MG/2 ML NEB SCH (17:03)
[2019-06-24] MEDS: CARAFATE PO SCH ×2 (17:12→20:17)
[2019-06-24] MEDS: PROTONIX PO SCH (17:13)
[2019-06-24] MEDS ORDERED: COREG PO SCH (17:30)
[2019-06-24] MEDS: ADVAIR 250-50 DISKUS IH SCH (20:17)
[2019-06-24] MEDS: IPRATROPIUM BROMIDE NAS SCH (20:54)
[2019-06-25] MEDS: TYLENOL PO PRN ×3 (02:13→12:36)
[2019-06-25] MEDS: XOPENEX 1.25 MG NEB SCH ×4 (04:30→22:30)
[2019-06-25] MEDS: PULMICORT 0.5 MG/2 ML NEB SCH ×2 (04:30→17:15)
[2019-06-25 04:48] LABS: HEMATOCRIT 31.2 % (37.0-47.0)
[2019-06-25] MEDS: PROTONIX PO SCH ×2 (05:44→18:11)
[2019-06-25] MEDS: CARAFATE PO SCH ×4 (05:44→20:07)
[2019-06-25] MEDS ORDERED: SODIUM CHLORIDE 1,000 ML IV SCH (08:00)
[2019-06-25] MEDS ORDERED: COREG PO SCH (08:00)
[2019-06-25] MEDS: LEXAPRO PO SCH (09:00)
[2019-06-25] MEDS: K-DUR PO SCH (09:00)
[2019-06-25] MEDS ORDERED: PREDNISONE PO SCH (09:00)
[2019-06-25] MEDS: HYZAAR 50-12.5 MG TAB PO SCH (09:00)
[2019-06-25] MEDS: ROCEPHIN 1 GM/50 ML D5W 1 GM/50 ML BAG IV SCH (09:00)
[2019-06-25] MEDS: XANAX PO SCH ×3 (09:01→20:07)
[2019-06-25] MEDS: COMBIVENT RESPIMAT INHALER IH SCH ×5 (09:01→20:06)
[2019-06-25] MEDS: ZITHROMAX PO SCH (09:01)
[2019-06-25] MEDS: PREDNISONE PO SCH (09:01)
[2019-06-25] MEDS: ADVAIR 250-50 DISKUS IH SCH ×2 (09:01→20:06)
--- NOTE | 2019-06-25 09:04 | PCM.PROG ---
Attending Provider: ATTENDING PROVIDER: Dr. RAISA RASCON This patient is seen with Brooke Wesley, Nurse Practitioner. DATE OF SERVICE: 06/25/19 SUBJECTIVE: This 78 year old /WHITE F was hospitalized 06/24/19. The patient is alert and resting comfortably in bed. She is complaining of lower right rid pain. She thinks this maybe related to coughing. She states that she is feeling better today. REVIEW OF SYSTEMS: CONSTITUTIONAL: No night sweats. Fatigue. No fever or chills. Weakness. HEENT: Eyes: No visual changes. No eye pain. No eye discharge. ENT: No runny nose. No epistaxis. No sinus pain. No odynophagia. No congestion. RESPIRATORY: Cough, no congestion. No hemoptysis. Shortness of breath. CARDIOVASCULAR: No angina symptoms. No CHF symptoms. No atypical chest pain for CAD. No palpitations. No orthopnea.. GASTROINTESTINAL: No abdominal pain. No nausea or vomiting. No diarrhea or constipation. No hematemesis. No hematochezia. GENITOURINARY: No urgency. No frequency. No dysuria. No hematuria. No obstructive symptoms. No discharge. No pain. No significant abnormal bleeding. MUSCULOSKELETAL: No musculoskeletal pain; no joint swelling. Right rib pain. NEUROLOGICAL: Awake, alert, oriented to time, place and person. No headache. No neck pain. No syncope. No seizures. No dizziness. PSYCHIATRIC: Not anxious. No depression. No suicidal thoughts. No homicidal thoughts. SKIN: No rash. No lesions. No wounds. ENDOCRINE: No unexplained weight loss. No weight gain. HEMATOLOGIC/LYMPHATIC: No anemia. No purpura. No petechiae. No prolonged or excessive bleeding. No palpable lymph nodes. PHYSICAL EXAMINATION: GENERAL: The patient is awake, alert and oriented, lying in bed in no distress. VITAL SIGNS: Temperature 98.1 F, Pulse 76, Respiratory Rate 20, BP 88/51, Pulse Ox 91% HEENT: Head normocephalic, atraumatic. Eyes: Extraocular muscles are intact. Pupils are equal, round and reactive to light and accommodation. Ears: No lesions. Nose appeared normal. Throat: No exudate or erythema. NECK: Supple. No JVD, no carotid bruit. No lymphadenopathy or thyromegaly. LUNGS: Bilateral expiratory wheezing. Clear to auscultation. Percussion note normal. Chest symmetrical. HEART: S1, S2, no S3. No murmurs. No cyanosis or clubbing. No ascites. Pulses: Dorsalis pedis and posterior tibial pulses +1 to +2 both sides. ABDOMEN: Soft. Non-tender. Bowel sounds active. No CVA tenderness. No mass felt. EXTREMITIES: No edema. Full range of motion of all extremities, equal. NEUROLOGIC: No focal deficit. Cranial nerves II through XII are grossly intact. No headache, no double vision or headache. SKIN: Not dry. Intact. Turgor-normal. LYMPHATIC: No palpable lymph nodes/no lymphedema. MUSCULOSKELETAL: Normal joints with no swelling. Muscle tone is normal. LAB REVIEW: 06/25/19 04:14 06/25/19 04:14 06/25/19 04:14: PT 41.5 H D, INR 4.61 H* D 06/25/19 04:14: Sodium 128.6 L, Potassium 4.12, Chloride 97.2 L, Carbon Dioxide 24.5, Anion Gap 11.02, BUN 28.5 H, Creatinine 1.67 H, Estimated GFR (MDRD) 30.00 , BUN/Creatinine Ratio 17.06, Glucose 127.9 H, Calcium 9.88, Total Bilirubin 0.35, AST 22.8, ALT 16.5, Alkaline Phosphatase 99.9, Total Protein 6.10 L, Albumin 3.10 L, Globulin 3.00, Albumin/Globulin Ratio 1.03 06/25/19 04:14: WBC 12.70 H, RBC 3.55 L, Hgb 10.1 L, Hct 31.2 L, MCV 87.9, MCH 28.5, MCHC 32.4, RDW Coeff of Elie 15.4 H, Plt Count 329, Immature Gran % (Auto) 0.8, Neut % (Auto) 79.7 H, Lymph % (Auto) 10.6, [place] % (Auto) 7.7, Eos % (Auto) 0.7, Baso % (Auto) 0.5, Immature Gran # (Auto) 0.1, Neut # (Auto) 10.1 H, Lymph # (Auto) 1.3, [place] # (Auto) 1.0, Eos # (Auto) 0.1, Baso # (Auto) 0.1 06/24/19 19:45: Total Creatine Kinase < 20.0 L, Troponin I < 0.012 06/24/19 18:00: Urine Color Yellow, Urine Clarity Clear, Urine pH 6.5, Ur Specific [place] 1.015, Urine Protein Negative, Urine Glucose (UA) Negative, Urine Ketones Negative, Urine Blood Negative, Urine Nitrite Negative, Urine Bilirubin Negative, Urine Urobilinogen 0.2, Ur Leukocyte Esterase Trace H, Urine Microscopic WBC 2-5, Ur Squamous Epith Cells 10-20, Urine Bacteria Trace, Hyaline Casts 0-2, Urine Mucus 1+ 06/24/19 12:10: WBC 13.95 H, RBC 3.79 L, Hgb 10.9 L, Hct 33.4 L, MCV 88.1, MCH 28.8, MCHC 32.6, RDW Coeff of Elie 15.2 H, Plt Count 314, Immature Gran % (Auto) 1.0, Neut % (Auto) 82.2 H, Lymph % (Auto) 7.7 L, [place] % (Auto) 8.2, Eos % (Auto) 0.6, Baso % (Auto) 0.3, Immature Gran # (Auto) 0.1, Neut # (Auto) 11.5 H, Lymph # (Auto) 1.1, [place] # (Auto) 1.2, Eos # (Auto) 0.1, Baso # (Auto) 0.0 06/24/19 12:10: PT 85.2 H, INR 9.89 H* 06/24/19 11:49: Puncture Site Lrad, O2 Saturation 92.0 L, ABG pH 7.398, ABG pCO2 37.5, ABG pO2 63.0 L, ABG HCO3 23.1, ABG Total CO2 24, ABG Base Excess -2, [place] Test +, O2 Delivery Device Nc, Oxygen Liter Flow 2.00 06/24/19 11:45: Sodium 128.2 L, Potassium 4.90, Chloride 93.4 L, Carbon Dioxide 28.4, Anion Gap 11.30, BUN 25.5 H, Creatinine 1.55 H, Estimated GFR (MDRD) 33.00, BUN/Creatinine Ratio 16.45, Glucose 91.4, Calcium 9.99, Total Bilirubin 0.36, AST 26.2, ALT 17.5, Alkaline Phosphatase 114.3, Total Creatine Kinase < 20.0 L, Troponin I < 0.012, Total Protein 6.55, Albumin 3.40 L, Globulin 3.15, Albumin/Globulin Ratio 1.07 ASSESSMENT: Please see below. 1. Pneumonia, right lower lobe 2. Coagulopathy, improving. PLAN: 1. Hold Coumadin 2. Normal saline 1 liter at 50cc 3. Decrease Coreg 3.125 4. Continue Rocephin 5. Boost nutritional supplement twice a day 6. Incentive Spirometer 7. Encourage the patient to get up and sit in the chair. Plan and coordination of the patient's care discussed in the presence of Brewing Director and nurse. SCRIBED BY: LEE RODRIGUEZ Electrical Systems Drafter scribed while in presence of service performed by Dr. Rascon/Brooke Wesley APRN on 06/25/19 ([id number])
[2019-06-25] MEDS: IPRATROPIUM BROMIDE NAS SCH (09:06)
--- NOTE | 2019-06-25 11:09 | RS.OTINEVL ---
Subjective - Patient information Date of Evaluation: 05/08/17 Date of Arrival on Unit: 06/24/19 Admitted From:: Home Diagnosis: Pneumonia PRECAUTIONS: rib pain, Weakness Usual Living Arrangement: With Spouse Living Arrangement Comments: lives with spouse, dtrs live in the area. Home Environment: House, Stairs (few) (3 steps), Rail Medical History: COPD, Arthritis Medical History Comments:: pulmonary fibrosis, GERD, osteopenia, cervical radiculopathy, poly arthritis, gout, R shld injury LATEX ALLERGY?: No Surgical History: Hysterectomy Surgical History Comments:: appey Medications: see chart Subjective Information/ Patient Comments:: "My rib is killing me." - Level of function Prior to this admission, the patient could do the following:: Independent Selfcare, Independent ADL's, Independent Ambulation Abilities prior to this admission: Pt went home and was using a rollator walker to walk. Pt was doing her ADLS and the became more sick and was not able to complete her self cares at home. Current Level of Function: Partially Dependent Current Equipment Used at Home: Oxygen, nebulizer, shower chair, walker, rollator Pain Assessment - Pain Pain Score: 8 Side: right Pain Location Body Site: rib Pain Aggravating Factors: ADL's, Exercise/Activity Pain Alleviating Factors: Position Change (Pt was positioned with a pillow to decrease her pain.) Interventions - Objective Patient Orientation: Person, Place, Time, Situation Current Interventions: IV's, Oxygen, Telemetry Observation: Pt is very weak and props herself up on furniture to breathe and catch her breath. Interventions - ROM Right Upper Extremity AROM: Slight limitation Left Upper Extremity AROM: WFL's - Strength Right Upper Extremity Strength: Mild Weakness Left Upper Extremity Strength: Mild Weakness - Sensation Right Upper Extremity Sensation: Intact/Normal Left Upper Extremity Sensation: Intact/Normal Balance - Sitting Balance Static Sitting Balance: Fair Dynamic Sitting Balance: Fair - Comments Balance Assessment Comments: Pt using a rolling walker. ADL Skills - Self Feeding Self Feeding: Independent - Grooming Grooming: Independent - Bathing Bathing UE: Independent Bathing LE: Min Assist - Dressing Dressing UE: Independent Dressing LE: Min Assist - Toilet Management Toileting Management: CGA Functional Mobility - Bed Mobility Rolling R/L: Independent Scooting: Independent Supine to Sit: Independent Sit to Supine: Independent - Transfers Sit to Stand: Min Assist Stand to Sit: Min Assist Stand Pivot Transfers: Min Assist - Safety Awareness Safety Awareness: Good MARYJO INDEX SCORE: . Additional Treatment Performed - Time with patient Length of Evaluation: 23 Total treatment time: 20 Activities Do you enjoy playing games?: Yes Would you be interested in leaving your room for activities?: Yes Would you enjoy group activities?: Yes Do you have difficulty with your vision?: Yes Patient Interests:: Watching Television, Visiting/Socializing Patient Education Patient Education: Education of diagnosis, Home Exercise Program, Home Safety, Education of Plan of Care Teaching Recipient: Patient Teaching Methods: Discussion Assessment Problem List:: Decreased level of function, Decreased safety/Risk of falls, Weakness, Pain limits previous level of function Rehab Potential: Fair Further Therapy Indicated?: Yes Evaluation Complexity: HISTORY: Medium, EXAM OF BODY SYSTEMS: Medium, CLINICAL DECISION MAKING: Medium Patient's Goal(s): To stop hurting and be able to go home. Short Term Goals - Goals GOAL 1: Pt to tolerate sink level ADLS CGA. Goal to be met by: 07/01/19 GOAL 2: Pt to increase BUE strength to 4/5. Goal to be met by: 07/01/19 GOAL 3: Pt to tolerate isometric BUE shoulder exercises. Goal to be met by: 07/01/19 Engineering Faculty Goals GOAL 1: Pt to be I with ADLS while using a RW. Goal to be met by: 07/06/19 GOAL 2: Pt to increase BUE strength to 4+/5. Goal to be met by: 07/06/19 GOAL 3: Pt to be I with HEP. Goal to be met by: 07/06/19 Plan Duration of Treatment: 1 Week Anticipated Discharge Destination: Home Treatment Diagnosis (ICD 10 Codes): Muscle weakness M62.81, Z74.1 Need for assistance with personal care. Has the Physician been added for Co-signature?: Yes
--- NOTE | 2019-06-25 14:15 | RS.BEDDYS ---
Subjective Date of Evaluation: 06/25/19 Diagnosis: SOB, weakness Current Level of Function: This 78 year old female resides at home with her . She receives assistance from her family with ADLs. Currently, she reported increased difficulty with swallowing due to a hiatal hernia. At this time, she complains of food sticking with every meal and she has reduced PO intake. She has minimal risk for aspiration/penetration. She has a risk for decreased PO intake or malnutrition due to average PO intake with each meal. Current Diet: Regular diet texture with thin liquids. Current Subjective/complaints:: The patient's primary complaint is food stuck at the level of UES, not able to swallow food or drink, afraid of regurgitation with food and drink, and pain with food feeling stuck in esophagus. Pt states these symptoms have been exacerbated recently. She has reduced her PO intake at this time and stops eating when any symptom occurs. The patient goes on to report she easily fatigues with meals and becomes SOB when eating and drinking. Swallowing requires multiple attempts to clear food from esophagus. The TIE TAPE MACHINE OPERATOR observed multiple behaviors to change in order to alleviate her symptoms. Medical History Comments:: HTN, Pnuemonia, COPD, asthma, Hx Home Medications: Refer to medications for complete list. Patient's Goals: To reduce sensation of food stuck in esophagus. General Information - General Ability to Follow Directions: Excellent Is Patient able to Repeat Directions?: Yes Oral Expression Ability: No Impairment - Voice Voice Quality: Harsh Oral-Facial Assessment - Face Facial Symmetry: Symmetrical Facial Movement: Controlled - Dental/Labial Mouth Occlusion: Normal Lip Protrusion: Normal Lip Retraction: Normal Puff Cheeks: Normal - Lingual Protrusion: Normal Retraction: Normal Tip Lateralization: Normal Repeated Tip Lateralization: Normal Tip Elevation: Normal Repeated Tip Elevation: Normal Food Presentation - Solids Food Presented: Regular (Self-fed with utensils) Behaviors/Comments: Pt took medium to large bite sizes with verbal cues from TIE TAPE MACHINE OPERATOR. Pt frequently used effortful swallow or chin down posture to swallow food. She reported food was stuck multiple times. TIE TAPE MACHINE OPERATOR provided technqiues to decrease food sticking. - Liquids Liquid Presented: Thin (Via open cup, straw) Behaviors/Comments: TIE TAPE MACHINE OPERATOR used cervical ausculation. TIE TAPE MACHINE OPERATOR observed approximatley 75% pass and 25% pool in UES. Pt required two swallows to clear liquids. TIE TAPE MACHINE OPERATOR provided pt with room temperature beverage, this alleviated pooling in UES over a few trials. no overt s/s of aspiration. - Recommendations: Dysphagia Evaluation Dietary Recommendations: Normal Comments:: Regular diet texture with thin liquids. Pt may restrict herself to dry textures or bread due to difficulty with dry mouth. Pt requests STRAWBERRY BOOST as preferred flavor and snack. Dysphagia Swallow Precautions/Strategies: Sitting Upright (90 deg), Liquids from Cup, Liquids from Straw, Alternate Liquids/Solids Comments:: Pt to sit-upright for all meals and maintain upright 30 minutes post meal. Pt needs to moisten mouth prior to medication administration or bites of food. Pt to take medium to large bites to reduce amount of swallowing and increase intake of nutrition. Pt to keep chin in neutral position with all swallow attempts. Wait 20-30 seconds between each bite for pacing and allow esophagus to empty. Smaller more frequent meals will increase daily caloric intake. Drinking room temperature or warm beverages to reduce sphincter tightening. Pt to stop eating if food feels stuck or pt feels unsafe. Typical aspiration precautions and safe swallow precautions to be used. All meds to be offered crushed, but pt can swallow medications whole. - Summary Dysphagia Evaluation Summary: Pt presents with esophageal dysphagia primarily due to hiatal hernia. Oral and pharyngeal phase appear WNL with timely swallow response and adequate laryngeal elevation. Pt has fear associated with swallowing, decreasing amount of PO intake with each meal. Pt also has liquid pooling at level of UES. Pt has minimal risk for aspiration/penetration. Strategies for pacing, posture, and bite size are recommended for best esophageal function. Further Therapy Indicated?: Yes Comments: To continue education and determine if strategies are helpful for increasing PO intake. Rehab Potential: Good Functional Reporting G Codes: n/a Severity Impairment Rationale: n/a Short Term Goals Problem: Hiatal hernia Goal #1: Pt demonstrates pacing techniques with 100% acc w/ PO intake. Goal to be met by: 07/02/19 Problem: Hiatal hernia Goal #2: Pt to demonstrate adequate posture with 100% of PO intake. Goal to be met by: 07/02/19 Problem: Hiatal hernia Goal #3: Pt to demonstrate adequate bite sizes to increase PO intake 100%. Goal to be met by: 07/02/19 Problem: Hiatal hernia Goal #4: Pt to dem/verbalize safe swallowing and comp. swallow strategies 100% Goal to be met by: 07/02/19 Recruit Instructor Goals Problem: Hiatal hernia Goal #1: Pt to report reduced symptoms with PO intake Goal to be met by: 07/02/19 Problem: Decreased PO intake Goal #2: Pt to consume adequate PO intake 100% of opp. Goal to be met by: 07/02/19 Plan Duration of Treatment: 1 Week Frequency of Treatment: 2-3x/week Anticipated Discharge Destination: Home Comments: TIE TAPE MACHINE OPERATOR provided pt with printed instructions to use for all PO intake. Instructions at pt's bedside. - Treatment Code (1) Esophageal dysphagia Code(s): R13.14 - Dysphagia, pharyngoesophageal phase
[2019-06-25] MEDS: COREG PO SCH (18:11)
[2019-06-26] MEDS: IPRATROPIUM BROMIDE NAS SCH ×3 (00:47→21:16)
[2019-06-26] MEDS: XOPENEX 1.25 MG NEB SCH ×4 (04:50→22:21)
[2019-06-26] MEDS: PULMICORT 0.5 MG/2 ML NEB SCH ×2 (04:50→17:27)
[2019-06-26] MEDS: PROTONIX PO SCH ×2 (05:33→17:09)
[2019-06-26] MEDS: CARAFATE PO SCH ×4 (05:33→20:13)
[2019-06-26] MEDS: COMBIVENT RESPIMAT INHALER IH SCH ×4 (08:48→20:13)
[2019-06-26] MEDS: XANAX PO SCH ×3 (08:48→20:13)
[2019-06-26] MEDS: PREDNISONE PO SCH (08:48)
[2019-06-26] MEDS: ROCEPHIN 1 GM/50 ML D5W 1 GM/50 ML BAG IV SCH (08:48)
[2019-06-26] MEDS: ADVAIR 250-50 DISKUS IH SCH ×2 (08:48→20:13)
[2019-06-26] MEDS: K-DUR PO SCH (08:48)
[2019-06-26] MEDS: COREG PO SCH ×2 (08:48→17:09)
[2019-06-26] MEDS: LEXAPRO PO SCH (08:49)
[2019-06-26] MEDS: ZITHROMAX PO SCH (08:49)
[2019-06-26] MEDS: HYZAAR 50-12.5 MG TAB PO SCH (08:49)
[2019-06-26] MEDS: ZOSYN 3.375 GM 3.375 GM in SODIUM CHLORIDE 50 ML IV SCH ×3 (12:23→23:14)
[2019-06-27 04:26] LABS: HEMATOCRIT 28.5 % (37.0-47.0)
[2019-06-27] MEDS: PULMICORT 0.5 MG/2 ML NEB SCH ×2 (04:42→17:55)
[2019-06-27] MEDS: XOPENEX 1.25 MG NEB SCH ×4 (04:42→22:30)
[2019-06-27] MEDS: CARAFATE PO SCH ×4 (06:08→20:20)
[2019-06-27] MEDS: ZOSYN 3.375 GM 3.375 GM in SODIUM CHLORIDE 50 ML IV SCH ×4 (06:08→23:09)
[2019-06-27] MEDS: PROTONIX PO SCH ×2 (06:08→17:05)
[2019-06-27] MEDS: COMBIVENT RESPIMAT INHALER IH SCH ×4 (08:01→20:21)
[2019-06-27] MEDS: HYZAAR 50-12.5 MG TAB PO SCH (08:01)
[2019-06-27] MEDS: ADVAIR 250-50 DISKUS IH SCH ×2 (08:01→20:21)
[2019-06-27] MEDS: PREDNISONE PO SCH (08:01)
[2019-06-27] MEDS: XANAX PO SCH ×3 (08:02→20:21)
[2019-06-27] MEDS: COREG PO SCH ×2 (08:02→17:05)
[2019-06-27] MEDS: LEXAPRO PO SCH (08:02)
[2019-06-27] MEDS: IPRATROPIUM BROMIDE NAS SCH ×2 (08:02→20:49)
[2019-06-27] MEDS: K-DUR PO SCH (08:02)
[2019-06-28] MEDS: XOPENEX 1.25 MG NEB SCH (04:30)
[2019-06-28] MEDS: PULMICORT 0.5 MG/2 ML NEB SCH (04:30)
[2019-06-28 05:16] LABS: HEMATOCRIT 31.8 % (37.0-47.0)
[2019-06-28 06:02] VITALS: BP 126/66; TEMP 98.4
[2019-06-28] MEDS: PROTONIX PO SCH (06:13)
[2019-06-28] MEDS: ZOSYN 3.375 GM 3.375 GM in SODIUM CHLORIDE 50 ML IV SCH (06:13)
[2019-06-28] MEDS: CARAFATE PO SCH (06:13)
[2019-06-28] MEDS: COMBIVENT RESPIMAT INHALER IH SCH (08:19)
[2019-06-28] MEDS: ADVAIR 250-50 DISKUS IH SCH (08:19)
[2019-06-28] MEDS: COREG PO SCH (08:19)
[2019-06-28] MEDS: K-DUR PO SCH (08:20)
[2019-06-28] MEDS: XANAX PO SCH (08:21)
[2019-06-28] MEDS: LEXAPRO PO SCH (08:21)
[2019-06-28] MEDS: PREDNISONE PO SCH (08:21)
[2019-06-28] MEDS: HYZAAR 50-12.5 MG TAB PO SCH (08:22)
[2019-06-28] MEDS: IPRATROPIUM BROMIDE NAS SCH (08:24)
--- NOTE | 2019-06-28 08:59 | PCM.PROG ---
Attending Provider: ATTENDING PROVIDER: Dr. RAISA RASCON This patient is seen with Brooke Wesley, Nurse Practitioner. DATE OF SERVICE: 06/28/19 SUBJECTIVE: This 78 year old /WHITE F was hospitalized 06/24/19 resting comfortably in bed. Shortness of breath has improved. The patient is only getting up to go to the bathroom. I encouraged her to get up out of bed. She is doing band therapy on her own. She has had fair meal intake. She is still coughing up yellowish blood-tinged sputum. REVIEW OF SYSTEMS: CONSTITUTIONAL: Weakness and fatigue. No night sweats. No malaise, lethargy. No fever or chills. HEENT: Eyes: No visual changes. No eye pain. No eye discharge. ENT: No runny nose. No epistaxis. No sinus pain. No odynophagia. No congestion. RESPIRATORY: Cough productive of yellowish blood-tinged sputum. No hemoptysis. No shortness of breath. CARDIOVASCULAR: No angina symptoms. No CHF symptoms. No atypical chest pain for CAD. No palpitations. No orthopnea.. GASTROINTESTINAL: Appetite is fair. No abdominal pain. No nausea or vomiting. No diarrhea or constipation. No hematemesis. No hematochezia. GENITOURINARY: No urgency. No frequency. No dysuria. No hematuria. No obstructive symptoms. No discharge. No pain. No significant abnormal bleeding. MUSCULOSKELETAL: No musculoskeletal pain; no joint swelling. NEUROLOGICAL: Awake, alert, oriented to time, place and person. No headache. No neck pain. No syncope. No seizures. No dizziness. PSYCHIATRIC: Not anxious. No depression. No suicidal thoughts. No homicidal thoughts. SKIN: No rash. No lesions. No wounds. ENDOCRINE: No unexplained weight loss. No weight gain. HEMATOLOGIC/LYMPHATIC: No anemia. No purpura. No petechiae. No prolonged or excessive bleeding. No palpable lymph nodes. PHYSICAL EXAMINATION: GENERAL: The patient is awake, alert and oriented, lying/sitting in bed in no distress. VITAL SIGNS: Temperature 98.4 F, Pulse 79, Respiratory Rate 16, BP 126/66, Puls e Ox 95% HEENT: Head normocephalic, atraumatic. Eyes: Extraocular muscles are intact. Pupils are equal, round and reactive to light and accommodation. Ears: No lesions. Nose appeared normal. Throat: No exudate or erythema. NECK: Supple. No JVD, no carotid bruit. No lymphadenopathy or thyromegaly. LUNGS: Decreased breath sounds with improving expiratory wheeze. Percussion note normal. Chest symmetrical. HEART: S1, S2, no S3. No murmurs. No cyanosis or clubbing. No ascites. Pulses: Dorsalis pedis and posterior tibial pulses +1 to +2 both sides. ABDOMEN: Soft. Non-tender. Bowel sounds active. No CVA tenderness. No mass felt. EXTREMITIES: No edema. Full range of motion of all extremities, equal. NEUROLOGIC: No focal deficit. Cranial nerves II through XII are grossly intact. No headache, no double vision or headache. SKIN: Warm and dry. Intact. Turgor-normal. LYMPHATIC: No palpable lymph nodes/no lymphedema. MUSCULOSKELETAL: Normal joints with no swelling. Muscle tone is normal. LAB REVIEW: 06/28/19 05:08 06/28/19 05:08 06/28/19 05:08: Sodium 134.1 L, Potassium 3.57, Chloride 95.8 L, Carbon Dioxide 34.2 H, Anion Gap 7.67, BUN 19.5 H, Creatinine 0.83, Estimated GFR (MDRD) 67.00, BUN/Creatinine Ratio 23.49, Glucose 77.1, Calcium 10.07, Total Bilirubin 0.16 L, AST 32.2, ALT 19.5, Alkaline Phosphatase 115.2, Total Protein 6.34, Albumin 3.16 L, Globulin 3.18, Albumin/Globulin Ratio 0.99 06/28/19 05:08: PT 37.4 H D, INR 4.14 H* 06/28/19 05:08: WBC 12.26 H, RBC 3.52 L, Hgb 10.0 L, Hct 31.8 L, MCV 90.3, MCH 28.4, MCHC 31.4 L, RDW Coeff of Elie 15.3 H, Plt Count 281, Immature Gran % (Auto) 0.7, Neut % (Auto) 79.8 H, Lymph % (Auto) 12.6, [place] % (Auto) 6.1, Eos % (Auto) 0.5, Baso % (Auto) 0.3, Immature Gran # (Auto) 0.1, Neut # (Auto) 9.8 H, Lymph # (Auto) 1.5, [place] # (Auto) 0.8, Eos # (Auto) 0.1, Baso # (Auto) 0.0 ASSESSMENT: Please see below. 1. Pneumonia, right lower lobe 2. Coagulopathy, improving. PLAN: 1. Continue to hold Coumadin. 2. Continue Zosyn. 3. Continue to encourage be up and about. 4. Incentive spirometry. 5. The patient will be evaluated for swing bed. Plan and coordination of the patient's care discussed in the presence of Operater and nurse. CONDITION: Stable SCRIBED BY: ZO DANG Admissions Manager scribed while in presence of service performed by Dr. Rascon/Brooke Wesley APRN on 06/28/19 ([id number])
--- NOTE | 2019-06-28 10:24 | CM.DICTOOL ---
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) POLYARTHRITIS GERD ANXIETY PLEURITIC PAIN LEFT LUNG OSTEOPENIA (PROLIA) CATARACT SURGERY, LEFT 06/2018 HYSTERECTOMY, PFT: SEVERE COPD (05/2018) ECHOCARDIOGRAM: ENLARGED RIGHT VENTRICLE MILD AORTIC STENOSIS LVEF 76% (03/2019) LAST VITALS Temp Pulse Resp BP Pulse Ox 98.4 F 79 19 126/66 95 06/28/19 06:00 06/28/19 06:00 06/28/19 08:00 06/28/19 06:00 06/28/19 06:00 TAKE THESE MEDICATIONS AT HOME Acetaminophen (Tylenol) 650 mg PO Q4H PRN PRN Reason: Headache Last Admin: 06/25/19 12:36 Dose: 650 mg Documented by: Albuterol/Ipratropium (Combivent Respimat Inhal [place]) 1 spray IH QID [facility] Last Admin: 06/28/19 08:19 Dose: 1 spray Documented by: Alprazolam (Xanax) 0.25 mg PO TID [facility] Last Admin: 06/28/19 08:21 Dose: 0.25 mg Documented by: Atropine Sulfate (Atropine Sulfate Pfs) 0.5 mg IVP ONCE PRN PRN Reason: Symptomatic Bradycardia Budesonide (Pulmicort 0.5 Mg/2 Ml) 0.5 mg NEB RTBID [facility] Last Admin: 06/28/19 04:30 Dose: 0.5 mg Documented by: Carvedilol (Coreg) 3.125 mg PO BIDWM [facility] Last Admin: 06/28/19 08:19 Dose: 3.125 mg Documented by: Escitalopram Oxalate (Lexapro) 10 mg PO DAILY [facility] Last Admin: 06/28/19 08:21 Dose: 10 mg Documented by: HCTZ/Losartan Potassium (Hyzaar 50-12.5 Mg Tab) 1 tab PO DAILY [facility] Last Admin: 06/28/19 08:22 Dose: 1 tab Documented by: Hydroxyzine HCl (Vistaril Inj) 25 mg IM Q4H PRN PRN Reason: Nausea/Vomiting/Restlessness Piperacillin Sod/Tazobactam (Sod 3.375 gm/ Sodium Chloride) 50 mls @ 50 mls/hr IV Q6HR [facility] Stop: 06/29/19 11:59 Last Admin: 06/28/19 06:13 Dose: 50 mls/hr Documented by: Levalbuterol HCl (Xopenex 1.25 Mg) 1.25 mg NEB RTQ6H [facility] Last Admin: 06/28/19 04:30 Dose: 1.25 mg Documented by: Nitroglycerin (Nitrostat) 0.4 mg SL Q5MIN X 3 DOSES PRN PRN Reason: Chest Pain Non-Formulary Medication (Ipratropium [place]) 2 spray EDWIN BID [facility] Last Admin: 06/28/19 08:24 Dose: Not Given Documented by: Pantoprazole Sodium (Protonix) 40 mg PO BIDAC [facility] Last Admin: 06/28/19 06:13 Dose: 40 mg Documented by: Potassium Chloride (K-Dur) 20 meq PO DAILYWM [facility] Last Admin: 06/28/19 08:20 Dose: 20 meq Documented by: Prednisone (Prednisone) 20 mg PO DAILYWM [facility] Last Admin: 06/28/19 08:21 Dose: 20 mg Documented by: Fluticasone/Salmeterol (Advair 250-50 Diskus) 1 puff IH BID [facility] Last Admin: 06/28/19 08:19 Dose: 1 puff Documented by: Sodium Chloride (Saline Flush) 1 syr IVF Q8HR [facility] Last Admin: 06/28/19 06:13 Dose: 1 syr Documented by: Sucralfate (Carafate) 1 gm PO ACHS [facility] Last Admin: 06/28/19 06:13 Dose: 1 gm Documented by: ALLERGIES ciprofloxacin [From Cipro] Adverse Reaction (Verified 06/01/19 12:20) hydrocodone Adverse Reaction (Verified 06/01/19 12:20) Abdominal Pain gi cocktail Adverse Reaction (Uncoded 06/01/19 14:27) DISCONTINUED MEDICATIONS COREG 6.25 MG COUMADIN 4 MG IS ON HOLD DUE TO ELEVATED PT/INR NEW PRESCRIPTIONS: PULMICORT NEBS BID (0.5 MG) XOPENEX NEBS Q 6 HOURS PIPERACILLIN SOD/TAZOBACTAM SOD 3.375 GRAM IV Q 6 HOURS COREG 3.125 MG BID SMOKING: NOT APPLICABLE DISEASE SPECIFIC EDUCATION: IMPORTANCE OF INCREASING ACTIVITY TRANSITIONAL CARE (SWING BED) CONTINUATION OF IV ANTIBIOTIC LAB REVIEW: 06/28/19 05:08 06/28/19 05:08 06/28/19 05:08: Sodium 134.1 L, Potassium 3.57, Chloride 95.8 L, Carbon Dioxide 34.2 H, Anion Gap 7.67, BUN 19.5 H, Creatinine 0.83, Estimated GFR (MDRD) 67.00, BUN/Creatinine Ratio 23.49, Glucose 77.1, Calcium 10.07, Total Bilirubin 0.16 L, AST 32.2, ALT 19.5, Alkaline Phosphatase 115.2, Total Protein 6.34, Albumin 3.16 L, Globulin 3.18, Albumin/Globulin Ratio 0.99 06/28/19 05:08: PT 37.4 H D, INR 4.14 H* 06/28/19 05:08: WBC 12.26 H, RBC 3.52 L, Hgb 10.0 L, Hct 31.8 L, MCV 90.3, MCH 28.4, MCHC 31.4 L, RDW Coeff of Elie 15.3 H, Plt Count 281, Immature Gran % (Auto) 0.7, Neut % (Auto) 79.8 H, Lymph % (Auto) 12.6, [place] % (Auto) 6.1, Eos % (Auto) 0.5, Baso % (Auto) 0.3, Immature Gran # (Auto) 0.1, Neut # (Auto) 9.8 H, Lymph # (Auto) 1.5, [place] # (Auto) 0.8, Eos # (Auto) 0.1, Baso # (Auto) 0.0 PLAN: DISCHARGE TO TRANSITIONAL CARE DIET: REGULAR TOLERATED BOOST SUPPLEMENT BID (STRAWBERRY) ACTIVITY: TO BATHROOM WITH ASSISTANCE UP TO CHAIR FOR MEALS PHYSICAL AND OCCUPATIONAL THERAPY EVALUATION OXYGEN AT 2 LITERS PER NASAL CANNULA CONTINUE NEBS ENCOURAGE USE OF INCENTIVE SPIROMETRY AT LEAST QID (BETWEEN NEBS) PT/INR DAILY ADD LABS AT LEAST EVERY OTHER DAY CONTINUE MEDICATIONS CODE STATUS: DNR 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 SHE IS INDEPENDENT WITH FEEDING. SHE IS PARTIALLY DEPENDENT FOR BATHING, DRESSING. SHE UTILIZES A ROLLATOR OR ROLLING WALKER AND STAFF ASSIST FOR AMBULATION. SHE IS CONTINENT OF BOWEL AND BLADDER. SHE IS OXYGEN DEPENDENT AT 2 LITERS PER NASAL CANNULA AT REST, BUT MAY REQUIRE INCREASE TO 2.5 OR 3 LITERS WITH AMBULATION. TRANSITIONAL CARE HAS BEEN DISCUSSED WITH MRS. STEINBERG AND HER DAUGHTER, BRYSON PEREA. BOTH ARE AGREEABLE TO TRANSITIONAL CARE FOR CONTINUATION OF IV ANTIBIOTICS AND THERAPY. MRS. STEINBERG LIVES AT HOME WITH HER SPOUSE AND DESIRES TO RETURN HOME AT DISCHARGE. HYDRATION IS GOOD. SKIN IS INTACT. MD TERESA SMILEY, GRADUATE CIVIL ENGINEER
--- NOTE | 2019-06-28 11:36 | OTDC ---
Date of Evaluation:06/24/19 Diagnosis:[Pneumonia] Number of visits:[] Last Date of Service:[06/25/19] Reason For Discharge:[Pt discharged to swing bed.] Discharge Summary:[Pt discharged to swing bed] ANETA
--- NOTE | 2019-06-28 11:56 | HP ---
DATE OF SERVICE: 06/24/2019 REASON FOR HOSPITALIZATION/HISTORY OF PRESENT ILLNESS: 78 year old white female presented to the office for a hospital followup. All records from [facility] reviewed and discussed. The patient complains of cough, fatigue and weakness. She does not want to get up and only getting out of bed for breathing treatments and toileting. The patient has scheduled DUO NEBS at home. The patient has lost 8 pounds. Her INR was >8. There are no signs of symptoms of CHF/CAD. 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 Peterson O2 dependant Chronic bronchitis Pleuritic pain left lung Status post left cataract surgery 07-07 Cervical radiculopathy Osteopenia Prolia Lung nodule resolved, Dr. Peterson PAST SURGICAL HISTORY: Hysterectomy REVIEW OF SYSTEMS: CONSTITUTIONAL: No fever, Fatigue. HEENT: No sinus drainage, no sore throat. RESPIRATORY: Cough, no congestion. CARDIOVASCULAR: No atypical chest pain for coronary artery disease. No angina, CHF symptoms, palpitations. Shortness of breath with minimal exertion. GASTROINTESTINAL: No melena or abdominal pain. No GERD. GENITOURINARY: No hematuria, no prostatism, no polyuria. ANALYSIS MANAGER: No blackout, no dizziness, no headache, no double vision. GAIT: Weakness- wheelchair. MUSCULOSKELETAL: Osteoarthritis pain, no joint swelling. ENDOCRINE: Weight loss lost 8 pounds, no weight gain. SKIN: Not dry, no rash. PSYCHIATRIC: Not anxious, no depression, no suicidal thoughts, no homicidal thoughts. SOCIAL HISTORY: Marital Status: . Alcohol Usage: No. Tobacco Usage: Quit 2014 . FAMILY HISTORY: Father - Liver disease Mother -COPD Brother one CA of liver Sister one kidney disease MEDICATIONS: O2 at 2 liters nasal canula daily Tramadol 50mg BID Ativan 0.5mg BID Coumadin 4mg daily Nasal spray Combivent Inhaler Advair Diskus BID Singular 10mg daily Protonix 40mg PO daily Calcium daily Vitamin D3 K-Tab 20 over the counter four times a day NEB treatment Albuterol BID Prednisone 20mg + left [id number] Dr. Peterson Carafate 1gram QID Xanax 0.25mg TID Coreg 6.25mg BID Lexapro 10mg PO daily Losartan 50-12.5mg daily ALLERGIES: Cipro Hydrocodone GI cocktail PHYSICAL EXAMINATION: V/S: pulse 72, blood pressure 96/50, temperature 98, O2 saturation 88% on O2 2 liters nasal cannula, BMI 16, height 5.7, weight 102.6. GENERAL APPEARANCE: Oriented times three. HEENT:Pallor. NECK: No JVP, no bruits. RESPIRATORY: Cough. Coarse bilateral expiratory wheezing. CARDIOVASCULAR: S1, S2, no S3, no murmur. No cyanosis, clubbing. No ascites. GI/ABDOMEN: No tenderness. Bowel sounds are active. EXTREMITIES: edema, pulses +1, equal. ANALYSIS MANAGER: Deep tendon reflexes, sensory, motor and gait all normal. RECTAL/PELVIC/PROSTATE: . LABS: ABG pH 7.398, pCO2 37.5, pO2 63, bicarb 23.1 with a sat of 92 that was done on 2 liters nasal cannula. WBC 13.95, hgb 10.9, hct 33.4, plt count 31, sodium 128.2, potassium 4.90, BUN 25.5, creatinine 1.55, AST 26.2, ALT 17.5, PT 85.2, INR 9.89. Chest x-ray showed right lower lobe pneumonia. This was the same as documented before one week prior. ASSESSMENT: 1. Coagulopathy, increased INR >8.0 2. Chronic respiratory failure 3. Acute bronchitis 4. Pulmonary fibrosis 5. Polyarthritis 6. GERD 7. Anxiety 8. History of DVT/PE 9. COPD 3/4 Dr. Peterson O2 dependant 10.Chronic bronchitis 11.Pleuritic pain left lung 12.Status post left cataract surgery 07-07 13.Cervical radiculopathy 14.Osteopenia Prolia 15.Lung nodule resolved, Dr. Peterson PLAN: 1. Admit 2. Routine telemetry 3. Hold Coumadin 4. Stat INR, then daily 5. Vitamin K 2.5mg PO Now 6. Encourage to get up, move etc and walk daily 7. Encourage intake diet/nutrition discussed, no weight loss 8. CBC and CMP daily 9. Chest x-ray 10.Routine telemetry 11.NEBS scheduled Q 6 hourly with Pulmicort BID 12.Continue home medications 13.Regular diet 14.ABG now with oxygen 15.Prednisone 20mg PO Daily TIME SPENT: More than 70 minutes. MTDD
--- NOTE | 2019-06-28 14:56 | PN ---
DATE OF SERVICE: 06/27/2019 SUBJECTIVE: The patient was seen and examined today. The patient's condition has improved. She is feeling a lot better. Appetite has improved. The family is in the room. REVIEW OF SYSTEMS: CONSTITUTIONAL: No night sweats. Still fatigue but getting the strength back. No fever or chills. HEENT: Eyes: No visual changes. No eye pain. No eye discharge. ENT: No runny nose. No epistaxis. No sinus pain. No sore throat. No odynophagia. No congestion. RESPIRATORY: Mild cough with congestion. No hemoptysis. No shortness of breath. CARDIOVASCULAR: No angina symptoms. No CHF symptoms. No atypical chest pain for CAD. No palpitations. No PND. No orthopnea. GASTROINTESTINAL: No abdominal pain. No nausea or vomiting. No diarrhea or constipation. No hematemesis. No hematochezia. Appetite has been improving. GENITOURINARY: No urgency. No frequency. No dysuria. No hematuria. No obstructive symptoms. No discharge. No pain. No significant abnormal bleeding. MUSCULOSKELETAL: No musculoskeletal pain; no joint swelling. NEUROLOGICAL: No headache. No neck pain. No syncope. No seizures. No dizziness. PSYCHIATRIC: Not anxious. No depression. No suicidal thoughts. No homicidal thoughts. SKIN: No rash. No lesions. No wounds. ENDOCRINE: No unexplained weight loss. No weight gain. HEMATOLOGIC/LYMPHATIC: No anemia. No purpura. No petechiae. No prolonged or excessive bleeding. No palpable lymph nodes. PHYSICAL EXAMINATION: VITAL SIGNS: Temperature 98.6, pulse 80, respiratory rate 16, blood pressure 110/60 and pulse ox 95%. HEENT: Head normocephalic, atraumatic. Eyes: Extraocular muscles are intact. Pupils are equal, round and reactive to light and accommodation. Ears: No lesions. Nose appeared normal. Throat: No exudate or erythema. NECK: Supple. No JVD, no carotid bruit. No lymphadenopathy or thyromegaly. LUNGS: Decreased breath sounds with good air entry with mild wheeze. Percussion note normal. Chest symmetrical. HEART: S1, S2, no S3. No murmurs. No cyanosis or clubbing. No ascites. Pulses: Dorsalis pedis and posterior tibial pulses +1 to +2 bilaterally. ABDOMEN: Soft. Nontender. Bowel sounds active. No CVA tenderness. No mass felt. EXTREMITIES: No edema. Full range of motion of all extremities, equal. NEUROLOGIC: No focal deficit. Cranial nerves II through XII are grossly intact. No headache, no double vision or headache. SKIN: Not dry. Intact. Turgor - normal. LYMPHATIC: No palpable lymph nodes/no lymphedema. MUSCULOSKELETAL: Normal joints with no swelling. Muscle tone is normal. LABS: INR still 5.4. The patient is going to be on hold for Coumadin. Hgb 9.2, hct 28, WBC 11,000 normal differential, creatinine 0.9, BUN 18, potassium 4. ASSESSMENT: 1. Acute bronchitis with chronic lung disease seems to be under control 2. Influenza A seems to be under control 3. Coagulopathy still exists, we are going to hold Coumadin CONDITION: Stable. PLAN: 1. Continue antibiotics, steroids and NEBS 2. The patient has pseudomonas so we are changing the antibiotics to Zosyn TIME SPENT: More than 30 minutes. Plan and coordination of the patient's care discussed in the presence of nurse. ANETA
--- NOTE | 2019-06-30 09:59 | PN ---
06/24/2019: Level 5 06/25/2019: Intermediate 06/26/2019: Intermediate 06/27/2019: Intermediate 06/28/2019: D discharge from acute MTDD
--- NOTE | 2019-06-30 09:59 | DS ---
DATE OF SERVICE: 06/28/2019 FINAL DIAGNOSIS: 1. COAGULOPATHY (INR GREATER THAN 8 IN OFFICE) 2. CHRONIC RESPIRATORY FAILURE 3. PNEUMONIA, RLL 4. ACUTE BRONCHITIS 5. HYPONATREMIA 6. PULMONARY FIBROSIS 7. COPD, OXYGEN DEPENDENT 8. GENERALIZED ANXIETY DISORDER 9. HISTORY OF DVT AND PE (ON COUMADIN) 10.POLYARTHRITIS 11.GERD 12.ANXIETY 13.PLEURITIC PAIN LEFT LUNG 14.OSTEOPENIA (PROLIA) 15.CATARACT SURGERY, LEFT 06/2018 16.HYSTERECTOMY, 17.PFT: SEVERE COPD (05/2018) 18.ECHOCARDIOGRAM: ENLARGED RIGHT VENTRICLE, MILD AORTIC STENOSIS AND LVEF 76% (03/2019) DISCHARGE INSTRUCTIONS: Discharge to swing bed. MEDICATIONS AT DISCHARGE: Advair Diskus 250-50 one inhalation BID Combivent Respimat Inhaler 20-100 4 gram inhalation QID Tramadol 50mg PO BID PRN Albuterol Sulfate 2.5mg inhalation TID Ipratropium 2 spray Intranasal BID Hyzaar 50-12.5mg PO daily Potassium Chloride 20meq PO QID Carafate 10ml PO ACHS Coreg 6.25mg PO BID Lexapro 10mg PO DAILY Protonix 40mg PO BID Warfarin 4mg PO QPM Xanax 0.25mg PO TID Prednisone 10mg PO DAILY NEW PRESCRIPTIONS: Coreg 3.125mg PO BID WM Zosyn 3.375gram 0.9% sodium Chloride 50ml IV Q 6 hours DIET INSTRUCTIONS: As tolerated. ACTIVITY: As tolerated. SMOKING: Former smoker, Quit 2014 DISEASE SPECIFIC EDUCATION: Swing bed admission Continued IV antibiotics PT/OT HOSPITAL COURSE: 78 year old white female hospitalized because of worsening of COPD with bronchitis. The patient had right lower lobe pneumonia. She initially felt better after her discharge from the hospital a few days ago but again got into the same shape. During the stay in the hospital the patient was put on antibiotics but was changed to Zosyn because the sputum grew pseudomonas. The patient's condition improved remarkably on the second day. She has been steadily improving. The patient is going to need a few more days of Zosyn. Her COPD is very advanced. Also explained about pulmonary rehab, she is going to consider about it. Condition at the time of discharge to the swing bed is stable. TIME SPENT: More than 60 minutes. MTDD
--- NOTE | 2019-07-05 14:25 | PN ---
DATE OF SERVICE: 06/28/2019 SUBJECTIVE: The patient was seen and examined with Nurse Practitioner. The patient's condition seems to have improved. She needs to have more IV antibiotic Zosyn for pseudomonas pneumonia. The patient had Influenza. The patient is going to be discharged from the regular admission and put her on the swing bed today. The patient was seen and examined with the Nurse Practitioner. TIME SPENT: More than 30 minutes. Plan and coordination of the patient's care discussed in the presence of nurse. ANETA
--- NOTE | 2019-07-06 13:44 | PN ---
DATE OF SERVICE: 06/26/2019 SUBJECTIVE: 78 year old white female hospitalized with coagulopathy and chronic respiratory failure. The patient was extremely congested, shortness of breath. INR was more than 10. Her condition seems to have improved. She is feeling a lot better. The is sitting in the room. REVIEW OF SYSTEMS: CONSTITUTIONAL: No night sweats. No fatigue, malaise, lethargy. No fever or chills. HEENT: Eyes: No visual changes. No eye pain. No eye discharge. ENT: No runny nose. No epistaxis. No sinus pain. No sore throat. No odynophagia. No congestion. RESPIRATORY: No cough, no congestion. No hemoptysis. Shortness of breath on exertion. CARDIOVASCULAR: No angina symptoms. No CHF symptoms. No atypical chest pain for CAD. No palpitations. No PND. No orthopnea. GASTROINTESTINAL: No abdominal pain. No nausea or vomiting. No diarrhea or constipation. No hematemesis. No hematochezia.Appetite has improved. GENITOURINARY: No urgency. No frequency. No dysuria. No hematuria. No obstructive symptoms. No discharge. No pain. No significant abnormal bleeding. MUSCULOSKELETAL: No musculoskeletal pain; no joint swelling. NEUROLOGICAL: No headache. No neck pain. No syncope. No seizures. No dizziness. PSYCHIATRIC: Not anxious. No depression. No suicidal thoughts. No homicidal thoughts. SKIN: No rash. No lesions. No wounds. ENDOCRINE: No unexplained weight loss. No weight gain. HEMATOLOGIC/LYMPHATIC: No anemia. No purpura. No petechiae. No prolonged or excessive bleeding. No palpable lymph nodes. PHYSICAL EXAMINATION: VITAL SIGNS: Temperature 98.6, pulse 73, respiratory rate 20, blood pressure 112/63 and pulse ox 96%. HEENT: Head normocephalic, atraumatic. Eyes: Extraocular muscles are intact. Pupils are equal, round and reactive to light and accommodation. Ears: No lesions. Nose appeared normal. Throat: No exudate or erythema. NECK: Supple. No JVD, no carotid bruit. No lymphadenopathy or thyromegaly. LUNGS: Decreased breath sounds with mild wheeze. Percussion note normal. Chest symmetrical. HEART: S1, S2, no S3. No murmurs. No cyanosis or clubbing. No ascites. Pulses: Dorsalis pedis and posterior tibial pulses +1 to +2 bilaterally. ABDOMEN: Soft. Nontender. Bowel sounds active. No CVA tenderness. No mass felt. EXTREMITIES: No edema. Full range of motion of all extremities, equal. NEUROLOGIC: No focal deficit. Cranial nerves II through XII are grossly intact. No headache, no double vision or headache. SKIN: Not dry. Intact. Turgor - normal. LYMPHATIC: No palpable lymph nodes/no lymphedema. MUSCULOSKELETAL: Normal joints with no swelling. Muscle tone is normal. LABS: hgb 9.5, hct 29, WBC 13,000 normal differential, creatinine 1, BUN 21, potassium 3.8. INR is 5.1. ASSESSMENT: 1. Severe chronic lung disease with acute bronchitis seems to be resolving. Congestion is much less 2. Coagulopathy seems to be under control PLAN: 1. We will continue to hold Coumadin 2. Continue the same treatment, no change. 3. No evidence of any active GI bleed. Hgb and Hct is stable. 4. Continue steroids and NEBS 5. The patient is on Rocephin and we will continue that 6. Continue Lexapro. Wants Xanax to be given. CONDITION: Stable. TIME SPENT: More than 30 minutes. Plan and coordination of the patient's care discussed in the presence of nurse. ANETA
--- NOTE | 2019-07-06 13:47 | PN ---
DATE OF SERVICE: 06/25/19 SUBJECTIVE: Melissa Shipley was seen and examined with the nurse practitioner. The patient's condition has improved. She is feeling a lot better. She is not congested. Creatinine is 1.6, BUN 28, potassium 4.1. WBC count 12,000 which is borderline. Plan is to hold Coumadin. The patient had coagulopathy with high INR on admission. Today is 4.6 which is acceptable. Will decrease Coreg to 3.125. Continue incentive spirometry. The patient was seen and examined with the nurse practitioner. TIME SPENT: More than 30 minutes. Plan and coordination of the patient's care discussed in the presence of nurse. ANETA
== END 2019-06-28 10:50 | disposition swing bed (61) | DRG 202 ==
LOC: MEDSURG B 11:11
PROVIDERS: ADMIT Internal Medicine; ATTEND Internal Medicine

== ENCOUNTER 2019-07-19 08:37 | Inpatient (IN) ==
[2019-07-19] MEDS ORDERED: SODIUM CHLORIDE 1,000 ML IV STA (09:02)
[2019-07-19] MEDS ORDERED: ROCEPHIN 1 GM/50 ML D5W 1 GM/50 ML BAG IV STA (09:02)
--- NOTE | 2019-07-19 09:09 | ED.PDOC ---
General ED Provider: Dr. JERRY HOWARD MD Chief Complaint: Respiratory Complaint Stated Complaint: mild to mod off and on cough and short of breath for one week, on home oxygen, hx started w/ influenza and then bilateral pneumonia, no recent fever, no NV, hx dnr, hx tolerating Levaquin Time Seen by Physician: 09:07 Mode of Arrival: Walk-In Information Source: Patient and Family Primary Care Provider: RAISA RASCON Nursing and Triage Documentation Reviewed and Agree: Yes Does patient meet sepsis criteria?: No System Inflammatory Response Syndrome: Not Applicable Sepsis Protocol: For patient's 13 years and over: Temp is 96.8 and below OR 101 and greater Pulse >90 BPM Resp >20/minute Acutely Altered Mental Status Are patient's symptoms suggestive of a new infection, such as: -Pneumonia -Skin, Soft Tissue -Endocarditis -UTI -Bone, Joint Infection -Implantable Device -Acute Abdominal Infection -Wound Infection -Meningitis -Blood Stream Catheter Infection -Unknown Respiratory Complaint Exam Respiratory Complaint/Exam Onset/Duration: one week Symptoms Are: Still present Timing: Intermittent Initial Severity: Moderate Current Severity: Moderate Character: Reports Productive cough Associated Signs and Symptoms: Reports Fever; Denies Calf pain Review of Systems Review Of Systems Constitutional: Reports Malaise Eyes: Denies Vision change Ears, Nose, Mouth, Throat: Denies Throat pain Respiratory: Reports Cough and Short of air Cardiac: Denies Chest pain GI: Reports No symptoms Musculoskeletal: Denies Back pain Skin: Denies Rash and Cyanosis Neurological: Denies Cognitive dysfunction All Other Systems: Other [facility] Medical History Arrhythmia (Acute) Asthma (Acute) Bronchitis (Acute) COPD (chronic obstructive pulmonary disease) (Acute) History of hysterectomy (Acute) Hypertension (Acute) Pneumonia (Acute) Pulmonary emboli (Acute) Family History BROTHER No problems noted. Mother COPD (chronic obstructive pulmonary disease) Other Cancer Social History Smoking and tobacco status: Former smoker History of recent travel: No Female Reproductive History Menstrual Hx Hysterectomy: Yes Hx Tubal Ligation: No Physical Exam Physical Exam Appearance: Reports Well-appearing Ill-appearing: None Pain Distress: None Eyes: Reports EOMI and Conjunctiva clear ENT: Reports Oropharynx normal Neck: Supple Respiratory: Reports Airway patent and Breath sounds diminished; Denies Wheezes Cardiovascular: Reports RRR GI/: Reports Soft and Nontender Musculoskeletal: Reports No edema Skin: Denies Cyanotic Neurological: Reports Sensation intact Psychiatric: Reports Affect appropriate Interpretation Radiology Interpretation Radiology Interpretation By: Radiologist Exam Interpreted: CXR Xray Comments: new right pneumonia EKG Interpretation Time of EKG #1: 10:06 Rate: Normal Rhythm: Sinus Interpretation: lvh, no stemi Re-Evaluation Re-Evaluation Time of Re-Evaluation: 10:06 Status: Improved Vital Signs Stable: Yes Appearance: NAD Skin: Warm and Dry Neuro: Alert and Oriented X3 CV: RRR Additional Comments: admit d/w Dr Rascon, previous culture result indicates sensitivity to Leaquin Critical Care Note Critical Care Note Total Time (mins): 0 Course Course Hematology/Chemistry: 07/19/19 09:25 07/19/19 09:25 Orders, Labs, Meds: Lab Review 07/19/19 07/19/19 07/19/19 09:25 09:25 09:25 WBC 17.73 H RBC 3.06 L Hgb 8.6 L Hct 26.5 L MCV 86.6 MCH 28.1 MCHC 32.5 RDW Coeff of Elie 15.2 H Plt Count 339 Immature Gran % (Auto) 0.6 Neut % (Auto) 84.2 H Lymph % (Auto) 6.3 L [place] % (Auto) 7.5 Eos % (Auto) 1.1 Baso % (Auto) 0.3 Immature Gran # (Auto) 0.1 Neut # (Auto) 14.9 H Lymph # (Auto) 1.1 [place] # (Auto) 1.3 Eos # (Auto) 0.2 Baso # (Auto) 0.1 PT INR Puncture Site R brach O2 Saturation 96.0 ABG pH 7.463 H ABG pCO2 32.7 L ABG pO2 76.0 L ABG HCO3 23.4 ABG Total CO2 24 ABG Base Excess 0 [place] Test + O2 Delivery Device Nc Oxygen Liter Flow 2.00 Sodium 130.5 L Potassium 4.44 Chloride 96.6 L Carbon Dioxide 25.6 Anion Gap 12.74 BUN 23.4 H Creatinine 1.33 H Estimated GFR (MDRD) 39.00 BUN/Creatinine Ratio 17.59 Glucose 140.0 H Lactic Acid Calcium 10.09 Total Bilirubin 0.23 AST 29.1 ALT 14.6 Alkaline Phosphatase 165.5 H Total Creatine Kinase Troponin I < 0.012 Total Protein 6.30 Albumin 3.05 L Globulin 3.25 Albumin/Globulin Ratio 0.93 07/19/19 07/19/19 07/19/19 09:25 09:25 09:25 WBC RBC Hgb Hct MCV MCH MCHC RDW Coeff of Elie Plt Count Immature Gran % (Auto) Neut % (Auto) Lymph % (Auto) [place] % (Auto) Eos % (Auto) Baso % (Auto) Immature Gran # (Auto) Neut # (Auto) Lymph # (Auto) [place] # (Auto) Eos # (Auto) Baso # (Auto) PT 144.3 H INR 17.30 H* Puncture Site O2 Saturation ABG pH ABG pCO2 ABG pO2 ABG HCO3 ABG Total CO2 ABG Base Excess [place] Test O2 Delivery Device Oxygen Liter Flow Sodium Potassium Chloride Carbon Dioxide Anion Gap BUN Creatinine Estimated GFR (MDRD) BUN/Creatinine Ratio Glucose Lactic Acid 1.35 Calcium Total Bilirubin AST ALT Alkaline Phosphatase Total Creatine Kinase 20.5 L Troponin I Total Protein Albumin Globulin Albumin/Globulin Ratio Orders Category Date Time Status ADMIT PATIENT INPATIENT .TO [facility] (MONITORED BED) ADMISSION 07/19/19 10:19 Active ABG DRAW REQUEST Stat CARDIO 07/19/19 09:03 Completed EKG-(ED ONLY) Stat CARDIO 07/19/19 09:02 Completed EKG-(IP & OP ONLY) DAILY CARDIO 07/20/19 06:00 Ordered EKG-(IP & OP ONLY) DAILY CARDIO 07/21/19 06:00 Ordered OXYGEN Routine CARDIO 07/19/19 10:13 Active ACTIVITY .BR with BRP CARE 07/19/19 10:13 Active INSERT SALINE LOCK ONCE CARE 07/19/19 10:13 Active INTAKE & OUTPUT Q8HR CARE 07/19/19 10:15 Completed TELEMETRY MONITORING TELE CARE 07/19/19 10:13 Active TELEMETRY MONITORING TELE CARE 07/19/19 10:20 Completed VITAL SIGNS Q8HR CARE 07/19/19 10:13 Active VITAL SIGNS Q8HR CARE 07/19/19 10:15 Completed ED APPLY O2 .ONCE EMERGENCY 07/19/19 09:02 Active ABG Stat LAB 07/19/19 09:25 Completed BLOOD CULTURE Stat LAB 07/19/19 09:57 Received CBC W/ AUTO DIFF Stat LAB 07/19/19 09:25 Completed COMPREHENSIVE METABOLIC PANEL Stat LAB 07/19/19 09:25 Completed CREATINE KINASE Q8H LAB 07/19/19 09:25 Completed CREATINE KINASE Q8H LAB 07/19/19 18:15 Ordered LACTIC ACID Stat LAB 07/19/19 09:25 Completed TROPONIN I Q8H LAB 07/19/19 18:15 Ordered TROPONIN I Stat LAB 07/19/19 09:25 Completed URINALYSIS C & S IF INDICATED Stat LAB 07/19/19 12:58 Completed 0.9 % Sodium Chloride [Saline Flush] MEDS 07/19/19 13:00 Active 1 syr IVF Q8HR Acetaminophen [Tylenol] MEDS 07/19/19 10:13 Active 650 mg PO Q4H PRN Aspirin [Aspirin EC] MEDS 07/20/19 08:00 Active 81 mg PO DAILYWM Atropine Sulfate Inj [Atropine Sulfate Pfs] MEDS 07/19/19 10:13 Active 0.5 mg IVP ONCE PRN Azithromycin Inj [Zithromax] 500 mg MEDS 07/19/19 09:49 Discontinued 0.9 % Sodium Chloride [Sodium Chloride] 250 ml IV ONCE Ceftriaxone/D5w 1 gm Premix [Rocephin 1 gm/50 ml D5w] MEDS 07/20/19 09:00 Discontinued 1 gm in 50 ml IV DAILY Ceftriaxone/D5w 1 gm Premix [Rocephin 1 gm/50 ml D5w] MEDS 07/19/19 09:02 Discontinued 1 gm in 50 ml IV ONCE Hydroxyzine HCl [Vistaril Inj] MEDS 07/19/19 10:13 Active 25 mg IM Q4H PRN Levofloxacin/D5w [Levaquin 750 mg/150 ml D5w] MEDS 07/20/19 09:00 Discontinued 750 mg in 150 ml IV Q48HR Nitroglycerin [Nitrostat] MEDS 07/19/19 10:13 Active 0.4 mg SL Q5MIN X 3 DOSES PRN Sodium Chloride 0.9% [Sodium Chloride] 1,000 ml MEDS 07/19/19 09:02 Discontinued IV BOLUS RESUSCITATION STATUS Routine OTHERS 07/19/19 10:13 Ordered CHEST, 1V AP ONLY Stat RADS 07/19/19 09:02 Completed Medications Generic Name Dose Route Start Last Admin Trade Name Elisa PRN Reason Stop Dose Admin Acetaminophen 650 mg 07/19/19 10:13 Tylenol PO Q4H PRN Headache Albuterol/Ipratropium 4 spray 07/19/19 17:00 07/19/19 17:23 Combivent Respimat Inhaler IH 4 spray QID OLVIN Administration Aspirin 81 mg 07/20/19 08:00 Aspirin Ec PO DAILYWM OLVIN Atropine Sulfate 0.5 mg 07/19/19 10:13 Atropine Sulfate Pfs IVP ONCE PRN Symptomatic Bradycardia Carvedilol 3.125 mg 07/19/19 17:30 07/19/19 17:04 Coreg PO 3.125 mg BIDWM OLVIN Administration Hydroxyzine HCl 25 mg 07/19/19 10:13 Vistaril Inj IM Q4H PRN Nausea/Vomiting/Restlessness Dextrose/Sodium Chloride 1,000 mls @ 42 mls/hr 07/19/19 12:30 07/19/19 12:34 Dextrose 5%-1/2ns Iv Solution IV 42 mls/hr .[id number] OLVIN Administration Piperacillin Sod/Tazobactam 50 mls @ 50 mls/hr 07/19/19 18:00 07/19/19 17:03 Sod 3.375 gm/ Sodium Chloride IV 07/22/19 17:59 50 mls/hr Q6HR OLVIN Administration Nitroglycerin 0.4 mg 07/19/19 10:13 Nitrostat SL Q5MIN X 3 DOSES PRN Chest Pain Pantoprazole Sodium 40 mg 07/19/19 17:00 07/19/19 17:04 Protonix PO 40 mg BIDAC OLVIN Administration Potassium Chloride 20 meq 07/19/19 17:30 07/19/19 17:04 K-Dur PO 20 meq BIDWM OLVIN Administration Prednisone 20 mg 07/19/19 12:30 07/19/19 12:36 Prednisone PO 20 mg DAILYWM OLVIN Administration Sodium Chloride 1 syr 07/19/19 13:00 07/19/19 12:42 Saline Flush IVF 1 syr Q8HR OLVIN Administration Discontinued Medications Generic Name Dose Route Start Last Admin Trade Name Elisa PRN Reason Stop Dose Admin Sodium Chloride 1,000 mls @ 1,000 mls/hr 07/19/19 09:02 07/19/19 09:40 Sodium Chloride IV 07/19/19 10:01 1,000 mls/hr BOLUS STA Administration CEFTRIAXONE/D5W 1 GM PREMIX 1 gm in 50 mls @ 75 mls/hr 07/19/19 09:02 07/19/19 10:00 Rocephin 1 Gm/50 Ml D5w IV 07/19/19 09:41 75 mls/hr ONCE STA Administration Azithromycin 500 mg/ Sodium 250 mls @ 125 mls/hr 07/19/19 09:49 07/19/19 12:35 Chloride IV 07/19/19 11:48 125 mls/hr ONCE STA Administration CEFTRIAXONE/D5W 1 GM PREMIX 1 gm in 50 mls @ 75 mls/hr 07/20/19 09:00 Rocephin 1 Gm/50 Ml D5w IV 07/23/19 08:59 DAILY OLVIN Levofloxacin/Dextrose 750 mg in 150 mls @ 100 mls/hr 07/20/19 09:00 Levaquin 750 Mg/150 Ml D5w IV 07/23/19 08:59 Q48HR OLVIN Phytonadione 1 mg 07/19/19 16:16 07/19/19 17:03 Mephyton PO 07/19/19 16:17 1 mg ONCE ONE Administration Vital Signs: Temp Pulse Resp BP Pulse Ox 07/19/19 08:40 98.2 F 92 H 22 78/47 L 96 Discharge Plan Discharge Patient Disposition: ADMITTED INPATIENT Discharge Problem: Pneumonia Qualifiers: Pneumonia type: due to unspecified organism Laterality: right Lung location: unspecified part of lung Qualified Code(s): J18.9 - Pneumonia, unspecified organism ED Provider: JERRY HOWARD Condition: Stable Discharge Date/Time: 07/19/19 11:24
[2019-07-19 09:30] LABS: HEMATOCRIT 26.5 % (37.0-47.0)
--- NOTE | 2019-07-19 09:44 | DI ---
EXAM: Chest one view, frontal view only. HISTORY: Cough. COMPARISON: 07/05/2019. FINDINGS: Heart size is normal. Atherosclerotic calcifications present. There is new consolidation in the right upper lung. Question increasing right basilar consolidation as well. Left lung is perlita ar. Calcified granulomatous changes noted. No large pleural effusion or pneumothorax is seen. Osse ous structures are intact. IMPRESSION: New right lung pneumonia.
[2019-07-19] MEDS ORDERED: ZITHROMAX 500 MG in SODIUM CHLORIDE 250 ML IV STA (09:49)
[2019-07-19] MEDS ORDERED: ATROPINE SULFATE PFS IVP PRN (10:13)
[2019-07-19] MEDS ORDERED: VISTARIL INJ IM PRN (10:13)
[2019-07-19] MEDS ORDERED: NITROSTAT SL PRN (10:13)
[2019-07-19] MEDS ORDERED: TYLENOL PO PRN (10:13)
[2019-07-19 12:21] VITALS: BMI 17.0
[2019-07-19] MEDS: DEXTROSE 5%-1/2NS IV SOLUTION 1,000 ML IV SCH (12:34)
[2019-07-19] MEDS: PREDNISONE PO SCH (12:36)
[2019-07-19] MEDS ORDERED: MEPHYTON PO ONE (16:16)
[2019-07-19] MEDS: ZOSYN 3.375 GM 3.375 GM in SODIUM CHLORIDE 50 ML IV SCH ×2 (17:03→23:45)
[2019-07-19] MEDS: K-DUR PO SCH (17:04)
[2019-07-19] MEDS: COREG PO SCH (17:04)
[2019-07-19] MEDS: PROTONIX PO SCH (17:04)
[2019-07-19] MEDS: COMBIVENT RESPIMAT INHALER IH SCH ×2 (17:23→20:45)
[2019-07-19] MEDS ORDERED: POTASSIUM CHLORIDE 20 MEQ PO SCH (21:00)
[2019-07-20 05:11] LABS: HEMATOCRIT 24.1 % (37.0-47.0)
[2019-07-20] MEDS: ZOSYN 3.375 GM 3.375 GM in SODIUM CHLORIDE 50 ML IV SCH (05:56)
[2019-07-20] MEDS: PROTONIX PO SCH ×2 (05:57→17:21)
[2019-07-20] MEDS ORDERED: MEPHYTON PO STA (07:59)
[2019-07-20] MEDS: PREDNISONE PO SCH (08:43)
[2019-07-20] MEDS: K-DUR PO SCH ×2 (08:44→17:21)
[2019-07-20] MEDS: XANAX PO SCH ×3 (08:44→20:13)
[2019-07-20] MEDS: LEXAPRO PO SCH (08:45)
[2019-07-20] MEDS: ASPIRIN EC PO SCH (08:46)
[2019-07-20] MEDS: COREG PO SCH ×2 (08:46→17:21)
[2019-07-20] MEDS: CARAFATE PO SCH ×4 (08:46→20:04)
[2019-07-20] MEDS ORDERED: ROCEPHIN 1 GM/50 ML D5W 1 GM/50 ML BAG IV SCH (09:00)
[2019-07-20] MEDS ORDERED: LEVAQUIN 750 MG/150 ML D5W 750 MG/150 ML BAG IV SCH (09:00)
[2019-07-20] MEDS: COMBIVENT RESPIMAT INHALER IH SCH ×4 (09:07→20:05)
[2019-07-20] MEDS: FERROUS SULFATE PO SCH (10:43)
[2019-07-20] MEDS: ZOSYN 4.5 GM 4.5 GM in SODIUM CHLORIDE 100 ML IV SCH ×2 (11:31→19:53)
--- NOTE | 2019-07-20 12:56 | HP ---
DATE OF SERVICE: 07/19/19 HISTORY OF PRESENT ILLNESS: 79-year-old white female who was admitted 07/19/19. She presented to the ER with complaints of shortness of breath, cough, poor appetite and reports that she had a fever the day prior at home. Her symptoms had been ongoing for approximately one week. She is 02 dependent. She has had a recent history requiring hospitalization of influenza and then of pneumonia that was Pseudomonas in nature. She was discharged on 07/06/19. She was sent home with p.o. Levaquin. In ER she was afebrile. She had laboratory workup as well as imaging done. She is going to be admitted for further evaluation and treatment. PAST MEDICAL HISTORY: Pulmonary fibrosis Polyarthritis GERD Anxiety History of DVT PE COPD Stage 3 to [address] Peterson 02 dependent Chronic bronchitis Pleuritic pain Status post left cataract surgery in June of 2018 Cervical radiculopathy Osteopenia which she receives Prolia Lung nodule which has resolved that Dr. Peterson follows PAST SURGICAL HISTORY: Hysterectomy Status post left cataract surgery in June 2018 REVIEW OF SYSTEMS: CONSTITUTIONAL: Weakness. No night sweats. No fatigue, malaise, lethargy. No fever or chills. HEENT: Eyes: No visual changes. No eye pain. No eye discharge. ENT: No runny nose. No epistaxis. No sinus pain. No sore throat. No odynophagia. No ear pain. No congestion. RESPIRATORY: Cough. Mild shortness of breath. No hemoptysis. CARDIOVASCULAR: No angina symptoms. No CHF symptoms. No atypical chest pain for CAD. No palpitations. No PND. No orthopnea. GASTROINTESTINAL: Decreased appetite. Right-sided rib pain. No nausea or vomiting. No diarrhea or constipation. No hematemesis. No hematochezia. GENITOURINARY: No urgency. No frequency. No dysuria. No hematuria. No obstructive symptoms. No discharge. No pain. No significant abnormal bleeding. MUSCULOSKELETAL: No musculoskeletal pain. No joint swelling. No arthritis. NEUROLOGICAL: No headache. No neck pain. No syncope. No seizures. No dizziness. PSYCHIATRIC: Not anxious. No depression. No suicidal thoughts. No homicidal thoughts. SKIN: No rash. No lesions. No wounds. ENDOCRINE: No unexplained weight loss. No weight gain. HEMATOLOGIC/LYMPHATIC: No anemia. No purpura. No petechiae. No prolonged or excessive bleeding. No palpable lymph nodes. PERSONAL/FAMILY/SOCIAL HISTORY: She is . She lives with her . Her daughter is very supportive and assists her regularly. She quit smoking in 2014. She denies any drug or alcohol use. MEDICATIONS: (Home) Fluticasone one inhalation b.i.d. Ipratropium-Albuterol 4 gm INH q.i.d. Losartan-Hydrochlorothiazide (Hyzaar) one tab p.o. daily Sucralfate 10 mL p.o. a.c. h.s. Escitalopram 10 mg p.o. daily Pantoprazole 40 mg p.o. b.i.d. a.c. Warfarin 4 mg p.o. q. p.m. Alprazolam 0.25 mg p.o. t.i.d. Prednisone 10 mg p.o. daily Carvedilol 3.125 mg p.o. b.i.d. Levofloxacin 250 mg p.o. daily Potassium Chloride (Klor-Con) 20 mEq p.o. b.i.d. ALLERGIES: CIPROFLOXACIN, HYDROCODONE, (GI COCKTAIL) PHYSICAL EXAMINATION: VITAL SIGNS: Temperature 98.2, pulse 92, respirations 22, BP 78/47, pulse ox 96%. HEENT: Head normocephalic, atraumatic. Eyes: Extraocular muscles are intact. Pupils are equal, round and reactive to light and accommodation. Ears: No lesions. Nose appeared normal. Throat: No exudate or erythema. The patient is pale and is ill-appearing. NECK: Supple. No JVD, no carotid bruit. No lymphadenopathy or thyromegaly. LUNGS: Diminished breath sounds with mild expiratory wheezing. Clear to auscultation. Percussion note normal. Chest symmetrical. HEART: S1, S2, no S3. No murmur. No cyanosis or clubbing. No ascites. Pulses: Dorsalis pedis and posterior tibial pulses +1 to +2 bilaterally. ABDOMEN: Soft. Nontender. Bowel sounds active. No CVA tenderness. No mass felt. EXTREMITIES: No edema. Full range of motion of all extremities, equal. NEUROLOGIC: No focal deficit. Cranial nerves II through XII are grossly intact. No headache, no double vision or headache. SKIN: Not dry. Intact. Turgor - normal. LYMPHATIC: No palpable lymph nodes/no lymphedema. MUSCULOSKELETAL: Normal joints with no swelling. Muscle tone is normal. LABS: White blood count is 17.73, hemoglobin 8.6, hematocrit 26.5, platelets 339. ABGs 02 saturation 96, pH 7.463, pc02 32.7, p02 76, bicarb 23.4. Those were performed on 2L. Her sodium is 130.5, potassium 4.44, BUN 23.4, creatinine 1.33. AST 29.1, ALT 14.6, PT 144.3, INR 17.30. Chest x-ray shows new right lung pneumonia. ASSESSMENT: 1. RIGHT LUNG PNEUMONIA 2. HISTORY OF PNEUMONIA WITH PSEUDOMONAS 3. CHRONIC LUNG DISEASE, OXYGEN DEPENDENT 4. CHRONIC RESPIRATORY FAILURE 5. CACHEXIA 6. FAILURE TO THRIVE 7. ANEMIA 8. COAGULOPATHY WITH NO ACTIVE BLEEDING NOTED 9. WEAKNESS 10. HYPONATREMIA 11. HYPERTENSION 12. DEPRESSION PLAN: 1. Admit to Special Care. 2. Telemetry. 3. Oximetry. 4. Daily CBC, CMP, INR and ABGs. 5. Continue home medications. 6. Antibiotics to be dosed by pharmacy recommendations. 7. Metered dose inhaler scheduled. 8. Regular diet. 9. Counseling on good nutrition. 10. Incentive spirometer. 11. Hold Coumadin. 12. Vitamin K 1 mg. 13. CODE STATUS DNR. The patient was seen and examined with Dr. Yo. Plan was discussed. TIME SPENT: More than 70 minutes. ADDENDUM: (Dictated by Dr. Yo 07/19/19) The history and physical was done with nurse practitioner. Assessment and plan discussed. The main assessment is as follows: 1. Right lung infiltrate pneumonia. 2. History of Pseudomonas pneumonia in the near past. 3. Severe chronic lung disease. 4. Hypertension. 5. Depression. 6. Malnutrition. 7. Multiple other medical problems PLAN: 1. Give Zosyn IV fluids, slow. 2. Encourage the patient to eat. 3. Counseling for malnutrition done. 4. Advised again pulmonary rehab. 5. Continue steroids as described 20 mg p.o. q.a.m. along with inhalers. CONDITION: Stable. MTDD
--- NOTE | 2019-07-20 13:17 | PN ---
DATE OF SERVICE: 07/20/19 SUBJECTIVE: 79-year-old white female resting comfortably in bed. She is in the negative pressure room in the Special Care Unit under PUI precautions. Once asleep she has rested comfortably through the night. She continues to report poor intake and appetite. She also continues to complain of a cough that is intermittently productive and mild shortness of breath. She reports she feels extremely weak. We will continue IV antibiotics. REVIEW OF SYSTEMS: CONSTITUTIONAL: Weakness, fatigue. No night sweats. No malaise, lethargy. No fever or chills. HEENT: Eyes: No visual changes. No eye pain. No eye discharge. ENT: No runny nose. No epistaxis. No sinus pain. No sore throat. No odynophagia. No congestion. RESPIRATORY: Shortness of breath. Productive cough. No hemoptysis. CARDIOVASCULAR: No angina symptoms. No CHF symptoms. No atypical chest pain for CAD. No palpitations. No PND. No orthopnea. GASTROINTESTINAL: Poor appetite. Right-sided rib pain. No abdominal pain. No nausea or vomiting. No diarrhea or constipation. No hematemesis. No hematochezia. GENITOURINARY: No urgency. No frequency. No dysuria. No hematuria. No obstructive symptoms. No discharge. No pain. No significant abnormal bleeding. MUSCULOSKELETAL: No musculoskeletal pain; no joint swelling. NEUROLOGICAL: No headache. No neck pain. No syncope. No seizures. No dizziness. PSYCHIATRIC: Not anxious. No depression. No suicidal thoughts. No homicidal thoughts. SKIN: No rash. No lesions. No wounds. ENDOCRINE: No unexplained weight loss. No weight gain. HEMATOLOGIC/LYMPHATIC: Anemia. No purpura. No petechiae. No prolonged or excessive bleeding. No palpable lymph nodes. PHYSICAL EXAMINATION: GENERAL: Ill-appearing, failure to thrive. HEENT: Head normocephalic, atraumatic. Eyes: Extraocular muscles are intact. Pupils are equal, round and reactive to light and accommodation. Ears: No lesions. Nose appeared normal. Throat: No exudate or erythema. NECK: Supple. No JVD, no carotid bruit. No lymphadenopathy or thyromegaly. LUNGS: Diminished breath sounds with mild expiratory wheezing. Percussion note normal. Chest symmetrical. HEART: S1, S2, no S3. No murmurs. No cyanosis or clubbing. No ascites. Pulses: Dorsalis pedis and posterior tibial pulses +1 to +2 bilaterally. ABDOMEN: Soft. Nontender. Bowel sounds active. No CVA tenderness. No mass felt. EXTREMITIES: No edema. Full range of motion of all extremities, equal. NEUROLOGIC: No focal deficit. Cranial nerves II through XII are grossly intact. No headache, no double vision or headache. SKIN: Not dry. Intact. Turgor - normal. LYMPHATIC: No palpable lymph nodes/no lymphedema. MUSCULOSKELETAL: Normal joints with no swelling. Muscle tone is normal. ASSESSMENT: 1. Right lung pneumonia. 2. History of pneumonia with pseudomonas. 3. Chronic lung disease, oxygen dependent. 4. Chronic respiratory failure. 5. Cachexia. 6. Failure to thrive. 7. Anemia. 8. Coagulopathy with no active bleeding noted. 9. Weakness. 10. Hyponatremia. 11. Hypertension. 12. Depression. PLAN: 1. Continue Zosyn. 2. Continue metered dose inhaler. 3. Continue IV fluids at 42 mL/hr. 4. Vitamin K 2.5 mg now. 5. Insure that there is a CBC, CMP, and INR. 6. Ferrous Sulfate 325 mg daily. 7. Type and Cross for two units of packed red blood cells and give the two units. 8. Hold Hyzaar. 9. Encourage incentive spirometer use, cough and deep breathing. 10. Encourage good oral intake. 11. Counseling provided for recommendations on good nutrition. 12. BOOST supplements b.i.d. The patient was seen and examined with Dr. Yo. Plan was discussed. TIME SPENT: More than 30 minutes. Plan and coordination of the patient's care discussed in the presence of nurse. ANETA
--- NOTE | 2019-07-20 13:25 | PN ---
DATE OF SERVICE: 07/19/19 SUBJECTIVE: Melissa Shipley was seen and examined today. The patient was hospitalized and was directed to go to the emergency room as she was running a low grade fever the past couple of days with cough and congestion. The patient in the emergency room did not have any fever. The chest x-ray showed right pneumonia which was new infiltrate. The patient has been recently treated and discharged two days ago after being kept in the swing bed for Pseudomonas pneumonia, right lower lobe. PHYSICAL EXAMINATION: HEENT: Head normocephalic, atraumatic. Eyes: Extraocular muscles are intact. Pupils are equal, round and reactive to light and accommodation. Ears: No lesions. Nose appeared normal. Throat: No exudate or erythema. NECK: Supple. No JVD, no carotid bruit. No lymphadenopathy or thyromegaly. LUNGS: Clear to auscultation with decreased breath sounds. Percussion note normal. Chest symmetrical. HEART: S1, S2, no S3. No murmurs. No cyanosis or clubbing. No ascites. Pulses: Dorsalis pedis and posterior tibial pulses +1 to +2 bilaterally. ABDOMEN: Soft. Nontender. Bowel sounds active. No CVA tenderness. No mass felt. EXTREMITIES: No edema. Full range of motion of all extremities, equal. NEUROLOGIC: No focal deficit. Cranial nerves II through XII are grossly intact. No headache, no double vision or headache. SKIN: Not dry. Intact. Turgor - normal. LYMPHATIC: No palpable lymph nodes/no lymphedema. MUSCULOSKELETAL: Normal joints with no swelling. Muscle tone is normal. Arterial blood gases are acceptable with p02 of more than 60, pc02 35, normal pH. The patient's oxygen saturation on room air was more than 90%. ASSESSMENT: 1. Right lung infiltrate pneumonia, etiology likely Pseudomonas. 2. The patient has severe chronic lung disease. 3. Hypertension. PLAN: 1. IV antibiotics to include Pseudomonas organisms. 2. IV fluids. 3. Encourage the patient to eat. 4. Oxygen. 5. Nebs. 6. Steroids. 7. The patient is going to be checked for coronavirus. The precautions will be taken for that. CONDITION: Stable. TIME SPENT: More than 30 minutes. Plan and coordination of the patient's care discussed in the presence of nurse. ANETA
--- NOTE | 2019-07-20 13:29 | PN ---
DATE OF SERVICE: 07/20/19 SUBJECTIVE: The patient was seen and examined with the nurse practitioner. The patient's condition is stable. Oxygen saturation is more than 95% with 2L. She is feeling better. The pleuritic type of pain in the chest has subsided. She is still coughing up yellowish sputum. PHYSICAL EXAMINATION: HEENT: Head normocephalic, atraumatic. Eyes: Extraocular muscles are intact. Pupils are equal, round and reactive to light and accommodation. Ears: No lesions. Nose appeared normal. Throat: No exudate or erythema. NECK: Supple. No JVD, no carotid bruit. No lymphadenopathy or thyromegaly. LUNGS: Decreased breath sounds with mild wheeze. Percussion note normal. Chest symmetrical. HEART: S1, S2, no S3. No murmurs. No cyanosis or clubbing. No ascites. Pulses: Dorsalis pedis and posterior tibial pulses +1 to +2 bilaterally. ABDOMEN: Soft. Nontender. Bowel sounds active. No CVA tenderness. No mass felt. EXTREMITIES: No edema. Full range of motion of all extremities, equal. NEUROLOGIC: No focal deficit. Cranial nerves II through XII are grossly intact. No headache, no double vision or headache. SKIN: Not dry. Intact. Turgor - normal. LYMPHATIC: No palpable lymph nodes/no lymphedema. MUSCULOSKELETAL: Normal joints with no swelling. Muscle tone is normal. ASSESSMENT: 1. Right lung pneumonia seems to be responding to dosing, steroids. I don't think the patient has coronavirus. CONDITION: Stable. TIME SPENT: More than 30 minutes. Plan and coordination of the patient's care discussed in the presence of nurse. ANETA
[2019-07-20] MEDS: DEXTROSE 5%-1/2NS IV SOLUTION 1,000 ML IV SCH (16:45)
[2019-07-20 20:52] LABS: HEMATOCRIT 33.5 % (37.0-47.0)
[2019-07-21] MEDS: ZOSYN 4.5 GM 4.5 GM in SODIUM CHLORIDE 100 ML IV SCH ×5 (00:42→23:10)
[2019-07-21] MEDS: DEXTROSE 5%-1/2NS IV SOLUTION 1,000 ML IV SCH ×2 (00:44→16:46)
[2019-07-21 05:05] LABS: HEMATOCRIT 32.5 % (37.0-47.0)
[2019-07-21] MEDS: CARAFATE PO SCH ×4 (06:21→20:04)
[2019-07-21] MEDS: PROTONIX PO SCH ×2 (06:21→16:40)
[2019-07-21] MEDS: COMBIVENT RESPIMAT INHALER IH SCH ×4 (08:09→20:03)
[2019-07-21] MEDS: COREG PO SCH ×2 (08:10→16:41)
[2019-07-21] MEDS: XANAX PO SCH ×3 (08:10→20:04)
[2019-07-21] MEDS: ASPIRIN EC PO SCH (08:10)
[2019-07-21] MEDS: K-DUR PO SCH ×2 (08:10→16:40)
[2019-07-21] MEDS: FERROUS SULFATE PO SCH (08:10)
[2019-07-21] MEDS: LEXAPRO PO SCH (08:11)
[2019-07-21] MEDS: PREDNISONE PO SCH (08:11)
[2019-07-21] MEDS ORDERED: LASIX IVP STA (12:17)
[2019-07-21] MEDS ORDERED: VENTOLIN HFA (PER PUFF-WITH SPACER) IH PRN (12:19)
[2019-07-21] MEDS ORDERED: ADVAIR 250-50 DISKUS IH SCH ×2 (12:30→12:45)
[2019-07-21] MEDS: ADVAIR 250-50 DISKUS IH SCH ×2 (13:10→20:03)
[2019-07-22] MEDS: ZOSYN 4.5 GM 4.5 GM in SODIUM CHLORIDE 100 ML IV SCH ×4 (05:43→23:10)
[2019-07-22] MEDS: PROTONIX PO SCH ×2 (05:43→16:52)
[2019-07-22] MEDS: CARAFATE PO SCH ×4 (05:43→20:13)
[2019-07-22] MEDS: ADVAIR 250-50 DISKUS IH SCH ×2 (09:03→20:14)
[2019-07-22] MEDS: COMBIVENT RESPIMAT INHALER IH SCH ×4 (09:03→20:18)
[2019-07-22] MEDS: K-DUR PO SCH ×2 (09:09→16:52)
[2019-07-22] MEDS: XANAX PO SCH ×3 (09:09→20:13)
[2019-07-22] MEDS: LEXAPRO PO SCH (09:10)
[2019-07-22] MEDS: PREDNISONE PO SCH (09:10)
[2019-07-22] MEDS: COREG PO SCH ×2 (09:10→16:51)
[2019-07-22] MEDS: FERROUS SULFATE PO SCH (09:10)
[2019-07-22] MEDS: IMODIUM PO PRN ×2 (10:04→17:15)
--- NOTE | 2019-07-22 10:28 | PN ---
DATE OF SERVICE: 07/21/19 SUBJECTIVE: The patient was seen and examined today. The patient's condition seems to be stabilizing. She had more congestion given more frequent Albuterol inhaler at bedside. She can use it 5 to 6 times a day as needed. She is eating better. REVIEW OF SYSTEMS: CONSTITUTIONAL: No night sweats. No fatigue, malaise, lethargy. No fever or chills. HEENT: Eyes: No visual changes. No eye pain. No eye discharge. ENT: No runny nose. No epistaxis. No sinus pain. No sore throat. No odynophagia. No congestion. RESPIRATORY: Mild cough and congestion. Shortness of breath has increase some. No hemoptysis. CARDIOVASCULAR: No angina symptoms. No CHF symptoms. No atypical chest pain for CAD. No pleuritic pain. No palpitations. No PND. No orthopnea. GASTROINTESTINAL: No abdominal pain. No nausea or vomiting. No diarrhea or constipation. No hematemesis. No hematochezia. GENITOURINARY: No urgency. No frequency. No dysuria. No hematuria. No obstructive symptoms. No discharge. No pain. No significant abnormal bleeding. MUSCULOSKELETAL: No musculoskeletal pain; no joint swelling. NEUROLOGICAL: No headache. No neck pain. No syncope. No seizures. No dizziness. PSYCHIATRIC: Not anxious. No depression. No suicidal thoughts. No homicidal thoughts. SKIN: No rash. No lesions. No wounds. ENDOCRINE: No unexplained weight loss. No weight gain. HEMATOLOGIC/LYMPHATIC: No anemia. No purpura. No petechiae. No prolonged or excessive bleeding. No palpable lymph nodes. PHYSICAL EXAMINATION: GENERAL: The patient is afebrile. VITAL SIGNS: Pulse 70/min, blood pressure 115/70. Oxygen saturation 95% on 2L. HEENT: Head normocephalic, atraumatic. Eyes: Extraocular muscles are intact. Pupils are equal, round and reactive to light and accommodation. Ears: No lesions. Nose appeared normal. Throat: No exudate or erythema. NECK: Supple. No JVD, no carotid bruit. No lymphadenopathy or thyromegaly. LUNGS: Decreased breath sounds but clear to auscultation. The patient has dry crepitations at the bases. Percussion note normal. Chest symmetrical. HEART: S1, S2, no S3. No murmurs. No cyanosis or clubbing. No ascites. Pulses: Dorsalis pedis and posterior tibial pulses +1 to +2 bilaterally. ABDOMEN: Soft. Nontender. Bowel sounds active. No CVA tenderness. No mass felt. EXTREMITIES: No edema. Full range of motion of all extremities, equal. NEUROLOGIC: No focal deficit. Cranial nerves II through XII are grossly intact. No headache, no double vision or headache. SKIN: Not dry. Intact. Turgor - normal. LYMPHATIC: No palpable lymph nodes/no lymphedema. MUSCULOSKELETAL: Normal joints with no swelling. Muscle tone is normal. ASSESSMENT: 1. Acute bronchitis, right lower lobe pneumonia seems to be resolving. 2. Severe chronic lung disease. 3. The patient's Coronavirus test is negative. PLAN: 1. Continue Zosyn, steroids and inhaler at bedside. 2. Further plan was also to give IV Lasix 20 mg for possible congestion. 3. Discontinue IV fluids. 4. Cozaar to be started if systolic blood pressure is more than 150. Instructions given. CONDITION: Stable. PROGNOSIS: Guarded. TIME SPENT: More than 30 minutes. Plan and coordination of the patient's care discussed in the presence of nurse. ANETA
--- NOTE | 2019-07-22 11:43 | PN ---
DATE OF SERVICE: 07/22/19 SUBJECTIVE: The patient is alert and resting in bed. She continues to report cough but is intermittently productive, right-sided rib pain. She reports that she has slept decent. Her appetite has slowly increased. She has had episode of loose stools this mOrning. She continues to complain of weakness. REVIEW OF SYSTEMS: CONSTITUTIONAL: Positive for weakness and fatigue. No night sweats. No malaise, lethargy. No fever or chills. HEENT: Eyes: No visual changes. No eye pain. No eye discharge. ENT: No runny nose. No epistaxis. No sinus pain. No sore throat. No odynophagia. No congestion. RESPIRATORY: Productive cough. No hemoptysis. No shortness of breath. CARDIOVASCULAR: No angina symptoms. No CHF symptoms. No atypical chest pain for CAD. No palpitations. No PND. No orthopnea. GASTROINTESTINAL: Decreased appetite. Diarrhea. Right-sided rib pain. No nausea or vomiting. No constipation. No hematemesis. No hematochezia. GENITOURINARY: No urgency. No frequency. No dysuria. No hematuria. No obstructive symptoms. No discharge. No pain. No significant abnormal bleeding. MUSCULOSKELETAL: No musculoskeletal pain; no joint swelling. NEUROLOGICAL: No headache. No neck pain. No syncope. No seizures. No dizziness. PSYCHIATRIC: Not anxious. No depression. No suicidal thoughts. No homicidal thoughts. SKIN: No rash. No lesions. No wounds. ENDOCRINE: No unexplained weight loss. No weight gain. HEMATOLOGIC/LYMPHATIC: No anemia. No purpura. No petechiae. No prolonged or excessive bleeding. No palpable lymph nodes. PHYSICAL EXAMINATION: HEENT: Head normocephalic, atraumatic. Eyes: Extraocular muscles are intact. Pupils are equal, round and reactive to light and accommodation. Ears: No lesions. Nose appeared normal. Throat: No exudate or erythema. NECK: Supple. No JVD, no carotid bruit. No lymphadenopathy or thyromegaly. LUNGS: Decreased breath sounds with mild wheezing. Clear to auscultation. Percussion note normal. Chest symmetrical. HEART: S1, S2, no S3. No murmurs. No cyanosis or clubbing. No ascites. Pulses: Dorsalis pedis and posterior tibial pulses +1 to +2 bilaterally. ABDOMEN: Soft. Nontender. Bowel sounds active. No CVA tenderness. No mass felt. EXTREMITIES: No edema. Full range of motion of all extremities, equal. NEUROLOGIC: No focal deficit. Cranial nerves II through XII are grossly intact. No headache, no double vision or headache. SKIN: Not dry. Intact. Turgor - normal. LYMPHATIC: No palpable lymph nodes/no lymphedema. MUSCULOSKELETAL: Normal joints with no swelling. Muscle tone is normal. ASSESSMENT: 1. ACUTE BRONCHITIS 2. SEVERE CHRONIC LUNG DISEASE 3. OXYGEN DEPENDENT 4. CHRONIC RESPIRATORY FAILURE 5. HISTORY OF PNEMONIA WITH PSEUDOMONAS 6. CACHEXIA 7. FAILURE TO THRIVE 8. ANEMIA 9. 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 WEAKNESS 11. HYPONATREMIA 12. HYPERTENSION 13. DEPRESSION PLAN: 1. Continue Zosyn. 2. Continue inhalers. 3. CBC, CMP, INR and ABG in the morning. 4. Chest x-ray tomorrow morning. 5. Encourage incentive spirometer use. 6. Add humidifier to 02 nasal cannula. 7. Begin Imodium. 8. Continue to hold Coumadin and Hyzaar. 9. Counseling provided for nutrition and encouraged good oral intake. The patient was seen and evaluated in combination with Dr. Yo. TIME SPENT: More than 30 minutes. Plan and coordination of the patient's care discussed in the presence of nurse. ANETA
[2019-07-23 05:10] LABS: HEMATOCRIT 33.5 % (37.0-47.0)
[2019-07-23 06:03] VITALS: BP 153/80; TEMP 98.2
[2019-07-23] MEDS: ZOSYN 4.5 GM 4.5 GM in SODIUM CHLORIDE 100 ML IV SCH (06:05)
[2019-07-23] MEDS: CARAFATE PO SCH ×2 (06:05→11:00)
[2019-07-23] MEDS: PROTONIX PO SCH (06:05)
[2019-07-23] MEDS: LEXAPRO PO SCH (08:28)
[2019-07-23] MEDS: COMBIVENT RESPIMAT INHALER IH SCH (08:28)
[2019-07-23] MEDS: XANAX PO SCH (08:28)
[2019-07-23] MEDS: ADVAIR 250-50 DISKUS IH SCH (08:28)
[2019-07-23] MEDS: K-DUR PO SCH (08:29)
[2019-07-23] MEDS: FERROUS SULFATE PO SCH (08:29)
[2019-07-23] MEDS: COREG PO SCH (08:29)
[2019-07-23] MEDS: PREDNISONE PO SCH (08:34)
--- NOTE | 2019-07-23 08:44 | PN ---
DATE OF SERVICE: 07/23/19 SUBJECTIVE: 79-year-old female, alert, resting in bed. She reports some improvement in her weakness as she was able to get up in the room to the bathroom with assistance. She continues to report cough but is intermittent productive, pale yellow sputum. She continues to complain of right-sided rib pain. Her appetite is continuing to slowly increase as she woke up in the night and was wanting something to eat. She reports two episodes of loose stools yesterday which required Imodium but has had none this morning. Today we are going to repeat the chest x-ray. We will also restart her Hyzaar since her blood pressure was 153/80 this morning. We will also continue to hold Coumadin and Aspirin, INR this morning was 4.59. REVIEW OF SYSTEMS: CONSTITUTIONAL: Weakness, fatigue. No night sweats. No malaise, lethargy. No fever or chills. HEENT: Eyes: No visual changes. No eye pain. No eye discharge. ENT: No runny nose. No epistaxis. No sinus pain. No sore throat. No odynophagia. No congestion. RESPIRATORY: Productive cough with pale yellow sputum. No hemoptysis. No shortness of breath. CARDIOVASCULAR: No angina symptoms. No CHF symptoms. No atypical chest pain for CAD. No palpitations. No PND. No orthopnea. GASTROINTESTINAL: Decreased appetite. Diarrhea improving. No abdominal pain. No nausea or vomiting. No constipation. No hematemesis. No hematochezia. GENITOURINARY: No urgency. No frequency. No dysuria. No hematuria. No obstructive symptoms. No discharge. No pain. No significant abnormal bleeding. MUSCULOSKELETAL: No musculoskeletal pain; no joint swelling. NEUROLOGICAL: No headache. No neck pain. No syncope. No seizures. No dizziness. PSYCHIATRIC: Not anxious. No depression. No suicidal thoughts. No homicidal thoughts. SKIN: No rash. No lesions. No wounds. ENDOCRINE: No unexplained weight loss. No weight gain. HEMATOLOGIC/LYMPHATIC: No anemia. No purpura. No petechiae. No prolonged or excessive bleeding. No palpable lymph nodes. PHYSICAL EXAMINATION: HEENT: Head normocephalic, atraumatic. Eyes: Extraocular muscles are intact. Pupils are equal, round and reactive to light and accommodation. Ears: No lesions. Nose appeared normal. Throat: No exudate or erythema. NECK: Supple. No JVD, no carotid bruit. No lymphadenopathy or thyromegaly. LUNGS: Decreased breath sounds with mild wheezing. Percussion note normal. Chest symmetrical. HEART: S1, S2, no S3. No murmurs. No cyanosis or clubbing. No ascites. Pulses: Dorsalis pedis and posterior tibial pulses +1 to +2 bilaterally. ABDOMEN: Soft. Nontender. Bowel sounds active. No CVA tenderness. No mass felt. EXTREMITIES: No edema. Full range of motion of all extremities, equal. NEUROLOGIC: No focal deficit. Cranial nerves II through XII are grossly intact. No headache, no double vision or headache. SKIN: Not dry. Intact. Turgor - normal. LYMPHATIC: No palpable lymph nodes/no lymphedema. MUSCULOSKELETAL: Normal joints with no swelling. Muscle tone is normal. AB saturation 92.0, pH 7.451, pc02 44.8, p02 62.0, HC03 31.2, c02 33, base excess 7, FI02 28.0. Chest x-ray today - Worsening right-sided patchy ground glass consolidations most pronounced in the right upper lobe suggestive of worsening pneumonia. Findings are suggestive of underlying chronic obstructive pulmonary disease. ASSESSMENT: 1. RIGHT LUNG PNEUMONIA 2. ACUTE BRONCHITIS 3. SEVERE CHRONIC LUNG DISEASE, OXYGEN DEPENDENT 4. CHRONIC RESPIRATORY FAILURE 5. HISTORY OF RECENT PNEUMONIA WITH PSEUDOMONAS 6. CACHEXIA. 7. FAILURE TO THRIVE 8. ANEMIA 9. COAGULOPATHY WITH NO ACTIVE BLEEDING 10. WEAKNESS 11. HYPONATREMIA RESOLVED 12. HYPERTENSION 13. DEPRESSION PLAN: 1. Chest x-ray this morning. 2. Continue antibiotics. 3. Continue inhalers. 4. CBC, CMP, INR and ABG tomorrow morning. 5. Encourage incentive spirometry use. 6. Restart Hyzaar. 7. Continue to hold Coumadin and Aspirin. 8. Counseling provided for good nutrition and encourage oral intake. 9. Encourage the patient to be up and about in the room with assistance. The patient was seen and evaluated in combination with Dr. Yo. TIME SPENT: More than 30 minutes. Plan and coordination of the patient's care discussed in the presence of nurse. ANETA
[2019-07-23] MEDS ORDERED: HYZAAR 50-12.5 MG TAB PO SCH (09:00)
--- NOTE | 2019-07-23 09:25 | PN ---
DATE OF SERVICE: 07/22/2019 SUBJECTIVE: The patient is doing well. She was seen and examined with Nurse Practitioner. The patient's condition is improving. She was 20mg of Lasix yesterday and steroids. The patient's oxygen saturation on room air is 90%. REVIEW OF SYSTEMS: CONSTITUTIONAL: No night sweats. No fatigue, malaise, lethargy. No fever or chills. HEENT: Eyes: No visual changes. No eye pain. No eye discharge. ENT: No runny nose. No epistaxis. No sinus pain. No sore throat. No odynophagia. No congestion. RESPIRATORY: No cough, no congestion. No hemoptysis. No shortness of breath. CARDIOVASCULAR: No angina symptoms. No CHF symptoms. No atypical chest pain for CAD. No palpitations. No PND. No orthopnea. GASTROINTESTINAL: No abdominal pain. No nausea or vomiting. No diarrhea or constipation. No hematemesis. No hematochezia. Appetite seems to have improved. GENITOURINARY: No urgency. No frequency. No dysuria. No hematuria. No obstructive symptoms. No discharge. No pain. No significant abnormal bleeding. MUSCULOSKELETAL: No musculoskeletal pain; no joint swelling. NEUROLOGICAL: No headache. No neck pain. No syncope. No seizures. No dizziness. PSYCHIATRIC: Not anxious. No depression. No suicidal thoughts. No homicidal thoughts. SKIN: No rash. No lesions. No wounds. ENDOCRINE: No unexplained weight loss. No weight gain. HEMATOLOGIC/LYMPHATIC: No anemia. No purpura. No petechiae. No prolonged or excessive bleeding. No palpable lymph nodes. PHYSICAL EXAMINATION: GENERAL: The patient is still weak, tired and short of breath on minimal exertion. HEENT: Head normocephalic, atraumatic. Eyes: Extraocular muscles are intact. Pupils are equal, round and reactive to light and accommodation. Ears: No lesions. Nose appeared normal. Throat: No exudate or erythema. NECK: Supple. No JVD, no carotid bruit. No lymphadenopathy or thyromegaly. LUNGS: Decreased breath sounds with good air entry. Percussion note normal. Chest symmetrical. HEART: S1, S2, no S3. No murmurs. No cyanosis or clubbing. No ascites. Pulses: Dorsalis pedis and posterior tibial pulses +1 to +2 bilaterally. ABDOMEN: Soft. Nontender. Bowel sounds active. No CVA tenderness. No mass felt. EXTREMITIES: No edema. Full range of motion of all extremities, equal. NEUROLOGIC: No focal deficit. Cranial nerves II through XII are grossly intact. No headache, no double vision or headache. SKIN: Not dry. Intact. Turgor - normal. LYMPHATIC: No palpable lymph nodes/no lymphedema. MUSCULOSKELETAL: Normal joints with no swelling. Muscle tone is normal. ASSESSMENT: 1. Pneumonia seems to be improving with Zosyn TIME SPENT: More than 30 minutes. Plan and coordination of the patient's care discussed in the presence of nurse. ANETA
--- NOTE | 2019-07-23 09:43 | PN ---
DATE OF SERVICE: 07/23/2019 SUBJECTIVE: The patient is doing well. She is afebrile. The patient was seen and examined with Nurse Practitioner. CVS and RS status is stable. Chest x-ray report pending. Continue Zosyn. Advised to join pulmonary rehab. Pulmonary rehab discussed in detail. As mentioned earlier in earlier notes the patient is negative for Coronavirus. TIME SPENT: More than 30 minutes. Plan and coordination of the patient's care discussed in the presence of nurse. ANETA
--- NOTE | 2019-07-23 09:54 | DI ---
EXAM: PA and lateral views of the chest HISTORY: New right upper lobe consolidation COMPARISON: Chest x-ray 07/19/[address] chest 07/05/2019 with multiple priors FINDINGS: The cardiomediastinal silhouette is unchanged with atherosclerotic disease. There is no p neumothorax with blunting right costophrenic angle. There is patchy ground-glass opacities throughou t the right lung most pronounced in the right upper lobe which have minimally worsened since prior ex am. Lungs are hyperinflated with no discrete abnormality noted on the left. The osseous structures are unremarkable. IMPRESSION: 1. Worsening right-sided patchy ground-glass consolidations most pronounced in the right upper lobe suggestive of worsening pneumonia. 2. Findings are suggestive of underlying chronic obstructive pulmonary disease.
--- NOTE | 2019-07-23 11:07 | CM.DICTOOL ---
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) POLYARTHRITIS GERD OSTEOPENIA (PROLIA) HISTORY OF TOBACCO USE (STOPPED) CATARACT EXTRACTION, LEFT 2019 HYSTERECTOMY, PFT: SEVERE COPD (2018) ECHOCARDIOGRAM: (MARCH 2019) ENLARGED RIGHT VENTRICLE MILD AORTIC STENOSIS LVEF 76% LAST VITALS Temp Pulse Resp BP Pulse Ox 98.2 F 83 22 153/80 H 91 L 07/23/19 06:00 07/23/19 06:00 07/23/19 06:00 07/23/19 06:00 07/23/19 06:00 TAKE THESE MEDICATIONS AT HOME Acetaminophen (Tylenol) 650 mg PO Q4H PRN PRN Reason: Headache Albuterol Sulfate (Ventolin Hfa (Per Puff-With Spacer)) 2 puff IH Q6H PRN PRN Reason: Shortness if breath Albuterol/Ipratropium (Combivent Respimat Inhaler) 1 spray IH QID [facility] Last Admin: 07/23/19 08:28 Dose: 1 spray Documented by: Alprazolam (Xanax) 0.25 mg PO TID [facility] Last Admin: 07/23/19 08:28 Dose: 0.25 mg Documented by: Carvedilol (Coreg) 3.125 mg PO BIDWM [facility] Last Admin: 07/23/19 08:29 Dose: 3.125 mg Documented by: Escitalopram Oxalate (Lexapro) 10 mg PO DAILY [facility] Last Admin: 07/23/19 08:28 Dose: 10 mg Documented by: Ferrous Sulfate (Ferrous Sulfate) 324 mg PO DAILY [facility] Last Admin: 07/23/19 08:29 Dose: 324 mg Documented by: HCTZ/Losartan Potassium (Hyzaar 50-12.5 Mg Tab) 1 tab PO DAILY [facility] Last Admin: 07/23/19 08:29 Dose: 1 tab Documented by: Piperacillin Sod/Tazobactam (Sod 4.5 gm/ Sodium Chloride) 100 mls @ 100 mls/hr IV Q6HR [facility] Stop: 07/26/19 11:59 Loperamide HCl (Imodium) 2 mg PO TID PRN PRN Reason: Diarrhea Last Admin: 07/22/19 17:15 Dose: 2 mg Documented by: Nitroglycerin (Nitrostat) 0.4 mg SL Q5MIN X 3 DOSES PRN PRN Reason: Chest Pain Pantoprazole Sodium (Protonix) 40 mg PO BIDAC [facility] Last Admin: 07/23/19 06:05 Dose: 40 mg Documented by: Potassium Chloride (K-Dur) 20 meq PO BIDWM [facility] Last Admin: 07/23/19 08:29 Dose: 20 meq Documented by: Prednisone (Prednisone) 20 mg PO DAILYWM [facility] Last Admin: 07/23/19 08:34 Dose: 20 mg Documented by: Fluticasone/Salmeterol (Advair 250-50 Diskus) 1 puff IH BID [facility] Last Admin: 07/23/19 08:28 Dose: 1 puff Documented by: Sodium Chloride (Saline Flush) 1 syr IVF Q8HR PRN PRN Reason: Keep vein open Sucralfate (Carafate) 1 gm PO ACHS [facility] Last Admin: 07/23/19 06:05 Dose: 1 gm Documented by: ALLERGIES ciprofloxacin [From Cipro] Adverse Reaction (Verified 07/19/19 08:56) hydrocodone Adverse Reaction (Verified 07/19/19 08:56) Abdominal Pain gi cocktail Adverse Reaction (Uncoded 06/01/19 14:27) DISCONTINUED MEDICATIONS COUMADIN 4 MG DAILY IS ON HOLD DUE TO ELEVATED INR ATROPINE VISTARIL NEW PRESCRIPTIONS: PIPERACILLIN SODIUM/TAZOBACTAM SODIUM 4.5 GRAM IV Q 56 HOURS SMOKING: NOT APPLICABLE DISEASE SPECIFIC EDUCATION: MEDICATIONS TRANSITIONAL CARE ACTIVITY LAB REVIEW: 07/23/19 04:53 07/23/19 04:53 07/23/19 05:03: Puncture Site Lb, O2 Saturation 92.0 L, ABG pH 7.451 H, ABG pCO2 44.8, ABG pO2 62.0 L, ABG HCO3 31.2 H, ABG Total CO2 33 H, ABG Base Excess 7 H, Milton Test +, O2 Delivery Device Bnc, Oxygen Liter Flow 2.00, FiO2 % 28.0 07/23/19 04:53: Sodium 136.6, Potassium 4.02, Chloride 98.9, Carbon Dioxide 32.5 H, Anion Gap 9.22, BUN 17.4 H, Creatinine 0.71, Estimated GFR (MDRD) 80.00, BUN/Creatinine Ratio 24.50, Glucose 89.0, Calcium 10.09, Total Bilirubin 0.24, AST 66.0 H, ALT 22.5, Alkaline Phosphatase 173.7 H, Total Protein 6.29 L, Album in 2.92 L, Globulin 3.37, Albumin/Globulin Ratio 0.86 07/23/19 04:53: PT 41.3 H D, INR 4.59 H* 07/23/19 04:53: WBC 12.65 H, RBC 3.77 L, Hgb 10.9 L, Hct 33.5 L, MCV 88.9, MCH 28.9, MCHC 32.5, RDW Coeff of Elie 15.3 H, Plt Count 366, Immature Gran % (Auto) 1.3, Neut % (Auto) 78.8 H, Lymph % (Auto) 11.9, [place] % (Auto) 7.6, Eos % (Auto) 0.2, Baso % (Auto) 0.2, Immature Gran # (Auto) 0.2, Neut # (Auto) 10.0 H, Lymph # (Auto) 1.5, [place] # (Auto) 1.0, Eos # (Auto) 0.0, Baso # (Auto) 0.0 PLAN: DISCHARGE TO TRANSITIONAL CARE DIET: REGULAR TOLERATED BOOST SUPPLEMENT DAILY DIETITIAN CONSULT ACTIVITY: TOLERATED BATHROOM WITH ASSISTANCE UP TO CHAIR TOLERATED FOR MEALS AMBULATE WITH OXYGEN AND ROLLATOR TWICE DAILY OXYGEN PER NASAL CANNULA AT 2 LITERS CONTINUOUS CBC, CMP EVERY OTHER DAY PT/INR DAILY VITAL SIGNS Q 12 HOURS PULSE OXIMETRY Q 12 HOURS AND PRN CODE STATUS: DO NOT RESUSCITATE 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 SHE IS INDEPENDENT WITH MOST ADL'S, BUT REQUIRES ASSISTANCE WITH BATH SET UP AND DRESSING. SHE REQUIRES ASSISTANCE OF ONE STAFF MEMBER FOR TRANSFERS AND AMBULATION TO THE BATHROOM. 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 SHE IS CONTINENT OF BOWEL AND BLADDER. HYDRATION STATUS IS FAIR. SKIN CONDITION IS GOOD EXCEPT FOR A SMALL SKIN TEAR (2.5 MM) NOTED TO THE RIGHT THIGH. SCATTERED AREAS OF E CCHYMOSIS NOTED TO THE UPPER EXTREMITIES. MRS. STEINBERG IS OXYGEN DEPENDENT AND REQUIRES 2 LITERS OF CONTINUOUS OXYGEN. MD JANE SMILEY, WHEELMAN
[2019-07-23] MEDS: IMODIUM PO PRN (11:10)
--- NOTE | 2019-07-23 11:31 | DS ---
DATE OF SERVICE: 07/23/2019 FINAL DIAGNOSIS: 1. Pneumonia, right lung being treated with Zosyn 2. Anemia required blood transfusion two units. The patient is feeling a lot better after the blood transfusion. The patient has symptomatic anemia 3. Coagulopathy with increased INR, being treated by holding Coumadin, will watch INR daily DISCHARGE INSTRUCTIONS: Discharge the patient to swing bed. MEDICATIONS AT DISCHARGE: Advair diskus 250-50mcg one inhalation BID Combivent Respimat 20-100 inhalation QID Albuterol 2.5mg TID Ipratropium 2 spray intranasal BID Hyzaar 50-12.5mg PO daily Carafate 10ml PO ACHS Lexapro 10mg PO daily Protonix 40mg BID Warfarin 4mg PO WPM Xanax 0.25mg PO TID Prednisone 10mg PO daily Coreg 3.125mg PO BID Levaquin 250mg PO daily Klor-con 20meq PO BID DIET INSTRUCTIONS: As tolerated ACTIVITY: As tolerated SMOKING: N/A DISEASE SPECIFIC EDUCATION: SWING BED PNEUMONIA CONTINUED ANTIBIOTICS HOSPITAL COURSE: Melissa Shipley was hospitalized with cough and congestion. The patient has right lung pneumonia. The patient has recent history of pseudomonas right lung pneumonia. The patient underwent Coronavirus swab which was negative. The patient has been on Zosyn for past 4-5 days along with steroid by mouth. Her condition has improved some clinically. She is going to need more antibiotics. Unable to get any NEB treatment because of coronavirus protocols. In any case the patient initially was given 2 days of IV fluids. Appetite seems to have improved. She is up and about with help. The patient is going to be discharged to swing bed. She will further get IV antibiotics. CONDITION: Stable. TIME SPENT: More than 60 minutes. MTDD
--- NOTE | 2019-07-23 11:32 | PN ---
07/19/2019: Level 5 07/20/2019: Intermediate 07/21/2019: Intermediate 07/22/2019: Intermediate 07/23/2019: D as in discharge MTDD
[2019-07-23] MEDS ORDERED: ZOSYN 4.5 GM 4.5 GM in SODIUM CHLORIDE 100 ML IV SCH (12:00)
== END 2019-07-23 11:22 | disposition swing bed (61) | DRG 194 ==
LOC: ED 08:37 → SCU 10:21 → MEDSURG B 07-20 11:12
PROVIDERS: ADMIT Internal Medicine; ATTEND Internal Medicine
DX: F32.9 Major depressive disorder, single episode, unspecified; J44.0 Chronic obstructive pulmonary disease with (acute) lower respiratory infection; R06.02 Shortness of breath; Z86.718 Personal history of other venous thrombosis and embolism; Z79.899 Other long term (current) drug therapy; R62.7 Adult failure to thrive; R64 Cachexia; R07.81 Pleurodynia; D64.9 Anemia, unspecified; R53.1 Weakness; Z79.01 Long term (current) use of anticoagulants; Z99.81 Dependence on supplemental oxygen; J18.9 Pneumonia, unspecified organism; J96.10 Chronic respiratory failure, unspecified whether with hypoxia or hypercapnia; R19.7 Diarrhea, unspecified; I10 Essential (primary) hypertension; R53.83 Other fatigue; J20.9 Acute bronchitis, unspecified; E87.1 Hypo-osmolality and hyponatremia

== ENCOUNTER 2019-11-01 10:42 | Inpatient (IN) ==
--- NOTE | 2019-11-01 11:49 | ED.PDOC ---
General ED Provider: Dr. RADHA GARCIA MD Chief Complaint: Cough Stated Complaint: cough Time Seen by Physician: 11:48 Mode of Arrival: Wheelchair Information Source: Patient Primary Care Provider: RAISA RASCON Nursing and Triage Documentation Reviewed and Agree: Yes Does patient meet sepsis criteria?: No System Inflammatory Response Syndrome: Not Applicable Sepsis Protocol: For patient's 13 years and over: Temp is 96.8 and below OR 101 and greater Pulse >90 BPM Resp >20/minute Acutely Altered Mental Status Are patient's symptoms suggestive of a new infection, such as: -Pneumonia -Skin, Soft Tissue -Endocarditis -UTI -Bone, Joint Infection -Implantable Device -Acute Abdominal Infection -Wound Infection -Meningitis -Blood Stream Catheter Infection -Unknown Respiratory Complaint Exam Shortness of Air Complaint/Exam Onset/Duration: ~3 day ago Symptoms Are: Worse Timing: Constant Initial Severity: Moderate Current Severity: Moderate Character: Reports Dyspnea at rest, Dyspnea on exertion and Orthopnea Aggravating: Reports Movement, Recumbent position, URI and Weather Alleviating: Reports Bronchodilators, Oxygen, OTC Meds (guaifenesin ) and Upright position Associated Signs and Symptoms: Reports Cough, Wheezing, Chest pain with cough, Fever, Chills, Diaphoresis, Rapid breathing, Labored breathing and Decreased intake Related History: Reports Similar episode History of Healthcare-Acquired Pneumonia: No Pulmonary Embolism Risk Factors: Reports Previous PE Cardiac Risk Factors: Denies Smoking (quit ~5 years ago) Pseudomonas Risk Factors: Reports Chronic Lung Disease and Chronic steriod use Tuberculosis Risk Factors: Reports Corticosteriod use Home Oxygen Use: Yes Recent Stress Test: No Recent Echo/LV Function: No Respiratory Distress: Mild Stridor Present: No Tracheal Deviation: No Subcutaneous Emphysema: No Retractions: Not Present Diminished Breath Sounds: Yes Prolonged Expiratory Phase: Yes Unable to Speak Full Sentences: No Fatigue: Yes (mild) Leg Swelling: No Elizabeth's Sign Present: No Grunting Respirations: No Differential Diagnoses: COPD Exacerbation, Pneumonia, SARS, Tuberculosis, Bronchitis, Bronchiolitis, RSV, Mycoplasma and Pertussis Review of Systems Review Of Systems Constitutional: Reports No symptoms Respiratory: Reports Cough (occasionally productive (green)), Orthopnea, Short of air, Wheezing and Other (chest wall/rib pain secondary to cough) All Other Systems: Reviewed and Negative [facility] Medical History Arrhythmia Asthma Bronchitis COPD (chronic obstructive pulmonary disease) History of hysterectomy Hypertension Pneumonia Pulmonary emboli Family History BROTHER No problems noted. Mother COPD (chronic obstructive pulmonary disease) Other Cancer Social History Smoking and tobacco status: Former smoker History of recent travel: No Female Reproductive History Menstrual Hx Hysterectomy: Yes Hx Tubal Ligation: No Physical Exam Physical Exam Appearance: Reports Ill-appearing, No pain distress and Thin Ill-appearing: Moderate Pain Distress: Mild Eyes: Reports BETH, EOMI and Conjunctiva clear ENT: Reports Nose normal Neck: Nonsupple Respiratory: Reports Airway patent, Breath sounds equal, Breath sounds di minished (severe), Wheezes and Other (chest wall tenderness, respiratory fatigue); Denies Rhonchi Cardiovascular: Reports RRR and Other (diminished) GI/: Reports Soft, Nontender and Bowel sounds normal Musculoskeletal: Reports Normal strength, ROM intact and Other (fatigued) Skin: Reports Warm, Dry and Normal color Neurological: Reports Sensation intact, Motor intact, Cranial nerves intact, Alert and Oriented Psychiatric: Reports Affect appropriate and Mood appropriate Course Course Hematology/Chemistry: 11/01/19 12:37 11/01/19 12:37 Orders, Labs, Meds: Lab Review 11/01/19 11/01/19 11/01/19 12:37 12:37 12:37 WBC 12.40 H RBC 4.19 L Hgb 11.8 L Hct 37.3 MCV 89.0 MCH 28.2 MCHC 31.6 L RDW Coeff of Elie 15.5 H Plt Count 270 Immature Gran % (Auto) 0.5 Neut % (Auto) 84.9 H Lymph % (Auto) 7.8 L Wright % (Auto) 6.3 Eos % (Auto) 0.2 Baso % (Auto) 0.3 Neut # (Auto) 10.5 H Lymph # (Auto) 1.0 Wright # (Auto) 0.8 Eos # (Auto) 0.0 Baso # (Auto) 0.0 Immature Gran # (Auto) 0.1 ESR 69 H Puncture Site O2 Saturation ABG pH ABG pCO2 ABG pO2 ABG HCO3 ABG Total CO2 ABG Base Excess Milton Test O2 Delivery Device Oxygen Liter Flow Sodium 134.1 L Potassium 4.11 Chloride 93.9 L Carbon Dioxide 34.7 H Anion Gap 9.61 BUN 13.0 Creatinine 0.94 Estimated GFR (MDRD) 58.00 BUN/Creatinine Ratio 13.82 Glucose 97.9 Lactic Acid 0.80 Calcium 10.63 H Magnesium 1.91 Total Bilirubin 0.32 AST 29.1 ALT 13.6 Alkaline Phosphatase 153.1 H NT-Pro-B Natriuret Pep 237.000 Total Protein 7.66 Albumin 3.76 Globulin 3.90 Albumin/Globulin Ratio 0.96 Procalcitonin 11/01/19 11/01/19 12:37 14:28 WBC RBC Hgb Hct MCV MCH MCHC RDW Coeff of Elie Plt Count Immature Gran % (Auto) Neut % (Auto) Lymph % (Auto) Wright % (Auto) Eos % (Auto) Baso % (Auto) Neut # (Auto) Lymph # (Auto) Wright # (Auto) Eos # (Auto) Baso # (Auto) Immature Gran # (Auto) ESR Puncture Site Rrad O2 Saturation 99.0 ABG pH 7.401 ABG pCO2 52.8 H ABG pO2 122.0 H ABG HCO3 32.8 H ABG Total CO2 34 H ABG Base Excess 8 H Milton Test + O2 Delivery Device Nc Oxygen Liter Flow 3.00 Sodium Potassium Chloride Carbon Dioxide Anion Gap BUN Creatinine Estimated GFR (MDRD) BUN/Creatinine Ratio Glucose Lactic Acid Calcium Magnesium Total Bilirubin AST ALT Alkaline Phosphatase NT-Pro-B Natriuret Pep Total Protein Albumin Globulin Albumin/Globulin Ratio Procalcitonin 0.05 Orders Category Date Time Status ABG DRAW REQUEST Stat CARDIO 11/01/19 14:29 Completed EKG-(ED ONLY) Stat CARDIO 11/01/19 15:30 Ordered ED APPLY O2 .ONCE EMERGENCY 11/01/19 15:29 Active ABG Stat LAB 11/01/19 14:28 Completed BLOOD CULTURE (ED ONLY) Stat LAB 11/01/19 15:05 Received C-REACTIVE PROTEIN Stat LAB 11/01/19 12:37 Received CBC W/ AUTO DIFF DAILY@0600 LAB 11/02/19 06:00 Ordered CBC W/ AUTO DIFF DAILY@0600 LAB 11/03/19 06:00 Ordered CBC W/ AUTO DIFF Stat LAB 11/01/19 12:37 Completed COMPREHENSIVE METABOLIC PANEL DAILY@0600 LAB 11/02/19 06:00 Ordered COMPREHENSIVE METABOLIC PANEL DAILY@0600 LAB 11/03/19 06:00 Ordered COMPREHENSIVE METABOLIC PANEL Stat LAB 11/01/19 12:37 Completed ESR Stat LAB 11/01/19 12:37 Completed LACTIC ACID Stat LAB 11/01/19 12:37 Completed MAGNESIUM Stat LAB 11/01/19 12:37 Completed NT-PROBNP Stat LAB 11/01/19 12:37 Completed PROCALCITONIN Stat LAB 11/01/19 12:37 Completed SARS-COV-2, AALIYAH Stat LAB 11/01/19 12:37 Received SPUTUM CULTURE Stat LAB 11/01/19 12:16 Uncollected Ceftriaxone/D5w 1 gm Premix [Rocephin 1 gm/50 ml D5w] MEDS 11/01/19 16:00 Active 1 gm in 50 ml IV DAILY Methylprednisolone Sod Succ/Pf [Solu-Medrol 40 mg] MEDS 11/01/19 15:30 Discontinued 40 mg IVP ONCE STA CXR [CHEST, 1V AP ONLY] Stat RADS 11/01/19 12:21 Completed Medications Generic Name Dose Route Start Last Admin Trade Name Freq PRN Reason Stop Dose Admin CEFTRIAXONE/D5W 1 GM PREMIX 1 gm in 50 mls @ 75 mls/hr 11/01/19 16:00 11/01/19 15:53 Rocephin 1 Gm/50 Ml D5w IV 11/04/19 15:59 75 mls/hr DAILY OLVIN Administration Discontinued Medications Generic Name Dose Route Start Last Admin Trade Name Freq PRN Reason Stop Dose Admin Methylprednisolone Sodium Succinate 40 mg 11/01/19 15:30 11/01/19 15:53 Solu-Medrol 40 Mg IVP 11/01/19 15:31 40 mg ONCE STA Administration Patient has leukocytosis with a left shift. Her CXR showed a basilar pneumonia with a possible apical pneumonia. Patient is agreeable to staying in the hospital. Patient was admitted in stable condition. I spoke with Dr Rascon, who accepted. He gave several orders, which will be incorporated into the admission orders. Vital Signs: Temp Pulse Resp BP Pulse Ox 11/01/19 10:42 98.5 F 91 H 22 99/61 90 L Discharge Plan Discharge Patient Disposition: ADMITTED INPATIENT Discharge Problem: Acute exacerbation of chronic obstructive pulmonary disease Pneumonia Qualifiers: Pneumonia type: due to unspecified organism Laterality: unspecified laterality Lung location: lower lobe of lung Qualified Code(s): J18.9 - Pneumonia, unspecified organism ED Provider: RADHA GARCIA Condition: Stable Interventions: Discharge Last Done: 11/01/19 15:50 ED Care Summary Last Done: 11/01/19 15:50
[2019-11-01 12:45] LABS: HEMATOCRIT 37.3 % (37.0-47.0)
--- NOTE | 2019-11-01 13:14 | DI ---
EXAM: CHEST FRONTAL VIEW HISTORY: Shortness of breath. COMPARISON: 07/27/2019 FINDINGS: Heart size remains within normal limits. There is atherosclerotic disease. There is diff use, chronic appearing interstitial accentuation. Lungs are hyperinflated and there is relative luce ncy of the lung zones suggesting pulmonary emphysema. There is mild density in the right base which is more noticeable or new since prior study. There is mild density in the right apex which similar t o that previously seen. Nodules are seen within the lungs bilaterally, more noticeable on the right. Some of these nodules are likely calcified granulomas. No vascular congestion. Questionable trace right pleural effusion. No pneumothorax. IMPRESSION: 1. Significant chronic obstructive pulmonary disease. 2. Probable right base pneumonia. Cannot exclude right apical pneumonia or other regional pathology in this region. 3. Scattered pulmonary nodules.
[2019-11-01] MEDS ORDERED: SOLU-MEDROL 40 MG IVP STA (15:30)
[2019-11-01] MEDS: ROCEPHIN 1 GM/50 ML D5W 1 GM/50 ML BAG IV SCH (15:53)
[2019-11-01] MEDS ORDERED: PNEUMOVAX 23 IM ONE (16:49)
[2019-11-01 17:01] VITALS: BMI 16.6
[2019-11-01] MEDS: SOLU-MEDROL 40 MG IVP SCH (21:54)
[2019-11-02 05:12] LABS: HEMATOCRIT 38.7 % (37.0-47.0)
[2019-11-02] MEDS: SOLU-MEDROL 40 MG IVP SCH ×3 (05:46→20:31)
[2019-11-02] MEDS: ZITHROMAX 500 MG in SODIUM CHLORIDE 250 ML IV SCH (07:59)
--- NOTE | 2019-11-02 07:59 | HP ---
DATE OF SERVICE: 11/01/19 HISTORY OF PRESENT ILLNESS: 79-year-old white female who has been having fever over the weekend along with cough and right-sided pleuritic type pain. She has a long history of COPD and is oxygen dependent. She states she has ran a low grade fever since Friday. PAST MEDICAL HISTORY: Severe COPD, oxygen dependent Anemia History of acute respiratory failure - the patient has chronic respiratory failure History of recurrent pneumonia Pulmonary fibrosis Pulmonary nodule followed by Dr. 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 Positive for low grade fever. No night sweats. No malaise, lethargy. No chills. HEENT: Eyes: No visual changes. No eye pain. No eye discharge. ENT: No runny nose. No epistaxis. No sinus pain. No sore throat. No odynophagia. No ear pain. No congestion. RESPIRATORY: Positive for cough, shortness of breath. No hemoptysis. CARDIOVASCULAR: Chest wall pain on the right. No angina symptoms. No CHF symptoms. No palpitations. No PND. No orthopnea. GASTROINTESTINAL: No abdominal pain. No nausea or vomiting. No diarrhea or constipation. No hematemesis. No hematochezia. GENITOURINARY: No urgency. No frequency. No dysuria. No hematuria. No obstructive symptoms. No discharge. No pain. No significant abnormal bleeding. MUSCULOSKELETAL: No musculoskeletal pain. No joint swelling. No arthritis. NEUROLOGICAL: No headache. No neck pain. No syncope. No seizures. No dizziness. PSYCHIATRIC: Not anxious. No depression. No suicidal thoughts. No homicidal thoughts. SKIN: No rash. No lesions. No wounds. ENDOCRINE: No unexplained weight loss. No weight gain. HEMATOLOGIC/LYMPHATIC: No anemia. No purpura. No petechiae. No prolonged or excessive bleeding. No palpable lymph nodes. PERSONAL/FAMILY/SOCIAL HISTORY: She lives at home with her . Again, she is oxygen dependent. She quit smoking greater than 5 years ago. No alcohol or ilicit drug use. MEDICATIONS: Fluticasone 250-50 mcg/dose one inh b.i.d. Combivent 4 gm INH q.i.d. Albuterol 2.5 mg INH t.i.d. Ipratropium two spray intranasal b.i.d. Sucralfate 10 mL p.o. a.c. h.s. Alprazolam 0.25 mg p.o. t.i.d. p.r.n. Potassium Chloride 20 mEq p.o. b.i.d. Carvedilol 3.125 mg p.o. b.i.d. with meal Acetaminophen 650 mg p.o. q.4h p.r.n. Warfarin 4 mg p.o. q.p.m. 30 days Brimonidine one drop both eyes b.i.d. Prednisone 5 mg p.o. daily Protonix 40 mg p.o. daily ALLERGIES: CIPROFLOXACIN, HYDROCODONE PHYSICAL EXAMINATION: VITAL SIGNS: Temperature 98.5, heart rate 91, respirations 22, BP 99/61, pulse ox 90% on 3L. GENERAL: The patient is pale, cachetic. HEENT: Head normocephalic, atraumatic. Eyes: Extraocular muscles are intact. Pupils are equal, round and reactive to light and accommodation. Ears: No lesions. Nose appeared normal. Throat: No exudate or erythema. NECK: Supple. No JVD, no carotid bruit. No lymphadenopathy or thyromegaly. LUNGS: Severely diminished breath sounds bilaterally with bilateral expiratory wheeze, greater diminished on the right. Percussion note normal. Chest symmetrical. HEART: Regular rate and rhythm. S1, S2, no S3. No murmur. No cyanosis or clubbing. No ascites. Pulses: Dorsalis pedis and posterior tibial pulses +1 to +2 bilaterally. ABDOMEN: Soft. Nontender. Bowel sounds active. No CVA tenderness. No mass felt. EXTREMITIES: No edema. Full range of motion of all extremities, equal. NEUROLOGIC: No focal deficit. Cranial nerves II through XII are grossly intact. No headache, no double vision or headache. SKIN: Not dry. Intact. Turgor - normal. LYMPHATIC: No palpable lymph nodes/no lymphedema. MUSCULOSKELETAL: Normal joints with no swelling. Muscle tone is normal. LABS: White count 12.4, hemoglobin 11.8, hematocrit 37.3, platelets 270. Sodium 134, potassium 4.11, BUN 13, creatinine 0.94, glucose 97, lactic acid 0.8, calcium 10.6, magnesium 1.9, alkaline phosphatase 153, pro-BNP 237. ABG on 3L shows 02 sat 99%, pH 7.401, pc02 52.8, p02 of 122, bicarb 32.8, total c02 34, base excess 8. Chest x-ray shows significant COPD, probable right basilar pneumonia, cannot exclude right apical pneumonia, scattered pulmonary nodules. ASSESSMENT: 1. RIGHT BASILAR PNEUMONIA 2. SEVERE COPD, OXYGEN DEPENDENT 3. HYPOTENSION 4. SHORTNESS OF BREATH 5. HISTORY OF PE ON COUMADIN PLAN: 1. We will admit. 2. Routine telemetry orders. 3. COVID test. Considered possible source of infection to be in isolation until test has returned. 4. Normal Saline at 75 cc/hr. 5. Solu-Cortef 125 mg IV q.8hr, OLVIN. 6. Rocephin 1 gm IV daily. 7. Zithromax 500 mg p.o. daily times three days. 8. Oxygen anywhere from 1 to 3L as needed. 9. Repeat ABGs in 2 hours. 10. Blood culture times two. 11. Sputum culture. 12. Continue all home medications. 13. Daily INR. 14. Will monitor for hyperglycemia due to steroids. 15. Albuterol inhaler two puffs q.4hr OLVIN. 16. Will follow closely. TIME SPENT: More than 70 minutes. MTDD
[2019-11-02] MEDS ORDERED: ROCEPHIN 1 GM/50 ML D5W 1 GM/50 ML BAG IV SCH (09:00)
--- NOTE | 2019-11-02 09:29 | PCM.PROG ---
Attending Provider: ATTENDING PROVIDER: Dr. RAISA RASCON This patient is seen with Zuly Henry, Nurse Practitioner. DATE OF SERVICE: 11/02/19 SUBJECTIVE: This 79 year old /WHITE F was hospitalized 11/01/19. The patient is resting comfortably. She has cough with thick yellow sputum. No fever. Ate well last night. REVIEW OF SYSTEMS: CONSTITUTIONAL: No night sweats. No fatigue, malaise, lethargy. No fever or chills. HEENT: Eyes: No visual changes. No eye pain. No eye discharge. ENT: No runny nose. No epistaxis. No sinus pain. No odynophagia. No congestion. RESPIRATORY: Cough, no congestion. No hemoptysis. Shortness of breath. CARDIOVASCULAR: No angina symptoms. No CHF symptoms. No atypical chest pain for CAD. No palpitations. No orthopnea.. GASTROINTESTINAL: No abdominal pain. No nausea or vomiting. No diarrhea or constipation. No hematemesis. No hematochezia. GENITOURINARY: No urgency. No frequency. No dysuria. No hematuria. No obstructive symptoms. No discharge. No pain. No significant abnormal bleeding. MUSCULOSKELETAL: No musculoskeletal pain; no joint swelling. Weakness. NEUROLOGICAL: Awake, alert, oriented to time, place and person. No headache. No neck pain. No syncope. No seizures. No dizziness. PSYCHIATRIC: Not anxious. No depression. No suicidal thoughts. No homicidal thoughts. SKIN: No rash. No lesions. No wounds. ENDOCRINE: No unexplained weight loss. No weight gain. HEMATOLOGIC/LYMPHATIC: No anemia. No purpura. No petechiae. No prolonged or excessive bleeding. No palpable lymph nodes. PHYSICAL EXAMINATION: GENERAL: The patient is awake, alert and oriented, lying in bed in no distress. VITAL SIGNS: Temperature 97.2 F, Pulse 88, Respiratory Rate 22, BP 103/67, Pulse Ox 97% HEENT: Head normocephalic, atraumatic. Eyes: Extraocular muscles are intact. Pupils are equal, round and reactive to light and accommodation. Ears: No lesions. Nose appeared normal. Throat: No exudate or erythema. NECK: Supple. No JVD, no carotid bruit. No lymphadenopathy or thyromegaly. LUNGS: Diminished breath sounds greater diminished on the right. Expiratory wheezing bilaterally. Clear to auscultation. Percussion note normal. Chest symmetrical. HEART: S1, S2, no S3. No murmurs. No cyanosis or clubbing. No ascites. Pulses: Dorsalis pedis and posterior tibial pulses +1 to +2 both sides. ABDOMEN: Soft. Non-tender. Bowel sounds active. No CVA tenderness. No mass felt. EXTREMITIES: No edema. Full range of motion of all extremities, equal. NEUROLOGIC: No focal deficit. Cranial nerves II through XII are grossly intact. No headache, no double vision or headache. SKIN: Not dry. Intact. Turgor-normal. LYMPHATIC: No palpable lymph nodes/no lymphedema. MUSCULOSKELETAL: Normal joints with no swelling. Muscle tone is normal. LAB REVIEW: 11/02/19 05:00 11/02/19 05:00 11/02/19 05:00: PT 47.8 H, INR 5.37 H* 11/02/19 05:00: Sodium 134.6, Potassium 4.50, Chloride 97.0 L, Carbon Dioxide 32.7 H, Anion Gap 9.40, BUN 15.5, Creatinine 0.72, Estimated GFR (MDRD) 79.00, BUN/Creatinine Ratio 21.52, Glucose 147.2 H, Calcium 10.52 H, Total Bilirubin 0 .15 L, AST 27.1, ALT 12.1, Alkaline Phosphatase 135.4, Total Protein 7.32, Albumin 3.59, Globulin 3.73, Albumin/Globulin Ratio 0.96 11/02/19 05:00: WBC 6.06 D, RBC 4.37, Hgb 12.1, Hct 38.7, MCV 88.6, MCH 27.7, MCHC 31.3 L, RDW Coeff of Elie 15.3 H, Plt Count 309, Immature Gran % (Auto) 0.5, Neut % (Auto) 86.9 H, Lymph % (Auto) 11.1, [place] % (Auto) 1.2, Eos % (Auto) 0.0, Baso % (Auto) 0.3, Neut # (Auto) 5.3, Lymph # (Auto) 0.7, [place] # (Auto) 0.1 L, Eos # (Auto) 0.0, Baso # (Auto) 0.0, Immature Gran # (Auto) 0.0 11/01/19 14:28: Puncture Site Rrad, O2 Saturation 99.0, ABG pH 7.401, ABG pCO2 52.8 H, ABG pO2 122.0 H, ABG HCO3 32.8 H, ABG Total CO2 34 H, ABG Base Excess 8 H, Milton Test +, O2 Delivery Device Nc, Oxygen Liter Flow 3.00 11/01/19 12:37: Procalcitonin 0.05 11/01/19 12:37: C-Reactive Prot, Quant 152 H 11/01/19 12:37: Lactic Acid 0.80 11/01/19 12:37: Sodium 134.1 L, Potassium 4.11, Chloride 93.9 L, Carbon Dioxide 34.7 H, Anion Gap 9.61, BUN 13.0, Creatinine 0.94, Estimated GFR (MDRD) 58.00, BUN/Creatinine Ratio 13.82, Glucose 97.9, Calcium 10.63 H, Magnesium 1.91, Total Bilirubin 0.32, AST 29.1, ALT 13.6, Alkaline Phosphatase 153.1 H, NT-Pro-B Natriuret Pep 237.000, Total Protein 7.66, Albumin 3.76, Globulin 3.90, A lbumin/Globulin Ratio 0.96 11/01/19 12:37: WBC 12.40 H, RBC 4.19 L, Hgb 11.8 L, Hct 37.3, MCV 89.0, MCH 28.2, MCHC 31.6 L, RDW Coeff of Elie 15.5 H, Plt Count 270, Immature Gran % (Auto) 0.5, Neut % (Auto) 84.9 H, Lymph % (Auto) 7.8 L, [place] % (Auto) 6.3, Eos % (Auto) 0.2, Baso % (Auto) 0.3, Neut # (Auto) 10.5 H, Lymph # (Auto) 1.0, [place] # (Auto) 0.8, Eos # (Auto) 0.0, Baso # (Auto) 0.0, Immature Gran # (Auto) 0.1, ESR 69 H ASSESSMENT: Please see below. 1. Right lower lobe pneumonia 2. Severe COPD, oxygen dependant 3. Anemia 4. Hypotension 5. Known scattered pulmonary nodules 6. Former smoker 7. History of PE 8. Hyper-coagulation PLAN: 1. Hold Coumadin till INR between 2 and 3 2. Continue IV antibiotics 3. Resume home medications 4. Hold Coreg if systolic less than 110. Plan and coordination of the patient's care discussed in the presence of Plastic Fabricator and nurse. SCRIBED BY: Luis REDD scribed while in presence of service performed by Dr. Rascon/Zuly Henry APRN on 11/02/19 ([id number])
[2019-11-02] MEDS ORDERED: PREDNISONE PO SCH (09:30)
[2019-11-02] MEDS: ROCEPHIN 1 GM/50 ML D5W 1 GM/50 ML BAG IV SCH (09:53)
[2019-11-02] MEDS: FERROUS SULFATE PO SCH (09:53)
[2019-11-02] MEDS: BRIMONIDINE TARTRATE 0.2% OPTH SOL EACHEYE SCH ×2 (09:53→20:32)
[2019-11-02] MEDS: COREG PO SCH ×3 (09:53→16:29)
[2019-11-02] MEDS: XANAX PO PRN ×2 (09:53→20:32)
[2019-11-02] MEDS: PROTONIX PO SCH (09:53)
[2019-11-02] MEDS: VENTOLIN HFA (PER PUFF-WITH SPACER) IH SCH ×3 (10:00→19:35)
--- NOTE | 2019-11-02 10:53 | PN ---
DATE OF SERVICE: 11/01/2019 SUBJECTIVE: The patient was seen and examined in the emergency department and history and physical was done. The patient has right lower lobe pneumonia. COVID is going to be ruled out. The patient is going to be on steroids and antibiotics. The patient is not in distress otherwise her condition is stable. TIME SPENT: More than 30 minutes. Plan and coordination of the patient's care discussed in the presence of nurse. ANETA
--- NOTE | 2019-11-02 14:24 | PN ---
DATE OF SERVICE: 11/02/2019 SUBJECTIVE: The patient was seen and examined with the Nurse Practitioner. History and physical was done along with Nurse Practitioner yesterday. Condition seems to have improved. Lungs have decreased breath sounds with good air entry. The patient's oximetry is acceptable. COVID pending. Cardiovascular status is stable. EKG showed sinus rhythm. LVH with no acute changes. TIME SPENT: More than 30 minutes. Plan and coordination of the patient's care discussed in the presence of nurse. ANETA
[2019-11-03] MEDS: VENTOLIN HFA (PER PUFF-WITH SPACER) IH SCH ×4 (05:10→19:55)
[2019-11-03 05:25] LABS: HEMATOCRIT 38.4 % (37.0-47.0)
[2019-11-03] MEDS: SOLU-MEDROL 40 MG IVP SCH ×3 (05:41→20:25)
[2019-11-03] MEDS: PROTONIX PO SCH (05:41)
[2019-11-03] MEDS: COREG PO SCH ×2 (08:41→17:09)
[2019-11-03] MEDS: ROCEPHIN 1 GM/50 ML D5W 1 GM/50 ML BAG IV SCH (08:41)
[2019-11-03] MEDS: XANAX PO PRN ×2 (08:42→20:25)
[2019-11-03] MEDS: FERROUS SULFATE PO SCH (08:42)
[2019-11-03] MEDS: BRIMONIDINE TARTRATE 0.2% OPTH SOL EACHEYE SCH ×2 (08:43→20:33)
[2019-11-03] MEDS: ZITHROMAX 500 MG in SODIUM CHLORIDE 250 ML IV SCH (10:28)
[2019-11-03] MEDS: LEVAQUIN PO SCH (10:39)
[2019-11-03] MEDS: PHENERGAN WITH CODEINE 6.25/10 MG/5 ML PO PRN ×2 (17:09→23:10)
[2019-11-04] MEDS: VENTOLIN HFA (PER PUFF-WITH SPACER) IH SCH ×6 (04:50→20:05)
[2019-11-04 04:55] LABS: HEMATOCRIT 39.5 % (37.0-47.0)
[2019-11-04] MEDS: SOLU-MEDROL 40 MG IVP SCH (05:30)
[2019-11-04] MEDS: PROTONIX PO SCH (05:31)
[2019-11-04] MEDS: LEVAQUIN PO SCH (05:31)
[2019-11-04] MEDS: COREG PO SCH ×2 (08:30→16:59)
[2019-11-04] MEDS: ADVAIR 250-50 DISKUS IH SCH ×2 (08:30→20:15)
[2019-11-04] MEDS: BRIMONIDINE TARTRATE 0.2% OPTH SOL EACHEYE SCH ×2 (08:31→20:15)
[2019-11-04] MEDS: FERROUS SULFATE PO SCH (08:31)
[2019-11-04] MEDS: XANAX PO PRN ×3 (08:31→20:16)
[2019-11-04] MEDS ORDERED: ADVAIR 500-50 DISKUS IH SCH (09:00)
--- NOTE | 2019-11-04 09:04 | PCM.PROG ---
Attending Provider: ATTENDING PROVIDER: Dr. RAISA RASCON This patient is seen with Brooke Wesley, Nurse Practitioner. DATE OF SERVICE: 11/04/19 SUBJECTIVE: This 79 year old /WHITE F was hospitalized 11/01/19. The patient is awake and resting in the bed. She continues to complain of cough with thick yellow sputum. COVID is still pending. She has been afebrile. We will continue the PO Levaquin. We are going to increase the Solu-Medrol to 80. we will start Advair 250 twice daily. REVIEW OF SYSTEMS: CONSTITUTIONAL: No night sweats. No fatigue, malaise, lethargy. No fever or chills. HEENT: Eyes: No visual changes. No eye pain. No eye discharge. ENT: No runny nose. No epistaxis. No sinus pain. No odynophagia. No congestion. RESPIRATORY: Cough, no congestion. No hemoptysis. Mild shortness of breath. CARDIOVASCULAR: No angina symptoms. No CHF symptoms. No atypical chest pain for CAD. No palpitations. No orthopnea.. GASTROINTESTINAL: No abdominal pain. No nausea or vomiting. No diarrhea or constipation. No hematemesis. No hematochezia. GENITOURINARY: No urgency. No frequency. No dysuria. No hematuria. No obstructive symptoms. No discharge. No pain. No significant abnormal bleeding. MUSCULOSKELETAL: No musculoskeletal pain; no joint swelling. Weakness. NEUROLOGICAL: Awake, alert, oriented to time, place and person. No headache. No neck pain. No syncope. No seizures. No dizziness. PSYCHIATRIC: Not anxious. No depression. No suicidal thoughts. No homicidal thoughts. SKIN: No rash. No lesions. No wounds. ENDOCRINE: No unexplained weight loss. No weight gain. HEMATOLOGIC/LYMPHATIC: No anemia. No purpura. No petechiae. No prolonged or excessive bleeding. No palpable lymph nodes. PHYSICAL EXAMINATION: GENERAL: The patient is awake, alert and oriented, lying/sitting in bed in no distress. VITAL SIGNS: Temperature 97.8 F, Pulse 86, Respiratory Rate 19, BP 167/74, Pulse Ox 96% HEENT: Head normocephalic, atraumatic. Eyes: Extraocular muscles are intact. Pupils are equal, round and reactive to light and accommodation. Ears: No lesions. Nose appeared normal. Throat: No exudate or erythema. NECK: Supple. No JVD, no carotid bruit. No lymphadenopathy or thyromegaly. LUNGS: Severe diminished breath sounds with rhonchi on right and tight expiratory wheezes. Percussion note normal. Chest symmetrical. HEART: S1, S2, no S3. No murmurs. No cyanosis or clubbing. No ascites. Pulses: Dorsalis pedis and posterior tibial pulses +1 to +2 both sides. ABDOMEN: Soft. Non-tender. Bowel sounds active. No CVA tenderness. No mass felt. EXTREMITIES: No edema. Full range of motion of all extremities, equal. NEUROLOGIC: No focal deficit. Cranial nerves II through XII are grossly intact. No headache, no double vision or headache. SKIN: Not dry. Intact. Turgor-normal. LYMPHATIC: No palpable lymph nodes/no lymphedema. MUSCULOSKELETAL: Normal joints with no swelling. Muscle tone is normal. LAB REVIEW: 11/04/19 04:49 11/04/19 04:49 11/04/19 04:49: Sodium 136.1, Potassium 4.58, Chloride 97.6 L, Carbon Dioxide 35.7 H, Anion Gap 7.38, BUN 23.1 H, Creatinine 0.92, Estimated GFR (MDRD) 59.00, BUN/Creatinine Ratio 25.10, Glucose 117.9 H, Calcium 10.82 H, Total Bilirubin 0.17 L, AST 28.4, ALT 14.5, Alkaline Phosphatase 119.4, Total Protein 7.14, A lbumin 3.57, Globulin 3.57, Albumin/Globulin Ratio 1.00 11/04/19 04:49: PT 31.5 H D, INR 3.44 11/04/19 04:49: WBC 11.25 H D, RBC 4.44, Hgb 12.3, Hct 39.5, MCV 89.0, MCH 27.7, MCHC 31.1 L, RDW Coeff of Elie 15.4 H, Plt Count 355, Immature Gran % (Auto) 0.4, Neut % (Auto) 89.6 H, Lymph % (Auto) 7.1 L, Arroyo % (Auto) 2.9, Eos % (Auto) 0.0, Baso % (Auto) 0.0, Neut # (Auto) 10.1 H, Lymph # (Auto) 0.8, Arroyo # (Auto) 0.3 L , Eos # (Auto) 0.0, Baso # (Auto) 0.0, Immature Gran # (Auto) 0.1 ASSESSMENT: Please see below. 1. Right lower lobe pneumonia sputum positive for pseudomonas 2. Severe COPD 3. COVID test pending 4. Anemia 5. Hypotension 6. Known scattered pulmonary nodules 7. Former smoker 8. History of PE 9. Hyper-coagulation PLAN: 1. Coreg scheduled 2. Solu-Medrol 80 IV Q 8 hours. 3. Advair twice a day Plan and coordination of the patient's care discussed in the presence of Prism Measurer and nurse. SCRIBED BY: LEE RODRIGUEZ Attending Anesthesiologist scribed while in presence of service performed by Dr. Rascon/Brooke Wesley APRN on 11/04/19 ([id number])
[2019-11-04] MEDS: PHENERGAN WITH CODEINE 6.25/10 MG/5 ML PO PRN ×2 (10:39→20:16)
[2019-11-04] MEDS ORDERED: SOLU-MEDROL 40 MG IVP SCH (13:00)
[2019-11-04] MEDS: SOLU-MEDROL 125 MG IVP SCH ×2 (13:04→20:16)
[2019-11-05 05:18] LABS: HEMATOCRIT 37.1 % (37.0-47.0)
[2019-11-05] MEDS: VENTOLIN HFA (PER PUFF-WITH SPACER) IH SCH ×4 (05:30→19:40)
[2019-11-05] MEDS: SOLU-MEDROL 125 MG IVP SCH ×3 (05:49→20:41)
[2019-11-05] MEDS: PROTONIX PO SCH (05:50)
[2019-11-05] MEDS: LEVAQUIN PO SCH (05:50)
--- NOTE | 2019-11-05 08:57 | PCM.PROG ---
Attending Provider: ATTENDING PROVIDER: Dr. RAISA RASCON This patient is seen with Brooke Wesley, Nurse Practitioner. DATE OF SERVICE: 11/05/19 SUBJECTIVE: This 79 year old /WHITE F was hospitalized 11/01/19. The patient is resting comfortably in the bed. She continues to complain of cough with thick sputum that is difficult expel. We will encourage more oral fluids and begin Mucinex. We will encourage her to cough and deep breathe. INR today is 2.45. We ill restart her Coumadin this evening. REVIEW OF SYSTEMS: CONSTITUTIONAL: No night sweats. No fatigue, malaise, lethargy. No fever or chills. HEENT: Eyes: No visual changes. No eye pain. No eye discharge. ENT: No runny nose. No epistaxis. No sinus pain. No odynophagia. No congestion. RESPIRATORY: Cough, no congestion. No hemoptysis. Mild shortness of breath. CARDIOVASCULAR: No angina symptoms. No CHF symptoms. No atypical chest pain for CAD. No palpitations. No orthopnea.. GASTROINTESTINAL: No abdominal pain. No nausea or vomiting. No diarrhea or constipation. No hematemesis. No hematochezia. GENITOURINARY: No urgency. No frequency. No dysuria. No hematuria. No obstructive symptoms. No discharge. No pain. No significant abnormal bleeding. MUSCULOSKELETAL: No musculoskeletal pain; no joint swelling. Weakness. NEUROLOGICAL: Awake, alert, oriented to time, place and person. No headache. No neck pain. No syncope. No seizures. No dizziness. PSYCHIATRIC: Not anxious. No depression. No suicidal thoughts. No homicidal thoughts. SKIN: No rash. No lesions. No wounds. ENDOCRINE: No unexplained weight loss. No weight gain. HEMATOLOGIC/LYMPHATIC: No anemia. No purpura. No petechiae. No prolonged or exc essive bleeding. No palpable lymph nodes. PHYSICAL EXAMINATION: GENERAL: The patient is awake, alert and oriented, lying/sitting in bed in no distress. VITAL SIGNS: Temperature 97.7 F, Pulse 75, Respiratory Rate 20, BP 145/72, Pulse Ox 95% HEENT: Head normocephalic, atraumatic. Eyes: Extraocular muscles are intact. Pupils are equal, round and reactive to light and accommodation. Ears: No lesions. Nose appeared normal. Throat: No exudate or erythema. NECK: Supple. No JVD, no carotid bruit. No lymphadenopathy or thyromegaly. LUNGS: Diminished breath sounds tight with expiratory wheezing bilaterally. Clear to auscultation. Percussion note normal. Chest symmetrical. HEART: S1, S2, no S3. No murmurs. No cyanosis or clubbing. No ascites. Pulses: Dorsalis pedis and posterior tibial pulses +1 to +2 both sides. ABDOMEN: Soft. Non-tender. Bowel sounds active. No CVA tenderness. No mass felt. EXTREMITIES: No edema. Full range of motion of all extremities, equal. NEUROLOGIC: No focal deficit. Cranial nerves II through XII are grossly intact. No headache, no double vision or headache. SKIN: Not dry. Intact. Turgor-normal. LYMPHATIC: No palpable lymph nodes/no lymphedema. MUSCULOSKELETAL: Normal joints with no swelling. Muscle tone is normal. LAB REVIEW: 11/05/19 05:00 11/05/19 05:00 11/05/19 05:00: PT 22.8 H D, INR 2.45 11/05/19 05:00: Sodium 135.3, Potassium 4.27, Chloride 98.2, Carbon Dioxide 33.6 H, Anion Gap 7.77, BUN 24.7 H, Creatinine 0.85, Estimated GFR (MDRD) 65.00, BUN/Creatinine Ratio 29.05, Glucose 124.5 H, Calcium 10.22 H, Total Bilirubin 0.11 L, AST 22.9, ALT 14.6, Alkaline Phosphatase 115.2, Total Protein 6.41, Albumin 3.21 L, Globulin 3.20, Albumin/Globulin Ratio 1.00 11/05/19 05:00: WBC 13.26 H, RBC 4.16 L, Hgb 11.8 L, Hct 37.1, MCV 89.2, MCH 28.4, MCHC 31.8, RDW Coeff of Elie 15.5 H, Plt Count 329, Immature Gran % (Auto) 0.8, Neut % (Auto) 90.4 H, Lymph % (Auto) 5.5 L, Johnson % (Auto) 3.2, Eos % (Auto) 0.0, Baso % (Auto) 0.1, Neut # (Auto) 12.0 H, Lymph # (Auto) 0.7, Johnson # (Auto) 0.4, Eos # (Auto) 0.0, Baso # (Auto) 0.0, Immature Gran # (Auto) 0.1 ASSESSMENT: Please see below. 1. Right lower lobe pneumonia sputum positive for pseudomonas 2. Severe COPD 3. Anemia 4. Hypotension 5. Known scattered pulmonary nodules 6. Former smoker 7. History of PE 8. Hyper-coagulation PLAN: 1. Restart Coumadin this evening 2. Continue Levaquin PO 3. Mucinex one tablet twice a day. 4. PT for weakness. Plan and coordination of the patient's care discussed in the presence of Food Safety Technician and nurse. SCRIBED BY: LEE RODRIGUEZ Funeral Home Director scribed while in presence of service performed by Dr. Rascon/Brooke Wesley APRN on 11/05/19 ([id number])
[2019-11-05] MEDS: ADVAIR 250-50 DISKUS IH SCH ×2 (09:11→20:41)
[2019-11-05] MEDS: COREG PO SCH ×2 (09:12→17:25)
[2019-11-05] MEDS: FERROUS SULFATE PO SCH (09:12)
[2019-11-05] MEDS: BRIMONIDINE TARTRATE 0.2% OPTH SOL EACHEYE SCH ×2 (09:12→20:41)
[2019-11-05] MEDS: MUCINEX PO SCH ×2 (09:12→20:40)
[2019-11-05] MEDS: XANAX PO PRN ×2 (09:32→21:20)
--- NOTE | 2019-11-05 13:22 | PN ---
DATE OF SERVICE: 11/03/2019 SUBJECTIVE: 79 year old white female hospitalized with pneumonia involving right lower lobe. The patient's condition overall seems to have improved. REVIEW OF SYSTEMS: CONSTITUTIONAL: No night sweats. No fatigue, malaise, lethargy. No fever or chills. HEENT: Eyes: No visual changes. No eye pain. No eye discharge. ENT: No runny nose. No epistaxis. No sinus pain. No sore throat. No odynophagia. No congestion. RESPIRATORY: Mild cough with congestion. No hemoptysis. Shortness of breath on exertion. CARDIOVASCULAR: No angina symptoms. No CHF symptoms. No atypical chest pain for CAD. No palpitations. No PND. No orthopnea. GASTROINTESTINAL: No abdominal pain. No nausea or vomiting. No diarrhea or constipation. No hematemesis. No hematochezia. Appetite seems to be improving. GENITOURINARY: No urgency. No frequency. No dysuria. No hematuria. No obstructive symptoms. No discharge. No pain. No significant abnormal bleeding. MUSCULOSKELETAL: No musculoskeletal pain; no joint swelling. NEUROLOGICAL: No headache. No neck pain. No syncope. No seizures. No dizziness. PSYCHIATRIC: Not anxious. No depression. No suicidal thoughts. No homicidal thoughts. SKIN: No rash. No lesions. No wounds. ENDOCRINE: No unexplained weight loss. No weight gain. HEMATOLOGIC/LYMPHATIC: No anemia. No purpura. No petechiae. No prolonged or excessive bleeding. No palpable lymph nodes. PHYSICAL EXAMINATION: VITAL SIGNS: Temperature 97.6, pulse 80, respiratory rate 18, blood pressure 140/70 and pulse ox 96%. HEENT: Head normocephalic, atraumatic. Eyes: Extraocular muscles are intact. Pupils are equal, round and reactive to light and accommodation. Ears: No lesions. Nose appeared normal. Throat: No exudate or erythema. NECK: Supple. No JVD, no carotid bruit. No lymphadenopathy or thyromegaly. LUNGS: Decreased breath sounds but clear to auscultation. Percussion note normal. Chest symmetrical. HEART: S1, S2, no S3. No murmurs. No cyanosis or clubbing. No ascites. Pulses: Dorsalis pedis and posterior tibial pulses +1 to +2 bilaterally. ABDOMEN: Soft. Nontender. Bowel sounds active. No CVA tenderness. No mass felt. EXTREMITIES: No edema. Full range of motion of all extremities, equal. NEUROLOGIC: No focal deficit. Cranial nerves II through XII are grossly intact. No headache, no double vision or headache. SKIN: Not dry. Intact. Turgor - normal. LYMPHATIC: No palpable lymph nodes/no lymphedema. MUSCULOSKELETAL: Normal joints with no swelling. Muscle tone is normal. LABS: Hgb 12.2, hct 38, WBC 16,000 normal differential, creatinine 0.7, BUN 18, potassium 4.7, ProBNP 237. ASSESSMENT: 1. Acute pneumonitis with severe chronic lung disease 2. COVID test still pending. PLAN: 1. Continue Levaquin because the grew Pseudomonas aeruginosa same organisms as before sensitive to Levaquin. 2. Discontinue Rocephin and Zithromax 3. Continue steroids The patient is improving. TIME SPENT: More than 30 minutes. Plan and coordination of the patient's care discussed in the presence of nurse. ANETA
[2019-11-05] MEDS: PHENERGAN WITH CODEINE 6.25/10 MG/5 ML PO PRN ×2 (13:36→23:14)
--- NOTE | 2019-11-05 14:01 | PN ---
DATE OF SERVICE: 11/04/2019 SUBJECTIVE: The patient was seen and examined with the Nurse Practitioner. The patient's COVID is negative. She is going to continue to be treated with Levaquin PO. Clinically the pneumonia seems to be resolving. The patient has severe chronic lung disease. TIME SPENT: More than 30 minutes. Plan and coordination of the patient's care discussed in the presence of nurse. ANETA
--- NOTE | 2019-11-05 15:57 | RS.PTINEVL ---
Subjective - Patient information Date of Evaluation: 11/05/19 Date of Arrival on Unit: 11/01/19 Admitted From:: Home Diagnosis: R pneumonia, COPD Usual Living Arrangement: With Spouse Home Environment: House, Stairs (few), Rail Medical History: COPD, Arthritis Medical History Comments:: anemia, pulmonary fibrosis, anxiety, DVT, PE, GERD, osteopenia, gout, DDD LATEX ALLERGY?: No Surgical History: Hysterectomy Surgical History Comments:: appey Medications: see chart Subjective Information/ Patient Comments:: pt states she feels like she is doing better. pt states she is willing to walk and do some LE exercises but does not feel up to trying UE ex due to SOA. - Level of function Prior to this admission, the patient could do the following:: Independent Selfcare, Independent ADL's, Independent Ambulation Current Level of Function: Partially Dependent Current Equipment Used at Home: oxygen, shower chair, rollator, nebulizer Interventions - Objective Patient Orientation: Person, Place, Time, Situation Current Interventions: IV's, Oxygen (2 liters), Telemetry Range of Motion - ROM Right Upper Extremity AROM: WFL's Left Upper Extremity AROM: WFL's Right Lower Extremity AROM: WFL's Left Lower Extremity AROM: WFL's Muscle Strength - Muscle Strength Right Upper Extremity Strength: Mild Weakness (grossly 4/5) Left Upper Extremity Strength: Mild Weakness (grossly 4/5) Right Lower Extremity Strength: Mild Weakness (hip flex 4-/5, knee flex/ext 4/5, ankle DF/PF 4/5) Left Lower Extremity Strength: Mild Weakness (hip flex 4-/5, knee flex/ext 4/5, ankle DF/PF 4/5) Sensation - Sensation Right Upper Extremity Sensation: Intact/Normal Left Upper Extremity Sensation: Intact/Normal Right Lower Extremity Sensation: Intact/Normal Left Lower Extremity Sensation: Intact/Normal Palpation Palpation Findings: None/Normal Balance - Sitting Balance and Reactions Static Sitting Balance: Good Dynamic Sitting Balance: Good - Standing Balance and Reactions Static Standing Balance: Fair Dynamic Standing Balance: Fair Functional Mobility - Bed Mobility Rolling R/L: Independent Scooting: Independent Supine to Sit: Independent Sit to Supine: Independent - Transfers Sit to Stand: CGA Stand to Sit: Supervision - Safety Awareness Safety Awareness: Good MARYJO INDEX SCORE: n/a Ambulation - Ambulation Assistive Device Used: Rollator Orthotic/Prosthetic Device: No Distance: 150ft with O2 Assistance needed with Ambulation: CGA Gait Deviations: Forward posture, Short stride Ambulation Comments: pt with no LOB during amb. Treatment time - Time with patient Length of Evaluation: 19 Total treatment time: 21 Patient Education - Education Patient Education: Activity Modification, Education of Plan of Care Teaching Recipient: Patient Teaching Methods: Discussion Comments: discussion regarding POC Assessment - Assessment Problem List:: Decreased level of function, Requires training/education, Decreased safety/Risk of falls, Weakness Rehab Potential: Good Further Therapy Indicated?: Yes Candidate for Swing Bed for Therapy Services?: Do not feel pt would be candidate for swing bed due to high level of function Evaluation Complexity: HISTORY: Medium, EXAM OF BODY SYSTEMS: Medium, CLINICAL PRESENTATION: Medium, CLINICAL DECISION MAKING: Medium Patient's Goal(s): Return home Short Term Goals GOAL #1: pt transfer sit to/from stand SBA Goal to be met by: 11/07/19 GOAL #2: pt amb 150ft with rwx with SBA no LOB with O2 Goal to be met by: 11/07/19 GOAL #3: Improve dyn stand balance fair+ Goal to be met by: 11/07/19 GOAL #4: . GOAL #5: . [place] Goals GOAL #1: Transfer sit to/from stand independently Goal to be met by: 11/08/19 GOAL #2: pt amb functional household distances with rwx and O2 independently Goal to be met by: 11/08/19 GOAL #3: Improve BLE strength 4 to 4+/5 Goal to be met by: 11/08/19 Plan Plan of Care: Therapeutic EX, Therapeutic Activity Other:: gait training Frequency of Treatment: 1-2 X day, as tolerated Duration of Treatment: 4 days Anticipated Discharge Destination: Home Treatment Diagnosis (ICD 10 Codes): M62.81 weakness. R26.81 balance impaired. R 26.2 difficulty walking Has the Physician been added for Co-signature?: Yes
[2019-11-05] MEDS: COUMADIN PO SCH (17:25)
[2019-11-06 04:45] LABS: HEMATOCRIT 37.6 % (37.0-47.0)
[2019-11-06] MEDS: VENTOLIN HFA (PER PUFF-WITH SPACER) IH SCH ×4 (04:55→19:35)
[2019-11-06] MEDS: SOLU-MEDROL 125 MG IVP SCH ×3 (05:53→20:53)
[2019-11-06] MEDS: PROTONIX PO SCH (05:54)
[2019-11-06] MEDS: LEVAQUIN PO SCH (05:54)
[2019-11-06] MEDS: MUCINEX PO SCH ×2 (07:59→20:45)
[2019-11-06] MEDS: BRIMONIDINE TARTRATE 0.2% OPTH SOL EACHEYE SCH ×2 (07:59→20:45)
[2019-11-06] MEDS: ADVAIR 250-50 DISKUS IH SCH ×2 (07:59→20:45)
[2019-11-06] MEDS: FERROUS SULFATE PO SCH (08:00)
[2019-11-06] MEDS: COREG PO SCH ×2 (08:00→17:03)
[2019-11-06] MEDS: XANAX PO PRN ×2 (12:07→20:45)
[2019-11-06] MEDS: PHENERGAN WITH CODEINE 6.25/10 MG/5 ML PO PRN (14:39)
[2019-11-06] MEDS: COUMADIN PO SCH (17:04)
[2019-11-07] MEDS: PHENERGAN WITH CODEINE 6.25/10 MG/5 ML PO PRN ×2 (00:06→22:19)
[2019-11-07] MEDS: VENTOLIN HFA (PER PUFF-WITH SPACER) IH SCH ×4 (04:54→19:57)
[2019-11-07] MEDS: SOLU-MEDROL 125 MG IVP SCH ×3 (05:29→20:50)
[2019-11-07] MEDS: PROTONIX PO SCH (06:02)
[2019-11-07] MEDS: LEVAQUIN PO SCH (06:02)
[2019-11-07 06:57] LABS: HEMATOCRIT 36.8 % (37.0-47.0)
[2019-11-07] MEDS: ADVAIR 250-50 DISKUS IH SCH ×2 (08:19→20:50)
[2019-11-07] MEDS: BRIMONIDINE TARTRATE 0.2% OPTH SOL EACHEYE SCH ×2 (08:19→20:50)
[2019-11-07] MEDS: MUCINEX PO SCH ×2 (08:20→20:51)
[2019-11-07] MEDS: COREG PO SCH ×2 (08:20→17:28)
[2019-11-07] MEDS: FERROUS SULFATE PO SCH (08:20)
[2019-11-07] MEDS: XANAX PO PRN ×2 (09:27→20:51)
--- NOTE | 2019-11-07 13:04 | DI ---
EXAM: Two views of the chest. History: Follow-up pneumonia Comparison: Chest radiograph 11/01/2019 Findings: Heart size is normal. Right apical scarring is stable. Resolved right lower lobe consoli dation. No developing opacities. No pleural fluid and no pneumothorax. Chronic obstructive pulmona ry disease. Atherosclerotic vascular calcifications. No acute osseous abnormalities. Impression: 1. Resolved right lower lobe pneumonia. 2. Chronic obstructive pulmonary disease
[2019-11-07] MEDS: COUMADIN PO SCH (17:28)
[2019-11-08 04:48] LABS: HEMATOCRIT 35.9 % (37.0-47.0)
[2019-11-08] MEDS: VENTOLIN HFA (PER PUFF-WITH SPACER) IH SCH ×4 (04:50→19:32)
[2019-11-08] MEDS: LEVAQUIN PO SCH (05:35)
[2019-11-08] MEDS: PROTONIX PO SCH (05:35)
[2019-11-08] MEDS: SOLU-MEDROL 125 MG IVP SCH (05:36)
--- NOTE | 2019-11-08 09:24 | PCM.PROG ---
Attending Provider: ATTENDING PROVIDER: Dr. RAISA RASCON This patient is seen with Brooke Wesley, Nurse Practitioner. DATE OF SERVICE: 11/08/19 SUBJECTIVE: This 79 year old /WHITE F was hospitalized 11/01/19. The patient is resting comfortably in bed. She has been up in the room. She continues to c omplain of mild shortness of breath. The patient continue to have cough with bright yellow sputum. She has had a good appetite. We will continue working with PT. We will continue on Levaquin. We will discontinue the Solu-medrol IV and start the patient on Prednisone 10mg BID. REVIEW OF SYSTEMS: CONSTITUTIONAL: No night sweats. No fatigue, malaise, lethargy. No fever or chills. HEENT: Eyes: No visual changes. No eye pain. No eye discharge. ENT: No runny nose. No epistaxis. No sinus pain. No odynophagia. No congestion. RESPIRATORY: Cough, no congestion. No hemoptysis. Shortness of breath. CARDIOVASCULAR: No angina symptoms. No CHF symptoms. No atypical chest pain for CAD. No palpitations. No orthopnea.. GASTROINTESTINAL: No abdominal pain. No nausea or vomiting. No diarrhea or constipation. No hematemesis. No hematochezia. GENITOURINARY: No urgency. No frequency. No dysuria. No hematuria. No obstructive symptoms. No discharge. No pain. No significant abnormal bleeding. MUSCULOSKELETAL: No musculoskeletal pain; no joint swelling. Weakness. NEUROLOGICAL: Awake, alert, oriented to time, place and person. No headache. No neck pain. No syncope. No seizures. No dizziness. PSYCHIATRIC: Not anxious. No depression. No suicidal thoughts. No homicidal thoughts. SKIN: No rash. No lesions. No wounds. ENDOCRINE: No unexplained weight loss. No weight gain. HEMATOLOGIC/LYMPHATIC: No anemia. No purpura. No petechiae. No prolonged or excessive bleeding. No palpable lymph nodes. PHYSICAL EXAMINATION: GENERAL: The patient is awake, alert and oriented, sitting in bed in no distress. VITAL SIGNS: Temperature 98.4 F, Pulse 82, Respiratory Rate 20, BP 136/74, Pulse Ox 97% HEENT: Head normocephalic, atraumatic. Eyes: Extraocular muscles are intact. Pupils are equal, round and reactive to light and accommodation. Ears: No lesions. Nose appeared normal. Throat: No exudate or erythema. NECK: Supple. No JVD, no carotid bruit. No lymphadenopathy or thyromegaly. LUNGS: Diminished breath sounds with mild bilateral expiratory wheezing. Clear to auscultation. Percussion note normal. Chest symmetrical. HEART: S1, S2, no S3. No murmurs. No cyanosis or clubbing. No ascites. Pulses: Dorsalis pedis and posterior tibial pulses +1 to +2 both sides. ABDOMEN: Soft. Non-tender. Bowel sounds active. No CVA tenderness. No mass felt. EXTREMITIES: No edema. Full range of motion of all extremities, equal. NEUROLOGIC: No focal deficit. Cranial nerves II through XII are grossly intact. No headache, no double vision or headache. SKIN: Not dry. Intact. Turgor-normal. LYMPHATIC: No palpable lymph nodes/no lymphedema. MUSCULOSKELETAL: Normal joints with no swelling. Muscle tone is normal. LAB REVIEW: 11/08/19 04:34 11/08/19 04:34 11/08/19 04:34: Sodium 133.8 L, Potassium 4.28, Chloride 98.9, Carbon Dioxide 33.2 H, Anion Gap 5.98, BUN 31.1 H, Creatinine 0.83, Estimated GFR (MDRD) 67.00, BUN/Creatinine Ratio 37.46, Glucose 133.5 H, Calcium 9.50, Total Bilirubin 0.15 L, AST 26.4, ALT 23.4, Alkaline Phosphatase 92.2, Total Protein 5.61 L, Albumin 2.80 L, Globulin 2.81, Albumin/Globulin Ratio 0.99 11/08/19 04:34: PT 21.3 H, INR 2.27 11/08/19 04:34: WBC 14.17 H, RBC 4.07 L, Hgb 11.4 L, Hct 35.9 L, MCV 88.2, MCH 28.0, MCHC 31.8, RDW Coeff of Elie 15.7 H, Plt Count 339, Immature Gran % (Auto) 1.8, Neut % (Auto) 90.4 H, Lymph % (Auto) 4.8 L, Rush % (Auto) 2.9, Eos % (Auto) 0.0, Baso % (Auto) 0.1, Neut # (Auto) 12.8 H, Lymph # (Auto) 0.7, Rush # (Auto) 0.4, Eos # (Auto) 0.0, Baso # (Auto) 0.0, Immature Gran # (Auto) 0.3 11/07/19 06:38: PT 18.2 H, INR 1.93 ASSESSMENT: Please see below. 1. Right lower lobe pneumonia sputum positive for pseudomonas 2. Severe COPD 3. Anemia 4. Hypotension 5. Known scattered pulmonary nodules 6. Former smoker 7. History of PE 8. Hyper-coagulation PLAN: 1. Continue Levaquin 2. Discontinue Solu-Medrol 3. Start Prednisone 10mg BID 4. Continue PT 5. CBC and CMP, PT and INR in the morning. Plan and coordination of the patient's care discussed in the presence of Software Licensing Executive and nurse. SCRIBED BY: LEE RODRIGUEZ Station Cook scribed while in presence of service performed by Dr. Rascon/Brooke Wesley APRN on 11/08/19 ([id number])
[2019-11-08] MEDS: FERROUS SULFATE PO SCH (09:39)
[2019-11-08] MEDS: COREG PO SCH ×2 (09:39→17:41)
[2019-11-08] MEDS: XANAX PO PRN ×2 (09:39→20:33)
[2019-11-08] MEDS: MUCINEX PO SCH ×2 (09:40→20:27)
[2019-11-08] MEDS: ADVAIR 250-50 DISKUS IH SCH ×2 (09:40→20:28)
[2019-11-08] MEDS: BRIMONIDINE TARTRATE 0.2% OPTH SOL EACHEYE SCH ×2 (09:40→20:28)
--- NOTE | 2019-11-08 13:15 | PN ---
DATE OF SERVICE: 11/07/2019 SUBJECTIVE: 79 year old white female hospitalized with pneumonia. The patient's condition is steadily improving and she is feeling a lot better. REVIEW OF SYSTEMS: CONSTITUTIONAL: No night sweats. No fatigue, malaise, lethargy. No fever or chills. HEENT: Eyes: No visual changes. No eye pain. No eye discharge. ENT: No runny nose. No epistaxis. No sinus pain. No sore throat. No odynophagia. No congestion. RESPIRATORY: Mild cough and congestion. No hemoptysis. No shortness of breath. CARDIOVASCULAR: No angina symptoms. No CHF symptoms. No atypical chest pain for CAD. No palpitations. No PND. No orthopnea. GASTROINTESTINAL: No abdominal pain. No nausea or vomiting. No diarrhea or constipation. No hematemesis. No hematochezia. GENITOURINARY: No urgency. No frequency. No dysuria. No hematuria. No obstructive symptoms. No discharge. No pain. No significant abnormal bleeding. MUSCULOSKELETAL: No musculoskeletal pain; no joint swelling. NEUROLOGICAL: No headache. No neck pain. No syncope. No seizures. No dizziness. PSYCHIATRIC: Not anxious. No depression. No suicidal thoughts. No homicidal thoughts. SKIN: No rash. No lesions. No wounds. ENDOCRINE: No unexplained weight loss. No weight gain. HEMATOLOGIC/LYMPHATIC: No anemia. No purpura. No petechiae. No prolonged or excessive bleeding. No palpable lymph nodes. PHYSICAL EXAMINATION: GENERAL: The patient is , lying/sitting in bed in no distress. VITAL SIGNS: Temperature 97.7, pulse 60, respiratory rate 16, blood pressure 140/70 and pulse ox 97%. HEENT: Head normocephalic, atraumatic. Eyes: Extraocular muscles are intact. Pupils are equal, round and reactive to light and accommodation. Ears: No lesions. Nose appeared normal. Throat: No exudate or erythema. NECK: Supple. No JVD, no carotid bruit. No lymphadenopathy or thyromegaly. LUNGS: Decreased breath sounds with mild wheeze. Percussion note normal. Chest symmetrical. HEART: S1, S2, no S3. No murmurs. No cyanosis or clubbing. No ascites. Pulses: Dorsalis pedis and posterior tibial pulses +1 to +2 bilaterally. ABDOMEN: Soft. Nontender. Bowel sounds active. No CVA tenderness. No mass felt. EXTREMITIES: No edema. Full range of motion of all extremities, equal. NEUROLOGIC: No focal deficit. Cranial nerves II through XII are grossly intact. No headache, no double vision or headache. SKIN: Not dry. Intact. Turgor - normal. LYMPHATIC: No palpable lymph nodes/no lymphedema. MUSCULOSKELETAL: Normal joints with no swelling. Muscle tone is normal. LABS: Hgb 11.7, CHt 36, WBC 13,000 normal differential, creatinine 0.8, BUN 31, potassium 3.9. ASSESSMENT: 1. Pneumonia, clinically seems to be resolving PLAN: 1. Continue antibiotics and steroids. TIME SPENT: More than 30 minutes. Plan and coordination of the patient's care discussed in the presence of nurse. ANETA
--- NOTE | 2019-11-08 13:35 | PN ---
DATE OF SERVICE: 11/06/2019 SUBJECTIVE: 79 year old white female hospitalized with pneumonia. The patient's condition has steadily improved. She is up and about and her appetite has improved. REVIEW OF SYSTEMS: CONSTITUTIONAL: No night sweats. No fatigue, malaise, lethargy. No fever or chills. HEENT: Eyes: No visual changes. No eye pain. No eye discharge. ENT: No runny nose. No epistaxis. No sinus pain. No sore throat. No odynophagia. No congestion. RESPIRATORY: Mild cough with congestion. No hemoptysis. Weakness and shortness of breath on exertion but much improved. CARDIOVASCULAR: No angina symptoms. No CHF symptoms. No atypical chest pain for CAD. No palpitations. No PND. No orthopnea. GASTROINTESTINAL: No abdominal pain. No nausea or vomiting. No diarrhea or constipation. No hematemesis. No hematochezia. GENITOURINARY: No urgency. No frequency. No dysuria. No hematuria. No obstructive symptoms. No discharge. No pain. No significant abnormal bleeding. MUSCULOSKELETAL: No musculoskeletal pain; no joint swelling. NEUROLOGICAL: No headache. No neck pain. No syncope. No seizures. No dizziness. PSYCHIATRIC: Not anxious. No depression. No suicidal thoughts. No homicidal thoughts. SKIN: No rash. No lesions. No wounds. ENDOCRINE: No unexplained weight loss. No weight gain. HEMATOLOGIC/LYMPHATIC: No anemia. No purpura. No petechiae. No prolonged or excessive bleeding. No palpable lymph nodes. PHYSICAL EXAMINATION: VITAL SIGNS: Temperature 97.9, pulse 67, respiratory rate 20, blood pressure 150/60 and pulse ox 92%. HEENT: Head normocephalic, atraumatic. Eyes: Extraocular muscles are intact. Pupils are equal, round and reactive to light and accommodation. Ears: No lesions. Nose appeared normal. Throat: No exudate or erythema. NECK: Supple. No JVD, no carotid bruit. No lymphadenopathy or thyromegaly. LUNGS: Decreased breath sounds but clear to auscultation. Percussion note normal. Chest symmetrical. HEART: S1, S2, no S3. No murmurs. No cyanosis or clubbing. No ascites. Pulses: Dorsalis pedis and posterior tibial pulses +1 to +2 bilaterally. ABDOMEN: Soft. Nontender. Bowel sounds active. No CVA tenderness. No mass felt. EXTREMITIES: No edema. Full range of motion of all extremities, equal. NEUROLOGIC: No focal deficit. Cranial nerves II through XII are grossly intact. No headache, no double vision or headache. SKIN: Not dry. Intact. Turgor - normal. LYMPHATIC: No palpable lymph nodes/no lymphedema. MUSCULOSKELETAL: Normal joints with no swelling. Muscle tone is normal. LABS: Hgb 11.8, hct 37, WBC 14,000 normal differential, creatinine 0.8, BUN 27, potassium 4.3. ASSESSMENT: 1. Pneumonia seems to be resolving. PLAN: 1. Continue Levaquin 2. Continue Steroids 3. Continue to encourage the patient to eat 4. Advised the patient to join pulmonary rehab. Pulmonary rehab discussed in detail. CONDITION: Stable. TIME SPENT: More than 30 minutes. Plan and coordination of the patient's care discussed in the presence of nurse. ANETA
[2019-11-08] MEDS: PREDNISONE PO SCH (17:41)
[2019-11-08] MEDS: COUMADIN PO SCH (17:42)
[2019-11-08] MEDS: PHENERGAN WITH CODEINE 6.25/10 MG/5 ML PO PRN (22:41)
[2019-11-09] MEDS: VENTOLIN HFA (PER PUFF-WITH SPACER) IH SCH ×2 (05:06→09:42)
[2019-11-09] MEDS: PROTONIX PO SCH (05:39)
[2019-11-09] MEDS: LEVAQUIN PO SCH (05:39)
[2019-11-09 05:43] VITALS: BP 158/66; TEMP 97.6
[2019-11-09] MEDS: COREG PO SCH (09:19)
[2019-11-09] MEDS: MUCINEX PO SCH (09:19)
[2019-11-09] MEDS: ADVAIR 250-50 DISKUS IH SCH (09:19)
[2019-11-09] MEDS: PREDNISONE PO SCH (09:19)
[2019-11-09] MEDS: FERROUS SULFATE PO SCH (09:19)
[2019-11-09] MEDS: XANAX PO PRN (09:19)
[2019-11-09] MEDS: BRIMONIDINE TARTRATE 0.2% OPTH SOL EACHEYE SCH (09:20)
--- NOTE | 2019-11-09 10:02 | PCM.PROG ---
Attending Provider: ATTENDING PROVIDER: Dr. RAISA RASCON This patient is seen with Brooke Wesley, Nurse Practitioner. DATE OF SERVICE: 11/09/19 SUBJECTIVE: This 79 year old /WHITE F was hospitalized 11/01/19. The patient is resting comfortably in bed. Appears to be less short of breath. Continue to have cough with productive sputum. We will discharge hoem with Levaquin 500mg PO for three days. Instructed to use her nebulizer four times a day. REVIEW OF SYSTEMS: CONSTITUTIONAL: No night sweats. No fatigue, malaise, lethargy. No fever or chills. Weakness. HEENT: Eyes: No visual changes. No eye pain. No eye discharge. ENT: No runny nose. No epistaxis. No sinus pain. No odynophagia. No congestion. RESPIRATORY: Cough, no congestion. No hemoptysis. Improving shortness of breath. CARDIOVASCULAR: No angina symptoms. No CHF symptoms. No atypical chest pain for CAD. No palpitations. No orthopnea.. GASTROINTESTINAL: No abdominal pain. No nausea or vomiting. No diarrhea or constipation. No hematemesis. No hematochezia. GENITOURINARY: No urgency. No frequency. No dysuria. No hematuria. No obstructive symptoms. No discharge. No pain. No significant abnormal bleeding. MUSCULOSKELETAL: No musculoskeletal pain; no joint swelling. NEUROLOGICAL: Awake, alert, oriented to time, place and person. No headache. No neck pain. No syncope. No seizures. No dizziness. PSYCHIATRIC: Not anxious. No depression. No suicidal thoughts. No homicidal thoughts. SKIN: No rash. No lesions. No wounds. ENDOCRINE: No unexplained weight loss. No weight gain. HEMATOLOGIC/LYMPHATIC: No anemia. No purpura. No petechiae. No prolonged or excessive bleeding. No palpable lymph nodes. PHYSICAL EXAMINATION: GENERAL: The patient is awake, alert and oriented, sitting in bed in no distress. VITAL SIGNS: Temperature 97.6 F, Pulse 67, Respiratory Rate 20, BP 158/66, Pulse Ox 98% HEENT: Head normocephalic, atraumatic. Eyes: Extraocular muscles are intact. Pupils are equal, round and reactive to light and accommodation. Ears: No lesions. Nose appeared normal. Throat: No exudate or erythema. NECK: Supple. No JVD, no carotid bruit. No lymphadenopathy or thyromegaly. LUNGS: Diminished breath sounds with bilateral expiratory wheezing. Clear to auscultation. Percussion note normal. Chest symmetrical. HEART: S1, S2, no S3. No murmurs. No cyanosis or clubbing. No ascites. Pulses: Dorsalis pedis and posterior tibial pulses +1 to +2 both sides. ABDOMEN: Soft. Non-tender. Bowel sounds active. No CVA tenderness. No mass felt. EXTREMITIES: No edema. Full range of motion of all extremities, equal. NEUROLOGIC: No focal deficit. Cranial nerves II through XII are grossly intact. No headache, no double vision or headache. SKIN: Not dry. Intact. Turgor-normal. LYMPHATIC: No palpable lymph nodes/no lymphedema. MUSCULOSKELETAL: Normal joints with no swelling. Muscle tone is normal. LAB REVIEW: 11/09/19 05:15 11/09/19 05:15 11/09/19 05:15: PT 18.8 H, INR 2.00 11/09/19 05:15: Sodium 136.4, Potassium 4.08, Chloride 96.5 L, Carbon Dioxide 38.7 H, Anion Gap 5.28, BUN 29.5 H, Creatinine 0.90, Estimated GFR (MDRD) 61.00, BUN/Creatinine Ratio 32.77, Glucose 84.3, Calcium 10.23 H, Total Bilirubin 0.30, AST 35.2, ALT 31.0, Alkaline Phosphatase 114.7, Total Protein 6.97, Albumin 3.55, Globulin 3.42, Albumin/Globulin Ratio 1.03 11/09/19 05:15: WBC 16.17 H, RBC 4.94, Hgb 13.7, Hct 44.0 D, MCV 89.1, MCH 27.7, MCHC 31.1 L, RDW Coeff of Elie 15.9 H, Plt Count 388, Immature Gran % (Auto) 1.7, Neut % (Auto) 86.4 H, Lymph % (Auto) 5.3 L, Brown % (Auto) 6.4, Eos % (Auto) 0.0, Baso % (Auto) 0.2, Neut # (Auto) 14.0 H, Lymph # (Auto) 0.9, Brown # (Auto) 1.0, Eos # (Auto) 0.0, Baso # (Auto) 0.0, Immature Gran # (Auto) 0.3 ASSESSMENT: Please see below. 1. Right lower lobe pneumonia sputum positive for pseudomonas 2. Severe COPD 3. Anemia 4. Hypotension 5. Known scattered pulmonary nodules 6. Former smoker 7. History of PE 8. Hyper-coagulation PLAN: 1. Prednisone 10mg twice a day for three days, daily for three days then maintenance 2. Levaquin 500mg PO three more days 3. Discharge home today 4. Followup in the office on Friday 5. NEBS four times a day 6. Fall precautions. Plan and coordination of the patient's care discussed in the presence of Environmental Aid and nurse. SCRIBED BY: LEE RODRIGUEZ Revenue Cycle Consultant scribed while in presence of service performed by Dr. Rascon/Brooke Wesley APRN on 11/09/19 ([id number])
--- NOTE | 2019-11-09 12:11 | CM.DICTOOL ---
ADMISSION: 11/01/19 15:52 DISCHARGE: October DATE OF SERVICE: 11/09/19 FINAL DIAGNOSIS RT LOWER LOBE PNEUMONIA- SPUTUM POSITIVE FOR PSEUDOMONAS SEVERE COPD, OXYGEN DEPENDENT ANEMIA HYPOTENSION KNOWN SCATTERED PULMONARY NODULES HYPER-COAGULATION - RESOLVED HX: SEVERE COPD, OXYGEN DEPENDENT ANEMIA ACUTE RESPIRATORY FAILURE/ HAS CHRONIC RESPIRATORY FAILURE RECURRENT PNEUMONIA PULMONARY FIBROSIS PULMONARY NODULE- FOLLOWED BY DR. OLIVAS GENERALIZED ANXIETY DVT AND PE - INTERMEDIATE COUMADIN POLYARTHRITIS GERD OSTEOPENIA TOBACCO USE- QUIT SMOKING GREATER THAN TEN YEARS AGO DEGENERATIVE DISK DISEASE LOW BMI HYPERGLYCEMIA OSTEOARTHRITIS, RT SHOULDER GOUT SURGICAL HISTORY: STATUS POST HYSTERECTOMY STATUS POST APPENDECTOMY LT CATARACT EXTRACTION LAST VITALS Temp Pulse Resp BP Pulse Ox 97.6 F 67 20 158/66 H 96 11/09/19 05:42 11/09/19 05:42 11/09/19 05:42 11/09/19 05:42 11/09/19 09:40 TAKE THESE MEDICATIONS AT HOME Alprazolam (Xanax) 0.25 mg PO TID PRN PRN Reason: Anxiety Last Admin: 11/09/19 09:19 Dose: 0.25 mg Brimonidine Tartrate (Brimonidine Tartrate 0.2% Opth [place]) 1 drop EACHEYE Q12HR [facility] Last Admin: 11/09/19 09:20 Dose: 1 drop Carvedilol (Coreg) 3.125 mg PO BIDWM [facility] Last Admin: 11/09/19 09:19 Dose: 3.125 mg Ferrous Sulfate (Ferrous Sulfate) 324 mg PO DAILY [facility] Last Admin: 11/09/19 09:19 Dose: 324 mg Guaifenesin (Mucinex) 600 mg PO Q12HR [facility] --- (NEW) Last Admin: 11/09/19 09:19 Dose: 600 mg Levofloxacin (Levaquin) 500 mg PO QDAC [facility] X 3 MORE DAYS Stop: 11/11/19 09:59 Last Admin: 11/09/19 05:39 Dose: 500 mg Pantoprazole Sodium (Protonix) 40 mg PO QDAC [facility] Last Admin: 11/09/19 05:39 Dose: 40 mg Promethazine HCl/Codeine (Phenergan With Codeine 6.25/10 Mg/5 Ml) 10 ml PO Q6H PRN PRN Reason: Cough Last Admin: 11/08/19 22:41 Dose: 10 ml Fluticasone/Salmeterol (Advair 250-50 Diskus) 1 puff IH BID [facility] Last Admin: 11/09/19 09:19 Dose: 1 puff Warfarin Sodium (Coumadin) 3 mg PO QPM [facility] Last Admin: 11/08/19 17:42 Dose: 3 mg PREDNISONE 10 MG BID X 4 DAYS, 10 MG DAILY X 3 DAYS THEN RETURN TO 5 MG DAILY, SHE IS STEROID DEPENDENT DUONEB 1 VIAL PER NEBULIZER QID - ( NEW) COMBIVENT RESPIMAT 4 GRAMS INHALATION QID ( HOME MED) ALLERGIES ciprofloxacin [From Cipro] Adverse Reaction (Verified 11/01/19 10:58) hydrocodone Adverse Reaction (Verified 11/01/19 10:58) Abdominal Pain gi cocktail Adverse Reaction (Uncoded 06/01/19 14:27) DISCONTINUED MEDICATIONS ALBUTEROL NEBULIZER QID` POTASSIUM CHLORIDE 10 MEQ BID PO NEW PRESCRIPTIONS: LEVAQUIN 500 mg PO QDAC OLVIN X 3 MORE DAYS PREDNISONE 10 MG BID X 4 DAYS, 10 MG DAILY X 3 DAYS THEN RETURN TO 5 MG DAILY, SHE IS STEROID DEPENDENT DUONEB 1 VIAL PER NEBULIZER QID ( CALLED INTO [facility] 2 DRUGS) COMBIVENT RESPIMAT 4 GRAMS INHALATION QID ( HOME MED) MUCINEX 600 MG PO BID SMOKING: NON- APPLICABLE DISEASE SPECIFIC EDUCATION: PNEUMONIA DUONEB LEVAQUIN COUMADIN PREDNISONE MUCINEX COVID LAB REVIEW: 11/09/19 05:15 11/09/19 05:15 11/09/19 05:15: PT 18.8 H, INR 2.00 11/09/19 05:15: Sodium 136.4, Potassium 4.08, Chloride 96.5 L, Carbon Dioxide 38.7 H, Anion Gap 5.28, BUN 29.5 H, Creatinine 0.90, Estimated GFR (MDRD) 61.00, BUN/Creatinine Ratio 32.77, Glucose 84.3, Calcium 10.23 H, Total Bilirubin 0.30, AST 35.2, ALT 31.0, Alkaline Phosphatase 114.7, Total Protein 6.97, Albumin 3.55, Globulin 3.42, Albumin/Globulin Ratio 1.03 11/09/19 05:15: WBC 16.17 H, RBC 4.94, Hgb 13.7, Hct 44.0 D, MCV 89.1, MCH 27.7, MCHC 31.1 L, RDW Coeff of Elie 15.9 H, Plt Count 388, Immature Gran % (Auto) 1.7, Neut % (Auto) 86.4 H, Lymph % (Auto) 5.3 L, [place] % (Auto) 6.4, Eos % (Auto) 0.0, Baso % (Auto) 0.2, Neut # (Auto) 14.0 H, Lymph # (Auto) 0.9, [place] # (Auto) 1.0, Eos # (Auto) 0.0, Baso # (Auto) 0.0, Immature Gran # (Auto) 0.3 PLAN: DISCHARGE HOME TODAY WITH FAMILY, October ACTIVITY: WITH WITH ROLLATOR IN HOME, STAY IN DOORS AND AWAY FROM CROWDS UP THROUGHOUT THE DAY WITH FREQUENT REST PERIODS CONTINUE OXYGEN AT 2 L/M PER NASAL CANNULA CONTINUOS, AND PROPER PRECAUTIONS DIET: REGULAR WITH ADEQUATE FLUIDS FOLLOW UP: SEE DR RASCON/ JAZZMINE CHEW APRN / TERESA LYONS APRN IN THE OFFICE ON FRIDAY , October @ 915 AM CALL OFFICE IF ANY CONCERNS [phone] DR. OLIVAS, ACID PAINTER, SCHEDULED FOR JAN 12, 2020 @ 0900 ( CONTACTED CHESTER AT THE OFFICE) CODE STATUS : DO NOT RESUSCITATE MRS STEINBERG IS ALERT AND ORIENTED X 4. PLEASANT AND TALKATIVE. COUGHS AT TIMES AND YELLOW WITH PINK TINGE AT TIMES. SHE USES OXYGEN AT ALL TIMES.HER SKIN REMAINS INTACT. SHE DOES HAVE EXTREMELY DRY SKIN AND REQUIRES LOTION FREQUENTLY NUTRITIONAL AND FLUID INTAKE GOOD. SHE IS UP WITH A ROLLATOR. SHE HAD PHYSICAL THERAPY AND PROGRESSED WELL AND MRS STEINBERG DID NOT WANT FURTHER THERAPY. LIVES AT HOME WITH HER . HER DTR VISITS FREQUENTLY AND IS ACTIVE IN HER CARE. CONTINENT OF BOWEL AND BLADDER. HER LAST BM 11/07/2019. MD JAZZMINE SMILEY APRN ALYCE HANNAN, APRN
--- NOTE | 2019-11-09 13:37 | PN ---
11/01/2019: Level 5 11/02/2019: Intermediate 11/03/2019: Intermediate 11/04/2019: Intermediate 11/05/2019: Intermediate 11/06/2019: Intermediate 11/07/2019: Intermediate 11/08/2019: Intermediate 11/09/2019: D as in discharge MTDD
--- NOTE | 2019-11-09 13:37 | PN ---
DATE OF SERVICE: 11/09/2019 SUBJECTIVE: The patient was seen and examined with the Nurse Practitioner. The patient's condition has improved. She is up and about. PHYSICAL EXAMINATION: HEENT: Head normocephalic, atraumatic. Eyes: Extraocular muscles are intact. Pupils are equal, round and reactive to light and accommodation. Ears: No lesions. Nose appeared normal. Throat: No exudate or erythema. NECK: Supple. No JVD, no carotid bruit. No lymphadenopathy or thyromegaly. LUNGS: Decreased breath sounds. Good air entry. Mild wheeze. Clear to auscultation. Percussion note normal. Chest symmetrical. HEART: S1, S2, no S3. No murmurs. No cyanosis or clubbing. No ascites. Pulses: Dorsalis pedis and posterior tibial pulses +1 to +2 bilaterally. ABDOMEN: Soft. Nontender. Bowel sounds active. No CVA tenderness. No mass felt. EXTREMITIES: No edema. Full range of motion of all extremities, equal. NEUROLOGIC: No focal deficit. Cranial nerves II through XII are grossly intact. No headache, no double vision or headache. SKIN: Not dry. Intact. Turgor - normal. LYMPHATIC: No palpable lymph nodes/no lymphedema. MUSCULOSKELETAL: Normal joints with no swelling. Muscle tone is normal. ASSESSMENT: 1. Pneumonia by chest x-ray resolved PLAN: 1. The patient is going to be discharged home on antibiotics TIME SPENT: More than 30 minutes. Plan and coordination of the patient's care discussed in the presence of nurse. ANETA
--- NOTE | 2019-11-09 13:49 | PN ---
DATE OF SERVICE: 11/08/2019 SUBJECTIVE: The patient was seen and examined with the Nurse Practitioner. The patient's x- ray looks much better and the pneumonia seems to have resolved. Clinically the patient is better. She is up and about. TIME SPENT: More than 30 minutes. Plan and coordination of the patient's care discussed in the presence of nurse. NAETA
--- NOTE | 2019-11-09 14:29 | PN ---
DATE OF SERVICE: 11/05/2019 SUBJECTIVE: The patient was seen and examined with Nurse Practitioner. The patient's COVID is negative. She is a Levaquin and she is improving. The cough is much less. Loose and productive. Afebrile. Appetite is improving. TIME SPENT: More than 30 minutes. Plan and coordination of the patient's care discussed in the presence of nurse. ANETA
--- NOTE | 2019-11-10 09:43 | DS ---
DATE OF SERVICE: 11/09/2019 FINAL DIAGNOSIS: RT LOWER LOBE PNEUMONIA- SPUTUM POSITIVE FOR PSEUDOMONAS SEVERE COPD, OXYGEN DEPENDENT ANEMIA HYPOTENSION KNOWN SCATTERED PULMONARY NODULES HYPER-COAGULATION - RESOLVED HISTORY: SEVERE COPD, OXYGEN DEPENDENT ANEMIA ACUTE RESPIRATORY FAILURE/ HAS CHRONIC RESPIRATORY FAILURE RECURRENT PNEUMONIA PULMONARY FIBROSIS PULMONARY NODULE- FOLLOWED BY DR. 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 CONTINUE OXYGEN AT 2 L/M PER NASAL CANNULA CONTINUOS, AND PROPER PRECAUTIONS. MD FOLLOW UP: SEE DR RASCON/ JAZZMINE CHEW APRN / TERESA LYONS APRN IN THE OFFICE ON Friday @ 915 AM. CALL OFFICE IF ANY CONCERNS [phone]. DR. OLIVAS, ENGINE REPAIRER SERVICE, SCHEDULED FOR JAN 12, 2020 @ 0900 ( CONTACTED CHESTER AT THE OFFICE). CODE STATUS : DO NOT RESUSCITATE TAKE THESE MEDICATIONS AT HOME: Alprazolam (Xanax) 0.25 mg PO TID PRN PRN Reason: Anxiety Last Admin: 11/09/19 09:19 Dose: 0.25 mg Brimonidine Tartrate (Brimonidine Tartrate 0.2% Opth [place]) 1 drop EACHEYE Q12HR [facility] Last Admin: 11/09/19 09:20 Dose: 1 drop Carvedilol (Coreg) 3.125 mg PO BIDWM [facility] Last Admin: 11/09/19 09:19 Dose: 3.125 mg Ferrous Sulfate (Ferrous Sulfate) 324 mg PO DAILY [facility] Last Admin: 11/09/19 09:19 Dose: 324 mg Guaifenesin (Mucinex) 600 mg PO Q12HR [facility] --- (NEW) Last Admin: 11/09/19 09:19 Dose: 600 mg Levofloxacin (Levaquin) 500 mg PO QDAC [facility] X 3 MORE DAYS Stop: 11/11/19 09:59 Last Admin: 11/09/19 05:39 Dose: 500 mg Pantoprazole Sodium (Protonix) 40 mg PO QDAC [facility] Last Admin: 11/09/19 05:39 Dose: 40 mg Promethazine HCl/Codeine (Phenergan With Codeine 6.25/10 Mg/5 Ml) 10 ml PO Q6H PRN PRN Reason: Cough Last Admin: 11/08/19 22:41 Dose: 10 ml Fluticasone/Salmeterol (Advair 250-50 Diskus) 1 puff IH BID [facility] Last Admin: 11/09/19 09:19 Dose: 1 puff Warfarin Sodium (Coumadin) 3 mg PO QPM [facility] Last Admin: 11/08/19 17:42 Dose: 3 mg PREDNISONE 10 MG BID X 4 DAYS, 10 MG DAILY X 3 DAYS THEN RETURN TO 5 MG DAILY, SHE IS STEROID DEPENDENT DUONEB 1 VIAL PER NEBULIZER QID - ( NEW) COMBIVENT RESPIMAT 4 GRAMS INHALATION QID ( HOME MED) ALLERGIES: ciprofloxacin [From Cipro] Adverse Reaction (Verified 11/01/19 10:58) hydrocodone Adverse Reaction (Verified 11/01/19 10:58) Abdominal Pain GI cocktail Adverse Reaction (Uncoded 06/01/19 14:27) DISCONTINUED MEDICATIONS: ALBUTEROL NEBULIZER QID POTASSIUM CHLORIDE 10 MEQ BID PO NEW PRESCRIPTIONS: LEVAQUIN 500 mg PO QDAC OLVIN X 3 MORE DAYS PREDNISONE 10 MG BID X 4 DAYS, 10 MG DAILY X 3 DAYS THEN RETURN TO 5 MG DAILY, SHE IS STEROID DEPENDENT DUONEB 1 VIAL PER NEBULIZER QID ( CALLED INTO [facility] 2 DRUGS) COMBIVENT RESPIMAT 4 GRAMS INHALATION QID ( HOME MED) MUCINEX 600 MG PO BID SMOKING: NON- APPLICABLE DISEASE SPECIFIC EDUCATION: PNEUMONIA DUONEB LEVAQUIN COUMADIN PREDNISONE MUCINEX COVID LAB REVIEW: 11/09/19 05:15 11/09/19 05:15 11/09/19 05:15: PT 18.8 H, INR 2.00 11/09/19 05:15: Sodium 136.4, Potassium 4.08, Chloride 96.5 L, Carbon Dioxide 38.7 H, Anion Gap 5.28, BUN 29.5 H, Creatinine 0.90, Estimated GFR (MDRD) 61.00, BUN/Creatinine Ratio 32.77, Glucose 84.3, Calcium 10.23 H, Total Bilirubin 0.30, AST 35.2, ALT 31.0, Alkaline Phosphatase 114.7, Total Protein 6.97, Albumin 3.55, Globulin 3.42, Albumin/Globulin Ratio 1.03 11/09/19 05:15: WBC 16.17 H, RBC 4.94, Hgb 13.7, Hct 44.0 D, MCV 89.1, MCH 27.7, MCHC 31.1 L, RDW Coeff of Elie 15.9 H, Plt Count 388, Immature Gran % (Auto) 1.7, Neut % (Auto) 86.4 H, Lymph % (Auto) 5.3 L, [place] % (Auto) 6.4, Eos % (Auto) 0.0, Baso % (Auto) 0.2, Neut # (Auto) 14.0 H, Lymph # (Auto) 0.9, [place] # (Auto) 1.0, Eos # (Auto) 0.0, Baso # (Auto) 0.0, Immature Gran # (Auto) 0.3 ACTIVITY: WITH WITH ROLLATOR IN HOME, STAY IN DOORS AND AWAY FROM CROWDS UP THROUGHOUT THE DAY WITH FREQUENT REST PERIODS DIET: REGULAR WITH ADEQUATE FLUIDS HOSPITAL COURSE: This is a 79 year ol white female who was hospitalized with right upper lobe pneumonia. She has a history of severe COPD. She is oxygen and steroid dependent. She was initially admitted and place on Rocephin 1 gram IV daily along with Zithromax 500mg IV daily. She was tested for COVID 19 and was negative. She was initially place on isolation until the test came back. She had been at home and had been running fever of up to 101 for several days. She had weaker and more short of breath. Sputum culture was done which came back positive for pseudomonas and was sensitive to Levaquin. She was then started on Levaquin 500mg PO daily. She has been positive for pseudomonas in the past and I do believe she is colonized. We were unable to do nebulizers in hospital at this time. She was continued on her Advair along with albuterol inhaler two puffs QID. All of her home medications were continued. Her INR was elevated initially likely due to initiation of antibiotics and this was help for about two days. It has been within normal limits for the past several days 1.8 today. She will be sent home on 3 days of Levaquin 500mg PO daily for the next three days to continue a 10 day course. She is also to start NEBS treatments at home she already has the machine with DUO NEBS and do them at least three times a day. Again, she is oxygen dependent and she already has oxygen at home. She has done well with the Mucinex in the hospital. It has helped her thin her secretions and be able to expectorate. We will continue the Mucinex at home as well. We are going to send her home on Prednisone 10mg BID for the next 4 days and daily for three days and then she is to resume her maintenance dose of 5mg daily that she gets from Dr. Olivas. Initially she was hypotensive likely from infection. We did have hold her blood pressure medications for the first two days and then this resolved with IV fluids once she started doing better. Overall she is significantly improved. Shortness of breath has improved and her appetite has improved. We are going to send her home in stable condition and she will followup with us in the office later this week. TIME SPENT: More than 60 minutes. ANETA
== END 2019-11-09 12:55 | disposition home or self-care (01) | DRG 190 ==
LOC: ED 10:42 → SCU 15:52 → MEDSURG B 11-04 14:42
PROVIDERS: ADMIT Internal Medicine; ATTEND Internal Medicine
DX: D64.9 Anemia, unspecified; I95.9 Hypotension, unspecified; R91.1 Solitary pulmonary nodule; Z86.711 Personal history of pulmonary embolism; B96.5 Pseudomonas (aeruginosa) (mallei) (pseudomallei) as the cause of diseases classified elsewhere; Z03.818 Encounter for observation for suspected exposure to other biological agents ruled out; R07.9 Chest pain, unspecified; I10 Essential (primary) hypertension; Z79.01 Long term (current) use of anticoagulants; Z99.81 Dependence on supplemental oxygen; J18.9 Pneumonia, unspecified organism; R50.9 Fever, unspecified; R79.1 Abnormal coagulation profile; Z79.899 Other long term (current) drug therapy; Z51.81 Encounter for therapeutic drug level monitoring; J44.0 Chronic obstructive pulmonary disease with (acute) lower respiratory infection; Z87.891 Personal history of nicotine dependence; R06.02 Shortness of breath; D72.829 Elevated white blood cell count, unspecified; J44.1 Chronic obstructive pulmonary disease with (acute) exacerbation

== ENCOUNTER 2019-11-12 10:23 | Inpatient (IN) ==
[2019-11-12] MEDS ORDERED: SOLU-MEDROL 125 MG IVP STA (10:38)
[2019-11-12] MEDS ORDERED: TYLENOL PO STA (10:38)
--- NOTE | 2019-11-12 11:20 | DI ---
EXAM: Chest one view, frontal view only. HISTORY: Cough. COMPARISON: 11/07/2019. FINDINGS: Heart size is normal. Atherosclerotic calcifications present. Calcified granulomatous ch anges noted. There is new bibasilar consolidation, greater on the right. There is blunting of the r ight costophrenic angle with obscuration of the right diaphragm. Right greater the left apical scarr ing is stable. There is no pneumothorax. No acute osseous abnormality identified. IMPRESSION: 1. Right greater left basilar pneumonia. 2. Possible small right pleural effusion.
[2019-11-12 11:22] LABS: HEMATOCRIT 36.6 % (37.0-47.0)
[2019-11-12] MEDS ORDERED: ZOSYN 3.375 GM 3.375 GM in SODIUM CHLORIDE 50 ML IV STA (11:40)
[2019-11-12] MEDS ORDERED: VANCOMYCIN 1 GM in SODIUM CHLORIDE 250 ML IV STA (12:14)
--- NOTE | 2019-11-12 12:31 | ED.PDOC ---
General ED Provider: Dr. SANTO WARD MD Chief Complaint: Shortness of Air Stated Complaint: shortness of breath Time Seen by Physician: 10:30 Mode of Arrival: Wheelchair Information Source: Patient Primary Care Provider: RAISA RASCON Nursing and Triage Documentation Reviewed and Agree: Yes Does patient meet sepsis criteria?: No System Inflammatory Response Syndrome: Not Applicable Sepsis Protocol: For patient's 13 years and over: Temp is 96.8 and below OR 101 and greater Pulse >90 BPM Resp >20/minute Acutely Altered Mental Status Are patient's symptoms suggestive of a new infection, such as: -Pneumonia -Skin, Soft Tissue -Endocarditis -UTI -Bone, Joint Infection -Implantable Device -Acute Abdominal Infection -Wound Infection -Meningitis -Blood Stream Catheter Infection -Unknown Respiratory Complaint Exam Shortness of Air Complaint/Exam Onset/Duration: 2 days Symptoms Are: Still present Timing: Constant Initial Severity: Moderate Current Severity: Moderate Character: Reports Dyspnea at rest Aggravating: Reports Movement Alleviating: Reports None Associated Signs and Symptoms: Reports Cough and Fever Related History: Reports Similar episode History of Healthcare-Acquired Pneumonia: Admit w/in last 30 days Pseudomonas Risk Factors: Reports Chronic Lung Disease, Repeat Antibx in 3 months and Chronic steriod use Home Oxygen Use: Yes Recent Stress Test: No Recent Echo/LV Function: No Respiratory Distress: Mild Stridor Present: No Tracheal Deviation: No Subcutaneous Emphysema: No Accessory Muscle Use: Yes Diminished Breath Sounds: Yes Prolonged Expiratory Phase: Yes Unable to Speak Full Sentences: No Fatigue: No Leg Swelling: No Elizabeth's Sign Present: No Grunting Respirations: No Review of Systems Review Of Systems Constitutional: Reports No symptoms All Other Systems: Reviewed and Negative [facility] Medical History Arrhythmia Asthma Bronchitis COPD (chronic obstructive pulmonary disease) History of hysterectomy Hypertension Pneumonia Pulmonary emboli Family History BROTHER No problems noted. Mother COPD (chronic obstructive pulmonary disease) Other Cancer Social History Smoking and tobacco status: Former smoker Substance use type: does not use History of recent travel: No Female Reproductive History Menstrual Hx Hysterectomy: Yes Hx Tubal Ligation: No Physical Exam Physical Exam Appearance: Reports Well-appearing Ill-appearing: None Pain Distress: None Eyes: Reports BETH, EOMI and Conjunctiva clear ENT: Reports Ears normal, Nose normal and Oropharynx normal Neck: Supple Respiratory: Reports Airway patent and Retractions (mild respiratory distree) Cardiovascular: Reports RRR, Pulses normal and Tachycardia GI/: Reports Soft, Nontender and No masses Musculoskeletal: Reports Normal strength, ROM intact and No edema Skin: Reports Warm, Dry and Normal color Neurological: Reports Sensation intact, Motor intact, Alert and Oriented Psychiatric: Reports Affect appropriate and Mood appropriate Interpretation Radiology Interpretation Radiology Interpretation By: Radiologist Radiology Results: Positive Exam Interpreted: CXR EKG Interpretation Time of EKG #1: 11:22 Rate: Tachy Rhythm: Sinus Ectopy: None [place]: NL ST Segment: Normal Critical Care Note Critical Care Note Total Time (mins): 0 Course Course Hematology/Chemistry: 11/12/19 11:20 11/12/19 11:20 Orders, Labs, Meds: Lab Review 11/12/19 11/12/19 11/12/19 10:35 11:20 11:20 WBC 29.32 H RBC 4.13 L Hgb 11.6 L Hct 36.6 L MCV 88.6 MCH 28.1 MCHC 31.7 L RDW Coeff of Elie 16.2 H Plt Count 307 Immature Gran % (Auto) 0.9 Neut % (Auto) 90.1 H Lymph % (Auto) 2.2 L [place] % (Auto) 6.6 Eos % (Auto) 0.0 Baso % (Auto) 0.2 Neut # (Auto) 26.4 H Lymph # (Auto) 0.7 [place] # (Auto) 1.9 Eos # (Auto) 0.0 Baso # (Auto) 0.1 Immature Gran # (Auto) 0.3 Puncture Site Rr O2 Saturation 90.0 L ABG pH 7.505 H* ABG pCO2 38.4 ABG pO2 53.0 L* ABG HCO3 30.3 H ABG Total CO2 31 H ABG Base Excess 7 H [place] Test + O2 Delivery Device Nc Oxygen Liter Flow 2.00 Sodium 133.2 L Potassium 4.07 Chloride 94.7 L Carbon Dioxide 33.7 H Anion Gap 8.87 BUN 19.1 H Creatinine 0.76 Estimated GFR (MDRD) 74.00 BUN/Creatinine Ratio 25.13 Glucose 84.8 Lactic Acid Calcium 9.87 Total Bilirubin 0.55 AST 37.2 H ALT 39.3 H Alkaline Phosphatase 149.9 H Troponin I 0.024 NT-Pro-B Natriuret Pep 526.000 H Total Protein 6.73 Albumin 3.36 L Globulin 3.37 Albumin/Globulin Ratio 0.99 11/12/19 11:20 WBC RBC Hgb Hct MCV MCH MCHC RDW Coeff of Elie Plt Count Immature Gran % (Auto) Neut % (Auto) Lymph % (Auto) [place] % (Auto) Eos % (Auto) Baso % (Auto) Neut # (Auto) Lymph # (Auto) [place] # (Auto) Eos # (Auto) Baso # (Auto) Immature Gran # (Auto) Puncture Site O2 Saturation ABG pH ABG pCO2 ABG pO2 ABG HCO3 ABG Total CO2 ABG Base Excess [place] Test O2 Delivery Device Oxygen Liter Flow Sodium Potassium Chloride Carbon Dioxide Anion Gap BUN Creatinine Estimated GFR (MDRD) BUN/Creatinine Ratio Glucose Lactic Acid 2.08 Calcium Total Bilirubin AST ALT Alkaline Phosphatase Troponin I NT-Pro-B Natriuret Pep Total Protein Albumin Globulin Albumin/Globulin Ratio Orders Category Date Time Status ADMIT PATIENT INPATIENT .TO SCU (MONITORED BED) ADMISSION 11/12/19 12:30 Active ABG DRAW REQUEST Stat CARDIO 11/12/19 10:36 Completed EKG-(ED ONLY) Stat CARDIO 11/12/19 11:10 Completed TELEMETRY MONITORING TELE CARE 11/12/19 12:30 Active ABG Stat LAB 11/12/19 10:35 Completed BLOOD CULTURE (ED ONLY) Stat LAB 11/12/19 11:02 Received CBC W/ AUTO DIFF Stat LAB 11/12/19 11:20 Completed COMPREHENSIVE METABOLIC PANEL Stat LAB 11/12/19 11:20 Completed COVID19, PCR IDPH Stat LAB 11/12/19 Ordered LACTIC ACID Stat LAB 11/12/19 11:20 Completed NT-PROBNP Stat LAB 11/12/19 11:20 Completed TROPONIN I Stat LAB 11/12/19 11:20 Completed Acetaminophen [Tylenol] MEDS 11/12/19 10:38 Discontinued 1,000 mg PO ONCE STA Methylprednisolone Sod Succ/Pf [Solu-Medrol 125 mg] MEDS 11/12/19 10:38 Discontinued 125 mg IVP ONCE STA Piperacillin Sodium/Tazobactam [Zosyn 3.375 gm] 3.375 MEDS 11/12/19 11:40 Active gm 0.9 % Sodium Chloride [Sodium Chloride] 50 ml IV ONCE Vancomycin 1 gm MEDS 11/12/19 12:14 Active 0.9 % Sodium Chloride [Sodium Chloride] 250 ml IV ONCE CHEST, 1V AP ONLY Stat RADS 11/12/19 10:35 Completed Medications Generic Name Dose Route Start Last Admin Trade Name Freq PRN Reason Stop Dose Admin Piperacillin Sod/Tazobactam 50 mls @ 50 mls/hr 11/12/19 11:40 11/12/19 12:01 Sod 3.375 gm/ Sodium Chloride IV 11/12/19 12:39 50 mls/hr ONCE STA Administration Vancomycin HCl 1 gm/ Sodium 250 mls @ 250 mls/hr 11/12/19 12:14 Chloride IV 11/12/19 13:13 ONCE STA Discontinued Medications Generic Name Dose Route Start Last Admin Trade Name Freq PRN Reason Stop Dose Admin Acetaminophen 1,000 mg 11/12/19 10:38 11/12/19 11:05 Tylenol PO 11/12/19 10:39 1,000 mg ONCE STA Administration Methylprednisolone Sodium Succinate 125 mg 11/12/19 10:38 11/12/19 11:06 Solu-Medrol 125 Mg IVP 11/12/19 10:39 125 mg ONCE STA Administration Vital Signs: Temp Pulse Resp BP Pulse Ox 11/12/19 10:24 100.3 F H 128 H 26 H 127/86 87 L Discharge Plan Discharge Patient Disposition: ADMITTED INPATIENT Discharge Problem: Pneumonia Condition: Stable
[2019-11-12 13:58] VITALS: BMI 16.8
[2019-11-12] MEDS ORDERED: TYLENOL PO PRN (14:47)
[2019-11-12] MEDS: COREG PO SCH (16:44)
[2019-11-12] MEDS: MUCINEX PO SCH ×2 (16:44→21:16)
[2019-11-12] MEDS: PROTONIX PO SCH (16:44)
[2019-11-12] MEDS: COUMADIN PO SCH (16:45)
[2019-11-12] MEDS ORDERED: COMBIVENT RESPIMAT INHALER IH SCH (17:00)
[2019-11-12] MEDS ORDERED: COUMADIN PO SCH (17:00)
[2019-11-12] MEDS: VENTOLIN HFA (PER PUFF-WITH SPACER) IH SCH (19:45)
[2019-11-12] MEDS: ATROVENT HFA INHALER (PER PUFF-WITH SPACER) IH SCH (19:45)
[2019-11-12] MEDS ORDERED: BRIMONIDINE OP SCH (21:00)
[2019-11-12] MEDS: ADVAIR 250-50 DISKUS IH SCH (21:16)
[2019-11-12] MEDS: XANAX PO PRN (21:16)
[2019-11-12] MEDS: SOLU-MEDROL 125 MG IVP SCH (21:16)
[2019-11-12] MEDS: BRIMONIDINE TARTRATE 0.2% OPTH SOL EACHEYE SCH (21:17)
[2019-11-12] MEDS: MERREM 1 GM/50 ML NACL 1 GM/50 ML BAG IV SCH (21:17)
[2019-11-12] MEDS: IPRATROPIUM BROMIDE NAS SCH (21:18)
[2019-11-13] MEDS: ATROVENT HFA INHALER (PER PUFF-WITH SPACER) IH SCH ×4 (04:42→20:51)
[2019-11-13] MEDS: VENTOLIN HFA (PER PUFF-WITH SPACER) IH SCH ×4 (04:42→20:52)
[2019-11-13 05:19] LABS: HEMATOCRIT 35.8 % (37.0-47.0)
[2019-11-13] MEDS: FERROUS SULFATE PO SCH (05:59)
[2019-11-13] MEDS: PROTONIX PO SCH ×2 (05:59→16:53)
[2019-11-13] MEDS: SOLU-MEDROL 125 MG IVP SCH ×3 (05:59→20:38)
[2019-11-13] MEDS ORDERED: VANCOMYCIN 1 GM in SODIUM CHLORIDE 250 ML IV ONE (09:00)
[2019-11-13] MEDS: COREG PO SCH ×2 (09:00→16:53)
[2019-11-13] MEDS: XANAX PO PRN ×2 (09:00→20:38)
[2019-11-13] MEDS: MERREM 1 GM/50 ML NACL 1 GM/50 ML BAG IV SCH ×2 (09:01→20:38)
[2019-11-13] MEDS: MUCINEX PO SCH ×2 (09:01→20:38)
[2019-11-13] MEDS: IPRATROPIUM BROMIDE NAS SCH ×2 (09:01→20:39)
[2019-11-13] MEDS: BRIMONIDINE TARTRATE 0.2% OPTH SOL EACHEYE SCH ×2 (09:09→20:37)
[2019-11-13] MEDS: ADVAIR 250-50 DISKUS IH SCH ×2 (09:09→20:37)
[2019-11-13] MEDS ORDERED: MORPHINE 2 MG/ML SYRINGE IVP PRN (11:13)
[2019-11-13] MEDS: PHENERGAN WITH CODEINE 6.25/10 MG/5 ML PO PRN (12:08)
[2019-11-13] MEDS: COUMADIN PO SCH (16:53)
[2019-11-14 04:42] LABS: HEMATOCRIT 34.8 % (37.0-47.0)
[2019-11-14] MEDS: VENTOLIN HFA (PER PUFF-WITH SPACER) IH SCH ×4 (05:51→19:27)
[2019-11-14] MEDS: ATROVENT HFA INHALER (PER PUFF-WITH SPACER) IH SCH ×4 (05:52→19:28)
[2019-11-14] MEDS: PROTONIX PO SCH ×2 (05:53→17:04)
[2019-11-14] MEDS: SOLU-MEDROL 125 MG IVP SCH ×2 (05:53→14:36)
[2019-11-14] MEDS: FERROUS SULFATE PO SCH (05:53)
[2019-11-14] MEDS: BRIMONIDINE TARTRATE 0.2% OPTH SOL EACHEYE SCH ×2 (09:17→20:55)
[2019-11-14] MEDS: MUCINEX PO SCH ×2 (09:17→20:55)
[2019-11-14] MEDS: COREG PO SCH ×2 (09:17→17:04)
[2019-11-14] MEDS: ADVAIR 250-50 DISKUS IH SCH ×2 (09:17→20:55)
[2019-11-14] MEDS: MERREM 1 GM/50 ML NACL 1 GM/50 ML BAG IV SCH ×2 (09:17→20:55)
[2019-11-14] MEDS: IPRATROPIUM BROMIDE NAS SCH ×2 (09:18→20:56)
[2019-11-14] MEDS: XANAX PO PRN ×2 (09:18→20:55)
[2019-11-15 04:53] LABS: HEMATOCRIT 39.5 % (37.0-47.0)
[2019-11-15] MEDS: ATROVENT HFA INHALER (PER PUFF-WITH SPACER) IH SCH (05:20)
[2019-11-15] MEDS: VENTOLIN HFA (PER PUFF-WITH SPACER) IH SCH (05:20)
[2019-11-15] MEDS: PROTONIX PO SCH ×2 (05:46→16:24)
[2019-11-15] MEDS: FERROUS SULFATE PO SCH (05:47)
[2019-11-15] MEDS: MERREM 1 GM/50 ML NACL 1 GM/50 ML BAG IV SCH ×2 (08:26→20:10)
[2019-11-15] MEDS: MUCINEX PO SCH ×2 (08:30→20:10)
[2019-11-15] MEDS: PREDNISONE PO SCH (08:30)
[2019-11-15] MEDS: BRIMONIDINE TARTRATE 0.2% OPTH SOL EACHEYE SCH ×2 (08:30→20:13)
[2019-11-15] MEDS: COREG PO SCH ×2 (08:30→16:24)
[2019-11-15] MEDS: ADVAIR 250-50 DISKUS IH SCH (08:30)
[2019-11-15] MEDS: IPRATROPIUM BROMIDE NAS SCH ×2 (08:36→20:13)
[2019-11-15] MEDS ORDERED: PULMICORT 1 MG/2 ML NEB STA (08:43)
--- NOTE | 2019-11-15 09:20 | HP ---
DATE OF SERVICE: 11/12/19 HISTORY OF PRESENT ILLNESS: 79-year-old white female who was sent to ER after presenting to our office for a hospital followup. She presented with increased shortness of breath, oxygen saturation was 89%. Her temperature was 99.7 at the office. She was sent to ER for further management. Pulse ox in the ER was 87% with a temperature of 100.3. The patient was recently discharged on 11/09/19 with diagnosis of right lower lobe pneumonia, sputum positive for Pseudomonas, severe COPD and oxygen dependency. During her previous stay she was tested for Covid-19 and had a "not detected" result. However, with symptoms increasing/worsening, she will be retested. Prior to discharge last hospitalization, chest x-ray had shown improvement. However, chest x-ray today in the Emergency Room shows right greater left basilar pneumonia and possible small right pleural effusion. She will be admitted as a PUI for close monitoring of acute respiratory failure, right lower lobe pneumonia and severe COPD. PAST MEDICAL/SURGICAL HISTORY: Severe COPD, oxygen dependent Recent right lower lobe pneumonia Anemia History of acute respiratory failure Chronic respiratory failure History of recurrent pneumonia Pulmonary fibrosis Pulmonary nodule followed by Dr. 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 No night sweats. No malaise, lethargy. No fever or chills. HEENT: Eyes: No visual changes. No eye pain. No eye discharge. ENT: No runny nose. No epistaxis. No sinus pain. No sore throat. No odynophagia. No ear pain. No congestion. RESPIRATORY: Cough. No hemoptysis. Shortness of breath. CARDIOVASCULAR: No angina symptoms. No CHF symptoms. No atypical chest pain for CAD. No palpitations. No PND. No orthopnea. GASTROINTESTINAL: No abdominal pain. No nausea or vomiting. No diarrhea or constipation. No hematemesis. No hematochezia. GENITOURINARY: No urgency. No frequency. No dysuria. No hematuria. No obstructive symptoms. No discharge. No pain. No significant abnormal bleeding. MUSCULOSKELETAL: No musculoskeletal pain. No joint swelling. No arthritis. NEUROLOGICAL: No headache. No neck pain. No syncope. No seizures. No dizziness. PSYCHIATRIC: Not anxious. No depression. No suicidal thoughts. No homicidal thoughts. SKIN: No rash. No lesions. No wounds. ENDOCRINE: No unexplained weight loss. No weight gain. HEMATOLOGIC/LYMPHATIC: No anemia. No purpura. No petechiae. No prolonged or excessive bleeding. No palpable lymph nodes. PERSONAL/FAMILY/SOCIAL HISTORY: The patient lives at home with her . She is oxygen dependent. She quit smoking more than 10 years ago. No alcohol or ilicit drug use. MEDICATIONS: Fluticasone one INH b.i.d. Combivent 4 g INH q.i.d. Ipratropium two spray intranasal b.i.d. Alprazolam 0.25 mg p.o. t.i.d. p.r.n. Carvedilol 3.125 mg p.o. b.i.d. with meal Acetaminophen 650 mg p.o. q.4hr p.r.n. Brimonidine one drop both eyes b.i.d. Pantoprazole 40 mg p.o. b.i.d. Ferrous Sulfate 325 mg p.o. daily Warfarin 4 mg p.o. q.p.m. Guaifenesin 600 mg p.o. q.12h Prednisone 10 mg p.o. b.i.d. 4 days Promethazine-Codeine 6.25-10 mg/5 mL syrup 10 mL p.o. q.6h p.r.n. Ipratropium-Albuterol 0.5 mg-3 mg 3 mL INH q.i.d. ALLERGIES: CIPROFLOXACIN, HYDROCODONE (GI COCKTAIL) PHYSICAL EXAMINATION: VITAL SIGNS: Temperature 100.3, pulse 128, respirations 26, blood pressure 127/86, pulse ox 87%. HEENT: Head normocephalic, atraumatic. Eyes: Extraocular muscles are intact. Pupils are equal, round and reactive to light and accommodation. Ears: No lesions. Nose appeared normal. Throat: No exudate or erythema. NECK: Supple. No JVD, no carotid bruit. No lymphadenopathy or thyromegaly. LUNGS: Diminished breath sounds with bilateral expiratory wheezing. Percussion note normal. Chest symmetrical. HEART: S1, S2, no S3. No murmur. No cyanosis or clubbing. No ascites. Pulses: Dorsalis pedis and posterior tibial pulses +1 to +2 bilaterally. ABDOMEN: Soft. Nontender. Bowel sounds active. No CVA tenderness. No mass felt. EXTREMITIES: No edema. Full range of motion of all extremities, equal. NEUROLOGIC: No focal deficit. Cranial nerves II through XII are grossly intact. No headache, no double vision or headache. SKIN: Not dry. Intact. Turgor - normal. LYMPHATIC: No palpable lymph nodes/no lymphedema. MUSCULOSKELETAL: Normal joints with no swelling. Muscle tone is normal. White blood count 29.32, hemoglobin 11.6, hematocrit 36.6, platelets 307. ABGs on 2L NC - 02 saturation 90, pH 7.505, pc02 38.4, p02 53, bicarb 30.3, sodium 133.2, potassium 4.07, BUN 19.1, creatinine 0.76. AST 37.2, ALT 39.3. Covid-19 test pending. ASSESSMENT: 1. ACUTE RESPIRATORY FAILURE 2. RIGHT LOWER LOBE PNEUMONIA 3. SEVERE COPD, OXYGEN DEPENDENT 4. SHORTNESS OF BREATH 5. KNOWN SCATTERED PULMONARY NODULES 6. HISTORY OF PE ON LONG-TERM COUMADIN 7. HISTORY OF ANEMIA PLAN: 1. Admit. 2. She will be admitted as a person under investigation and placed in Covid isolation. Covid testing pending. 3. Routine telemetry orders. 4. Continue medications. 5. Daily CBC, CMP, PT and INR. 6. Albuterol inhaler two puffs q.4hr OLVIN. 7. Merrem 1 gm IV q.12hr. 8. Solu-Medrol 125 mg IV q.8hr. 9. Advair one puff b.i.d. OLVIN. 10. Will monitor for hyperglycemia due to steroids. 11. Regular diet. 12. Will follow closely. 13. The patient requests "do not intubate", "CPR only". The patient was seen and examined with Dr. Yo, plan was discussed. TIME SPENT: More than 70 minutes. [facility]
--- NOTE | 2019-11-15 09:23 | PCM.PROG ---
Attending Provider: ATTENDING PROVIDER: Dr. RAISA RASCON This patient is seen with Zuly Henry, Nurse Practitioner. DATE OF SERVICE: 11/15/19 SUBJECTIVE: This 79 year old /WHITE F was hospitalized 11/12/19. The patient is resting comfortably. Still short of breath and very weak with productive cough with light yellow sputum. No fever. REVIEW OF SYSTEMS: CONSTITUTIONAL: No night sweats. No fatigue, malaise, lethargy. No fever or chills. Weakness. HEENT: Eyes: No visual changes. No eye pain. No eye discharge. ENT: No runny nose. No epistaxis. No sinus pain. No odynophagia. No congestion. RESPIRATORY: Cough, no congestion. No hemoptysis. Shortness of breath. CARDIOVASCULAR: No angina symptoms. No CHF symptoms. No atypical chest pain for CAD. No palpitations. No orthopnea.. GASTROINTESTINAL: No abdominal pain. No nausea or vomiting. No diarrhea or constipation. No hematemesis. No hematochezia. GENITOURINARY: No urgency. No frequency. No dysuria. No hematuria. No obstructive symptoms. No discharge. No pain. No significant abnormal bleeding. MUSCULOSKELETAL: No musculoskeletal pain; no joint swelling. NEUROLOGICAL: Awake, alert, oriented to time, place and person. No headache. No neck pain. No syncope. No seizures. No dizziness. PSYCHIATRIC: Not anxious. No depression. No suicidal thoughts. No homicidal thoughts. SKIN: No rash. No lesions. No wounds. ENDOCRINE: No unexplained weight loss. No weight gain. HEMATOLOGIC/LYMPHATIC: No anemia. No purpura. No petechiae. No prolonged or excessive bleeding. No palpable lymph nodes. PHYSICAL EXAMINATION: GENERAL: The patient is awake, alert and oriented, lying in bed in no distress. VITAL SIGNS: Temperature 97.9 F, Pulse 73, Respiratory Rate 18, BP 152/74, Pulse Ox 97% HEENT: Head normocephalic, atraumatic. Eyes: Extraocular muscles are intact. Pupils are equal, round and reactive to light and accommodation. Ears: No lesions. Nose appeared normal. Throat: No exudate or erythema. NECK: Supple. No JVD, no carotid bruit. No lymphadenopathy or thyromegaly. LUNGS: Diminished breath sounds with bilateral Rhonchi. Clear to auscultation. Percussion note normal. Chest symmetrical. HEART: S1, S2, no S3. No murmurs. No cyanosis or clubbing. No ascites. Pul ses: Dorsalis pedis and posterior tibial pulses +1 to +2 both sides. ABDOMEN: Soft. Non-tender. Bowel sounds active. No CVA tenderness. No mass felt. EXTREMITIES: No edema. Full range of motion of all extremities, equal. NEUROLOGIC: No focal deficit. Cranial nerves II through XII are grossly intact. No headache, no double vision or headache. SKIN: Not dry. Intact. Turgor-normal. LYMPHATIC: No palpable lymph nodes/no lymphedema. MUSCULOSKELETAL: Normal joints with no swelling. Muscle tone is normal. LAB REVIEW: 11/15/19 04:35 11/15/19 04:35 11/15/19 04:35: Sodium 134.9, Potassium 4.05, Chloride 100.1, Carbon Dioxide 32.8 H, Anion Gap 6.05, BUN 28.7 H, Creatinine 0.79, Estimated GFR (MDRD) 71.00, BUN/Creatinine Ratio 36.32, Glucose 84.4, Calcium 9.83, Total Bilirubin 0.23, AST 24.5, ALT 26.9, Alkaline Phosphatase 128.7, Total Protein 5.92 L, Albumin 2.89 L, Globulin 3.03, Albumin/Globulin Ratio 0.95 11/15/19 04:35: PT 54.6 H, INR 6.17 H* 11/15/19 04:35: WBC 18.79 H, RBC 4.49, Hgb 12.6, Hct 39.5, MCV 88.0, MCH 28.1, MCHC 31.9, RDW Coeff of Elie 16.5 H, Plt Count 379, Neutrophils % (Manual) 74.0, Lymphocytes % (Manual) 9.0 L, Monocytes % (Manual) 17.0 H, Anisocytosis Not present 11/12/19 12:40: SARS-CoV-2 RNA (RT-PCR) ASSESSMENT: Please see below. 1. Right lower lobe pneumonia 2. Severe shortness of breath 3. History of DVT/PE on Coumadin 4. Hypercoagulopathy PLAN: 1. Hold Coumadin 2. Continue IV antibiotics. Plan and coordination of the patient's care discussed in the presence of Benefits Assistant and nurse. SCRIBED BY: LEE RODRIGUEZ, Milk Condenser scribed while in presence of service performed by Dr. Rascon/Zuly Henry APRN on 11/15/19 ([id number])
[2019-11-15] MEDS: DUONEB NEB SCH ×3 (09:59→19:20)
[2019-11-15] MEDS: PHENERGAN WITH CODEINE 6.25/10 MG/5 ML PO PRN (13:49)
--- NOTE | 2019-11-15 14:09 | PN ---
DATE OF SERVICE: 11/14/2019 SUBJECTIVE: 79 year old white female hospitalized with pneumonia. The patient's condition has improved. She is feeling a lot better. She has been up and about less short of breath. REVIEW OF SYSTEMS: CONSTITUTIONAL: No night sweats. No fatigue, malaise, lethargy. No fever or chills. HEENT: Eyes: No visual changes. No eye pain. No eye discharge. ENT: No runny nose. No epistaxis. No sinus pain. No sore throat. No odynophagia. No congestion. RESPIRATORY: No cough, no congestion. No hemoptysis. No shortness of breath. CARDIOVASCULAR: No angina symptoms. No CHF symptoms. No atypical chest pain for CAD. No palpitations. No PND. No orthopnea. GASTROINTESTINAL: No abdominal pain. No nausea or vomiting. No diarrhea or constipation. No hematemesis. No hematochezia. GENITOURINARY: No urgency. No frequency. No dysuria. No hematuria. No obstructive symptoms. No discharge. No pain. No significant abnormal bleeding. MUSCULOSKELETAL: No musculoskeletal pain; no joint swelling. NEUROLOGICAL: No headache. No neck pain. No syncope. No seizures. No dizziness. PSYCHIATRIC: Not anxious. No depression. No suicidal thoughts. No homicidal thoughts. SKIN: No rash. No lesions. No wounds. ENDOCRINE: No unexplained weight loss. No weight gain. HEMATOLOGIC/LYMPHATIC: No anemia. No purpura. No petechiae. No prolonged or excessive bleeding. No palpable lymph nodes. PHYSICAL EXAMINATION: VITAL SIGNS: Temperature 98.3, pulse 78, respiratory rate 20, blood pressure 139/85 and pulse ox 98%. HEENT: Head normocephalic, atraumatic. Eyes: Extraocular muscles are intact. Pupils are equal, round and reactive to light and accommodation. Ears: No lesions. Nose appeared normal. Throat: No exudate or erythema. NECK: Supple. No JVD, no carotid bruit. No lymphadenopathy or thyromegaly. LUNGS: Decreased breath sounds with mild wheeze but good air entry. Percussion note normal. Chest symmetrical. HEART: S1, S2, no S3. No murmurs. No cyanosis or clubbing. No ascites. Pulses: Dorsalis pedis and posterior tibial pulses +1 to +2 bilaterally. ABDOMEN: Soft. Nontender. Bowel sounds active. No CVA tenderness. No mass felt. EXTREMITIES: No edema. Full range of motion of all extremities, equal. NEUROLOGIC: No focal deficit. Cranial nerves II through XII are grossly intact. No headache, no double vision or headache. SKIN: Not dry. Intact. Turgor - normal. LYMPHATIC: No palpable lymph nodes/no lymphedema. MUSCULOSKELETAL: Normal joints with no swelling. Muscle tone is normal. LABS: Hgb 11.1, hct 34, WBC 17,000 normal differential, creatinine 0.7, BUN 26, potassium 4. PRO BNP 526 but has no symptoms of CHF. ASSESSMENT: 1. Acute pneumonia right sided seems to be resolving 2. Severe chronic lung disease PLAN: 1. Discontinue IV fluids 2. Prednisone two tablets PO 3. Up and about 4. Continue IV antibiotics Merrem. The patient has pseudomonas CONDITION:Stable TIME SPENT: More than 30 minutes. Plan and coordination of the patient's care discussed in the presence of nurse. ANETA
--- NOTE | 2019-11-15 14:37 | PN ---
DATE OF SERVICE: 11/13/2019 SUBJECTIVE: 79 year old white female hospitalized with shortness of air, cough and congestion. The patient has pneumonia involving right lower lobe. She is feeling a lot better. REVIEW OF SYSTEMS: CONSTITUTIONAL: No night sweats. No fatigue, malaise, lethargy. No fever or chills. Over all status has improved. HEENT: Eyes: No visual changes. No eye pain. No eye discharge. ENT: No runny nose. No epistaxis. No sinus pain. No sore throat. No odynophagia. No congestion. RESPIRATORY: No cough, no congestion. No hemoptysis. Shortness of breath on exertion. CARDIOVASCULAR: No angina symptoms. No CHF symptoms. No atypical chest pain for CAD. No palpitations. No PND. No orthopnea. GASTROINTESTINAL: No abdominal pain. No nausea or vomiting. No diarrhea or constipation. No hematemesis. No hematochezia. Appetite has improved. GENITOURINARY: No urgency. No frequency. No dysuria. No hematuria. No obstructive symptoms. No discharge. No pain. No significant abnormal bleeding. MUSCULOSKELETAL: No musculoskeletal pain; no joint swelling. NEUROLOGICAL: No headache. No neck pain. No syncope. No seizures. No dizziness. PSYCHIATRIC: Not anxious. No depression. No suicidal thoughts. No homicidal thoughts. SKIN: No rash. No lesions. No wounds. ENDOCRINE: No unexplained weight loss. No weight gain. HEMATOLOGIC/LYMPHATIC: No anemia. No purpura. No petechiae. No prolonged or excessive bleeding. No palpable lymph nodes. PHYSICAL EXAMINATION: VITAL SIGNS: Temperature 97.8, pulse 82, respiratory rate 20, blood pressure 154/80 and pulse ox 96%. HEENT: Head normocephalic, atraumatic. Eyes: Extraocular muscles are intact. Pupils are equal, round and reactive to light and accommodation. Ears: No lesions. Nose appeared normal. Throat: No exudate or erythema. NECK: Supple. No JVD, no carotid bruit. No lymphadenopathy or thyromegaly. LUNGS: Decreased breath sounds but clear to auscultation. Percussion note normal. Chest symmetrical. HEART: S1, S2, no S3. No murmurs. No cyanosis or clubbing. No ascites. Pulses: Dorsalis pedis and posterior tibial pulses +1 to +2 bilaterally. ABDOMEN: Soft. Nontender. Bowel sounds active. No CVA tenderness. No mass felt. EXTREMITIES: No edema. Full range of motion of all extremities, equal. NEUROLOGIC: No focal deficit. Cranial nerves II through XII are grossly intact. No headache, no double vision or headache. SKIN: Not dry. Intact. Turgor - normal. LYMPHATIC: No palpable lymph nodes/no lymphedema. MUSCULOSKELETAL: Normal joints with no swelling. Muscle tone is normal. LABS: Hgb 11.4, hct 35, WBC 19,000 normal differential, creatinine 0.6, BUN 19, potassium 3.6. ASSESSMENT: 1. Right lower lobe pneumonia 2. Dehydration 3. Chronic lung disease PLAN: 1. Continue IV antibiotics 2. The patient has had pseudomonas so we will give Merrem 1 gram Q 12 hours 3. Continue Vancomycin CONDITION:Stable Pulmonary rehab discussed, declined. TIME SPENT: More than 30 minutes. Plan and coordination of the patient's care discussed in the presence of nurse. ANETA
[2019-11-15] MEDS: MUCOMYST 20% NEB NEB SCH (19:20)
[2019-11-15] MEDS: PULMICORT 1 MG/2 ML NEB SCH (20:00)
[2019-11-15] MEDS: XANAX PO PRN (20:10)
[2019-11-16] MEDS: DUONEB NEB SCH ×4 (05:10→20:12)
[2019-11-16] MEDS: MUCOMYST 20% NEB NEB SCH (05:10)
[2019-11-16] MEDS: PULMICORT 1 MG/2 ML NEB SCH ×2 (05:20→20:22)
[2019-11-16] MEDS: FERROUS SULFATE PO SCH (05:50)
[2019-11-16] MEDS: PROTONIX PO SCH ×2 (05:50→16:30)
[2019-11-16] MEDS: MERREM 1 GM/50 ML NACL 1 GM/50 ML BAG IV SCH ×5 (08:19→21:59)
--- NOTE | 2019-11-16 08:38 | PCM.PROG ---
Attending Provider: ATTENDING PROVIDER: Dr. RAISA RASCON This patient is seen with Brooke Wesley, Nurse Practitioner. DATE OF SERVICE: 11/16/19 SUBJECTIVE: This 79 year old /WHITE F was hospitalized 11/12/19. The patient is resting in bed. Complaining of headache this morning across her temples. She feels like this came on after her breathing treatment this morning. We will discontinue the Mucomyst from her breathing treatments. She continue to have productive cough. She complains of mild shortness of breath. We will continue IV antibiotics. We will check her weight. REVIEW OF SYSTEMS: CONSTITUTIONAL: No night sweats. No fatigue, malaise, lethargy. No fever or ch ills. Weakness. HEENT: Eyes: No visual changes. No eye pain. No eye discharge. ENT: No runny nose. No epistaxis. No sinus pain. No odynophagia. No congestion. RESPIRATORY: Cough, no congestion. No hemoptysis. Mild shortness of breath. CARDIOVASCULAR: No angina symptoms. No CHF symptoms. No atypical chest pain for CAD. No palpitations. No orthopnea.. GASTROINTESTINAL: No abdominal pain. No nausea or vomiting. No diarrhea or constipation. No hematemesis. No hematochezia. GENITOURINARY: No urgency. No frequency. No dysuria. No hematuria. No obstructive symptoms. No discharge. No pain. No significant abnormal bleeding. MUSCULOSKELETAL: No musculoskeletal pain; no joint swelling. NEUROLOGICAL: Awake, alert, oriented to time, place and person. Headache. No neck pain. No syncope. No seizures. No dizziness. PSYCHIATRIC: Not anxious. No depression. No suicidal thoughts. No homicidal thoughts. SKIN: No rash. No lesions. No wounds. ENDOCRINE: No unexplained weight loss. No weight gain. HEMATOLOGIC/LYMPHATIC: No anemia. No purpura. No petechiae. No prolonged or excessive bleeding. No palpable lymph nodes. PHYSICAL EXAMINATION: GENERAL: The patient is awake, alert and oriented, sitting in bed in no distress. VITAL SIGNS: Temperature 98.2 F, Pulse 82, Respiratory Rate 18, BP 145/72, Pulse Ox 93% HEENT: Head normocephalic, atraumatic. Eyes: Extraocular muscles are intact. Pupils are equal, round and reactive to light and accommodation. Ears: No lesions. Nose appeared normal. Throat: No exudate or erythema. NECK: Supple. No JVD, no carotid bruit. No lymphadenopathy or thyromegaly. LUNGS: Diminished breath with tightness throughout. Clear to auscultation. Percussion note normal. Chest symmetrical. HEART: S1, S2, no S3. No murmurs. No cyanosis or clubbing. No ascites. Pulses: Dorsalis pedis and posterior tibial pulses +1 to +2 both sides. ABDOMEN: Soft. Non-tender. Bowel sounds active. No CVA tenderness. No mass felt. EXTREMITIES: No edema. Full range of motion of all extremities, equal. NEUROLOGIC: No focal deficit. Cranial nerves II through XII are grossly intact. No headache, no double vision or headache. SKIN: Not dry. Intact. Turgor-normal. LYMPHATIC: No palpable lymph nodes/no lymphedema. MUSCULOSKELETAL: Normal joints with no swelling. Muscle tone is normal. LAB REVIEW: 11/16/19 05:06 11/16/19 05:06 11/16/19 05:06: Sodium 134.5, Potassium 3.95, Chloride 98.6, Carbon Dioxide 35.0 H, Anion Gap 4.85, BUN 29.3 H, Creatinine 0.73, Estimated GFR (MDRD) 77.00, BUN/Creatinine Ratio 40.13, Glucose 69.9 L, Calcium 9.53, Total Bilirubin 0.35, AST 23.9, ALT 25.1, Alkaline Phosphatase 123.7, Total Protein 5.71 L, Albumin 2.79 L, Globulin 2.92, Albumin/Globulin Ratio 0.95 11/16/19 05:06: PT 29.1 H D, INR 3.17 D 11/16/19 05:06: WBC 13.73 H D, RBC 4.15 L, Hgb 11.7 L, Hct 37.0, MCV 89.2, MCH 28.2, MCHC 31.6 L, RDW Coeff of Elie 16.5 H, Plt Count 311, Immature Gran % (Auto) 0.7, Neut % (Auto) 83.5 H, Lymph % (Auto) 7.9 L, [place] % (Auto) 7.4, Eos % (Auto) 0.4, Baso % (Auto) 0.1, Neut # (Auto) 11.5 H, Lymph # (Auto) 1.1, [place] # (Auto) 1.0, Eos # (Auto) 0.1, Baso # (Auto) 0.0, Immature Gran # (Auto) 0.1 11/12/19 12:40: SARS-CoV-2 RNA (RT-PCR) ASSESSMENT: Please see below. 1. Right lower lobe pneumonia 2. Severe shortness of breath 3. History of DVT/PE on Coumadin 4. Hypercoagulopathy PLAN: 1. Discontinue Mucomyst 2. Daily weight 3. Restart Coumadin 3mg 4. Continue IV Merrem 5. Encourage good fluid and nutritional intake 6. Encourage cough and deep breathing Plan and coordination of the patient's care discussed in the presence of Plant Operations Engineer and nurse. SCRIBED BY: Luis REDD scribed while in presence of service performed by Dr. Rascon/Brooke Wesley APRN on 11/16/19 ([id number])
[2019-11-16] MEDS: PREDNISONE PO SCH (08:43)
[2019-11-16] MEDS: COREG PO SCH ×2 (08:43→16:30)
[2019-11-16] MEDS: MUCINEX PO SCH ×2 (08:43→21:00)
[2019-11-16] MEDS: XANAX PO PRN ×2 (08:47→21:00)
[2019-11-16] MEDS ORDERED: LASIX IVP STA (08:52)
[2019-11-16] MEDS: IPRATROPIUM BROMIDE NAS SCH ×2 (09:23→21:01)
[2019-11-16] MEDS: BRIMONIDINE TARTRATE 0.2% OPTH SOL EACHEYE SCH ×2 (09:25→21:00)
--- NOTE | 2019-11-16 12:45 | PN ---
DATE OF SERVICE: 11/16/2019 SUBJECTIVE: She is feeling a lot better. In the morning she was little tight and unable to breathing properly and deeply. After giving IV steroid seems to have open up and the lung has more air entry. She says that she is feeling better than the morning. No symptoms of CHF but we will give IV Lasix 20mg for possibility of fluid retention from chronic steroid therapy. TIME SPENT: More than 30 minutes. Plan and coordination of the patient's care discussed in the presence of nurse. ANETA
[2019-11-16] MEDS: SOLU-CORTEF 250 MG IVP SCH ×2 (12:52→20:24)
--- NOTE | 2019-11-16 12:59 | PN ---
DATE OF SERVICE: 11/16/2019 SUBJECTIVE: The patient was seen and examined with Nurse Practitioner. The patient's condition is slowly improving. Short of breath on minimal exertion. Pulmonary rehab recommended. The patient is afebrile. Appetite has improved. Continue Meropenem. TIME SPENT: More than 30 minutes. Plan and coordination of the patient's care discussed in the presence of nurse. ANETA
--- NOTE | 2019-11-16 13:19 | PN ---
DATE OF SERVICE: 11/15/2019 SUBJECTIVE: The patient was seen and examined with the Nurse Practitioner. The patient still feels weak and tired but coughing much less. The appetite seems to be improving. We will continue the antibiotic Merrem. Slowly improving. No evidence of CHF. TIME SPENT: More than 30 minutes. Plan and coordination of the patient's care discussed in the presence of nurse. ANETA
--- NOTE | 2019-11-16 15:42 | DI ---
EXAM: Chest one view HISTORY: Pneumonia, follow COMPARISON: 11/12/2019 TECHNIQUE: Single view of the chest was performed FINDINGS: Patchy consolidation in the right mid to lower lung field and mild left basilar consolidat ion, improved. Small right pleural effusion. No visible pneumothorax. Emphysema. Heart normal in size.Mediastinal contour unchanged. IMPRESSION: 1. Right greater than left sided pneumonia, improved 2. Emphysema
[2019-11-16] MEDS ORDERED: COUMADIN PO SCH (17:00)
[2019-11-17] MEDS: SOLU-CORTEF 250 MG IVP SCH ×2 (04:29→13:09)
[2019-11-17] MEDS: MERREM 1 GM/50 ML NACL 1 GM/50 ML BAG IV SCH ×2 (04:30→13:09)
[2019-11-17] MEDS: DUONEB NEB SCH ×3 (04:40→13:57)
[2019-11-17] MEDS: PULMICORT 1 MG/2 ML NEB SCH (04:50)
[2019-11-17 05:46] LABS: HEMATOCRIT 35.9 % (37.0-47.0)
[2019-11-17] MEDS: FERROUS SULFATE PO SCH (05:57)
[2019-11-17] MEDS: PROTONIX PO SCH (05:57)
[2019-11-17] MEDS: MUCINEX PO SCH (08:19)
[2019-11-17] MEDS: XANAX PO PRN (08:19)
[2019-11-17] MEDS: COREG PO SCH (08:19)
[2019-11-17] MEDS: BRIMONIDINE TARTRATE 0.2% OPTH SOL EACHEYE SCH (08:20)
[2019-11-17] MEDS: IPRATROPIUM BROMIDE NAS SCH (08:20)
[2019-11-17 13:55] VITALS: BP 127/62; TEMP 98.4
--- NOTE | 2019-11-18 13:22 | CM.DICTOOL ---
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 GENERALIZED ANXIETY DVT AND PE - SKILLED NURSING COUMADIN HYPER-COAGULATION POLYARTHRITIS GERD OSTEOPENIA TOBACCO USE- QUIT SMOKING GREATER THAN TEN YEARS AGO DEGENERATIVE DISK DISEASE LOW BMI HYPERGLYCEMIA OSTEOARTHRITIS, RT SHOULDER GOUT SURGICAL HISTORY: STATUS POST HYSTERECTOMY STATUS POST APPENDECTOMY LT CATARACT EXTRACTION LAST VITALS Temp Pulse Resp BP Pulse Ox 98.1 F 84 16 151/78 H 96 11/17/19 05:58 11/17/19 05:58 11/17/19 05:58 11/17/19 05:58 11/17/19 09:58 TAKE THESE MEDICATIONS AT HOME Acetaminophen (Tylenol) 650 mg PO Q4HR PRN PRN Reason: fever/ pain Last Admin: 11/16/19 08:16 Dose: 650 mg Documented by: Albuterol/Ipratropium (Duoneb) 3 ml NEB RTQID [facility] Last Admin: 11/17/19 09:59 Dose: 3 ml Documented by: Alprazolam (Xanax) 0.25 mg PO TID PRN PRN Reason: Anxiety Last Admin: 11/17/19 08:19 Dose: 0.25 mg Documented by: Brimonidine Tartrate (Brimonidine Tartrate 0.2% Opt [place]) 1 drop EACHEYE BID [facility] Last Admin: 11/17/19 08:20 Dose: 1 drop Documented by: Budesonide (Pulmicort 1 Mg/2 Ml) 1 mg [facility] 599,1999 [facility] Last Admin: 11/17/19 04:50 Dose: 1 mg Documented by: Carvedilol (Coreg) 3.125 mg PO BIDWM [facility] Last Admin: 11/17/19 08:19 Dose: 3.125 mg Documented by: Ferrous Sulfate (Ferrous Sulfate) 324 mg PO QDAC [facility] Last Admin: 11/17/19 05:57 Dose: 324 mg Documented by: Guaifenesin (Mucinex) 600 mg PO Q12HR [facility] Last Admin: 11/17/19 08:19 Dose: 600 mg Documented by: Hydrocortisone Sodium Succinate (Solu-Cortef 250 Mg) 125 mg IVP Q8HR [facility] Last Admin: 11/17/19 13:09 Dose: 125 mg Documented by: Meropenem/Sodium Chloride (Merrem 1 Gm/50 Ml Nacl) 1 gm in 50 mls @ 75 mls/hr IV Q8HR [facility] Stop: 11/19/19 16:08 Last Admin: 11/17/19 13:09 Dose: 75 mls/hr Documented by: Morphine Sulfate (Morphine 2 Mg/Ml Syringe) 2 mg IVP Q2H PRN PRN Reason: Anxiety Non-Formulary Medication (Ipratropium [place]) 2 spray EDWIN BID [facility] Last Admin: 11/17/19 08:20 Dose: Not Given Documented by: Pantoprazole Sodium (Protonix) 40 mg PO BIDAC [facility] Last Admin: 11/17/19 05:57 Dose: 40 mg Documented by: Promethazine HCl/Codeine (Phenergan With Codeine 6.25/10 Mg/5 Ml) 10 ml PO Q6H PRN PRN Reason: Cough Last Admin: 11/15/19 13:49 Dose: 10 ml Documented by: Sodium Chloride (Saline Flush) 1 syr IVF Q8HR [facility] Last Admin: 11/17/19 13:09 Dose: 1 syr Documented by: Sodium Chloride (Saline Flush) 1 syr IVF PRN PRN PRN Reason: maintain IV access Last Admin: 11/16/19 16:23 Dose: 1 syr Documented by: Warfarin Sodium (Coumadin) 3 mg PO QPM [facility] Last Admin: 11/16/19 16:30 Dose: 3 mg Documented by: ALLERGIES ciprofloxacin [From Cipro] Adverse Reaction (Intermediate, Verified 11/17/19 08:38) acetylcysteine [From Mucomyst] Adverse Reaction (Verified 11/17/19 08:18) hydrocodone Adverse Reaction (Verified 11/12/19 10:49) Abdominal Pain gi cocktail Adverse Reaction (Uncoded 06/01/19 14:27) mucomyst Adverse Reaction (Uncoded 11/17/19 08:38) Head pressure DISCONTINUED MEDICATIONS NONE NEW PRESCRIPTIONS: NONE SMOKING: NON- APPLICABLE DISEASE SPECIFIC EDUCATION: PNEUMONIA COVID LAB REVIEW: 11/17/19 05:30 11/17/19 05:30 11/17/19 05:30: Sodium 132.7 L, Potassium 3.83, Chloride 93.5 L, Carbon Dioxide 37.0 H, Anion Gap 6.03, BUN 24.0 H, Creatinine 0.66, Estimated GFR (MDRD) 87.00, BUN/Creatinine Ratio 36.36, Glucose 116.6 H, Calcium 9.45, Total Bilirubin 0.30, AST 23.3, ALT 26.9, Alkaline Phosphatase 133.3, Total Protein 5.90 L, Albumin 2.98 L, Globulin 2.92, Albumin/Globulin Ratio 1.02 11/17/19 05:30: PT 20.7 H D, INR 2.21 11/17/19 05:30: WBC 14.08 H, RBC 4.09 L, Hgb 11.5 L, Hct 35.9 L, MCV 87.8, MCH 28.1, MCHC 32.0, RDW Coeff of Elie 16.3 H, Plt Count 286, Immature Gran % (Auto) 0.9, Neut % (Auto) 90.1 H, Lymph % (Auto) 5.2 L, [place] % (Auto) 3.7, Eos % (Auto) 0.0, Baso % (Auto) 0.1, Neut # (Auto) 12.7 H, Lymph # (Auto) 0.7, [place] # (Auto) 0.5, Eos # (Auto) 0.0, Baso # (Auto) 0.0, Immature Gran # (Auto) 0.1 PLAN: DISCHARGE TO [facility] SWING BED ACTIVITY: UP WITH WALKER AND SBA CONTINUE OXYGEN AT 2 L/M PER NASAL CANNULA CONTINUOS, AND PROPER PRECAUTION DIET: REGULAR WITH ADEQUATE FLUIDS CBC AND CMP EVERY THREE DAYS, START , 11/18/2019 PT/INR DAILY, START 11/18/2019 WEIGH EVERY THREE DAYS, START 11/18/2019 MD FOLLOW UP: DR RASCON/ JAZZMINE CHEW APRN / TERESA LYONS APRN WILL SEE ON ROUNDS DR. OLIVAS, SALESPERSON TRAILERS AND MOTOR HOMES, SCHEDULED FOR JAN 12, 2020 @ 0900 (CONTACTED CHESTER AT THE OFFICE) CODE STATUS : DO NOT INTUBATE, CPR ONLY MRS STEINBERG REMAINS ALERT AND ORIENTED X 4. SHE IS PLEASANT AND IN NO DISTRESS. SHE USES A WHEELED WALKER TO AMBULATE TO BATHROOM. SHE IS DEPENDENT OF OXYGEN AND IS NOT ABLE TO WALK FAR WITHOUT SEVERE DYSPNEA. SHE IS ORTHOPNIC.LUNGS COURSE AND DIMINISHED. CONTINUES TO HAVE THICK YELLOW SPUTUM PRODUCTION. SHE ALSO GETS OUT OF BREATH EATING. REMARKABLY, FOR NOW,NUTRITIONAL AND FLUID INTAKE ARE GOOD. SKIN REMAINS WARM, INTACT AND DRY. CONTINENT OF BOWEL AND BLADDER WITH OCCASIONAL INCONTINENCE EPISODES WHEN SHE IS ACUTELY WEAKER. SHE HAS IMPROVED, HOWEVER STILL NEEDS SEVERAL MORE DAYS OF IV ANTIBIOTICS. WILL DISCHARGE INPATIENT AND ADMIT TO SWING BED. _ MD JAZMZINE SMILEY APRN ALYCE HANNAN, APRN
--- NOTE | 2019-11-19 11:13 | DS ---
DATE OF SERVICE: 11/17/19 - discharged to Swing bed FINAL DIAGNOSIS: 1. RT LOWER LOBE PNEUMONIA 2. HISTORY OF DVT/PE ON COUMADIN 3. HYPERCOAGULOPATHY- RESOLVED 4. RECURRENT PNEUMONIA HX: 5. SEVERE COPD, OXYGEN DEPENDENT 6. ANEMIA 7. H/O ACUTE RESPIRATORY FAILURE/ HAS CHRONIC RESPIRATORY FAILURE 8. RECURRENT PNEUMONIA 9. PULMONARY FIBROSIS 10. PULMONARY NODULE- FOLLOWED BY DR. OLIVAS 11. GENERALIZED ANXIETY 12. DVT AND PE - AIX ARCHITECT COUMADIN 13. HYPER-COAGULATION 14. POLYARTHRITIS 15. GERD 16. OSTEOPENIA 17. TOBACCO USE- QUIT SMOKING GREATER THAN TEN YEARS AGO 18. DEGENERATIVE DISK DISEASE 19. LOW BMI 20. HYPERGLYCEMIA 21. OSTEOARTHRITIS, RT SHOULDER 22. GOUT SURGICAL HISTORY: 23. STATUS POST HYSTERECTOMY 24. STATUS POST APPENDECTOMY 25. LT CATARACT EXTRACTION LAST VITALS Temp Pulse Resp BP Pulse Ox 98.1 F 84 16 151/78 H 96 11/17/19 05:58 11/17/19 05:58 11/17/19 05:58 11/17/19 05:58 11/17/19 09:58 DISCHARGE INSTRUCTIONS: 1. DISCHARGE TO [facility] SWING BED. 2. CONTINUE OXYGEN AT 2 L/M PER NASAL CANNULA CONTINUOS, AND PROPER PRECAUTION 3. CBC AND CMP EVERY THREE DAYS, START , 11/18/2019 4. PT/INR DAILY, START 11/18/2019 5. WEIGH EVERY THREE DAYS, START 11/18/2019 6. MD FOLLOW UP: DR RASCON/ JAZZMINE CHEW APRN / TERESA LYONS APRN WILL SEE ON ROUNDS 7. DR. OLIVAS, BAGGAGE SCREENER, SCHEDULED FOR JAN 12, 2020 @ 0900 (CONTACTED CHESTER AT THE OFFICE) 8. CODE STATUS : DO NOT INTUBATE, CPR ONLY MEDICATIONS AT DISCHARGE: Acetaminophen (Tylenol) 650 mg PO Q4HR PRN PRN Reason: fever/ pain Last Admin: 11/16/19 08:16 Dose: 650 mg Documented by: Albuterol/Ipratropium (Duoneb) 3 ml NEB RTQID OLVIN Last Admin: 11/17/19 09:59 Dose: 3 ml Documented by: Alprazolam (Xanax) 0.25 mg PO TID PRN PRN Reason: Anxiety Last Admin: 11/17/19 08:19 Dose: 0.25 mg Documented by: Brimonidine Tartrate (Brimonidine Tartrate 0.2% Opt [place]) 1 drop EACHEYE BID [facility] [place] Last Admin: 11/17/19 08:20 Dose: 1 drop Documented by: Budesonide (Pulmicort 1 Mg/2 Ml) 1 mg NEB [id number] [facility] [place] Last Admin: 11/17/19 04:50 Dose: 1 mg Documented by: Carvedilol (Coreg) 3.125 mg PO BIDWM [facility] [place] Last Admin: 11/17/19 08:19 Dose: 3.125 mg Documented by: Ferrous Sulfate (Ferrous Sulfate) 324 mg PO QDAC [facility] [place] Last Admin: 11/17/19 05:57 Dose: 324 mg Documented by: Guaifenesin (Mucinex) 600 mg PO Q12HR [facility] [place] Last Admin: 11/17/19 08:19 Dose: 600 mg Documented by: Hydrocortisone Sodium Succinate (Solu-Cortef 250 Mg) 125 mg IVP Q8HR [facility] [place] Last Admin: 11/17/19 13:09 Dose: 125 mg Documented by: Meropenem/Sodium Chloride (Merrem 1 Gm/50 Ml Nacl) 1 gm in 50 mls @ 75 mls/hr IV Q8HR [facility] [place] Stop: 11/19/19 16:08 Last Admin: 11/17/19 13:09 Dose: 75 mls/hr Documented by: Morphine Sulfate (Morphine 2 Mg/Ml Syringe) 2 mg IVP Q2H PRN PRN Reason: Anxiety Non-Formulary Medication (Ipratropium Manly) 2 spray EDWIN BID [facility] [place] Last Admin: 11/17/19 08:20 Dose: Not Given Documented by: Pantoprazole Sodium (Protonix) 40 mg PO BIDAC [facility] [place] Last Admin: 11/17/19 05:57 Dose: 40 mg Documented by: Promethazine HCl/Codeine (Phenergan With Codeine 6.25/10 Mg/5 Ml) 10 ml PO Q6H PRN PRN Reason: Cough Last Admin: 11/15/19 13:49 Dose: 10 ml Documented by: Sodium Chloride (Saline Flush) 1 syr IVF Q8HR [facility] [place] Last Admin: 11/17/19 13:09 Dose: 1 syr Documented by: Sodium Chloride (Saline Flush) 1 syr IVF PRN PRN PRN Reason: maintain IV access Last Admin: 11/16/19 16:23 Dose: 1 syr Documented by: Warfarin Sodium (Coumadin) 3 mg PO QPM OLVIN Last Admin: 11/16/19 16:30 Dose: 3 mg Documented by: NEW PRESCRIPTIONS: NONE DISCONTINUED MEDICATIONS: NONE DIET INSTRUCTIONS: REGULAR WITH ADEQUATE FLUIDS ACTIVITY: UP WITH WALKER AND SBA SMOKING: NON- APPLICABLE DISEASE SPECIFIC EDUCATION: PNEUMONIA COVID HOSPITAL COURSE: 79-year-old white female hospitalized with shortness of air. On further workup the patient had right lower lobe pneumonia. The patient was ruled out to have Covid. The patient has been treated with Merrem 1 gm q.8 which is in the Imipenem family. 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 She was also treated with Solu-Cortef 250 mg q.8, 125 mg q.8. She has also been started on nebs. The patient's condition has improved but she is going to need some more antibiotics in IV form to prevent further recurrence. She is also short of breath and needs physical therapy in the way of ambulation. She is going to be discharged to the swing bed. On the day of discharge, her hemoglobin was 11.5, hematocrit 35, WBC 14.08 normal differential, creatinine 0.6, BUN 24, potassium 3.8. LABS: 11/17/19 05:30: Sodium 132.7 L, Potassium 3.83, Chloride 93.5 L, Carbon Dioxide 37.0 H, Anion Gap 6.03, BUN 24.0 H, Creatinine 0.66, Estimated GFR (MDRD) 87.00, BUN/Creatinine Ratio 36.36, Glucose 116.6 H, Calcium 9.45, Total Bilirubin 0.30, AST 23.3, ALT 26.9, Alkaline Phosphatase 133.3, Total Protein 5.90 L, Albumin 2.98 L, Globulin 2.92, Albumin/Globulin Ratio 1.02 11/17/19 05:30: PT 20.7 H D, INR 2.21 11/17/19 05:30: WBC 14.08 H, RBC 4.09 L, Hgb 11.5 L, Hct 35.9 L, MCV 87.8, MCH 28.1, MCHC 32.0, RDW Coeff of Elie 16.3 H, Plt Count 286, Immature Gran % (Auto) 0.9, Neut % (Auto) 90.1 H, Lymph % (Auto) 5.2 L, [place] % (Auto) 3.7, Eos % (Auto) 0.0, Baso % (Auto) 0.1, Neut # (Auto) 12.7 H, Lymph # (Auto) 0.7, [place] # (Auto) 0.5, Eos # (Auto) 0.0, Baso # (Auto) 0.0, Immature Gran # (Auto) 0.1 TIME SPENT: More than 60 minutes. MTDD
--- NOTE | 2019-11-19 11:17 | PN ---
BILLIN11/12/19 ADMISSION DAY LEVEL 5 11/13/19 INTERMEDIATE 11/14/19 INTERMEDIATE 11/15/19 INTERMEDIATE 11/16/19 INTERMEDIATE 11/17/19 DISCHARGED TO SWING BED [facility]
== END 2019-11-17 14:10 | disposition swing bed (61) | DRG 951 ==
LOC: ED 10:23 → SCU 12:33 → EDSTATUS 12:44 → SCU 13:44 → MEDSURG B 11-15 10:36 → EDSTATUS 11-16 08:58
PROVIDERS: ADMIT Internal Medicine; ATTEND Internal Medicine
DX: E86.0 Dehydration; Z79.01 Long term (current) use of anticoagulants; Z03.818 Encounter for observation for suspected exposure to other biological agents ruled out; M10.9 Gout, unspecified; J84.10 Pulmonary fibrosis, unspecified; Z86.718 Personal history of other venous thrombosis and embolism; R53.1 Weakness; Z86.711 Personal history of pulmonary embolism; Z51.81 Encounter for therapeutic drug level monitoring; K21.9 Gastro-esophageal reflux disease without esophagitis; M13.0 Polyarthritis, unspecified; D64.9 Anemia, unspecified; R91.1 Solitary pulmonary nodule; R51 Headache; R53.83 Other fatigue; J18.9 Pneumonia, unspecified organism; J96.20 Acute and chronic respiratory failure, unspecified whether with hypoxia or hypercapnia; Z79.899 Other long term (current) drug therapy; Z99.81 Dependence on supplemental oxygen; F41.1 Generalized anxiety disorder; M85.80 Other specified disorders of bone density and structure, unspecified site; Z87.01 Personal history of pneumonia (recurrent); R79.1 Abnormal coagulation profile; Z87.891 Personal history of nicotine dependence; R06.02 Shortness of breath; J44.9 Chronic obstructive pulmonary disease, unspecified

== ENCOUNTER 2020-01-10 11:58 | Inpatient (IN) ==
[2020-01-10] MEDS ORDERED: PHENERGAN WITH CODEINE 6.25/10 MG/5 ML PO PRN (12:40)
[2020-01-10] MEDS ORDERED: NITROSTAT SL PRN (12:52)
[2020-01-10] MEDS ORDERED: ATROPINE SULFATE PFS IVP PRN (12:52)
[2020-01-10] MEDS ORDERED: TYLENOL PO PRN (12:52)
[2020-01-10] MEDS ORDERED: VISTARIL INJ IM PRN (12:52)
[2020-01-10 13:30] LABS: BASOPHILS # (AUTO) 0.1 K/uL (0-0.2); BASOPHILS % (AUTO) 0.3 % (0.0-3.0); EOSINOPHILS % (AUTO) 0.2 % (0.0-7.0); HEMATOCRIT 34.4 % (37.0-47.0); HEMOGLOBIN 11.2 g/dl (12.0-16.0); IMMATURE GRANULOCYTE # (AUTO) 0.1 (0.0-1.0); IMMATURE GRANULOCYTE % (AUTO) 0.6 % (0.0-5.0); LYMPHOCYTES # (AUTO) 0.5 K/uL (0.60-3.4); MEAN CORPUSCULAR HGB CONC 32.6 (31.8-35.4); MEAN CORPUSCULAR VOLUME 89.6 fl (81.0-99.0); MONOCYTES % (AUTO) 5.5 (0-10); NEUTROPHILS # (AUTO) 15.9 K/ul (2.0-6.9); NEUTROPHILS % (AUTO) 90.4 % (42.2-75.2); PLATELET COUNT 335 10^3/uL (140-440); RDW COEFFICIENT OF VARIATION 16.8 % (11.6-14.8); RED BLOOD COUNT 3.84 10^6/ul (4.20-5.40); WHITE BLOOD COUNT 17.59 K/ul (4.6-10.2)
[2020-01-10 13:34] LABS: PROTHROMBIN TIME 26.7 SEC (9.3-11.0)
[2020-01-10 13:35] LABS: ALBUMIN 3.69 g/dL (3.5-5.0); ALKALINE PHOSPHATASE 139.9 U/L (53-141); ASPARTATE AMINO TRANSFERASE 30.3 U/L (14-36); BILIRUBIN,TOTAL 0.48 mg/dL (0.2-1.3); BLOOD UREA NITROGEN 9.5 mg/dL (7-17); CALCIUM 10.13 mg/dL (8.4-10.2); CARBON DIOXIDE 35.7 mmol/L (22-30.0); CHLORIDE 91.2 mmol/L (98-107); CREATININE 0.76 mg/dL (0.60-1.30); GLUCOSE 113.1 mg/dL (74-106); SODIUM 131.3 mmol/L (134.5-145); TOTAL PROTEIN 7.22 g/dL (6.3-8.2)
[2020-01-10 13:37] VITALS: BMI 16.1
--- NOTE | 2020-01-10 13:40 | PN ---
DATE OF SERVICE: 01/10/2020 SUBJECTIVE: The patient was seen and examined with the Nurse Practitioner. History and Physical is done. The patient is hospitalized with diagnosis of pneumonia. The patient had few admissions lately. Her condition is deteriorating. Her chronic lung disease is practically end stage. The patient is short of breath on minimal exertion. She has some hemoptysis. The patient's organisms are pseudomonas. She is going to be hospitalized on antibiotics, steroids and NEBS. CONDITION: Seems to be stable PROGNOSIS: Poor. TIME SPENT: More than 30 minutes. Plan and coordination of the patient's care discussed in the presence of nurse. ANETA
[2020-01-10 13:54] LABS: ABG BASE EXCESS 6 (-2.0-2.0); ABG HCO3 29.8 (22.0-26.0); ABG PCO2 39.8 mmHg (35-45); ABG PH 7.481 (7.35-7.45); ABG TCO2 31 (22.0-28.0)
[2020-01-10 13:57] LABS: BILIRUBIN,URINE Negative (NEGATIVE); CLARITY,URINE Clear (CLEAR); COLOR,URINE Yellow (YELLOW); GLUCOSE, URINE (UA) Negative (NEGATIVE); KETONES,URINE Negative (NEGATIVE); LEUKOCYTE ESTERASE ,URINE Negative (NEGATIVE); NITRITE,URINE Negative (NEGATIVE); URINE, BLOOD 1+ (NEGATIVE); UROBILINOGEN,URINE 0.2 (0.2)
[2020-01-10] MEDS: VENTOLIN HFA (PER PUFF-WITH SPACER) IH SCH ×2 (13:58→20:10)
[2020-01-10] MEDS: ZITHROMAX 500 MG in SODIUM CHLORIDE 250 ML IV SCH (14:34)
[2020-01-10] MEDS: SOLU-CORTEF 250 MG IVP SCH ×2 (14:34→21:31)
[2020-01-10] MEDS: XANAX PO SCH ×2 (14:34→21:15)
[2020-01-10] MEDS ORDERED: COUMADIN PO SCH ×2 (17:00)
--- NOTE | 2020-01-10 17:09 | CT ---
Exam: CT chest without and with intravenous contrast. Comparison: 12/31/2019. Reason for exam: Short of breath. FINDINGS: Cavitary consolidation in the right upper lobe in the setting of chronic lung disease appe ars more prominent on today's exam when compared to CT imaging performed on 12/31/2019. Old granulomas disease is seen within the mediastinum. Heart is not enlarged. Cystic structure in the partially imaged left kidney is seen measuring up to 5.2 cm. Degenerative disease in the thoracic spine. Ground-glass and ground-glass nodularity is seen throughout the lung parenchyma. Similar appearing consolidation in the right lower lobe with spiculations Similar appearing pleural-based consolidations in the left lung base. No suspicious appearing osteoblastic or osteolytic lesions. Impression: 1. Increasing cavitary consolidation in the right upper lobe may represent cavitary pneumonia or katie plasia. Consider biopsy and clinical correlation. 2. Similar appearing consolidations in the right lower lobe. The differential remains as above. 3. Marked emphysematous disease. 4. Partially imaged right renal hypodensity incompletely evaluated on this exam
[2020-01-10] MEDS: PROTONIX PO SCH (17:24)
[2020-01-10] MEDS: ZOSYN 3.375 GM 3.375 GM in SODIUM CHLORIDE 50 ML IV SCH (17:24)
[2020-01-10] MEDS: COREG PO SCH (17:24)
[2020-01-10] MEDS: ULTRAM PO SCH (21:09)
[2020-01-10] MEDS: MUCINEX PO SCH (21:09)
[2020-01-10] MEDS: SYMBICORT 160-4.5 MCG INHALER IH SCH (21:16)
[2020-01-10] MEDS: BRIMONIDINE 0.1% EACHEYE SCH (21:31)
[2020-01-10] MEDS: [UNRECOGNIZED DRUG - REMARK] NAS SCH (21:31)
[2020-01-11] MEDS: ZOSYN 3.375 GM 3.375 GM in SODIUM CHLORIDE 50 ML IV SCH ×5 (01:19→23:41)
[2020-01-11] MEDS: VENTOLIN HFA (PER PUFF-WITH SPACER) IH SCH ×4 (05:10→19:55)
[2020-01-11 05:19] LABS: BASOPHILS % (AUTO) 0.1 % (0.0-3.0); HEMATOCRIT 32.8 % (37.0-47.0); HEMOGLOBIN 10.6 g/dl (12.0-16.0); IMMATURE GRANULOCYTE # (AUTO) 0.1 (0.0-1.0); IMMATURE GRANULOCYTE % (AUTO) 0.8 % (0.0-5.0); LYMPHOCYTES # (AUTO) 0.7 K/uL (0.60-3.4); MEAN CORPUSCULAR HGB CONC 32.3 (31.8-35.4); MEAN CORPUSCULAR VOLUME 89.6 fl (81.0-99.0); MONOCYTES # (AUTO) 0.3 K/uL (0.4-2.0); MONOCYTES % (AUTO) 2.7 (0-10); NEUTROPHILS % (AUTO) 90.4 % (42.2-75.2); PLATELET COUNT 308 10^3/uL (140-440); RDW COEFFICIENT OF VARIATION 16.7 % (11.6-14.8); RED BLOOD COUNT 3.66 10^6/ul (4.20-5.40); WHITE BLOOD COUNT 12.12 K/ul (4.6-10.2)
[2020-01-11 05:30] LABS: ALANINE AMINOTRANSFERASE 15.2 U/L (0-35); ALBUMIN 3.09 g/dL (3.5-5.0); ALKALINE PHOSPHATASE 107.7 U/L (53-141); ASPARTATE AMINO TRANSFERASE 30.9 U/L (14-36); BILIRUBIN,TOTAL 0.3 mg/dL (0.2-1.3); CALCIUM 9.82 mg/dL (8.4-10.2); CARBON DIOXIDE 34.5 mmol/L (22-30.0); CHLORIDE 95.9 mmol/L (98-107); CREATININE 0.86 mg/dL (0.60-1.30); GLUCOSE 149.7 mg/dL (74-106); SODIUM 133.5 mmol/L (134.5-145); TOTAL PROTEIN 6.37 g/dL (6.3-8.2)
[2020-01-11] MEDS: SOLU-CORTEF 250 MG IVP SCH ×3 (05:37→20:03)
[2020-01-11] MEDS: PROTONIX PO SCH ×2 (06:29→16:45)
[2020-01-11] MEDS: LASIX TAB PO SCH (06:29)
[2020-01-11] MEDS: ULTRAM PO SCH ×2 (08:33→20:51)
[2020-01-11] MEDS: COREG PO SCH ×2 (08:33→16:45)
[2020-01-11] MEDS: XANAX PO SCH ×3 (08:33→20:51)
[2020-01-11] MEDS: MUCINEX PO SCH ×2 (08:33→20:51)
[2020-01-11] MEDS: SYMBICORT 160-4.5 MCG INHALER IH SCH ×2 (08:33→20:56)
[2020-01-11] MEDS: ZITHROMAX 500 MG in SODIUM CHLORIDE 250 ML IV SCH (08:33)
[2020-01-11] MEDS: FERROUS SULFATE PO SCH (08:33)
[2020-01-11] MEDS: BRIMONIDINE 0.1% EACHEYE SCH ×2 (08:34→21:10)
[2020-01-11] MEDS: [UNRECOGNIZED DRUG - REMARK] NAS SCH ×2 (08:35→21:11)
--- NOTE | 2020-01-11 08:49 | PCM.PROG ---
Attending Provider: ATTENDING PROVIDER: Dr. RAISA RASCON This patient is seen with Brooke Wesley, Nurse Practitioner. DATE OF SERVICE: 01/11/20 SUBJECTIVE: This 79 year old /WHITE F was hospitalized 01/10/20. The patient is resting comfortably. She has been up to bedside commode. She continued to complain of cough and shortness of breath. She has had no fever. COVID is still pending. Blood culture and sputum cultures are also pending. REVIEW OF SYSTEMS: CONSTITUTIONAL: No night sweats. No fatigue, malaise, lethargy. No fever or chills. Weakness. HEENT: Eyes: No visual changes. No eye pain. No eye discharge. ENT: No runny nose. No epistaxis. No sinus pain. No odynophagia. No congestion. RESPIRATORY: Cough, no congestion. No hemoptysis. Shortness of breath. CARDIOVASCULAR: No angina symptoms. No CHF symptoms. No atypical chest pain for CAD. No palpitations. No orthopnea.. GASTROINTESTINAL: No abdominal pain. No nausea or vomiting. No diarrhea or constipation. No hematemesis. No hematochezia. GENITOURINARY: No urgency. No frequency. No dysuria. No hematuria. No obstructive symptoms. No discharge. No pain. No significant abnormal bleeding. MUSCULOSKELETAL: No musculoskeletal pain; no joint swelling. NEUROLOGICAL: Awake, alert, oriented to time, place and person. No headache. No neck pain. No syncope. No seizures. No dizziness. PSYCHIATRIC: Not anxious. No depression. No suicidal thoughts. No homicidal thoughts. SKIN: No rash. No lesions. No wounds. ENDOCRINE: No unexplained weight loss. No weight gain. HEMATOLOGIC/LYMPHATIC: No anemia. No purpura. No petechiae. No prolonged or excessive bleeding. No palpable lymph nodes. PHYSICAL EXAMINATION: GENERAL: The patient is awake, alert and oriented, lying in bed in no distress. VITAL SIGNS: Temperature 97.7 F, Pulse 84, Respiratory Rate 20, BP 112/64, Pulse Ox 96% HEENT: Head normocephalic, atraumatic. Eyes: Extraocular muscles are intact. Pupils are equal, round and reactive to light and accommodation. Ears: No lesions. Nose appeared normal. Throat: No exudate or erythema. NECK: Supple. No JVD, no carotid bruit. No lymphadenopathy or thyromegaly. LUNGS: Diminished breath sounds. Coarse with bilateral wheezing. Percussion note normal. Chest symmetrical. HEART: S1, S2, no S3. No murmurs. No cyanosis or clubbing. No ascites. Pulses: Dorsalis pedis and posterior tibial pulses +1 to +2 both sides. ABDOMEN: Soft. Non-tender. Bowel sounds active. No CVA tenderness. No mass felt. EXTREMITIES: No edema. Full range of motion of all extremities, equal. NEUROLOGIC: No focal deficit. Cranial nerves II through XII are grossly intact. No headache, no double vision or headache. SKIN: Not dry. Intact. Turgor-normal. LYMPHATIC: No palpable lymph nodes/no lymphedema. MUSCULOSKELETAL: Normal joints with no swelling. Muscle tone is normal. LAB REVIEW: 01/11/20 05:08 01/11/20 05:08 01/11/20 05:08: Sodium 133.5 L, Potassium 3.82, Chloride 95.9 L, Carbon Dioxide 34.5 H, Anion Gap 6.92, BUN 16.0, Creatinine 0.86, Estimated GFR (MDRD) 64.00, BUN/Creatinine Ratio 18.60, Glucose 149.7 H, Calcium 9.82, Total Bilirubin 0.30, AST 30.9, ALT 15.2, Alkaline Phosphatase 107.7 D, Total Protein 6.37, Albumin 3.09 L, Globulin 3.28, Albumin/Globulin Ratio 0.94 01/11/20 05:08: PT 29.0 H, INR 3.16 01/11/20 05:08: WBC 12.12 H D, RBC 3.66 L, Hgb 10.6 L, Hct 32.8 L, MCV 89.6, MCH 29.0, MCHC 32.3, RDW Coeff of Elie 16.7 H, Plt Count 308, Immature Gran % (Auto) 0.8, Neut % (Auto) 90.4 H, Lymph % (Auto) 6.0 L, [place] % (Auto) 2.7, Eos % (Auto) 0.0, Baso % (Auto) 0.1, Neut # (Auto) 11.0 H, Lymph # (Auto) 0.7, [place] # (Auto) 0.3 L, Eos # (Auto) 0.0, Baso # (Auto) 0.0, Immature Gran # (Auto) 0.1 01/10/20 13:51: Urine Color Yellow, Urine Clarity Clear, Urine pH 7.0, Ur Specific [place] 1.015, Urine Protein Negative, Urine Glucose (UA) Negative, Urine Ketones Negative, Urine Blood 1+ H, Urine Nitrite Negative, Urine Bilirubin Negative, Urine Urobilinogen 0.2, Ur Leukocyte Esterase Negative, Urine Microscopic RBC 5-10, Ur Squamous Epith Cells 10-20 01/10/20 13:15: Sodium 131.3 L, Potassium 3.67, Chloride 91.2 L, Carbon Dioxide 35.7 H, Anion Gap 8.07, BUN 9.5, Creatinine 0.76, Estimated GFR (MDRD) 74.00, BUN/Creatinine Ratio 12.50, Glucose 113.1 H, Calcium 10.13, Total Bilirubin 0.48, AST 30.3, ALT 19.0, Alkaline Phosphatase 139.9, Total Protein 7.22, Albumin 3.69, Globulin 3.53, Albumin/Globulin Ratio 1.04 01/10/20 13:15: PT 26.7 H, INR 2.89 01/10/20 13:15: WBC 17.59 H, RBC 3.84 L, Hgb 11.2 L, Hct 34.4 L, MCV 89.6, MCH 29.2, MCHC 32.6, RDW Coeff of Elie 16.8 H, Plt Count 335, Immature Gran % (Auto) 0.6, Neut % (Auto) 90.4 H, Lymph % (Auto) 3.0 L, [place] % (Auto) 5.5, Eos % (Auto) 0.2, Baso % (Auto) 0.3, Neut # (Auto) 15.9 H, Lymph # (Auto) 0.5 L, [place] # (Auto) 1.0, Eos # (Auto) 0.0, Baso # (Auto) 0.1, Immature Gran # (Auto) 0.1 01/10/20 12:52: Puncture Site Rrad, O2 Saturation 94.0 L, ABG pH 7.481 H, ABG pCO2 39.8, ABG pO2 65.0 L, ABG HCO3 29.8 H, ABG Total CO2 31 H, ABG Base Excess 6 H, [place] Test +, O2 Delivery Device Nc, Oxygen Liter Flow 2.00 ASSESSMENT: Please see below. 1. Shortness of breath 2. Acute pneumonitis 3. Generalized weakness 4. Severe COPD PLAN: 1. COVID test pending 2. Continue IV antibiotics 3. Fall precautions 4. Hold Coumadin 5. CBC and CMP PT INR in the morning Plan and coordination of the patient's care discussed in the presence of Curatorial Specialist and nurse. SCRIBED BY: LEE RODRIGUEZ Photo Lab Technician scribed while in presence of service performed by Dr. Rascon/Brooke Wesley APRN on 01/11/20 ([id number])
--- NOTE | 2020-01-11 13:16 | PN ---
DATE OF SERVICE: 01/11/2020 SUBJECTIVE: The patient was seen and examined with the Nurse Practitioner. The patient is stable. She is not short of breath at rest but with minimal exertion she gets short of breath. She is afebrile. Antibiotics, steroids and NEBS. CONDITION: Stable PROGNOSIS: Poor TIME SPENT: More than 30 minutes. Plan and coordination of the patient's care discussed in the presence of nurse. ANETA
--- NOTE | 2020-01-11 13:45 | HP ---
DATE OF SERVICE: 01/10/2020 REASON FOR HOSPITALIZATION/HISTORY OF PRESENT ILLNESS: No signs or symptoms of CHF/CAD. The patient complains of feeling bad times two days. Coughing up yellow/green bloody sputum. PAST MEDICAL HISTORY: Severe COPD History of right lower lobe pneumonia Chronic bronchitis Pulmonary fibrosis Polyarthritis GERD Anxiety History of DVT/PE on Coumadin COPD 06/22 Dr. Peterson-O2 dependant Pleuritic pain left lung Status post cataract surgery 07/07 Cervical radiculopathy Lung nodules resolved-Dr. Peterson PAST SURGICAL HISTORY: Hysterectomy REVIEW OF SYSTEMS: CONSTITUTIONAL: No fever, Fatigue. HEENT: No sinus drainage, no sore throat. RESPIRATORY: Cough, no congestion. CARDIOVASCULAR: No atypical chest pain for coronary artery disease. No angina, CHF symptoms, palpitations. Shortness of breath. GASTROINTESTINAL: No melena or abdominal pain. No GERD. GENITOURINARY: No hematuria, no prostatism, no polyuria. RENEWABLE ENERGY BROKER: No blackout, no dizziness, no headache, no double vision. MUSCULOSKELETAL: Osteoarthritis pain, no joint swelling. ENDOCRINE: No weight loss, no weight gain. SKIN: Not dry, no rash. PSYCHIATRIC: Not anxious, no depression, no suicidal thoughts, no homicidal thoughts. Normal behavior. SOCIAL HISTORY: Marital Status: . Alcohol Usage: No. Tobacco Usage: Quit. FAMILY HISTORY: Father - Liver disease Mother - COPD Brother one CA of liver Sister one Kidney disease MEDICATIONS: Coumadin 3mg Daily Xanax 0.25mg TID Prednisone 5mg PO daily Protonix 40mg BID Coreg 3.125mg BID Advair 250-50 BID Nasal spray BID Combivent inhaler Albuterol NEB QID Phenergan with codeine syrup QID Eye drops BID Potassium BID O2 Iron daily DUO NEB QID Mucinex 600mg BID Lasix 20mg daily Tramadol 50mg BID Clindamycin 300mg QID ALLERGIES: Cipro Hydrocodone GI cocktail PHYSICAL EXAMINATION: V/S: Pulse 102, blood pressure 122/68, temperature 98, pulse ox 94% on 3 liters on nasal oxygen, height 5'7 GENERAL APPEARANCE: Oriented times three. HEENT: Normal. NECK: No JVP, no bruits. RESPIRATORY: Decreased breath sounds severely diminished coarse inspiratory/expiratory wheezing bilaterally. CARDIOVASCULAR: S1, S2, no S3, no murmur. No cyanosis, clubbing. No ascites. GI/ABDOMEN: No tenderness. Bowel sounds are active. EXTREMITIES: edema, pulses +1, equal. RENEWABLE ENERGY BROKER: Deep tendon reflexes, sensory, motor and gait all normal. RECTAL/PELVIC/PROSTATE: . INR 2-6 ASSESSMENT: 1. Shortness of breath 2. Acute pneumonitis 3. Generalized weakness 4. Severe COPD 5. History of right lower lobe pneumonia 6. Chronic bronchitis 7. Pulmonary fibrosis 8. Polyarthritis 9. GERD 10.Anxiety 11.History of DVT/PE on Coumadin 12.COPD 3/4 Dr. Peterson-O2 dependant 13.Pleuritic pain left lung 14. Status post cataract surgery 07/07 15.Cervical radiculopathy 16. Lung nodules resolved-Dr. Peterson PLAN: 1. Admit COVID protocol 2. Routine telemetry orders-No cardiac markers 3. COVID-19 test- LAB [facility] 4. Special care-COVID pending 5. CBC, CMP, PT, INR daily and now 6. Chest CT with and without 7. Sputum culture 8. Blood culture times 2 9. ABG on 3 liters nasal canula now 10.O2 PRN 11.Zosyn IV-Pharmacy to dose 12.Zithromax 500mg IV daily times three 13.Solu-Cortef 125 IV Q 8 hours 14.Albuterol QID 15.Symbicort BID 16.Regular diet 17.Continue Home Medications TIME SPENT: More than 70 minutes. MTDD
[2020-01-12] MEDS: VENTOLIN HFA (PER PUFF-WITH SPACER) IH SCH ×4 (04:50→19:03)
[2020-01-12 05:29] LABS: BASOPHILS % (AUTO) 0.2 % (0.0-3.0); HEMATOCRIT 32.9 % (37.0-47.0); HEMOGLOBIN 10.6 g/dl (12.0-16.0); IMMATURE GRANULOCYTE # (AUTO) 0.1 (0.0-1.0); IMMATURE GRANULOCYTE % (AUTO) 0.7 % (0.0-5.0); LYMPHOCYTES # (AUTO) 1.1 K/uL (0.60-3.4); LYMPHOCYTES % (AUTO) 5.5 (10.0-50.0); MEAN CORPUSCULAR HGB CONC 32.2 (31.8-35.4); MEAN CORPUSCULAR VOLUME 90.4 fl (81.0-99.0); MONOCYTES # (AUTO) 0.6 K/uL (0.4-2.0); MONOCYTES % (AUTO) 2.8 (0-10); NEUTROPHILS # (AUTO) 17.6 K/ul (2.0-6.9); NEUTROPHILS % (AUTO) 90.8 % (42.2-75.2); PLATELET COUNT 325 10^3/uL (140-440); RDW COEFFICIENT OF VARIATION 16.9 % (11.6-14.8); RED BLOOD COUNT 3.64 10^6/ul (4.20-5.40); WHITE BLOOD COUNT 19.39 K/ul (4.6-10.2)
[2020-01-12 05:40] LABS: PROTHROMBIN TIME 20.2 SEC (9.3-11.0)
[2020-01-12 05:43] LABS: ALANINE AMINOTRANSFERASE 14.1 U/L (0-35); ALBUMIN 3.08 g/dL (3.5-5.0); ALKALINE PHOSPHATASE 93.3 U/L (53-141); ASPARTATE AMINO TRANSFERASE 24.7 U/L (14-36); BILIRUBIN,TOTAL 0.21 mg/dL (0.2-1.3); BLOOD UREA NITROGEN 16.8 mg/dL (7-17); CALCIUM 10.09 mg/dL (8.4-10.2); CARBON DIOXIDE 33.6 mmol/L (22-30.0); CHLORIDE 98.7 mmol/L (98-107); CREATININE 0.83 mg/dL (0.60-1.30); GLUCOSE 124.9 mg/dL (74-106); SODIUM 136.2 mmol/L (134.5-145); TOTAL PROTEIN 6.35 g/dL (6.3-8.2)
[2020-01-12] MEDS: SOLU-CORTEF 250 MG IVP SCH ×3 (06:13→20:45)
[2020-01-12] MEDS: ZOSYN 3.375 GM 3.375 GM in SODIUM CHLORIDE 50 ML IV SCH ×3 (06:14→17:08)
[2020-01-12] MEDS: PROTONIX PO SCH ×2 (06:14→17:07)
[2020-01-12] MEDS: LASIX TAB PO SCH (06:14)
[2020-01-12] MEDS: BRIMONIDINE 0.1% EACHEYE SCH ×2 (08:47→20:51)
[2020-01-12] MEDS: SYMBICORT 160-4.5 MCG INHALER IH SCH ×2 (08:48→20:51)
[2020-01-12] MEDS: ULTRAM PO SCH ×2 (08:49→20:50)
[2020-01-12] MEDS: COREG PO SCH ×2 (08:49→17:07)
[2020-01-12] MEDS: FERROUS SULFATE PO SCH (08:49)
[2020-01-12] MEDS: MUCINEX PO SCH ×2 (08:49→20:50)
[2020-01-12] MEDS: XANAX PO SCH ×3 (08:49→20:50)
[2020-01-12] MEDS: [UNRECOGNIZED DRUG - REMARK] NAS SCH ×2 (08:50→20:51)
[2020-01-12] MEDS: ZITHROMAX 500 MG in SODIUM CHLORIDE 250 ML IV SCH (08:50)
[2020-01-12] MEDS: K-DUR PO SCH ×4 (09:26→20:50)
[2020-01-12] MEDS ORDERED: COUMADIN PO SCH (17:00)
[2020-01-13] MEDS: ZOSYN 3.375 GM 3.375 GM in SODIUM CHLORIDE 50 ML IV SCH ×3 (00:31→11:43)
[2020-01-13] MEDS: VENTOLIN HFA (PER PUFF-WITH SPACER) IH SCH ×3 (04:55→13:59)
[2020-01-13] MEDS: SOLU-CORTEF 250 MG IVP SCH (05:40)
[2020-01-13 05:49] LABS: BASOPHILS % (AUTO) 0.1 % (0.0-3.0); HEMATOCRIT 33.1 % (37.0-47.0); HEMOGLOBIN 10.2 g/dl (12.0-16.0); IMMATURE GRANULOCYTE # (AUTO) 0.1 (0.0-1.0); IMMATURE GRANULOCYTE % (AUTO) 0.7 % (0.0-5.0); LYMPHOCYTES # (AUTO) 0.9 K/uL (0.60-3.4); LYMPHOCYTES % (AUTO) 6.5 (10.0-50.0); MEAN CORPUSCULAR HGB CONC 30.8 (31.8-35.4); MEAN CORPUSCULAR VOLUME 91.4 fl (81.0-99.0); MONOCYTES # (AUTO) 0.4 K/uL (0.4-2.0); NEUTROPHILS # (AUTO) 12.5 K/ul (2.0-6.9); NEUTROPHILS % (AUTO) 89.7 % (42.2-75.2); PLATELET COUNT 317 10^3/uL (140-440); RDW COEFFICIENT OF VARIATION 17.1 % (11.6-14.8); RED BLOOD COUNT 3.62 10^6/ul (4.20-5.40); WHITE BLOOD COUNT 13.95 K/ul (4.6-10.2)
[2020-01-13] MEDS: LASIX TAB PO SCH (05:53)
[2020-01-13] MEDS: PROTONIX PO SCH (05:53)
[2020-01-13] MEDS: K-DUR PO SCH (05:57)
[2020-01-13 06:00] LABS: PROTHROMBIN TIME 18.8 SEC (9.3-11.0)
[2020-01-13 06:06] LABS: ALANINE AMINOTRANSFERASE 16.8 U/L (0-35); ALBUMIN 2.96 g/dL (3.5-5.0); ALKALINE PHOSPHATASE 94.8 U/L (53-141); ASPARTATE AMINO TRANSFERASE 32.8 U/L (14-36); BILIRUBIN,TOTAL 0.22 mg/dL (0.2-1.3); BLOOD UREA NITROGEN 18.7 mg/dL (7-17); CALCIUM 10.13 mg/dL (8.4-10.2); CARBON DIOXIDE 33.3 mmol/L (22-30.0); CREATININE 0.8 mg/dL (0.60-1.30); GLUCOSE 108.4 mg/dL (74-106); TOTAL PROTEIN 5.99 g/dL (6.3-8.2)
[2020-01-13] MEDS ORDERED: LASIX IVP STA (08:11)
[2020-01-13] MEDS ORDERED: K-DUR PO SCH (08:30)
[2020-01-13] MEDS ORDERED: PREDNISONE PO SCH (08:30)
[2020-01-13] MEDS: SYMBICORT 160-4.5 MCG INHALER IH SCH (08:59)
[2020-01-13] MEDS: MUCINEX PO SCH (09:00)
[2020-01-13] MEDS: FERROUS SULFATE PO SCH (09:00)
[2020-01-13] MEDS: XANAX PO SCH (09:01)
[2020-01-13] MEDS: COREG PO SCH (09:01)
[2020-01-13] MEDS: ULTRAM PO SCH (09:01)
--- NOTE | 2020-01-13 09:31 | PN ---
DATE OF SERVICE: 01/12/2020 SUBJECTIVE: 79 year old white female hospitalized with acute pneumonitis, bilateral with shortness of breath and hemoptysis. The patient's condition seems to have improved. No hemoptysis noted. She is not short of breath with talking anymore. Her is present in the room. He is happy with her progress. REVIEW OF SYSTEMS: CONSTITUTIONAL: No night sweats. Fatigue and tired feeling, seems to be improving. No fever or chills. HEENT: Eyes: No visual changes. No eye pain. No eye discharge. ENT: No runny nose. No epistaxis. No sinus pain. No sore throat. No odynophagia. No congestion. RESPIRATORY: Mild cough, no congestion. No hemoptysis. No shortness of breath. CARDIOVASCULAR: No angina symptoms. No CHF symptoms. No atypical chest pain for CAD. No palpitations. No PND. No orthopnea. GASTROINTESTINAL: No abdominal pain. No nausea or vomiting. No diarrhea or constipation. No hematemesis. No hematochezia. Appetite seems to be improving. GENITOURINARY: No urgency. No frequency. No dysuria. No hematuria. No obstructive symptoms. No discharge. No pain. No significant abnormal bleeding. MUSCULOSKELETAL: No musculoskeletal pain; no joint swelling. NEUROLOGICAL: No headache. No neck pain. No syncope. No seizures. No dizziness. PSYCHIATRIC: Not anxious. No depression. No suicidal thoughts. No homicidal thoughts. SKIN: No rash. No lesions. No wounds. ENDOCRINE: No unexplained weight loss. No weight gain. HEMATOLOGIC/LYMPHATIC: No anemia. No purpura. No petechiae. No prolonged or excessive bleeding. No palpable lymph nodes. PHYSICAL EXAMINATION: VITAL SIGNS: Temperature 98, pulse 78, respiratory rate 20, blood pressure 134/60 and pulse ox 96% HEENT: Head normocephalic, atraumatic. Eyes: Extraocular muscles are intact. Pupils are equal, round and reactive to light and accommodation. Ears: No lesions. Nose appeared normal. Throat: No exudate or erythema. NECK: Supple. No JVD, no carotid bruit. No lymphadenopathy or thyromegaly. LUNGS: Decreased breath sounds but clear to auscultation. Percussion note normal. Chest symmetrical. HEART: S1, S2, no S3. No murmurs. No cyanosis or clubbing. No ascites. Pulses: Dorsalis pedis and posterior tibial pulses +1 to +2 bilaterally. ABDOMEN: Soft. Nontender. Bowel sounds active. No CVA tenderness. No mass felt. EXTREMITIES: No edema. Full range of motion of all extremities, equal. NEUROLOGIC: No focal deficit. Cranial nerves II through XII are grossly intact. No headache, no double vision or headache. SKIN: Not dry. Intact. Turgor - normal. LYMPHATIC: No palpable lymph nodes/no lymphedema. MUSCULOSKELETAL: Normal joints with no swelling. Muscle tone is normal. LABS: Hgb 10.6, hct 32, WBC 19,000 normal differential, creatinine 0.6, BUN 16, potassium 3 ASSESSMENT: 1. Acute pneumonitis seems to be improving. Has decreased breath sounds bilaterally. Air entry is a lot better. 2. Hemoptysis has resolved 3. COVID is negative 4. Anemia, chronic 5. Severe chronic lung disease 6. Hypokalemia PLAN: 1. Given K-dur 20meq five times a day for a could of days 2. Monitor the telemetry with Potassium 3. CBC with differential 4. Continue all antibiotics 5. 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 The patient may end up in the swing bed. TIME SPENT: More than 30 minutes. Plan and coordination of the patient's care discussed in the presence of nurse. ANETA
[2020-01-13] MEDS: [UNRECOGNIZED DRUG - REMARK] NAS SCH (09:57)
[2020-01-13] MEDS ORDERED: BRIMONIDINE TARTRATE 0.2% OPTH SOL EACHEYE SCH (10:00)
[2020-01-13] MEDS: BRIMONIDINE 0.1% EACHEYE SCH (10:02)
--- NOTE | 2020-01-13 13:17 | RS.PTINEVL ---
Subjective - Patient information Date of Evaluation: 01/13/20 Date of Arrival on Unit: 01/10/20 Admitted From:: Home Diagnosis: pneumonia Usual Living Arrangement: With Spouse Living Arrangement Comments: lives with , dtrs are also supportive Home Environment: House Medical History: COPD, Arthritis Medical History Comments:: anxiety, GERD, PE, CAD, gout LATEX ALLERGY?: No Surgical History: Hysterectomy Surgical History Comments:: appey Medications: see chart Subjective Information/ Patient Comments:: pt states that she feels very weak. Reports she had 2 falls at home just "blacked out". She states she doesn't feel she can walk very far but is willing to try. - Level of function Prior to this admission, the patient could do the following:: Independent Selfcare, Independent ADL's, Independent Ambulation Abilities prior to this admission: pt was beginning to have to let her help her with ADL's and amb. Current Level of Function: Partially Dependent Current Equipment Used at Home: OXYGEN, NEBULIZER, ROLLATOR, SHOWER CHAIR, QUAD CANE Pain Assessement - Location all over Description: Aching Pain Behavior: Facial Grimacing Interventions - Objective Patient Orientation: Person, Place, Time, Situation Current Interventions: IV's, Oxygen, Telemetry Observation: pt seen sup in bed. Range of Motion - ROM Right Upper Extremity AROM: WFL's Left Upper Extremity AROM: WFL's Right Lower Extremity AROM: WFL's Left Lower Extremity AROM: WFL's Muscle Strength - Muscle Strength Right Upper Extremity Strength: Mild Weakness (grossly 4-/5) Left Upper Extremity Strength: Mild Weakness (grossly 4-/5) Right Lower Extremity Strength: Mild Weakness (hip flex 4-/5, knee flex/ext 4/5, ankle DF/PF 4/5) Left Lower Extremity Strength: Mild Weakness (hip flex 4-/5, knee flex/ext 4/5, ankle DF/PF 4/5) Sensation - Sensation Right Upper Extremity Sensation: Intact/Normal Left Upper Extremity Sensation: Intact/Normal Right Lower Extremity Sensation: Intact/Normal Left Lower Extremity Sensation: Intact/Normal Palpation Palpation Findings: None/Normal Balance - Sitting Balance and Reactions Static Sitting Balance: Normal Dynamic Sitting Balance: Good - Standing Balance and Reactions Static Standing Balance: Fair Dynamic Standing Balance: Poor Standing Equilibrium Reactions: Delayed Left, Delayed Right Standing Protective Reactions: Delayed Left, Delayed Right Functional Mobility - Bed Mobility Rolling R/L: Independent Supine to Sit: Independent Sit to Supine: Independent - Transfers Sit to Stand: CGA Stand to Sit: CGA - Safety Awareness Safety Awareness: Good MARYJO INDEX SCORE: n/a Ambulation - Ambulation Assistive Device Used: Rolling Walker Orthotic/Prosthetic Device: No Distance: 30ft Assistance needed with Ambulation: CGA Quality of Ambulation: pt amb with 3 liters O2. Gait Deviations: Forward posture, Short stride Factors Affecting Ambulation: Decreased Balance, Breathing/O2 Saturation, Weakn ess, Limited Endurance Treatment time - Time with patient Length of Evaluation: 21 Total treatment time: 26 Patient Education - Education Patient Education: Home Exercise Program, Education of Plan of Care Teaching Recipient: Patient Teaching Methods: Discussion Comments: discussion regarding POC Assessment - Assessment Problem List:: Decreased level of function, Requires training/education, Decreased safety/Risk of falls, Weakness Rehab Potential: Fair Further Therapy Indicated?: Yes Candidate for Swing Bed for Therapy Services?: Feel pt may not be a candidate for swing bed for therapy due to higher functional level and pt with limited endurance which would effect pt ability to tolerate mins needed for swing. Evaluation Complexity: HISTORY: Medium, EXAM OF BODY SYSTEMS: Medium, CLINICAL PRESENTATION: Medium, CLINICAL DECISION MAKING: Medium Patient's Goal(s): Return home. Short Term Goals GOAL #1: pt transfer sit to/from stand SBA Goal to be met by: 01/16/20 GOAL #2: pt amb 75ft with rwx with CGA no LOB with O2 Goal to be met by: 01/16/20 GOAL #3: Improve dyn stand balance fair+ Goal to be met by: 01/16/20 GOAL #4: . Comments:: no rest period required today GOAL #5: . Traffic Line Painter Goals GOAL #1: Transfer sit to/from stand independently Goal to be met by: 01/18/20 GOAL #2: pt amb functional household distances w rwx and o2 independently Goal to be met by: 01/18/20 GOAL #3: Improve BLE strength 4 to 4+/5 Goal to be met by: 01/18/20 Plan Plan of Care: Therapeutic EX, Therapeutic Activity Other:: gait training Frequency of Treatment: 1-2 X day, as tolerated Duration of Treatment: 5 days Anticipated Discharge Destination: Home Treatment Diagnosis (ICD 10 Codes): difficulty walking r 26.2. Impaired balance R 26.81. risk of falls z91.81 Has the Physician been added for Co-signature?: Yes
--- NOTE | 2020-01-13 14:54 | CM.DICTOOL ---
ADMISSION: 01/10/20 11:58 DISCHARGE: 2019 DATE OF SERVICE: 01/13/20 FINAL DIAGNOSIS ACUTE PNEUMONITIS GENERALIZED MUSCLE WEAKNESS SEVERE COPD HYPOKALEMIA HX: SEVERE COPD, OXYGEN DEPENDENT ANEMIA ACUTE RESPIRATORY FAILURE/ HAS CHRONIC RESPIRATORY FAILURE RECURRENT PNEUMONIA PULMONARY FIBROSIS PULMONARY NODULE- FOLLOWED BY DR. 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 GERD OSTEOPENIA TOBACCO USE- QUIT SMOKING GREATER THAN TEN YEARS AGO DEGENERATIVE DISK DISEASE LOW BMI HYPERGLYCEMIA OSTEOARTHRITIS, RT SHOULDER GOUT SURGICAL HISTORY: STATUS POST HYSTERECTOMY STATUS POST APPENDECTOMY LT CATARACT EXTRACTION LAST VITALS Temp Pulse Resp BP Pulse Ox 97.7 F 77 17 136/68 96 01/13/20 05:45 01/13/20 05:45 01/13/20 05:45 01/13/20 05:45 01/13/20 10:00 TAKE THESE MEDICATIONS AT HOME Acetaminophen (Acetaminophen 325 Mg Tablet) 650 mg PO Q4H PRN PRN Reason: Headache Albuterol Sulfate (Albuterol Sulfate (Ventolin Hfa) 18 Gm 1 Puff With Spacer) 2 puff IH RTQID [facility] Last Admin: 01/13/20 10:01 Dose: 2 puff Documented by: Alprazolam (Alprazolam 0.25 Mg Tablet) 0.25 mg PO TID [facility] Last Admin: 01/13/20 09:01 Dose: 0.25 mg Documented by: Brimonidine Tartrate (Brimonidine Tartrate 0.2% 5 Ml Btl) 1 drop EACHEYE BID [facility] Last Admin: 01/13/20 09:54 Dose: 1 drop Documented by: Budesonide/Formoterol Fumarate (Budesonide/Formoterol Fumarate 160/4.5 Mcg Inhaler) 2 puff IH BID [facility] Last Admin: 01/13/20 08:59 Dose: 2 puff Documented by: Carvedilol (Carvedilol 3.125 Mg Tablet) 3.125 mg PO BIDWM [facility] Last Admin: 01/13/20 09:01 Dose: 3.125 mg Documented by: Ferrous Sulfate (Ferrous Sulfate 324 Mg Tablet.) 324 mg PO DAILY [facility] Last Admin: 01/13/20 09:00 Dose: 324 mg Documented by: Furosemide (Furosemide 20 Mg Tablet) 20 mg PO QDAC [facility] Last Admin: 01/13/20 05:53 Dose: 20 mg Documented by: Guaifenesin (Guaifenesin 600 Mg Tablet.Er) 600 mg PO Q12HR [facility] Last Admin: 01/13/20 09:00 Dose: 600 mg Documented by: Piperacillin Sod/Tazobactam (Sod 3.375 gm/ Sodium Chloride) 50 mls @ 50 mls/hr IV Q6HR [facility] Last Admin: 01/13/20 11:43 Dose: 50 mls/hr Documented by: Non-Formulary Medication (Ipratropium [place]) 2 spray EDWIN BID [facility] Last Admin: 01/13/20 09:57 Dose: Not Given Documented by: Pantoprazole Sodium (Pantoprazole Sodium 40 Mg Tablet.Dr) 40 mg PO BIDAC [facility] Last Admin: 01/13/20 05:53 Dose: 40 mg Documented by: Potassium Chloride (Potassium Chloride 20 Meq Tab) 20 meq PO DAILYWM [facility] Last Admin: 01/13/20 09:00 Dose: 20 meq Documented by: Prednisone (Prednisone 20 Mg Tablet) 20 mg PO DAILYWM [facility] Last Admin: 01/13/20 09:00 Dose: 20 mg Documented by: Promethazine HCl/Codeine (Promethazine/Codeine Syrup 6.25/10 Mg/5 Ml Disp.Syringe) 10 ml PO Q6H PRN PRN Reason: Cough Last Admin: 01/12/20 18:22 Dose: 10 ml Documented by: Sodium Chloride (0.9% Sodium Chloride 10 Ml Disp.Syrin) 1 syr IVF Q8HR [facility] Last Admin: 01/13/20 13:07 Dose: 1 syr Documented by: Tramadol HCl (Tramadol Hcl 50 Mg Tablet) 50 mg PO BID [facility] Last Admin: 01/13/20 09:01 Dose: 50 mg Documented by: Warfarin Sodium (Warfarin Sodium 3 Mg Tablet) 3 mg PO QPM [facility] Last Admin: 01/12/20 17:08 Dose: 3 mg Documented by: ALLERGIES ciprofloxacin [From Cipro] Adverse Reaction (Intermediate, Verified 12/31/19 13:03) acetylcysteine [From Mucomyst] Adverse Reaction (Verified 12/31/19 13:03) hydrocodone Adverse Reaction (Verified 12/31/19 13:03) Abdominal Pain gi cocktail Adverse Reaction (Uncoded 06/01/19 14:27) mucomyst Adverse Reaction (Uncoded 11/17/19 08:38) Head pressure DISCONTINUED MEDICATIONS NONE NEW PRESCRIPTIONS: NONE SMOKING: FORMER SMOKER DISEASE SPECIFIC EDUCATION: ACUTE PNEMONITIS SOPo COVID 19 LAB REVIEW: 01/13/20 05:38 01/13/20 05:38 01/13/20 05:38: Sodium 137.0, Potassium 3.95, Chloride 102.0, Carbon Dioxide 33.3 H, Anion Gap 5.65, BUN 18.7 H, Creatinine 0.80, Estimated GFR (MDRD) 70.00, BUN/Creatinine Ratio 23.37, Glucose 108.4 H, Calcium 10.13, Total Bilirubin 0.22, AST 32.8, ALT 16.8, Alkaline Phosphatase 94.8, Total Protein 5.99 L, Albumin 2.96 L, Globulin 3.03, Albumin/Globulin Ratio 0.97 01/13/20 05:38: PT 18.8 H, INR 2.00 01/13/20 05:38: WBC 13.95 H D, RBC 3.62 L, Hgb 10.2 L, Hct 33.1 L, MCV 91.4, MCH 28.2, MCHC 30.8 L, RDW Coeff of Elie 17.1 H, Plt Count 317, Immature Gran % (Auto) 0.7, Neut % (Auto) 89.7 H, Lymph % (Auto) 6.5 L, [place] % (Auto) 3.0, Eos % (Auto) 0.0, Baso % (Auto) 0.1, Neut # (Auto) 12.5 H, Lymph # (Auto) 0.9, [place] # (Auto) 0.4, Eos # (Auto) 0.0, Baso # (Auto) 0.0, Immature Gran # (Auto) 0.1 PLAN: DISCHARGE TODAY TO [facility] SWING BED ACTIVITY: UP WITH WALKER AND SBA PT AND OT EVALUATION CONTINUE OXYGEN AT 3 L/M PER NASAL CANNULA CONTINUOS, AND PROPER PRECAUTION DIET: REGULAR WITH ADEQUATE FLUIDS BOOST PLUS 240 ML BID ( 1000 , 1400 ) CBC AND CMP EVERY THREE DAYS, START Friday01/16/2020 STOOL FOR C-DIFF ( IF NOT COLLECTED AT INPATIENT) PT/INR DAILY WEIGH DAILY MD FOLLOW UP: DR RASCON/ JAZZMINE CHEW APRN / TERESA LYONS APRN WILL SEE ON ROUNDS DR. OLIVAS, WIRELINE SUPERVISOR, TO RE- SCHEDULED AFTER SWING BED CODE STATUS : DO NOT RESUSCUTATE MRS STEINBERG REMAINS ALERT AND ORIENTED X 4. SHE IS PLEASANT AND IN NO DISTRESS. SHE USES A ROLLATOR TO AMBULATE TO BATHROOM AND CONTINUES TO REFUSE A STANDARD WHEELED WALKER. SHE IS DEPENDENT OF OXYGEN AND IS NOT ABLE TO WALK FAR WITHOUT SEVERE DYSPNEA. SHE HAS BEEN TRANSFERRING HERSELF TO/FROM [facility] [place] AND MANAGES WELL. SHE IS ORTHOPNEIC. LUNGS COURSE AND DIMINISHED. CONTINUES TO HAVE THICK YELLOW SPUTUM PRODUCTION AND AT TIMES HEMOPTYSIS, HOWEVER IS BETTER. SHE ALSO GETS OUT OF BREATH EATING. REMARKABLY, FOR NOW, NUTRITIONAL AND FLUID INTAKE ARE FAIR. SKIN REMAINS WARM, INTACT AND DRY. CONTINENT OF BOWEL AND BLADDER NOW, HOWEVER INCONTINENCE EPISODES WHEN SHE HAS ACUTE WEAK EPISODES. SHE IS STARTING TO BREATH BETTER AND HAVING IMPROVED ACTIVITY TOLERANCE. STILL NEEDS SEVERAL MORE DAYS OF IV ANTIBIOTICS. PT TO FOLLOW WITH POC FOR STRENGTHENING AND GAIT TRAINING. WILL DISCHARGE INPATIENT AND ADMIT TO SWING BED. MD JAZZMINE SMILEY APRN ALYCE HANNAN, APRN
[2020-01-13 15:22] VITALS: BP 116/64; TEMP 98.1
--- NOTE | 2020-01-13 15:52 | DI ---
EXAM: Chest two views HISTORY: Shortness of breath COMPARISON: 12/31/2019 TECHNIQUE: Two views of the chest were performed FINDINGS: Normal heart size. Normal mediastinal contour. Stable emphysematous changes with right gr eater than left apical scarring. Mild decreased in the right basilar consolidation. No pneumothorax or pleural effusion. No acute osseous abnormality. IMPRESSION: 1. Persistent but decreased right basilar consolidation likely representing pneumonia. Follow-up to resolution recommended. 2. Emphysema.
--- NOTE | 2020-01-14 10:51 | PN ---
DATE OF SERVICE: 01/13/2020 SUBJECTIVE: 79 year old white female hospitalized with pneumonitis. The patient's condition has improved. She is not short of breath at rest but to go to the bathroom with help still gets short of breath with minimal exertion. No fever or chills. REVIEW OF SYSTEMS: CONSTITUTIONAL: No night sweats. No fatigue, malaise, lethargy. No fever or chills. HEENT: Eyes: No visual changes. No eye pain. No eye discharge. ENT: No runny nose. No epistaxis. No sinus pain. No sore throat. No odynophagia. No congestion. RESPIRATORY: No cough, no congestion. No hemoptysis. No shortness of breath. CARDIOVASCULAR: No angina symptoms. No CHF symptoms. No atypical chest pain for CAD. No palpitations. No PND. No orthopnea. GASTROINTESTINAL: No abdominal pain. No nausea or vomiting. No diarrhea or constipation. No hematemesis. No hematochezia. GENITOURINARY: No urgency. No frequency. No dysuria. No hematuria. No obstructive symptoms. No discharge. No pain. No significant abnormal bleeding. MUSCULOSKELETAL: No musculoskeletal pain; no joint swelling. NEUROLOGICAL: No headache. No neck pain. No syncope. No seizures. No dizziness. PSYCHIATRIC: Not anxious. No depression. No suicidal thoughts. No homicidal thoughts. SKIN: No rash. No lesions. No wounds. ENDOCRINE: No unexplained weight loss. No weight gain. HEMATOLOGIC/LYMPHATIC: No anemia. No purpura. No petechiae. No prolonged or excessive bleeding. No palpable lymph nodes. PHYSICAL EXAMINATION: VITAL SIGNS: Temperature 97.7, pulse 77, respiratory 17, blood pressure 136/68, pulse ox 98%. HEENT: Head normocephalic, atraumatic. Eyes: Extraocular muscles are intact. Pupils are equal, round and reactive to light and accommodation. Ears: No lesions. Nose appeared normal. Throat: No exudate or erythema. NECK: Supple. No JVD, no carotid bruit. No lymphadenopathy or thyromegaly. LUNGS:Decreased breath sound but good air entry better than before with practically no wheezing. Percussion note normal. Chest symmetrical. HEART: S1, S2, no S3. No murmurs. No cyanosis or clubbing. No ascites. Pulses: Dorsalis pedis and posterior tibial pulses +1 to +2 bilaterally. ABDOMEN: Soft. Nontender. Bowel sounds active. No CVA tenderness. No mass felt. EXTREMITIES: No edema. Full range of motion of all extremities, equal. NEUROLOGIC: No focal deficit. Cranial nerves II through XII are grossly intact. No headache, no double vision or headache. SKIN: Not dry. Intact. Turgor - normal. LYMPHATIC: No palpable lymph nodes/no lymphedema. MUSCULOSKELETAL: Normal joints with no swelling. Muscle tone is normal. LABS: Hgb 10.2, hct 33, WBC 13,000 normal differential, creatinine 0.8, BUN 18, potassium 3.9, INR 2. ASSESSMENT: 1. Acute pneumonitis seems to be resolving clinically. 2. The patient has developed diarrhea we will do C-Diff. PLAN: 1. Discharge the patient to the swing bed with antibiotics and may need some physical therapy. She is feeling weak and tired 2. She is on Zosyn and Zithromax dose is done was continuous steroids. CONDITION: STABLE TIME SPENT: More than 30 minutes. Plan and coordination of the patient's care discussed in the presence of nurse. ANETA
--- NOTE | 2020-01-14 10:58 | DS ---
DATE OF SERVICE: 01/13/2020 FINAL DIAGNOSIS: ACUTE PNEUMONITIS GENERALIZED MUSCLE WEAKNESS SEVERE COPD HYPOKALEMIA HISTORY: SEVERE COPD, OXYGEN DEPENDENT ANEMIA ACUTE RESPIRATORY FAILURE/ HAS CHRONIC RESPIRATORY FAILURE RECURRENT PNEUMONIA PULMONARY FIBROSIS PULMONARY NODULE- FOLLOWED BY DR. 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 CONTINUE OXYGEN AT 3 L/M PER NASAL CANNULA CONTINUOS, AND PROPER PRECAUTION. CBC AND CMP EVERY THREE DAYS, START Friday01/16/2020. STOOL FOR C-DIFF ( IF NOT COLLECTED AT INPATIENT). PT/INR DAILY. WEIGH DAILY. MD FOLLOW UP: DR RASCON/ JAZZMINE CHEW APRN / TERESA LYONS APRN WILL SEE ON ROUNDS. DR. OLIVAS, NEUROPSYCHOLOGY SERVICE DIRECTOR, TO RE- SCHEDULED AFTER SWING BED. CODE STATUS : DO NOT RESUSCITATE TAKE THESE MEDICATIONS AT HOME: Acetaminophen (Acetaminophen 325 Mg Tablet) 650 mg PO Q4H PRN PRN Reason: Headache Albuterol Sulfate (Albuterol Sulfate (Ventolin Hfa) 18 Gm 1 Puff With Spacer) 2 puff IH RTQID [facility] Last Admin: 01/13/20 10:01 Dose: 2 puff Documented by: Alprazolam (Alprazolam 0.25 Mg Tablet) 0.25 mg PO TID [facility] Last Admin: 01/13/20 09:01 Dose: 0.25 mg Documented by: Brimonidine Tartrate (Brimonidine Tartrate 0.2% 5 Ml Btl) 1 drop EACHEYE BID [facility] Last Admin: 01/13/20 09:54 Dose: 1 drop Documented by: Budesonide/Formoterol Fumarate (Budesonide/Formoterol Fumarate 160/4.5 Mcg Inhaler) 2 puff IH BID [facility] Last Admin: 01/13/20 08:59 Dose: 2 puff Documented by: Carvedilol (Carvedilol 3.125 Mg Tablet) 3.125 mg PO BIDWM [facility] Last Admin: 01/13/20 09:01 Dose: 3.125 mg Documented by: Ferrous Sulfate (Ferrous Sulfate 324 Mg Tablet.) 324 mg PO DAILY [facility] Last Admin: 01/13/20 09:00 Dose: 324 mg Documented by: Furosemide (Furosemide 20 Mg Tablet) 20 mg PO QDAC [facility] Last Admin: 01/13/20 05:53 Dose: 20 mg Documented by: Guaifenesin (Guaifenesin 600 Mg Tablet.Er) 600 mg PO Q12HR [facility] Last Admin: 01/13/20 09:00 Dose: 600 mg Documented by: Piperacillin Sod/Tazobactam (Sod 3.375 gm/ Sodium Chloride) 50 mls @ 50 mls/hr IV Q6HR [facility] Last Admin: 01/13/20 11:43 Dose: 50 mls/hr Documented by: Non-Formulary Medication (Ipratropium [place]) 2 spray EDWIN BID [facility] Last Admin: 01/13/20 09:57 Dose: Not Given Documented by: Pantoprazole Sodium (Pantoprazole Sodium 40 Mg Tablet.) 40 mg PO BIDAC [facility] Last Admin: 01/13/20 05:53 Dose: 40 mg Documented by: Potassium Chloride (Potassium Chloride 20 Meq Tab) 20 meq PO DAILYWM [facility] Last Admin: 01/13/20 09:00 Dose: 20 meq Documented by: Prednisone (Prednisone 20 Mg Tablet) 20 mg PO DAILYWM [facility] Last Admin: 01/13/20 09:00 Dose: 20 mg Documented by: Promethazine HCl/Codeine (Promethazine/Codeine Syrup 6.25/10 Mg/5 Ml Disp.Syringe) 10 ml PO Q6H PRN PRN Reason: Cough Last Admin: 01/12/20 18:22 Dose: 10 ml Documented by: Sodium Chloride (0.9% Sodium Chloride 10 Ml Disp.Syrin) 1 syr IVF Q8HR [facility] Last Admin: 01/13/20 13:07 Dose: 1 syr Documented by: Tramadol HCl (Tramadol Hcl 50 Mg Tablet) 50 mg PO BID [facility] Last Admin: 01/13/20 09:01 Dose: 50 mg Documented by: Warfarin Sodium (Warfarin Sodium 3 Mg Tablet) 3 mg PO QPM [facility] Last Admin: 01/12/20 17:08 Dose: 3 mg Documented by: ALLERGIES: ciprofloxacin [From Cipro] Adverse Reaction (Intermediate, Verified 12/31/19 13:03) acetylcysteine [From Mucomyst] Adverse Reaction (Verified 12/31/19 13:03) hydrocodone Adverse Reaction (Verified 12/31/19 13:03) Abdominal Pain GI cocktail Adverse Reaction (Uncoded 06/01/19 14:27) Mucomyst Adverse Reaction (Uncoded 11/17/19 08:38) Head pressure DISCONTINUED MEDICATIONS: NONE NEW PRESCRIPTIONS: NONE SMOKING: FORMER SMOKER DISEASE SPECIFIC EDUCATIOM: ACUTE PNEUMONITIS SOA COVID 19 LAB REVIEW: 01/13/20 05:38 01/13/20 05:38 01/13/20 05:38: Sodium 137.0, Potassium 3.95, Chloride 102.0, Carbon Dioxide 33.3 H, Anion Gap 5.65, BUN 18.7 H, Creatinine 0.80, Estimated GFR (MDRD) 70.00, BUN/Creatinine Ratio 23.37, Glucose 108.4 H, Calcium 10.13, Total Bilirubin 0.22, AST 32.8, ALT 16.8, Alkaline Phosphatase 94.8, Total Protein 5.99 L, Albumin 2.96 L, Globulin 3.03, Albumin/Globulin Ratio 0.97 01/13/20 05:38: PT 18.8 H, INR 2.00 01/13/20 05:38: WBC 13.95 H D, RBC 3.62 L, Hgb 10.2 L, Hct 33.1 L, MCV 91.4, MCH 28.2, MCHC 30.8 L, RDW Coeff of Elie 17.1 H, Plt Count 317, Immature Gran % (Auto) 0.7, Neut % (Auto) 89.7 H, Lymph % (Auto) 6.5 L, [place] % (Auto) 3.0, Eos % (Auto) 0.0, Baso % (Auto) 0.1, Neut # (Auto) 12.5 H, Lymph # (Auto) 0.9, [place] # (Auto) 0.4, Eos # (Auto) 0.0, Baso # (Auto) 0.0, Immature Gran # (Auto) 0.1 ACTIVITY: UP WITH WALKER AND SBA PT AND OT EVALUATION DIET: REGULAR WITH ADEQUATE FLUIDS BOOST PLUS 240 ML BID ( 1000 , 1400 ) HOSPITAL COURSE: 79 year old white female who has recurrent hospitalization for her respiratory problem was hospitalized again with increasing shortness of breath on minimal exertion. The patient had acute pneumonitis, she was ruled out to have COVID-19. Now she has been treated with Zithromax and Zosyn and steroids with NEBS treatment. Her condition improved and her hemoptysis resolved. Her clinically findings with auscultation has improved. Appetite has improved some. The patient is aware of the fact that has endstage chronic lung disease. She wants DNR. The was present practically everyday. Educated about the patient's problems. The entire time has been agreeable to stay on swing bed for further antibiotic and possibly rehab. She was going to be treated with IV Zosyn for the bacteria that has been grown. The patient's prognosis is poor. The patient declined any further workup for her anemia in a way of colonoscopy or EGD. The patient is not stable enough to undergo either one of EGD or colonoscopy at present time. TIME SPENT: More than 60 minutes. MTDD
--- NOTE | 2020-01-14 10:59 | PN ---
01/10/2020: Level 5 01/11/2020: Intermediate 01/12/2020: Intermediate 01/13/2020: D as in discharge/ going to be admitted to swing bed. TIND
== END 2020-01-13 15:46 | disposition swing bed (61) | DRG 190 ==
LOC: SCU 11:58 → MEDSURG B 01-11 22:00
PROVIDERS: ADMIT Internal Medicine; ATTEND Internal Medicine

== ENCOUNTER 2020-02-28 15:44 | Inpatient (IN) ==
[2020-02-28] MEDS ORDERED: TORADOL IM STA (17:09)
[2020-02-28] MEDS ORDERED: ATROVENT HFA INHALER (PER PUFF-WITH SPACER) IH STA ×2 (17:09→18:52)
[2020-02-28] MEDS ORDERED: VENTOLIN HFA (PER PUFF-WITH SPACER) IH STA ×2 (17:09→18:52)
[2020-02-28] MEDS ORDERED: SOLU-MEDROL 125 MG IM STA (17:09)
[2020-02-28 17:40] LABS: BASOPHILS # (AUTO) 0.1 K/uL (0-0.2); BASOPHILS % (AUTO) 0.4 % (0.0-3.0); EOSINOPHILS # (AUTO) 0.2 K/ul (0.0-0.7); EOSINOPHILS % (AUTO) 0.8 % (0.0-7.0); HEMATOCRIT 34.5 % (37.0-47.0); IMMATURE GRANULOCYTE # (AUTO) 0.1 (0.0-1.0); IMMATURE GRANULOCYTE % (AUTO) 0.5 % (0.0-5.0); LYMPHOCYTES # (AUTO) 1.8 K/uL (0.60-3.4); MEAN CORPUSCULAR HEMOGLOBIN 29.2 pg (27.0-31.0); MEAN CORPUSCULAR HGB CONC 31.9 (31.8-35.4); MEAN CORPUSCULAR VOLUME 91.5 fl (81.0-99.0); MONOCYTES # (AUTO) 1.3 K/uL (0.4-2.0); MONOCYTES % (AUTO) 5.8 (0-10); NEUTROPHILS # (AUTO) 18.8 K/ul (2.0-6.9); NEUTROPHILS % (AUTO) 84.5 % (42.2-75.2); PLATELET COUNT 358 10^3/uL (140-440); RDW COEFFICIENT OF VARIATION 14.6 % (11.6-14.8); RED BLOOD COUNT 3.77 10^6/ul (4.20-5.40); WHITE BLOOD COUNT 22.26 K/ul (4.6-10.2)
[2020-02-28 17:45] LABS: ABG BASE EXCESS 9.9 (-2.0-2.0); ABG HCO3 34.7 (22.0-26.0); ABG TCO2 36.4 (22.0-28.0)
[2020-02-28 17:47] LABS: ABG OXYGEN SATURATION 90.6 % (95-100)
--- NOTE | 2020-02-28 17:52 | CT ---
EXAM: CT scan chest without contrast HISTORY: Shortness of breath right-sided pleurisy COMPARISON: CT scan chest 01/10/2020 FINDINGS: Contiguous axial images obtained through the thorax without contrast utilizing 5-mm collim ation. Sagittal and coronal reconstructions were imaged and reviewed. The thoracic inlet is unremar kable. There are calcified mediastinal and nodes. The the heart is normal in size without pericardi al effusion. The ascending aorta is ectatic measuring 3.1 cm. There are marked emphysematous changes ... Decreasing consolidation with cavitation right upper lobe. Right upper lobe cavity measures 4.8 x 1.8 cm. Prior measurement was 5.2 x 2.5 cm.. Slight increase in right lower subpleural consolidat ion with increasing subpleural bullous changes. There is stable bronchiectasis extensive bronchial w all thickening. They are benign granulomatous changes.. Developing interstitial consolidation with honeycombing is noted at the left lung base. There is a new focus of peripheral consolidation at the left lung base with central cavitation. There is no evidence of a pleural effusion. Bone windows r eveals no evidence of lytic or blastic lesions. IMPRESSION: Normal-sized cardiac silhouette without pericardial effusion. Marked emphysematous changes with benign granulomatous change. Scattered bronchiectatic changes with bronchial wall thickening most prominent at the lung bases.. Decreasing consolidation with cavitation right upper lobe.. Slight increase in subpleural consolidat ion at the right lung base with new peripheral cavitary consolidation at the left lung base. The level interstitial opacity left lung base with associated honeycombing.
[2020-02-28 17:53] LABS: ALANINE AMINOTRANSFERASE 12.1 U/L (0-35); ALBUMIN 3.66 g/dL (3.5-5.0); ALKALINE PHOSPHATASE 220.2 U/L (53-141); ASPARTATE AMINO TRANSFERASE 31.9 U/L (14-36); BILIRUBIN,TOTAL 0.37 mg/dL (0.2-1.3); BLOOD UREA NITROGEN 10.3 mg/dL (7-17); CARBON DIOXIDE 33.1 mmol/L (22-30.0); CREATININE 0.85 mg/dL (0.60-1.30); GLUCOSE 102.4 mg/dL (74-106); POTASSIUM 3.65 mmol/L (3.5-5.1); SODIUM 133.6 mmol/L (134.5-145); TOTAL PROTEIN 7.06 g/dL (6.3-8.2)
[2020-02-28 18:07] LABS: TROPONIN I < 0.012 ng/ml (0.0000-0.120)
[2020-02-28] MEDS ORDERED: SOLU-MEDROL 125 MG IVP STA (18:15)
[2020-02-28] MEDS: SODIUM CHLORIDE 1,000 ML IV STA ×2 (18:27→19:26)
[2020-02-28] MEDS ORDERED: ROCEPHIN 1 GM/50 ML D5W 1 GM/50 ML BAG IV STA (18:41)
--- NOTE | 2020-02-28 19:10 | ED.PDOC ---
General ED Provider: Dr. JAMES BATEMAN MD Chief Complaint: Shortness of Air Stated Complaint: increasing SOB x 3 days. Time Seen by Physician: 15:49 Mode of Arrival: Ambulance Information Source: Patient and EMT Primary Care Provider: RAISA RASCON Nursing and Triage Documentation Reviewed and Agree: Yes Does patient meet sepsis criteria?: No System Inflammatory Response Syndrome: Not Applicable Sepsis Protocol: For patient's 13 years and over: Temp is 96.8 and below OR 101 and greater Pulse >90 BPM Resp >20/minute Acutely Altered Mental Status Are patient's symptoms suggestive of a new infection, such as: -Pneumonia -Skin, Soft Tissue -Endocarditis -UTI -Bone, Joint Infection -Implantable Device -Acute Abdominal Infection -Wound Infection -Meningitis -Blood Stream Catheter Infection -Unknown Respiratory Complaint Exam Shortness of Air Complaint/Exam Symptoms Are: Still present Timing: Constant Initial Severity: Mild Current Severity: Moderate Character: Reports Dyspnea at rest Aggravating: Reports Deep breaths Alleviating: Reports Bronchodilators Associated Signs and Symptoms: Reports Cough, Wheezing and Chest pain Home Oxygen Use: No Respiratory Distress: Mild Stridor Present: No Accessory Muscle Use: Yes Retractions: Intercostal Differential Diagnoses: Chest Wall Pain, COPD Exacerbation, Pneumonia, Bronchitis, Bronchiolitis, Bronchospasm and URI Review of Systems Review Of Systems Constitutional: Reports No symptoms Eyes: Reports No symptoms Ears, Nose, Mouth, Throat: Reports No symptoms Respiratory: Reports Short of air and Wheezing Cardiac: Reports No symptoms and Chest pain GI: Reports No symptoms : Reports No symptoms Musculoskeletal: Reports No symptoms Skin: Reports No symptoms Neurological: Reports No symptoms Endocrine: Reports No symptoms Hematologic/Lymphatic: Reports No symptoms All Other Systems: Reviewed and Negative [facility] Medical History Arrhythmia Asthma Bronchitis COPD (chronic obstructive pulmonary disease) Hypertension Pneumonia Pulmonary emboli Family History BROTHER No problems noted. Mother COPD (chronic obstructive pulmonary disease) Other Cancer Social History Smoking and tobacco status: Former smoker Substance use type: does not use History of recent travel: No Surgical History History of hysterectomy Female Reproductive History Menstrual Hx Hysterectomy: Yes Hx Tubal Ligation: No Physical Exam Physical Exam Appearance: Reports Ill-appearing Ill-appearing: Mild Pain Distress: Mild Eyes: Reports BETH, EOMI and Conjunctiva clear ENT: Reports Ears normal, Nose normal and Oropharynx normal Neck: Supple Respiratory: Reports Airway patent, Rhonchi and Wheezes Cardiovascular: Reports RRR and Pulses normal GI/: Reports Soft, Nontender, No masses, Bowel sounds normal and No Organomegaly Musculoskeletal: Reports Normal strength, ROM intact, No edema and No calf tenderness Skin: Reports Warm, Dry and Normal color Neurological: Reports Sensation intact, Motor intact, Reflexes intact, Cranial nerves intact, Alert and Oriented Psychiatric: Reports Affect appropriate and Mood appropriate Interpretation Radiology Interpretation Radiology Interpretation By: Radiologist Radiology Results: Positive Exam Interpreted: CT Scan Re-Evaluation Re-Evaluation Time of Re-Evaluation: 16:40 Status: Improved Vital Signs Stable: Yes Pain Level: 2 Appearance: NAD Lungs: Other (wheezes and rhonchi) Skin: Warm and Dry Neuro: Alert and Oriented X3 CV: RRR Critical Care Note Critical Care Note Total Critical Care Time (mins): 0 Course Course Hematology/Chemistry: 02/28/20 17:39 02/28/20 17:39 Orders, Labs, Meds: Lab Review 02/28/20 02/28/20 02/28/20 17:09 17:39 17:39 WBC 22.26 H RBC 3.77 L Hgb 11.0 L Hct 34.5 L MCV 91.5 MCH 29.2 MCHC 31.9 RDW Coeff of Elie 14.6 Plt Count 358 Immature Gran % (Auto) 0.5 Neut % (Auto) 84.5 H Lymph % (Auto) 8.0 L [place] % (Auto) 5.8 Eos % (Auto) 0.8 Baso % (Auto) 0.4 Neut # (Auto) 18.8 H Lymph # (Auto) 1.8 [place] # (Auto) 1.3 Eos # (Auto) 0.2 Baso # (Auto) 0.1 Immature Gran # (Auto) 0.1 Puncture Site Rb O2 Saturation 90.6 L ABG pH 7.40 ABG pCO2 56.0 H ABG pO2 60.0 L ABG HCO3 34.7 H ABG Total CO2 36.4 H ABG Base Excess 9.9 H [place] Test + O2 Delivery Device Nc Oxygen Liter Flow 3.00 Sodium 133.6 L Potassium 3.65 Chloride 94.0 L Carbon Dioxide 33.1 H Anion Gap 10.15 BUN 10.3 Creatinine 0.85 Estimated GFR (MDRD) 65.00 BUN/Creatinine Ratio 12.11 Glucose 102.4 Calcium 10.20 Total Bilirubin 0.37 AST 31.9 ALT 12.1 Alkaline Phosphatase 220.2 H Troponin I < 0.012 Total Protein 7.06 Albumin 3.66 Globulin 3.40 Albumin/Globulin Ratio 1.07 Orders Category Date Time Status ABG DRAW REQUEST Stat CARDIO 02/28/20 17:09 Completed EKG-(ED ONLY) Stat CARDIO 02/28/20 17:09 Completed METERED DOSE INHALATION Routine CARDIO 02/28/20 17:12 Completed METERED DOSE INHALATION Routine CARDIO 02/28/20 18:53 Ordered ED IV/MEDIPORT/POWERPORT .ONCE EMERGENCY 02/28/20 18:06 Active ABG Stat LAB 02/28/20 17:09 Completed BLOOD CULTURE (ED ONLY) Stat LAB 02/28/20 18:55 Ordered CBC W/ AUTO DIFF Stat LAB 02/28/20 17:39 Completed COMPREHENSIVE METABOLIC PANEL Stat LAB 02/28/20 17:39 Completed TROPONIN I Stat LAB 02/28/20 17:39 Completed 0.9 % Sodium Chloride [Saline Flush] MEDS 02/28/20 18:06 Active 1 syr IVF PRN PRN Albuterol Inhaler(with Spacer) [Ventolin Hfa (Per Puff- MEDS 02/28/20 17:09 Discontinued with Spacer)] 2 puff IH ONCE STA Albuterol Inhaler(with Spacer) [Ventolin Hfa (Per Puff- MEDS 02/28/20 18:52 Discontinued with Spacer)] 2 puff IH ONCE STA Ceftriaxone/D5w 1 gm Premix [Rocephin 1 gm/50 ml D5w] MEDS 02/28/20 18:41 Active 1 gm in 50 ml IV ONCE Ipratropium Inhaler(Spacer) [Atrovent Hfa Inhaler (Per MEDS 02/28/20 17:09 Discontinued Puff-with Spacer)] 2 puff IH ONCE STA Ipratropium Inhaler(Spacer) [Atrovent Hfa Inhaler (Per MEDS 02/28/20 18:52 Discontinued Puff-with Spacer)] 2 puff IH ONCE STA Ketorolac Tromethamine [Toradol] MEDS 02/28/20 17:09 Discontinued 60 mg IM ONCE STA Methylprednisolone Sod Succ/Pf [Solu-Medrol 125 mg] MEDS 02/28/20 18:15 Discontinued 125 mg IVP ONCE STA Sodium Chloride 0.9% [Sodium Chloride] 1,000 ml MEDS 02/28/20 18:[address] CHEST W/O CONTRAST Stat RADS 02/28/20 17:09 Completed Medications Generic Name Dose Route Start Last Admin Trade Name Freq PRN Reason Stop Dose Admin CEFTRIAXONE/D5W 1 GM PREMIX 1 gm in 50 mls @ 75 mls/hr 02/28/20 18:41 Rocephin 1 Gm/50 Ml D5w IV 02/28/20 19:20 ONCE STA Sodium Chloride 1 syr 02/28/20 18:06 0.9% Sodium Chloride 10 Ml Disp.Syrin IVF PRN PRN To flush IV Discontinued Medications Generic Name Dose Route Start Last Admin Trade Name Freq PRN Reason Stop Dose Admin Albuterol Sulfate 2 puff 02/28/20 17:09 02/28/20 17:37 Albuterol Sulfate (Ventolin Hfa) 18 Gm 1 Puff With Spacer IH 02/28/20 17:10 2 puff ONCE STA Administration Albuterol Sulfate 2 puff 02/28/20 18:52 Albuterol Sulfate (Ventolin Hfa) 18 Gm 1 Puff With Spacer IH 02/28/20 18:53 ONCE STA Sodium Chloride 1,000 mls @ 1,000 mls/hr 02/28/20 18:06 Sodium Chloride IV 02/28/20 19:05 BOLUS STA Ipratropium [place] 2 puff 02/28/20 17:09 02/28/20 17:39 Ipratropium [place] 12.9 Gm Hfa Inhaler Per Puff With Spacer IH 02/28/20 17:10 2 puff ONCE STA Administration Ipratropium [place] 2 puff 02/28/20 18:52 Ipratropium [place] 12.9 Gm Hfa Inhaler Per Puff With Spacer IH 02/28/20 18:53 ONCE STA Ketorolac Tromethamine 60 mg 02/28/20 17:09 02/28/20 18:02 Ketorolac Tromethamine 60 Mg/2 Ml Vial IM 02/28/20 17:10 60 mg ONCE STA Administration Methylprednisolone Sodium Succinate 125 mg 02/28/20 18:15 02/28/20 18:26 Methylprednisolone Sod Succ/Pf 125 Mg/2 Ml Vial IVP 02/28/20 18:16 125 mg ONCE STA Administration Vital Signs: Temp Pulse Resp BP Pulse Ox 02/28/20 15:45 98.5 F 94 H 20 116/61 92 L Discharge Plan Discharge Prescriptions: No Action alprazolam [Xanax] 0.25 mg tablet 0.25 mg PO TID RF: 0 pantoprazole [Protonix] 40 mg tablet,delayed release (DR/EC) 40 mg PO BID RF: 0 ferrous sulfate 325 mg (65 mg iron) Tablet 325 mg PO DAILY RF: 0 promethazine-codeine 6.25-10 mg/5 mL Syrup 10 ml PO Q6H PRN (Reason: Cough) RF: 0 guaifenesin [Mucinex] 600 mg Tablet Extended Release 12hr 600 mg PO Q12H Qty: 60 RF: 0 [place] P 0.1 % Drops 1 drp BOTHEYES BID RF: 0 acetaminophen [Tylenol] 325 mg Tablet 650 mg PO Q4HR PRN (Reason: Mild Pain (Scale Score 1-4)) Qty: 30 RF: 1 warfarin 3 mg Tablet 3 mg PO Q6PM Qty: 30 RF: 1 loratadine 10 mg Tablet 10 mg PO DAILY Qty: 30 RF: 1 potassium chloride [K-Tab] 10 mEq Tablet Extended Release 10 meq PO DAILY Qty: 30 RF: 1 prednisone 5 mg Tablet 5 mg PO DAILY Qty: 30 RF: 1 Saccharomyces boulardii [Florastor] 250 mg Capsule 250 mg PO BID Qty: 60 RF: 1 carvedilol [Coreg] 3.125 mg tablet 3.125 mg PO BIDWM RF: 0 furosemide 20 mg Tablet 20 mg PO QDAC RF: 0 tramadol 50 mg tablet 50 mg PO BID RF: 0 budesonide 0.5 mg/2 mL Suspension For Nebulization 0.5 mg INHALATION BID RF: 0 ipratropium-albuterol 0.5 mg-3 mg(2.5 mg base)/3 mL solution for nebulization 3 ml INHALATION TID RF: 0 azithromycin [Zithromax Z-Wei] 250 mg tablet See Rx Instructions .ROUTE .COMPLEX Qty: 6 RF: 0 ED Provider: JAMES BATEMAN Physician Progress Note: []
[2020-02-28] MEDS ORDERED: ZOFRAN 4 MG/2 ML IVP PRN (22:11)
[2020-02-28] MEDS ORDERED: TYLENOL PO PRN (22:17)
[2020-02-28] MEDS ORDERED: MUCINEX PO SCH (22:30)
[2020-02-29 00:05] LABS: PROTHROMBIN TIME 37.2 SEC (9.3-11.0)
[2020-02-29] MEDS: ZOSYN 3.375 GM 3.375 GM in SODIUM CHLORIDE 50 ML IV SCH ×2 (00:49→05:43)
[2020-02-29] MEDS: PHENERGAN WITH CODEINE 6.25/10 MG/5 ML PO PRN (00:50)
[2020-02-29 01:00] VITALS: BMI 16.7
[2020-02-29] MEDS ORDERED: SOLU-MEDROL 40 MG IVP SCH ×3 (02:00→13:00)
[2020-02-29 04:44] LABS: HEMATOCRIT 33.2 % (37.0-47.0); HEMOGLOBIN 10.6 g/dl (12.0-16.0); MEAN CORPUSCULAR HEMOGLOBIN 28.8 pg (27.0-31.0); MEAN CORPUSCULAR HGB CONC 31.9 (31.8-35.4); MEAN CORPUSCULAR VOLUME 90.2 fl (81.0-99.0); PLATELET COUNT 335 10^3/uL (140-440); RDW COEFFICIENT OF VARIATION 14.3 % (11.6-14.8); RED BLOOD COUNT 3.68 10^6/ul (4.20-5.40); WHITE BLOOD COUNT 25.05 K/ul (4.6-10.2)
[2020-02-29 04:49] LABS: ANISOCYTOSIS NOT PRESENT (NOT PRESENT)
[2020-02-29 05:01] LABS: ALANINE AMINOTRANSFERASE 10.6 U/L (0-35); ALBUMIN 3.41 g/dL (3.5-5.0); ALKALINE PHOSPHATASE 193.7 U/L (53-141); ASPARTATE AMINO TRANSFERASE 23.3 U/L (14-36); BILIRUBIN,TOTAL 0.36 mg/dL (0.2-1.3); BLOOD UREA NITROGEN 11.7 mg/dL (7-17); CALCIUM 9.74 mg/dL (8.4-10.2); CARBON DIOXIDE 29.6 mmol/L (22-30.0); CHLORIDE 95.3 mmol/L (98-107); CREATINE KINASE 27.5 U/L (30-135); CREATININE 0.82 mg/dL (0.60-1.30); GLUCOSE 161.4 mg/dL (74-106); POTASSIUM 4.32 mmol/L (3.5-5.1); SODIUM 132.5 mmol/L (134.5-145); TOTAL PROTEIN 6.65 g/dL (6.3-8.2)
[2020-02-29 05:13] LABS: TROPONIN I < 0.012 ng/ml (0.0000-0.120)
[2020-02-29] MEDS: PROTONIX PO SCH ×2 (05:43→17:11)
[2020-02-29] MEDS: LASIX TAB PO SCH (05:43)
[2020-02-29 05:48] LABS: PROTHROMBIN TIME 38.2 SEC (9.3-11.0)
[2020-02-29] MEDS ORDERED: PULMICORT 0.5 MG/2 ML NEB SCH (06:00)
[2020-02-29] MEDS: DUONEB NEB SCH ×3 (07:32→19:28)
[2020-02-29] MEDS ORDERED: MICRO-K CAP PO SCH (09:00)
[2020-02-29] MEDS: MUCINEX PO SCH ×2 (09:10→20:32)
[2020-02-29] MEDS: COREG PO SCH ×2 (09:10→17:11)
[2020-02-29] MEDS: FLORASTOR PO SCH ×2 (09:10→20:32)
[2020-02-29] MEDS: CLARITIN PO SCH (09:10)
[2020-02-29] MEDS: ULTRAM PO SCH ×2 (09:11→20:32)
[2020-02-29] MEDS: BRIMONIDINE TARTRATE 0.2% OPTH SOL EACHEYE SCH ×2 (09:19→20:33)
--- NOTE | 2020-02-29 09:39 | PCM.PROG ---
Attending Provider: ATTENDING PROVIDER: Dr. RAISA RASCON This patient is seen with Zuly Henry, Nurse Practitioner. DATE OF SERVICE: 02/29/20 SUBJECTIVE: This 79 year old /WHITE F was hospitalized 02/28/20. The patient is resting comfortably. She has cough and shortness of breath. Chest x-ray shows new areas of pneumonia. No fevers. REVIEW OF SYSTEMS: CONSTITUTIONAL: No night sweats. No fatigue, malaise, lethargy. No fever or chills. HEENT: Eyes: No visual changes. No eye pain. No eye discharge. ENT: No runny nose. No epistaxis. No sinus pain. No odynophagia. No congestion. RESPIRATORY: Cough, no congestion. No hemoptysis. Shortness of breath. CARDIOVASCULAR: No angina symptoms. No CHF symptoms. No atypical chest pain for CAD. No palpitations. No orthopnea.. GASTROINTESTINAL: No abdominal pain. No nausea or vomiting. No diarrhea or constipation. No hematemesis. No hematochezia. GENITOURINARY: No urgency. No frequency. No dysuria. No hematuria. No obstr uctive symptoms. No discharge. No pain. No significant abnormal bleeding. MUSCULOSKELETAL: No musculoskeletal pain; no joint swelling. Weakness. NEUROLOGICAL: Awake, alert, oriented to time, place and person. No headache. No neck pain. No syncope. No seizures. No dizziness. PSYCHIATRIC: Not anxious. No depression. No suicidal thoughts. No homicidal thoughts. SKIN: No rash. No lesions. No wounds. ENDOCRINE: No unexplained weight loss. No weight gain. HEMATOLOGIC/LYMPHATIC: No anemia. No purpura. No petechiae. No prolonged or excessive bleeding. No palpable lymph nodes. PHYSICAL EXAMINATION: GENERAL: The patient is awake, alert and oriented, lying in bed in no distress. VITAL SIGNS: Temperature 97.5 F, Pulse 69, Respiratory Rate 20, BP 126/65, Pulse Ox 99% HEENT: Head normocephalic, atraumatic. Eyes: Extraocular muscles are intact. Pupils are equal, round and reactive to light and accommodation. Ears: No lesions. Nose appeared normal. Throat: No exudate or erythema. NECK: Supple. No JVD, no carotid bruit. No lymphadenopathy or thyromegaly. LUNGS: Clear to auscultation. Percussion note normal. Chest symmetrical. Inspiratory and expiratory wheezing on the left with rales on the right. HEART: S1, S2, no S3. No murmurs. No cyanosis or clubbing. No ascites. Pulses: Dorsalis pedis and posterior tibial pulses +1 to +2 both sides. ABDOMEN: Soft. Non-tender. Bowel sounds active. No CVA tenderness. No mass felt. EXTREMITIES: No edema. Full range of motion of all extremities, equal. NEUROLOGIC: No focal deficit. Cranial nerves II through XII are grossly intact. No headache, no double vision or headache. SKIN: Not dry. Intact. Turgor-normal. LYMPHATIC: No palpable lymph nodes/no lymphedema. MUSCULOSKELETAL: Normal joints with no swelling. Muscle tone is normal. LAB REVIEW: 02/29/20 04:25 02/29/20 04:25 02/29/20 04:25: PT 38.2 H, INR 4.23 H* 02/29/20 04:25: WBC 25.05 H, RBC 3.68 L, Hgb 10.6 L, Hct 33.2 L, MCV 90.2, MCH 28.8, MCHC 31.9, RDW Coeff of Elie 14.3, Plt Count 335, Neutrophils % (Manual) 93.0 H, Band Neutrophils % 2.0, Lymphocytes % (Manual) 4.0 L, Monocytes % (Manual) 1.0, Anisocytosis Not present 02/29/20 04:25: Sodium 132.5 L, Potassium 4.32, Chloride 95.3 L, Carbon Dioxide 29.6, Anion Gap 11.92, BUN 11.7, Creatinine 0.82, Estimated GFR (MDRD) 68.00, BUN/Creatinine Ratio 14.26, Glucose 161.4 H D, Calcium 9.74, Total Bilirubin 0.36, AST 23.3, ALT 10.6, Alkaline Phosphatase 193.7 H D, Total Creatine Kinase 27.5 L, Troponin I < 0.012, Total Protein 6.65, Albumin 3.41 L, Globulin 3.24, Albumin/Globulin Ratio 1.05 02/28/20 22:53: PT 37.2 H, INR 4.12 H* 02/28/20 22:29: Miscellaneous Test 02/28/20 17:39: Sodium 133.6 L, Potassium 3.65, Chloride 94.0 L, Carbon Dioxide 33.1 H, Anion Gap 10.15, BUN 10.3, Creatinine 0.85, Estimated GFR (MDRD) 65.00, BUN/Creatinine Ratio 12.11, Glucose 102.4, Calcium 10.20, Total Bilirubin 0.37, AST 31.9, ALT 12.1, Alkaline Phosphatase 220.2 H, Troponin I < 0.012, Total Protein 7.06, Albumin 3.66, Globulin 3.40, Albumin/Globulin Ratio 1.07 02/28/20 17:39: WBC 22.26 H, RBC 3.77 L, Hgb 11.0 L, Hct 34.5 L, MCV 91.5, MCH 29.2, MCHC 31.9, RDW Coeff of Elie 14.6, Plt Count 358, Immature Gran % (Auto) 0.5, Neut % (Auto) 84.5 H, Lymph % (Auto) 8.0 L, [place] % (Auto) 5.8, Eos % (Auto) 0.8, Baso % (Auto) 0.4, Neut # (Auto) 18.8 H, Lymph # (Auto) 1.8, [place] # (Auto) 1.3, Eos # (Auto) 0.2, Baso # (Auto) 0.1, Immature Gran # (Auto) 0.1 02/28/20 17:09: Puncture Site Rb, O2 Saturation 90.6 L, ABG pH 7.40, ABG pCO2 56.0 H, ABG pO2 60.0 L, ABG HCO3 34.7 H, ABG Total CO2 36.4 H, ABG Base Excess 9.9 H, [place] Test +, O2 Delivery Device Nc, Oxygen Liter Flow 3.00 ASSESSMENT: Please see below. 1. Bilateral pneumonia 2. Severe COPD 3. O2 and steroid dependant 4. Persistent right upper lobe pneumonia 5. History of DVT and PE 6. Hypercoagulopathy 7. Hypertension PLAN: 1. Hold Coumadin 2. Increase Solu-medrol 125 Q 8 hours COVID PCR negative. Plan and coordination of the patient's care discussed in the presence of Photo Tech and nurse. SCRIBED BY: LEE RODRIGUEZ Shirring Machine Operator scribed while in presence of service performed by Dr. Rascon/Zuly Henry APRN on 02/29/20 ([id number])
[2020-02-29] MEDS: MERREM 1 GM/50 ML NACL 1 GM/50 ML BAG IV SCH ×2 (11:10→20:32)
[2020-02-29] MEDS: ZOSYN 4.5 GM 4.5 GM in SODIUM CHLORIDE 100 ML IV SCH ×3 (12:04→23:01)
[2020-02-29] MEDS: SOLU-MEDROL 125 MG IVP SCH ×2 (12:05→20:10)
[2020-02-29 12:43] LABS: CREATINE KINASE 31.7 U/L (30-135)
[2020-02-29 13:04] LABS: TROPONIN I < 0.012 ng/ml (0.0000-0.120)
[2020-02-29] MEDS ORDERED: COUMADIN PO SCH (17:00)
[2020-02-29] MEDS: PULMICORT 0.5 MG/2 ML NEB SCH (19:28)
[2020-02-29] MEDS: XANAX PO SCH (20:57)
[2020-03-01] MEDS: DUONEB NEB SCH ×3 (04:55→20:10)
[2020-03-01] MEDS: PULMICORT 0.5 MG/2 ML NEB SCH ×2 (04:55→20:10)
[2020-03-01 05:15] LABS: HEMATOCRIT 32.1 % (37.0-47.0); HEMOGLOBIN 10.6 g/dl (12.0-16.0); MEAN CORPUSCULAR HEMOGLOBIN 29.4 pg (27.0-31.0); MEAN CORPUSCULAR VOLUME 88.9 fl (81.0-99.0); PLATELET COUNT 338 10^3/uL (140-440); RDW COEFFICIENT OF VARIATION 14.4 % (11.6-14.8); RED BLOOD COUNT 3.61 10^6/ul (4.20-5.40); WHITE BLOOD COUNT 24.97 K/ul (4.6-10.2)
[2020-03-01 05:19] LABS: ANISOCYTOSIS NOT PRESENT (NOT PRESENT)
[2020-03-01 05:27] LABS: ALANINE AMINOTRANSFERASE 10.3 U/L (0-35); ALBUMIN 3.31 g/dL (3.5-5.0); ALKALINE PHOSPHATASE 178.7 U/L (53-141); BILIRUBIN,TOTAL 0.29 mg/dL (0.2-1.3); BLOOD UREA NITROGEN 20.4 mg/dL (7-17); CALCIUM 10.16 mg/dL (8.4-10.2); CARBON DIOXIDE 30.7 mmol/L (22-30.0); CHLORIDE 95.4 mmol/L (98-107); CREATININE 0.97 mg/dL (0.60-1.30); GLUCOSE 137.2 mg/dL (74-106); POTASSIUM 4.19 mmol/L (3.5-5.1); SODIUM 131.6 mmol/L (134.5-145); TOTAL PROTEIN 6.69 g/dL (6.3-8.2)
[2020-03-01] MEDS: ZOSYN 4.5 GM 4.5 GM in SODIUM CHLORIDE 100 ML IV SCH ×3 (06:00→21:55)
[2020-03-01] MEDS: SOLU-MEDROL 125 MG IVP SCH ×3 (06:00→22:34)
[2020-03-01] MEDS: LASIX TAB PO SCH (06:00)
[2020-03-01] MEDS: PROTONIX PO SCH ×2 (06:00→16:39)
[2020-03-01] MEDS: BRIMONIDINE TARTRATE 0.2% OPTH SOL EACHEYE SCH ×2 (08:09→20:32)
[2020-03-01] MEDS: MICRO-K CAP PO SCH (08:10)
[2020-03-01] MEDS: COREG PO SCH ×2 (08:10→16:39)
[2020-03-01] MEDS: XANAX PO SCH ×3 (08:10→20:31)
[2020-03-01] MEDS: ULTRAM PO SCH ×2 (08:10→20:30)
[2020-03-01] MEDS: CLARITIN PO SCH (08:10)
[2020-03-01] MEDS: MUCINEX PO SCH ×2 (08:10→20:31)
[2020-03-01] MEDS: FLORASTOR PO SCH ×2 (08:10→20:31)
[2020-03-01] MEDS: MERREM 1 GM/50 ML NACL 1 GM/50 ML BAG IV SCH ×2 (08:11→20:23)
[2020-03-01] MEDS: PHENERGAN WITH CODEINE 6.25/10 MG/5 ML PO PRN (22:34)
[2020-03-02] MEDS: ZOSYN 4.5 GM 4.5 GM in SODIUM CHLORIDE 100 ML IV SCH ×4 (04:36→22:59)
[2020-03-02] MEDS: PULMICORT 0.5 MG/2 ML NEB SCH ×2 (04:40→20:43)
[2020-03-02] MEDS: DUONEB NEB SCH ×3 (04:40→20:43)
[2020-03-02] MEDS: PROTONIX PO SCH ×2 (05:49→16:33)
[2020-03-02] MEDS: LASIX TAB PO SCH (05:49)
[2020-03-02] MEDS: SOLU-MEDROL 125 MG IVP SCH ×3 (06:18→22:56)
[2020-03-02 06:31] LABS: PROTHROMBIN TIME 16.9 SEC (9.3-11.0)
[2020-03-02 07:28] LABS: ALANINE AMINOTRANSFERASE 11.9 U/L (0-35); ALBUMIN 3.37 g/dL (3.5-5.0); ALKALINE PHOSPHATASE 158.1 U/L (53-141); ASPARTATE AMINO TRANSFERASE 26.5 U/L (14-36); BILIRUBIN,TOTAL 0.5 mg/dL (0.2-1.3); CALCIUM 9.85 mg/dL (8.4-10.2); CARBON DIOXIDE 25.3 mmol/L (22-30.0); CHLORIDE 98.8 mmol/L (98-107); CREATININE 0.72 mg/dL (0.60-1.30); GLUCOSE 116.2 mg/dL (74-106); POTASSIUM 3.91 mmol/L (3.5-5.1); SODIUM 132.7 mmol/L (134.5-145); TOTAL PROTEIN 6.69 g/dL (6.3-8.2)
[2020-03-02 07:43] LABS: BASOPHILS % (AUTO) 0.1 % (0.0-3.0); HEMATOCRIT 36.1 % (37.0-47.0); HEMOGLOBIN 11.4 g/dl (12.0-16.0); IMMATURE GRANULOCYTE # (AUTO) 0.2 (0.0-1.0); IMMATURE GRANULOCYTE % (AUTO) 0.9 % (0.0-5.0); LYMPHOCYTES # (AUTO) 0.8 K/uL (0.60-3.4); LYMPHOCYTES % (AUTO) 3.6 (10.0-50.0); MEAN CORPUSCULAR HEMOGLOBIN 29.4 pg (27.0-31.0); MEAN CORPUSCULAR HGB CONC 31.6 (31.8-35.4); MONOCYTES # (AUTO) 0.4 K/uL (0.4-2.0); MONOCYTES % (AUTO) 1.8 (0-10); NEUTROPHILS # (AUTO) 21.8 K/ul (2.0-6.9); NEUTROPHILS % (AUTO) 93.6 % (42.2-75.2); PLATELET COUNT 326 10^3/uL (140-440); RDW COEFFICIENT OF VARIATION 14.8 % (11.6-14.8); RED BLOOD COUNT 3.88 10^6/ul (4.20-5.40); WHITE BLOOD COUNT 23.31 K/ul (4.6-10.2)
[2020-03-02] MEDS: BRIMONIDINE TARTRATE 0.2% OPTH SOL EACHEYE SCH ×2 (08:09→21:14)
[2020-03-02] MEDS ORDERED: LASIX IVP STA (08:15)
[2020-03-02] MEDS: MUCINEX PO SCH ×2 (09:04→21:08)
[2020-03-02] MEDS: COREG PO SCH ×2 (09:04→16:33)
[2020-03-02] MEDS: XANAX PO SCH ×3 (09:05→21:07)
[2020-03-02] MEDS: ULTRAM PO SCH ×2 (09:05→21:08)
[2020-03-02] MEDS: MICRO-K CAP PO SCH (09:05)
[2020-03-02] MEDS: CLARITIN PO SCH (09:05)
[2020-03-02] MEDS: MERREM 1 GM/50 ML NACL 1 GM/50 ML BAG IV SCH ×2 (09:05→21:07)
[2020-03-02] MEDS: FLORASTOR PO SCH ×2 (09:05→21:08)
--- NOTE | 2020-03-02 09:51 | PCM.PROG ---
Attending Provider: ATTENDING PROVIDER: Dr. RAISA YO This patient is seen with Zuly Henry, Nurse Practitioner. DATE OF SERVICE: 03/02/20 SUBJECTIVE: This 79 year old /WHITE F was hospitalized 02/28/20. The patient is resting comfortably. She is feeling more short of breath this morning. REVIEW OF SYSTEMS: CONSTITUTIONAL: No night sweats. No fatigue, malaise, lethargy. No fever or chills. Weakness. HEENT: Eyes: No visual changes. No eye pain. No eye discharge. ENT: No runny nose. No epistaxis. No sinus pain. No odynophagia. No congestion. RESPIRATORY: Cough, no congestion. No hemoptysis. Shortness of breath. CARDIOVASCULAR: No angina symptoms. No CHF symptoms. No atypical chest pain for CAD. No palpitations. No orthopnea.. GASTROINTESTINAL: No abdominal pain. No nausea or vomiting. No diarrhea or constipation. No hematemesis. No hematochezia. GENITOURINARY: No urgency. No frequency. No dysuria. No hematuria. No obstructive symptoms. No discharge. No pain. No significant abnormal bleeding. MUSCULOSKELETAL: No musculoskeletal pain; no joint swelling. NEUROLOGICAL: Awake, alert, oriented to time, place and person. No headache. No neck pain. No syncope. No seizures. No dizziness. PSYCHIATRIC: Not anxious. No depression. No suicidal thoughts. No homicidal thoughts. SKIN: No rash. No lesions. No wounds. ENDOCRINE: No unexplained weight loss. No weight gain. HEMATOLOGIC/LYMPHATIC: No anemia. No purpura. No petechiae. No prolonged or excessive bleeding. No palpable lymph nodes. PHYSICAL EXAMINATION: GENERAL: The patient is awake, alert and oriented, lying in bed in no distress. VITAL SIGNS: Temperature 98.4 F, Pulse 72, Respiratory Rate 17, BP 135/64, Pulse Ox 96% HEENT: Head normocephalic, atraumatic. Eyes: Extraocular muscles are intact. Pupils are equal, round and reactive to light and accommodation. Ears: No lesions. Nose appeared normal. Throat: No exudate or erythema. NECK: Supple. No JVD, no carotid bruit. No lymphadenopathy or thyromegaly. LUNGS: Extremely diminished breath sounds. Clear to auscultation. Percussion note normal. Chest symmetrical. HEART: S1, S2, no S3. No murmurs. No cyanosis or clubbing. No ascites. Pulses: Dorsalis pedis and posterior tibial pulses +1 to +2 both sides. ABDOMEN: Soft. Non-tender. Bowel sounds active. No CVA tenderness. No mass felt. EXTREMITIES: No edema. Full range of motion of all extremities, equal. NEUROLOGIC: No focal deficit. Cranial nerves II through XII are grossly intact. No headache, no double vision or headache. SKIN: Not dry. Intact. Turgor-normal. LYMPHATIC: No palpable lymph nodes/no lymphedema. MUSCULOSKELETAL: Normal joints with no swelling. Muscle tone is normal. LAB REVIEW: 03/01/20 04:50 03/02/20 07:10 03/02/20 07:10: Sodium 132.7 L, Potassium 3.91, Chloride 98.8, Carbon Dioxide 25.3, Anion Gap 12.51, BUN 22.0 H, Creatinine 0.72, Estimated GFR (MDRD) 79.00, BUN/Creatinine Ratio 30.55, Glucose 116.2 H, Calcium 9.85, Total Bilirubin 0.50, AST 26.5, ALT 11.9, Alkaline Phosphatase 158.1 H, Total Protein 6.69, Albumin 3.37 L, Globulin 3.32, Albumin/Globulin Ratio 1.01 03/02/20 05:34: PT 16.9 H D, INR 1.78 ASSESSMENT: Please see below. 1. Bilateral pneumonia 2. Severe COPD 3. O2 and steroid dependant 4. Persistent right upper lobe pneumonia 5. History of DVT and PE 6. Hypercoagulopathy 7. Hypertension PLAN: 1. Resume Coumadin 3mg 2. Lasix 40mg IV times one dose 3. CBC pending this morning Plan and coordination of the patient's care discussed in the presence of Dequan escamilla and nurse. SCRIBED BY: LEE RODRIGUEZ, Inventory Manager scribed while in presence of service performed by Dr. Yo/Zuly Henry APRN on 03/02/20 ([id number])
[2020-03-02] MEDS: COUMADIN PO SCH (16:33)
[2020-03-02] MEDS: PHENERGAN WITH CODEINE 6.25/10 MG/5 ML PO PRN (21:13)
[2020-03-03] MEDS: DUONEB NEB SCH ×3 (04:45→19:25)
[2020-03-03] MEDS: PULMICORT 0.5 MG/2 ML NEB SCH ×2 (04:45→19:25)
[2020-03-03] MEDS: SOLU-MEDROL 125 MG IVP SCH (05:48)
[2020-03-03] MEDS: LASIX TAB PO SCH (05:48)
[2020-03-03] MEDS: PROTONIX PO SCH ×2 (05:48→17:07)
[2020-03-03] MEDS: ZOSYN 4.5 GM 4.5 GM in SODIUM CHLORIDE 100 ML IV SCH ×4 (05:49→23:59)
[2020-03-03 06:01] LABS: BASOPHILS % (AUTO) 0.1 % (0.0-3.0); HEMATOCRIT 31.9 % (37.0-47.0); HEMOGLOBIN 10.3 g/dl (12.0-16.0); IMMATURE GRANULOCYTE # (AUTO) 0.2 (0.0-1.0); IMMATURE GRANULOCYTE % (AUTO) 1.3 % (0.0-5.0); LYMPHOCYTES # (AUTO) 0.5 K/uL (0.60-3.4); LYMPHOCYTES % (AUTO) 4.1 (10.0-50.0); MEAN CORPUSCULAR HEMOGLOBIN 29.2 pg (27.0-31.0); MEAN CORPUSCULAR HGB CONC 32.3 (31.8-35.4); MEAN CORPUSCULAR VOLUME 90.4 fl (81.0-99.0); MONOCYTES # (AUTO) 0.2 K/uL (0.4-2.0); MONOCYTES % (AUTO) 1.9 (0-10); NEUTROPHILS % (AUTO) 92.6 % (42.2-75.2); PLATELET COUNT 291 10^3/uL (140-440); RDW COEFFICIENT OF VARIATION 14.7 % (11.6-14.8); RED BLOOD COUNT 3.53 10^6/ul (4.20-5.40); WHITE BLOOD COUNT 11.87 K/ul (4.6-10.2)
[2020-03-03 06:16] LABS: PROTHROMBIN TIME 15.8 SEC (9.3-11.0)
[2020-03-03 06:18] LABS: ALANINE AMINOTRANSFERASE 15.6 U/L (0-35); ALBUMIN 3.19 g/dL (3.5-5.0); ALKALINE PHOSPHATASE 162.4 U/L (53-141); ASPARTATE AMINO TRANSFERASE 34.2 U/L (14-36); BILIRUBIN,TOTAL 0.32 mg/dL (0.2-1.3); BLOOD UREA NITROGEN 27.1 mg/dL (7-17); CALCIUM 9.68 mg/dL (8.4-10.2); CARBON DIOXIDE 36.5 mmol/L (22-30.0); CHLORIDE 97.3 mmol/L (98-107); CREATININE 0.88 mg/dL (0.60-1.30); GLUCOSE 130.3 mg/dL (74-106); POTASSIUM 3.27 mmol/L (3.5-5.1); SODIUM 138.1 mmol/L (134.5-145); TOTAL PROTEIN 6.34 g/dL (6.3-8.2)
--- NOTE | 2020-03-03 08:45 | HP ---
DATE OF SERVICE: 02/28/20 REASON FOR HOSPITALIZATION/HISTORY OF PRESENT ILLNESS: 79-year-old white female who presents to the emergency room with increasing shortness of breath for the past three days. She has had recurrent pneumonia. She was in the ER about one week ago. Chest x-ray showed bilateral pneumonia. They placed her on oral Clinidamycin. She was sent home. She is now back with increasing shortness of breath, has a long history of COPD, is both oxygen and steroid dependent. PAST MEDICAL HISTORY: Recurrent right lower lobe pneumonia Severe COPD Steroid and oxygen dependent Anemia, which is chronic Chronic respiratory failure Pulmonary fibrosis Pulmonary nodule which is followed by Dr. Peterson Anxiety History of DVT and PE, is on Coumadin Polyarthritis GERD Osteopenia Former smoker Degenerative disk disease of the spine Low BMI Hyperglycemia Polyarthritis Right shoulder pain Recurrent gout PAST SURGICAL HISTORY: Hysterectomy Appendectomy Cataract surgery REVIEW OF SYSTEMS: CONSTITUTIONAL: Positive for weakness. No night sweats. No fatigue, malaise, lethargy. No fever or chills. HEENT: Eyes: No visual changes. No eye pain. No eye discharge. ENT: No runny nose. No epistaxis. No sinus pain. No sore throat. No odynophagia. No ear pain. No congestion. RESPIRATORY: Positive for cough and shortness of breath. No hemoptysis. CARDIOVASCULAR: No angina symptoms. No CHF symptoms. No atypical chest pain for CAD. No palpitations. No PND. No orthopnea. GASTROINTESTINAL: No abdominal pain. No nausea or vomiting. No diarrhea or constipation. No hematemesis. No hematochezia. GENITOURINARY: No urgency. No frequency. No dysuria. No hematuria. No obstructive symptoms. No discharge. No pain. No significant abnormal bleeding. MUSCULOSKELETAL: No musculoskeletal pain. No joint swelling. No arthritis. NEUROLOGICAL: No headache. No neck pain. No syncope. No seizures. No dizziness. PSYCHIATRIC: Not anxious. No depression. No suicidal thoughts. No homicidal thoughts. SKIN: No rash. No lesions. No wounds. ENDOCRINE: No unexplained weight loss. No weight gain. HEMATOLOGIC/LYMPHATIC: No anemia. No purpura. No petechiae. No prolonged or excessive bleeding. No palpable lymph nodes. MEDICATIONS: Alprazolam 0.25 mg p.o. t.i.d. Carvedilol 3.125 mg p.o. b.i.d. with meal Pantoprazole 40 mg p.o. b.i.d. Ferrous Sulfate 325 mg p.o. daily Guaifenesin 600 mg p.o. q.12h Promethazine-Codeine 10 mL p.o. q.6h p.r.n. Furosemide 20 mg p.o. q.d a.c. Tramadol 50 mg p.o. b.i.d. Brimonidine one drop both eyes b.i.d. Potassium Chloride 10 mEq p.o. daily Acetaminophen 650 mg p.o. q.4hr p.r.n. Loratadine 10 mg p.o. daily Prednisone 5 mg p.o. daily Saccharomyces boulardii 250 mg p.o. b.i.d. Warfarin 3 mg p.o. q.6 p.m. Budesonide 0.5 mg INH b.i.d. Azithromycin 250 mg tablet Ipratropium - Albuterol 3 mL INH t.i.d. ALLERGIES: CIPROFLOXACIN, ACETYLCYSTEINE, HYDROCODONE (GI COCKTAIL), (MUCOMYST) PHYSICAL EXAMINATION: VITAL SIGNS: Temperature 98.5, heart rate 94, respirations 20, BP 116/61, pulse ox 92% on 3L. HEENT: Head normocephalic, atraumatic. Eyes: Extraocular muscles are intact. Pupils are equal, round and reactive to light and accommodation. Ears: No lesions. Nose appeared normal. Throat: No exudate or erythema. NECK: Supple. No JVD, no carotid bruit. No lymphadenopathy or thyromegaly. LUNGS: Severely diminished breath sounds bilaterally with rales bilaterally, both inspiratory and expiratory wheezing. Percussion note normal. Chest symmetrical. HEART: S1, S2, no S3. No murmur. No cyanosis or clubbing. No ascites. Pulses: Dorsalis pedis and posterior tibial pulses +1 to +2 bilaterally. ABDOMEN: Soft. Nontender. Bowel sounds active. No CVA tenderness. No mass felt. EXTREMITIES: No edema. Full range of motion of all extremities, equal. NEUROLOGIC: No focal deficit. Cranial nerves II through XII are grossly intact. No headache, no double vision or headache. SKIN: Not dry. Intact. Turgor - normal. LYMPHATIC: No palpable lymph nodes/no lymphedema. MUSCULOSKELETAL: Normal joints with no swelling. Muscle tone is normal. LABS/IMAGING/ABGS: CT of the chest shows marked emphysematous changes, scattered bronchiectatic changes, decreasing consolidation with cavitation right upper lobe, slight increase in consolidation right lung base with new cavitary consolidation in the left lung base. Level of interstitial opacity left lung base associated with honeycombing. ABGs on 3L pH 7.4, pc02 56, p02 60, base excess of 9.9, bicarb 34.7, TC02 36.4, 02 sat 90. White count 22,000, hemoglobin 11, hematocrit 34.5, platelets 358. Sodium 133, potassium 3.6, c02 33, BUN 10, creatinine 0.85, glucose 102, alkaline phosphatase 220, AST 31, ALT 12, INR 4.12. ASSESSMENT: 1. BILATERAL PNEUMONIA PERSISTENT. 2. RIGHT LOBE PNEUMONIA. 3. SEVERE COPD, OXYGEN AND STEROID DEPENDENT. 4. HYPERCOAGULATION, INR 4.12. 5. SHORTNESS OF BREATH. 6. CHRONIC RESPIRATORY FAILURE. 7. ANEMIA. 8. PULMONARY FIBROSIS. 9. ANXIETY. 10. HISTORY OF DVT AND PE. 11. POLYARTHRITIS. 12. GERD. PLAN: 1. We will admit. 2. Routine telemetry orders. 3. Covid-19 tests. 4. CBC, CMP daily. 5. Hold Coumadin for today. 6. INR daily. 7. Start Zosyn IV. 8. Solu-Medrol 125 mg IV q.8hr. 9. Albuterol inhaler t.i.d. OLVIN. 10. Pulmicort 1 mg p.o. b.i.d. nebs after negative test. 11. Oxygen at 1 to 3L as needed. 12. No IV fluids. 13. Regular diet. 14. Continue other home medications. 15. Will follow closely. TIME SPENT: More than 70 minutes. MTDD
[2020-03-03] MEDS: COREG PO SCH ×2 (08:53→17:06)
[2020-03-03] MEDS: MICRO-K CAP PO SCH (08:53)
[2020-03-03] MEDS: FLORASTOR PO SCH ×2 (08:53→20:24)
[2020-03-03] MEDS: XANAX PO SCH ×3 (08:54→20:24)
[2020-03-03] MEDS: ULTRAM PO SCH ×2 (08:54→20:24)
[2020-03-03] MEDS: MERREM 1 GM/50 ML NACL 1 GM/50 ML BAG IV SCH ×2 (08:54→20:25)
[2020-03-03] MEDS: MUCINEX PO SCH ×2 (08:54→20:24)
[2020-03-03] MEDS: CLARITIN PO SCH (08:54)
[2020-03-03] MEDS: BRIMONIDINE TARTRATE 0.2% OPTH SOL EACHEYE SCH ×2 (09:00→21:08)
--- NOTE | 2020-03-03 09:08 | PCM.PROG ---
Attending Provider: ATTENDING PROVIDER: Dr. RAISA RASCON DATE OF SERVICE: 03/03/20 SUBJECTIVE: This 79 year old /WHITE F was hospitalized 02/28/20 with COPD exacerbation with pneumonitis. The patient has recurrent pneumonia. The patient's overall condition has improved. She looks a lot better with good hydration. Appetite has improved. At rest she is not in distress. REVIEW OF SYSTEMS: CONSTITUTIONAL: No night sweats. No fatigue, malaise, lethargy. No fever or chills. HEENT: Eyes: No visual changes. No eye pain. No eye discharge. ENT: No runny nose. No epistaxis. No sinus pain. No odynophagia. No congestion. RESPIRATORY: No cough, no congestion. No hemoptysis. No shortness of breath. CARDIOVASCULAR: No angina symptoms. No CHF symptoms. No atypical chest pain for CAD. No palpitations. No orthopnea.Pleuritic pain a lot better. GASTROINTESTINAL: No abdominal pain. No nausea or vomiting. No diarrhea or constipation. No hematemesis. No hematochezia. GENITOURINARY: No urgency. No frequency. No dysuria. No hematuria. No obstructive symptoms. No discharge. No pain. No significant abnormal bleeding. MUSCULOSKELETAL: No musculoskeletal pain; no joint swelling. NEUROLOGICAL: Awake, alert, oriented to time, place and person. No headache. No neck pain. No syncope. No seizures. No dizziness. PSYCHIATRIC: Not anxious. No depression. No suicidal thoughts. No homicidal thoughts. SKIN: No rash. No lesions. No wounds. ENDOCRINE: No unexplained weight loss. No weight gain. HEMATOLOGIC/LYMPHATIC: No anemia. No purpura. No petechiae. No prolonged or excessive bleeding. No palpable lymph nodes. PHYSICAL EXAMINATION: GENERAL: The patient is awake, alert and oriented, lying in bed in no distress. VITAL SIGNS: Temperature 97.0 F, Pulse 68, Respiratory Rate 20, BP 146/67, Pulse Ox 97% HEENT: Head normocephalic, atraumatic. Eyes: Extraocular muscles are intact. Pupils are equal, round and reactive to light and accommodation. Ears: No lesions. Nose appeared normal. Throat: No exudate or erythema. NECK: Supple. No JVD, no carotid bruit. No lymphadenopathy or thyromegaly. LUNGS: Decreased breath sounds. Clear to auscultation. Percussion note normal. Chest symmetrical. HEART: S1, S2, no S3. No murmurs. No cyanosis or clubbing. No ascites. Pulses: Dorsalis pedis and posterior tibial pulses +1 to +2 both sides. ABDOMEN: Soft. Non-tender. Bowel sounds active. No CVA tenderness. No mass felt. EXTREMITIES: No edema. Full range of motion of all extremities, equal. NEUROLOGIC: No focal deficit. Cranial nerves II through XII are grossly intact. No headache, no double vision or headache. SKIN: Warm and dry. Intact. Turgor-normal. LYMPHATIC: No palpable lymph nodes/no lymphedema. MUSCULOSKELETAL: Normal joints with no swelling. Muscle tone is normal. LAB REVIEW: 03/03/20 05:40 03/03/20 05:40 03/03/20 05:40: PT 15.8 H, INR 1.66 03/03/20 05:40: Sodium 138.1, Potassium 3.27 L, Chloride 97.3 L, Carbon Dioxide 36.5 H D, Anion Gap 7.57, BUN 27.1 H, Creatinine 0.88, Estimated GFR (MDRD) 62.00, BUN/Creatinine Ratio 30.79, Glucose 130.3 H, Calcium 9.68, Total Bilirubin 0.32, AST 34.2, ALT 15.6, Alkaline Phosphatase 162.4 H, Total Protein 6.34, Albumin 3.19 L, Globulin 3.15, Albumin/Globulin Ratio 1.01 03/03/20 05:40: WBC 11.87 H D, RBC 3.53 L, Hgb 10.3 L, Hct 31.9 L, MCV 90.4, MCH 29.2, MCHC 32.3, RDW Coeff of Elie 14.7, Plt Count 291, Immature Gran % (Auto) 1.3, Neut % (Auto) 92.6 H, Lymph % (Auto) 4.1 L, [place] % (Auto) 1.9, Eos % (Auto) 0.0, Baso % (Auto) 0.1, Neut # (Auto) 11.0 H, Lymph # (Auto) 0.5 L, [place] # (Auto) 0.2 L, Eos # (Auto) 0.0, Baso # (Auto) 0.0, Immature Gran # (Auto) 0.2 ASSESSMENT: Please see below. 1. Acute bronchitis 2. COPD exacerbation PLAN: 1. Antibiotics Zosyn and Ertapenem 2. Continue steroids and potassium 3. NEBS 4. Encourage the patient to eat. Plan and coordination of the patient's care discussed in the presence of Glass Furnace Tender and nurse. CONDITION: Stable SCRIBED BY: LEE RODRIGUEZ Cotton Grader scribed while in presence of service performed by Dr. RAISA RASCON on 03/03/20 ([id number])
--- NOTE | 2020-03-03 09:16 | PN ---
DATE OF SERVICE: 02/28/20 - ADMIT NOTE SUBJECTIVE: The patient came to the emergency room with shortness of breath. The ER attending examined. 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 The patient has severe chronic lung disease. The patient is going to have a Covid-19 test done before she is hospitalized. Will do the rapid test or one with the PCR. In any case, the patient is going to be in the hospital with IV antibiotics, steroids, nebs treatment. Prognosis is poor. ASSESSMENT: She has severe chronic lung disease, chronic intermittent pneumonia likely pseudomonas. PLAN: The patient is going to be on Zosyn. Overall condition is stable. TIME SPENT: More than 30 minutes. Plan and coordination of the patient's care discussed in the presence of nurse. ANETA
--- NOTE | 2020-03-03 09:27 | PN ---
DATE OF SERVICE: 02/29/20 SUBJECTIVE: The patient was seen and examined with the nurse practitioner. The patient's condition seems to be improving. She is feeling somewhat better. She is a little short of breath with little exertion. The patient still has some pleuritic pain, much less than before. Continue Zosyn, steroids, nebs, oxygen supplement. Covid was negative. TIME SPENT: More than 30 minutes. Plan and coordination of the patient's care discussed in the presence of nurse. ANETA
--- NOTE | 2020-03-03 09:41 | PN ---
DATE OF SERVICE: 03/01/20 SUBJECTIVE: 79-year-old white female hospitalized with COPD exacerbation. The patient's condition has improved and her appetite has improved. The patient doesn't have any fever, chills. No PND, no orthopnea. Still she has some pleuritic pain. PHYSICAL EXAMINATION: VITAL SIGNS: Temperature 98.3, pulse 80, respiratory rate 18, BP 124/60, pulse ox 94%. HEENT: Head normocephalic, atraumatic. Eyes: Extraocular muscles are intact. Pupils are equal, round and reactive to light and accommodation. Ears: No lesions. Nose appeared normal. Throat: No exudate or erythema. NECK: Supple. No JVD, no carotid bruit. No lymphadenopathy or thyromegaly. LUNGS: Decreased breath sounds with mild wheeze. Percussion note normal. Chest symmetrical. HEART: S1, S2, no S3. No murmurs. No cyanosis or clubbing. No ascites. Pulses: Dorsalis pedis and posterior tibial pulses +1 to +2 bilaterally. ABDOMEN: Soft. Nontender. Bowel sounds active. No CVA tenderness. No mass felt. EXTREMITIES: No edema. Full range of motion of all extremities, equal. NEUROLOGIC: No focal deficit. Cranial nerves II through XII are grossly intact. No headache, no double vision or headache. SKIN: Not dry. Intact. Turgor - normal. LYMPHATIC: No palpable lymph nodes/no lymphedema. MUSCULOSKELETAL: Normal joints with no swelling. Muscle tone is normal. LABS: Hemoglobin 10.6, hematocrit 32, WBC 24,000, normal differential. Creatinine 0.9, BUN 20, potassium 4.1. ASSESSMENT: 1. Acute COPD with exacerbation. 2. Chronic lung disease. 3. Recurrent pneumonia, Pseudomonas PLAN: 1. Continue antibiotics, steroids, nebs. 2. Encourage the patient to eat and gain weight. CONDITION: Stable. TIME SPENT: More than 30 minutes. Plan and coordination of the patient's care discussed in the presence of nurse. ANETA
--- NOTE | 2020-03-03 09:44 | PN ---
DATE OF SERVICE: 03/02/20 SUBJECTIVE: 79-year-old white female hospitalized with acute exacerbation of COPD. The patient's condition has improved. Her appetite has improved. She is up and about doing well. She is Covid negative. The patient was seen and examined with the nurse practitioner. Condition is stable. TIME SPENT: More than 30 minutes. Plan and coordination of the patient's care discussed in the presence of nurse. ANETA
[2020-03-03] MEDS: K-DUR PO SCH (17:07)
[2020-03-03] MEDS: COUMADIN PO SCH (17:09)
[2020-03-04] MEDS ORDERED: IMODIUM PO STA (00:10)
[2020-03-04] MEDS: DUONEB NEB SCH ×3 (05:18→19:15)
[2020-03-04] MEDS: PULMICORT 0.5 MG/2 ML NEB SCH ×2 (05:18→19:15)
[2020-03-04 06:10] LABS: BASOPHILS % (AUTO) 0.1 % (0.0-3.0); EOSINOPHILS % (AUTO) 0.1 % (0.0-7.0); HEMOGLOBIN 10.4 g/dl (12.0-16.0); IMMATURE GRANULOCYTE # (AUTO) 0.1 (0.0-1.0); LYMPHOCYTES # (AUTO) 1.2 K/uL (0.60-3.4); MEAN CORPUSCULAR HEMOGLOBIN 29.1 pg (27.0-31.0); MEAN CORPUSCULAR HGB CONC 32.5 (31.8-35.4); MEAN CORPUSCULAR VOLUME 89.6 fl (81.0-99.0); MONOCYTES # (AUTO) 0.8 K/uL (0.4-2.0); MONOCYTES % (AUTO) 6.2 (0-10); NEUTROPHILS # (AUTO) 10.9 K/ul (2.0-6.9); NEUTROPHILS % (AUTO) 83.6 % (42.2-75.2); PLATELET COUNT 267 10^3/uL (140-440); RDW COEFFICIENT OF VARIATION 14.4 % (11.6-14.8); RED BLOOD COUNT 3.57 10^6/ul (4.20-5.40); WHITE BLOOD COUNT 13.07 K/ul (4.6-10.2)
[2020-03-04 06:21] LABS: PROTHROMBIN TIME 15.5 SEC (9.3-11.0)
[2020-03-04] MEDS: ZOSYN 4.5 GM 4.5 GM in SODIUM CHLORIDE 100 ML IV SCH (06:24)
[2020-03-04] MEDS: PROTONIX PO SCH ×2 (06:25→16:56)
[2020-03-04] MEDS: LASIX TAB PO SCH (06:25)
[2020-03-04 06:26] LABS: ALANINE AMINOTRANSFERASE 19.6 U/L (0-35); ALBUMIN 3.11 g/dL (3.5-5.0); ALKALINE PHOSPHATASE 152.2 U/L (53-141); ASPARTATE AMINO TRANSFERASE 31.7 U/L (14-36); BILIRUBIN,TOTAL 0.33 mg/dL (0.2-1.3); BLOOD UREA NITROGEN 25.7 mg/dL (7-17); CALCIUM 9.59 mg/dL (8.4-10.2); CARBON DIOXIDE 35.1 mmol/L (22-30.0); CHLORIDE 95.9 mmol/L (98-107); CREATININE 0.74 mg/dL (0.60-1.30); GLUCOSE 87.3 mg/dL (74-106); POTASSIUM 3.15 mmol/L (3.5-5.1); SODIUM 135.4 mmol/L (134.5-145); TOTAL PROTEIN 6.08 g/dL (6.3-8.2)
[2020-03-04] MEDS: MERREM 1 GM/50 ML NACL 1 GM/50 ML BAG IV SCH ×2 (08:39→20:25)
[2020-03-04] MEDS: ULTRAM PO SCH ×2 (08:40→20:25)
[2020-03-04] MEDS: CLARITIN PO SCH (08:40)
[2020-03-04] MEDS: PREDNISONE PO SCH (08:40)
[2020-03-04] MEDS: COREG PO SCH ×2 (08:40→16:56)
[2020-03-04] MEDS: K-DUR PO SCH ×2 (08:40→16:57)
[2020-03-04] MEDS: MUCINEX PO SCH ×2 (08:40→20:25)
[2020-03-04] MEDS: XANAX PO SCH ×3 (08:40→20:25)
[2020-03-04] MEDS: FLORASTOR PO SCH ×2 (08:40→20:25)
[2020-03-04] MEDS: BRIMONIDINE TARTRATE 0.2% OPTH SOL EACHEYE SCH ×2 (08:41→20:24)
[2020-03-04] MEDS: COUMADIN PO SCH (16:57)
[2020-03-04] MEDS: PHENERGAN WITH CODEINE 6.25/10 MG/5 ML PO PRN (21:43)
[2020-03-05] MEDS: PULMICORT 0.5 MG/2 ML NEB SCH ×2 (04:48→19:20)
[2020-03-05] MEDS: DUONEB NEB SCH ×3 (04:48→19:20)
[2020-03-05 05:35] LABS: BASOPHILS % (AUTO) 0.1 % (0.0-3.0); EOSINOPHILS # (AUTO) 0.1 K/ul (0.0-0.7); EOSINOPHILS % (AUTO) 0.7 % (0.0-7.0); HEMATOCRIT 34.5 % (37.0-47.0); HEMOGLOBIN 10.8 g/dl (12.0-16.0); IMMATURE GRANULOCYTE # (AUTO) 0.2 (0.0-1.0); IMMATURE GRANULOCYTE % (AUTO) 1.6 % (0.0-5.0); LYMPHOCYTES # (AUTO) 1.3 K/uL (0.60-3.4); LYMPHOCYTES % (AUTO) 11.1 (10.0-50.0); MEAN CORPUSCULAR HEMOGLOBIN 28.6 pg (27.0-31.0); MEAN CORPUSCULAR HGB CONC 31.3 (31.8-35.4); MEAN CORPUSCULAR VOLUME 91.5 fl (81.0-99.0); MONOCYTES % (AUTO) 8.3 (0-10); NEUTROPHILS # (AUTO) 9.4 K/ul (2.0-6.9); NEUTROPHILS % (AUTO) 78.2 % (42.2-75.2); PLATELET COUNT 276 10^3/uL (140-440); RDW COEFFICIENT OF VARIATION 14.6 % (11.6-14.8); RED BLOOD COUNT 3.77 10^6/ul (4.20-5.40); WHITE BLOOD COUNT 12.06 K/ul (4.6-10.2)
[2020-03-05] MEDS: PROTONIX PO SCH ×2 (05:40→16:59)
[2020-03-05] MEDS: LASIX TAB PO SCH (05:41)
[2020-03-05 05:51] LABS: ALANINE AMINOTRANSFERASE 19.1 U/L (0-35); ALBUMIN 2.89 g/dL (3.5-5.0); ALKALINE PHOSPHATASE 158.6 U/L (53-141); BILIRUBIN,TOTAL 0.28 mg/dL (0.2-1.3); BLOOD UREA NITROGEN 27.7 mg/dL (7-17); CALCIUM 9.54 mg/dL (8.4-10.2); CARBON DIOXIDE 38.3 mmol/L (22-30.0); CHLORIDE 96.5 mmol/L (98-107); CREATININE 0.76 mg/dL (0.60-1.30); GLUCOSE 76.5 mg/dL (74-106); POTASSIUM 4.03 mmol/L (3.5-5.1); SODIUM 137.6 mmol/L (134.5-145); TOTAL PROTEIN 5.81 g/dL (6.3-8.2)
[2020-03-05] MEDS: MERREM 1 GM/50 ML NACL 1 GM/50 ML BAG IV SCH ×2 (09:10→20:56)
[2020-03-05] MEDS: XANAX PO SCH ×3 (09:11→20:55)
[2020-03-05] MEDS: COREG PO SCH ×2 (09:11→16:59)
[2020-03-05] MEDS: FLORASTOR PO SCH ×2 (09:11→20:55)
[2020-03-05] MEDS: PREDNISONE PO SCH (09:11)
[2020-03-05] MEDS: ULTRAM PO SCH ×2 (09:11→20:55)
[2020-03-05] MEDS: CLARITIN PO SCH (09:12)
[2020-03-05] MEDS: MUCINEX PO SCH ×2 (09:12→20:55)
[2020-03-05] MEDS: K-DUR PO SCH ×2 (09:12→16:59)
[2020-03-05] MEDS: BRIMONIDINE TARTRATE 0.2% OPTH SOL EACHEYE SCH ×2 (09:12→20:56)
[2020-03-05] MEDS: COUMADIN PO SCH (16:59)
[2020-03-05] MEDS: PHENERGAN WITH CODEINE 6.25/10 MG/5 ML PO PRN (21:50)
[2020-03-06] MEDS: PULMICORT 0.5 MG/2 ML NEB SCH ×2 (04:48→20:00)
[2020-03-06] MEDS: DUONEB NEB SCH ×3 (04:48→20:00)
[2020-03-06 05:33] LABS: BASOPHILS % (AUTO) 0.2 % (0.0-3.0); EOSINOPHILS # (AUTO) 0.2 K/ul (0.0-0.7); EOSINOPHILS % (AUTO) 1.7 % (0.0-7.0); HEMOGLOBIN 13.1 g/dl (12.0-16.0); IMMATURE GRANULOCYTE # (AUTO) 0.3 (0.0-1.0); LYMPHOCYTES # (AUTO) 2.2 K/uL (0.60-3.4); LYMPHOCYTES % (AUTO) 15.8 (10.0-50.0); MEAN CORPUSCULAR HGB CONC 31.2 (31.8-35.4); MEAN CORPUSCULAR VOLUME 92.9 fl (81.0-99.0); MONOCYTES % (AUTO) 6.9 (0-10); NEUTROPHILS # (AUTO) 10.1 K/ul (2.0-6.9); NEUTROPHILS % (AUTO) 73.4 % (42.2-75.2); PLATELET COUNT 360 10^3/uL (140-440); RDW COEFFICIENT OF VARIATION 14.6 % (11.6-14.8); RED BLOOD COUNT 4.52 10^6/ul (4.20-5.40); WHITE BLOOD COUNT 13.75 K/ul (4.6-10.2)
[2020-03-06] MEDS: LASIX TAB PO SCH (05:48)
[2020-03-06] MEDS: PROTONIX PO SCH ×2 (05:48→17:16)
[2020-03-06 05:50] LABS: ALANINE AMINOTRANSFERASE 28.9 U/L (0-35); ALBUMIN 4.1 g/dL (3.5-5.0); ALKALINE PHOSPHATASE 223.5 U/L (53-141); ASPARTATE AMINO TRANSFERASE 37.8 U/L (14-36); BILIRUBIN,TOTAL 0.43 mg/dL (0.2-1.3); BLOOD UREA NITROGEN 28.2 mg/dL (7-17); CALCIUM 10.7 mg/dL (8.4-10.2); CARBON DIOXIDE 38.9 mmol/L (22-30.0); CHLORIDE 94.4 mmol/L (98-107); CREATININE 0.64 mg/dL (0.60-1.30); GLUCOSE 79.9 mg/dL (74-106); POTASSIUM 4.19 mmol/L (3.5-5.1); SODIUM 138.6 mmol/L (134.5-145); TOTAL PROTEIN 8.09 g/dL (6.3-8.2)
[2020-03-06 05:51] LABS: PROTHROMBIN TIME 12.7 SEC (9.3-11.0)
[2020-03-06] MEDS: XANAX PO SCH ×3 (08:41→20:46)
[2020-03-06] MEDS: MERREM 1 GM/50 ML NACL 1 GM/50 ML BAG IV SCH ×2 (08:41→20:49)
[2020-03-06] MEDS: K-DUR PO SCH ×2 (08:41→17:16)
[2020-03-06] MEDS: COREG PO SCH ×2 (08:41→17:16)
[2020-03-06] MEDS: FLORASTOR PO SCH ×2 (08:41→20:47)
[2020-03-06] MEDS: PREDNISONE PO SCH (08:42)
[2020-03-06] MEDS: CLARITIN PO SCH (08:42)
[2020-03-06] MEDS: ULTRAM PO SCH ×2 (08:42→20:47)
[2020-03-06] MEDS: MUCINEX PO SCH ×2 (08:42→20:47)
[2020-03-06] MEDS ORDERED: COUMADIN PO ONE (09:03)
--- NOTE | 2020-03-06 09:28 | PCM.PROG ---
Attending Provider: ATTENDING PROVIDER: Dr. RAISA RASCON This patient is seen with Zuly Henry, Nurse Practitioner. DATE OF SERVICE: 03/06/20 SUBJECTIVE: This 79 year old /WHITE F was hospitalized 02/28/20. The patient is resting comfortably. She reports that shortness of breath and cough is better. She is feeling better. REVIEW OF SYSTEMS: CONSTITUTIONAL: No night sweats. No fatigue, malaise, lethargy. No fever or chills. Weakness. HEENT: Eyes: No visual changes. No eye pain. No eye discharge. ENT: No runny nose. No epistaxis. No sinus pain. No odynophagia. No congestion. RESPIRATORY: Cough, no congestion. No hemoptysis. No shortness of breath. CARDIOVASCULAR: No angina symptoms. No CHF symptoms. No atypical chest pain for CAD. No palpitations. No orthopnea.. GASTROINTESTINAL: No abdominal pain. No nausea or vomiting. No diarrhea or constipation. No hematemesis. No hematochezia. GENITOURINARY: No urgency. No frequency. No dysuria. No hematuria. No obs tructive symptoms. No discharge. No pain. No significant abnormal bleeding. MUSCULOSKELETAL: No musculoskeletal pain; no joint swelling. NEUROLOGICAL: Awake, alert, oriented to time, place and person. No headache. No neck pain. No syncope. No seizures. No dizziness. PSYCHIATRIC: Not anxious. No depression. No suicidal thoughts. No homicidal thoughts. SKIN: No rash. No lesions. No wounds. ENDOCRINE: No unexplained weight loss. No weight gain. HEMATOLOGIC/LYMPHATIC: No anemia. No purpura. No petechiae. No prolonged or excessive bleeding. No palpable lymph nodes. PHYSICAL EXAMINATION: GENERAL: The patient is awake, alert and oriented, lying in bed in no distress. VITAL SIGNS: Temperature 97.6 F, Pulse 85, Respiratory Rate 20, BP 154/78, Pulse Ox 97% HEENT: Head normocephalic, atraumatic. Eyes: Extraocular muscles are intact. Pupils are equal, round and reactive to light and accommodation. Ears: No lesions. Nose appeared normal. Throat: No exudate or erythema. NECK: Supple. No JVD, no carotid bruit. No lymphadenopathy or thyromegaly. LUNGS: Diminished breath sounds, improved. Clear to auscultation. Percussion note normal. Chest symmetrical. HEART: S1, S2, no S3. No murmurs. No cyanosis or clubbing. No ascites. Pulses: Dorsalis pedis and posterior tibial pulses +1 to +2 both sides. ABDOMEN: Soft. Non-tender. Bowel sounds active. No CVA tenderness. No mass felt. EXTREMITIES: No edema. Full range of motion of all extremities, equal. NEUROLOGIC: No focal deficit. Cranial nerves II through XII are grossly intact. No headache, no double vision or headache. SKIN: Not dry. Intact. Turgor-normal. LYMPHATIC: No palpable lymph nodes/no lymphedema. MUSCULOSKELETAL: Normal joints with no swelling. Muscle tone is normal. LAB REVIEW: 03/06/20 04:45 03/06/20 04:45 03/06/20 04:45: PT 12.7 H, INR 1.32 03/06/20 04:45: Sodium 138.6, Potassium 4.19, Chloride 94.4 L, Carbon Dioxide 38.9 H, Anion Gap 9.49, BUN 28.2 H, Creatinine 0.64, Estimated GFR (MDRD) 90.00, BUN/Creatinine Ratio 44.06, Glucose 79.9, Calcium 10.70 H, Total Bilirubin 0.43, AST 37.8 H, ALT 28.9, Alkaline Phosphatase 223.5 H D, Total Protein 8.09, Albumin 4.10, Globulin 3.99, Albumin/Globulin Ratio 1.02 03/06/20 04:45: WBC 13.75 H, RBC 4.52, Hgb 13.1, Hct 42.0 D, MCV 92.9, MCH 29.0, MCHC 31.2 L, RDW Coeff of Elie 14.6, Plt Count 360 D, Immature Gran % (Auto) 2.0, Neut % (Auto) 73.4, Lymph % (Auto) 15.8, [place] % (Auto) 6.9, Eos % (Auto) 1.7, Baso % (Auto) 0.2, Neut # (Auto) 10.1 H, Lymph # (Auto) 2.2, [place] # (Auto) 1.0, Eos # (Auto) 0.2, Baso # (Auto) 0.0, Immature Gran # (Auto) 0.3 ASSESSMENT: Please see below. 1. Bilateral pneumonia 2. Severe COPD 3. History of DVT/PE 4. Hypertension 5. Anxiety PLAN: 1. 6mg of Coumadin today 2. Repeat INR tomorrow. Plan and coordination of the patient's care discussed in the presence of Coil Maker and nurse. SCRIBED BY: Luis REDD scribed while in presence of service performed by Dr. Rascon/Zuly Henry APRN on 03/06/20 ([id number])
[2020-03-06] MEDS: BRIMONIDINE TARTRATE 0.2% OPTH SOL EACHEYE SCH ×2 (10:18→20:48)
--- NOTE | 2020-03-06 11:00 | PN ---
DATE OF SERVICE: 03/04/2020 SUBJECTIVE: The patient's condition is improving. She is up and about with help. Shortness of breath is much less. Coughs occasionally and getting strength back. REVIEW OF SYSTEMS: CONSTITUTIONAL: No night sweats. No fatigue, malaise, lethargy. No fever or chills. HEENT: Eyes: No visual changes. No eye pain. No eye discharge. ENT: No runny nose. No epistaxis. No sinus pain. No sore throat. No odynophagia. No congestion. RESPIRATORY: No cough, no congestion. No hemoptysis. No shortness of breath. CARDIOVASCULAR: No angina symptoms. No CHF symptoms. No atypical chest pain for CAD. No palpitations. No PND. No orthopnea. Pleuritic pain under control. GASTROINTESTINAL: No abdominal pain. No nausea or vomiting. No diarrhea or constipation. No hematemesis. No hematochezia. GENITOURINARY: No urgency. No frequency. No dysuria. No hematuria. No obstructive symptoms. No discharge. No pain. No significant abnormal bleeding. MUSCULOSKELETAL: No musculoskeletal pain; no joint swelling. NEUROLOGICAL: No headache. No neck pain. No syncope. No seizures. No dizziness. PSYCHIATRIC: Not anxious. No depression. No suicidal thoughts. No homicidal thoughts. SKIN: No rash. No lesions. No wounds. ENDOCRINE: No unexplained weight loss. No weight gain. HEMATOLOGIC/LYMPHATIC: No anemia. No purpura. No petechiae. No prolonged or excessive bleeding. No palpable lymph nodes. PHYSICAL EXAMINATION: HEENT: Head normocephalic, atraumatic. Eyes: Extraocular muscles are intact. Pupils are equal, round and reactive to light and accommodation. Ears: No lesions. Nose appeared normal. Throat: No exudate or erythema. NECK: Supple. No JVD, no carotid bruit. No lymphadenopathy or thyromegaly. LUNGS: Decreased breath sounds but clear to auscultation. Percussion note normal. Chest symmetrical. HEART: S1, S2, no S3. No murmurs. No cyanosis or clubbing. No ascites. Pulses: Dorsalis pedis and posterior tibial pulses +1 to +2 bilaterally. ABDOMEN: Soft. Nontender. Bowel sounds active. No CVA tenderness. No mass felt. EXTREMITIES: No edema. Full range of motion of all extremities, equal. NEUROLOGIC: No focal deficit. Cranial nerves II through XII are grossly intact. No headache, no double vision or headache. SKIN: Not dry. Intact. Turgor - normal. LYMPHATIC: No palpable lymph nodes/no lymphedema. MUSCULOSKELETAL: Normal joints with no swelling. Muscle tone is normal. ASSESSMENT: 1. Pneumonia seems to be resolving PLAN: 1. Continue Ertapenem. 2. She is off Zosyn CONDITION: Stable TIME SPENT: More than 30 minutes. Plan and coordination of the patient's care discussed in the presence of nurse. ANETA
--- NOTE | 2020-03-06 11:04 | PN ---
DATE OF SERVICE: 03/05/2020 SUBJECTIVE: 79 year old white female hospitalized with COPD and bronchitis. She has a pseudomonas pneumonitis. She is being treated with Ertapenem. Condition is improving. She is feeling better. Appetite has been improving. REVIEW OF SYSTEMS: CONSTITUTIONAL: No night sweats. Still fatigue. No fever or chills. HEENT: Eyes: No visual changes. No eye pain. No eye discharge. ENT: No runny nose. No epistaxis. No sinus pain. No sore throat. No odynophagia. No congestion. RESPIRATORY: No cough, no congestion. No hemoptysis. Shortness of breath with exertion as usual. CARDIOVASCULAR: No angina symptoms. No CHF symptoms. No atypical chest pain for CAD. No palpitations. No PND. No orthopnea. GASTROINTESTINAL: No abdominal pain. No nausea or vomiting. No diarrhea or constipation. No hematemesis. No hematochezia. GENITOURINARY: No urgency. No frequency. No dysuria. No hematuria. No obstructive symptoms. No discharge. No pain. No significant abnormal bleeding. MUSCULOSKELETAL: No musculoskeletal pain; no joint swelling. NEUROLOGICAL: No headache. No neck pain. No syncope. No seizures. No dizziness. PSYCHIATRIC: Not anxious. No depression. No suicidal thoughts. No homicidal thoughts. SKIN: No rash. No lesions. No wounds. ENDOCRINE: No unexplained weight loss. No weight gain. HEMATOLOGIC/LYMPHATIC: No anemia. No purpura. No petechiae. No prolonged or excessive bleeding. No palpable lymph nodes. PHYSICAL EXAMINATION: VITAL SIGNS: Temperature 97.9, pulse 68, respiratory rate 18, blood pressure 149/73 and pulse ox 99%. HEENT: Head normocephalic, atraumatic. Eyes: Extraocular muscles are intact. Pupils are equal, round and reactive to light and accommodation. Ears: No lesions. Nose appeared normal. Throat: No exudate or erythema. NECK: Supple. No JVD, no carotid bruit. No lymphadenopathy or thyromegaly. LUNGS: Decreased breath sounds with mild wheeze. Percussion note normal. Chest symmetrical. HEART: S1, S2, no S3. No murmurs. No cyanosis or clubbing. No ascites. Pulses: Dorsalis pedis and posterior tibial pulses +1 to +2 bilaterally. ABDOMEN: Soft. Nontender. Bowel sounds active. No CVA tenderness. No mass felt. EXTREMITIES: No edema. Full range of motion of all extremities, equal. NEUROLOGIC: No focal deficit. Cranial nerves II through XII are grossly intact. No headache, no double vision or headache. SKIN: Not dry. Intact. Turgor - normal. LYMPHATIC: No palpable lymph nodes/no lymphedema. MUSCULOSKELETAL: Normal joints with no swelling. Muscle tone is normal. LABS: Hgb 10.8, hct 34, WBC 12,000 normal differential, creatinine 0.7, BUN 27, creatinine 0.7, potassium 4. ASSESSMENT: 1. Acute pneumonitis pseudomonas seems to be improving 2. Severe chronic lung disease PLAN: 1. Continue NEBS 2. Steroids 3. Pulmonary rehab advised. CONDITION: Stable PROGNOSIS: Guarded TIME SPENT: More than 30 minutes. Plan and coordination of the patient's care discussed in the presence of nurse. ANETA
[2020-03-06] MEDS: PHENERGAN WITH CODEINE 6.25/10 MG/5 ML PO PRN (22:11)
[2020-03-07] MEDS: DUONEB NEB SCH ×3 (04:30→19:40)
[2020-03-07] MEDS: PULMICORT 0.5 MG/2 ML NEB SCH ×2 (04:30→19:40)
[2020-03-07] MEDS: PROTONIX PO SCH ×2 (05:33→16:15)
[2020-03-07] MEDS: LASIX TAB PO SCH (05:33)
[2020-03-07 05:35] LABS: BASOPHILS % (AUTO) 0.2 % (0.0-3.0); EOSINOPHILS # (AUTO) 0.3 K/ul (0.0-0.7); EOSINOPHILS % (AUTO) 2.1 % (0.0-7.0); HEMATOCRIT 37.4 % (37.0-47.0); HEMOGLOBIN 11.8 g/dl (12.0-16.0); IMMATURE GRANULOCYTE # (AUTO) 0.2 (0.0-1.0); IMMATURE GRANULOCYTE % (AUTO) 1.4 % (0.0-5.0); LYMPHOCYTES # (AUTO) 2.2 K/uL (0.60-3.4); MEAN CORPUSCULAR HEMOGLOBIN 28.7 pg (27.0-31.0); MEAN CORPUSCULAR HGB CONC 31.6 (31.8-35.4); MONOCYTES # (AUTO) 0.8 K/uL (0.4-2.0); MONOCYTES % (AUTO) 6.3 (0-10); NEUTROPHILS # (AUTO) 9.6 K/ul (2.0-6.9); PLATELET COUNT 316 10^3/uL (140-440); RDW COEFFICIENT OF VARIATION 14.6 % (11.6-14.8); RED BLOOD COUNT 4.11 10^6/ul (4.20-5.40); WHITE BLOOD COUNT 13.17 K/ul (4.6-10.2)
[2020-03-07 05:50] LABS: ALANINE AMINOTRANSFERASE 23.7 U/L (0-35); ALBUMIN 3.9 g/dL (3.5-5.0); ALKALINE PHOSPHATASE 190.7 U/L (53-141); ASPARTATE AMINO TRANSFERASE 33.7 U/L (14-36); BILIRUBIN,TOTAL 0.42 mg/dL (0.2-1.3); BLOOD UREA NITROGEN 21.3 mg/dL (7-17); CALCIUM 10.68 mg/dL (8.4-10.2); CARBON DIOXIDE 38.4 mmol/L (22-30.0); CHLORIDE 92.9 mmol/L (98-107); CREATININE 0.72 mg/dL (0.60-1.30); POTASSIUM 4.29 mmol/L (3.5-5.1); SODIUM 135.4 mmol/L (134.5-145); TOTAL PROTEIN 7.43 g/dL (6.3-8.2)
[2020-03-07 05:55] LABS: PROTHROMBIN TIME 14.9 SEC (9.3-11.0)
--- NOTE | 2020-03-07 09:21 | PN ---
DATE OF SERVICE: 03/04/20 SUBJECTIVE: The patient was seen and examined today. The patient's condition is stable, improving some. Today she feels tired. Yesterday she felt a little bit better. Of note, the patient was Covid negative. REVIEW OF SYSTEMS: CONSTITUTIONAL: Tired feeling. No night sweats. No malaise, lethargy. No fever or chills. HEENT: Eyes: No visual changes. No eye pain. No eye discharge. ENT: No runny nose. No epistaxis. No sinus pain. No sore throat. No odynophagia. No congestion. RESPIRATORY: Coughing is very mild. No hemoptysis. Shortness of breath on exertion. No shortness of breath at rest. CARDIOVASCULAR: No angina symptoms. No CHF symptoms. No atypical chest pain for CAD. No palpitations. No PND. No orthopnea. GASTROINTESTINAL: No abdominal pain. No nausea or vomiting. No diarrhea or constipation. No hematemesis. No hematochezia. GENITOURINARY: No urgency. No frequency. No dysuria. No hematuria. No obstructive symptoms. No discharge. No pain. No significant abnormal bleeding. MUSCULOSKELETAL: No musculoskeletal pain; no joint swelling. NEUROLOGICAL: No headache. No neck pain. No syncope. No seizures. No dizziness. PSYCHIATRIC: Not anxious. No depression. No suicidal thoughts. No homicidal thoughts. SKIN: No rash. No lesions. No wounds. ENDOCRINE: No unexplained weight loss. No weight gain. HEMATOLOGIC/LYMPHATIC: No anemia. No purpura. No petechiae. No prolonged or excessive bleeding. No palpable lymph nodes. PHYSICAL EXAMINATION: HEENT: Head normocephalic, atraumatic. Eyes: Extraocular muscles are intact. Pupils are equal, round and reactive to light and accommodation. Ears: No lesions. Nose appeared normal. Throat: No exudate or erythema. NECK: Supple. No JVD, no carotid bruit. No lymphadenopathy or thyromegaly. LUNGS: Decreased breath sounds but clear to auscultation. Good air entry. Percussion note normal. Chest symmetrical. HEART: S1, S2, no S3. No murmurs. No cyanosis or clubbing. No ascites. Pulses: Dorsalis pedis and posterior tibial pulses +1 to +2 bilaterally. ABDOMEN: Soft. Nontender. Bowel sounds active. No CVA tenderness. No mass felt. EXTREMITIES: No edema. Full range of motion of all extremities, equal. NEUROLOGIC: No focal deficit. Cranial nerves II through XII are grossly intact. No headache, no double vision or headache. SKIN: Not dry. Intact. Turgor - normal. LYMPHATIC: No palpable lymph nodes/no lymphedema. MUSCULOSKELETAL: Normal joints with no swelling. Muscle tone is normal. ASSESSMENT/PLAN: 1. The patient's sputum grew Pseudomonas sensitive to Imipenem and aminoglycosides. To give Ertapenem, continue that. 2. D/C Zosyn. 3. Continue steroids. 4. Continue nebs treatment. 5. Condition improving. The patient's cardiovascular status is stable. Pleuritic pain practically has subsided. TIME SPENT: More than 30 minutes. Plan and coordination of the patient's care discussed in the presence of nurse. ANETA
[2020-03-07] MEDS: MERREM 1 GM/50 ML NACL 1 GM/50 ML BAG IV SCH ×2 (09:53→20:47)
[2020-03-07] MEDS: XANAX PO SCH ×3 (09:53→20:48)
[2020-03-07] MEDS: FLORASTOR PO SCH ×2 (09:53→20:48)
[2020-03-07] MEDS: COREG PO SCH ×2 (09:54→16:15)
[2020-03-07] MEDS: K-DUR PO SCH ×2 (09:54→16:15)
[2020-03-07] MEDS: ULTRAM PO SCH ×2 (09:54→20:48)
[2020-03-07] MEDS: PREDNISONE PO SCH (09:55)
[2020-03-07] MEDS: CLARITIN PO SCH (09:55)
[2020-03-07] MEDS: MUCINEX PO SCH ×2 (09:55→20:48)
[2020-03-07] MEDS: BRIMONIDINE TARTRATE 0.2% OPTH SOL EACHEYE SCH ×2 (10:35→20:47)
--- NOTE | 2020-03-07 11:01 | PN ---
DATE OF SERVICE: 03/06/20 SUBJECTIVE: The patient was seen and examined with the nurse practitioner. The patient's pneumonia Pseudomonas seems to be improving slowly on Ertapenem. Condition is stable. TIME SPENT: More than 30 minutes. Plan and coordination of the patient's care discussed in the presence of nurse. ANETA
--- NOTE | 2020-03-07 11:14 | PCM.PROG ---
Attending Provider: ATTENDING PROVIDER: Dr. RAISA RASCON This patient is seen with Zuly Henry, Nurse Practitioner. DATE OF SERVICE: 03/07/20 SUBJECTIVE: This 79 year old /WHITE F was hospitalized 02/28/20. The patient is resting comfortably. She still has persistent cough. Feeling some better. Still just very weak. REVIEW OF SYSTEMS: CONSTITUTIONAL: No night sweats. No fatigue, malaise, lethargy. No fever or chills. Weakness. HEENT: Eyes: No visual changes. No eye pain. No eye discharge. ENT: No runny nose. No epistaxis. No sinus pain. No odynophagia. No congestion. RESPIRATORY: Cough, no congestion. No hemoptysis. No shortness of breath. CARDIOVASCULAR: No angina symptoms. No CHF symptoms. No atypical chest pain for CAD. No palpitations. No orthopnea.. GASTROINTESTINAL: No abdominal pain. No nausea or vomiting. No diarrhea or constipation. No hematemesis. No hematochezia. GENITOURINARY: No urgency. No frequency. No dysuria. No hematuria. No obstruct cherry symptoms. No discharge. No pain. No significant abnormal bleeding. MUSCULOSKELETAL: No musculoskeletal pain; no joint swelling. NEUROLOGICAL: Awake, alert, oriented to time, place and person. No headache. No neck pain. No syncope. No seizures. No dizziness. PSYCHIATRIC: Not anxious. No depression. No suicidal thoughts. No homicidal thoughts. SKIN: No rash. No lesions. No wounds. ENDOCRINE: No unexplained weight loss. No weight gain. HEMATOLOGIC/LYMPHATIC: No anemia. No purpura. No petechiae. No prolonged or excessive bleeding. No palpable lymph nodes. PHYSICAL EXAMINATION: GENERAL: The patient is awake, alert and oriented, sitting in bed in no distress. VITAL SIGNS: Temperature 97.2 F, Pulse 86, Respiratory Rate 20, BP 155/74, Pulse Ox 97% HEENT: Head normocephalic, atraumatic. Eyes: Extraocular muscles are intact. Pupils are equal, round and reactive to light and accommodation. Ears: No lesions. Nose appeared normal. Throat: No exudate or erythema. NECK: Supple. No JVD, no carotid bruit. No lymphadenopathy or thyromegaly. LUNGS: Diminished breath sounds, improved. Clear to auscultation. Percussion note normal. Chest symmetrical. HEART: S1, S2, no S3. No murmurs. No cyanosis or clubbing. No ascites. Pulses: Dorsalis pedis and posterior tibial pulses +1 to +2 both sides. ABDOMEN: Soft. Non-tender. Bowel sounds active. No CVA tenderness. No mass felt. EXTREMITIES: No edema. Full range of motion of all extremities, equal. NEUROLOGIC: No focal deficit. Cranial nerves II through XII are grossly intact. No headache, no double vision or headache. SKIN: Not dry. Intact. Turgor-normal. LYMPHATIC: No palpable lymph nodes/no lymphedema. MUSCULOSKELETAL: Normal joints with no swelling. Muscle tone is normal. LAB REVIEW: 03/07/20 05:15 03/07/20 05:15 03/07/20 05:15: Sodium 135.4, Potassium 4.29, Chloride 92.9 L, Carbon Dioxide 38.4 H, Anion Gap 8.39, BUN 21.3 H, Creatinine 0.72, Estimated GFR (MDRD) 79.00, BUN/Creatinine Ratio 29.58, Glucose 80.0, Calcium 10.68 H, Total Bilirubin 0.42, AST 33.7, ALT 23.7, Alkaline Phosphatase 190.7 H D, Total Protein 7.43, Albumin 3.90, Globulin 3.53, Albumin/Globulin Ratio 1.10 03/07/20 05:15: PT 14.9 H, INR 1.56 03/07/20 05:15: WBC 13.17 H, RBC 4.11 L, Hgb 11.8 L, Hct 37.4, MCV 91.0, MCH 28.7, MCHC 31.6 L, RDW Coeff of Elie 14.6, Plt Count 316, Immature Gran % (Auto) 1.4, Neut % (Auto) 73.0, Lymph % (Auto) 17.0, [place] % (Auto) 6.3, Eos % (Auto) 2.1, Baso % (Auto) 0.2, Neut # (Auto) 9.6 H, Lymph # (Auto) 2.2, [place] # (Auto) 0.8, Eos # (Auto) 0.3, Baso # (Auto) 0.0, Immature Gran # (Auto) 0.2 ASSESSMENT: Please see below. 1. Bilateral pneumonia 2. Severe COPD 3. History of DVT/PE 4. Hypertension 5. Anxiety PLAN: 1. Repeat chest x-ray today 2. Continue IV antibiotics 3. 6mg Coumadin today Plan and coordination of the patient's care discussed in the presence of Frame Expander and nurse. SCRIBED BY: Luis REDD scribed while in presence of service performed by Dr. Rascon/Zuly Henry APRN on 03/07/20 ([id number])
--- NOTE | 2020-03-07 13:54 | PN ---
DATE OF SERVICE: 03/07/20 SUBJECTIVE: The patient was seen and examined with the nurse practitioner. The patient's condition was continuously improving to some extent. Her appetite has improved. Coughing much less. No fever or chills. No pleuritic pain. TIME SPENT: More than 30 minutes. Plan and coordination of the patient's care discussed in the presence of nurse. ANETA
--- NOTE | 2020-03-07 16:26 | DI ---
EXAM: Chest two view, frontal and lateral views. HISTORY: Shortness of breath. COMPARISON: 02/28/2020. FINDINGS: Heart size normal. Atherosclerotic calcifications present. Calcified granulomatous guzman es noted. There is no vascular congestion. Right upper lung cavitary consolidation again noted. Th ere are patchy opacities in both lung bases. Findings appears similar to the prior study. No pneumo thorax is seen. No acute osseous abnormality identified. Degenerative changes present in the spine with stable mild T9 compression deformity. IMPRESSION: Stable appearance of the chest.
[2020-03-07] MEDS: COUMADIN PO SCH (16:34)
[2020-03-07] MEDS ORDERED: COUMADIN PO ONE (17:00)
[2020-03-07] MEDS: PHENERGAN WITH CODEINE 6.25/10 MG/5 ML PO PRN (21:45)
[2020-03-08] MEDS: PULMICORT 0.5 MG/2 ML NEB SCH ×2 (04:40→19:33)
[2020-03-08] MEDS: DUONEB NEB SCH ×3 (04:40→19:33)
[2020-03-08 04:51] LABS: BASOPHILS % (AUTO) 0.2 % (0.0-3.0); EOSINOPHILS # (AUTO) 0.1 K/ul (0.0-0.7); EOSINOPHILS % (AUTO) 0.6 % (0.0-7.0); HEMATOCRIT 35.2 % (37.0-47.0); HEMOGLOBIN 11.2 g/dl (12.0-16.0); IMMATURE GRANULOCYTE # (AUTO) 0.1 (0.0-1.0); IMMATURE GRANULOCYTE % (AUTO) 1.2 % (0.0-5.0); LYMPHOCYTES # (AUTO) 1.7 K/uL (0.60-3.4); MEAN CORPUSCULAR HEMOGLOBIN 28.8 pg (27.0-31.0); MEAN CORPUSCULAR HGB CONC 31.8 (31.8-35.4); MEAN CORPUSCULAR VOLUME 90.5 fl (81.0-99.0); MONOCYTES # (AUTO) 0.7 K/uL (0.4-2.0); MONOCYTES % (AUTO) 6.2 (0-10); NEUTROPHILS # (AUTO) 8.7 K/ul (2.0-6.9); NEUTROPHILS % (AUTO) 76.8 % (42.2-75.2); PLATELET COUNT 334 10^3/uL (140-440); RDW COEFFICIENT OF VARIATION 14.6 % (11.6-14.8); RED BLOOD COUNT 3.89 10^6/ul (4.20-5.40); WHITE BLOOD COUNT 11.29 K/ul (4.6-10.2)
[2020-03-08 05:06] LABS: ALANINE AMINOTRANSFERASE 26.3 U/L (0-35); ALBUMIN 3.51 g/dL (3.5-5.0); ALKALINE PHOSPHATASE 176.4 U/L (53-141); ASPARTATE AMINO TRANSFERASE 34.3 U/L (14-36); BILIRUBIN,TOTAL 0.34 mg/dL (0.2-1.3); BLOOD UREA NITROGEN 24.1 mg/dL (7-17); CALCIUM 10.36 mg/dL (8.4-10.2); CARBON DIOXIDE 35.1 mmol/L (22-30.0); CHLORIDE 93.3 mmol/L (98-107); CREATININE 0.83 mg/dL (0.60-1.30); GLUCOSE 108.3 mg/dL (74-106); POTASSIUM 4.14 mmol/L (3.5-5.1); SODIUM 133.5 mmol/L (134.5-145); TOTAL PROTEIN 6.65 g/dL (6.3-8.2)
[2020-03-08 05:08] LABS: PROTHROMBIN TIME 17.6 SEC (9.3-11.0)
[2020-03-08] MEDS: PROTONIX PO SCH ×2 (06:07→17:03)
[2020-03-08] MEDS: LASIX TAB PO SCH (06:07)
[2020-03-08] MEDS: MERREM 1 GM/50 ML NACL 1 GM/50 ML BAG IV SCH ×2 (08:21→20:42)
[2020-03-08] MEDS: BRIMONIDINE TARTRATE 0.2% OPTH SOL EACHEYE SCH ×2 (08:22→20:42)
[2020-03-08] MEDS: ULTRAM PO SCH ×2 (08:22→20:43)
[2020-03-08] MEDS: CLARITIN PO SCH (08:22)
[2020-03-08] MEDS: FLORASTOR PO SCH ×2 (08:22→20:42)
[2020-03-08] MEDS: MUCINEX PO SCH ×2 (08:22→20:42)
[2020-03-08] MEDS: XANAX PO SCH ×3 (08:22→20:43)
[2020-03-08] MEDS: COREG PO SCH ×2 (08:35→17:03)
[2020-03-08] MEDS: PREDNISONE PO SCH (08:36)
[2020-03-08] MEDS: K-DUR PO SCH ×2 (08:36→17:03)
[2020-03-08] MEDS: COUMADIN PO SCH (17:04)
[2020-03-09] MEDS: PULMICORT 0.5 MG/2 ML NEB SCH ×2 (04:44→19:24)
[2020-03-09] MEDS: DUONEB NEB SCH ×3 (04:44→19:24)
[2020-03-09 05:23] LABS: BASOPHILS % (AUTO) 0.2 % (0.0-3.0); EOSINOPHILS # (AUTO) 0.1 K/ul (0.0-0.7); EOSINOPHILS % (AUTO) 1.2 % (0.0-7.0); HEMATOCRIT 34.7 % (37.0-47.0); IMMATURE GRANULOCYTE # (AUTO) 0.1 (0.0-1.0); IMMATURE GRANULOCYTE % (AUTO) 1.4 % (0.0-5.0); LYMPHOCYTES # (AUTO) 1.7 K/uL (0.60-3.4); LYMPHOCYTES % (AUTO) 16.7 (10.0-50.0); MEAN CORPUSCULAR HEMOGLOBIN 28.9 pg (27.0-31.0); MEAN CORPUSCULAR HGB CONC 31.7 (31.8-35.4); MEAN CORPUSCULAR VOLUME 91.3 fl (81.0-99.0); MONOCYTES % (AUTO) 9.5 (0-10); NEUTROPHILS # (AUTO) 7.2 K/ul (2.0-6.9); PLATELET COUNT 346 10^3/uL (140-440); RDW COEFFICIENT OF VARIATION 14.9 % (11.6-14.8); WHITE BLOOD COUNT 10.15 K/ul (4.6-10.2)
[2020-03-09 05:34] LABS: PROTHROMBIN TIME 20.1 SEC (9.3-11.0)
[2020-03-09 05:36] LABS: ALANINE AMINOTRANSFERASE 25.1 U/L (0-35); ALBUMIN 3.43 g/dL (3.5-5.0); ALKALINE PHOSPHATASE 201.6 U/L (53-141); ASPARTATE AMINO TRANSFERASE 38.3 U/L (14-36); BILIRUBIN,TOTAL 0.3 mg/dL (0.2-1.3); BLOOD UREA NITROGEN 29.6 mg/dL (7-17); CALCIUM 9.98 mg/dL (8.4-10.2); CHLORIDE 95.2 mmol/L (98-107); CREATININE 0.82 mg/dL (0.60-1.30); GLUCOSE 87.9 mg/dL (74-106); POTASSIUM 4.85 mmol/L (3.5-5.1); TOTAL PROTEIN 6.62 g/dL (6.3-8.2)
[2020-03-09] MEDS: PROTONIX PO SCH ×2 (05:57→17:12)
[2020-03-09] MEDS: LASIX TAB PO SCH (05:57)
[2020-03-09] MEDS: PREDNISONE PO SCH (09:15)
[2020-03-09] MEDS: COREG PO SCH ×2 (09:15→17:12)
[2020-03-09] MEDS: XANAX PO SCH ×3 (09:15→21:04)
[2020-03-09] MEDS: ULTRAM PO SCH ×2 (09:15→21:04)
[2020-03-09] MEDS: MUCINEX PO SCH ×2 (09:15→21:04)
[2020-03-09] MEDS: K-DUR PO SCH (09:15)
[2020-03-09] MEDS: FLORASTOR PO SCH ×2 (09:15→21:04)
[2020-03-09] MEDS: BRIMONIDINE TARTRATE 0.2% OPTH SOL EACHEYE SCH ×2 (09:16→21:05)
[2020-03-09] MEDS: CLARITIN PO SCH (09:16)
[2020-03-09] MEDS: MERREM 1 GM/50 ML NACL 1 GM/50 ML BAG IV SCH (09:18)
--- NOTE | 2020-03-09 10:17 | PCM.PROG ---
Attending Provider: ATTENDING PROVIDER: Dr. RAISA RASCON This patient is seen with Zuly Henry, Nurse Practitioner. DATE OF SERVICE: 03/09/20 SUBJECTIVE: This 79 year old /WHITE F was hospitalized 02/28/20. The patient is resting comfortably. Today is the 10th day of Merrem. Clinically she has improved. Shortness of breath is better. She is speaking without difficulty. She has productive cough with thick yellow sputum. REVIEW OF SYSTEMS: CONSTITUTIONAL: No night sweats. No fatigue, malaise, lethargy. No fever or chills. Weakness. HEENT: Eyes: No visual changes. No eye pain. No eye discharge. ENT: No runny nose. No epistaxis. No sinus pain. No odynophagia. No congestion. RESPIRATORY: Cough, no congestion. No hemoptysis. No shortness of breath. CARDIOVASCULAR: No angina symptoms. No CHF symptoms. No atypical chest pain for CAD. No palpitations. No orthopnea.. GASTROINTESTINAL: No abdominal pain. No nausea or vomiting. No diarrhea or constipation. No hematemesis. No hematochezia. GENITOURINARY: No urgency. No frequency. No dysuria. No hematuria. No ob structive symptoms. No discharge. No pain. No significant abnormal bleeding. MUSCULOSKELETAL: No musculoskeletal pain; no joint swelling. NEUROLOGICAL: Awake, alert, oriented to time, place and person. No headache. No neck pain. No syncope. No seizures. No dizziness. PSYCHIATRIC: Not anxious. No depression. No suicidal thoughts. No homicidal thoughts. SKIN: No rash. No lesions. No wounds. ENDOCRINE: No unexplained weight loss. No weight gain. HEMATOLOGIC/LYMPHATIC: No anemia. No purpura. No petechiae. No prolonged or excessive bleeding. No palpable lymph nodes. PHYSICAL EXAMINATION: GENERAL: The patient is awake, alert and oriented, lying in bed in no distress. VITAL SIGNS: Temperature 98.6 F, Pulse 74, Respiratory Rate 20, BP 121/60, Pulse Ox 96% HEENT: Head normocephalic, atraumatic. Eyes: Extraocular muscles are intact. Pupils are equal, round and reactive to light and accommodation. Ears: No lesions. Nose appeared normal. Throat: No exudate or erythema. NECK: Supple. No JVD, no carotid bruit. No lymphadenopathy or thyromegaly. LUNGS: Diminished breath sounds. Rhonchi on the right. Clear to auscultation. Percussion note normal. Chest symmetrical. HEART: S1, S2, no S3. No murmurs. No cyanosis or clubbing. No ascites. Pulses: Dorsalis pedis and posterior tibial pulses +1 to +2 both sides. ABDOMEN: Soft. Non-tender. Bowel sounds active. No CVA tenderness. No mass felt. EXTREMITIES: No edema. Full range of motion of all extremities, equal. NEUROLOGIC: No focal deficit. Cranial nerves II through XII are grossly intact. No headache, no double vision or headache. SKIN: Not dry. Intact. Turgor-normal. LYMPHATIC: No palpable lymph nodes/no lymphedema. MUSCULOSKELETAL: Normal joints with no swelling. Muscle tone is normal. LAB REVIEW: 03/09/20 05:18 03/09/20 05:18 03/09/20 05:18: Sodium 135.0, Potassium 4.85, Chloride 95.2 L, Carbon Dioxide 37.0 H, Anion Gap 7.65, BUN 29.6 H, Creatinine 0.82, Estimated GFR (MDRD) 68.00, BUN/Creatinine Ratio 36.09, Glucose 87.9, Calcium 9.98, Total Bilirubin 0.30, AST 38.3 H, ALT 25.1, Alkaline Phosphatase 201.6 H D, Total Protein 6.62, Albumin 3.43 L, Globulin 3.19, Albumin/Globulin Ratio 1.07 03/09/20 05:18: PT 20.1 H, INR 2.14 03/09/20 05:18: WBC 10.15, RBC 3.80 L, Hgb 11.0 L, Hct 34.7 L, MCV 91.3, MCH 28.9, MCHC 31.7 L, RDW Coeff of Elie 14.9 H, Plt Count 346, Immature Gran % (Auto) 1.4, Neut % (Auto) 71.0, Lymph % (Auto) 16.7, [place] % (Auto) 9.5, Eos % (Auto) 1.2, Baso % (Auto) 0.2, Neut # (Auto) 7.2 H, Lymph # (Auto) 1.7, [place] # (Auto) 1.0, Eos # (Auto) 0.1, Baso # (Auto) 0.0, Immature Gran # (Auto) 0.1 ASSESSMENT: Please see below. 1. Bilateral pneumonia 2. Severe COPD 3. History of PE/DVT 4. Hypertension PLAN: 1. Continue Merrem. 2. Potassium 20meq daily 3. Encourage the patient to be up and about. Plan and coordination of the patient's care discussed in the presence of Creasing Machine Operator and nurse. SCRIBED BY: LEE RODRIGUEZ Operational Risk Analyst scribed while in presence of service performed by Dr. Rascon/Zuly Henry APRN on 03/09/20 ([id number])
--- NOTE | 2020-03-09 11:34 | PN ---
DATE OF SERVICE: 03/08/2020 SUBJECTIVE: The patient was seen and examined today. The patient's condition is improving. She is eating better. She is on Ertapenem. We will continue Ertapenem. REVIEW OF SYSTEMS: CONSTITUTIONAL: No night sweats. No fatigue, malaise, lethargy. No fever or chills. HEENT: Eyes: No visual changes. No eye pain. No eye discharge. ENT: No runny nose. No epistaxis. No sinus pain. No sore throat. No odynophagia. No congestion. RESPIRATORY: Mild cough, no congestion. No hemoptysis. Shortness of breath on minimal exertion which she has, not short of breath at rest and there is no pleuritic pain. CARDIOVASCULAR: No angina symptoms. No CHF symptoms. No atypical chest pain for CAD. No palpitations. No PND. No orthopnea. GASTROINTESTINAL: No abdominal pain. No nausea or vomiting. No diarrhea or constipation. No hematemesis. No hematochezia. GENITOURINARY: No urgency. No frequency. No dysuria. No hematuria. No obstructive symptoms. No discharge. No pain. No significant abnormal bleeding. MUSCULOSKELETAL: No musculoskeletal pain; no joint swelling. NEUROLOGICAL: No headache. No neck pain. No syncope. No seizures. No dizziness. PSYCHIATRIC: Not anxious. No depression. No suicidal thoughts. No homicidal thoughts. SKIN: No rash. No lesions. No wounds. ENDOCRINE: No unexplained weight loss. No weight gain. HEMATOLOGIC/LYMPHATIC: No anemia. No purpura. No petechiae. No prolonged or excessive bleeding. No palpable lymph nodes. PHYSICAL EXAMINATION: VITALS: Temperature 97.2, pulse 52, respiratory rate 20, blood pressure 144/72 and pulse ox 97% on 2 liters. HEENT: Head normocephalic, atraumatic. Eyes: Extraocular muscles are intact. Pupils are equal, round and reactive to light and accommodation. Ears: No lesions. Nose appeared normal. Throat: No exudate or erythema. NECK: Supple. No JVD, no carotid bruit. No lymphadenopathy or thyromegaly. LUNGS:Decreased breath sounds but clear with mild wheeze. Percussion note normal. Chest symmetrical. HEART: S1, S2, no S3. No murmurs. No cyanosis or clubbing. No ascites. Pulses: Dorsalis pedis and posterior tibial pulses +1 to +2 bilaterally. ABDOMEN: Soft. Nontender. Bowel sounds active. No CVA tenderness. No mass felt. EXTREMITIES: No edema. Full range of motion of all extremities, equal. NEUROLOGIC: No focal deficit. Cranial nerves II through XII are grossly intact. No headache, no double vision or headache. SKIN: Not dry. Intact. Turgor - normal. LYMPHATIC: No palpable lymph nodes/no lymphedema. MUSCULOSKELETAL: Normal joints with no swelling. Muscle tone is normal. LABS: Hgb 11.2, hct 35, WBC 11,200 normal differential, creatinine 0.8, BUN 24, potassium 4.1. GFR 67cc per minute. ASSESSMENT: 1. Acute pneumonia which is pseudomonas by cultures which is the same thing she had two to three times on prior hospitalization. PLAN: 1. Continue Ertapenem for at least minimal of 10 days CONDITION: Stable, appetite improving. TIME SPENT: More than 30 minutes. Plan and coordination of the patient's care discussed in the presence of nurse. ANETA
[2020-03-09] MEDS: COUMADIN PO SCH (17:12)
[2020-03-09] MEDS: PHENERGAN WITH CODEINE 6.25/10 MG/5 ML PO PRN (20:39)
[2020-03-10] MEDS: PULMICORT 0.5 MG/2 ML NEB SCH ×2 (04:55→19:55)
[2020-03-10] MEDS: DUONEB NEB SCH ×3 (04:55→19:55)
[2020-03-10 05:46] LABS: BASOPHILS % (AUTO) 0.1 % (0.0-3.0); EOSINOPHILS # (AUTO) 0.1 K/ul (0.0-0.7); EOSINOPHILS % (AUTO) 0.7 % (0.0-7.0); HEMATOCRIT 33.8 % (37.0-47.0); HEMOGLOBIN 10.7 g/dl (12.0-16.0); IMMATURE GRANULOCYTE # (AUTO) 0.1 (0.0-1.0); IMMATURE GRANULOCYTE % (AUTO) 0.9 % (0.0-5.0); LYMPHOCYTES # (AUTO) 1.7 K/uL (0.60-3.4); LYMPHOCYTES % (AUTO) 11.8 (10.0-50.0); MEAN CORPUSCULAR HEMOGLOBIN 28.8 pg (27.0-31.0); MEAN CORPUSCULAR HGB CONC 31.7 (31.8-35.4); MEAN CORPUSCULAR VOLUME 90.9 fl (81.0-99.0); MONOCYTES % (AUTO) 7.1 (0-10); NEUTROPHILS # (AUTO) 11.1 K/ul (2.0-6.9); NEUTROPHILS % (AUTO) 79.4 % (42.2-75.2); PLATELET COUNT 352 10^3/uL (140-440); RDW COEFFICIENT OF VARIATION 14.6 % (11.6-14.8); RED BLOOD COUNT 3.72 10^6/ul (4.20-5.40); WHITE BLOOD COUNT 14.03 K/ul (4.6-10.2)
[2020-03-10 05:58] LABS: ALANINE AMINOTRANSFERASE 23.7 U/L (0-35); ALBUMIN 3.58 g/dL (3.5-5.0); ALKALINE PHOSPHATASE 188.2 U/L (53-141); BILIRUBIN,TOTAL 0.43 mg/dL (0.2-1.3); BLOOD UREA NITROGEN 25.8 mg/dL (7-17); CHLORIDE 96.3 mmol/L (98-107); CREATININE 0.67 mg/dL (0.60-1.30); GLUCOSE 80.6 mg/dL (74-106); POTASSIUM 4.34 mmol/L (3.5-5.1); SODIUM 134.1 mmol/L (134.5-145); TOTAL PROTEIN 6.81 g/dL (6.3-8.2)
[2020-03-10 06:02] LABS: PROTHROMBIN TIME 20.8 SEC (9.3-11.0)
[2020-03-10] MEDS: LASIX TAB PO SCH (06:02)
[2020-03-10] MEDS: PROTONIX PO SCH ×2 (06:02→16:25)
[2020-03-10] MEDS: K-DUR PO SCH (09:45)
[2020-03-10] MEDS: MUCINEX PO SCH ×2 (09:45→21:35)
[2020-03-10] MEDS: COREG PO SCH ×2 (09:45→16:25)
[2020-03-10] MEDS: ULTRAM PO SCH ×2 (09:45→21:34)
[2020-03-10] MEDS: CLARITIN PO SCH (09:45)
[2020-03-10] MEDS: PREDNISONE PO SCH (09:45)
[2020-03-10] MEDS: FLORASTOR PO SCH ×2 (09:45→21:32)
[2020-03-10] MEDS: XANAX PO SCH ×3 (09:45→21:34)
[2020-03-10] MEDS: BRIMONIDINE TARTRATE 0.2% OPTH SOL EACHEYE SCH ×2 (09:46→22:00)
--- NOTE | 2020-03-10 09:55 | PCM.PROG ---
Attending Provider: ATTENDING PROVIDER: Dr. RAISA RASCON DATE OF SERVICE: 03/10/20 SUBJECTIVE: This 79 year old /WHITE F was hospitalized 02/28/20 with COPD and pneumonia pseudomonas. Condition is improving. REVIEW OF SYSTEMS: CONSTITUTIONAL: No night sweats. No fatigue, malaise, lethargy. No fever or chills. HEENT: Eyes: No visual changes. No eye pain. No eye discharge. ENT: No runny nose. No epistaxis. No sinus pain. No odynophagia. No congestion. RESPIRATORY: No cough, no congestion. No hemoptysis. Still shortness of breath on exertion, no shortness of breath at rest. Able to speak sentences without shortness of breath. CARDIOVASCULAR: No angina symptoms. No CHF symptoms. No atypical chest pain for CAD. No palpitations. No orthopnea.. GASTROINTESTINAL: No abdominal pain. No nausea or vomiting. No diarrhea or constipation. No hematemesis. No hematochezia. GENITOURINARY: No urgency. No frequency. No dysuria. No hematuria. No obstructive symptoms. No discharge. No pain. No significant abnormal bleeding. MUSCULOSKELETAL: No musculoskeletal pain; no joint swelling. NEUROLOGICAL: Awake, alert, oriented to time, place and person. No headache. No neck pain. No syncope. No seizures. No dizziness. PSYCHIATRIC: Not anxious. No depression. No suicidal thoughts. No homicidal thoughts. SKIN: No rash. No lesions. No wounds. ENDOCRINE: No unexplained weight loss. No weight gain. HEMATOLOGIC/LYMPHATIC: No anemia. No purpura. No petechiae. No prolonged or e xcessive bleeding. No palpable lymph nodes. PHYSICAL EXAMINATION: GENERAL: The patient is awake, alert and oriented, lying in bed in no distress. VITAL SIGNS: Temperature 97.9 F, Pulse 70, Respiratory Rate 20, BP 135/77, Pulse Ox 93% HEENT: Head normocephalic, atraumatic. Eyes: Extraocular muscles are intact. Pupils are equal, round and reactive to light and accommodation. Ears: No lesions. Nose appeared normal. Throat: No exudate or erythema. NECK: Supple. No JVD, no carotid bruit. No lymphadenopathy or thyromegaly. LUNGS: Decreased breath sounds. Clear to auscultation. Percussion note normal. Chest symmetrical. HEART: S1, S2, no S3. No murmurs. No cyanosis or clubbing. No ascites. Pulses: Dorsalis pedis and posterior tibial pulses +1 to +2 both sides. ABDOMEN: Soft. Non-tender. Bowel sounds active. No CVA tenderness. No mass felt. EXTREMITIES: No edema. Full range of motion of all extremities, equal. NEUROLOGIC: No focal deficit. Cranial nerves II through XII are grossly intact. No headache, no double vision or headache. SKIN: Warm and dry. Intact. Turgor-normal. LYMPHATIC: No palpable lymph nodes/no lymphedema. MUSCULOSKELETAL: Normal joints with no swelling. Muscle tone is normal. LAB REVIEW: 03/10/20 05:30 03/10/20 05:30 03/10/20 05:30: PT 20.8 H, INR 2.22 03/10/20 05:30: Sodium 134.1 L, Potassium 4.34, Chloride 96.3 L, Carbon Dioxide 34.0 H, Anion Gap 8.14, BUN 25.8 H, Creatinine 0.67, Estimated GFR (MDRD) 85.00, BUN/Creatinine Ratio 38.50, Glucose 80.6, Calcium 10.00, Total Bilirubin 0.43, AST 31.0, ALT 23.7, Alkaline Phosphatase 188.2 H, Total Protein 6.81, Albumin 3.58, Globulin 3.23, Albumin/Globulin Ratio 1.10 03/10/20 05:30: WBC 14.03 H, RBC 3.72 L, Hgb 10.7 L, Hct 33.8 L, MCV 90.9, MCH 28.8, MCHC 31.7 L, RDW Coeff of Elie 14.6, Plt Count 352, Immature Gran % (Auto) 0.9, Neut % (Auto) 79.4 H, Lymph % (Auto) 11.8, [place] % (Auto) 7.1, Eos % (Auto) 0.7, Baso % (Auto) 0.1, Neut # (Auto) 11.1 H, Lymph # (Auto) 1.7, [place] # (Auto) 1.0, Eos # (Auto) 0.1, Baso # (Auto) 0.0, Immature Gran # (Auto) 0.1 ASSESSMENT: Please see below. 1. COPD with pneumonia pseudomonas, improved after antibiotic treatment with Ertapenem for 10 dyas and Zosyn for 3-4 days. PLAN: 1. The patient will be sent home on tapering dose of steroids. 2. Home oxygen 3. NEBS as before 4. Continue rest of medications. Plan and coordination of the patient's care discussed in the presence of Account Services Analyst and nurse. PROGNOSIS: Guarded. SCRIBED BY: LEE RODRIGUEZ Bread And Pastry Baker scribed while in presence of service performed by Dr. RAISA RASCON on 03/10/20 ([id number])
[2020-03-10] MEDS ORDERED: XANAX PO STA (10:23)
--- NOTE | 2020-03-10 10:30 | DS ---
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 BRENDON GALVEZ GERD OSTEOPENIA DEGENERATIVE DISC DISEASE HISTORY OF TOBACCO USE, STOPPED 10 YRS AGO OSTEOARTHRITIS, RIGHT SHOULDER GOUT COMPRESSION FRACTURE, T9 (STABLE) HYSTERECTOMY APPENDECTOMY LEFT CATARACT EXTRACTION LAST VITALS: Temp Pulse Resp BP Pulse Ox 97.1 F L 77 20 142/72 H 98 03/13/20 05:32 03/13/20 05:32 03/13/20 05:32 03/13/20 05:32 03/13/20 05:32 TAKE THESE MEDICATIONS AT HOME: Acetaminophen (Acetaminophen 325 Mg Tablet) 650 mg PO Q4HR PRN PRN Reason: Fever >101 Albuterol/Ipratropium (Ipratropium/Albuterol Vial.Neb) 3 ml NEB RTTID [facility] Last Admin: 03/13/20 04:25 Dose: 3 ml Documented by: Alprazolam (Alprazolam 0.25 Mg Tablet) 0.25 mg PO QID [facility] Last Admin: 03/13/20 09:17 Dose: 0.25 mg Documented by: Brimonidine Tartrate (Brimonidine Tartrate 0.2% 5 Ml Btl) 1 drop EACHEYE BID [facility] Last Admin: 03/13/20 09:18 Dose: 1 drop Documented by: Budesonide (Budesonide 0.5 Mg/2 Ml Vial.Neb) 0.5 mg [facility] 0600,1999 [facility] Last Admin: 03/13/20 04:25 Dose: 0.5 mg Documented by: Carvedilol (Carvedilol 3.125 Mg Tablet) 3.125 mg PO BIDWM [facility] Last Admin: 03/13/20 09:17 Dose: 3.125 mg Documented by: Furosemide (Furosemide 20 Mg Tablet) 20 mg PO QDAC [facility] Last Admin: 03/13/20 05:55 Dose: 20 mg Documented by: Guaifenesin (Guaifenesin 600 Mg Tablet.Er) 600 mg PO Q12HR [facility] Last Admin: 03/13/20 09:17 Dose: 600 mg Documented by: Loratadine (Loratadine 10 Mg Tablet) 10 mg PO DAILY [facility] Last Admin: 03/13/20 09:17 Dose: 10 mg Documented by: Pantoprazole Sodium (Pantoprazole Sodium 40 Mg Tablet.Dr) 40 mg PO BIDAC [facility] Last Admin: 03/13/20 05:55 Dose: 40 mg Documented by: Potassium Chloride (Potassium Chloride 20 Meq Tab) 20 meq PO DAILYWM [facility] (RX) Last Admin: 03/13/20 09:18 Dose: 20 meq Documented by: Prednisone (Prednisone 20 Mg Tablet) 20 mg PO DAILYWM [facility] ( SEE RX FOR TAPERING DOSE) Last Admin: 03/13/20 09:17 Dose: 20 mg Documented by: Promethazine HCl/Codeine (Promethazine/Codeine Syrup 6.25/10 Mg/5 Ml Disp.Syringe) 10 ml PO Q6H PRN (RX) PRN Reason: Cough Last Admin: 03/12/20 20:57 Dose: 10 ml Documented by: Saccharomyces Boulardii (Saccharomyces Boulardii 250 Mg Capsule) 250 mg PO BID [facility] (RX) Last Admin: 03/13/20 09:17 Dose: 250 mg Documented by: Tramadol HCl (Tramadol Hcl 50 Mg Tablet) 50 mg PO BID [facility] Last Admin: 03/13/20 09:18 Dose: 50 mg Documented by: Warfarin Sodium (Warfarin Sodium 3 Mg Tablet) 3 mg PO QPM [facility] (RX) Last Admin: 03/12/20 17:14 Dose: 3 mg Documented by: ALLERGIES: ciprofloxacin [From Cipro] Adverse Reaction (Intermediate, Verified 02/28/20 20:24) acetylcysteine [From Mucomyst] Adverse Reaction (Verified 02/28/20 20:24) hydrocodone Adverse Reaction (Verified 02/28/20 20:24) Abdominal Pain GI cocktail Adverse Reaction (Uncoded 02/28/20 20:24) mucomyst Adverse Reaction (Uncoded 02/28/20 20:24) Head pressure DISCONTINUED MEDICATIONS: AZITHROMYCIN POTASSIUM 10 MEQ NEW PRESCRIPTIONS: FLORASTOR 250 MG BID PHENERGAN WITH CODEINE 6.25/10 MG/5ML Q 6 HOURS PRN COUGH PREDNISONE 5 MG TABS: TAKE 20 MG DAILY FOR 3 DAYS, THEN 10 MG DAILY FOR 4 DAYS, THEN 5 MG DAILY POTASSIUM CHLORIDE ER 20 MEQ DAILY WARFARIN 3 MG DAILY AT SUPPER SMOKING: NOT APPLICABLE HAS NICORETTE GUM DISEASE SPECIFIC EDUCATION: MEDICATIONS: INCLUDING ORAL STEROIDS AND RISK OF GI IRRITATION, BONE DEMINERALIZATION APPOINTMENTS (OFFICE FOLLOW-UP AND DR. GOLDBERG) NEB TREATMENTS, OXYGEN LAB REVIEW: 03/13/20 04:10 03/13/20 04:10 03/13/20 04:10: Sodium 133.3 L, Potassium 4.41, Chloride 95.6 L, Carbon Dioxide 33.5 H, Anion Gap 8.61, BUN 31.5 H, Creatinine 0.75, Estimated GFR (MDRD) 75.00, BUN/Creatinine Ratio 42.00, Glucose 106.0, Calcium 10.03, Total Bilirubin 0.29, AST 29.4, ALT 21.5, Alkaline Phosphatase 186.4 H D, Total Protein 6.25 L, Albumin 3.14 L, Globulin 3.11, Albumin/Globulin Ratio 1.00 03/13/20 04:10: PT 19.1 H, INR 2.03 03/13/20 04:10: WBC 15.92 H, RBC 3.42 L, Hgb 9.9 L, Hct 30.9 L D, MCV 90.4, MCH 28.9, MCHC 32.0, RDW Coeff of Elie 15.0 H, Plt Count 362, Immature Gran % (Auto) 0.6, Neut % (Auto) 83.6 H, Lymph % (Auto) 9.5 L, [place] % (Auto) 6.0, Eos % (Auto) 0.1, Baso % (Auto) 0.2, Neut # (Auto) 13.3 H, Lymph # (Auto) 1.5, [place] # (Auto) 1.0, Eos # (Auto) 0.0, Baso # (Auto) 0.0, Immature Gran # (Auto) 0.1 DISCHARGE INSTRUCTIONS: DISCHARGE HOME. [facility] TO RESUME: NURSING VISITS (ASSESSMENT, VITAL SIGNS, INCLUDING PULSE OXIMETRY) CHECK PT/INR WEEKLY. CONTINUE OXYGEN AT 3 LITERS PER NASAL CANNULA. CONTINUE DUONEB TID. CONTINUE PULMICORT NEB BID. MAY TAKE 1 EXTRA XANAX DAILY IF NEEDED FOR ANXIETY. AN APPOINTMENT IS SCHEDULED WITH DR. RASCON/JAZZMINE CHEW APRN/JANE LYONS APRN ON MARCH 20 AT 1 PM. AN APPOINTMENT IS SCHEDULED WITH DR. OLIVAS, [facility] (SHIRLEY DUBOIS APRN) ON March AT 9:30. TAKE HOSPITAL CD WITH YOU TO APPOINTMENT (GIVEN TO PATIENT). CODE STATUS: DO NOT RESUSCITATE. DIET: REGULAR TOLERATED ACTIVITY: GRADUALLY RESUME TOLERATED. REST WHEN NEEDED. USE OXYGEN FOR ALL ACTIVITY HOSPITAL COURSE: 79 year old white female hospitalized with pseudomonas pneumonia treated with Zosyn and later Ertapenem. pseudomonas in culture. Continued to improved. Pleuritic pain subsided. Less short of breath. Coughing if much less. Discharged home on tapering dose of steroids; 20mg daily for 5 days and then 10mg daily for 5 days. Explained to the patient is side of effects of steroids like avascular necrosis of femoral head. The patient has steroids dependence for COPD and frequent hospitalizations. Pulmonary rehab was declined. PROGNOSIS: Guarded The patient is a DNR. TIME SPENT: More than 60 minutes. ADDENDUM: The patient was originally set to be discharged two days ago but then she went into panic type that was controlled with angioretic. The status has continued to improve. The patient's pain is from the fact that she won't be able to take care of herself at home but she has a lot of help, two daughters and a who has reassured. She is going to be discharged on antibiotics, steroids and NEBS. HOSPITAL COURSE: (JAZZMINE CHEW, PIGMENT GRINDER) This is a white female with severe COPD. She had recently been hospitalized earlier this month with right basilar pneumonia. She went to the ER a couple of weeks ago, showed bilateral pneumonia, was sent home on Clindamycin. She presented back to the emergency room with shortness of breath. Chest x-ray showed bilateral pneumonia. Sputum culture was positive for Pseudomonas. INR was elevated on admission. She is on Coumadin, long-term for history of DVT and PE. She does have a history of chronic respiratory failure, is both oxygen and steroid dependent. She sees Dr. Olivas. She was admitted, initially placed on IV Zosyn however she had previously been on this in the past, was then switched to Merem. She tolerated this well. She was on antibiotics for a total of 10 days IV. She was also on Azithromycin IV as well. She has a history of chronic anemia, this remains stable. She will be discharged home with Phenergan with Codeine. she is to take 20 mg of Prednisone daily for three days then 10 mg for four days then resume her standard 5 mg daily. INR is therapeutic today at 2.1. She will go home with Coumadin. She had an appointment with Dr. Olivas while she was hospitalized. This is to be rescheduled for April 05 at 9:30. CD of her images was given to the patient. She is to continue her nebulizers at home which she has. She also has had a few panic attacks which worsened her shortness of breath. We did increase her Xanax to 0.25 q.i.d. p.r.n . The patient is not quite ready to understand that she is at end-stage COPD. The likelihood of her pneumonia resolving is very slim. She is not a candidate for any sort of intervention that would require any amount of anesthesia as she could not tolerate it. She will go home with [facility]. Again, she is to followup with Dr. Olivas, will see her in the office next week. She is discharged in stable condition but prognosis is poor. CONDITION: Stable. MTDD
--- NOTE | 2020-03-10 10:31 | PN ---
02/28/2020: Level 5 02/29/2020: Intermediate 03/01/2020: Intermediate 03/02/2020: Intermediate 03/03/2020: Intermediate 03/04/2020: Intermediate 03/05/2020: Intermediate 03/06/2020: Intermediate 03/07/2020: Intermediate 03/08/2020: Intermediate 03/09/2020: Intermediate 03/10/2020: D as in discharge MTDD
[2020-03-10] MEDS: COUMADIN PO SCH (16:25)
[2020-03-10] MEDS: PHENERGAN WITH CODEINE 6.25/10 MG/5 ML PO PRN (21:43)
[2020-03-11] MEDS: PULMICORT 0.5 MG/2 ML NEB SCH ×2 (04:40→22:41)
[2020-03-11] MEDS: DUONEB NEB SCH ×3 (04:40→19:45)
[2020-03-11 05:20] LABS: BASOPHILS % (AUTO) 0.2 % (0.0-3.0); EOSINOPHILS # (AUTO) 0.1 K/ul (0.0-0.7); EOSINOPHILS % (AUTO) 0.4 % (0.0-7.0); HEMATOCRIT 37.1 % (37.0-47.0); HEMOGLOBIN 11.9 g/dl (12.0-16.0); IMMATURE GRANULOCYTE # (AUTO) 0.2 (0.0-1.0); IMMATURE GRANULOCYTE % (AUTO) 0.9 % (0.0-5.0); LYMPHOCYTES # (AUTO) 1.9 K/uL (0.60-3.4); LYMPHOCYTES % (AUTO) 11.5 (10.0-50.0); MEAN CORPUSCULAR HEMOGLOBIN 29.2 pg (27.0-31.0); MEAN CORPUSCULAR HGB CONC 32.1 (31.8-35.4); MEAN CORPUSCULAR VOLUME 91.2 fl (81.0-99.0); MONOCYTES # (AUTO) 1.2 K/uL (0.4-2.0); MONOCYTES % (AUTO) 7.3 (0-10); NEUTROPHILS # (AUTO) 13.4 K/ul (2.0-6.9); NEUTROPHILS % (AUTO) 79.7 % (42.2-75.2); PLATELET COUNT 386 10^3/uL (140-440); RDW COEFFICIENT OF VARIATION 14.7 % (11.6-14.8); RED BLOOD COUNT 4.07 10^6/ul (4.20-5.40); WHITE BLOOD COUNT 16.83 K/ul (4.6-10.2)
[2020-03-11 05:31] LABS: ALANINE AMINOTRANSFERASE 23.7 U/L (0-35); ALBUMIN 3.76 g/dL (3.5-5.0); ALKALINE PHOSPHATASE 196.6 U/L (53-141); ASPARTATE AMINO TRANSFERASE 34.1 U/L (14-36); BILIRUBIN,TOTAL 0.41 mg/dL (0.2-1.3); BLOOD UREA NITROGEN 25.4 mg/dL (7-17); CALCIUM 10.46 mg/dL (8.4-10.2); CREATININE 0.66 mg/dL (0.60-1.30); GLUCOSE 94.5 mg/dL (74-106); POTASSIUM 4.06 mmol/L (3.5-5.1); PROTHROMBIN TIME 21.9 SEC (9.3-11.0); SODIUM 135.4 mmol/L (134.5-145); TOTAL PROTEIN 7.36 g/dL (6.3-8.2)
[2020-03-11] MEDS: PROTONIX PO SCH ×2 (06:03→16:49)
[2020-03-11] MEDS: LASIX TAB PO SCH (06:03)
[2020-03-11] MEDS: CLARITIN PO SCH (08:03)
[2020-03-11] MEDS: FLORASTOR PO SCH ×2 (08:04→20:23)
[2020-03-11] MEDS: MUCINEX PO SCH ×2 (08:04→20:23)
[2020-03-11] MEDS: XANAX PO SCH ×3 (08:04→20:23)
[2020-03-11] MEDS: K-DUR PO SCH (08:04)
[2020-03-11] MEDS: PREDNISONE PO SCH (08:04)
[2020-03-11] MEDS: BRIMONIDINE TARTRATE 0.2% OPTH SOL EACHEYE SCH ×2 (08:05→20:24)
[2020-03-11] MEDS: COREG PO SCH ×2 (08:05→16:50)
[2020-03-11] MEDS: ULTRAM PO SCH ×2 (08:05→20:23)
[2020-03-11] MEDS: COUMADIN PO SCH (16:58)
[2020-03-11] MEDS: PHENERGAN WITH CODEINE 6.25/10 MG/5 ML PO PRN (21:41)
[2020-03-12] MEDS: PULMICORT 0.5 MG/2 ML NEB SCH ×2 (05:10→19:40)
[2020-03-12] MEDS: DUONEB NEB SCH ×3 (05:10→19:40)
[2020-03-12 05:21] LABS: BASOPHILS % (AUTO) 0.2 % (0.0-3.0); EOSINOPHILS # (AUTO) 0.1 K/ul (0.0-0.7); EOSINOPHILS % (AUTO) 0.8 % (0.0-7.0); HEMATOCRIT 37.5 % (37.0-47.0); HEMOGLOBIN 11.7 g/dl (12.0-16.0); IMMATURE GRANULOCYTE # (AUTO) 0.1 (0.0-1.0); IMMATURE GRANULOCYTE % (AUTO) 0.8 % (0.0-5.0); LYMPHOCYTES # (AUTO) 2.1 K/uL (0.60-3.4); LYMPHOCYTES % (AUTO) 13.2 (10.0-50.0); MEAN CORPUSCULAR HEMOGLOBIN 28.7 pg (27.0-31.0); MEAN CORPUSCULAR HGB CONC 31.2 (31.8-35.4); MEAN CORPUSCULAR VOLUME 92.1 fl (81.0-99.0); MONOCYTES # (AUTO) 1.2 K/uL (0.4-2.0); MONOCYTES % (AUTO) 7.4 (0-10); NEUTROPHILS # (AUTO) 12.3 K/ul (2.0-6.9); NEUTROPHILS % (AUTO) 77.6 % (42.2-75.2); PLATELET COUNT 403 10^3/uL (140-440); RDW COEFFICIENT OF VARIATION 14.8 % (11.6-14.8); RED BLOOD COUNT 4.07 10^6/ul (4.20-5.40); WHITE BLOOD COUNT 15.88 K/ul (4.6-10.2)
[2020-03-12 05:37] LABS: ALBUMIN 3.74 g/dL (3.5-5.0); ALKALINE PHOSPHATASE 231.1 U/L (53-141); ASPARTATE AMINO TRANSFERASE 32.6 U/L (14-36); BILIRUBIN,TOTAL 0.33 mg/dL (0.2-1.3); BLOOD UREA NITROGEN 27.3 mg/dL (7-17); CALCIUM 10.66 mg/dL (8.4-10.2); CARBON DIOXIDE 35.8 mmol/L (22-30.0); CREATININE 0.76 mg/dL (0.60-1.30); PROTHROMBIN TIME 21.7 SEC (9.3-11.0); SODIUM 135.3 mmol/L (134.5-145); TOTAL PROTEIN 7.26 g/dL (6.3-8.2)
[2020-03-12] MEDS: LASIX TAB PO SCH (06:20)
[2020-03-12] MEDS: PROTONIX PO SCH ×2 (06:21→17:14)
[2020-03-12] MEDS: PREDNISONE PO SCH (08:45)
[2020-03-12] MEDS: XANAX PO SCH ×3 (08:45→20:47)
[2020-03-12] MEDS: ULTRAM PO SCH ×2 (08:45→20:47)
[2020-03-12] MEDS: K-DUR PO SCH (08:45)
[2020-03-12] MEDS: MUCINEX PO SCH ×2 (08:45→20:47)
[2020-03-12] MEDS: FLORASTOR PO SCH ×2 (08:45→20:47)
[2020-03-12] MEDS: COREG PO SCH ×2 (08:45→17:14)
[2020-03-12] MEDS: BRIMONIDINE TARTRATE 0.2% OPTH SOL EACHEYE SCH ×2 (08:46→20:48)
[2020-03-12] MEDS: CLARITIN PO SCH (08:46)
[2020-03-12] MEDS ORDERED: TORADOL IVP STA (12:50)
[2020-03-12] MEDS ORDERED: DECADRON IM SCH (13:29)
[2020-03-12] MEDS: COUMADIN PO SCH (17:14)
[2020-03-12] MEDS: PHENERGAN WITH CODEINE 6.25/10 MG/5 ML PO PRN (20:57)
[2020-03-13 04:24] LABS: BASOPHILS % (AUTO) 0.2 % (0.0-3.0); EOSINOPHILS % (AUTO) 0.1 % (0.0-7.0); HEMATOCRIT 30.9 % (37.0-47.0); HEMOGLOBIN 9.9 g/dl (12.0-16.0); IMMATURE GRANULOCYTE # (AUTO) 0.1 (0.0-1.0); IMMATURE GRANULOCYTE % (AUTO) 0.6 % (0.0-5.0); LYMPHOCYTES # (AUTO) 1.5 K/uL (0.60-3.4); LYMPHOCYTES % (AUTO) 9.5 (10.0-50.0); MEAN CORPUSCULAR HEMOGLOBIN 28.9 pg (27.0-31.0); MEAN CORPUSCULAR VOLUME 90.4 fl (81.0-99.0); NEUTROPHILS # (AUTO) 13.3 K/ul (2.0-6.9); NEUTROPHILS % (AUTO) 83.6 % (42.2-75.2); PLATELET COUNT 362 10^3/uL (140-440); RED BLOOD COUNT 3.42 10^6/ul (4.20-5.40); WHITE BLOOD COUNT 15.92 K/ul (4.6-10.2)
[2020-03-13] MEDS: PULMICORT 0.5 MG/2 ML NEB SCH (04:25)
[2020-03-13] MEDS: DUONEB NEB SCH (04:25)
[2020-03-13 04:34] LABS: PROTHROMBIN TIME 19.1 SEC (9.3-11.0)
[2020-03-13 04:40] LABS: ALANINE AMINOTRANSFERASE 21.5 U/L (0-35); ALBUMIN 3.14 g/dL (3.5-5.0); ALKALINE PHOSPHATASE 186.4 U/L (53-141); ASPARTATE AMINO TRANSFERASE 29.4 U/L (14-36); BILIRUBIN,TOTAL 0.29 mg/dL (0.2-1.3); BLOOD UREA NITROGEN 31.5 mg/dL (7-17); CALCIUM 10.03 mg/dL (8.4-10.2); CARBON DIOXIDE 33.5 mmol/L (22-30.0); CHLORIDE 95.6 mmol/L (98-107); CREATININE 0.75 mg/dL (0.60-1.30); POTASSIUM 4.41 mmol/L (3.5-5.1); SODIUM 133.3 mmol/L (134.5-145); TOTAL PROTEIN 6.25 g/dL (6.3-8.2)
[2020-03-13 05:35] VITALS: BP 142/72; TEMP 97.1
[2020-03-13] MEDS: LASIX TAB PO SCH (05:55)
[2020-03-13] MEDS: PROTONIX PO SCH (05:55)
[2020-03-13] MEDS ORDERED: DECADRON IM SCH (09:00)
[2020-03-13] MEDS ORDERED: XANAX PO SCH (09:00)
[2020-03-13] MEDS: COREG PO SCH (09:17)
[2020-03-13] MEDS: MUCINEX PO SCH (09:17)
[2020-03-13] MEDS: CLARITIN PO SCH (09:17)
[2020-03-13] MEDS: PREDNISONE PO SCH (09:17)
[2020-03-13] MEDS: FLORASTOR PO SCH (09:17)
[2020-03-13] MEDS: BRIMONIDINE TARTRATE 0.2% OPTH SOL EACHEYE SCH (09:18)
[2020-03-13] MEDS: K-DUR PO SCH (09:18)
[2020-03-13] MEDS: ULTRAM PO SCH (09:18)
--- NOTE | 2020-03-13 09:43 | PCM.PROG ---
Attending Provider: ATTENDING PROVIDER: Dr. RAISA RASCON This patient is seen with Zuly Henry, Nurse Practitioner. DATE OF SERVICE: 03/13/20 SUBJECTIVE: This 79 year old /WHITE F was hospitalized 02/28/20. The patient is resting comfortably. Ready to be discharged. She did have panic attack y ester. REVIEW OF SYSTEMS: CONSTITUTIONAL: No night sweats. No fatigue, malaise, lethargy. No fever or chills. HEENT: Eyes: No visual changes. No eye pain. No eye discharge. ENT: No runny nose. No epistaxis. No sinus pain. No odynophagia. No congestion. RESPIRATORY: Cough, no congestion. No hemoptysis. Shortness of breath. CARDIOVASCULAR: No angina symptoms. No CHF symptoms. No atypical chest pain for CAD. No palpitations. No orthopnea.. GASTROINTESTINAL: No abdominal pain. No nausea or vomiting. No diarrhea or constipation. No hematemesis. No hematochezia. GENITOURINARY: No urgency. No frequency. No dysuria. No hematuria. No obstructive symptoms. No discharge. No pain. No significant abnormal bleeding. MUSCULOSKELETAL: No musculoskeletal pain; no joint swelling. NEUROLOGICAL: Awake, alert, oriented to time, place and person. No headache. No neck pain. No syncope. No seizures. No dizziness. PSYCHIATRIC: Not anxious. No depression. No suicidal thoughts. No homicidal thoughts. SKIN: No rash. No lesions. No wounds. ENDOCRINE: No unexplained weight loss. No weight gain. HEMATOLOGIC/LYMPHATIC: No anemia. No purpura. No petechiae. No prolonged or excessive bleeding. No palpable lymph nodes. PHYSICAL EXAMINATION: GENERAL: The patient is awake, alert and oriented, sitting in bed in no distress. VITAL SIGNS: Temperature 97.1 F, Pulse 77, Respiratory Rate 20, BP 142/72, Pulse Ox 98% HEENT: Head normocephalic, atraumatic. Eyes: Extraocular muscles are intact. Pupils are equal, round and reactive to light and accommodation. Ears: No lesions. Nose appeared normal. Throat: No exudate or erythema. NECK: Supple. No JVD, no carotid bruit. No lymphadenopathy or thyromegaly. LUNGS: Diminished breath sounds, improving. Clear to auscultation. Percussion note normal. Chest symmetrical. HEART: S1, S2, no S3. No murmurs. No cyanosis or clubbing. No ascites. Pulses: Dorsalis pedis and posterior tibial pulses +1 to +2 both sides. ABDOMEN: Soft. Non-tender. Bowel sounds active. No CVA tenderness. No mass felt. EXTREMITIES: No edema. Full range of motion of all extremities, equal. NEUROLOGIC: No focal deficit. Cranial nerves II through XII are grossly intact. No headache, no double vision or headache. SKIN: Not dry. Intact. Turgor-normal. LYMPHATIC: No palpable lymph nodes/no lymphedema. MUSCULOSKELETAL: Normal joints with no swelling. Muscle tone is normal. LAB REVIEW: 03/13/20 04:10 03/13/20 04:10 03/13/20 04:10: Sodium 133.3 L, Potassium 4.41, Chloride 95.6 L, Carbon Dioxide 33.5 H, Anion Gap 8.61, BUN 31.5 H, Creatinine 0.75, Estimated GFR (MDRD) 75.00, BUN/Creatinine Ratio 42.00, Glucose 106.0, Calcium 10.03, Total Bilirubin 0.29, AST 29.4, ALT 21.5, Alkaline Phosphatase 186.4 H D, Total Protein 6.25 L, Albumin 3.14 L, Globulin 3.11, Albumin/Globulin Ratio 1.00 03/13/20 04:10: PT 19.1 H, INR 2.03 03/13/20 04:10: WBC 15.92 H, RBC 3.42 L, Hgb 9.9 L, Hct 30.9 L D, MCV 90.4, MCH 28.9, MCHC 32.0, RDW Coeff of Elie 15.0 H, Plt Count 362, Immature Gran % (Auto) 0.6, Neut % (Auto) 83.6 H, Lymph % (Auto) 9.5 L, [place] % (Auto) 6.0, Eos % (Auto) 0.1, Baso % (Auto) 0.2, Neut # (Auto) 13.3 H, Lymph # (Auto) 1.5, [place] # (Auto) 1.0, Eos # (Auto) 0.0, Baso # (Auto) 0.0, Immature Gran # (Auto) 0.1 ASSESSMENT: Please see below. 1. Bilateral pneumonia 2. Severe COPD 3. Anxiety PLAN: 1. Increase Xanax 0.25mg QID PRN 2. Prednisone 20mg daily for three days then 10mg daily for 4 days 3. Followup in the office next week. Plan and coordination of the patient's care discussed in the presence of Cell Repairer and nurse. SCRIBED BY: Zachariah REDDist scribed while in presence of service performed by Dr. Rascon/Zuly Henry APRN on 03/13/20 ([id number])
--- NOTE | 2020-03-13 10:07 | CM.DICTOOL ---
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 BRENDON GALVEZ GERD OSTEOPENIA DEGENERATIVE DISC DISEASE HISTORY OF TOBACCO USE, STOPPED 10 YRS AGO OSTEOARTHRITIS, RIGHT SHOULDER GOUT COMPRESSION FRACTURE, T9 (STABLE) HYSTERECTOMY APPENDECTOMY LEFT CATARACT EXTRACTION LAST VITALS Temp Pulse Resp BP Pulse Ox 97.1 F L 77 20 142/72 H 98 03/13/20 05:32 03/13/20 05:32 03/13/20 05:32 03/13/20 05:32 03/13/20 05:32 TAKE THESE MEDICATIONS AT HOME Acetaminophen (Acetaminophen 325 Mg Tablet) 650 mg PO Q4HR PRN PRN Reason: Fever >101 Albuterol/Ipratropium (Ipratropium/Albuterol Vial.Neb) 3 ml NEB RTTID [facility] Last Admin: 03/13/20 04:25 Dose: 3 ml Documented by: Alprazolam (Alprazolam 0.25 Mg Tablet) 0.25 mg PO QID [facility] Last Admin: 03/13/20 09:17 Dose: 0.25 mg Documented by: Brimonidine Tartrate (Brimonidine Tartrate 0.2% 5 Ml Btl) 1 drop EACHEYE BID [facility] Last Admin: 03/13/20 09:18 Dose: 1 drop Documented by: Budesonide (Budesonide 0.5 Mg/2 Ml Vial.[facility]) 0.5 mg [facility] 06,1999 [facility] Last Admin: 03/13/20 04:25 Dose: 0.5 mg Documented by: Carvedilol (Carvedilol 3.125 Mg Tablet) 3.125 mg PO BIDWM [facility] Last Admin: 03/13/20 09:17 Dose: 3.125 mg Documented by: Furosemide (Furosemide 20 Mg Tablet) 20 mg PO QDAC [facility] Last Admin: 03/13/20 05:55 Dose: 20 mg Documented by: Guaifenesin (Guaifenesin 600 Mg Tablet.Er) 600 mg PO Q12HR [facility] Last Admin: 03/13/20 09:17 Dose: 600 mg Documented by: Loratadine (Loratadine 10 Mg Tablet) 10 mg PO DAILY [facility] Last Admin: 03/13/20 09:17 Dose: 10 mg Documented by: Pantoprazole Sodium (Pantoprazole Sodium 40 Mg Tablet.) 40 mg PO BIDAC [facility] Last Admin: 03/13/20 05:55 Dose: 40 mg Documented by: Potassium Chloride (Potassium Chloride 20 Meq Tab) 20 meq PO DAILYWM OLVIN (RX) Last Admin: 03/13/20 09:18 Dose: 20 meq Documented by: Prednisone (Prednisone 20 Mg Tablet) 20 mg PO DAILYWM [facility] ( SEE RX FOR TAPERING DOSE) Last Admin: 03/13/20 09:17 Dose: 20 mg Documented by: Promethazine HCl/Codeine (Promethazine/Codeine Syrup 6.25/10 Mg/5 Ml Disp.Syringe) 10 ml PO Q6H PRN (RX) PRN Reason: Cough Last Admin: 03/12/20 20:57 Dose: 10 ml Documented by: Saccharomyces Boulardii (Saccharomyces Boulardii 250 Mg Capsule) 250 mg PO BID [facility] (RX) Last Admin: 03/13/20 09:17 Dose: 250 mg Documented by: Tramadol HCl (Tramadol Hcl 50 Mg Tablet) 50 mg PO BID [facility] Last Admin: 03/13/20 09:18 Dose: 50 mg Documented by: Warfarin Sodium (Warfarin Sodium 3 Mg Tablet) 3 mg PO QPM [facility] (RX) Last Admin: 03/12/20 17:14 Dose: 3 mg Documented by: ALLERGIES ciprofloxacin [From Cipro] Adverse Reaction (Intermediate, Verified 02/28/20 20:24) acetylcysteine [From Mucomyst] Adverse Reaction (Verified 02/28/20 20:24) hydrocodone Adverse Reaction (Verified 02/28/20 20:24) Abdominal Pain gi cocktail Adverse Reaction (Uncoded 02/28/20 20:24) mucomyst Adverse Reaction (Uncoded 02/28/20 20:24) Head pressure DISCONTINUED MEDICATIONS AZITHROMYCIN POTASSIUM 10 MEQ NEW PRESCRIPTIONS: FLORASTOR 250 MG BID PHENERGAN WITH CODEINE 6.25/10 MG/5ML Q 6 HOURS PRN COUGH PREDNISONE 5 MG TABS: TAKE 20 MG DAILY FOR 3 DAYS, THEN 10 MG DAILY FOR 4 DAYS, THEN 5 MG DAILY POTASSIUM CHLORIDE ER 20 MEQ DAILY WARFARIN 3 MG DAILY AT SUPPER SMOKING: NOT APPLICABLE HAS NICORETTE GUM DISEASE SPECIFIC EDUCATION: MEDICATIONS: INCLUDING ORAL STEROIDS AND RISK OF GI IRRITATION, BONE DEMINERALIZATION APPOINTMENTS (OFFICE FOLLOW-UP AND DR. GOLDBERG) NEB TREATMENTS, OXYGEN LAB REVIEW: 03/13/20 04:10 03/13/20 04:10 03/13/20 04:10: Sodium 133.3 L, Potassium 4.41, Chloride 95.6 L, Carbon Dioxide 33.5 H, Anion Gap 8.61, BUN 31.5 H, Creatinine 0.75, Estimated GFR (MDRD) 75.00, BUN/Creatinine Ratio 42.00, Glucose 106.0, Calcium 10.03, Total Bilirubin 0.29, AST 29.4, ALT 21.5, Alkaline Phosphatase 186.4 H D, Total Protein 6.25 L, Albumin 3.14 L, Globulin 3.11, Albumin/Globulin Ratio 1.00 03/13/20 04:10: PT 19.1 H, INR 2.03 03/13/20 04:10: WBC 15.92 H, RBC 3.42 L, Hgb 9.9 L, Hct 30.9 L D, MCV 90.4, MCH 28.9, MCHC 32.0, RDW Coeff of Elie 15.0 H, Plt Count 362, Immature Gran % (Auto) 0.6, Neut % (Auto) 83.6 H, Lymph % (Auto) 9.5 L, [place] % (Auto) 6.0, Eos % (Auto) 0.1, Baso % (Auto) 0.2, Neut # (Auto) 13.3 H, Lymph # (Auto) 1.5, [place] # (Auto) 1.0, Eos # (Auto) 0.0, Baso # (Auto) 0.0, Immature Gran # (Auto) 0.1 PLAN: DISCHARGE HOME DIET: REGULAR TOLERATED ACTIVITY: GRADUALLY RESUME TOLERATED. REST WHEN NEEDED. USE OXYGEN FOR ALL ACTIVITY [facility] TO RESUME: NURSING VISITS (ASSESSMENT, VITAL SIGNS, INCLUDING PULSE OXIMETRY) CHECK PT/INR WEEKLY CONTINUE OXYGEN AT 3 LITERS PER NASAL CANNULA CONTINUE DUONEB TID CONTINUE PULMICORT NEB BID MAY TAKE 1 EXTRA XANAX DAILY IF NEEDED FOR ANXIETY AN APPOINTMENT IS SCHEDULED WITH DR. RASCON/JAZZMINE CHEW APRN/JANE LYONS APRN ON MARCH 20 AT 1 PM AN APPOINTMENT IS SCHEDULED WITH DR. OLIVAS, [facility] (SHIRLEY DUBOIS, TOMER) ON March AT 9:30. TAKE HOSPITAL CD WITH YOU TO APPOINTMENT (GIVEN TO PATIENT) CODE STATUS: DO NOT RESUSCITATE 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 SHE IS INDEPENDENT WITH ADL'S, BUT AT TIMES WILL NEED ASSISTANCE WITH PERSONAL CARE. SHE IS INDEPENDENT WITH BED MOBILITY AND IS ABLE TO TRANSFER FROM THE BED TO THE CHAIR. SHE IS AMBULATORY IN THE ROOM WITH USE OF ROLLING WALKER OR SBA OF NURSING. MRS. STEINBERG IS CONTINENT OF BOWEL AND BLADDER. SHE FEEDS HERSELF AND HAS A GOOD APPETITE OF 50-100%. MRS. STEINBERG HAS OXYGEN AND NEBULIZER AT HOME AND IS KNOWLEDGEABLE REGARDING THE USE OF THE EQUIPMENT. MRS. STEINBERG ALSO HAS A ROLLATOR AND SHOWER CHAIR AT HOME. MRS. STEINBERG HAD [facility] UP UNTIL THE TIME OF HER HOSPITAL ADMISSION. WE WILL CONTACT [facility] TO RESUME CARE OF THE PATIENT. MRS. STEINBERG IS AGREEABLE. HYDRATION STATUS IS GOOD. SKIN IS INTACT AND FREE OF OPEN WOUNDS OR DECUBITUS ULCERS. MD JAZZMINE SMILEY, TOMER
--- NOTE | 2020-03-13 12:58 | PN ---
02/28/2020: Level 5 02/29/2020: Intermediate 03/01/2020: Intermediate 03/02/2020: Intermediate 03/03/2020: Intermediate 03/04/2020: Intermediate 03/05/2020: Intermediate 03/06/2020: Intermediate 03/07/2020: Intermediate 03/08/2020: Intermediate 03/09/2020: Intermediate 03/10/2020: Intermediate 03/11/2020: Intermediate 03/12/2020: Intermediate 03/13/2020: Intermediate MTDD
--- NOTE | 2020-03-13 13:00 | PN ---
DATE OF SERVICE: 03/13/2020 SUBJECTIVE: The patient was seen and examined today with the Nurse Practitioner. The patient is up and about doing well. Her vitals are stable. The patient is going to be discharged home. TIME SPENT: More than 30 minutes. Plan and coordination of the patient's care discussed in the presence of nurse. ANETA
--- NOTE | 2020-03-13 13:38 | PN ---
DATE OF SERVICE: 03/12/2020 SUBJECTIVE: The patient was seen and examined this morning. The patient's condition has improved and she is feeling better. She has today pleuritic type of pain and we will give Toradol 50mg IV with a cc of Decadron. REVIEW OF SYSTEMS: CONSTITUTIONAL: No night sweats. No fatigue, malaise, lethargy. No fever or chills. HEENT: Eyes: No visual changes. No eye pain. No eye discharge. ENT: No runny nose. No epistaxis. No sinus pain. No sore throat. No odynophagia. No congestion. RESPIRATORY: Mild cough, no congestion. No hemoptysis. No shortness of breath. CARDIOVASCULAR: No angina symptoms. No CHF symptoms. Pleuritic type of pain. No palpitations. No PND. No orthopnea. GASTROINTESTINAL: No abdominal pain. No nausea or vomiting. No diarrhea or constipation. No hematemesis. No hematochezia. GENITOURINARY: No urgency. No frequency. No dysuria. No hematuria. No obstructive symptoms. No discharge. No pain. No significant abnormal bleeding. MUSCULOSKELETAL: No musculoskeletal pain; no joint swelling. NEUROLOGICAL: No headache. No neck pain. No syncope. No seizures. No dizziness. PSYCHIATRIC: Not anxious. No depression. No suicidal thoughts. No homicidal thoughts. SKIN: No rash. No lesions. No wounds. ENDOCRINE: No unexplained weight loss. No weight gain. HEMATOLOGIC/LYMPHATIC: No anemia. No purpura. No petechiae. No prolonged or excessive bleeding. No palpable lymph nodes. PHYSICAL EXAMINATION: GENERAL: The patient is oriented to time, place and person. HEENT: Head normocephalic, atraumatic. Eyes: Extraocular muscles are intact. Pupils are equal, round and reactive to light and accommodation. Ears: No lesions. Nose appeared normal. Throat: No exudate or erythema. NECK: Supple. No JVD, no carotid bruit. No lymphadenopathy or thyromegaly. LUNGS: Decreased breath sounds but clear to auscultation. Percussion note normal. Chest symmetrical. HEART: S1, S2, no S3. No murmurs. No cyanosis or clubbing. No ascites. Pulses: Dorsalis pedis and posterior tibial pulses +1 to +2 bilaterally. ABDOMEN: Soft. Nontender. Bowel sounds active. No CVA tenderness. No mass felt. EXTREMITIES: No edema. Full range of motion of all extremities, equal. NEUROLOGIC: No focal deficit. Cranial nerves II through XII are grossly intact. No headache, no double vision or headache. SKIN: Not dry. Intact. Turgor - normal. LYMPHATIC: No palpable lymph nodes/no lymphedema. MUSCULOSKELETAL: Normal joints with no swelling. Muscle tone is normal. ASSESSMENT: 1. Pseudomonas pneumonia seems to be improving with Ertapenem. PLAN: 1. Give Toradol 50mg IV and 1cc Decadron for pleuritic pain. 2. Will encourage the patient to walk 3. Encourage the patient to eat 3-4 meals a day, small meals. PROGNOSIS: Guarded TIME SPENT: More than 30 minutes. Plan and coordination of the patient's care discussed in the presence of nurse. ANETA
--- NOTE | 2020-03-14 13:33 | PN ---
DATE OF SERVICE: 03/09/20 SUBJECTIVE: The patient was seen and examined with the nurse practitioner. The patient's condition is slowly improving. She is up and about, feeling better, gaining strength. The patient has Pseudomonas pneumonia on Ertapenem. TIME SPENT: More than 30 minutes. Plan and coordination of the patient's care discussed in the presence of nurse. ANETA
--- NOTE | 2020-03-14 13:46 | PN ---
DATE OF SERVICE: 03/11/20 SUBJECTIVE: The patient was seen and examined today. The patient's condition seems to have improved yesterday. She was about to be discharged and got into a panic, went in to respiratory distress with hypoxemia. She settled down after she was given anxiolytic. In any case, the patient's condition is stable. I explained to her to walk around and also eat 3 to 4 meals. Her daughter Viola is here and she agreed with me that panic yesterday and is willing to go home now Friday. Continue Ertapenem. In any case, I think she needs more Ertapenem as many days as she could get with Pseudomonas. PHYSICAL EXAMINATION: VITAL SIGNS: Temperature 98, pulse 80, respiratory rate 16, blood pressure 130/62, pulse ox 99% on 2L. HEENT: Head normocephalic, atraumatic. Eyes: Extraocular muscles are intact. Pupils are equal, round and reactive to light and accommodation. Ears: No lesions. Nose appeared normal. Throat: No exudate or erythema. NECK: Supple. No JVD, no carotid bruit. No lymphadenopathy or thyromegaly. LUNGS: Clear to auscultation. Percussion note normal. Chest symmetrical. HEART: S1, S2, no S3. No murmurs. No cyanosis or clubbing. No ascites. Pulses: Dorsalis pedis and posterior tibial pulses +1 to +2 bilaterally. ABDOMEN: Soft. Nontender. Bowel sounds active. No CVA tenderness. No mass felt. EXTREMITIES: No edema. Full range of motion of all extremities, equal. NEUROLOGIC: No focal deficit. Cranial nerves II through XII are grossly intact. No headache, no double vision or headache. SKIN: Not dry. Intact. Turgor - normal. LYMPHATIC: No palpable lymph nodes/no lymphedema. MUSCULOSKELETAL: Normal joints with no swelling. Muscle tone is normal. ASSESSMENT: 1. PNEUMONITIS, PSEUDOMONAS SEEMS TO BE IMPROVING CLINICALLY. PLAN: 1. Nebs. 2. Steroids. 3. Antibiotics. 4. Respiratory status is stable. PROGNOSIS: Guarded. TIME SPENT: More than 30 minutes. Plan and coordination of the patient's care discussed in the presence of nurse. ANETA
== END 2020-03-13 11:15 | disposition home or self-care (01) | DRG 189 ==
LOC: ED 15:44 → MEDSURG B 23:42 → MEDSURG A 03-02 15:42
PROVIDERS: ADMIT Internal Medicine; ATTEND Internal Medicine
DX: Z79.01 Long term (current) use of anticoagulants; B96.5 Pseudomonas (aeruginosa) (mallei) (pseudomallei) as the cause of diseases classified elsewhere; D64.9 Anemia, unspecified; D68.59 Other primary thrombophilia; J84.10 Pulmonary fibrosis, unspecified; Z86.718 Personal history of other venous thrombosis and embolism; K21.9 Gastro-esophageal reflux disease without esophagitis; J96.10 Chronic respiratory failure, unspecified whether with hypoxia or hypercapnia; I10 Essential (primary) hypertension; M13.0 Polyarthritis, unspecified; R07.9 Chest pain, unspecified; Z99.81 Dependence on supplemental oxygen; F41.9 Anxiety disorder, unspecified; J44.1 Chronic obstructive pulmonary disease with (acute) exacerbation

== ENCOUNTER 2020-03-25 13:27 | Inpatient (IN) ==
[2020-03-25] MEDS ORDERED: VENTOLIN HFA (PER PUFF-WITH SPACER) IH STA (14:10)
--- NOTE | 2020-03-25 14:10 | ED.PDOC ---
General ED Provider: Dr. SERINA FLORES Chief Complaint: Shortness of Air Stated Complaint: Increasing shortness of breath today, cough and congestion Has recently finished treatment for Pneumonia and finishes her therapy but has experienced recurrent and worsening symptoms.NO hx of known COVID exposure and last test was negative. Time Seen by Physician: 13:50 Mode of Arrival: Ambulance Information Source: Patient Exam Limitations: Clinical condition Primary Care Provider: RAISA YO Nursing and Triage Documentation Reviewed and Agree: Yes Does patient meet sepsis criteria?: No If yes, has appropriate treatment been initiated?: No System Inflammatory Response Syndrome: Not Applicable Sepsis Protocol: For patient's 13 years and over: Temp is 96.8 and below OR 101 and greater Pulse >90 BPM Resp >20/minute Acutely Altered Mental Status Are patient's symptoms suggestive of a new infection, such as: -Pneumonia -Skin, Soft Tissue -Endocarditis -UTI -Bone, Joint Infection -Implantable Device -Acute Abdominal Infection -Wound Infection -Meningitis -Blood Stream Catheter Infection -Unknown Respiratory Complaint Exam Shortness of Air Complaint/Exam Onset/Duration: last eveining Symptoms Are: Still present Timing: Constant Initial Severity: Mild Current Severity: Moderate Character: Reports Dyspnea at rest and Dyspnea on exertion Aggravating: Reports Movement and Deep breaths Alleviating: Reports Bronchodilators, Oxygen, Upright position and Spontaneous resolution Associated Signs and Symptoms: Reports Cough, Wheezing and Chest pain with cough Related History: Reports Similar episode History of Healthcare-Acquired Pneumonia: Admit w/in last 30 days Pseudomonas Risk Factors: Reports None Tuberculosis Risk Factors: Reports None Home Oxygen Use: Yes Recent Stress Test: No Recent Echo/LV Function: No Respiratory Distress: Mild Stridor Present: No Subcutaneous Emphysema: No Accessory Muscle Use: No Retractions: Not Present Diminished Breath Sounds: Yes Prolonged Expiratory Phase: No Unable to Speak Full Sentences: No Fatigue: Yes Leg Swelling: Yes Elizabeth's Sign Present: No Grunting Respirations: No Kussmaul Respirations: No Differential Diagnoses: Chest Wall Pain and COPD Exacerbation Review of Systems Review Of Systems Constitutional: Reports Loss of appetite Eyes: Reports No symptoms Ears, Nose, Mouth, Throat: Reports No symptoms Respiratory: Reports Cough, Orthopnea, Short of air, Wheezing and Other (productive cough ) Cardiac: Reports No symptoms GI: Reports Poor appetite : Reports No symptoms Musculoskeletal: Reports No symptoms Skin: Reports No symptoms Neurological: Reports No symptoms Endocrine: Reports No symptoms Hematologic/Lymphatic: Reports No symptoms All Other Systems: Reviewed and Negative [facility] Medical History (Updated 03/25/20 @ 14:48 by SERINA FLORES DO) Arrhythmia Asthma Bronchitis COPD (chronic obstructive pulmonary disease) Hypertension Pneumonia Pulmonary emboli Family History BROTHER No problems noted. Mother COPD (chronic obstructive pulmonary disease) Other Cancer Social History Smoking and tobacco status: Former smoker Substance use type: does not use History of recent travel: No Surgical History History of hysterectomy Female Reproductive History Menstrual Hx Hysterectomy: Yes Hx Tubal Ligation: No Physical Exam Physical Exam Appearance: Reports Ill-appearing and Thin Ill-appearing: Mild Pain Distress: Mild Eyes: Reports BETH, EOMI and Conjunctiva clear ENT: Reports Ears normal, Nose normal and Oropharynx normal Neck: Supple Respiratory: Reports Airway patent, Breath sounds diminished, Respirations nonlabored and Wheezes Cardiovascular: Reports RRR, Pulses normal, No rub and No murmur GI/: Reports Soft, Nontender, No masses and Bowel sounds normal Musculoskeletal: Reports Normal strength, ROM intact, No edema and No calf tenderness Skin: Reports Warm, Dry, Normal color and Pale Neurological: Reports Sensation intact, Motor intact, Reflexes intact, Cranial nerves intact, Alert and Oriented Psychiatric: Reports Affect appropriate, Mood appropriate and Anxious Interpretation Radiology Interpretation Exam Interpreted: Portable CXR (Opacities at the lung bases could represent atelectasis or pneumonia. Chronic hyperinflation compatible with emphysema.) Critical Care Note Critical Care Note Total Critical Care Time (mins): 60 Course Course Hematology/Chemistry: 03/25/20 14:39 03/25/20 14:39 Orders, Labs, Meds: Lab Review 03/25/20 03/25/20 03/25/20 14:10 14:39 14:39 WBC 18.99 H RBC 3.87 L Hgb 11.1 L Hct 34.5 L MCV 89.1 MCH 28.7 MCHC 32.2 RDW Coeff of Elie 14.7 Plt Count 299 Immature Gran % (Auto) 0.5 Neut % (Auto) 83.8 H Lymph % (Auto) 7.0 L [place] % (Auto) 7.1 Eos % (Auto) 1.3 Baso % (Auto) 0.3 Neut # (Auto) 15.9 H Lymph # (Auto) 1.3 [place] # (Auto) 1.3 Eos # (Auto) 0.3 Baso # (Auto) 0.1 Immature Gran # (Auto) 0.1 PT 28.5 H INR 3.10 Puncture Site Rbrach O2 Saturation 96.4 ABG pH 7.5 H ABG pCO2 48.0 H ABG pO2 77.0 L ABG HCO3 37.4 H ABG Total CO2 38.9 H ABG Base Excess 14.2 H O2 Delivery Device Nc Oxygen Liter Flow 3.50 Sodium Potassium Chloride Carbon Dioxide Anion Gap BUN Creatinine Estimated GFR (MDRD) BUN/Creatinine Ratio Glucose Lactic Acid Calcium Magnesium Total Bilirubin AST ALT Alkaline Phosphatase Total Protein Albumin Globulin Albumin/Globulin Ratio Procalcitonin Adenovirus (PCR) B. pertussis DNA (PCR) B.parapertussis DNA PCR C. pneumoniae DNA (PCR) Coronavirus OC43 (PCR) Coronavirus HKU1 (PCR) Coronavirus 229E (PCR) Coronavirus NL63 (PCR) Human Metapneumovir PCR Influenza Type A (PCR) Influenza B (RT-PCR) M. pneumoniae (PCR) Parainfluenza 1 (PCR) Parainfluenza 2 (PCR) Parainfluenza 3 (PCR) Parainfluenza 4 (PCR) RSV (PCR) Entero/Rhino (PCR) SARS-CoV-2 (PCR) 03/25/20 03/25/20 03/25/20 14:39 14:39 14:51 WBC RBC Hgb Hct MCV MCH MCHC RDW Coeff of Elie Plt Count Immature Gran % (Auto) Neut % (Auto) Lymph % (Auto) [place] % (Auto) Eos % (Auto) Baso % (Auto) Neut # (Auto) Lymph # (Auto) [place] # (Auto) Eos # (Auto) Baso # (Auto) Immature Gran # (Auto) PT INR Puncture Site O2 Saturation ABG pH ABG pCO2 ABG pO2 ABG HCO3 ABG Total CO2 ABG Base Excess O2 Delivery Device Oxygen Liter Flow Sodium 131.1 L Potassium 4.00 Chloride 92.8 L Carbon Dioxide 32.0 H Anion Gap 10.30 BUN 12.4 Creatinine 0.80 Estimated GFR (MDRD) 70.00 BUN/Creatinine Ratio 15.50 Glucose 99.7 Lactic Acid 0.77 Calcium 9.70 Magnesium 1.78 Total Bilirubin 0.47 AST 27.5 ALT 15.3 Alkaline Phosphatase 179.4 H Total Protein 7.12 Albumin 3.65 Globulin 3.47 Albumin/Globulin Ratio 1.05 Procalcitonin < 0.05 Adenovirus (PCR) B. pertussis DNA (PCR) B.parapertussis DNA PCR C. pneumoniae DNA (PCR) Coronavirus OC43 (PCR) Coronavirus HKU1 (PCR) Coronavirus 229E (PCR) Coronavirus NL63 (PCR) Human Metapneumovir PCR Influenza Type A (PCR) Influenza B (RT-PCR) M. pneumoniae (PCR) Parainfluenza 1 (PCR) Parainfluenza 2 (PCR) Parainfluenza 3 (PCR) Parainfluenza 4 (PCR) RSV (PCR) Entero/Rhino (PCR) SARS-CoV-2 (PCR) 03/25/20 14:56 WBC RBC Hgb Hct MCV MCH MCHC RDW Coeff of Elie Plt Count Immature Gran % (Auto) Neut % (Auto) Lymph % (Auto) [place] % (Auto) Eos % (Auto) Baso % (Auto) Neut # (Auto) Lymph # (Auto) [place] # (Auto) Eos # (Auto) Baso # (Auto) Immature Gran # (Auto) PT INR Puncture Site O2 Saturation ABG pH ABG pCO2 ABG pO2 ABG HCO3 ABG Total CO2 ABG Base Excess O2 Delivery Device Oxygen Liter Flow Sodium Potassium Chloride Carbon Dioxide Anion Gap BUN Creatinine Estimated GFR (MDRD) BUN/Creatinine Ratio Glucose Lactic Acid Calcium Magnesium Total Bilirubin AST ALT Alkaline Phosphatase Total Protein Albumin Globulin Albumin/Globulin Ratio Procalcitonin Adenovirus (PCR) Not detected B. pertussis DNA (PCR) Not detected B.parapertussis DNA PCR Not detected C. pneumoniae DNA (PCR) Not detected Coronavirus OC43 (PCR) Not detected Coronavirus HKU1 (PCR) Not detected Coronavirus 229E (PCR) Not detected Coronavirus NL63 (PCR) Not detected Human Metapneumovir PCR Not detected Influenza Type A (PCR) Not detected Influenza B (RT-PCR) Not detected M. pneumoniae (PCR) Not detected Parainfluenza 1 (PCR) Not detected Parainfluenza 2 (PCR) Not detected Parainfluenza 3 (PCR) Not detected Parainfluenza 4 (PCR) Not detected RSV (PCR) Not detected Entero/Rhino (PCR) Not detected SARS-CoV-2 (PCR) Not detected Orders Category Date Time Status ABG DRAW REQUEST Stat CARDIO 03/25/20 14:10 Completed EKG-(ED ONLY) Stat CARDIO 03/25/20 14:10 Completed EKG-(IP & OP ONLY) Routine CARDIO 03/26/20 08:25 Ordered METERED DOSE INHALATION Routine CARDIO 03/25/20 14:11 Completed METERED DOSE INHALATION Routine CARDIO 03/25/20 14:16 Completed OXYGEN Routine CARDIO 03/25/20 14:10 Completed OXYGEN Routine CARDIO 03/25/20 17:22 Ordered ACTIVITY .BR with BRP CARE 03/25/20 17:24 Active BLOOD GLUCOSE MONITORING 0630,1100,1700,2100 CARE 03/25/20 17:25 Active INTAKE & OUTPUT Q8HR CARE 03/25/20 17:24 Active VITAL SIGNS Q4HR CARE 03/25/20 17:24 Active VITAL SIGNS Q8HR CARE 03/25/20 17:23 Active CARDIAC DIET DIETARY 03/25/20 Dinner Ordered ABG Stat LAB 03/25/20 14:10 Completed BLOOD CULTURE (ED ONLY) Stat LAB 03/25/20 14:39 Received CBC W/ AUTO DIFF DAILY@0600 LAB 03/26/20 06:00 Ordered CBC W/ AUTO DIFF DAILY@0600 LAB 03/27/20 06:00 Ordered CBC W/ AUTO DIFF Stat LAB 03/25/20 14:39 Completed CMP [COMPREHENSIVE METABOLIC PANEL] Stat LAB 03/25/20 14:39 Completed COMPREHENSIVE METABOLIC PANEL DAILY@0600 LAB 03/26/20 06:00 Ordered COMPREHENSIVE METABOLIC PANEL DAILY@0600 LAB 03/27/20 06:00 Ordered LACTIC ACID Stat LAB 03/25/20 14:39 Completed MAGNESIUM Stat LAB 03/25/20 14:39 Completed PROCALCITONIN Stat LAB 03/25/20 14:51 Completed PT WITH INR DAILY@0600 LAB 03/26/20 06:00 Ordered PT WITH INR DAILY@0600 LAB 03/27/20 06:00 Ordered PT WITH INR Stat LAB 03/25/20 14:39 Completed RESPIRATORY PANEL 2.1 (PCR) Stat LAB 03/25/20 14:56 Completed SPUTUM CULTURE Stat LAB 03/25/20 14:10 Received UA [URINALYSIS C & S IF INDICATED] Stat LAB 03/25/20 14:11 Uncollected Albuterol Inhaler(with Spacer) [Ventolin Hfa (Per Puff- MEDS 03/25/20 14:10 Discontinued with Spacer)] 2 puff IH ONCE STA Ceftriaxone/D5w 1 gm Premix [Rocephin 1 gm/50 ml D5w] MEDS 03/25/20 20:30 Ordered 1 gm in 50 ml IV DAILY Enoxaparin Sodium [Lovenox] MEDS 03/25/20 17:30 Ordered 30 mg SUBCUT DAILY Ipratropium Inhaler(Spacer) [Atrovent Hfa Inhaler (Per MEDS 03/25/20 14:16 Discontinued Puff-with Spacer)] 2 puff IH ONCE STA Methylprednisolone Sod Succ/Pf [Solu-Medrol 125 mg] MEDS 03/25/20 14:15 Discontinued 125 mg IVP ONCE STA Ondansetron HCl/Pf [Zofran 4 mg/2 ml] MEDS 03/25/20 17:22 Ordered 4 mg IVP Q6H PRN Potassium Chloride in 0.9%NaCl [Sodium Chloride 0.9%- MEDS 03/25/20 17:30 Ordered KCl 20 Meq] 1,000 ml IV 70 mls/hr Sodium Chloride 0.9% [Sodium Chloride] 1,000 ml MEDS 03/26/20 09:00 Ordered IV QAM RESUSCITATION STATUS Routine OTHERS 03/25/20 17:22 Ordered CHEST, 1V AP ONLY Stat RADS 03/25/20 14:12 Completed PT CONSULT Routine THERAPIES 03/25/20 Ordered Medications Generic Name Dose Route Start Last Admin Trade Name Freq PRN Reason Stop Dose Admin Enoxaparin Sodium 30 mg 03/25/20 17:30 Enoxaparin Sodium 30 Mg/0.3 Ml Syr SUBCUT DAILY OLVNI Aztreonam 2 gm/ Sodium 100 mls @ 133 mls/hr 03/25/20 17:33 03/25/20 17:40 Chloride IV 03/25/20 18:18 133 mls/hr ONCE STA Administration Sodium Chloride 1,000 mls @ 125 mls/hr 03/26/20 09:00 Sodium Chloride IV QAM OLVIN CEFTRIAXONE/D5W 1 GM PREMIX 1 gm in 50 mls @ 75 mls/hr 03/25/20 20:30 Rocephin 1 Gm/50 Ml D5w IV 03/28/20 20:29 DAILY OLVIN Potassium Chloride/Sodium Chloride 1,000 mls @ 70 mls/hr 03/25/20 17:30 Sodium Chloride 0.9%-Kcl 20 Meq IV .[id number] OLVIN Vancomycin HCl 1 gm/ Sodium 250 mls @ 125 mls/hr 03/25/20 22:00 Chloride IV 03/28/20 21:59 Q12HR OLVIN Methylprednisolone Sodium Succinate 125 mg 03/25/20 21:00 Methylprednisolone Sod Succ/Pf 125 Mg/2 Ml Vial IVP Q8HR OLVIN Ondansetron HCl 4 mg 03/25/20 17:22 Ondansetron Hcl/Pf 4 Mg/2 Ml Sdv IVP Q6H PRN Nausea / Vomiting Discontinued Medications Generic Name Dose Route Start Last Admin Trade Name Freq PRN Reason Stop Dose Admin Albuterol Sulfate 2 puff 03/25/20 14:10 03/25/20 14:30 Albuterol Sulfate (Ventolin Hfa) 18 Gm 1 Puff With Spacer IH 03/25/20 14:11 2 puff ONCE STA Administration Ipratropium [place] 2 puff 03/25/20 14:16 03/25/20 14:30 Ipratropium [place] 12.9 Gm Hfa Inhaler Per Puff With Spacer IH 03/25/20 14:17 2 puff ONCE STA Administration Methylprednisolone Sodium Succinate 125 mg 03/25/20 14:15 03/25/20 14:36 Methylprednisolone Sod Succ/Pf 125 Mg/2 Ml Vial IVP 03/25/20 14:16 125 mg ONCE STA Administration Vital Signs: Temp Pulse Resp BP Pulse Ox 03/25/20 13:27 96.8 F L 97 H 22 97/62 92 L Discharge Plan Discharge Patient Disposition: ADMITTED INPATIENT Discharge Problem: Acute exacerbation of chronic obstructive pulmonary disease, Pneumonia ED Provider: SERINA FLORES Condition: Fair Physician Progress Note: Discussed case with Dr Yo who requests admission Explained to patient
[2020-03-25] MEDS ORDERED: SOLU-MEDROL 125 MG IVP STA (14:15)
[2020-03-25] MEDS ORDERED: ATROVENT HFA INHALER (PER PUFF-WITH SPACER) IH STA (14:16)
--- NOTE | 2020-03-25 14:40 | DI ---
EXAM: Frontal view of the chest COMPARISON: Chest radiograph 03/07/2020 HISTORY: Dyspnea FINDINGS: Multiple calcified granulomas. Hyperinflated lungs. Heart size is normal. Aortic calcifications. Mild interstitial and ground-glass opacities at the lung bases. No pleural effusion or pneumothorax. IMPRESSION: Opacities at the lung bases could represent atelectasis or pneumonia. Chronic hyperinflation compatible with emphysema.
[2020-03-25 14:42] LABS: BASOPHILS # (AUTO) 0.1 K/uL (0-0.2); BASOPHILS % (AUTO) 0.3 % (0.0-3.0); EOSINOPHILS # (AUTO) 0.3 K/ul (0.0-0.7); EOSINOPHILS % (AUTO) 1.3 % (0.0-7.0); HEMATOCRIT 34.5 % (37.0-47.0); HEMOGLOBIN 11.1 g/dl (12.0-16.0); IMMATURE GRANULOCYTE # (AUTO) 0.1 (0.0-1.0); IMMATURE GRANULOCYTE % (AUTO) 0.5 % (0.0-5.0); LYMPHOCYTES # (AUTO) 1.3 K/uL (0.60-3.4); MEAN CORPUSCULAR HEMOGLOBIN 28.7 pg (27.0-31.0); MEAN CORPUSCULAR HGB CONC 32.2 (31.8-35.4); MEAN CORPUSCULAR VOLUME 89.1 fl (81.0-99.0); MONOCYTES # (AUTO) 1.3 K/uL (0.4-2.0); MONOCYTES % (AUTO) 7.1 (0-10); NEUTROPHILS # (AUTO) 15.9 K/ul (2.0-6.9); NEUTROPHILS % (AUTO) 83.8 % (42.2-75.2); PLATELET COUNT 299 10^3/uL (140-440); RDW COEFFICIENT OF VARIATION 14.7 % (11.6-14.8); RED BLOOD COUNT 3.87 10^6/ul (4.20-5.40); WHITE BLOOD COUNT 18.99 K/ul (4.6-10.2)
[2020-03-25 14:52] LABS: ALANINE AMINOTRANSFERASE 15.3 U/L (0-35); ALBUMIN 3.65 g/dL (3.5-5.0); ALKALINE PHOSPHATASE 179.4 U/L (53-141); ASPARTATE AMINO TRANSFERASE 27.5 U/L (14-36); BILIRUBIN,TOTAL 0.47 mg/dL (0.2-1.3); BLOOD UREA NITROGEN 12.4 mg/dL (7-17); CALCIUM 9.7 mg/dL (8.4-10.2); CHLORIDE 92.8 mmol/L (98-107); CREATININE 0.8 mg/dL (0.60-1.30); GLUCOSE 99.7 mg/dL (74-106); MAGNESIUM 1.78 mg/dL (1.6-2.3); SODIUM 131.1 mmol/L (134.5-145); TOTAL PROTEIN 7.12 g/dL (6.3-8.2)
[2020-03-25 14:52] LABS: ABG PH 7.5 (7.35-7.45)
[2020-03-25 14:53] LABS: ABG BASE EXCESS 14.2 (-2.0-2.0); ABG HCO3 37.4 (22.0-26.0); ABG OXYGEN SATURATION 96.4 % (95-100); ABG TCO2 38.9 (22.0-28.0)
[2020-03-25 15:12] LABS: PROTHROMBIN TIME 28.5 SEC (9.3-11.0)
[2020-03-25] MEDS ORDERED: SODIUM CHLORIDE IV STA (17:20)
[2020-03-25] MEDS ORDERED: AZACTAM IV STA (17:20)
[2020-03-25] MEDS ORDERED: ZOFRAN 4 MG/2 ML IVP PRN (17:22)
[2020-03-25] MEDS ORDERED: SODIUM CHLORIDE 0.9%-KCL 20 MEQ 1,000 ML IV SCH (17:30)
[2020-03-25] MEDS ORDERED: AZACTAM ONE ×2 (17:31→17:35)
[2020-03-25] MEDS ORDERED: AZACTAM 2 GM in SODIUM CHLORIDE 100 ML IV STA (17:33)
[2020-03-25] MEDS ORDERED: TYLENOL PO PRN (18:11)
[2020-03-25 18:22] VITALS: BMI 15.6
[2020-03-25] MEDS: MUCINEX PO SCH (18:27)
[2020-03-25] MEDS ORDERED: COUMADIN PO SCH (18:30)
[2020-03-25] MEDS ORDERED: VANCOMYCIN 1 GM in SODIUM CHLORIDE 250 ML IV SCH (19:00)
[2020-03-25] MEDS: VENTOLIN HFA (PER PUFF-WITH SPACER) IH SCH (19:45)
[2020-03-25] MEDS: ATROVENT HFA INHALER (PER PUFF-WITH SPACER) IH SCH ×2 (19:45→23:10)
[2020-03-25] MEDS: XANAX PO SCH (20:36)
[2020-03-25] MEDS: PROTONIX PO SCH (20:36)
[2020-03-25] MEDS: BRIMONIDINE TARTRATE 0.2% OPTH SOL EACHEYE SCH (20:36)
[2020-03-25] MEDS: ULTRAM PO SCH (20:36)
[2020-03-25] MEDS: FLORASTOR PO SCH (20:36)
[2020-03-25] MEDS: PHENERGAN WITH CODEINE 6.25/10 MG/5 ML PO PRN (20:37)
[2020-03-25] MEDS: SOLU-MEDROL 125 MG IVP SCH (20:47)
[2020-03-25] MEDS ORDERED: ROCEPHIN 1 GM/50 ML D5W 1 GM/50 ML BAG IV SCH (21:00)
[2020-03-25] MEDS ORDERED: LOVENOX SUBCUT SCH (21:00)
[2020-03-26] MEDS: DEXTROSE 5%-1/2NS IV SOLUTION 1,000 ML IV SCH ×3 (00:46→16:56)
[2020-03-26] MEDS: VENTOLIN HFA (PER PUFF-WITH SPACER) IH SCH ×4 (05:00→21:04)
[2020-03-26] MEDS: ATROVENT HFA INHALER (PER PUFF-WITH SPACER) IH SCH ×4 (05:00→21:04)
[2020-03-26 05:13] LABS: BASOPHILS % (AUTO) 0.1 % (0.0-3.0); HEMATOCRIT 34.8 % (37.0-47.0); HEMOGLOBIN 11.2 g/dl (12.0-16.0); IMMATURE GRANULOCYTE # (AUTO) 0.1 (0.0-1.0); IMMATURE GRANULOCYTE % (AUTO) 0.4 % (0.0-5.0); LYMPHOCYTES # (AUTO) 0.8 K/uL (0.60-3.4); LYMPHOCYTES % (AUTO) 5.8 (10.0-50.0); MEAN CORPUSCULAR HEMOGLOBIN 28.5 pg (27.0-31.0); MEAN CORPUSCULAR HGB CONC 32.2 (31.8-35.4); MEAN CORPUSCULAR VOLUME 88.5 fl (81.0-99.0); MONOCYTES # (AUTO) 0.1 K/uL (0.4-2.0); MONOCYTES % (AUTO) 0.8 (0-10); NEUTROPHILS # (AUTO) 13.2 K/ul (2.0-6.9); NEUTROPHILS % (AUTO) 92.9 % (42.2-75.2); PLATELET COUNT 302 10^3/uL (140-440); RDW COEFFICIENT OF VARIATION 14.6 % (11.6-14.8); RED BLOOD COUNT 3.93 10^6/ul (4.20-5.40); WHITE BLOOD COUNT 14.24 K/ul (4.6-10.2)
[2020-03-26 05:29] LABS: ALANINE AMINOTRANSFERASE 16.7 U/L (0-35); ALBUMIN 3.65 g/dL (3.5-5.0); ALKALINE PHOSPHATASE 162.4 U/L (53-141); ASPARTATE AMINO TRANSFERASE 26.1 U/L (14-36); BILIRUBIN,TOTAL 0.26 mg/dL (0.2-1.3); BLOOD UREA NITROGEN 14.4 mg/dL (7-17); CALCIUM 9.84 mg/dL (8.4-10.2); CARBON DIOXIDE 33.4 mmol/L (22-30.0); CHLORIDE 92.9 mmol/L (98-107); CREATININE 0.77 mg/dL (0.60-1.30); GLUCOSE 174.6 mg/dL (74-106); POTASSIUM 3.95 mmol/L (3.5-5.1); SODIUM 133.1 mmol/L (134.5-145); TOTAL PROTEIN 7.08 g/dL (6.3-8.2)
[2020-03-26 05:33] LABS: PROTHROMBIN TIME 35.5 SEC (9.3-11.0)
[2020-03-26] MEDS: SOLU-MEDROL 125 MG IVP SCH ×3 (06:16→21:03)
[2020-03-26] MEDS: LASIX TAB PO SCH (06:16)
[2020-03-26] MEDS: MUCINEX PO SCH ×2 (06:16→18:03)
[2020-03-26] MEDS: FLORASTOR PO SCH ×2 (08:41→20:59)
[2020-03-26] MEDS: CLARITIN PO SCH (08:41)
[2020-03-26] MEDS: XANAX PO SCH ×3 (08:42→20:59)
[2020-03-26] MEDS: COREG PO SCH ×2 (08:42→16:56)
[2020-03-26] MEDS: PROTONIX PO SCH ×2 (08:42→20:59)
[2020-03-26] MEDS: PREDNISONE PO SCH (08:42)
[2020-03-26] MEDS: ULTRAM PO SCH ×2 (08:42→20:59)
[2020-03-26] MEDS: FERROUS SULFATE PO SCH (08:42)
[2020-03-26] MEDS: BRIMONIDINE TARTRATE 0.2% OPTH SOL EACHEYE SCH ×2 (08:43→21:10)
[2020-03-26] MEDS ORDERED: SODIUM CHLORIDE 1,000 ML IV SCH (09:00)
[2020-03-26] MEDS ORDERED: INVANZ 1 GM in SODIUM CHLORIDE 50 ML IV SCH (09:00)
[2020-03-26] MEDS: MERREM 1 GM/50 ML NACL 1 GM/50 ML BAG IV SCH ×2 (10:16→21:02)
[2020-03-26 13:53] LABS: BILIRUBIN,URINE Negative (NEGATIVE); CLARITY,URINE Clear (CLEAR); COLOR,URINE Yellow (YELLOW); GLUCOSE, URINE (UA) Negative (NEGATIVE); KETONES,URINE Negative (NEGATIVE); LEUKOCYTE ESTERASE ,URINE Negative (NEGATIVE); NITRITE,URINE Negative (NEGATIVE); PH,URINE 5.5 (5-9); PROTEIN,URINE Negative (NEGATIVE); URINE, BLOOD Trace-intact (NEGATIVE); UROBILINOGEN,URINE 0.2 (0.2)
[2020-03-26 14:09] LABS: URINE WBC, MICROSCOPIC 0-2 (0-2)
[2020-03-26 14:10] LABS: BACTERIA,URINE TRACE (NOT PRESENT); YEAST,URINE TRACE (NOT PRESENT)
[2020-03-26] MEDS: PHENERGAN WITH CODEINE 6.25/10 MG/5 ML PO PRN (20:59)
[2020-03-27] MEDS: VENTOLIN HFA (PER PUFF-WITH SPACER) IH SCH ×4 (04:45→19:56)
[2020-03-27] MEDS: ATROVENT HFA INHALER (PER PUFF-WITH SPACER) IH SCH ×4 (04:45→19:57)
[2020-03-27] MEDS: MUCINEX PO SCH ×2 (05:59→17:31)
[2020-03-27] MEDS: LASIX TAB PO SCH (06:00)
[2020-03-27] MEDS: SOLU-MEDROL 125 MG IVP SCH ×3 (06:52→20:35)
[2020-03-27] MEDS: DEXTROSE 5%-1/2NS IV SOLUTION 1,000 ML IV SCH (07:59)
[2020-03-27 08:07] LABS: ABG BASE EXCESS 8.1 (-2.0-2.0); ABG HCO3 31.1 (22.0-26.0); ABG OXYGEN SATURATION 99.4 % (95-100); ABG PH 7.51 (7.35-7.45); ABG TCO2 32.3 (22.0-28.0)
[2020-03-27 08:24] LABS: ALANINE AMINOTRANSFERASE 13.4 U/L (0-35); ALBUMIN 3.31 g/dL (3.5-5.0); ALKALINE PHOSPHATASE 151.3 U/L (53-141); ASPARTATE AMINO TRANSFERASE 20.6 U/L (14-36); BILIRUBIN,TOTAL 0.3 mg/dL (0.2-1.3); BLOOD UREA NITROGEN 14.7 mg/dL (7-17); CALCIUM 9.61 mg/dL (8.4-10.2); CARBON DIOXIDE 30.5 mmol/L (22-30.0); CREATININE 0.57 mg/dL (0.60-1.30); GLUCOSE 134.8 mg/dL (74-106); POTASSIUM 3.5 mmol/L (3.5-5.1); SODIUM 132.9 mmol/L (134.5-145); TOTAL PROTEIN 6.56 g/dL (6.3-8.2)
[2020-03-27 08:28] LABS: BASOPHILS % (AUTO) 0.1 % (0.0-3.0); HEMATOCRIT 30.3 % (37.0-47.0); HEMOGLOBIN 10.1 g/dl (12.0-16.0); IMMATURE GRANULOCYTE # (AUTO) 0.3 (0.0-1.0); IMMATURE GRANULOCYTE % (AUTO) 1.4 % (0.0-5.0); LYMPHOCYTES # (AUTO) 0.8 K/uL (0.60-3.4); MEAN CORPUSCULAR HEMOGLOBIN 28.9 pg (27.0-31.0); MEAN CORPUSCULAR HGB CONC 33.3 (31.8-35.4); MEAN CORPUSCULAR VOLUME 86.6 fl (81.0-99.0); MONOCYTES # (AUTO) 0.5 K/uL (0.4-2.0); MONOCYTES % (AUTO) 2.5 (0-10); NEUTROPHILS # (AUTO) 19.5 K/ul (2.0-6.9); PLATELET COUNT 296 10^3/uL (140-440); RDW COEFFICIENT OF VARIATION 14.6 % (11.6-14.8); WHITE BLOOD COUNT 21.16 K/ul (4.6-10.2)
[2020-03-27 08:32] LABS: PROTHROMBIN TIME 34.7 SEC (9.3-11.0)
[2020-03-27] MEDS: MERREM 1 GM/50 ML NACL 1 GM/50 ML BAG IV SCH ×2 (09:39→20:36)
[2020-03-27] MEDS: XANAX PO SCH ×3 (09:39→20:35)
[2020-03-27] MEDS: FLORASTOR PO SCH ×2 (09:39→20:35)
[2020-03-27] MEDS: COREG PO SCH ×2 (09:39→17:31)
[2020-03-27] MEDS: CLARITIN PO SCH (09:39)
[2020-03-27] MEDS: PROTONIX PO SCH ×2 (09:39→20:36)
[2020-03-27] MEDS: ULTRAM PO SCH ×2 (09:40→20:36)
[2020-03-27] MEDS: PREDNISONE PO SCH (09:40)
[2020-03-27] MEDS: FERROUS SULFATE PO SCH (09:40)
[2020-03-27] MEDS: BRIMONIDINE TARTRATE 0.2% OPTH SOL EACHEYE SCH ×2 (09:40→20:37)
--- NOTE | 2020-03-27 10:25 | PCM.PROG ---
Attending Provider: ATTENDING PROVIDER: Dr. RAISA RASCON This patient is seen with Zuly Henry, Nurse Practitioner. DATE OF SERVICE: 03/27/20 SUBJECTIVE: This 79 year old /WHITE F was hospitalized 03/25/20. The patient is resting comfortably. She is having intermittent headaches associated with dizziness in the frontal and maxillary sinus areas. She has a Productive cough with thick mucous. States she feels some better today. REVIEW OF SYSTEMS: CONSTITUTIONAL: No night sweats. No fatigue, malaise, lethargy. No fever or chills. Weakness. HEENT: Eyes: No visual changes. No eye pain. No eye discharge. ENT: No runny nose. No epistaxis. No sinus pain. No odynophagia. No congestion. RESPIRATORY: Cough, no congestion. No hemoptysis. No shortness of breath. CARDIOVASCULAR: No angina symptoms. No CHF symptoms. No atypical chest pain for CAD. No palpitations. No orthopnea.. GASTROINTESTINAL: No abdominal pain. No nausea or vomiting. No diarrhea or constipation. No hematemesis. No hematochezia. GENITOURINARY: No urgency. No frequency. No dysuria. No hematuria. No obstructive symptoms. No discharge. No pain. No significant abnormal bleeding. MUSCULOSKELETAL: No musculoskeletal pain; no joint swelling. NEUROLOGICAL: Awake, alert, oriented to time, place and person. Headache. No neck pain. No syncope. No seizures. No dizziness. PSYCHIATRIC: Not anxious. No depression. No suicidal thoughts. No homicidal thoughts. SKIN: No rash. No lesions. No wounds. ENDOCRINE: No unexplained weight loss. No weight gain. HEMATOLOGIC/LYMPHATIC: No anemia. No purpura. No petechiae. No prolonged or excessive bleeding. No palpable lymph nodes. PHYSICAL EXAMINATION: GENERAL: The patient is awake, alert and oriented, lying in bed in no distress. VITAL SIGNS: Temperature 97.8 F, Pulse 74, Respiratory Rate 20, BP 148/70, Pulse Ox 100% HEENT: Head normocephalic, atraumatic. Eyes: Extraocular muscles are intact. Pupils are equal, round and reactive to light and accommodation. Ears: No lesions. Nose appeared normal. Throat: No exudate or erythema. NECK: Supple. No JVD, no carotid bruit. No lymphadenopathy or thyromegaly. LUNGS: Severely diminished breath sounds, bilateral rhonchit . Clear to auscultation. Percussion note normal. Chest symmetrical. HEART: S1, S2, no S3. No murmurs. No cyanosis or clubbing. No ascites. P ulses: Dorsalis pedis and posterior tibial pulses +1 to +2 both sides. ABDOMEN: Soft. Non-tender. Bowel sounds active. No CVA tenderness. No mass felt. EXTREMITIES: No edema. Full range of motion of all extremities, equal. NEUROLOGIC: No focal deficit. Cranial nerves II through XII are grossly intact. No headache, no double vision or headache. SKIN: Not dry. Intact. Turgor-normal. LYMPHATIC: No palpable lymph nodes/no lymphedema. MUSCULOSKELETAL: Normal joints with no swelling. Muscle tone is normal. LAB REVIEW: 03/26/20 05:00 03/26/20 05:00 03/26/20 13:30: Urine Color Yellow, Urine Clarity Clear, Urine pH 5.5, Ur Specific Rienzi 1.010, Urine Protein Negative, Urine Glucose (UA) Negative, Urine Ketones Negative, Urine Blood Trace-intact H, Urine Nitrite Negative, Urine Bilirubin Negative, Urine Urobilinogen 0.2, Ur Leukocyte Esterase Nega tive, Urine Microscopic RBC 2-5, Urine Microscopic WBC 0-2, Ur Squamous Epith Cells 5-10, Urine Bacteria Trace, Urine Yeast Trace ASSESSMENT: Please see below. 1. Acute pneumonia 2. Severe COPD 3. Chronic respiratory failure 4. Headaches 5. Hyponatremia 6. History of PE/DVT 7. Chronic anticoagulation PLAN: 1. CT brain and sinuses with and without contrast 2. Hold Coumadin today 3. Continue IV antibiotics and steroids. Plan and coordination of the patient's care discussed in the presence of Manager Action and nurse. SCRIBED BY: Zachariah REDDist scribed while in presence of service performed by Dr. Rascon/Zuly Henry APRN on 03/27/20 ([id number])
--- NOTE | 2020-03-27 12:12 | CT ---
EXAM: CT Sinuses with and without contrast. HISTORY: Frequent headaches. COMPARISON: Head CT 06/30/2017. TECHNIQUE: Multiple axial images of the sinuses were obtained prior to and following intravenous adm inistration of 75 mL of Omnipaque 350. Images were reformatted in the sagittal and coronal planes. FINDINGS: Maxillary sinuses: Clear. Ostiomeatal units are patent. Ethmoid sinuses: Clear. Sphenoid sinuses: Clear. Frontal sinuses: Clear. Nasal cavity: Leftward deviation of the nasal septum. Large right kayli bullosa. No fracture identified. Mastoid air cells are clear. No focal soft tissue abnormality is identified. Globes and intraorbital structures are intact. Refe r to same day head CT report for details on intracranial findings. There are degenerative changes of the cervical spine noted. IMPRESSION: 1. No acute abnormality of the sinuses. 2. Leftward nasal septal deviation and large right kayli bullosa.
--- NOTE | 2020-03-27 12:19 | CT ---
EXAM: CT Head HISTORY: Frequent headaches COMPARISON: 06/30/2017 TECHNIQUE: CT head performed without and with IV contrast FINDINGS: There is no mass effect, midline shift, or intracranial hemmorhage. No evidence of abnorm al intracranial enhancement or mass. Hi white differentiation is preserved. There is no extra-axi al collection. Extensive periventricular and patchy subcortical white matter hypoattenuation. Mild g eneralized cerebral atrophy. The ventricles and sulci are unremarkable. The basal cisterns are paten t. There is no depressed calvarial fracture. The mastoid air cells are clear. The visualized parana james sinuses are clear. IMPRESSION: 1. No acute intracranial abnormality. 2. Moderate to advanced chronic small vessel ischemic changes of the white matter with mild generali zed cerebral atrophy.
[2020-03-27] MEDS: SYMBICORT 160-4.5 MCG INHALER IH SCH ×2 (15:15→20:37)
[2020-03-27] MEDS: PHENERGAN WITH CODEINE 6.25/10 MG/5 ML PO PRN (20:36)
[2020-03-28 04:32] LABS: BASOPHILS % (AUTO) 0.1 % (0.0-3.0); HEMATOCRIT 31.4 % (37.0-47.0); HEMOGLOBIN 10.3 g/dl (12.0-16.0); IMMATURE GRANULOCYTE # (AUTO) 0.2 (0.0-1.0); LYMPHOCYTES # (AUTO) 0.7 K/uL (0.60-3.4); LYMPHOCYTES % (AUTO) 4.7 (10.0-50.0); MEAN CORPUSCULAR HEMOGLOBIN 28.8 pg (27.0-31.0); MEAN CORPUSCULAR HGB CONC 32.8 (31.8-35.4); MEAN CORPUSCULAR VOLUME 87.7 fl (81.0-99.0); MONOCYTES # (AUTO) 0.3 K/uL (0.4-2.0); MONOCYTES % (AUTO) 2.2 (0-10); NEUTROPHILS # (AUTO) 14.3 K/ul (2.0-6.9); PLATELET COUNT 288 10^3/uL (140-440); RDW COEFFICIENT OF VARIATION 14.6 % (11.6-14.8); RED BLOOD COUNT 3.58 10^6/ul (4.20-5.40); WHITE BLOOD COUNT 15.51 K/ul (4.6-10.2)
[2020-03-28] MEDS: VENTOLIN HFA (PER PUFF-WITH SPACER) IH SCH ×4 (04:43→20:30)
[2020-03-28 04:44] LABS: PROTHROMBIN TIME 22.3 SEC (9.3-11.0)
[2020-03-28] MEDS: ATROVENT HFA INHALER (PER PUFF-WITH SPACER) IH SCH ×4 (04:44→20:30)
[2020-03-28 04:47] LABS: ALANINE AMINOTRANSFERASE 13.6 U/L (0-35); ALBUMIN 3.11 g/dL (3.5-5.0); ALKALINE PHOSPHATASE 147.3 U/L (53-141); ASPARTATE AMINO TRANSFERASE 20.4 U/L (14-36); BILIRUBIN,TOTAL 0.23 mg/dL (0.2-1.3); BLOOD UREA NITROGEN 23.2 mg/dL (7-17); CALCIUM 9.75 mg/dL (8.4-10.2); CARBON DIOXIDE 33.9 mmol/L (22-30.0); CHLORIDE 98.3 mmol/L (98-107); CREATININE 0.82 mg/dL (0.60-1.30); GLUCOSE 127.2 mg/dL (74-106); POTASSIUM 3.42 mmol/L (3.5-5.1); SODIUM 135.2 mmol/L (134.5-145); TOTAL PROTEIN 6.25 g/dL (6.3-8.2)
[2020-03-28] MEDS: SOLU-MEDROL 125 MG IVP SCH ×3 (05:40→20:05)
[2020-03-28] MEDS: LASIX TAB PO SCH (05:54)
[2020-03-28] MEDS: MUCINEX PO SCH ×2 (05:54→20:41)
[2020-03-28] MEDS: CLARITIN PO SCH (08:55)
[2020-03-28] MEDS: SYMBICORT 160-4.5 MCG INHALER IH SCH ×2 (08:55→20:46)
[2020-03-28] MEDS: FLORASTOR PO SCH ×2 (08:55→20:41)
[2020-03-28] MEDS: MERREM 1 GM/50 ML NACL 1 GM/50 ML BAG IV SCH ×2 (08:55→20:46)
[2020-03-28] MEDS: ULTRAM PO SCH ×2 (08:56→20:41)
[2020-03-28] MEDS: FERROUS SULFATE PO SCH (08:56)
[2020-03-28] MEDS: XANAX PO SCH ×3 (08:56→20:41)
[2020-03-28] MEDS: COREG PO SCH ×2 (08:56→17:18)
[2020-03-28] MEDS: K-DUR PO SCH (08:56)
[2020-03-28] MEDS: PROTONIX PO SCH ×2 (08:56→17:18)
[2020-03-28] MEDS: BRIMONIDINE TARTRATE 0.2% OPTH SOL EACHEYE SCH ×2 (08:57→20:42)
--- NOTE | 2020-03-28 09:39 | PCM.PROG ---
Attending Provider: ATTENDING PROVIDER: Dr. RAISA RASCON This patient is seen with Zuly Henry, Nurse Practitioner. DATE OF SERVICE: 03/28/20 SUBJECTIVE: This 79 year old /WHITE F was hospitalized 03/25/20. The patient is resting comfortably. Cough has improved. States she has had some episodes of dizziness where she has fallen. CT of the brain was normal yesterday. REVIEW OF SYSTEMS: CONSTITUTIONAL: No night sweats. No fatigue, malaise, lethargy. No fever or chi lls. Weakness. HEENT: Eyes: No visual changes. No eye pain. No eye discharge. ENT: No runny nose. No epistaxis. No sinus pain. No odynophagia. No congestion. RESPIRATORY: Cough, no congestion. No hemoptysis. Shortness of breath. CARDIOVASCULAR: No angina symptoms. No CHF symptoms. No atypical chest pain for CAD. No palpitations. No orthopnea.. GASTROINTESTINAL: No abdominal pain. No nausea or vomiting. No diarrhea or constipation. No hematemesis. No hematochezia. GENITOURINARY: No urgency. No frequency. No dysuria. No hematuria. No obstructive symptoms. No discharge. No pain. No significant abnormal bleeding. MUSCULOSKELETAL: No musculoskeletal pain; no joint swelling. NEUROLOGICAL: Awake, alert, oriented to time, place and person. No headache. No neck pain. No syncope. No seizures. No dizziness. PSYCHIATRIC: Not anxious. No depression. No suicidal thoughts. No homicidal thoughts. SKIN: No rash. No lesions. No wounds. ENDOCRINE: No unexplained weight loss. No weight gain. HEMATOLOGIC/LYMPHATIC: No anemia. No purpura. No petechiae. No prolonged or excessive bleeding. No palpable lymph nodes. PHYSICAL EXAMINATION: GENERAL: The patient is awake, alert and oriented, lying in bed in no distress. VITAL SIGNS: Temperature 97.9 F, Pulse 84, Respiratory Rate 18, BP 148/67, Pulse Ox 95% HEENT: Head normocephalic, atraumatic. Eyes: Extraocular muscles are intact. Pupils are equal, round and reactive to light and accommodation. Ears: No lesions. Nose appeared normal. Throat: No exudate or erythema. NECK: Supple. No JVD, no carotid bruit. No lymphadenopathy or thyromegaly. LUNGS: Diminished breath sounds, improved. Clear to auscultation. Percussion note normal. Chest symmetrical. HEART: S1, S2, no S3. No murmurs. No cyanosis or clubbing. No ascites. Pulses: Dorsalis pedis and posterior tibial pulses +1 to +2 both sides. ABDOMEN: Soft. Non-tender. Bowel sounds active. No CVA tenderness. No mass felt. EXTREMITIES: No edema. Full range of motion of all extremities, equal. NEUROLOGIC: No focal deficit. Cranial nerves II through XII are grossly intact. No headache, no double vision or headache. SKIN: Not dry. Intact. Turgor-normal. LYMPHATIC: No palpable lymph nodes/no lymphedema. MUSCULOSKELETAL: Normal joints with no swelling. Muscle tone is normal. LAB REVIEW: 03/28/20 04:00 03/28/20 04:00 03/28/20 04:00: Sodium 135.2, Potassium 3.42 L, Chloride 98.3, Carbon Dioxide 33.9 H, Anion Gap 6.42, BUN 23.2 H, Creatinine 0.82, Estimated GFR (MDRD) 68.00, BUN/Creatinine Ratio 28.29, Glucose 127.2 H, Calcium 9.75, Total Bilirubin 0.23, AST 20.4, ALT 13.6, Alkaline Phosphatase 147.3 H, Total Protein 6.25 L, Albumin 3.11 L, Globulin 3.14, Albumin/Globulin Ratio 0.99 03/28/20 04:00: PT 22.3 H D, INR 2.40 03/28/20 04:00: WBC 15.51 H D, RBC 3.58 L, Hgb 10.3 L, Hct 31.4 L, MCV 87.7, MCH 28.8, MCHC 32.8, RDW Coeff of Elie 14.6, Plt Count 288, Immature Gran % (Auto) 1.0, Neut % (Auto) 92.0 H, Lymph % (Auto) 4.7 L, [place] % (Auto) 2.2, Eos % (Auto) 0.0, Baso % (Auto) 0.1, Neut # (Auto) 14.3 H, Lymph # (Auto) 0.7, [place] # (Auto) 0.3 L, Eos # (Auto) 0.0, Baso # (Auto) 0.0, Immature Gran # (Auto) 0.2 03/27/20 08:05: Puncture Site R radial, O2 Saturation 99.4, ABG pH 7.51 H*, ABG pCO2 39.0, ABG pO2 145.0 H, ABG HCO3 31.1 H, ABG Total CO2 32.3 H, ABG Base Excess 8.1 H, [place] Test +, O2 Delivery Device nasal cannula, Oxygen Liter Flow 3.00 03/27/20 08:00: Sodium 132.9 L, Potassium 3.50, Chloride 98.0, Carbon Dioxide 30.5 H, Anion Gap 7.90, BUN 14.7, Creatinine 0.57 L, Estimated GFR (MDRD) 103.00, BUN/Creatinine Ratio 25.78, Glucose 134.8 H, Calcium 9.61, Total Bilirubin 0.30, AST 20.6, ALT 13.4, Alkaline Phosphatase 151.3 H, Total Protein 6.56, Albumin 3.31 L, Globulin 3.25, Albumin/Globulin Ratio 1.01 03/27/20 07:30: WBC 21.16 H D, RBC 3.50 L, Hgb 10.1 L, Hct 30.3 L, MCV 86.6, MCH 28.9, MCHC 33.3, RDW Coeff of Elie 14.6, Plt Count 296, Immature Gran % (Auto) 1.4, Neut % (Auto) 92.0 H, Lymph % (Auto) 4.0 L, [place] % (Auto) 2.5, Eos % (Auto) 0.0, Baso % (Auto) 0.1, Neut # (Auto) 19.5 H, Lymph # (Auto) 0.8, [place] # (Auto) 0.5, Eos # (Auto) 0.0, Baso # (Auto) 0.0, Immature Gran # (Auto) 0.3 03/27/20 06:00: PT 34.7 H, INR 3.82 ASSESSMENT: Please see below. 1. Persistent bilateral pneumonia 2. Shortness of breath 3. Severe COPD 4. Generalized weakness PLAN: 1. Resume Coumadin today 2. Continue antibiotics 3. Bilateral carotid ultrasound 4. Potassium 20 meq daily. Plan and coordination of the patient's care discussed in the presence of Pipe Stress Engineer and nurse. SCRIBED BY: Luis REDD scribed while in presence of service performed by Dr. Rascon/Zuly Henry APRN on 03/28/20 ([id number])
--- NOTE | 2020-03-28 09:51 | HP ---
DATE OF SERVICE: 03/25/20 HISTORY OF PRESENT ILLNESS: 79-year-old white female presented to the emergency room with increasing shortness of breath today, cough and congestion. Recently finished treatment for pneumonia but feels she is having worsening symptoms. She has been home. No know Covid exposure. PAST MEDICAL HISTORY: Recent bilateral pneumonia with Pseudomonas Severe COPD - Oxygen and steroid dependent Chronic anticoagulation due to history of PE and DVT Persistent right upper lobe pneumonia History of DVT and PE on Coumadin Hypertension Chronic anemia Chronic respiratory failure Pulmonary fibrosis Pulmonary nodules - sees Dr. Kristen Martel GERD Osteopenia Degenerative disk disease History of tobacco use, stopped 10 years ago Polyarthritis Recurrent gout T9 compression fracture which is stable PAST SURGICAL HISTORY: Hysterectomy Appendectomy Left cataract REVIEW OF SYSTEMS: CONSTITUTIONAL: Positive for weakness. No night sweats. No fatigue, malaise, lethargy. No fever or chills. HEENT: Eyes: No visual changes. No eye pain. No eye discharge. ENT: No runny nose. No epistaxis. No sinus pain. No sore throat. No odynophagia. No ear pain. No congestion. RESPIRATORY: Positive for shortness of breath. Positive for cough. No hemoptysis. CARDIOVASCULAR: No angina symptoms. No CHF symptoms. No atypical chest pain for CAD. No palpitations. No PND. No orthopnea. GASTROINTESTINAL: No abdominal pain. No nausea or vomiting. No diarrhea or constipation. No hematemesis. No hematochezia. GENITOURINARY: No urgency. No frequency. No dysuria. No hematuria. No obstructive symptoms. No discharge. No pain. No significant abnormal bleeding. MUSCULOSKELETAL: No musculoskeletal pain. No joint swelling. No arthritis. NEUROLOGICAL: No headache. No neck pain. No syncope. No seizures. No dizziness. PSYCHIATRIC: Not anxious. No depression. No suicidal thoughts. No homicidal thoughts. SKIN: No rash. No lesions. No wounds. ENDOCRINE: No unexplained weight loss. No weight gain. HEMATOLOGIC/LYMPHATIC: No anemia. No purpura. No petechiae. No prolonged or excessive bleeding. No palpable lymph nodes. PERSONAL/FAMILY/SOCIAL HISTORY: She lives at home with her . No alcohol or ilicit drug use. Again, she quit smoking about 10 years ago. MEDICATIONS: Alprazolam 0.25 mg p.o. t.i.d. Carvedilol 3.125 mg p.o. b.i.d. with meal Pantoprazole 40 mg p.o. b.i.d. Ferrous Sulfate 325 mg p.o. daily Guaifenesin 600 mg p.o. q.12hr Furosemide 20 mg p.o. q.d a.c. Tramadol 50 mg p.o. b.i.d. Brimonidine one drop both eyes b.i.d. Acetaminophen 650 mg p.o. q.4h p.r.n. Loratadine 10 mg p.o. daily Budesonide 0.5 mg INH b.i.d. Azithromycin 250 mg -see Rx instructions Ipratropium-Albuterol 3 mL INH b.i.d. Prednisone 5 mg p.o. daily Promethazine-Codeine 10 mL p.o. q.6h p.r.n. Saccharomyces boulardii 250 mg p.o. b.i.d. Warfarin 3 mg p.o. q.6 p.m. ALLERGIES: ACETYLCYSTEINE, HYDROCODONE, CIPROFLOXACIN, GI COCKTAIL, MUCOMYST PHYSICAL EXAMINATION: VITAL SIGNS: Temperature 96.8, heart rate 97, respirations 22, blood pressure 97/62, pulse ox 92% on 3.5L. HEENT: Pallor positive. Head normocephalic, atraumatic. Eyes: Extraocular muscles are intact. Pupils are equal, round and reactive to light and accommodation. Ears: No lesions. Nose appeared normal. Throat: No exudate or erythema. NECK: Supple. No JVD, no carotid bruit. No lymphadenopathy or thyromegaly. LUNGS: Diminished breath sounds bilaterally with loud rhonchi bilaterally. Visibly short of breath. Percussion note normal. Chest symmetrical. HEART: S1, S2, no S3. No murmur. No cyanosis or clubbing. No ascites. Pulses: Dorsalis pedis and posterior tibial pulses +1 to +2 bilaterally. ABDOMEN: Soft. Nontender. Bowel sounds active. No CVA tenderness. No mass felt. EXTREMITIES: No edema. Full range of motion of all extremities, equal. NEUROLOGIC: No focal deficit. Cranial nerves II through XII are grossly intact. No headache, no double vision or headache. SKIN: Not dry. Intact. Turgor - normal. LYMPHATIC: No palpable lymph nodes/no lymphedema. MUSCULOSKELETAL: Normal joints with no swelling. Muscle tone is normal. LABS/IMAGING/ABGs: PCR is negative for Covid. Negative for all other agents listed on PCR. Chest x- ray shows opacity at the lung bases could represent atelectasis or pneumonia. Chronic hyperinflamation compatible with emphysema. ABGs on 3.5L pH 7.5, pc02 48, p02 77, base excess 14.2, bicarb 37.4, TC02 38.9, 02 sat 96.4. White count 18,000, hemoglobin 11.1, hematocrit 34.5, platelets 299. Sodium 131, potassium 4, BUN 12, creatinine 0.8, alkaline phosphatase 179, AST 27, ALT 15.3, glucose 99. INR 3.1. ASSESSMENT: 1. Bilateral pneumonia 2. Acute COPD exacerbation 3. Chronic respiratory failure 4. History of DVT/PE on Coumadin 5. Hypertension 6. Chronic anemia 7. Pulmonary fibrosis 8. Anxiety 9. Osteopenia PLAN: 1. We will admit. 2. Routine telemetry orders. 3. CBC, CMP, INR daily. 4. Start Merem per pharmacy instructions IV daily. 5. Albuterol inhaler two puffs t.i.d. scheduled. 6. Symbicort 160 two puffs b.i.d. scheduled. 7. Solu-Cortef 125 IV q.8. 8. Oxygen at 2 to 3L as needed. 9. Sputum for culture and sensitivity. 10. Blood cultures times two. 11. Continue all home medications. 12. NS IV at 75 cc/hr. 13. Will follow closely. TIME SPENT: More than 70 minutes. MTDD
--- NOTE | 2020-03-28 11:17 | PN ---
DATE OF SERVICE: 03/25/20 SUBJECTIVE: The patient was hospitalized today with complaint of having cough and congestion. The patient was seen and examined by the attending and was diagnosed to have pneumonia, recurrent Pseudomonas pneumonia. She has been short of breath with cough, congestion and poor appetite the past few days. The patient hasn't had any contact with anyone who had Covid. PHYSICAL EXAMINATION: HEENT: Head normocephalic, atraumatic. Eyes: Extraocular muscles are intact. Pupils are equal, round and reactive to light and accommodation. Ears: No lesions. Nose appeared normal. Throat: No exudate or erythema. NECK: Supple. No JVD, no carotid bruit. No lymphadenopathy or thyromegaly. LUNGS: Decreased breath sounds with mild wheeze. Percussion note normal. Chest symmetrical. HEART: S1, S2, no S3. No murmurs. No cyanosis or clubbing. No ascites. Pulses: Dorsalis pedis and posterior tibial pulses +1 to +2 bilaterally. ABDOMEN: Soft. Nontender. Bowel sounds active. No CVA tenderness. No mass felt. EXTREMITIES: No edema. Full range of motion of all extremities, equal. NEUROLOGIC: No focal deficit. Cranial nerves II through XII are grossly intact. No headache, no double vision or headache. SKIN: Not dry. Intact. Turgor - normal. LYMPHATIC: No palpable lymph nodes/no lymphedema. MUSCULOSKELETAL: Normal joints with no swelling. Muscle tone is normal. The patient's oxygen saturation is 96% on 2L. She has telemetry with no ventricular arrhythmias or tachy arrhythmias. The patient's Covid-19 was negative. ASSESSMENT: 1. PSEUDOMONAS PNEUMONIA 2. SEVERE CHRONIC LUNG DISEASE 3. ATRIAL FIBRILLATION PLAN: 1. Continue Coumadin, INR is 3.1. 2. Start Ertapenem. 3. IV fluids, slow. 4. Telemetry. 5. Steroids. 6. The patient is DNR. PROGNOSIS: Guarded. TIME SPENT: More than 30 minutes. Plan and coordination of the patient's care discussed in the presence of nurse. ANETA
--- NOTE | 2020-03-28 11:26 | PN ---
DATE OF SERVICE: 03/26/20 SUBJECTIVE: This is a 79-year-old white female hospitalized with acute bronchitis, pneumonitis, has recurrent Pseudomonas. She almost passed out. Her appetite had worsened, shortness of breath on minimal exertion. She has been coughing more and unable to bring it up. The patient deteriorated within the past 48 hours and is Covid negative. REVIEW OF SYSTEMS: CONSTITUTIONAL: Weakness. No night sweats. No fatigue, malaise, lethargy. No fever or chills. HEENT: Eyes: No visual changes. No eye pain. No eye discharge. ENT: No runny nose. No epistaxis. No sinus pain. No sore throat. No odynophagia. No congestion. RESPIRATORY: Coughing, unable to bring up, very weak. No hemoptysis. Short of breath on minimal exertion. CARDIOVASCULAR: No angina symptoms. No CHF symptoms. No atypical chest pain for CAD. No palpitations. No PND. No orthopnea. GASTROINTESTINAL: Mild nausea. No abdominal pain. No vomiting. No diarrhea or constipation. No hematemesis. No hematochezia. GENITOURINARY: No urgency. No frequency. No dysuria. No hematuria. No obstructive symptoms. No discharge. No pain. No significant abnormal bleeding. MUSCULOSKELETAL: No musculoskeletal pain; no joint swelling. NEUROLOGICAL: No headache. No neck pain. No syncope. No seizures. No dizziness. PSYCHIATRIC: Not anxious. No depression. No suicidal thoughts. No homicidal thoughts. SKIN: No rash. No lesions. No wounds. ENDOCRINE: No unexplained weight loss. No weight gain. HEMATOLOGIC/LYMPHATIC: No anemia. No purpura. No petechiae. No prolonged or excessive bleeding. No palpable lymph nodes. PHYSICAL EXAMINATION: VITAL SIGNS: Temperature 98, pulse 76, respiratory rate 18, BP 112/63, pulse ox 97%. HEENT: Head normocephalic, atraumatic. Eyes: Extraocular muscles are intact. Pupils are equal, round and reactive to light and accommodation. Ears: No lesions. Nose appeared normal. Throat: No exudate or erythema. NECK: Supple. No JVD, no carotid bruit. No lymphadenopathy or thyromegaly. LUNGS: Decreased breath sounds with bilateral crepitations. At present air entry acceptable. Percussion note normal. Chest symmetrical. HEART: S1, S2, no S3. No murmurs. No cyanosis or clubbing. No ascites. Pulses: Dorsalis pedis and posterior tibial pulses +1 to +2 bilaterally. ABDOMEN: Soft. Nontender. Bowel sounds active. No CVA tenderness. No mass felt. EXTREMITIES: No edema. Full range of motion of all extremities, equal. NEUROLOGIC: No focal deficit. Cranial nerves II through XII are grossly intact. No headache, no double vision or headache. SKIN: Not dry. Intact. Turgor - normal. LYMPHATIC: No palpable lymph nodes/no lymphedema. MUSCULOSKELETAL: Normal joints with no swelling. Muscle tone is normal. LABS: Hemoglobin 11.2, hematocrit 34, WBC 14,000, normal differential. Creatinine 0.7, BUN 14, potassium 3.9. ASSESSMENT: 1. Recurrent pneumonia with severe chronic lung disease. 2. Malnutrition. PLAN: 1. Will continue the patient's Meropenem, IV steroids, Xanax, Protonix. PROGNOSIS: Poor. TIME SPENT: More than 30 minutes. Plan and coordination of the patient's care discussed in the presence of nurse. ANETA
--- NOTE | 2020-03-28 12:12 | US ---
EXAM: Ultrasound bilateral carotid duplex. HISTORY: Near-syncope. COMPARISON: None. TECHNIQUE: A duplex Doppler study was performed consisting of integrated two dimensional (2D) real-t boby imaging color flow Doppler and Doppler spectral analysis utilizing linear array probes. FINDINGS: Please note that estimates of internal carotid artery stenoses are based upon NASCET crite kavya. Right carotid: Calcified plaquing noted without visualized 50% or greater stenosis. Peak systolic v elocity measurement in the right internal carotid artery is 0.6 meters per second. Right internal to common carotid artery peak systolic velocity ratio measures 1.0. End diastolic velocity measurement in the right internal carotid artery is 0.14 meters per second. Flow in the right vertebral artery is antegrade. Left carotid: Calcified plaquing without visualized 50% or greater stenosis. Peak systolic velocity measurement in the left internal carotid artery is 0.65 meters per second. Left internal to common carotid artery peak systolic velocity ratio measures 1.0. End diastolic velocity measurement in the left internal carotid artery measures 0.13 meters per second. Flow in the left vertebral artery is a ntegrade. IMPRESSION: 1. Mild, less than 50%, right and left internal carotid artery stenoses. 2. Antegrade flow in both vertebral arteries.
[2020-03-28] MEDS: COUMADIN PO SCH (17:19)
[2020-03-28] MEDS: PHENERGAN WITH CODEINE 6.25/10 MG/5 ML PO PRN (22:33)
[2020-03-29] MEDS: ATROVENT HFA INHALER (PER PUFF-WITH SPACER) IH SCH ×4 (05:05→19:15)
[2020-03-29] MEDS: VENTOLIN HFA (PER PUFF-WITH SPACER) IH SCH ×4 (05:05→19:15)
[2020-03-29] MEDS: SOLU-MEDROL 125 MG IVP SCH ×2 (05:39→13:01)
[2020-03-29] MEDS: PROTONIX PO SCH ×2 (05:39→16:19)
[2020-03-29] MEDS: LASIX TAB PO SCH (05:39)
[2020-03-29 05:57] LABS: BASOPHILS % (AUTO) 0.1 % (0.0-3.0); HEMATOCRIT 33.2 % (37.0-47.0); HEMOGLOBIN 10.6 g/dl (12.0-16.0); IMMATURE GRANULOCYTE # (AUTO) 0.1 (0.0-1.0); IMMATURE GRANULOCYTE % (AUTO) 1.1 % (0.0-5.0); LYMPHOCYTES # (AUTO) 0.8 K/uL (0.60-3.4); LYMPHOCYTES % (AUTO) 7.4 (10.0-50.0); MEAN CORPUSCULAR HEMOGLOBIN 28.3 pg (27.0-31.0); MEAN CORPUSCULAR HGB CONC 31.9 (31.8-35.4); MEAN CORPUSCULAR VOLUME 88.5 fl (81.0-99.0); MONOCYTES # (AUTO) 0.3 K/uL (0.4-2.0); MONOCYTES % (AUTO) 2.2 (0-10); NEUTROPHILS % (AUTO) 89.2 % (42.2-75.2); PLATELET COUNT 290 10^3/uL (140-440); RDW COEFFICIENT OF VARIATION 14.6 % (11.6-14.8); RED BLOOD COUNT 3.75 10^6/ul (4.20-5.40); WHITE BLOOD COUNT 11.15 K/ul (4.6-10.2)
[2020-03-29 06:11] LABS: ALBUMIN 3.4 g/dL (3.5-5.0); ALKALINE PHOSPHATASE 160.5 U/L (53-141); ASPARTATE AMINO TRANSFERASE 27.6 U/L (14-36); BILIRUBIN,TOTAL 0.32 mg/dL (0.2-1.3); BLOOD UREA NITROGEN 27.6 mg/dL (7-17); CALCIUM 9.8 mg/dL (8.4-10.2); CARBON DIOXIDE 34.7 mmol/L (22-30.0); CHLORIDE 97.4 mmol/L (98-107); CREATININE 0.72 mg/dL (0.60-1.30); GLUCOSE 116.1 mg/dL (74-106); POTASSIUM 3.83 mmol/L (3.5-5.1); SODIUM 136.4 mmol/L (134.5-145); TOTAL PROTEIN 6.64 g/dL (6.3-8.2)
[2020-03-29 06:32] LABS: PROTHROMBIN TIME 15.9 SEC (9.3-11.0)
[2020-03-29] MEDS: SYMBICORT 160-4.5 MCG INHALER IH SCH ×2 (08:15→20:29)
[2020-03-29] MEDS: CLARITIN PO SCH (08:16)
[2020-03-29] MEDS: MUCINEX PO SCH ×2 (08:16→20:28)
[2020-03-29] MEDS: COREG PO SCH ×2 (08:16→16:19)
[2020-03-29] MEDS: BRIMONIDINE TARTRATE 0.2% OPTH SOL EACHEYE SCH ×2 (08:16→20:28)
[2020-03-29] MEDS: FLORASTOR PO SCH ×2 (08:16→20:28)
[2020-03-29] MEDS: XANAX PO SCH ×3 (08:16→20:28)
[2020-03-29] MEDS: ULTRAM PO SCH ×2 (08:17→20:28)
[2020-03-29] MEDS: K-DUR PO SCH (08:17)
[2020-03-29] MEDS: FERROUS SULFATE PO SCH (08:17)
[2020-03-29] MEDS: MERREM 1 GM/50 ML NACL 1 GM/50 ML BAG IV SCH (08:18)
[2020-03-29] MEDS: COUMADIN PO SCH (16:19)
[2020-03-29] MEDS: PHENERGAN WITH CODEINE 6.25/10 MG/5 ML PO PRN (21:58)
[2020-03-30] MEDS: VENTOLIN HFA (PER PUFF-WITH SPACER) IH SCH ×4 (04:50→22:05)
[2020-03-30] MEDS: ATROVENT HFA INHALER (PER PUFF-WITH SPACER) IH SCH ×4 (04:50→22:03)
[2020-03-30] MEDS: LASIX TAB PO SCH (05:38)
[2020-03-30] MEDS: PROTONIX PO SCH ×2 (05:38→16:55)
[2020-03-30 06:14] LABS: BASOPHILS % (AUTO) 0.1 % (0.0-3.0); HEMATOCRIT 37.5 % (37.0-47.0); HEMOGLOBIN 12.1 g/dl (12.0-16.0); IMMATURE GRANULOCYTE # (AUTO) 0.2 (0.0-1.0); IMMATURE GRANULOCYTE % (AUTO) 1.2 % (0.0-5.0); LYMPHOCYTES % (AUTO) 6.2 (10.0-50.0); MEAN CORPUSCULAR HEMOGLOBIN 28.4 pg (27.0-31.0); MEAN CORPUSCULAR HGB CONC 32.3 (31.8-35.4); MONOCYTES % (AUTO) 6.2 (0-10); NEUTROPHILS # (AUTO) 13.3 K/ul (2.0-6.9); NEUTROPHILS % (AUTO) 86.3 % (42.2-75.2); PLATELET COUNT 277 10^3/uL (140-440); RDW COEFFICIENT OF VARIATION 14.7 % (11.6-14.8); RED BLOOD COUNT 4.26 10^6/ul (4.20-5.40); WHITE BLOOD COUNT 15.38 K/ul (4.6-10.2)
[2020-03-30 06:24] LABS: PROTHROMBIN TIME 16.2 SEC (9.3-11.0)
[2020-03-30 06:26] LABS: ALANINE AMINOTRANSFERASE 22.3 U/L (0-35); ALBUMIN 3.76 g/dL (3.5-5.0); ALKALINE PHOSPHATASE 171.4 U/L (53-141); ASPARTATE AMINO TRANSFERASE 28.6 U/L (14-36); BILIRUBIN,TOTAL 0.39 mg/dL (0.2-1.3); BLOOD UREA NITROGEN 27.5 mg/dL (7-17); CALCIUM 10.11 mg/dL (8.4-10.2); CARBON DIOXIDE 34.7 mmol/L (22-30.0); CHLORIDE 94.8 mmol/L (98-107); CREATININE 0.87 mg/dL (0.60-1.30); GLUCOSE 89.8 mg/dL (74-106); POTASSIUM 3.76 mmol/L (3.5-5.1); SODIUM 134.9 mmol/L (134.5-145); TOTAL PROTEIN 7.21 g/dL (6.3-8.2)
[2020-03-30] MEDS: SYMBICORT 160-4.5 MCG INHALER IH SCH ×2 (08:59→20:13)
[2020-03-30] MEDS: BRIMONIDINE TARTRATE 0.2% OPTH SOL EACHEYE SCH ×2 (08:59→20:13)
[2020-03-30] MEDS: FLORASTOR PO SCH ×2 (09:00→20:13)
[2020-03-30] MEDS ORDERED: DECADRON IM SCH (09:00)
[2020-03-30] MEDS: COREG PO SCH ×2 (09:00→16:56)
[2020-03-30] MEDS: MUCINEX PO SCH ×2 (09:00→20:13)
[2020-03-30] MEDS: PREDNISONE PO SCH ×2 (09:00→16:56)
[2020-03-30] MEDS: FERROUS SULFATE PO SCH (09:00)
[2020-03-30] MEDS: ULTRAM PO SCH ×2 (09:00→20:12)
[2020-03-30] MEDS: XANAX PO SCH ×3 (09:01→20:12)
[2020-03-30] MEDS: K-DUR PO SCH (09:01)
[2020-03-30] MEDS: CLARITIN PO SCH (09:01)
--- NOTE | 2020-03-30 10:16 | PCM.PROG ---
Attending Provider: ATTENDING PROVIDER: Dr. RAISA YO This patient is seen with Zuly Henry, Nurse Practitioner. DATE OF SERVICE: 03/30/20 SUBJECTIVE: This 79 year old /WHITE F was hospitalized 03/25/20. The patient is up and about on her own. Feeling less short of breath. Eating fairly well. No fever. REVIEW OF SYSTEMS: CONSTITUTIONAL: No night sweats. No fatigue, malaise, lethargy. No fever or chills. HEENT: Eyes: No visual changes. No eye pain. No eye discharge. ENT: No runny nose. No epistaxis. No sinus pain. No odynophagia. No congestion. RESPIRATORY: Cough, no congestion. No hemoptysis. Shortness of breath. CARDIOVASCULAR: No angina symptoms. No CHF symptoms. No atypical chest pain for CAD. No palpitations. No orthopnea.. GASTROINTESTINAL: No abdominal pain. No nausea or vomiting. No diarrhea or constipation. No hematemesis. No hematochezia. GENITOURINARY: No urgency. No frequency. No dysuria. No hematuria. No obstructive symptoms. No discharge. No pain. No significant abnormal bleeding. MUSCULOSKELETAL: No musculoskeletal pain; no joint swelling. NEUROLOGICAL: Awake, alert, oriented to time, place and person. No headache. No neck pain. No syncope. No seizures. No dizziness. PSYCHIATRIC: Not anxious. No depression. No suicidal thoughts. No homicidal thoughts. SKIN: No rash. No lesions. No wounds. ENDOCRINE: No unexplained weight loss. No weight gain. HEMATOLOGIC/LYMPHATIC: No anemia. No purpura. No petechiae. No prolonged or excessive bleeding. No palpable lymph nodes. PHYSICAL EXAMINATION: GENERAL: The patient is awake, alert and oriented, lying in bed in no distress. VITAL SIGNS: Temperature 97.9 F, Pulse 79, Respiratory Rate 16, BP 151/84, Pulse Ox 98% HEENT: Head normocephalic, atraumatic. Eyes: Extraocular muscles are intact. Pupils are equal, round and reactive to light and accommodation. Ears: No lesions. Nose appeared normal. Throat: No exudate or erythema. NECK: Supple. No JVD, no carotid bruit. No lymphadenopathy or thyromegaly. LUNGS: Diminished breath sounds. Clear to auscultation. Percussion note normal. Chest symmetrical. HEART: S1, S2, no S3. No murmurs. No cyanosis or clubbing. No ascites. Pulses: Dorsalis pedis and posterior tibial pulses +1 to +2 both sides. ABDOMEN: Soft. Non-tender. Bowel sounds active. No CVA tenderness. No mass felt. EXTREMITIES: No edema. Full range of motion of all extremities, equal. NEUROLOGIC: No focal deficit. Cranial nerves II through XII are grossly intact. No headache, no double vision or headache. SKIN: Not dry. Intact. Turgor-normal. LYMPHATIC: No palpable lymph nodes/no lymphedema. MUSCULOSKELETAL: Normal joints with no swelling. Muscle tone is normal. LAB REVIEW: 03/30/20 06:07 03/30/20 06:07 03/30/20 06:07: Sodium 134.9, Potassium 3.76, Chloride 94.8 L, Carbon Dioxide 34.7 H, Anion Gap 9.16, BUN 27.5 H, Creatinine 0.87, Estimated GFR (MDRD) 63.00, BUN/Creatinine Ratio 31.60, Glucose 89.8, Calcium 10.11, Total Bilirubin 0.39, AST 28.6, ALT 22.3, Alkaline Phosphatase 171.4 H, Total Protein 7.21, Albumin 3.76, Globulin 3.45, Albumin/Globulin Ratio 1.08 03/30/20 06:07: PT 16.2 H, INR 1.70 03/30/20 06:07: WBC 15.38 H, RBC 4.26, Hgb 12.1, Hct 37.5, MCV 88.0, MCH 28.4, MCHC 32.3, RDW Coeff of Elie 14.7, Plt Count 277, Immature Gran % (Auto) 1.2, Neut % (Auto) 86.3 H, Lymph % (Auto) 6.2 L, [place] % (Auto) 6.2, Eos % (Auto) 0.0, Baso % (Auto) 0.1, Neut # (Auto) 13.3 H, Lymph # (Auto) 1.0, [place] # (Auto) 1.0, Eos # (Auto) 0.0, Baso # (Auto) 0.0, Immature Gran # (Auto) 0.2 ASSESSMENT: Please see below. 1. Persistent bilateral pneumonia 2. Shortness of breath 3. Severe COPD 4. Generalized weakness PLAN: 1. Discontinue Decadron 2. Prednisone 20mg BID 3. Appointment with Dr. Peterson 04/05/2020 Plan and coordination of the patient's care discussed in the presence of Linoleum Layer Apprentice and nurse. SCRIBED BY: Luis REDD scribed while in presence of service performed by Dr. Yo/Zuly Henry APRN on 03/30/20 ([id number])
--- NOTE | 2020-03-30 11:02 | PN ---
DATE OF SERVICE: 03/29/2020 SUBJECTIVE: 79 year old white female hospitalized with COPD, acute exacerbation. The patient has been on Merrem. The patient's sputum cultures showed that the patient was resistant to practically all antibiotics except for aminoglycosides. I think that this patient has colonization of human tissues with bronchiectasis and atelectasis. Also the oral cavity has been colonized. The patient has been afebrile. It is chronic. The patient is chronic and needs to discontinue all the antibiotics for now. Discuss with pharmacist. REVIEW OF SYSTEMS: CONSTITUTIONAL: No night sweats. No fatigue, malaise, lethargy. No fever or chills. HEENT: Eyes: No visual changes. No eye pain. No eye discharge. ENT: No runny nose. No epistaxis. No sinus pain. No sore throat. No odynophagia. No congestion. RESPIRATORY: No cough, no congestion. No hemoptysis. No shortness of breath. CARDIOVASCULAR: No angina symptoms. No CHF symptoms. No atypical chest pain for CAD. No palpitations. No PND. No orthopnea. GASTROINTESTINAL: No abdominal pain. No nausea or vomiting. No diarrhea or constipation. No hematemesis. No hematochezia. GENITOURINARY: No urgency. No frequency. No dysuria. No hematuria. No obstructive symptoms. No discharge. No pain. No significant abnormal bleeding. MUSCULOSKELETAL: No musculoskeletal pain; no joint swelling. NEUROLOGICAL: No headache. No neck pain. No syncope. No seizures. No dizziness. PSYCHIATRIC: Not anxious. No depression. No suicidal thoughts. No homicidal thoughts. SKIN: No rash. No lesions. No wounds. ENDOCRINE: No unexplained weight loss. No weight gain. HEMATOLOGIC/LYMPHATIC: No anemia. No purpura. No petechiae. No prolonged or excessive bleeding. No palpable lymph nodes. PHYSICAL EXAMINATION: VITAL SIGNS: Temperature 97.1,pulse 80, respiratory rate 18, blood pressure 160/80 and pulse ox 96% on 2 liters. HEENT: Head normocephalic, atraumatic. Eyes: Extraocular muscles are intact. Pupils are equal, round and reactive to light and accommodation. Ears: No lesions. Nose appeared normal. Throat: No exudate or erythema. NECK: Supple. No JVD, no carotid bruit. No lymphadenopathy or thyromegaly. LUNGS: Decreased breath sounds. Mild wheeze. Clear to auscultation. Percussion note normal. Chest symmetrical. HEART: S1, S2, no S3. No murmurs. No cyanosis or clubbing. No ascites. Pulses: Dorsalis pedis and posterior tibial pulses +1 to +2 bilaterally. ABDOMEN: Soft. Nontender. Bowel sounds active. No CVA tenderness. No mass felt. EXTREMITIES: No edema. Full range of motion of all extremities, equal. NEUROLOGIC: No focal deficit. Cranial nerves II through XII are grossly intact. No headache, no double vision or headache. SKIN: Not dry. Intact. Turgor - normal. LYMPHATIC: No palpable lymph nodes/no lymphedema. MUSCULOSKELETAL: Normal joints with no swelling. Muscle tone is normal. LABS: Hgb 10.6, hct 33, WBC 11,000 normal differential, creatinine 0.7, BUN 27, potassium 3.8 ASSESSMENT: 1. 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 Improve the pulmonary toilet 2. Discontinue all the antibiotics for now 3. Continue NEBS treatments 4. Inhalers 5. Steroids TIME SPENT: More than 30 minutes. Plan and coordination of the patient's care discussed in the presence of nurse. ANETA
--- NOTE | 2020-03-30 13:37 | PN ---
DATE OF SERVICE: 03/28/2020 SUBJECTIVE: The patient was seen and examined with the Nurse Practitioner. The patient's condition is improving. She is coughing much less. Appetite seems to be improving. TIME SPENT: More than 30 minutes. Plan and coordination of the patient's care discussed in the presence of nurse. ANETA
--- NOTE | 2020-03-30 14:34 | RS.SLPCNOT ---
Speech Case Note Date of Note: 03/30/20 Title: SWALLOW CONSULT Note: TRANSPORTATION MODELER discussed pt's swallow consult with RN, Bela. She reported pt is not verbalizing any difficulty with swallowing medications. Pt has not been reported to have difficulty with swallowing recommended diet and liquid texture. Pt does have elevated WBC, which is improving; pt is afebrile. CXR revealed possible pneumonia or atelectasis and pt has recurrent pneumonia d/t severity of COPD. No further assessment warranted at this time. Nursing/MD to order Bedside swallow evaluation if pt's symptoms do not improve in order to rule-out possible aspiration pneumonia. Thank you for this referral.
[2020-03-30] MEDS: COUMADIN PO SCH (16:56)
[2020-03-30] MEDS: PHENERGAN WITH CODEINE 6.25/10 MG/5 ML PO PRN (22:18)
[2020-03-31] MEDS: ATROVENT HFA INHALER (PER PUFF-WITH SPACER) IH SCH ×2 (04:55→10:06)
[2020-03-31] MEDS: VENTOLIN HFA (PER PUFF-WITH SPACER) IH SCH ×2 (04:55→10:04)
[2020-03-31 05:40] LABS: BASOPHILS % (AUTO) 0.3 % (0.0-3.0); HEMATOCRIT 32.7 % (37.0-47.0); HEMOGLOBIN 10.6 g/dl (12.0-16.0); IMMATURE GRANULOCYTE # (AUTO) 0.3 (0.0-1.0); LYMPHOCYTES # (AUTO) 0.9 K/uL (0.60-3.4); LYMPHOCYTES % (AUTO) 5.9 (10.0-50.0); MEAN CORPUSCULAR HEMOGLOBIN 28.4 pg (27.0-31.0); MEAN CORPUSCULAR HGB CONC 32.4 (31.8-35.4); MEAN CORPUSCULAR VOLUME 87.7 fl (81.0-99.0); MONOCYTES # (AUTO) 0.7 K/uL (0.4-2.0); NEUTROPHILS # (AUTO) 12.6 K/ul (2.0-6.9); NEUTROPHILS % (AUTO) 86.8 % (42.2-75.2); PLATELET COUNT 246 10^3/uL (140-440); RDW COEFFICIENT OF VARIATION 14.8 % (11.6-14.8); RED BLOOD COUNT 3.73 10^6/ul (4.20-5.40); WHITE BLOOD COUNT 14.48 K/ul (4.6-10.2)
[2020-03-31 05:46] LABS: ALANINE AMINOTRANSFERASE 32.9 U/L (0-35); ALBUMIN 3.09 g/dL (3.5-5.0); ALKALINE PHOSPHATASE 153.4 U/L (53-141); ASPARTATE AMINO TRANSFERASE 37.7 U/L (14-36); BILIRUBIN,TOTAL 0.35 mg/dL (0.2-1.3); BLOOD UREA NITROGEN 33.5 mg/dL (7-17); CALCIUM 9.69 mg/dL (8.4-10.2); CARBON DIOXIDE 33.4 mmol/L (22-30.0); CHLORIDE 97.2 mmol/L (98-107); CREATININE 0.66 mg/dL (0.60-1.30); GLUCOSE 110.4 mg/dL (74-106); POTASSIUM 4.49 mmol/L (3.5-5.1); SODIUM 132.7 mmol/L (134.5-145); TOTAL PROTEIN 6.12 g/dL (6.3-8.2)
[2020-03-31 05:48] VITALS: BP 144/74; TEMP 97.7
[2020-03-31 06:02] LABS: PROTHROMBIN TIME 17.6 SEC (9.3-11.0)
[2020-03-31] MEDS: PROTONIX PO SCH (06:11)
[2020-03-31] MEDS: LASIX TAB PO SCH (06:11)
[2020-03-31] MEDS: PREDNISONE PO SCH (09:21)
[2020-03-31] MEDS: XANAX PO SCH (09:21)
[2020-03-31] MEDS: MUCINEX PO SCH (09:21)
[2020-03-31] MEDS: FLORASTOR PO SCH (09:21)
[2020-03-31] MEDS: CLARITIN PO SCH (09:21)
[2020-03-31] MEDS: ULTRAM PO SCH (09:21)
[2020-03-31] MEDS: K-DUR PO SCH (09:21)
[2020-03-31] MEDS: COREG PO SCH (09:21)
[2020-03-31] MEDS: BRIMONIDINE TARTRATE 0.2% OPTH SOL EACHEYE SCH (09:22)
[2020-03-31] MEDS: SYMBICORT 160-4.5 MCG INHALER IH SCH (09:22)
[2020-03-31] MEDS: FERROUS SULFATE PO SCH (09:22)
--- NOTE | 2020-03-31 09:47 | DS ---
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 OLIVAS ANXIETY GERD OSTEOPENIA DEGENERATIVE DISC DISEASE HISTORY OF TOBACCO USE, STOPPED 10 YRS AGO POLYARTHRITIS RECURRENT GOUT COMPRESSION FRACTURE, T9 (STABLE) SURGICAL HISTORY: HYSTERECTOMY APPENDECTOMY LEFT CATARACT LAST VITALS: Temp Pulse Resp BP Pulse Ox 97.7 F 72 20 144/74 H 96 03/31/20 05:46 03/31/20 05:46 03/31/20 05:46 03/31/20 05:46 03/31/20 05:46 DISCHARGE INSTRUCTIONS: DISCHARGE HOME TODAY: MARCH 31, 2020 [facility] NURSING VISITS (ASSESSMENT, VITAL SIGNS, INCLUDING PULSE OXIMETRY. [facility] TO CHECK PT/INR WEEKLY. CONTINUE OXYGEN AT 2 - 3 LITERS PER NASAL CANNULA. CONTINUE DUONEB TID. CONTINUE PULMICORT NEB BID. PREDNISONE TAPERING DOSES. MAY TAKE 1 EXTRA XANAX DAILY IF NEEDED FOR ANXIETY. AN APPOINTMENT IS SCHEDULED WITH DR. RASCON/JAZZMINE CHEW APRN/JANE LYONS APRN ON SATURDAY, APRIL 04, 2020 @ 1130. AN APPOINTMENT IS SCHEDULED WITH DR. OLIVAS, [facility] ON March AT 9:30. TAKE HOSPITAL CD WITH YOU TO APPOINTMENT. CODE STATUS: DO NOT RESUSCITATE. TAKE THESE MEDICATIONS AT HOME: Acetaminophen (Acetaminophen 325 Mg Tablet) 650 mg PO Q4HR PRN PRN Reason: pain/fever Alprazolam (Alprazolam 0.25 Mg Tablet) 0.25 mg PO TID [facility] Last Admin: 03/30/20 20:12 Dose: 0.25 mg Documented by: Brimonidine Tartrate (Brimonidine Tartrate 0.2% 5 Ml Btl) 1 drop EACHEYE BID [facility] Last Admin: 03/30/20 20:13 Dose: 1 drop Documented by: Budesonide/Formoterol Fumarate ( PULMICORT) 0.5 MG NEB BID Carvedilol (Carvedilol 3.125 Mg Tablet) 3.125 mg PO BIDWM [facility] Last Admin: 03/30/20 16:56 Dose: 3.125 mg Documented by: Ferrous Sulfate (Ferrous Sulfate 324 Mg Tablet.Dr) 324 mg PO DAILY [facility] Last Admin: 03/30/20 09:00 Dose: 324 mg Documented by: Furosemide (Furosemide 20 Mg Tablet) 20 mg PO QDAC [facility] Last Admin: 03/31/20 06:11 Dose: 20 mg Documented by: Guaifenesin (Guaifenesin 600 Mg Tablet.Er) 600 mg PO Q12HR [facility] Last Admin: 03/30/20 20:13 Dose: 600 mg Documented by: Ipratropium [place] Albuterol Sulfate NEBULIZER TID Loratadine (Loratadine 10 Mg Tablet) 10 mg PO DAILY [facility] Last Admin: 03/30/20 09:01 Dose: 10 mg Documented by: Pantoprazole Sodium (Pantoprazole Sodium 40 Mg Tablet.) 40 mg PO BIDAC [facility] Last Admin: 03/31/20 06:11 Dose: 40 mg Documented by: Potassium Chloride (Potassium Chloride 20 Meq Tab) 10 meq PO DAILYWM [facility] Last Admin: 03/30/20 09:01 Dose: 20 meq Documented by: Prednisone (Prednisone 20 Mg Tablet) 20 mg PO BIDWM [facility] X 5 DAYS 10 MG PO BID X 5 DAYS 10 MG PO DAILY X 5 DAYS THEN CONTINUE 5 MG PO DAILY Last Admin: 03/30/20 16:56 Dose: 20 mg Documented by: Promethazine HCl/Codeine (Promethazine/Codeine Syrup 6.25/10 Mg/5 Ml Disp.Syringe) 10 ml PO Q6H PRN PRN Reason: Cough Last Admin: 03/30/20 22:18 Dose: 10 ml Documented by: Saccharomyces Boulardii (Saccharomyces Boulardii 250 Mg Capsule) 250 mg PO BID [facility] Last Admin: 03/30/20 20:13 Dose: 250 mg Documented by: Tramadol HCl (Tramadol Hcl 50 Mg Tablet) 50 mg PO BID [facility] Last Admin: 03/30/20 20:12 Dose: 50 mg Documented by: Warfarin Sodium (Warfarin Sodium 3 Mg Tablet) 3 mg PO QPM [facility] Last Admin: 03/30/20 16:56 Dose: 3 mg Documented by: ALLERGIES: ciprofloxacin [From Cipro] Adverse Reaction (Intermediate, Verified 03/25/20 13:38) acetylcysteine [From Mucomyst] Adverse Reaction (Verified 03/25/20 13:38) hydrocodone Adverse Reaction (Verified 03/25/20 13:38) Abdominal Pain GI cocktail Adverse Reaction (Uncoded 02/28/20 20:24) Mucomyst Adverse Reaction (Uncoded 02/28/20 20:24) Head pressure DISCONTINUED MEDICATIONS: ZITHROMAX NEW PRESCRIPTIONS: POTASSIUM 10 MEQ PO DAILY PREDNISONE 20 MG PO BID X 5 DAYS 10 MG PO BID X 5 DAYS 10 MG PO DAILY X 5 DAYS THEN CONTINUE 5 MG PO DAILY SMOKING: NON- APPLICABLE DISEASE SPECIFIC EDUCATION: PNEUMONIA SEVERE COPD BLEEDING PRECAUTIONS COVID 19 LAB REVIEW: 03/31/20 05:10 03/31/20 05:10 03/31/20 05:10: Sodium 132.7 L, Potassium 4.49, Chloride 97.2 L, Carbon Dioxide 33.4 H, Anion Gap 6.59, BUN 33.5 H, Creatinine 0.66, Estimated GFR (MDRD) 87.00, BUN/Creatinine Ratio 50.75, Glucose 110.4 H, Calcium 9.69, Total Bilirubin 0.35, AST 37.7 H, ALT 32.9, Alkaline Phosphatase 153.4 H, Total Protein 6.12 L, Albumin 3.09 L, Globulin 3.03, Albumin/Globulin Ratio 1.01 03/31/20 05:10: PT 17.6 H, INR 1.65 03/31/20 05:10: WBC 14.48 H, RBC 3.73 L, Hgb 10.6 L, Hct 32.7 L, MCV 87.7, MCH 28.4, MCHC 32.4, RDW Coeff of Elie 14.8, Plt Count 246, Immature Gran % (Auto) 2.0, Neut % (Auto) 86.8 H, Lymph % (Auto) 5.9 L, [place] % (Auto) 5.0, Eos % (Auto) 0.0, Baso % (Auto) 0.3, Neut # (Auto) 12.6 H, Lymph # (Auto) 0.9, [place] # (Auto) 0.7, Eos # (Auto) 0.0, Baso # (Auto) 0.0, Immature Gran # (Auto) 0.3 DIET: REGULAR TOLERATED ACTIVITY: GRADUALLY RESUME TOLERATED WITH ROLLATOR. FREQUENT REST PERIODS BUT DO GET UP AND WALK IN HOME FREQUENTLY . STAY HOME EXCEPT FOR MEDICAL APPOINTMENTS USE OXYGEN FOR ALL ACTIVITY HOSPITAL COURSE: 79 year old white female was hospitalized with worsening COPD with bronchitis. and pneumonia. She was initially treated with Ertapenem than changed to Merrem, both were discontinued. Sputum was resistant to all antibiotics except for aminoglycosides. It was decided that the patient has colonized with the patient being afebrile. Pulmonary toilet is the way to go with her pneumonia unless she starts running a fever with chills. Appetite has improved. Cough is less. The patient is going to be discharge on usual tapering dose of Prednisone. Side effects of Prednisone discussed with patient including avascular necrosis of femoral heads. TIME SPENT: More than 60 minutes. MTDD
--- NOTE | 2020-03-31 09:58 | PCM.PROG ---
Attending Provider: ATTENDING PROVIDER: Dr. RAISA RASCON DATE OF SERVICE: 03/31/20 SUBJECTIVE: This 79 year old /WHITE F was hospitalized 03/25/20 with COPD and Pneumonitis. The patient has pseudomonas colonization, initially she was on antibiotics which was discontinued. Sputum from the hospital grew pseudomonas resistant to all antibiotics except for aminoglycosides. The patient's condition has improved. The patient has colonized of pseudomonas and needs good pulmonary toilet. Antibiotics may not be any use. REVIEW OF SYSTEMS: CONSTITUTIONAL: No night sweats. No fatigue, malaise, lethargy. No fever or chills. HEENT: Eyes: No visual changes. No eye pain. No eye discharge. ENT: No runny nose. No epistaxis. No sinus pain. No odynophagia. No congestion. RESPIRATORY: Coughing less, no congestion. No hemoptysis. No shortness of breath. CARDIOVASCULAR: No angina symptoms. No CHF symptoms. No atypical chest pain for CAD. No palpitations. No orthopnea.. GASTROINTESTINAL: No abdominal pain. No nausea or vomiting. No diarrhea or constipation. No hematemesis. No hematochezia. Appetite improved. GENITOURINARY: No urgency. No frequency. No dysuria. No hematuria. No obstructive symptoms. No discharge. No pain. No significant abnormal bleeding. MUSCULOSKELETAL: No musculoskeletal pain; no joint swelling. NEUROLOGICAL: Awake, alert, oriented to time, place and person. No headache. No neck pain. No syncope. No seizures. No dizziness. PSYCHIATRIC: Not anxious. No depression. No suicidal thoughts. No homicidal thoughts. SKIN: No rash. No lesions. No wounds. ENDOCRINE: No unexplained weight loss. No weight gain. HEMATOLOGIC/LYMPHATIC: No anemia. No purpura. No petechiae. No prolonged or excessive bleeding. No palpable lymph nodes. PHYSICAL EXAMINATION: GENERAL: The patient is awake, alert and oriented, sitting in bed in no distress. VITAL SIGNS: Temperature 97.7 F, Pulse 72, Respiratory Rate 20, BP 144/74, Pulse Ox 96% HEENT: Head normocephalic, atraumatic. Eyes: Extraocular muscles are intact. Pupils are equal, round and reactive to light and accommodation. Ears: No lesions. Nose appeared normal. Throat: No exudate or erythema. NECK: Supple. No JVD, no carotid bruit. No lymphadenopathy or thyromegaly. LUNGS: Decreased breath sounds. Clear to auscultation. Percussion note normal. Chest symmetrical. HEART: S1, S2, no S3. No murmurs. No cyanosis or clubbing. No ascites. Pulses: Dorsalis pedis and posterior tibial pulses +1 to +2 both sides. ABDOMEN: Soft. Non-tender. Bowel sounds active. No CVA tenderness. No mass felt. EXTREMITIES: No edema. Full range of motion of all extremities, equal. NEUROLOGIC: No focal deficit. Cranial nerves II through XII are grossly intact. No headache, no double vision or headache. SKIN: Warm and dry. Intact. Turgor-normal. LYMPHATIC: No palpable lymph nodes/no lymphedema. MUSCULOSKELETAL: Normal joints with no swelling. Muscle tone is normal. LAB REVIEW: 03/31/20 05:10 03/31/20 05:10 03/31/20 05:10: Sodium 132.7 L, Potassium 4.49, Chloride 97.2 L, Carbon Dioxide 33.4 H, Anion Gap 6.59, BUN 33.5 H, Creatinine 0.66, Estimated GFR (MDRD) 87.00, BUN/Creatinine Ratio 50.75, Glucose 110.4 H, Calcium 9.69, Total Bilirubin 0.35, AST 37.7 H, ALT 32.9, Alkaline Phosphatase 153.4 H, Total Protein 6.12 L, Albumin 3.09 L, Globulin 3.03, Albumin/Globulin Ratio 1.01 03/31/20 05:10: PT 17.6 H, INR 1.65 03/31/20 05:10: WBC 14.48 H, RBC 3.73 L, Hgb 10.6 L, Hct 32.7 L, MCV 87.7, MCH 28.4, MCHC 32.4, RDW Coeff of Elie 14.8, Plt Count 246, Immature Gran % (Auto) 2.0, Neut % (Auto) 86.8 H, Lymph % (Auto) 5.9 L, [place] % (Auto) 5.0, Eos % (Auto) 0.0, Baso % (Auto) 0.3, Neut # (Auto) 12.6 H, Lymph # (Auto) 0.9, [place] # (Auto) 0.7, Eos # (Auto) 0.0, Baso # (Auto) 0.0, Immature Gran # (Auto) 0.3 ASSESSMENT: Please see below. 1. Pneumonia pseudomonas likely from colonization with chronic lung disease with chronic bronchitis. PLAN: 1. Discharge home on tapering dose of steroids 3. No antibiotics. 3. Continue NEBS at home with oxygen 4. Declined pulmonary rehab Plan and coordination of the patient's care discussed in the presence of Safety Tech and nurse. PROGNOSIS: Poor SCRIBED BY: Luis REDD scribed while in presence of service performed by Dr. RAISA RASCON on 03/31/20 ([id number])
--- NOTE | 2020-03-31 10:18 | CM.DICTOOL ---
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 BRENDON GALVEZ GERD OSTEOPENIA DEGENERATIVE DISC DISEASE HISTORY OF TOBACCO USE, STOPPED 10 YRS AGO POLYARTHRITIS RECURRENT GOUT COMPRESSION FRACTURE, T9 (STABLE) SURGICAL HISTORY: HYSTERECTOMY APPENDECTOMY LEFT CATARACT LAST VITALS Temp Pulse Resp BP Pulse Ox 97.7 F 72 20 144/74 H 96 03/31/20 05:46 03/31/20 05:46 03/31/20 05:46 03/31/20 05:46 03/31/20 05:46 TAKE THESE MEDICATIONS AT HOME Acetaminophen (Acetaminophen 325 Mg Tablet) 650 mg PO Q4HR PRN PRN Reason: pain/fever Alprazolam (Alprazolam 0.25 Mg Tablet) 0.25 mg PO TID [facility] Last Admin: 03/30/20 20:12 Dose: 0.25 mg Documented by: Brimonidine Tartrate (Brimonidine Tartrate 0.2% 5 Ml Btl) 1 drop EACHEYE BID [facility] Last Admin: 03/30/20 20:13 Dose: 1 drop Documented by: Budesonide/Formoterol Fumarate ( PULMICORT) 0.5 MG NEB BID Carvedilol (Carvedilol 3.125 Mg Tablet) 3.125 mg PO BIDWM [facility] Last Admin: 03/30/20 16:56 Dose: 3.125 mg Documented by: Ferrous Sulfate (Ferrous Sulfate 324 Mg Tablet.) 324 mg PO DAILY [facility] Last Admin: 03/30/20 09:00 Dose: 324 mg Documented by: Furosemide (Furosemide 20 Mg Tablet) 20 mg PO QDAC [facility] Last Admin: 03/31/20 06:11 Dose: 20 mg Documented by: Guaifenesin (Guaifenesin 600 Mg Tablet.Er) 600 mg PO Q12HR [facility] Last Admin: 03/30/20 20:13 Dose: 600 mg Documented by: Ipratropium [place] Albuterol Sulfate NEBULIZER TID Loratadine (Loratadine 10 Mg Tablet) 10 mg PO DAILY [facility] Last Admin: 03/30/20 09:01 Dose: 10 mg Documented by: Pantoprazole Sodium (Pantoprazole Sodium 40 Mg Tablet.Dr) 40 mg PO BIDAC [facility] Last Admin: 03/31/20 06:11 Dose: 40 mg Documented by: Potassium Chloride (Potassium Chloride 20 Meq Tab) 10 meq PO DAILYWM [facility] Last Admin: 03/30/20 09:01 Dose: 20 meq Documented by: Prednisone (Prednisone 20 Mg Tablet) 20 mg PO BIDWM [facility] X 5 DAYS 10 MG PO BID X 5 DAYS 10 MG PO DAILY X 5 DAYS THEN CONTINUE 5 MG PO DAILY Last Admin: 03/30/20 16:56 Dose: 20 mg Documented by: Promethazine HCl/Codeine (Promethazine/Codeine Syrup 6.25/10 Mg/5 Ml Disp.Syringe) 10 ml PO Q6H PRN PRN Reason: Cough Last Admin: 03/30/20 22:18 Dose: 10 ml Documented by: Saccharomyces Boulardii (Saccharomyces Boulardii 250 Mg Capsule) 250 mg PO BID [facility] Last Admin: 03/30/20 20:13 Dose: 250 mg Documented by: Tramadol HCl (Tramadol Hcl 50 Mg Tablet) 50 mg PO BID [facility] Last Admin: 03/30/20 20:12 Dose: 50 mg Documented by: Warfarin Sodium (Warfarin Sodium 3 Mg Tablet) 3 mg PO QPM [facility] Last Admin: 03/30/20 16:56 Dose: 3 mg Documented by: ALLERGIES ciprofloxacin [From Cipro] Adverse Reaction (Intermediate, Verified 03/25/20 13:38) acetylcysteine [From Mucomyst] Adverse Reaction (Verified 03/25/20 13:38) hydrocodone Adverse Reaction (Verified 03/25/20 13:38) Abdominal Pain gi cocktail Adverse Reaction (Uncoded 02/28/20 20:24) mucomyst Adverse Reaction (Uncoded 02/28/20 20:24) Head pressure DISCONTINUED MEDICATIONS ZITHROMAX NEW PRESCRIPTIONS: POTASSIUM 10 MEQ PO DAILY PREDNISONE 20 MG PO BID X 5 DAYS 10 MG PO BID X 5 DAYS 10 MG PO DAILY X 5 DAYS THEN CONTINUE 5 MG PO DAILY SMOKING: NON- APPLICABLE DISEASE SPECIFIC EDUCATION: PNEUMONIA SEVERE COPD BLEEDING PRECAUTIONS COVID 19 LAB REVIEW: 03/31/20 05:10 03/31/20 05:10 03/31/20 05:10: Sodium 132.7 L, Potassium 4.49, Chloride 97.2 L, Carbon Dioxide 33.4 H, Anion Gap 6.59, BUN 33.5 H, Creatinine 0.66, Estimated GFR (MDRD) 87.00, BUN/Creatinine Ratio 50.75, Glucose 110.4 H, Calcium 9.69, Total Bilirubin 0.35, AST 37.7 H, ALT 32.9, Alkaline Phosphatase 153.4 H, Total Protein 6.12 L, Albumin 3.09 L, Globulin 3.03, Albumin/Globulin Ratio 1.01 03/31/20 05:10: PT 17.6 H, INR 1.65 03/31/20 05:10: WBC 14.48 H, RBC 3.73 L, Hgb 10.6 L, Hct 32.7 L, MCV 87.7, MCH 28.4, MCHC 32.4, RDW Coeff of Eile 14.8, Plt Count 246, Immature Gran % (Auto) 2.0, Neut % (Auto) 86.8 H, Lymph % (Auto) 5.9 L, [place] % (Auto) 5.0, Eos % (Auto) 0.0, Baso % (Auto) 0.3, Neut # (Auto) 12.6 H, Lymph # (Auto) 0.9, [place] # (Auto) 0.7, Eos # (Auto) 0.0, Baso # (Auto) 0.0, Immature Gran # (Auto) 0.3 PLAN: DISCHARGE HOME TODAY: MARCH 31, 2020 HOME WITH [facility] SN DIET: REGULAR TOLERATED ACTIVITY: GRADUALLY RESUME TOLERATED WITH ROLLATOR. FREQUENT REST PERIODS BUT DO GET UP AND WALK IN HOME FREQUENTLY . STAY HOME EXCEPT FOR MEDICAL APPOINTMENTS USE OXYGEN FOR ALL ACTIVITY [facility] TO RESUME: NURSING VISITS (ASSESSMENT, VITAL SIGNS, INCLUDING PULSE OXIMETRY [facility] TO CHECK PT/INR WEEKLY CONTINUE OXYGEN AT 2 - 3 LITERS PER NASAL CANNULA CONTINUE DUONEB TID CONTINUE PULMICORT NEB BID PREDNISONE TAPERING DOSES MAY TAKE 1 EXTRA XANAX DAILY IF NEEDED FOR ANXIETY AN APPOINTMENT IS SCHEDULED WITH DR. RASCON/JAZZMINE CHEW APRN/JANE LYONS APRN ON SATURDAY, APRIL 04, 2020 @ 1130 AN APPOINTMENT IS SCHEDULED WITH DR. OLIVAS, [facility] ON March AT 9:30. TAKE HOSPITAL CD WITH YOU TO APPOINTMENT CODE STATUS: DO NOT RESUSCITATE MRS. STEINBERG REMAINS ALERT AND ORIENTED X 4. SHE IS PLEASANT AND TALKATIVE. SHE USES OXYGEN AT 2 L/M PER N/C AT REST AND 3 L/M WITH ACTIVITY. HER BREATHING HAS BEEN STABLE. LUNGS COURSE AND DIMINISHED WITH YELLOW AND GREEN SPUTUM. EXERTIONAL DYSPNEA BUT RECOVERS WELL. SKIN WARM AND DRY AND INTACT EXCEPT SCATTERED BRUISING TO ARMS AND A LARGE BRUISE TO ANTERIOR RT MID LEG THAT HAS NOT GOT ANY WORSE. HER FLUID AND NUTRITIONAL INTAKE IS GOOD. SHE IS CONTINENT OF BOWEL AND BLADDER. LAST BM 03/30. 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 AND DTR ASSIST WHEN NEEDED. SHE HAS ACCEPTED ASSIST OF A SN WITH [facility], HOWEVER HAS REFUSED THERAPY AND HOMEMAKERS IN THE HOME. ____ MD JAZZMINE SMILEY APRN ALYCE HANNAN, APRN
--- NOTE | 2020-03-31 10:36 | PN ---
03/25/2020:Level 5 03/26/2020: Intermediate 03/27/2020: Intermediate 03/28/2020: Intermediate 03/29/2020: Intermediate 03/30/2020: Intermediate 03/31/2020: D as in discharge MTDD
--- NOTE | 2020-04-05 11:43 | PN ---
DATE OF SERVICE: 03/27/20 SUBJECTIVE: The patient was seen and examined with the nurse practitioner. She is being checked for the possibility of Pseudomonas infection. Merrem is being used as antibiotic. TIME SPENT: More than 30 minutes. Plan and coordination of the patient's care discussed in the presence of nurse. ANETA
--- NOTE | 2020-04-05 11:52 | PN ---
DATE OF SERVICE: 03/30/20 SUBJECTIVE: The patient is seen and examined with the nurse practitioner. The patient's condition is improving. She is afebrile. She initially was short of breath on minimal exertion which persists but I think the patient will need pulmonary rehab which she always declined. Nutritonal aspect discussed with the patient. TIME SPENT: More than 30 minutes. Plan and coordination of the patient's care discussed in the presence of nurse. ANETA
== END 2020-03-31 11:15 | disposition home or self-care (01) | DRG 194 ==
LOC: ED 13:27 → MEDSURG A 17:23
PROVIDERS: ADMIT Internal Medicine; ATTEND Internal Medicine
DX: M85.80 Other specified disorders of bone density and structure, unspecified site; I10 Essential (primary) hypertension; R05 Cough; R51.9 Headache, unspecified; J18.9 Pneumonia, unspecified organism; R06.02 Shortness of breath; J84.10 Pulmonary fibrosis, unspecified; E46 Unspecified protein-calorie malnutrition; E87.1 Hypo-osmolality and hyponatremia; R53.1 Weakness; D64.9 Anemia, unspecified; F41.9 Anxiety disorder, unspecified; J96.10 Chronic respiratory failure, unspecified whether with hypoxia or hypercapnia; I48.91 Unspecified atrial fibrillation; R06.2 Wheezing; Z86.711 Personal history of pulmonary embolism; Z79.01 Long term (current) use of anticoagulants; B96.5 Pseudomonas (aeruginosa) (mallei) (pseudomallei) as the cause of diseases classified elsewhere

== ENCOUNTER 2020-04-16 14:27 | Inpatient (IN) ==
[2020-04-16] MEDS ORDERED: TYLENOL PO PRN (17:59)
[2020-04-16 18:25] VITALS: BMI 19.5
[2020-04-16] MEDS ORDERED: LOVENOX SUBCUT SCH (18:30)
[2020-04-16] MEDS ORDERED: ATROVENT HFA INHALER (PER PUFF-WITH SPACER) IH STA (19:44)
[2020-04-16] MEDS ORDERED: VENTOLIN HFA (PER PUFF-WITH SPACER) IH STA (19:44)
[2020-04-16] MEDS ORDERED: VENTOLIN HFA (PER PUFF-WITH SPACER) IH PRN (19:44)
[2020-04-16] MEDS ORDERED: BRIMONIDINE 0.1% OP SCH (21:00)
[2020-04-16] MEDS: MERREM 1 GM/50 ML NACL 1 GM/50 ML BAG IV SCH ×2 (21:11→21:29)
[2020-04-16] MEDS: SODIUM CHLORIDE 1,000 ML IV SCH (21:11)
[2020-04-16] MEDS: PROTONIX PO SCH (21:12)
[2020-04-16] MEDS: MUCINEX PO SCH (21:12)
[2020-04-16] MEDS: FLORASTOR PO SCH (21:12)
[2020-04-16] MEDS: ULTRAM PO SCH (21:12)
[2020-04-16] MEDS: XANAX PO SCH (21:12)
[2020-04-16] MEDS: COUMADIN PO SCH (21:14)
[2020-04-16] MEDS: SOLU-MEDROL 125 MG IVP SCH ×2 (21:25→21:26)
[2020-04-16] MEDS: BRIMONIDINE TARTRATE 0.2% OPTH SOL EACHEYE SCH (21:39)
[2020-04-16] MEDS: PHENERGAN WITH CODEINE 6.25/10 MG/5 ML PO PRN (22:14)
[2020-04-16] MEDS: DOXY-100 100 MG in SODIUM CHLORIDE 100 ML IV SCH (22:14)
[2020-04-16] MEDS: ATROVENT HFA INHALER (PER PUFF-WITH SPACER) IH SCH (23:18)
[2020-04-17 01:27] LABS: RED BLOOD COUNT 4.32 10^6/ul (4.20-5.40)
[2020-04-17 01:28] LABS: BASOPHILS # (AUTO) 0.1 K/uL (0-0.2); BASOPHILS % (AUTO) 0.4 % (0.0-3.0); EOSINOPHILS # (AUTO) 0.2 K/ul (0.0-0.7); EOSINOPHILS % (AUTO) 1.4 % (0.0-7.0); HEMATOCRIT 38.3 % (37.0-47.0); HEMOGLOBIN 12.1 g/dl (12.0-16.0); IMMATURE GRANULOCYTE % (AUTO) 0.3 % (0.0-5.0); LYMPHOCYTES # (AUTO) 0.9 K/uL (0.60-3.4); LYMPHOCYTES % (AUTO) 7.6 (10.0-50.0); MEAN CORPUSCULAR HGB CONC 31.6 (31.8-35.4); MEAN CORPUSCULAR VOLUME 88.7 fl (81.0-99.0); MONOCYTES # (AUTO) 0.8 K/uL (0.4-2.0); MONOCYTES % (AUTO) 6.4 (0-10); NEUTROPHILS # (AUTO) 10.3 K/ul (2.0-6.9); NEUTROPHILS % (AUTO) 83.9 % (42.2-75.2); PLATELET COUNT 347 10^3/uL (140-440); RDW COEFFICIENT OF VARIATION 15.6 % (11.6-14.8)
[2020-04-17 01:29] LABS: CHLORIDE 93.7 mmol/L (98-107); POTASSIUM 4.54 mmol/L (3.5-5.1)
[2020-04-17 01:30] LABS: ALANINE AMINOTRANSFERASE 20.8 U/L (0-35); ASPARTATE AMINO TRANSFERASE 30.4 U/L (14-36); BILIRUBIN,TOTAL 0.45 mg/dL (0.2-1.3); BLOOD UREA NITROGEN 14.8 mg/dL (7-17); CALCIUM 10.48 mg/dL (8.4-10.2); CREATININE 0.76 mg/dL (0.60-1.30); GLUCOSE 111.7 mg/dL (74-106)
[2020-04-17 01:31] LABS: ALBUMIN 4.07 g/dL (3.5-5.0); ALKALINE PHOSPHATASE 228.6 U/L (53-141); TOTAL PROTEIN 7.88 g/dL (6.3-8.2); TROPONIN I < 0.012 ng/ml (0.0000-0.120)
[2020-04-17] MEDS: ATROVENT HFA INHALER (PER PUFF-WITH SPACER) IH SCH ×4 (04:35→23:20)
[2020-04-17] MEDS: VENTOLIN HFA (PER PUFF-WITH SPACER) IH SCH ×4 (04:35→23:20)
[2020-04-17] MEDS: LASIX TAB PO SCH (06:00)
[2020-04-17] MEDS: PROTONIX PO SCH ×2 (06:00→17:01)
[2020-04-17 06:12] LABS: BASOPHILS % (AUTO) 0.2 % (0.0-3.0); HEMATOCRIT 37.2 % (37.0-47.0); HEMOGLOBIN 11.5 g/dl (12.0-16.0); IMMATURE GRANULOCYTE % (AUTO) 0.6 % (0.0-5.0); LYMPHOCYTES # (AUTO) 0.5 K/uL (0.60-3.4); LYMPHOCYTES % (AUTO) 8.3 (10.0-50.0); MEAN CORPUSCULAR HEMOGLOBIN 27.4 pg (27.0-31.0); MEAN CORPUSCULAR HGB CONC 30.9 (31.8-35.4); MEAN CORPUSCULAR VOLUME 88.8 fl (81.0-99.0); MONOCYTES % (AUTO) 0.6 (0-10); NEUTROPHILS # (AUTO) 5.9 K/ul (2.0-6.9); NEUTROPHILS % (AUTO) 90.3 % (42.2-75.2); PLATELET COUNT 344 10^3/uL (140-440); RDW COEFFICIENT OF VARIATION 15.8 % (11.6-14.8); RED BLOOD COUNT 4.19 10^6/ul (4.20-5.40); WHITE BLOOD COUNT 6.51 K/ul (4.6-10.2)
[2020-04-17 06:16] LABS: ALANINE AMINOTRANSFERASE 18.8 U/L (0-35); ALBUMIN 3.75 g/dL (3.5-5.0); ALKALINE PHOSPHATASE 215.6 U/L (53-141); ASPARTATE AMINO TRANSFERASE 25.8 U/L (14-36); BILIRUBIN,TOTAL 0.34 mg/dL (0.2-1.3); BLOOD UREA NITROGEN 17.3 mg/dL (7-17); CALCIUM 9.91 mg/dL (8.4-10.2); CARBON DIOXIDE 39.9 mmol/L (22-30.0); CHLORIDE 96.7 mmol/L (98-107); CREATININE 0.75 mg/dL (0.60-1.30); GLUCOSE 165.1 mg/dL (74-106); POTASSIUM 3.94 mmol/L (3.5-5.1); SODIUM 137.6 mmol/L (134.5-145); TOTAL PROTEIN 7.46 g/dL (6.3-8.2)
[2020-04-17 06:22] LABS: PROTHROMBIN TIME 19.3 SEC (9.3-11.0)
[2020-04-17] MEDS: MERREM 1 GM/50 ML NACL 1 GM/50 ML BAG IV SCH ×2 (08:39→20:43)
[2020-04-17] MEDS: BRIMONIDINE TARTRATE 0.2% OPTH SOL EACHEYE SCH ×2 (08:40→20:44)
[2020-04-17] MEDS: FERROUS SULFATE PO SCH (08:40)
[2020-04-17] MEDS: MICRO-K CAP PO SCH (08:40)
[2020-04-17] MEDS: XANAX PO SCH ×3 (08:40→20:43)
[2020-04-17] MEDS: ULTRAM PO SCH ×2 (08:41→20:43)
[2020-04-17] MEDS: FLORASTOR PO SCH ×2 (08:41→20:43)
[2020-04-17] MEDS: CLARITIN PO SCH (08:41)
[2020-04-17] MEDS: MUCINEX PO SCH ×2 (08:41→20:43)
[2020-04-17] MEDS ORDERED: NON-FORMULARY MEDICATION (Ferrous Sulfate 325 mg (65 mg iron) Tablet) PO SCH (09:00)
--- NOTE | 2020-04-17 09:54 | PCM.PROG ---
Attending Provider: ATTENDING PROVIDER: Dr. RAISA RASCON This patient is seen with Zuly Henry, Nurse Practitioner. DATE OF SERVICE: 04/17/20 SUBJECTIVE: This 79 year old /WHITE F was hospitalized 04/16/20. The patient is resting comfortably. States shortness of breath has improved. Still with productive cough. No fever. REVIEW OF SYSTEMS: CONSTITUTIONAL: No night sweats. No fatigue, malaise, lethargy. No fever or chills. Weakness. HEENT: Eyes: No visual changes. No eye pain. No eye discharge. ENT: No runny nose. No epistaxis. No sinus pain. No odynophagia. No congestion. RESPIRATORY: Cough, no congestion. No hemoptysis. Shortness of breath. CARDIOVASCULAR: No angina symptoms. No CHF symptoms. No atypical chest pain for CAD. No palpitations. No orthopnea.. GASTROINTESTINAL: No abdominal pain. No nausea or vomiting. No diarrhea or constipation. No hematemesis. No hematochezia. GENITOURINARY: No urgency. No frequency. No dysuria. No hematuria. No obstr uctive symptoms. No discharge. No pain. No significant abnormal bleeding. MUSCULOSKELETAL: No musculoskeletal pain; no joint swelling. NEUROLOGICAL: Awake, alert, oriented to time, place and person. No headache. No neck pain. No syncope. No seizures. No dizziness. PSYCHIATRIC: Not anxious. No depression. No suicidal thoughts. No homicidal thoughts. SKIN: No rash. No lesions. No wounds. ENDOCRINE: No unexplained weight loss. No weight gain. HEMATOLOGIC/LYMPHATIC: No anemia. No purpura. No petechiae. No prolonged or excessive bleeding. No palpable lymph nodes. PHYSICAL EXAMINATION: GENERAL: The patient is awake, alert and oriented, sitting in bed in no distress. VITAL SIGNS: Temperature 97.8 F, Pulse 86, Respiratory Rate 20, BP 130/76, Pulse Ox 94% HEENT: Head normocephalic, atraumatic. Eyes: Extraocular muscles are intact. Pupils are equal, round and reactive to light and accommodation. Ears: No lesions. Nose appeared normal. Throat: No exudate or erythema. NECK: Supple. No JVD, no carotid bruit. No lymphadenopathy or thyromegaly. LUNGS: Severely diminished breath sounds. Upper airway rhonchi. Clear to auscultation. Percussion note normal. Chest symmetrical. HEART: S1, S2, no S3. No murmurs. No cyanosis or clubbing. No ascites. Pulses: Dorsalis pedis and posterior tibial pulses +1 to +2 both sides. ABDOMEN: Soft. Non-tender. Bowel sounds active. No CVA tenderness. No mass felt. EXTREMITIES: No edema. Full range of motion of all extremities, equal. NEUROLOGIC: No focal deficit. Cranial nerves II through XII are grossly intact. No headache, no double vision or headache. SKIN: Not dry. Intact. Turgor-normal. LYMPHATIC: No palpable lymph nodes/no lymphedema. MUSCULOSKELETAL: Normal joints with no swelling. Muscle tone is normal. LAB REVIEW: 04/17/20 05:06 04/17/20 05:06 04/17/20 05:06: Sodium 137.6, Potassium 3.94, Chloride 96.7 L, Carbon Dioxide 39.9 H, Anion Gap 4.94, BUN 17.3 H, Creatinine 0.75, Estimated GFR (MDRD) 75.00, BUN/Creatinine Ratio 23.06, Glucose 165.1 H D, Calcium 9.91, Total Bilirubin 0.34, AST 25.8, ALT 18.8, Alkaline Phosphatase 215.6 H, Total Protein 7.46, Albumin 3.75, Globulin 3.71, Albumin/Globulin Ratio 1.01 04/17/20 05:06: WBC 6.51 D, RBC 4.19 L, Hgb 11.5 L, Hct 37.2, MCV 88.8, MCH 27.4, MCHC 30.9 L, RDW Coeff of Elie 15.8 H, Plt Count 344, Immature Gran % (Auto) 0.6, Neut % (Auto) 90.3 H, Lymph % (Auto) 8.3 L, [place] % (Auto) 0.6, Eos % (Auto) 0.0, Baso % (Auto) 0.2, Neut # (Auto) 5.9, Lymph # (Auto) 0.5 L, [place] # (Auto) 0.0 L, Eos # (Auto) 0.0, Baso # (Auto) 0.0, Immature Gran # (Auto) 0.0 04/17/20 05:06: PT 19.3 H, INR 1.81 04/16/20 15:20: Procalcitonin < 0.05 04/16/20 15:20: Sodium 137.0, Potassium 4.54, Chloride 93.7 L, Carbon Dioxide 44.0 H*, Anion Gap 3.84, BUN 14.8, Creatinine 0.76, Estimated GFR (MDRD) 74.00, BUN/Creatinine Ratio 19.47, Glucose 111.7 H, Calcium 10.48 H, Total Bilirubin 0.45, AST 30.4, ALT 20.8, Alkaline Phosphatase 228.6 H, Troponin I < 0.012, Total Protein 7.88, Albumin 4.07, Globulin 3.81, Albumin/Globulin Ratio 1.06 04/16/20 15:20: Adenovirus (PCR) Not detected, B. pertussis DNA (PCR) Not detected, B.parapertussis DNA PCR Not detected, C. pneumoniae DNA (PCR) Not detected, Coronavirus OC43 (PCR) Not detected, Coronavirus HKU1 (PCR) Not detected, Coronavirus 229E (PCR) Not detected, Coronavirus NL63 (PCR) Not detected, Human Metapneumovir PCR Not detected, Influenza B (RT-PCR) Not detected, M. pneumoniae (PCR) Not detected, Parainfluenza 1 (PCR) Not detected, Parainfluenza 2 (PCR) Not detected, Parainfluenza 3 (PCR) Not detected, Parainfluenza 4 (PCR) Not detected, RSV (PCR) Not detected, Entero/Rhino (PCR) Not detected, SARS-CoV-2 (PCR) Not detected 04/16/20 15:20: Lactic Acid 1.25 04/16/20 15:20: WBC 12.30 H, RBC 4.32, Hgb 12.1, Hct 38.3, MCV 88.7, MCH 28.0, MCHC 31.6 L, RDW Coeff of Elie 15.6 H, Plt Count 347, Immature Gran % (Auto) 0.3, Neut % (Auto) 83.9 H, Lymph % (Auto) 7.6 L, [place] % (Auto) 6.4, Eos % (Auto) 1.4, Baso % (Auto) 0.4, Neut # (Auto) 10.3 H, Lymph # (Auto) 0.9, [place] # (Auto) 0.8, Eos # (Auto) 0.2, Baso # (Auto) 0.1, Immature Gran # (Auto) 0.0 ASSESSMENT: Please see below. 1. Acute COPD exacerbation 2. Shortness of breath 3. Persistent pneumonia 4. History of DVT/PE PLAN: 1. Discontinue Lovenox 2. Decrease IV fluids 3. Daily INR Plan and coordination of the patient's care discussed in the presence of Motor Assembler and nurse. SCRIBED BY: LEE RODRIGUEZ Medical Accounting Clerk scribed while in presence of service performed by Dr. Rascon/Zuly Henry APRN on 04/17/20 ([id number])
[2020-04-17] MEDS: DOXY-100 100 MG in SODIUM CHLORIDE 100 ML IV SCH ×2 (09:55→21:38)
[2020-04-17] MEDS: SOLU-MEDROL 125 MG IVP SCH ×2 (10:37→20:56)
[2020-04-17 11:20] LABS: ABG PH 7.49 (7.35-7.45)
[2020-04-17] MEDS: SODIUM CHLORIDE 1,000 ML IV SCH (11:47)
--- NOTE | 2020-04-17 14:39 | PN ---
DATE OF SERVICE: 04/16/2020 SUBJECTIVE: The patient was brought to the emergency room with complaint of shortness of breath and cough. The patient was seen and examined by the ER attending, Dr. King. He has been hospitalized for further treatment. The patient's CT scan of the chest shows right atypical consolidation with enlargement of the cavitation. The patient has recurrent pneumonia, pseudomonas. The patient is going to be on steroids and antibiotics. She will have COVID test done before her hospitalization. The patient's prognosis is poor. She is a DNR. TIME SPENT: More than 30 minutes. Plan and coordination of the patient's care discussed in the presence of nurse. ANETA
--- NOTE | 2020-04-17 14:58 | CT ---
EXAM: CT chest without contrast HISTORY: Shortness of air COMPARISON: 02/28/2020 TECHNIQUE: CT chest performed without intravenous contrast. Coronal and sagittal reformatted images obtained. FINDINGS: Thoracic inlet unremarkable. Heart normal in size. Coronary calcifications. No pericard ial effusion. Aorta normal in caliber. Moderate atherosclerosis. Evaluation for lymphadenopathy li mited without contrast. No lymphadenopathy identified in the chest. 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 Granulomas calcification in the liver and spleen. Left renal cyst is incomple tely imaged, measuring approximate 4.5 cm. No acute abnormalities of the bones. Mild compression fr acture T9 is similar to prior examination. Central airway patent. No pneumothorax. No pleural effu iris. Severe emphysema. Right upper lobe consolidation appears decreased with redemonstration of ca vitation in this region measuring up to 3.4 cm and increased compared with prior examination. Right lower lobe bronchial thickening with a new area of right basilar consolidation. Previously seen daria tional area of right basilar consolidation appears improved. Patchy left basilar consolidation appea rs improved with a small area of cavitation left lung base and decreased, measuring 6 mm. Scattered bronchiectasis with bronchial wall thickening, greatest at the right lung base. Left apical scarring IMPRESSION: 1. Right apical consolidation appears decreased with interval increase of associated cavitation. 2. Right lower lobe bronchial thickening with a new area of right basilar consolidation. Previously seen additional area of right basilar consolidation appears improved. 3. Patchy left basilar consolidation with small area of cavitation, improved 4. Above findings likely due to pneumonia and/or atypical infectious process. Recommend CT follow-u p 3 months. 5. Bilateral bronchiectasis with bronchial wall thickening, greatest at the right lung base. 6. Severe emphysema 7. Coronary calcifications. Atherosclerosis. 8. Mild compression fracture T9, similar to prior examination.
[2020-04-17] MEDS: COUMADIN PO SCH (17:01)
[2020-04-17] MEDS: COREG PO SCH (21:20)
[2020-04-17] MEDS: PHENERGAN WITH CODEINE 6.25/10 MG/5 ML PO PRN (21:38)
[2020-04-18] MEDS: VENTOLIN HFA (PER PUFF-WITH SPACER) IH SCH ×4 (04:50→23:20)
[2020-04-18] MEDS: ATROVENT HFA INHALER (PER PUFF-WITH SPACER) IH SCH ×4 (04:50→23:20)
[2020-04-18 05:35] LABS: BASOPHILS % (AUTO) 0.2 % (0.0-3.0); HEMATOCRIT 36.2 % (37.0-47.0); HEMOGLOBIN 11.6 g/dl (12.0-16.0); IMMATURE GRANULOCYTE # (AUTO) 0.1 (0.0-1.0); IMMATURE GRANULOCYTE % (AUTO) 0.9 % (0.0-5.0); LYMPHOCYTES # (AUTO) 0.8 K/uL (0.60-3.4); LYMPHOCYTES % (AUTO) 6.3 (10.0-50.0); MEAN CORPUSCULAR HEMOGLOBIN 28.2 pg (27.0-31.0); MEAN CORPUSCULAR VOLUME 88.1 fl (81.0-99.0); MONOCYTES # (AUTO) 0.2 K/uL (0.4-2.0); NEUTROPHILS % (AUTO) 90.6 % (42.2-75.2); PLATELET COUNT 370 10^3/uL (140-440); RDW COEFFICIENT OF VARIATION 15.6 % (11.6-14.8); RED BLOOD COUNT 4.11 10^6/ul (4.20-5.40); WHITE BLOOD COUNT 12.09 K/ul (4.6-10.2)
[2020-04-18 05:46] LABS: ALANINE AMINOTRANSFERASE 16.5 U/L (0-35); ALBUMIN 3.77 g/dL (3.5-5.0); ALKALINE PHOSPHATASE 194.9 U/L (53-141); ASPARTATE AMINO TRANSFERASE 23.3 U/L (14-36); BILIRUBIN,TOTAL 0.33 mg/dL (0.2-1.3); BLOOD UREA NITROGEN 18.9 mg/dL (7-17); CALCIUM 10.18 mg/dL (8.4-10.2); CHLORIDE 97.9 mmol/L (98-107); CREATININE 0.67 mg/dL (0.60-1.30); GLUCOSE 122.6 mg/dL (74-106); POTASSIUM 4.32 mmol/L (3.5-5.1); SODIUM 136.3 mmol/L (134.5-145); TOTAL PROTEIN 7.32 g/dL (6.3-8.2)
[2020-04-18 05:50] LABS: PROTHROMBIN TIME 27.9 SEC (9.3-11.0)
[2020-04-18] MEDS: LASIX TAB PO SCH (05:51)
[2020-04-18] MEDS: PROTONIX PO SCH ×2 (05:51→17:47)
--- NOTE | 2020-04-18 08:56 | PCM.PROG ---
Attending Provider: ATTENDING PROVIDER: Dr. RAISA RASCON This patient is seen with Zuly Henry, Nurse Practitioner. DATE OF SERVICE: 04/18/20 SUBJECTIVE: This 79 year old /WHITE F was hospitalized 04/16/20. The patient is resting comfortably. She states she is feeling pretty good this morning. Wheezing has resolved but still with some tightness and productive cough. She does have shortness of breath with any type of exertion. Sputum is positive for pseudomonas as it has been and it is only sensitive to Gentamicin and Tobramycin. REVIEW OF SYSTEMS: CONSTITUTIONAL: No night sweats. No fatigue, malaise, lethargy. No fever or chills. Weakness. HEENT: Eyes: No visual changes. No eye pain. No eye discharge. ENT: No runny nose. No epistaxis. No sinus pain. No odynophagia. No congestion. RESPIRATORY: Cough, no congestion. No hemoptysis. Shortness of breath. CARDIOVASCULAR: No angina symptoms. No CHF symptoms. No atypical chest pain for CAD. No palpitations. No orthopnea.. GASTROINTESTINAL: No abdominal pain. No nausea or vomiting. No diarrhea or constipation. No hematemesis. No hematochezia. GENITOURINARY: No urgency. No frequency. No dysuria. No hematuria. No obstructive symptoms. No discharge. No pain. No significant abnormal bleeding. MUSCULOSKELETAL: No musculoskeletal pain; no joint swelling. NEUROLOGICAL: Awake, alert, oriented to time, place and person. No headache. No neck pain. No syncope. No seizures. No dizziness. PSYCHIATRIC: Not anxious. No depression. No suicidal thoughts. No homicidal thoughts. SKIN: No rash. No lesions. No wounds. ENDOCRINE: No unexplained weight loss. No weight gain. HEMATOLOGIC/LYMPHATIC: No anemia. No purpura. No petechiae. No prolonged or excessive bleeding. No palpable lymph nodes. PHYSICAL EXAMINATION: GENERAL: The patient is awake, alert and oriented, lying in bed in no distress. VITAL SIGNS: Temperature 98 F, Pulse 94, Respiratory Rate 15, BP 138/72, Pulse Ox 97% HEENT: Head normocephalic, atraumatic. Eyes: Extraocular muscles are intact. Pupils are equal, round and reactive to light and accommodation. Ears: No lesions. Nose appeared normal. Throat: No exudate or erythema. NECK: Supple. No JVD, no carotid bruit. No lymphadenopathy or thyromegaly. LUNGS: Severely diminished breath sounds. Rhonchi bilaterally at the bases. Clear to auscultation. Percussion note normal. Chest symmetrical. HEART: S1, S2, no S3. No murmurs. No cyanosis or clubbing. No ascites. Pulses: Dorsalis pedis and posterior tibial pulses +1 to +2 both sides. ABDOMEN: Soft. Non-tender. Bowel sounds active. No CVA tenderness. No mass felt. EXTREMITIES: No edema. Full range of motion of all extremities, equal. NEUROLOGIC: No focal deficit. Cranial nerves II through XII are grossly intact. No headache, no double vision or headache. SKIN: Not dry. Intact. Turgor-normal. LYMPHATIC: No palpable lymph nodes/no lymphedema. MUSCULOSKELETAL: Normal joints with no swelling. Muscle tone is normal. LAB REVIEW: 04/18/20 04:59 04/18/20 04:59 04/18/20 04:59: Sodium 136.3, Potassium 4.32, Chloride 97.9 L, Carbon Dioxide 27.2 D, Anion Gap 15.52, BUN 18.9 H, Creatinine 0.67, Estimated GFR (MDRD) 85.00, BUN/Creatinine Ratio 28.20, Glucose 122.6 H, Calcium 10.18, Total Bilirubin 0.33, AST 23.3, ALT 16.5, Alkaline Phosphatase 194.9 H, Total Protein 7.32, Albumin 3.77, Globulin 3.55, Albumin/Globulin Ratio 1.06 04/18/20 04:59: WBC 12.09 H D, RBC 4.11 L, Hgb 11.6 L, Hct 36.2 L, MCV 88.1, MCH 28.2, MCHC 32.0, RDW Coeff of Elie 15.6 H, Plt Count 370, Immature Gran % (Auto) 0.9, Neut % (Auto) 90.6 H, Lymph % (Auto) 6.3 L, [place] % (Auto) 2.0, Eos % (Auto) 0.0, Baso % (Auto) 0.2, Neut # (Auto) 11.0 H, Lymph # (Auto) 0.8, [place] # (Auto) 0.2 L, Eos # (Auto) 0.0, Baso # (Auto) 0.0, Immature Gran # (Auto) 0.1 04/18/20 04:59: PT 27.9 H D, INR 2.60 04/16/20 14:00: Puncture Site Rbrach, Base Excess 14.0 H, O2 Saturation 94.0, ABG pH 7.49 H, ABG pCO2 49.0 H, ABG pO2 65.0 L, ABG HCO3 37.3 H, ABG Total CO2 38.8 H, [place] Test +, Hemoglobin 1.4, Oxyhemoglobin 93.2 L, Carboxyhemoglobin 2.2 H, Total Hemoglobin 10.9 L, O2 Delivery Device Nc, Oxygen Liter Flow 3.00, FiO2 % 32.0 ASSESSMENT: Please see below. 1. Bilateral pneumonia 2. Chronic respiratory failure 3. Severe COPD 4. Anxiety PLAN: 1. Gentamicin IV pharmacy to dose 2. Will adjust antibiotics. Plan and coordination of the patient's care discussed in the presence of Placement Coordinator and nurse. SCRIBED BY: LEE RODRIGUEZ Judge'S Clerk scribed while in presence of service performed by Dr. Rascon/Zuly Henry APRN on 04/18/20 ([id number])
[2020-04-18] MEDS ORDERED: GENTAMICIN SULFATE IV SCH (09:00)
[2020-04-18] MEDS ORDERED: SODIUM CHLORIDE IV SCH (09:00)
--- NOTE | 2020-04-18 10:01 | HP ---
DATE OF SERVICE: 04/16/20 HISTORY OF PRESENT ILLNESS: The patient is a 79-year-old white female with a long history of severe COPD and persistent pneumonia, who presented to the emergency room with worsening shortness of breath. PAST MEDICAL HISTORY: Persistent bilateral pneumonia History of pseudomonas per sputum culture which I do believe she is colonized Severe COPD, oxygen and steroid dependent Chronic respiratory failure History of DVT/PE on Coumadin Hypertension Chronic anemia Pulmonary fibrosis Anxiety Osteopenia Former smoker Pulmonary nodules sees Dr. Peterson Anxiety GERD Degenerative disk disease Arthritis of the left shoulder Polyarthritis Recurrent gout T9 compression fracture PAST SURGICAL HISTORY: Hysterectomy Appendectomy Left cataract surgery REVIEW OF SYSTEMS: CONSTITUTIONAL: Generalized weakness. No night sweats. No malaise, lethargy. No fever or chills. HEENT: Eyes: No visual changes. No eye pain. No eye discharge. ENT: No runny nose. No epistaxis. No sinus pain. No sore throat. No odynophagia. No ear pain. No congestion. RESPIRATORY: Cough. No hemoptysis. CARDIOVASCULAR: Positive for shortness of breath. No angina symptoms. No CHF symptoms. No atypical chest pain for CAD. No palpitations. No PND. No orthopnea. GASTROINTESTINAL: No abdominal pain. No nausea or vomiting. No diarrhea or constipation. No hematemesis. No hematochezia. GENITOURINARY: No urgency. No frequency. No dysuria. No hematuria. No obstructive symptoms. No discharge. No pain. No significant abnormal bleeding. MUSCULOSKELETAL: No musculoskeletal pain. No joint swelling. No arthritis. NEUROLOGICAL: No headache. No neck pain. No syncope. No seizures. No dizziness. PSYCHIATRIC: Not anxious. No depression. No suicidal thoughts. No homicidal thoughts. SKIN: No rash. No lesions. No wounds. ENDOCRINE: No unexplained weight loss. No weight gain. HEMATOLOGIC/LYMPHATIC: No anemia. No purpura. No petechiae. No prolonged or excessive bleeding. No palpable lymph nodes. PERSONAL/FAMILY/SOCIAL HISTORY: She is a former smoker, quit for the past 10 years. She is . Lives at home with her . She is on oxygen. No alcohol or illicit drug use. MEDICATIONS: Alprazolam 0.25 mg p.o. t.i.d. Carvedilol (Coreg) 3.125 mg p.o. b.i.d. with meal Pantoprazole (Protonix) 40 mg p.o. b.i.d. Ferrous Sulfate 325 mg p.o. daily Guaifenesin 600 mg p.o. q.12h Furosemide 20 mg p.o. q.d a.c. Tramadol 50 mg p.o.b.i.d. Brimonidine one drop both eyes b.i.d. Acetaminophen 650 mg p.o. q.4hr p.r.n. Loratadine 10 mg p.o. daily Budesonide 0.5 mg/2 mL suspension for nebulization Ipratropium-Albuterol 0.5 mg-3 mg, 3 mL inhalation t.i.d. Promethazine-codeine 6.25-10 mg/5 mL syrup 10 mL p.o. q.6hr p.r.n. Saccharomyces boulardii 250 mg p.o. b.i.d. Warfarin 3 mg p.o.q.6 p.m. Potassium Chloride (K-Tab) 10 mEq p.o. daily ALLERGIES: CIPROFLOXACIN, ACETYLCYSTEINE, HYDROCODONE, (GI COCKTAIL), (MUCOMYST) PHYSICAL EXAMINATION: GENERAL: The patient is , lying/sitting in bed in no distress. VITAL SIGNS: HEENT: Cachetic. Head normocephalic, atraumatic. Eyes: Extraocular muscles are intact. Pupils are equal, round and reactive to light and accommodation. Ears: No lesions. Nose appeared normal. Throat: No exudate or erythema. NECK: Supple. No JVD, no carotid bruit. No lymphadenopathy or thyromegaly. LUNGS: Severely diminished breath sounds with bilateral inspiratory and expiratory wheezing. Visibly short of breath. Percussion note normal. Chest symmetrical. HEART: S1, S2, no S3. No murmur. No cyanosis or clubbing. No ascites. Pulses: Dorsalis pedis and posterior tibial pulses +1 to +2 bilaterally. ABDOMEN: Soft. Nontender. Bowel sounds active. No CVA tenderness. No mass felt. EXTREMITIES: No edema. Full range of motion of all extremities, equal. NEUROLOGIC: No focal deficit. Cranial nerves II through XII are grossly intact. No headache, no double vision or headache. SKIN: Not dry. Intact. Turgor - normal. LYMPHATIC: No palpable lymph nodes/no lymphedema. MUSCULOSKELETAL: Normal joints with no swelling. Muscle tone is normal. ABGs/LABS/IMAGING: In the ER, pH 7.49, pc02 49, p02 65, oxygen saturation 94%. Sodium 137, potassium 4.5, BUN 14, creatinine 0.76, glucose 111, calcium 10.4, alkaline phosphatase 228, total protein 7.8, albumin 4.07. Lactic acid 1.25, white count 12.3, hemoglobin 12.1, hematocrit 38.3, platelets 347. Covid PCR was negative. CT report - bilateral pneumonia similar to previous appearing. ASSESSMENT: 1. BILATERAL PNEUMONIA 2. CHRONIC RESPIRATORY FAILURE 3. SEVERE COPD BOTH STEROID AND OXYGEN DEPENDENT 4. GENERALIZED WEAKNESS 5. SHORTNESS OF BREATH PLAN: 1. We will admit. 2. Routine telemetry orders. 3. CBC, CMP daily. 4. Start Merrem IV to be dosed by pharmacy. 5. Solu-Medrol 125 mg IV q.8hr. 6. Albuterol inhaler 2 puffs 3 times a day charisse. 7. Symbicort inhaler 160 two puffs b.i.d. 8. Daily PT/INR. 9. Continue all home medications. 10. UA with culture. 11. Sputum culture. 12. Regular diet. 13. Oxygen at 3L. 14. Repeat ABGs tomorrow morning. 15. Will follow closely. TIME SPENT: More than 70 minutes. MTDD
[2020-04-18] MEDS: FERROUS SULFATE PO SCH (10:04)
[2020-04-18] MEDS: XANAX PO SCH ×3 (10:04→20:36)
[2020-04-18] MEDS: COREG PO SCH ×2 (10:05→17:47)
[2020-04-18] MEDS: MICRO-K CAP PO SCH (10:05)
[2020-04-18] MEDS: FLORASTOR PO SCH ×2 (10:05→20:36)
[2020-04-18] MEDS: CLARITIN PO SCH (10:06)
[2020-04-18] MEDS: MUCINEX PO SCH ×2 (10:06→20:36)
[2020-04-18] MEDS: ULTRAM PO SCH ×2 (10:06→20:36)
[2020-04-18] MEDS: GENTAMICIN SULFATE IV SCH (10:15)
[2020-04-18] MEDS: SODIUM CHLORIDE IV SCH (10:15)
--- NOTE | 2020-04-18 10:21 | PN ---
DATE OF SERVICE: 04/17/2020 SUBJECTIVE: The patient was seen and examined with the Nurse Practitioner. The patient's as usual gets short of breath on minimal exertion. Appetite still has been poor but she ate more than ever did for the past week or so. Her pneumonia has become chronic. She is so far COVID negative. History and Physical was done with Nurse Practitioner. TIME SPENT: More than 30 minutes. Plan and coordination of the patient's care discussed in the presence of nurse. ANETA
[2020-04-18] MEDS: SOLU-MEDROL 125 MG IVP SCH ×2 (10:49→21:22)
[2020-04-18] MEDS: BRIMONIDINE TARTRATE 0.2% OPTH SOL EACHEYE SCH ×2 (10:51→20:37)
[2020-04-18 11:49] LABS: CARBON DIOXIDE 33.6 mmol/L (22-30.0)
[2020-04-18] MEDS: MERREM 1 GM/50 ML NACL 1 GM/50 ML BAG IV SCH ×2 (12:59→20:37)
[2020-04-18 15:59] LABS: BILIRUBIN,URINE Negative (NEGATIVE); CLARITY,URINE Clear (CLEAR); COLOR,URINE Yellow (YELLOW); GLUCOSE, URINE (UA) Negative (NEGATIVE); KETONES,URINE Negative (NEGATIVE); LEUKOCYTE ESTERASE ,URINE Negative (NEGATIVE); NITRITE,URINE Negative (NEGATIVE); PROTEIN,URINE Negative (NEGATIVE); URINE, BLOOD Trace-intact (NEGATIVE); UROBILINOGEN,URINE 0.2 (0.2)
[2020-04-18 16:07] LABS: URINE WBC, MICROSCOPIC 0-2 (0-2)
[2020-04-18 16:08] LABS: BACTERIA,URINE TRACE (NOT PRESENT)
[2020-04-18] MEDS: COUMADIN PO SCH (17:47)
[2020-04-18] MEDS: PHENERGAN WITH CODEINE 6.25/10 MG/5 ML PO PRN (20:37)
[2020-04-19] MEDS: VENTOLIN HFA (PER PUFF-WITH SPACER) IH SCH ×4 (04:35→23:07)
[2020-04-19] MEDS: ATROVENT HFA INHALER (PER PUFF-WITH SPACER) IH SCH ×4 (04:35→23:07)
[2020-04-19] MEDS: LASIX TAB PO SCH (06:03)
[2020-04-19] MEDS: PROTONIX PO SCH ×2 (06:04→17:15)
[2020-04-19 07:11] LABS: ALBUMIN 3.86 g/dL (3.5-5.0); ALKALINE PHOSPHATASE 189.1 U/L (53-141); ASPARTATE AMINO TRANSFERASE 24.6 U/L (14-36); BASOPHILS % (AUTO) 0.1 % (0.0-3.0); BILIRUBIN,TOTAL 0.35 mg/dL (0.2-1.3); BLOOD UREA NITROGEN 23.8 mg/dL (7-17); CALCIUM 10.53 mg/dL (8.4-10.2); CARBON DIOXIDE 30.8 mmol/L (22-30.0); CHLORIDE 96.9 mmol/L (98-107); CREATININE 0.77 mg/dL (0.60-1.30); GLUCOSE 98.7 mg/dL (74-106); HEMATOCRIT 36.4 % (37.0-47.0); HEMOGLOBIN 11.6 g/dl (12.0-16.0); IMMATURE GRANULOCYTE # (AUTO) 0.1 (0.0-1.0); IMMATURE GRANULOCYTE % (AUTO) 0.8 % (0.0-5.0); LYMPHOCYTES # (AUTO) 0.8 K/uL (0.60-3.4); LYMPHOCYTES % (AUTO) 6.7 (10.0-50.0); MEAN CORPUSCULAR HEMOGLOBIN 27.8 pg (27.0-31.0); MEAN CORPUSCULAR HGB CONC 31.9 (31.8-35.4); MEAN CORPUSCULAR VOLUME 87.1 fl (81.0-99.0); MONOCYTES # (AUTO) 0.4 K/uL (0.4-2.0); NEUTROPHILS # (AUTO) 10.7 K/ul (2.0-6.9); NEUTROPHILS % (AUTO) 89.4 % (42.2-75.2); PLATELET COUNT 364 10^3/uL (140-440); POTASSIUM 4.04 mmol/L (3.5-5.1); RDW COEFFICIENT OF VARIATION 15.9 % (11.6-14.8); RED BLOOD COUNT 4.18 10^6/ul (4.20-5.40); SODIUM 135.4 mmol/L (134.5-145); TOTAL PROTEIN 7.22 g/dL (6.3-8.2); WHITE BLOOD COUNT 11.97 K/ul (4.6-10.2)
[2020-04-19] MEDS: FLORASTOR PO SCH ×2 (08:34→20:14)
[2020-04-19] MEDS: XANAX PO SCH ×3 (08:34→20:14)
[2020-04-19] MEDS: ULTRAM PO SCH ×2 (08:34→20:14)
[2020-04-19] MEDS: BRIMONIDINE TARTRATE 0.2% OPTH SOL EACHEYE SCH ×2 (08:34→20:16)
[2020-04-19] MEDS: CLARITIN PO SCH (08:34)
[2020-04-19] MEDS: MERREM 1 GM/50 ML NACL 1 GM/50 ML BAG IV SCH ×2 (08:35→20:15)
[2020-04-19] MEDS: COREG PO SCH ×2 (08:35→17:14)
[2020-04-19] MEDS: FERROUS SULFATE PO SCH (08:35)
[2020-04-19] MEDS: MICRO-K CAP PO SCH (08:35)
[2020-04-19] MEDS: MUCINEX PO SCH ×2 (08:35→20:14)
[2020-04-19] MEDS: SOLU-MEDROL 125 MG IVP SCH ×2 (09:10→20:39)
[2020-04-19] MEDS: GENTAMICIN SULFATE IV SCH (09:56)
[2020-04-19] MEDS: SODIUM CHLORIDE IV SCH (09:56)
[2020-04-19] MEDS: NICODERM 14 MG TD SCH (09:57)
--- NOTE | 2020-04-19 10:55 | PCM.PROG ---
Attending Provider: ATTENDING PROVIDER: Dr. RAISA RASCON This patient is seen with Zuly Henry, Nurse Practitioner. DATE OF SERVICE: 04/19/20 SUBJECTIVE: This 79 year old /WHITE F was hospitalized 04/16/20. The patient is resting comfortably. She is tolerating Gentamicin well. Still has tight productive cough. INR is pending today. REVIEW OF SYSTEMS: CONSTITUTIONAL: No night sweats. No fatigue, malaise, lethargy. No fever or chills. Weakness. HEENT: Eyes: No visual changes. No eye pain. No eye discharge. ENT: No runny nose. No epistaxis. No sinus pain. No odynophagia. No congestion. RESPIRATORY: Cough, no congestion. No hemoptysis. Shortness of breath. CARDIOVASCULAR: No angina symptoms. No CHF symptoms. No atypical chest pain for CAD. No palpitations. No orthopnea.. GASTROINTESTINAL: No abdominal pain. No nausea or vomiting. No diarrhea or constipation. No hematemesis. No hematochezia. GENITOURINARY: No urgency. No frequency. No dysuria. No hematuria. No obstructive symptoms. No discharge. No pain. No significant abnormal bleeding. MUSCULOSKELETAL: No musculoskeletal pain; no joint swelling. NEUROLOGICAL: Awake, alert, oriented to time, place and person. No headache. No neck pain. No syncope. No seizures. No dizziness. PSYCHIATRIC: Not anxious. No depression. No suicidal thoughts. No homicidal thoughts. SKIN: No rash. No lesions. No wounds. ENDOCRINE: No unexplained weight loss. No weight gain. HEMATOLOGIC/LYMPHATIC: No anemia. No purpura. No petechiae. No prolonged or excessive bleeding. No palpable lymph nodes. PHYSICAL EXAMINATION: GENERAL: The patient is awake, alert and oriented, lying in bed in no distress. VITAL SIGNS: Temperature 98 F, Pulse 73, Respiratory Rate 18, BP 152/78, Pulse Ox 99% HEENT: Head normocephalic, atraumatic. Eyes: Extraocular muscles are intact. Pupils are equal, round and reactive to light and accommodation. Ears: No lesions. Nose appeared normal. Throat: No exudate or erythema. NECK: Supple. No JVD, no carotid bruit. No lymphadenopathy or thyromegaly. LUNGS: diminished breath sounds. Bilateral upper rhonchi. Clear to auscultation. Percussion note normal. Chest symmetrical. HEART: S1, S2, no S3. No murmurs. No cyanosis or clubbing. No ascites. Pulse s: Dorsalis pedis and posterior tibial pulses +1 to +2 both sides. ABDOMEN: Soft. Non-tender. Bowel sounds active. No CVA tenderness. No mass felt. EXTREMITIES: No edema. Full range of motion of all extremities, equal. NEUROLOGIC: No focal deficit. Cranial nerves II through XII are grossly intact. No headache, no double vision or headache. SKIN: Not dry. Intact. Turgor-normal. LYMPHATIC: No palpable lymph nodes/no lymphedema. MUSCULOSKELETAL: Normal joints with no swelling. Muscle tone is normal. LAB REVIEW: 04/19/20 06:48 04/19/20 06:48 04/19/20 06:48: PT 37.0 H D, INR 3.45 04/19/20 06:48: Sodium 135.4, Potassium 4.04, Chloride 96.9 L, Carbon Dioxide 30.8 H, Anion Gap 11.74, BUN 23.8 H, Creatinine 0.77, Estimated GFR (MDRD) 73.00, BUN/Creatinine Ratio 30.90, Glucose 98.7, Calcium 10.53 H, Total Bilirubin 0.35, AST 24.6, ALT 18.0, Alkaline Phosphatase 189.1 H, Total Protein 7.22, Albumin 3.86, Globulin 3.36, Albumin/Globulin Ratio 1.14 04/19/20 06:48: WBC 11.97 H, RBC 4.18 L, Hgb 11.6 L, Hct 36.4 L, MCV 87.1, MCH 27.8, MCHC 31.9, RDW Coeff of Elie 15.9 H, Plt Count 364, Immature Gran % (Auto) 0.8, Neut % (Auto) 89.4 H, Lymph % (Auto) 6.7 L, [place] % (Auto) 3.0, Eos % (Auto) 0.0, Baso % (Auto) 0.1, Neut # (Auto) 10.7 H, Lymph # (Auto) 0.8, [place] # (Auto) 0.4, Eos # (Auto) 0.0, Baso # (Auto) 0.0, Immature Gran # (Auto) 0.1 04/18/20 15:45: Urine Color Yellow, Urine Clarity Clear, Urine pH 6.0, Ur Specific [place] 1.015, Urine Protein Negative, Urine Glucose (UA) Negative, Urine Ketones Negative, Urine Blood Trace-intact H, Urine Nitrite Negative, Urine Bilirubin Negative, Urine Urobilinogen 0.2, Ur Leukocyte Esterase Negative, Urine Microscopic RBC 2-5, Urine Microscopic WBC 0-2, Ur Squamous Epith Cells 10-20, Urine Bacteria Trace 04/18/20 04:59: Carbon Dioxide 33.6 H, Anion Gap 9.12 ASSESSMENT: Please see below. 1. Bilateral pneumonia 2. COVID negative 3. Severe COPD 4. O2 and steroid dependent 5. Chronic anemia 6. Chronic anti-coagulation due to history of DVT PLAN: 1. Continue IV antibiotics 2. Hold Coumadin today and tomorrow. Plan and coordination of the patient's care discussed in the presence of Air Box Tester and nurse. SCRIBED BY: Zachariah REDDist scribed while in presence of service performed by Dr. Rascon/Zuly Henry APRN on 04/19/20 ([id number])
--- NOTE | 2020-04-19 13:57 | PN ---
DATE OF SERVICE: 04/18/2020 SUBJECTIVE: The patient was seen and examined with the Nurse Practitioner. The patient has pseudomonas in the sputum as expected. The patient has pseudomonas pneumonia. We will Gentamicin. Kidney functions are normal at present time. We will monitor the kidney functions. TIME SPENT: More than 30 minutes. Plan and coordination of the patient's care discussed in the presence of nurse. ANETA
[2020-04-19] MEDS: COUMADIN PO SCH (17:12)
[2020-04-19] MEDS: PHENERGAN WITH CODEINE 6.25/10 MG/5 ML PO PRN (20:16)
[2020-04-20] MEDS: ATROVENT HFA INHALER (PER PUFF-WITH SPACER) IH SCH ×4 (04:50→23:30)
[2020-04-20] MEDS: VENTOLIN HFA (PER PUFF-WITH SPACER) IH SCH ×4 (04:50→23:31)
[2020-04-20 05:09] LABS: BASOPHILS % (AUTO) 0.1 % (0.0-3.0); HEMOGLOBIN 11.2 g/dl (12.0-16.0); IMMATURE GRANULOCYTE # (AUTO) 0.1 (0.0-1.0); IMMATURE GRANULOCYTE % (AUTO) 1.1 % (0.0-5.0); LYMPHOCYTES # (AUTO) 0.7 K/uL (0.60-3.4); LYMPHOCYTES % (AUTO) 7.4 (10.0-50.0); MEAN CORPUSCULAR HEMOGLOBIN 27.5 pg (27.0-31.0); MONOCYTES # (AUTO) 0.2 K/uL (0.4-2.0); MONOCYTES % (AUTO) 2.3 (0-10); NEUTROPHILS % (AUTO) 89.1 % (42.2-75.2); PLATELET COUNT 329 10^3/uL (140-440); RDW COEFFICIENT OF VARIATION 15.5 % (11.6-14.8); RED BLOOD COUNT 4.07 10^6/ul (4.20-5.40)
[2020-04-20 05:22] LABS: ALANINE AMINOTRANSFERASE 16.1 U/L (0-35); ALBUMIN 3.31 g/dL (3.5-5.0); ALKALINE PHOSPHATASE 151.3 U/L (53-141); ASPARTATE AMINO TRANSFERASE 25.4 U/L (14-36); BILIRUBIN,TOTAL 0.31 mg/dL (0.2-1.3); BLOOD UREA NITROGEN 29.8 mg/dL (7-17); CALCIUM 10.12 mg/dL (8.4-10.2); CARBON DIOXIDE 36.2 mmol/L (22-30.0); CHLORIDE 97.1 mmol/L (98-107); CREATININE 0.78 mg/dL (0.60-1.30); GLUCOSE 124.1 mg/dL (74-106); POTASSIUM 4.18 mmol/L (3.5-5.1); SODIUM 135.5 mmol/L (134.5-145); TOTAL PROTEIN 6.44 g/dL (6.3-8.2)
[2020-04-20] MEDS: PROTONIX PO SCH ×2 (05:35→16:14)
[2020-04-20] MEDS: LASIX TAB PO SCH (05:35)
[2020-04-20 06:32] LABS: PROTHROMBIN TIME 34.1 SEC (9.3-11.0)
[2020-04-20] MEDS: NICODERM 14 MG TD SCH (08:59)
[2020-04-20] MEDS: MERREM 1 GM/50 ML NACL 1 GM/50 ML BAG IV SCH ×2 (08:59→20:22)
[2020-04-20] MEDS: ULTRAM PO SCH ×2 (09:00→20:21)
[2020-04-20] MEDS: FERROUS SULFATE PO SCH (09:00)
[2020-04-20] MEDS: BRIMONIDINE TARTRATE 0.2% OPTH SOL EACHEYE SCH ×2 (09:00→20:20)
[2020-04-20] MEDS: COREG PO SCH ×2 (09:00→16:14)
[2020-04-20] MEDS: FLORASTOR PO SCH ×2 (09:01→20:22)
[2020-04-20] MEDS: XANAX PO SCH ×3 (09:01→20:21)
[2020-04-20] MEDS: MUCINEX PO SCH ×2 (09:01→20:22)
[2020-04-20] MEDS: CLARITIN PO SCH (09:01)
[2020-04-20] MEDS: MICRO-K CAP PO SCH (09:01)
[2020-04-20] MEDS: SOLU-MEDROL 125 MG IVP SCH ×2 (09:18→20:21)
[2020-04-20] MEDS: GENTAMICIN SULFATE IV SCH (10:51)
[2020-04-20] MEDS: SODIUM CHLORIDE IV SCH (10:51)
[2020-04-20] MEDS: SYMBICORT 160-4.5 MCG INHALER IH SCH ×2 (11:56→20:20)
--- NOTE | 2020-04-20 11:58 | PCM.PROG ---
Attending Provider: ATTENDING PROVIDER: Dr. RAISA RASCON This patient is seen with Zuly Henry, Nurse Practitioner. DATE OF SERVICE: 04/20/20 SUBJECTIVE: This 79 year old /WHITE F was hospitalized 04/16/20. The patient is resting comfortably. She has small nose bleed this morning due to nasal canula. She has some wheezing noted today. Still very weak. REVIEW OF SYSTEMS: CONSTITUTIONAL: No night sweats. No fatigue, malaise, lethargy. No fever or chills. Weakness. HEENT: Eyes: No visual changes. No eye pain. No eye discharge. ENT: No runny nose. Epistaxis. No sinus pain. No odynophagia. No congestion. RESPIRATORY: Cough, no congestion. No hemoptysis. Shortness of breath. CARDIOVASCULAR: No angina symptoms. No CHF symptoms. No atypical chest pain for CAD. No palpitations. No orthopnea.. GASTROINTESTINAL: No abdominal pain. No nausea or vomiting. No diarrhea or constipation. No hematemesis. No hematochezia. GENITOURINARY: No urgency. No frequency. No dysuria. No hematuria. No obstructive symptoms. No discharge. No pain. No significant abnormal bleeding. MUSCULOSKELETAL: No musculoskeletal pain; no joint swelling. NEUROLOGICAL: Awake, alert, oriented to time, place and person. No headache. No neck pain. No syncope. No seizures. No dizziness. PSYCHIATRIC: Not anxious. No depression. No suicidal thoughts. No homicidal thoughts. SKIN: No rash. No lesions. No wounds. ENDOCRINE: No unexplained weight loss. No weight gain. HEMATOLOGIC/LYMPHATIC: No anemia. No purpura. No petechiae. No prolonged or excessive bleeding. No palpable lymph nodes. PHYSICAL EXAMINATION: GENERAL: The patient is awake, alert and oriented, lying in bed in no distress. VITAL SIGNS: Temperature 97.6 F, Pulse 77, Respiratory Rate 20, BP 150/79, Pulse Ox 97% HEENT: Head normocephalic, atraumatic. Eyes: Extraocular muscles are intact. Pupils are equal, round and reactive to light and accommodation. Ears: No lesions. Nose appeared normal. Throat: No exudate or erythema. NECK: Supple. No JVD, no carotid bruit. No lymphadenopathy or thyromegaly. LUNGS: Severely diminished breath sounds. Bilateral faint expiratory wheezing. Clear to auscultation. Percussion note normal. Chest symmetrical. HEART: S1, S2, no S3. No murmurs. No cyanosis or clubbing. No ascites. Pulses: Dorsalis pedis and posterior tibial pulses +1 to +2 both sides. ABDOMEN: Soft. Non-tender. Bowel sounds active. No CVA tenderness. No mass felt. EXTREMITIES: No edema. Full range of motion of all extremities, equal. NEUROLOGIC: No focal deficit. Cranial nerves II through XII are grossly intact. No headache, no double vision or headache. SKIN: Not dry. Intact. Turgor-normal. LYMPHATIC: No palpable lymph nodes/no lymphedema. MUSCULOSKELETAL: Normal joints with no swelling. Muscle tone is normal. LAB REVIEW: 04/20/20 04:52 04/20/20 04:52 04/20/20 04:52: PT 34.1 H, INR 3.18 04/20/20 04:52: Sodium 135.5, Potassium 4.18, Chloride 97.1 L, Carbon Dioxide 36.2 H, Anion Gap 6.38, BUN 29.8 H, Creatinine 0.78, Estimated GFR (MDRD) 72.00, BUN/Creatinine Ratio 38.20, Glucose 124.1 H, Calcium 10.12, Total Bilirubin 0.31, AST 25.4, ALT 16.1, Alkaline Phosphatase 151.3 H D, Total Protein 6.44, Albumin 3.31 L, Globulin 3.13, Albumin/Globulin Ratio 1.05 04/20/20 04:52: WBC 9.00, RBC 4.07 L, Hgb 11.2 L, Hct 35.0 L, MCV 86.0, MCH 27.5, MCHC 32.0, RDW Coeff of Elie 15.5 H, Plt Count 329, Immature Gran % (Auto) 1.1, Neut % (Auto) 89.1 H, Lymph % (Auto) 7.4 L, [place] % (Auto) 2.3, Eos % (Auto) 0.0, Baso % (Auto) 0.1, Neut # (Auto) 8.0 H, Lymph # (Auto) 0.7, [place] # (Auto) 0.2 L, Eos # (Auto) 0.0, Baso # (Auto) 0.0, Immature Gran # (Auto) 0.1 04/18/20 20:18: Gentamicin Peak 5.3 L ASSESSMENT: Please see below. 1. Bilateral pneumonia 2. Severe COPD 3. Hypercoagulopathy 4. Anxiety PLAN: 1. Decrease Solu-Medrol 100mg IV Q 12 hours 2. Add Symbicort 160mg two puffs BID 3. INR 3.18 today will hold Coumadin today 4. Gentamicin adjusted by Pharmacy Plan and coordination of the patient's care discussed in the presence of Gatehouse Attendant and nurse. SCRIBED BY: Luis REDD scribed while in presence of service performed by Dr. Rascon/Zuly Henry APRN on 04/20/20 ([id number])
[2020-04-20] MEDS: PHENERGAN WITH CODEINE 6.25/10 MG/5 ML PO PRN (20:22)
[2020-04-21] MEDS: VENTOLIN HFA (PER PUFF-WITH SPACER) IH SCH ×4 (04:40→23:10)
[2020-04-21] MEDS: ATROVENT HFA INHALER (PER PUFF-WITH SPACER) IH SCH ×4 (04:40→23:10)
[2020-04-21 05:53] LABS: BASOPHILS % (AUTO) 0.1 % (0.0-3.0); HEMATOCRIT 38.2 % (37.0-47.0); IMMATURE GRANULOCYTE # (AUTO) 0.1 (0.0-1.0); IMMATURE GRANULOCYTE % (AUTO) 1.1 % (0.0-5.0); LYMPHOCYTES % (AUTO) 8.4 (10.0-50.0); MEAN CORPUSCULAR HEMOGLOBIN 27.5 pg (27.0-31.0); MEAN CORPUSCULAR HGB CONC 31.4 (31.8-35.4); MEAN CORPUSCULAR VOLUME 87.4 fl (81.0-99.0); MONOCYTES # (AUTO) 0.3 K/uL (0.4-2.0); MONOCYTES % (AUTO) 2.1 (0-10); NEUTROPHILS # (AUTO) 10.5 K/ul (2.0-6.9); NEUTROPHILS % (AUTO) 88.3 % (42.2-75.2); PLATELET COUNT 344 10^3/uL (140-440); RDW COEFFICIENT OF VARIATION 15.7 % (11.6-14.8); RED BLOOD COUNT 4.37 10^6/ul (4.20-5.40); WHITE BLOOD COUNT 11.84 K/ul (4.6-10.2)
[2020-04-21] MEDS: LASIX TAB PO SCH (05:54)
[2020-04-21] MEDS: PROTONIX PO SCH ×2 (05:54→16:56)
[2020-04-21 06:05] LABS: ALANINE AMINOTRANSFERASE 23.9 U/L (0-35); ALBUMIN 3.61 g/dL (3.5-5.0); ALKALINE PHOSPHATASE 171.9 U/L (53-141); ASPARTATE AMINO TRANSFERASE 29.6 U/L (14-36); BILIRUBIN,TOTAL 0.37 mg/dL (0.2-1.3); BLOOD UREA NITROGEN 33.3 mg/dL (7-17); CALCIUM 10.03 mg/dL (8.4-10.2); CARBON DIOXIDE 29.7 mmol/L (22-30.0); CHLORIDE 97.7 mmol/L (98-107); CREATININE 0.69 mg/dL (0.60-1.30); GLUCOSE 120.4 mg/dL (74-106); POTASSIUM 3.98 mmol/L (3.5-5.1); PROTHROMBIN TIME 22.4 SEC (9.3-11.0); TOTAL PROTEIN 6.85 g/dL (6.3-8.2)
[2020-04-21] MEDS: SYMBICORT 160-4.5 MCG INHALER IH SCH ×2 (08:32→20:43)
[2020-04-21] MEDS: FERROUS SULFATE PO SCH (08:32)
[2020-04-21] MEDS: FLORASTOR PO SCH ×2 (08:32→20:43)
[2020-04-21] MEDS: CLARITIN PO SCH (08:32)
[2020-04-21] MEDS: MUCINEX PO SCH ×2 (08:32→20:42)
[2020-04-21] MEDS: XANAX PO SCH ×3 (08:32→20:43)
[2020-04-21] MEDS: BRIMONIDINE TARTRATE 0.2% OPTH SOL EACHEYE SCH ×2 (08:32→20:43)
[2020-04-21] MEDS: COREG PO SCH ×2 (08:32→16:56)
[2020-04-21] MEDS: MICRO-K CAP PO SCH (08:33)
[2020-04-21] MEDS: ULTRAM PO SCH ×2 (08:33→20:42)
[2020-04-21] MEDS: NICODERM 14 MG TD SCH (08:35)
[2020-04-21] MEDS: MERREM 1 GM/50 ML NACL 1 GM/50 ML BAG IV SCH (08:36)
[2020-04-21] MEDS: SOLU-MEDROL 125 MG IVP SCH ×2 (09:30→20:54)
[2020-04-21] MEDS: GENTAMICIN SULFATE IV SCH (10:11)
[2020-04-21] MEDS: SODIUM CHLORIDE IV SCH (10:11)
[2020-04-21] MEDS: COUMADIN PO SCH (16:56)
[2020-04-21] MEDS: PHENERGAN WITH CODEINE 6.25/10 MG/5 ML PO PRN (20:51)
[2020-04-21] MEDS ORDERED: MERREM 1 GM in SODIUM CHLORIDE 100 ML IV SCH (21:00)
[2020-04-22] MEDS: ATROVENT HFA INHALER (PER PUFF-WITH SPACER) IH SCH ×4 (04:55→19:40)
[2020-04-22] MEDS: VENTOLIN HFA (PER PUFF-WITH SPACER) IH SCH ×4 (04:55→19:40)
[2020-04-22 05:10] LABS: BASOPHILS % (AUTO) 0.2 % (0.0-3.0); HEMATOCRIT 32.4 % (37.0-47.0); HEMOGLOBIN 10.4 g/dl (12.0-16.0); IMMATURE GRANULOCYTE # (AUTO) 0.1 (0.0-1.0); IMMATURE GRANULOCYTE % (AUTO) 1.2 % (0.0-5.0); LYMPHOCYTES # (AUTO) 0.6 K/uL (0.60-3.4); LYMPHOCYTES % (AUTO) 6.1 (10.0-50.0); MEAN CORPUSCULAR HEMOGLOBIN 27.8 pg (27.0-31.0); MEAN CORPUSCULAR HGB CONC 32.1 (31.8-35.4); MEAN CORPUSCULAR VOLUME 86.6 fl (81.0-99.0); MONOCYTES # (AUTO) 0.3 K/uL (0.4-2.0); NEUTROPHILS # (AUTO) 9.1 K/ul (2.0-6.9); NEUTROPHILS % (AUTO) 89.5 % (42.2-75.2); PLATELET COUNT 288 10^3/uL (140-440); RDW COEFFICIENT OF VARIATION 15.6 % (11.6-14.8); RED BLOOD COUNT 3.74 10^6/ul (4.20-5.40); WHITE BLOOD COUNT 10.19 K/ul (4.6-10.2)
[2020-04-22 05:24] LABS: ALANINE AMINOTRANSFERASE 20.9 U/L (0-35); ALKALINE PHOSPHATASE 138.4 U/L (53-141); ASPARTATE AMINO TRANSFERASE 29.5 U/L (14-36); BILIRUBIN,TOTAL 0.38 mg/dL (0.2-1.3); BLOOD UREA NITROGEN 34.5 mg/dL (7-17); CALCIUM 9.36 mg/dL (8.4-10.2); CARBON DIOXIDE 36.5 mmol/L (22-30.0); CHLORIDE 96.4 mmol/L (98-107); CREATININE 0.58 mg/dL (0.60-1.30); GLUCOSE 118.6 mg/dL (74-106); POTASSIUM 4.23 mmol/L (3.5-5.1); SODIUM 133.3 mmol/L (134.5-145); TOTAL PROTEIN 5.79 g/dL (6.3-8.2)
[2020-04-22 05:29] LABS: PROTHROMBIN TIME 15.4 SEC (9.3-11.0)
[2020-04-22] MEDS: PROTONIX PO SCH ×2 (05:34→16:47)
[2020-04-22] MEDS: LASIX TAB PO SCH (05:34)
[2020-04-22] MEDS: SOLU-MEDROL 125 MG IVP SCH ×2 (08:17→20:28)
[2020-04-22] MEDS: SYMBICORT 160-4.5 MCG INHALER IH SCH ×2 (08:35→20:13)
[2020-04-22] MEDS: MUCINEX PO SCH ×2 (08:35→20:12)
[2020-04-22] MEDS: BRIMONIDINE TARTRATE 0.2% OPTH SOL EACHEYE SCH ×2 (08:35→20:13)
[2020-04-22] MEDS: XANAX PO SCH ×3 (08:35→20:12)
[2020-04-22] MEDS: FLORASTOR PO SCH ×2 (08:35→20:12)
[2020-04-22] MEDS: COREG PO SCH ×2 (08:36→16:48)
[2020-04-22] MEDS: ULTRAM PO SCH ×2 (08:36→20:12)
[2020-04-22] MEDS: CLARITIN PO SCH (08:36)
[2020-04-22] MEDS: MERREM 1 GM in SODIUM CHLORIDE 100 ML IV SCH ×3 (08:36→20:12)
[2020-04-22] MEDS: MICRO-K CAP PO SCH (08:36)
[2020-04-22] MEDS: FERROUS SULFATE PO SCH (08:36)
[2020-04-22] MEDS: NICODERM 14 MG TD SCH (08:40)
[2020-04-22] MEDS: GENTAMICIN SULFATE IV SCH (09:55)
[2020-04-22] MEDS: SODIUM CHLORIDE IV SCH (09:55)
[2020-04-22] MEDS: COUMADIN PO SCH (16:48)
[2020-04-22] MEDS: PHENERGAN WITH CODEINE 6.25/10 MG/5 ML PO PRN (20:12)
[2020-04-23] MEDS: VENTOLIN HFA (PER PUFF-WITH SPACER) IH SCH ×4 (05:15→19:45)
[2020-04-23] MEDS: ATROVENT HFA INHALER (PER PUFF-WITH SPACER) IH SCH ×4 (05:15→19:45)
[2020-04-23 05:19] LABS: BASOPHILS % (AUTO) 0.3 % (0.0-3.0); HEMATOCRIT 34.9 % (37.0-47.0); IMMATURE GRANULOCYTE # (AUTO) 0.3 (0.0-1.0); IMMATURE GRANULOCYTE % (AUTO) 2.2 % (0.0-5.0); LYMPHOCYTES # (AUTO) 0.7 K/uL (0.60-3.4); LYMPHOCYTES % (AUTO) 5.7 (10.0-50.0); MEAN CORPUSCULAR HEMOGLOBIN 27.3 pg (27.0-31.0); MEAN CORPUSCULAR HGB CONC 31.5 (31.8-35.4); MEAN CORPUSCULAR VOLUME 86.6 fl (81.0-99.0); MONOCYTES # (AUTO) 0.3 K/uL (0.4-2.0); MONOCYTES % (AUTO) 2.3 (0-10); NEUTROPHILS # (AUTO) 10.5 K/ul (2.0-6.9); NEUTROPHILS % (AUTO) 89.5 % (42.2-75.2); PLATELET COUNT 290 10^3/uL (140-440); RDW COEFFICIENT OF VARIATION 15.7 % (11.6-14.8); RED BLOOD COUNT 4.03 10^6/ul (4.20-5.40); WHITE BLOOD COUNT 11.73 K/ul (4.6-10.2)
[2020-04-23 05:32] LABS: ALANINE AMINOTRANSFERASE 21.6 U/L (0-35); ALBUMIN 2.89 g/dL (3.5-5.0); ALKALINE PHOSPHATASE 139.6 U/L (53-141); ASPARTATE AMINO TRANSFERASE 27.8 U/L (14-36); BILIRUBIN,TOTAL 0.32 mg/dL (0.2-1.3); BLOOD UREA NITROGEN 33.4 mg/dL (7-17); CALCIUM 9.25 mg/dL (8.4-10.2); CARBON DIOXIDE 36.9 mmol/L (22-30.0); CHLORIDE 97.2 mmol/L (98-107); CREATININE 0.8 mg/dL (0.60-1.30); GLUCOSE 130.2 mg/dL (74-106); POTASSIUM 4.08 mmol/L (3.5-5.1); SODIUM 134.4 mmol/L (134.5-145); TOTAL PROTEIN 5.58 g/dL (6.3-8.2)
[2020-04-23 05:37] LABS: PROTHROMBIN TIME 16.5 SEC (9.3-11.0)
[2020-04-23] MEDS: PROTONIX PO SCH ×2 (05:48→16:40)
[2020-04-23] MEDS: LASIX TAB PO SCH (05:48)
[2020-04-23] MEDS: MERREM 1 GM in SODIUM CHLORIDE 100 ML IV SCH ×2 (05:49→21:09)
[2020-04-23] MEDS: SYMBICORT 160-4.5 MCG INHALER IH SCH ×2 (08:03→20:27)
[2020-04-23] MEDS: MUCINEX PO SCH ×2 (08:03→20:26)
[2020-04-23] MEDS: MICRO-K CAP PO SCH (08:03)
[2020-04-23] MEDS: FERROUS SULFATE PO SCH (08:03)
[2020-04-23] MEDS: FLORASTOR PO SCH ×2 (08:03→20:26)
[2020-04-23] MEDS: BRIMONIDINE TARTRATE 0.2% OPTH SOL EACHEYE SCH ×2 (08:03→20:27)
[2020-04-23] MEDS: CLARITIN PO SCH (08:04)
[2020-04-23] MEDS: COREG PO SCH ×2 (08:04→16:40)
[2020-04-23] MEDS: NICODERM 14 MG TD SCH (08:04)
[2020-04-23] MEDS: ULTRAM PO SCH ×2 (08:04→20:26)
[2020-04-23] MEDS: XANAX PO SCH ×3 (08:04→20:26)
[2020-04-23] MEDS: SODIUM CHLORIDE IV SCH (09:44)
[2020-04-23] MEDS: GENTAMICIN SULFATE IV SCH (09:44)
[2020-04-23] MEDS: SOLU-MEDROL 125 MG IVP SCH ×2 (11:10→20:47)
[2020-04-23] MEDS ORDERED: COUMADIN PO SCH ×2 (17:00)
[2020-04-23] MEDS: PHENERGAN WITH CODEINE 6.25/10 MG/5 ML PO PRN (20:27)
[2020-04-24] MEDS: VENTOLIN HFA (PER PUFF-WITH SPACER) IH SCH ×4 (04:35→20:00)
[2020-04-24] MEDS: ATROVENT HFA INHALER (PER PUFF-WITH SPACER) IH SCH ×4 (04:35→20:00)
[2020-04-24 05:26] LABS: HEMATOCRIT 34.6 % (37.0-47.0); HEMOGLOBIN 10.9 g/dl (12.0-16.0); IMMATURE GRANULOCYTE # (AUTO) 0.5 (0.0-1.0); IMMATURE GRANULOCYTE % (AUTO) 4.5 % (0.0-5.0); LYMPHOCYTES # (AUTO) 0.6 K/uL (0.60-3.4); LYMPHOCYTES % (AUTO) 5.8 (10.0-50.0); MEAN CORPUSCULAR HEMOGLOBIN 27.7 pg (27.0-31.0); MEAN CORPUSCULAR HGB CONC 31.5 (31.8-35.4); MEAN CORPUSCULAR VOLUME 87.8 fl (81.0-99.0); MONOCYTES # (AUTO) 0.5 K/uL (0.4-2.0); MONOCYTES % (AUTO) 4.4 (0-10); NEUTROPHILS # (AUTO) 9.2 K/ul (2.0-6.9); NEUTROPHILS % (AUTO) 85.3 % (42.2-75.2); PLATELET COUNT 308 10^3/uL (140-440); RDW COEFFICIENT OF VARIATION 15.8 % (11.6-14.8); RED BLOOD COUNT 3.94 10^6/ul (4.20-5.40); WHITE BLOOD COUNT 10.78 K/ul (4.6-10.2)
[2020-04-24 05:33] LABS: ALANINE AMINOTRANSFERASE 37.6 U/L (0-35); ALBUMIN 3.16 g/dL (3.5-5.0); ALKALINE PHOSPHATASE 186.5 U/L (53-141); ASPARTATE AMINO TRANSFERASE 38.8 U/L (14-36); BILIRUBIN,TOTAL 0.3 mg/dL (0.2-1.3); BLOOD UREA NITROGEN 41.3 mg/dL (7-17); CALCIUM 9.62 mg/dL (8.4-10.2); CARBON DIOXIDE 38.5 mmol/L (22-30.0); CHLORIDE 96.3 mmol/L (98-107); CREATININE 0.84 mg/dL (0.60-1.30); GLUCOSE 125.7 mg/dL (74-106); POTASSIUM 4.63 mmol/L (3.5-5.1); SODIUM 134.9 mmol/L (134.5-145); TOTAL PROTEIN 5.98 g/dL (6.3-8.2)
[2020-04-24 05:34] LABS: PROTHROMBIN TIME 16.9 SEC (9.3-11.0)
[2020-04-24] MEDS: LASIX TAB PO SCH (05:34)
[2020-04-24] MEDS: PROTONIX PO SCH ×2 (05:34→17:09)
[2020-04-24] MEDS: FLORASTOR PO SCH ×2 (08:34→20:01)
[2020-04-24] MEDS: CLARITIN PO SCH (08:34)
[2020-04-24] MEDS: MICRO-K CAP PO SCH (08:34)
[2020-04-24] MEDS: MUCINEX PO SCH ×2 (08:34→20:01)
[2020-04-24] MEDS: XANAX PO SCH ×3 (08:34→20:00)
[2020-04-24] MEDS: COREG PO SCH ×2 (08:35→17:09)
[2020-04-24] MEDS: FERROUS SULFATE PO SCH (08:35)
[2020-04-24] MEDS: PREDNISONE PO SCH ×2 (08:35→17:10)
[2020-04-24] MEDS: ULTRAM PO SCH ×2 (08:35→20:00)
[2020-04-24] MEDS: BRIMONIDINE TARTRATE 0.2% OPTH SOL EACHEYE SCH ×2 (08:35→20:02)
[2020-04-24] MEDS: NICODERM 14 MG TD SCH (08:35)
[2020-04-24] MEDS: SYMBICORT 160-4.5 MCG INHALER IH SCH ×2 (08:35→20:02)
[2020-04-24] MEDS: MERREM 1 GM in SODIUM CHLORIDE 100 ML IV SCH ×2 (08:44→20:02)
[2020-04-24] MEDS: GENTAMICIN SULFATE IV SCH (09:56)
[2020-04-24] MEDS: SODIUM CHLORIDE IV SCH (09:56)
--- NOTE | 2020-04-24 10:01 | PCM.PROG ---
Attending Provider: ATTENDING PROVIDER: Dr. RAISA RACSON This patient is seen with Zuly Henry, Nurse Practitioner. DATE OF SERVICE: 04/24/20 SUBJECTIVE: This 79 year old /WHITE F was hospitalized 04/16/20. The patient is resting comfortably. She has some facial puffiness this morning. BUN is increased slightly. She is encouraged to drink more water today. Still with productive cough with thick sputum. REVIEW OF SYSTEMS: CONSTITUTIONAL: No night sweats. No fatigue, malaise, lethargy. No fever or chills. Weakness. HEENT: Eyes: No visual changes. No eye pain. No eye discharge. ENT: No runny nose. No epistaxis. No sinus pain. No odynophagia. No congestion. RESPIRATORY: Cough, no congestion. No hemoptysis. Shortness of breath. CARDIOVASCULAR: No angina symptoms. No CHF symptoms. No atypical chest pain for CAD. No palpitations. No orthopnea.. GASTROINTESTINAL: No abdominal pain. No nausea or vomiting. No diarrhea or constipation. No hematemesis. No hematochezia. GENITOURINARY: No urgency. No frequency. No dysuria. No hematuria. No obstructive symptoms. No discharge. No pain. No significant abnormal bleeding. MUSCULOSKELETAL: No musculoskeletal pain; no joint swelling. NEUROLOGICAL: Awake, alert, oriented to time, place and person. No headache. No neck pain. No syncope. No seizures. No dizziness. PSYCHIATRIC: Not anxious. No depression. No suicidal thoughts. No homicidal thoughts. SKIN: No rash. No lesions. No wounds. ENDOCRINE: No unexplained weight loss. No weight gain. HEMATOLOGIC/LYMPHATIC: No anemia. No purpura. No petechiae. No prolonged or excessive bleeding. No palpable lymph nodes. PHYSICAL EXAMINATION: GENERAL: The patient is awake, alert and oriented, lying in bed in no distress. VITAL SIGNS: Temperature 97.8 F, Pulse 81, Respiratory Rate 16, BP 143/82, Pulse Ox 97% HEENT: Head normocephalic, atraumatic. Eyes: Extraocular muscles are intact. Pupils are equal, round and reactive to light and accommodation. Ears: No lesions. Nose appeared normal. Throat: No exudate or erythema. NECK: Supple. No JVD, no carotid bruit. No lymphadenopathy or thyromegaly. LUNGS: Diminished breath sounds. Upper airway rhonchi. Clear to auscultation. Percussion note normal. Chest symmetrical. HEART: S1, S2, no S3. No murmurs. No cyanosis or clubbing. No ascites. Pulses: Dorsalis pedis and posterior tibial pulses +1 to +2 both sides. ABDOMEN: Soft. Non-tender. Bowel sounds active. No CVA tenderness. No mass felt. EXTREMITIES: No edema. Full range of motion of all extremities, equal. NEUROLOGIC: No focal deficit. Cranial nerves II through XII are grossly intact. No headache, no double vision or headache. SKIN: Not dry. Intact. Turgor-normal. LYMPHATIC: No palpable lymph nodes/no lymphedema. MUSCULOSKELETAL: Normal joints with no swelling. Muscle tone is normal. LAB REVIEW: 04/24/20 04:55 04/24/20 04:55 04/24/20 04:55: PT 16.9 H, INR 1.58 04/24/20 04:55: Sodium 134.9, Potassium 4.63, Chloride 96.3 L, Carbon Dioxide 38.5 H, Anion Gap 4.73, BUN 41.3 H, Creatinine 0.84, Estimated GFR (MDRD) 66.00, BUN/Creatinine Ratio 49.16, Glucose 125.7 H, Calcium 9.62, Total Bilirubin 0.30, AST 38.8 H, ALT 37.6 H, Alkaline Phosphatase 186.5 H D, Total Protein 5.98 L, Albumin 3.16 L, Globulin 2.82, Albumin/Globulin Ratio 1.12 04/24/20 04:55: WBC 10.78 H, RBC 3.94 L, Hgb 10.9 L, Hct 34.6 L, MCV 87.8, MCH 27.7, MCHC 31.5 L, RDW Coeff of Elie 15.8 H, Plt Count 308, Immature Gran % (Auto) 4.5, Neut % (Auto) 85.3 H, Lymph % (Auto) 5.8 L, [place] % (Auto) 4.4, Eos % (Auto) 0.0, Baso % (Auto) 0.0, Neut # (Auto) 9.2 H, Lymph # (Auto) 0.6, [place] # (Auto) 0.5, Eos # (Auto) 0.0, Baso # (Auto) 0.0, Immature Gran # (Auto) 0.5 ASSESSMENT: Please see below. 1. Bilateral pneumonia 2. Severe COPD 3. Chronic respiratory failure 4. Generalized weakness 5. History of PE PLAN: 1. Prednisone 20mg BID 2. Discontinue Solu-Medrol 3. Coumadin 5mg tonight. Plan and coordination of the patient's care discussed in the presence of Content Strategist and nurse. SCRIBED BY: LEE RODRIGUEZ Glass Production Machine Operator scribed while in presence of service performed by Dr. Rascon/Zuly Henry APRN on 04/24/20 ([id number])
--- NOTE | 2020-04-24 11:11 | PN ---
DATE OF SERVICE: 04/19/20 SUBJECTIVE: The patient was seen and examined with the nurse practitioner. The patient's condition is improved. She is eating much better. She is on Gentamicin and is working well. TIME SPENT: More than 30 minutes. Plan and coordination of the patient's care discussed in the presence of nurse. ANETA
--- NOTE | 2020-04-24 13:01 | PN ---
DATE OF SERVICE: 04/20/20 SUBJECTIVE: The patient was seen and examined with the bertae practitioner. Gentamicin seems to be helping. The patient's appetite has improved. Condition improving. Cardiovascular status stable. Covid negative. TIME SPENT: More than 30 minutes. Plan and coordination of the patient's care discussed in the presence of nurse. ANETA
--- NOTE | 2020-04-24 13:07 | PN ---
DATE OF SERVICE: 04/21/20 SUBJECTIVE: 79-year-old white female hospitalized with pneumonitis, bilateral. The patient has Pseudomonas infection. She has had recurrent pneumonia for the past six months. She has chronic lung disease, end-stage. Steroid and oxygen dependent. REVIEW OF SYSTEMS: CONSTITUTIONAL: No night sweats. No fatigue, malaise, lethargy. No fever or chills. HEENT: Eyes: No visual changes. No eye pain. No eye discharge. ENT: No runny nose. No epistaxis. No sinus pain. No sore throat. No odynophagia. No congestion. RESPIRATORY: No cough, no congestion. No hemoptysis. Shortness of breath on exertion. CARDIOVASCULAR: No angina symptoms. No CHF symptoms. No atypical chest pain for CAD. No palpitations. No PND. No orthopnea. GASTROINTESTINAL: Appetite seems to be improving. No abdominal pain. No nausea or vomiting. No diarrhea or constipation. No hematemesis. No hematochezia. GENITOURINARY: No urgency. No frequency. No dysuria. No hematuria. No obstructive symptoms. No discharge. No pain. No significant abnormal bleeding. MUSCULOSKELETAL: No musculoskeletal pain; no joint swelling. NEUROLOGICAL: No headache. No neck pain. No syncope. No seizures. No dizziness. PSYCHIATRIC: Not anxious. No depression. No suicidal thoughts. No homicidal thoughts. SKIN: No rash. No lesions. No wounds. ENDOCRINE: No unexplained weight loss. No weight gain. HEMATOLOGIC/LYMPHATIC: No anemia. No purpura. No petechiae. No prolonged or excessive bleeding. No palpable lymph nodes. PHYSICAL EXAMINATION: VITAL SIGNS: Temperature 97.9, pulse 78, respiratory rate 16, blood pressure 147/81, pulse ox 95% on 2L. HEENT: Head normocephalic, atraumatic. Eyes: Extraocular muscles are intact. Pupils are equal, round and reactive to light and accommodation. Ears: No lesions. Nose appeared normal. Throat: No exudate or erythema. NECK: Supple. No JVD, no carotid bruit. No lymphadenopathy or thyromegaly. LUNGS: Decreased breath sounds but clear to auscultation. Percussion note normal. Chest symmetrical. HEART: S1, S2, no S3. No murmurs. No cyanosis or clubbing. No ascites. Pulses: Dorsalis pedis and posterior tibial pulses +1 to +2 bilaterally. ABDOMEN: Soft. Nontender. Bowel sounds active. No CVA tenderness. No mass felt. EXTREMITIES: No edema. Full range of motion of all extremities, equal. NEUROLOGIC: No focal deficit. Cranial nerves II through XII are grossly intact. No headache, no double vision or headache. SKIN: Not dry. Intact. Turgor - normal. LYMPHATIC: No palpable lymph nodes/no lymphedema. MUSCULOSKELETAL: Normal joints with no swelling. Muscle tone is normal. LABS: Hemoglobin 12, hematocrit 38, WBC 11,000, normal differential. Creatinine 0.6, BUN 33, potassium 3.9. ASSESSMENT: 1. Pseudomonas pneumonia seems to be responding to Gentamicin and Merrem, both antibiotics along with steroids, nebs. CONDITION: Stable. TIME SPENT: More than 30 minutes. Plan and coordination of the patient's care discussed in the presence of nurse. ANETA
--- NOTE | 2020-04-24 13:14 | PN ---
DATE OF SERVICE: 04/22/2020 SUBJECTIVE: 79 year old white female hospitalized with double pneumonia, pseudomonas pneumonia. REVIEW OF SYSTEMS: CONSTITUTIONAL: No night sweats. The patient still tired and fatigued feeling. No fever or chills. HEENT: Eyes: No visual changes. No eye pain. No eye discharge. ENT: No runny nose. No epistaxis. No sinus pain. No sore throat. No odynophagia. No congestion. RESPIRATORY: No cough, no congestion. No hemoptysis. Shortness of breath on minimal exertion seems to be improving some. CARDIOVASCULAR: No angina symptoms. No CHF symptoms. No atypical chest pain for CAD. No palpitations. No PND. No orthopnea. Appetite has improved some. GASTROINTESTINAL: No abdominal pain. No nausea or vomiting. No diarrhea or constipation. No hematemesis. No hematochezia. GENITOURINARY: No urgency. No frequency. No dysuria. No hematuria. No obstructive symptoms. No discharge. No pain. No significant abnormal bleeding. MUSCULOSKELETAL: No musculoskeletal pain; no joint swelling. NEUROLOGICAL: No headache. No neck pain. No syncope. No seizures. No dizziness. PSYCHIATRIC: Not anxious. No depression. No suicidal thoughts. No homicidal thoughts. SKIN: No rash. No lesions. No wounds. ENDOCRINE: No unexplained weight loss. No weight gain. HEMATOLOGIC/LYMPHATIC: No anemia. No purpura. No petechiae. No prolonged or excessive bleeding. No palpable lymph nodes. PHYSICAL EXAMINATION: VITAL SIGNS: Temperature 98.2, pulse 80, respiratory rate 18, blood pressure 160/74 and pulse ox 97% on 2 liters. HEENT: Head normocephalic, atraumatic. Eyes: Extraocular muscles are intact. Pupils are equal, round and reactive to light and accommodation. Ears: No lesions. Nose appeared normal. Throat: No exudate or erythema. NECK: Supple. No JVD, no carotid bruit. No lymphadenopathy or thyromegaly. LUNGS: Decreased breath sounds but clear to auscultation. Percussion note normal. Chest symmetrical. HEART: S1, S2, no S3. No murmurs. No cyanosis or clubbing. No ascites. Pulses: Dorsalis pedis and posterior tibial pulses +1 to +2 bilaterally. ABDOMEN: Soft. Nontender. Bowel sounds active. No CVA tenderness. No mass felt. EXTREMITIES: No edema. Full range of motion of all extremities, equal. NEUROLOGIC: No focal deficit. Cranial nerves II through XII are grossly intact. No headache, no double vision or headache. SKIN: Not dry. Intact. Turgor - normal. LYMPHATIC: No palpable lymph nodes/no lymphedema. MUSCULOSKELETAL: Normal joints with no swelling. Muscle tone is normal. LABS: hgb 10.4, hct 32, WBC 10,000 normal differential, creatinine 0.5, BUN 34, potassium 4.2 ASSESSMENT: 1. Double pneumonia, pseudomonas recurrent for past 6-12 months 2. Chronic lung disease PLAN: 1. Continue Gentamicin and Merrem 2. Symbicort to be continued 3. Steroids to be continued 4. Continue Pantoprazole, Potassium, Tramadol and Xanax 5. Pulmonary rehab discussed and explained to the patient. The patient is COVID negative. TIME SPENT: More than 30 minutes. Plan and coordination of the patient's care discussed in the presence of nurse. ANETA
[2020-04-24] MEDS ORDERED: COUMADIN PO SCH ×2 (17:00)
[2020-04-24] MEDS: PHENERGAN WITH CODEINE 6.25/10 MG/5 ML PO PRN (20:01)
[2020-04-25] MEDS: ATROVENT HFA INHALER (PER PUFF-WITH SPACER) IH SCH ×4 (04:40→19:50)
[2020-04-25] MEDS: VENTOLIN HFA (PER PUFF-WITH SPACER) IH SCH ×4 (04:40→19:50)
[2020-04-25] MEDS: PROTONIX PO SCH ×2 (05:30→17:21)
[2020-04-25] MEDS: LASIX TAB PO SCH (05:30)
[2020-04-25 05:34] LABS: HEMATOCRIT 35.1 % (37.0-47.0); HEMOGLOBIN 11.2 g/dl (12.0-16.0); MEAN CORPUSCULAR HEMOGLOBIN 27.9 pg (27.0-31.0); MEAN CORPUSCULAR HGB CONC 31.9 (31.8-35.4); MEAN CORPUSCULAR VOLUME 87.3 fl (81.0-99.0); PLATELET COUNT 301 10^3/uL (140-440); RED BLOOD COUNT 4.02 10^6/ul (4.20-5.40)
[2020-04-25 05:39] LABS: ANISOCYTOSIS NOT PRESENT (NOT PRESENT)
[2020-04-25 05:44] LABS: ALANINE AMINOTRANSFERASE 55.2 U/L (0-35); ALBUMIN 3.18 g/dL (3.5-5.0); ALKALINE PHOSPHATASE 183.7 U/L (53-141); ASPARTATE AMINO TRANSFERASE 48.6 U/L (14-36); BILIRUBIN,TOTAL 0.3 mg/dL (0.2-1.3); CALCIUM 9.21 mg/dL (8.4-10.2); CARBON DIOXIDE 38.3 mmol/L (22-30.0); CHLORIDE 95.6 mmol/L (98-107); CREATININE 0.76 mg/dL (0.60-1.30); GLUCOSE 107.6 mg/dL (74-106); POTASSIUM 3.79 mmol/L (3.5-5.1); PROTHROMBIN TIME 23.4 SEC (9.3-11.0); SODIUM 135.5 mmol/L (134.5-145); TOTAL PROTEIN 6.01 g/dL (6.3-8.2)
[2020-04-25] MEDS: MUCINEX PO SCH ×2 (08:42→20:43)
[2020-04-25] MEDS: XANAX PO SCH ×3 (08:42→20:43)
[2020-04-25] MEDS: CLARITIN PO SCH (08:42)
[2020-04-25] MEDS: PREDNISONE PO SCH ×2 (08:42→17:21)
[2020-04-25] MEDS: MICRO-K CAP PO SCH (08:42)
[2020-04-25] MEDS: ULTRAM PO SCH ×2 (08:42→20:43)
[2020-04-25] MEDS: FLORASTOR PO SCH ×2 (08:42→20:43)
[2020-04-25] MEDS: BRIMONIDINE TARTRATE 0.2% OPTH SOL EACHEYE SCH ×2 (08:43→20:44)
[2020-04-25] MEDS: COREG PO SCH ×2 (08:43→17:21)
[2020-04-25] MEDS: NICODERM 14 MG TD SCH (08:43)
[2020-04-25] MEDS: FERROUS SULFATE PO SCH (08:43)
[2020-04-25] MEDS: SODIUM CHLORIDE IV SCH (08:43)
[2020-04-25] MEDS: GENTAMICIN SULFATE IV SCH (08:43)
[2020-04-25] MEDS: SYMBICORT 160-4.5 MCG INHALER IH SCH ×2 (08:44→20:44)
--- NOTE | 2020-04-25 08:49 | PCM.PROG ---
Attending Provider: ATTENDING PROVIDER: Dr. RAISA RASCON This patient is seen with Zuly Henry, Nurse Practitioner. DATE OF SERVICE: 04/25/20 SUBJECTIVE: This 79 year old /WHITE F was hospitalized 04/16/20. The patient is resting comfortably. Slightly more wheezy today after decrease in steroids yesterday. Still with thick productive cough. REVIEW OF SYSTEMS: CONSTITUTIONAL: No night sweats. No fatigue, malaise, lethargy. No fever or chills. Weakness. HEENT: Eyes: No visual changes. No eye pain. No eye discharge. ENT: No runny nose. No epistaxis. No sinus pain. No odynophagia. No congestion. RESPIRATORY: Cough, no congestion. No hemoptysis. Shortness of breath. CARDIOVASCULAR: No angina symptoms. No CHF symptoms. No atypical chest pain for CAD. No palpitations. No orthopnea.. GASTROINTESTINAL: No abdominal pain. No nausea or vomiting. No diarrhea or con stipation. No hematemesis. No hematochezia. GENITOURINARY: No urgency. No frequency. No dysuria. No hematuria. No obstructive symptoms. No discharge. No pain. No significant abnormal bleeding. MUSCULOSKELETAL: No musculoskeletal pain; no joint swelling. NEUROLOGICAL: Awake, alert, oriented to time, place and person. No headache. No neck pain. No syncope. No seizures. No dizziness. PSYCHIATRIC: Not anxious. No depression. No suicidal thoughts. No homicidal thoughts. SKIN: No rash. No lesions. No wounds. ENDOCRINE: No unexplained weight loss. No weight gain. HEMATOLOGIC/LYMPHATIC: No anemia. No purpura. No petechiae. No prolonged or excessive bleeding. No palpable lymph nodes. PHYSICAL EXAMINATION: GENERAL: The patient is awake, alert and oriented,sitting in bed in no distress. VITAL SIGNS: Temperature 98.6 F, Pulse 77, Respiratory Rate 18, BP 159/85, Pulse Ox 98% HEENT: Head normocephalic, atraumatic. Eyes: Extraocular muscles are intact. Pupils are equal, round and reactive to light and accommodation. Ears: No lesions. Nose appeared normal. Throat: No exudate or erythema. NECK: Supple. No JVD, no carotid bruit. No lymphadenopathy or thyromegaly. LUNGS: Diminished breath sounds with faint expiratory wheezing. Clear to auscultation. Percussion note normal. Chest symmetrical. HEART: S1, S2, no S3. No murmurs. No cyanosis or clubbing. No ascites. Pulses: Dorsalis pedis and posterior tibial pulses +1 to +2 both sides. ABDOMEN: Soft. Non-tender. Bowel sounds active. No CVA tenderness. No mass felt. EXTREMITIES: No edema. Full range of motion of all extremities, equal. NEUROLOGIC: No focal deficit. Cranial nerves II through XII are grossly intact. No headache, no double vision or headache. SKIN: Not dry. Intact. Turgor-normal. LYMPHATIC: No palpable lymph nodes/no lymphedema. MUSCULOSKELETAL: Normal joints with no swelling. Muscle tone is normal. LAB REVIEW: 04/25/20 04:38 04/25/20 04:38 04/25/20 04:38: PT 23.4 H D, INR 2.19 04/25/20 04:38: Sodium 135.5, Potassium 3.79, Chloride 95.6 L, Carbon Dioxide 38.3 H, Anion Gap 5.39, BUN 34.0 H, Creatinine 0.76, Estimated GFR (MDRD) 74.00, BUN/Creatinine Ratio 44.73, Glucose 107.6 H, Calcium 9.21, Total Bilirubin 0.30, AST 48.6 H, ALT 55.2 H, Alkaline Phosphatase 183.7 H, Total Protein 6.01 L, Albumin 3.18 L, Globulin 2.83, Albumin/Globulin Ratio 1.12 04/25/20 04:38: WBC 11.30 H, RBC 4.02 L, Hgb 11.2 L, Hct 35.1 L, MCV 87.3, MCH 27.9, MCHC 31.9, RDW Coeff of Elie 16.0 H, Plt Count 301, Neutrophils % (Manual) 83.0 H, Lymphocytes % (Manual) 11.0, Monocytes % (Manual) 6.0, Anisocytosis Not present ASSESSMENT: Please see below. 1. Bilateral pneumonia 2. Severe COPD 3. Chronic respiratory failure 4. Generalized weakness 5. History of PE PLAN: 1. Continue IV antibiotics. Plan and coordination of the patient's care discussed in the presence of Shot Lighter and nurse. SCRIBED BY: Luis REDD scribed while in presence of service performed by Dr. Rascon/Zuly Henry APRN on 04/25/20 ([id number])
[2020-04-25] MEDS: CHLORASEPTIC SPRAY MM PRN (09:15)
[2020-04-25] MEDS: MERREM 1 GM in SODIUM CHLORIDE 100 ML IV SCH (10:02)
[2020-04-25] MEDS: COUMADIN PO SCH (17:21)
[2020-04-25] MEDS: PHENERGAN WITH CODEINE 6.25/10 MG/5 ML PO PRN (21:02)
[2020-04-26] MEDS: VENTOLIN HFA (PER PUFF-WITH SPACER) IH SCH ×4 (04:30→19:20)
[2020-04-26] MEDS: ATROVENT HFA INHALER (PER PUFF-WITH SPACER) IH SCH ×4 (04:30→19:20)
[2020-04-26 05:15] LABS: HEMATOCRIT 36.2 % (37.0-47.0); HEMOGLOBIN 11.5 g/dl (12.0-16.0); MEAN CORPUSCULAR HEMOGLOBIN 27.8 pg (27.0-31.0); MEAN CORPUSCULAR HGB CONC 31.8 (31.8-35.4); MEAN CORPUSCULAR VOLUME 87.7 fl (81.0-99.0); PLATELET COUNT 268 10^3/uL (140-440); RDW COEFFICIENT OF VARIATION 16.1 % (11.6-14.8); RED BLOOD COUNT 4.13 10^6/ul (4.20-5.40); WHITE BLOOD COUNT 9.63 K/ul (4.6-10.2)
[2020-04-26 05:22] LABS: ANISOCYTOSIS NOT PRESENT (NOT PRESENT)
[2020-04-26 05:28] LABS: ALANINE AMINOTRANSFERASE 59.5 U/L (0-35); ALBUMIN 3.28 g/dL (3.5-5.0); ALKALINE PHOSPHATASE 174.1 U/L (53-141); ASPARTATE AMINO TRANSFERASE 43.3 U/L (14-36); BILIRUBIN,TOTAL 0.37 mg/dL (0.2-1.3); BLOOD UREA NITROGEN 29.2 mg/dL (7-17); CALCIUM 9.29 mg/dL (8.4-10.2); CARBON DIOXIDE 37.7 mmol/L (22-30.0); CHLORIDE 95.6 mmol/L (98-107); CREATININE 0.67 mg/dL (0.60-1.30); GLUCOSE 129.2 mg/dL (74-106); POTASSIUM 4.21 mmol/L (3.5-5.1); SODIUM 135.5 mmol/L (134.5-145); TOTAL PROTEIN 6.18 g/dL (6.3-8.2)
[2020-04-26] MEDS: LASIX TAB PO SCH (05:34)
[2020-04-26] MEDS: PROTONIX PO SCH ×2 (05:35→17:02)
[2020-04-26 05:40] LABS: PROTHROMBIN TIME 30.3 SEC (9.3-11.0)
[2020-04-26] MEDS: MICRO-K CAP PO SCH (08:03)
[2020-04-26] MEDS: MUCINEX PO SCH ×2 (08:03→20:11)
[2020-04-26] MEDS: FLORASTOR PO SCH ×2 (08:03→20:11)
[2020-04-26] MEDS: COREG PO SCH ×2 (08:03→17:02)
[2020-04-26] MEDS: PREDNISONE PO SCH ×2 (08:03→17:02)
[2020-04-26] MEDS: FERROUS SULFATE PO SCH (08:03)
[2020-04-26] MEDS: ULTRAM PO SCH ×2 (08:03→20:11)
[2020-04-26] MEDS: CLARITIN PO SCH (08:03)
[2020-04-26] MEDS: XANAX PO SCH ×3 (08:03→20:11)
[2020-04-26] MEDS: BRIMONIDINE TARTRATE 0.2% OPTH SOL EACHEYE SCH ×2 (08:04→20:13)
[2020-04-26] MEDS: SYMBICORT 160-4.5 MCG INHALER IH SCH ×2 (08:04→20:13)
[2020-04-26] MEDS: GENTAMICIN SULFATE IV SCH (08:04)
[2020-04-26] MEDS: SODIUM CHLORIDE IV SCH (08:04)
[2020-04-26] MEDS: NICODERM 14 MG TD SCH (08:04)
[2020-04-26] MEDS: COUMADIN PO SCH (17:02)
[2020-04-26] MEDS: PHENERGAN WITH CODEINE 6.25/10 MG/5 ML PO PRN (20:12)
[2020-04-27] MEDS: VENTOLIN HFA (PER PUFF-WITH SPACER) IH SCH ×3 (05:00→14:11)
[2020-04-27] MEDS: ATROVENT HFA INHALER (PER PUFF-WITH SPACER) IH SCH ×3 (05:00→14:11)
[2020-04-27 05:23] LABS: HEMATOCRIT 34.8 % (37.0-47.0); HEMOGLOBIN 11.2 g/dl (12.0-16.0); MEAN CORPUSCULAR HEMOGLOBIN 28.3 pg (27.0-31.0); MEAN CORPUSCULAR HGB CONC 32.2 (31.8-35.4); MEAN CORPUSCULAR VOLUME 87.9 fl (81.0-99.0); PLATELET COUNT 288 10^3/uL (140-440); RDW COEFFICIENT OF VARIATION 16.3 % (11.6-14.8); RED BLOOD COUNT 3.96 10^6/ul (4.20-5.40); WHITE BLOOD COUNT 11.21 K/ul (4.6-10.2)
[2020-04-27 05:33] LABS: ANISOCYTOSIS NOT PRESENT (NOT PRESENT); PROTHROMBIN TIME 38.8 SEC (9.3-11.0)
[2020-04-27 05:35] LABS: ALANINE AMINOTRANSFERASE 52.1 U/L (0-35); ALBUMIN 3.18 g/dL (3.5-5.0); ALKALINE PHOSPHATASE 165.1 U/L (53-141); ASPARTATE AMINO TRANSFERASE 37.4 U/L (14-36); BILIRUBIN,TOTAL 0.36 mg/dL (0.2-1.3); BLOOD UREA NITROGEN 27.6 mg/dL (7-17); CALCIUM 9.49 mg/dL (8.4-10.2); CARBON DIOXIDE 38.6 mmol/L (22-30.0); CHLORIDE 95.2 mmol/L (98-107); CREATININE 0.66 mg/dL (0.60-1.30); GLUCOSE 100.4 mg/dL (74-106); POTASSIUM 4.28 mmol/L (3.5-5.1); SODIUM 133.9 mmol/L (134.5-145); TOTAL PROTEIN 6.08 g/dL (6.3-8.2)
[2020-04-27] MEDS: LASIX TAB PO SCH (05:39)
[2020-04-27] MEDS: PROTONIX PO SCH (05:40)
--- NOTE | 2020-04-27 09:28 | PCM.PROG ---
Attending Provider: ATTENDING PROVIDER: Dr. RAISA RASCON This patient is seen with Zuly Henry, Nurse Practitioner. DATE OF SERVICE: 04/27/20 SUBJECTIVE: This 79 year old /WHITE F was hospitalized 04/16/20. The patient is resting comfortably. She is still with productive cough. Shortness of breath is somewhat improved. She has been up on her own. REVIEW OF SYSTEMS: CONSTITUTIONAL: No night sweats. No fatigue, malaise, lethargy. No fever or chills. Weakness. HEENT: Eyes: No visual changes. No eye pain. No eye discharge. ENT: No runny nose. No epistaxis. No sinus pain. No odynophagia. No congestion. RESPIRATORY: Cough, no congestion. No hemoptysis. Shortness of breath. CARDIOVASCULAR: No angina symptoms. No CHF symptoms. No atypical chest pain for CAD. No palpitations. No orthopnea.. GASTROINTESTINAL: No abdominal pain. No nausea or vomiting. No diarrhea or constipation. No hematemesis. No hematochezia. GENITOURINARY: No urgency. No frequency. No dysuria. No hematuria. No obstructive symptoms. No discharge. No pain. No significant abnormal bleeding. MUSCULOSKELETAL: No musculoskeletal pain; no joint swelling. NEUROLOGICAL: Awake, alert, oriented to time, place and person. No headache. No neck pain. No syncope. No seizures. No dizziness. PSYCHIATRIC: Not anxious. No depression. No suicidal thoughts. No homicidal thoughts. SKIN: No rash. No lesions. No wounds. ENDOCRINE: No unexplained weight loss. No weight gain. HEMATOLOGIC/LYMPHATIC: No anemia. No purpura. No petechiae. No prolonged or excessive bleeding. No palpable lymph nodes. PHYSICAL EXAMINATION: GENERAL: The patient is awake, alert and oriented, sitting in bed in no distress. VITAL SIGNS: Temperature 98.1 F, Pulse 78, Respiratory Rate 18, BP 151/90, Pulse Ox 100% HEENT: Head normocephalic, atraumatic. Eyes: Extraocular muscles are intact. Pupils are equal, round and reactive to light and accommodation. Ears: No lesions. Nose appeared normal. Throat: No exudate or erythema. NECK: Supple. No JVD, no carotid bruit. No lymphadenopathy or thyromegaly. LUNGS: Diminished breath sounds. Clear to auscultation. Percussion note normal. Chest symmetrical. HEART: S1, S2, no S3. No murmurs. No cyanosis or clubbing. No ascites. Pulses: Dorsalis pedis and posterior tibial pulses +1 to +2 both sides. ABDOMEN: Soft. Non-tender. Bowel sounds active. No CVA tenderness. No mass felt. EXTREMITIES: No edema. Full range of motion of all extremities, equal. NEUROLOGIC: No focal deficit. Cranial nerves II through XII are grossly intact. No headache, no double vision or headache. SKIN: Not dry. Intact. Turgor-normal. LYMPHATIC: No palpable lymph nodes/no lymphedema. MUSCULOSKELETAL: Normal joints with no swelling. Muscle tone is normal. LAB REVIEW: 04/27/20 05:00 04/27/20 05:00 04/27/20 05:00: Sodium 133.9 L, Potassium 4.28, Chloride 95.2 L, Carbon Dioxide 38.6 H, Anion Gap 4.38, BUN 27.6 H, Creatinine 0.66, Estimated GFR (MDRD) 87.00, BUN/Creatinine Ratio 41.81, Glucose 100.4, Calcium 9.49, Total Bilirubin 0.36, AST 37.4 H, ALT 52.1 H, Alkaline Phosphatase 165.1 H, Total Protein 6.08 L, Albumin 3.18 L, Globulin 2.90, Albumin/Globulin Ratio 1.09 04/27/20 05:00: PT 38.8 H D, INR 3.61 04/27/20 05:00: WBC 11.21 H, RBC 3.96 L, Hgb 11.2 L, Hct 34.8 L, MCV 87.9, MCH 28.3, MCHC 32.2, RDW Coeff of Elie 16.3 H, Plt Count 288, Neutrophils % (Manual) 76.0 H, Band Neutrophils % 7.0 H, Lymphocytes % (Manual) 11.0, Monocytes % (Manual) 6.0, Hypersegmented Neuts 4.0 H, Anisocytosis Not present ASSESSMENT: Please see below. 1. Bilateral pneumonia 2. Severe COPD 3. Chronic respiratory failure 4. Generalized weakness 5. History of PE PLAN: 1. Repeat chest x-ray this morning 2. Todays is 10th day of Gentamycin 3. Discharge home today or tomorrow 4. Hold Coumadin 5. We plan to resume [facility] for nursing visits at discharge Plan and coordination of the patient's care discussed in the presence of Associate Professor Of Music and nurse. SCRIBED BY: Zachariah REDDist scribed while in presence of service performed by Dr. Rascon/Zuly Henry APRN on 04/27/20 ([id number])
[2020-04-27] MEDS: FLORASTOR PO SCH (09:41)
[2020-04-27] MEDS: MICRO-K CAP PO SCH (09:42)
[2020-04-27] MEDS: CLARITIN PO SCH (09:42)
[2020-04-27] MEDS: PREDNISONE PO SCH (09:42)
[2020-04-27] MEDS: XANAX PO SCH (09:42)
[2020-04-27] MEDS: MUCINEX PO SCH (09:43)
[2020-04-27] MEDS: ULTRAM PO SCH (09:43)
[2020-04-27] MEDS: FERROUS SULFATE PO SCH (09:43)
[2020-04-27] MEDS: COREG PO SCH (09:43)
[2020-04-27] MEDS: GENTAMICIN SULFATE IV SCH (09:44)
[2020-04-27] MEDS: SODIUM CHLORIDE IV SCH (09:44)
[2020-04-27] MEDS: NICODERM 14 MG TD SCH (09:44)
--- NOTE | 2020-04-27 09:53 | DI ---
EXAM: CHEST FRONTAL AND LATERAL VIEWS HISTORY: Shortness of breath with exertion. COMPARISON: 03/25/2020 FINDINGS: Heart size remains within normal limits. Atherosclerotic disease is present. There are s cattered calcifications suggesting old granulomatous disease. There is diffuse, chronic appearing in terstitial accentuation. Lungs are hyperinflated and there is relative lucency of the lung zones sug gesting pulmonary emphysema. Irregular biapical regions of pleuroparenchymal thickening may be fibro tic in nature and appear stable. No characteristic picture of active congestive heart failure/fluid overload. No definite consolidated pneumonia. Managing the patient on a clinical basis is recommend ed. IMPRESSION: 1. Chronic obstructive pulmonary disease is suggested, correlate clinically. Biapical scarring. No characteristic picture of active congestive heart failure/fluid overload. No definite consolidated pneumonia.
[2020-04-27] MEDS: SYMBICORT 160-4.5 MCG INHALER IH SCH (09:54)
[2020-04-27] MEDS: BRIMONIDINE TARTRATE 0.2% OPTH SOL EACHEYE SCH (09:55)
[2020-04-27] MEDS: CHLORASEPTIC SPRAY MM PRN (09:55)
--- NOTE | 2020-04-27 12:26 | CM.DICTOOL ---
ADMISSION: 04/16/20 17:53 DISCHARGE: April DATE OF SERVICE: 04/27/20 FINAL DIAGNOSIS PNEUMONIA, PERSISTENT (PSEUDOMONAS AERUGINOSA) COPD EXACERBATION HISTORY: CHRONIC RESPIRATORY FAILURE, OXYGEN DEPENDENT COPD, OXYGEN DEPENDENT EMPHYSEMA, SEVERE PER CT PULMONARY FIBROSIS PULMONARY NODULE, FOLLOWED BY DR. 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) HYPERTENSION CHRONIC ANEMIA ANXIETY GERD DEGENERATIVE DISC DISEASE HISTORY OF TOBACCO USE (STOPPED) RECURRENT GOUT COMPRESSION FRACTURE, T9 (STABLE) OSTEOPENIA HYSTERECTOMY APPENDECTOMY CATARACT EXTRACTION, LEFT LAST VITALS Temp Pulse Resp BP Pulse Ox 98.1 F 78 18 151/90 H 96 04/27/20 05:41 04/27/20 05:41 04/27/20 05:41 04/27/20 05:41 04/27/20 10:00 TAKE THESE MEDICATIONS AT HOME Acetaminophen (Acetaminophen 325 Mg Tablet) 650 mg PO Q4H PRN PRN Reason: Pain Alprazolam (Alprazolam 0.25 Mg Tablet) 0.25 mg PO TID [facility] Last Admin: 04/27/20 09:42 Dose: 0.25 mg Documented by: Brimonidine Tartrate (Brimonidine Tartrate 0.2% 5 Ml Btl) 1 drop EACHEYE BID [facility] Last Admin: 04/27/20 09:55 Dose: 1 drop Documented by: Carvedilol (Carvedilol 3.125 Mg Tablet) 3.125 mg PO BIDWM [facility] Last Admin: 04/27/20 09:43 Dose: 3.125 mg Documented by: Ferrous Sulfate (Ferrous Sulfate 324 Mg Tablet.) 324 mg PO DAILYWM [facility] Last Admin: 04/27/20 09:43 Dose: 324 mg Documented by: Furosemide (Furosemide 20 Mg Tablet) 20 mg PO QDAC [facility] Last Admin: 04/27/20 05:39 Dose: 20 mg Documented by: Guaifenesin (Guaifenesin 600 Mg Tablet.Er) 600 mg PO Q12HR [facility] Last Admin: 04/27/20 09:43 Dose: 600 mg Documented by: Ipratropium-Albuterol IH RT TID [facility] Last Admin: Budesonide 0.5 mg IH BID Last Admin: Loratadine (Loratadine 10 Mg Tablet) 10 mg PO DAILY [facility] Last Admin: 04/27/20 09:42 Dose: 10 mg Documented by: Pantoprazole Sodium (Pantoprazole Sodium 40 Mg Tablet.Dr) 40 mg PO BIDAC [facility] Last Admin: 04/27/20 05:40 Dose: 40 mg Documented by: Potassium Chloride (Potassium Chloride 10 Meq Capsule.Er) 10 meq PO DAILYWM [facility] Last Admin: 04/27/20 09:42 Dose: 10 meq Documented by: Prednisone (Prednisone 20 Mg Tablet) 20 mg PO DAILY WM [facility] (TAKE DIRECTED) (RX) Last Admin: 04/27/20 09:42 Dose: 20 mg Documented by: Promethazine HCl/Codeine (Promethazine/Codeine Syrup 6.25/10 Mg/5 Ml Disp.Syri nge) 10 ml PO Q6H PRN (RX) PRN Reason: Cough Last Admin: 04/26/20 20:12 Dose: 10 ml Documented by: Saccharomyces Boulardii (Saccharomyces Boulardii 250 Mg Capsule) 250 mg PO BID [facility] (RX) Last Admin: 04/27/20 09:41 Dose: 250 mg Documented by: Tramadol HCl (Tramadol Hcl 50 Mg Tablet) 50 mg PO BID [facility] Last Admin: 04/27/20 09:43 Dose: 50 mg Documented by: Warfarin Sodium (Warfarin Sodium 3 Mg Tablet) 3 mg PO QPM [facility] Last Admin: 04/26/20 17:02 Dose: 3 mg Documented by: Augmentin 875 mg PO BID for 7 days (RX) ALLERGIES ciprofloxacin [From Cipro] Adverse Reaction (Intermediate, Verified 03/25/20 13:38) acetylcysteine [From Mucomyst] Adverse Reaction (Verified 03/25/20 13:38) hydrocodone Adverse Reaction (Verified 03/25/20 13:38) Abdominal Pain gi cocktail Adverse Reaction (Uncoded 02/28/20 20:24) mucomyst Adverse Reaction (Uncoded 02/28/20 20:24) Head pressure DISCONTINUED MEDICATIONS NONE NEW PRESCRIPTIONS: AUGMENTIN 875 MG BID FOR 7 DAYS (WITH MEALS) PREDNISONE 20 MG DAILY X 5 DAYS, THEN 10 MG DAILY X 5 DAYS, THEN RESUME 5 MG DAILY (WITH MEALS) FLORASTOR 250 MG BID PHENERGAN WITH CODEINE 6.25/10 MG/5 ML TAKE 10 MG Q 6 HOURS PRN SPECIAL INSTRUCTIONS: HOLD COUMADIN (WARFARIN) TODAY (FRIDAY) AND FRIDAY. RESUME COUMADIN ON FRIDAYApr SMOKING: NOT APPLICABLE DISEASE SPECIFIC EDUCATION: OXYGEN USE NEBULIZER FREQUENCY NEW MEDICATIONS APPOINTMENT NUTRITION ACTIVITY LAB REVIEW: 04/27/20 05:00 04/27/20 05:00 04/27/20 05:00: Sodium 133.9 L, Potassium 4.28, Chloride 95.2 L, Carbon Dioxide 38.6 H, Anion Gap 4.38, BUN 27.6 H, Creatinine 0.66, Estimated GFR (MDRD) 87.00, BUN/Creatinine Ratio 41.81, Glucose 100.4, Calcium 9.49, Total Bilirubin 0.36, AST 37.4 H, ALT 52.1 H, Alkaline Phosphatase 165.1 H, Total Protein 6.08 L, Albumin 3.18 L, Globulin 2.90, Albumin/Globulin Ratio 1.09 04/27/20 05:00: PT 38.8 H D, INR 3.61 04/27/20 05:00: WBC 11.21 H, RBC 3.96 L, Hgb 11.2 L, Hct 34.8 L, MCV 87.9, MCH 28.3, MCHC 32.2, RDW Coeff of Elie 16.3 H, Plt Count 288, Neutrophils % (Manual) 76.0 H, Band Neutrophils % 7.0 H, Lymphocytes % (Manual) 11.0, Monocytes % (Manual) 6.0, Hypersegmented Neuts 4.0 H, Anisocytosis Not present PLAN: DISCHARGE HOME DIET: REGULAR ACTIVITY: GRADUALLY RESUME TOLERATED USE OXYGEN CONTINUOUSLY OXYGEN AT 3 LITERS CONTINUOUSLY USE DUONEB 3-4 TIMES DAILY USE BUDESONIDE NEB 2 TIMES DAILY RESUME [facility] FOR NURSING VISITS TO INCLUDE: CARDIOPULMONARY ASSESSMENT, VITAL SIGNS AND OXYGEN SATURATION ALSO TO INCLUDE NUTRITION/SKIN INTEGRITY AND REVIEW OF MEDICATIONS AN APPOINTMENT IS SCHEDULED WITH DR. 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 SHE IS AGREEABLE TO PLANS FOR DISCHARGE HOME TODAY. SHE LIVES AT HOME WITH HER SPOUSE. MRS. STEINBERG IS INDEPENDENT WITH ACTIVITES OF DAILY LIVING, BUT DOES REQUIRE USE OF OXYGEN CONTINUOUSLY AT 3 LITERS. SHE HAS FOR HER USE AT HOME OXYGEN, NEBULIZER, SHOWER CHAIR AND ROLLATOR. SHE HAD [facility] PRIOR TO HER ADMISSION FOR NURSING VISITS ONLY. WE WILL RESUME HOME HEALTH AT DISCHARGE. MRS. STEINBERG IS CONTINENT OF BOWEL AND BLADDER. SHE AMBULATES IN THE ROOM AND TO THE BATHROOM WITH USE OF OXYGEN AND A ROLLATOR. GAIT IS STEADY. SHE IS INDEPEN DENT WITH BED MOBILITY. HYDRATION STATUS IS GOOD WITH MEAL INTAKES OF 40-100%. LIQUID INTAKES ARE GOOD. SKIN IS INTACT, BUT SCATTERED AREAS OF BRUISING ARE NOTED LIKELY DUE TO SKILLED NURSING STEROID USE AND ANTICOAGULANT USE. MD JAZZMINE SMILEY, TOMER
[2020-04-27 13:45] VITALS: BP 129/78; TEMP 98
--- NOTE | 2020-04-27 14:02 | PN ---
DATE OF SERVICE: 04/23/20 SUBJECTIVE: 79-year-old white female hospitalized with recurrent Pseudomonas pneumonia. The patient's condition seems to be improving. For the first time she says she is feeling better now. Appetite has improved. She is less short of breath at rest even. REVIEW OF SYSTEMS: CONSTITUTIONAL: No night sweats. No fatigue, malaise, lethargy. No fever or chills. HEENT: Eyes: No visual changes. No eye pain. No eye discharge. ENT: No runny nose. No epistaxis. No sinus pain. No sore throat. No odynophagia. No congestion. RESPIRATORY: No cough, no congestion. No hemoptysis. CARDIOVASCULAR: Short of breath but less sore than before. No angina symptoms. No CHF symptoms. No atypical chest pain for CAD. No palpitations. No PND. No orthopnea. GASTROINTESTINAL: Appetite seems to have improved. No abdominal pain. No nausea or vomiting. No diarrhea or constipation. No hematemesis. No hematochezia. GENITOURINARY: No urgency. No frequency. No dysuria. No hematuria. No obstructive symptoms. No discharge. No pain. No significant abnormal bleeding. MUSCULOSKELETAL: No musculoskeletal pain; no joint swelling. NEUROLOGICAL: No headache. No neck pain. No syncope. No seizures. No dizziness. PSYCHIATRIC: Not anxious. No depression. No suicidal thoughts. No homicidal thoughts. SKIN: No rash. No lesions. No wounds. ENDOCRINE: No unexplained weight loss. No weight gain. HEMATOLOGIC/LYMPHATIC: No anemia. No purpura. No petechiae. No prolonged or excessive bleeding. No palpable lymph nodes. PHYSICAL EXAMINATION: VITAL SIGNS: Temperature 97, pulse 98, respiratory rate 22, blood pressure 146/90, pulse ox 95%. HEENT: Head normocephalic, atraumatic. Eyes: Extraocular muscles are intact. Pupils are equal, round and reactive to light and accommodation. Ears: No lesions. Nose appeared normal. Throat: No exudate or erythema. NECK: Supple. No JVD, no carotid bruit. No lymphadenopathy or thyromegaly. LUNGS: Decreased breath sounds with mild wheeze. Percussion note normal. Chest symmetrical. HEART: S1, S2, no S3. No murmurs. No cyanosis or clubbing. No ascites. Pulses: Dorsalis pedis and posterior tibial pulses +1 to +2 bilaterally. ABDOMEN: Soft. Nontender. Bowel sounds active. No CVA tenderness. No mass felt. EXTREMITIES: No edema. Full range of motion of all extremities, equal. NEUROLOGIC: No focal deficit. Cranial nerves II through XII are grossly intact. No headache, no double vision or headache. SKIN: Not dry. Intact. Turgor - normal. LYMPHATIC: No palpable lymph nodes/no lymphedema. MUSCULOSKELETAL: Normal joints with no swelling. Muscle tone is normal. LABS: Hemoglobin 11, hematocrit 34, WBC 11,000, normal differential. Creatinine 0.8, BUN 33, potassium 4. The patient's ASSESSMENT: 1. Recurrent Pseudomonas pneumonia with severe chronic lung disease. PLAN: 1. She is to continue Gentamicin and Merrem. 2. Continue nebs, inhalers and steroids. The patient is improving. 3. Advised pulmonary rehab once she gets better. CONDITION: Stable, improving. TIME SPENT: More than 30 minutes. Plan and coordination of the patient's care discussed in the presence of nurse. Addendum: The patient's INR was 1.55 so she was given an extra dose of 3 mg Coumadin. She is usually on 2 mg. MTDD
--- NOTE | 2020-04-27 14:13 | PN ---
DATE OF SERVICE: 04/24/20 SUBJECTIVE: The patient was seen and examined with the nurse practitioner. The patient's condition is improving. She is on Gentamicin, Merrem. Continue the same medication. Pulmonary rehab strongly advised. [facility] pulmonary rehab has been closed. TIME SPENT: More than 30 minutes. Plan and coordination of the patient's care discussed in the presence of nurse. ANETA
--- NOTE | 2020-04-28 11:34 | PN ---
DATE OF SERVICE: 04/27/2020 SUBJECTIVE: The patient was seen and examined with the Nurse Practitioner. The patient is up and about and her condition has improved. She has more air entry in the lungs. No bronchitis recurrent. Pseudomonas pneumonia was treated with Gentamycin and Mirim. She is going to be discharged home on Augmentin. We will see her back in 7 days. TIME SPENT: More than 30 minutes. Plan and coordination of the patient's care discussed in the presence of nurse. ANETA
--- NOTE | 2020-04-28 11:34 | PN ---
04/16/2020: Level 5 04/17/2020: Intermediate 04/18/2020: Intermediate 04/19/2020: Intermediate 04/20/2020: Intermediate 04/21/2020: Intermediate 04/22/2020: Intermediate 04/23/2020: Intermediate 04/24/2019: Intermediate 04/25/2020: Intermediate 04/26/2020: Intermediate 04/27/2020: D as in discharge MTDD
--- NOTE | 2020-05-02 11:40 | DS ---
DATE OF SERVICE: 04/27/1920 FINAL DIAGNOSIS: 1. PNEUMONIA, PERSISTENT (PSEUDOMONAS AERUGINOSA) 2. COPD EXACERBATION HISTORY: 3. CHRONIC RESPIRATORY FAILURE, OXYGEN DEPENDENT 4. COPD, OXYGEN DEPENDENT 5. EMPHYSEMA, SEVERE PER CT 6. PULMONARY FIBROSIS 7. PULMONARY NODULE, FOLLOWED BY DR. OLIVAS 8. DVT (ON COUMADIN) 9. PUMONARY EMBOLI (ON COUMADIN) 10. HYPERTENSION 11. CHRONIC ANEMIA 12. ANXIETY 13. GERD 14. DEGENERATIVE DISC DISEASE 15. HISTORY OF TOBACCO USE (STOPPED) 16. RECURRENT GOUT 17. COMPRESSION FRACTURE, T9 (STABLE) 18. OSTEOPENIA 19. HYSTERECTOMY 20. APPENDECTOMY 21. CATARACT EXTRACTION, LEFT LAST VITALS Temp Pulse Resp BP Pulse Ox 98.1 F 78 18 151/90 H 96 04/27/20 05:41 04/27/20 05:41 04/27/20 05:41 04/27/20 05:41 04/27/20 10:00 DISCHARGE INSTRUCTIONS: 1. DISCHARGE HOME 2. USE OXYGEN AT 3 LITERS CONTINUOUSLY 3. USE DUONEB 3-4 TIMES DAILY 4. USE BUDESONIDE NEB 2 TIMES DAILY 5. RESUME [facility] FOR NURSING VISITS TO INCLUDE: CARDIOPULMONARY ASSESSMENT, VITAL SIGNS AND OXYGEN SATURATION, ALSO TO INCLUDE NUTRITION/SKIN INTEGRITY AND REVIEW OF MEDICATIONS. 6. AN APPOINTMENT IS SCHEDULED WITH DR. RASCON/JAZZMINE CHEW APRN/JANE LYONS APRN ON AT 11:45 AM. MEDICATIONS AT DISCHARGE: Acetaminophen (Acetaminophen 325 Mg Tablet) 650 mg PO Q4H PRN PRN Reason: Pain Alprazolam (Alprazolam 0.25 Mg Tablet) 0.25 mg PO TID [facility] Last Admin: 04/27/20 09:42 Dose: 0.25 mg Documented by: Brimonidine Tartrate (Brimonidine Tartrate 0.2% 5 Ml Btl) 1 drop EACHEYE BID [facility] Last Admin: 04/27/20 09:55 Dose: 1 drop Documented by: Carvedilol (Carvedilol 3.125 Mg Tablet) 3.125 mg PO BIDWM [facility] Last Admin: 04/27/20 09:43 Dose: 3.125 mg Documented by: Ferrous Sulfate (Ferrous Sulfate 324 Mg Tablet.) 324 mg PO DAILYWM [facility] Last Admin: 04/27/20 09:43 Dose: 324 mg Documented by: Furosemide (Furosemide 20 Mg Tablet) 20 mg PO QDAC [facility] Last Admin: 04/27/20 05:39 Dose: 20 mg Documented by: Guaifenesin (Guaifenesin 600 Mg Tablet.Er) 600 mg PO Q12HR [facility] Last Admin: 04/27/20 09:43 Dose: 600 mg Documented by: Ipratropium-Albuterol IH RT TID [facility] Last Admin: Budesonide 0.5 mg IH BID Last Admin: Loratadine (Loratadine 10 Mg Tablet) 10 mg PO DAILY [facility] Last Admin: 04/27/20 09:42 Dose: 10 mg Documented by: Pantoprazole Sodium (Pantoprazole Sodium 40 Mg Tablet.Dr) 40 mg PO BIDAC [facility] Last Admin: 04/27/20 05:40 Dose: 40 mg Documented by: Potassium Chloride (Potassium Chloride 10 Meq Capsule.Er) 10 meq PO DAILYWM [facility] Last Admin: 04/27/20 09:42 Dose: 10 meq Documented by: Prednisone (Prednisone 20 Mg Tablet) 20 mg PO DAILY [facility] (TAKE DIRECTED) (RX) Last Admin: 04/27/20 09:42 Dose: 20 mg Documented by: Promethazine HCl/Codeine (Promethazine/Codeine Syrup 6.25/10 Mg/5 Ml Disp.Syringe) 10 ml PO Q6H PRN (RX) PRN Reason: Cough Last Admin: 04/26/20 20:12 Dose: 10 ml Documented by: Saccharomyces Boulardii (Saccharomyces Boulardii 250 Mg Capsule) 250 mg PO BID [facility] (RX) Last Admin: 04/27/20 09:41 Dose: 250 mg Documented by: Tramadol HCl (Tramadol Hcl 50 Mg Tablet) 50 mg PO BID [facility] Last Admin: 04/27/20 09:43 Dose: 50 mg Documented by: Warfarin Sodium (Warfarin Sodium 3 Mg Tablet) 3 mg PO QPM [facility] Last Admin: 04/26/20 17:02 Dose: 3 mg Documented by: Augmentin 875 mg PO BID for 7 days (RX) NEW PRESCRIPTIONS: AUGMENTIN 875 MG BID FOR 7 DAYS (WITH MEALS) PREDNISONE 20 MG DAILY X 5 DAYS, THEN 10 MG DAILY X 5 DAYS, THEN RESUME 5 MG DAILY (WITH MEALS) FLORASTOR 250 MG BID PHENERGAN WITH CODEINE 6.25/10 MG/5 ML TAKE 10 MG Q 6 HOURS PRN SPECIAL INSTRUCTIONS: HOLD COUMADIN (WARFARIN) TODAY (FRIDAY) AND FRIDAY. RESUME COUMADIN ON Apr DISCONTINUED MEDICATIONS: NONE DIET INSTRUCTIONS: REGULAR ACTIVITY: GRADUALLY RESUME TOLERATED SMOKING: NOT APPLICABLE DISEASE SPECIFIC EDUCATION: OXYGEN USE NEBULIZER FREQUENCY NEW MEDICATIONS APPOINTMENT NUTRITION ACTIVITY HOSPITAL COURSE: This is a white female we admitted from the emergency room with bilateral pneumonia which appeared to be slightly worse from previous or hadn't cleared up. We did sputum culture which was positive for Pseudomonas which was to be expected as it usually is. However, she had not been treated with Gentamicin before. She was placed on Merrem IV as well as Gentamicin IV and has completed a 10 day course of each. Chest x-ray today shows some mild improvement. Clinically, she has improved. I do believe that a lot of her weakness, shortness of breath she is in denial about her disease process and the severity of her COPD. There is not much room for improvement given the condition of her lungs. She does see Dr. Olivas. She saw him about two weeks ago. There were no new changes there. She will go home. She has nebulizer. She is to continue Albuterol t.i.d., continue her Pulmicort. She will go home on Augmentin 875 b.i.d. for the next 7 days along with Prednisone 20 daily for the next 5 days then she will resume her maintenance dose of Prednisone which I believe was 5 mg p.o. daily. She is to keep her scheduled appointment with Dr. Olivas. We have discussed her prognosis in great detail given the condition of her lungs and her current respiratory status. She will go home. She already has oxygen. ABGs have been stable. She has been afebrile, eating well, up and about in the room doing as well as can be expected. Will discharge her in stable condition. TIME SPENT: More than 60 minutes. ANETA
--- NOTE | 2020-05-02 11:52 | PN ---
DATE OF SERVICE: 04/25/20 SUBJECTIVE: 79-year-old white female admitted with recurrent pneumonia, Pseudomonas. The patient was seen and examined with the nurse practitioner. The patient's condition is improving. Continue Merrem and Gentamicin. TIME SPENT: More than 30 minutes. Plan and coordination of the patient's care discussed in the presence of nurse. ANETA
--- NOTE | 2020-05-02 12:54 | PN ---
DATE OF SERVICE: 04/26/20 SUBJECTIVE: 79-year-old white female hospitalized with recurrent pneumonia, Pseudomonas with severe chronic lung disease which is more or less end-stage. The patient's condition is improved. She is feeling a lot better. She is up and about. She is 99% with 2L. REVIEW OF SYSTEMS: CONSTITUTIONAL: No night sweats. No fatigue, malaise, lethargy. No fever or chills. HEENT: Eyes: No visual changes. No eye pain. No eye discharge. ENT: No runny nose. No epistaxis. No sinus pain. No sore throat. No odynophagia. No congestion. RESPIRATORY: No cough, no congestion. No hemoptysis. Shortness of breath but less than before. She is able to exert herself more. CARDIOVASCULAR: No angina symptoms. No CHF symptoms. No atypical chest pain for CAD. No palpitations. No PND. No orthopnea. GASTROINTESTINAL: No abdominal pain. No nausea or vomiting. No diarrhea or constipation. No hematemesis. No hematochezia. GENITOURINARY: No urgency. No frequency. No dysuria. No hematuria. No obstructive symptoms. No discharge. No pain. No significant abnormal bleeding. MUSCULOSKELETAL: No musculoskeletal pain; no joint swelling. NEUROLOGICAL: No headache. No neck pain. No syncope. No seizures. No dizziness. PSYCHIATRIC: Not anxious. No depression. No suicidal thoughts. No homicidal thoughts. SKIN: No rash. No lesions. No wounds. ENDOCRINE: No unexplained weight loss. No weight gain. HEMATOLOGIC/LYMPHATIC: No anemia. No purpura. No petechiae. No prolonged or excessive bleeding. No palpable lymph nodes. PHYSICAL EXAMINATION: VITAL SIGNS: Temperature 98, pulse 82, respiratory rate 20, blood pressure 154/80, pulse ox 99%. HEENT: Head normocephalic, atraumatic. Eyes: Extraocular muscles are intact. Pupils are equal, round and reactive to light and accommodation. Ears: No lesions. Nose appeared normal. Throat: No exudate or erythema. NECK: Supple. No JVD, no carotid bruit. No lymphadenopathy or thyromegaly. LUNGS: Decreased breath sounds but clear to auscultation. Percussion note normal. Chest symmetrical. HEART: S1, S2, no S3. No murmurs. No cyanosis or clubbing. No ascites. Pulses: Dorsalis pedis and posterior tibial pulses +1 to +2 bilaterally. ABDOMEN: Soft. Nontender. Bowel sounds active. No CVA tenderness. No mass felt. EXTREMITIES: No edema. Full range of motion of all extremities, equal. NEUROLOGIC: No focal deficit. Cranial nerves II through XII are grossly intact. No headache, no double vision or headache. SKIN: Not dry. Intact. Turgor - normal. LYMPHATIC: No palpable lymph nodes/no lymphedema. MUSCULOSKELETAL: Normal joints with no swelling. Muscle tone is normal. ASSESSMENT: 1. Recurrent pneumonia, Pseudomonas seems to be improving. Continue Merrem and Gentamicin. 2. The patient's kidney functions are practically normal with creatinine 0.6, BUN 29, GFR 85 cc/min. Condition is otherwise stable. Prognosis is guarded. TIME SPENT: More than 30 minutes. Plan and coordination of the patient's care discussed in the presence of nurse. ANETA
== END 2020-04-27 15:00 | disposition home or self-care (01) | DRG 191 ==
LOC: ED 14:27 → MEDSURG A 17:53
PROVIDERS: ADMIT Internal Medicine; ATTEND Internal Medicine
DX: D64.9 Anemia, unspecified; F41.9 Anxiety disorder, unspecified; J84.10 Pulmonary fibrosis, unspecified; J44.9 Chronic obstructive pulmonary disease, unspecified; M19.90 Unspecified osteoarthritis, unspecified site; E11.9 Type 2 diabetes mellitus without complications; K21.9 Gastro-esophageal reflux disease without esophagitis; J96.10 Chronic respiratory failure, unspecified whether with hypoxia or hypercapnia; B96.5 Pseudomonas (aeruginosa) (mallei) (pseudomallei) as the cause of diseases classified elsewhere; I82.409 Acute embolism and thrombosis of unspecified deep veins of unspecified lower extremity; Z99.81 Dependence on supplemental oxygen; R53.1 Weakness; I10 Essential (primary) hypertension; Z79.01 Long term (current) use of anticoagulants

== ENCOUNTER 2020-05-04 11:36 | Inpatient (IN) ==
--- NOTE | 2020-05-04 11:49 | ED.PDOC ---
General ED Provider: Dr. SERINA FLORES Chief Complaint: Respiratory Complaint Stated Complaint: Severe SOB/progressive worsening since last PM Time Seen by Physician: 11:48 Mode of Arrival: Ambulance Information Source: Patient Exam Limitations: Clinical condition Primary Care Provider: RAISA RASCON Nursing and Triage Documentation Reviewed and Agree: Yes Does patient meet sepsis criteria?: No System Inflammatory Response Syndrome: Not Applicable Sepsis Protocol: For patient's 13 years and over: Temp is 96.8 and below OR 101 and greater Pulse >90 BPM Resp >20/minute Acutely Altered Mental Status Are patient's symptoms suggestive of a new infection, such as: -Pneumonia -Skin, Soft Tissue -Endocarditis -UTI -Bone, Joint Infection -Implantable Device -Acute Abdominal Infection -Wound Infection -Meningitis -Blood Stream Catheter Infection -Unknown Respiratory Complaint Exam Shortness of Air Complaint/Exam Onset/Duration: Last night Symptoms Are: Still present and Worse Timing: Intermittent Initial Severity: Moderate Current Severity: Severe Character: Reports Dyspnea at rest Aggravating: Reports Movement and Recumbent position Alleviating: Reports Oxygen and Upright position Associated Signs and Symptoms: Reports Labored breathing Related History: Reports Similar episode History of Healthcare-Acquired Pneumonia: No and Admit w/in last 30 days Pulmonary Embolism Risk Factors: Reports None Cardiac Risk Factors: Reports None and Smoking Pseudomonas Risk Factors: Reports Chronic Lung Disease, Repeat Antibx in 3 months and Chronic steriod use Tuberculosis Risk Factors: Reports Corticosteriod use Home Oxygen Use: Yes Recent Stress Test: No Recent Echo/LV Function: No Respiratory Distress: Moderate Stridor Present: No Tracheal Deviation: No Subcutaneous Emphysema: No Accessory Muscle Use: No Differential Diagnoses: Airway Obstruction, COPD Exacerbation and Bronchospasm Review of Systems Review Of Systems Constitutional: Reports Weakness and Loss of appetite Eyes: Reports No symptoms Ears, Nose, Mouth, Throat: Reports No symptoms Respiratory: Reports Cough, Short of air and Wheezing Cardiac: Reports No symptoms and Palpitations GI: Reports No symptoms : Reports No symptoms Musculoskeletal: Reports No symptoms, Back pain and Joint pain Skin: Reports No symptoms Neurological: Reports No symptoms Endocrine: Reports No symptoms Hematologic/Lymphatic: Reports No symptoms All Other Systems: Reviewed and Negative FOR[facility]LY [facility] Medical History Arrhythmia Asthma Bronchitis COPD (chronic obstructive pulmonary disease) Hypertension Pneumonia Pulmonary emboli Family History BROTHER No problems noted. Mother COPD (chronic obstructive pulmonary disease) Other Cancer Social History Smoking and tobacco status: Former smoker Substance use type: does not use History of recent travel: No Surgical History History of hysterectomy Female Reproductive History Menstrual Hx Hysterectomy: Yes Hx Tubal Ligation: No Physical Exam Physical Exam Appearance: Reports Ill-appearing, Thin and Cachectic Ill-appearing: Moderate Pain Distress: Moderate Eyes: Reports BETH and EOMI ENT: Reports Ears normal Neck: Supple Respiratory: Reports Airway patent, Breath sounds clear, Breath sounds equal and Respirations nonlabored Cardiovascular: Reports RRR, Pulses normal, No rub and No murmur GI/: Reports Soft, Nontender, No masses, Bowel sounds normal and No Organomegaly Musculoskeletal: Reports Normal strength, ROM intact, No edema and No calf tenderness Skin: Reports Warm, Dry and Pale Neurological: Reports Sensation intact, Motor intact, Reflexes intact, Cranial n erves intact, Alert and Oriented Psychiatric: Reports Affect appropriate and Mood appropriate Interpretation Radiology Interpretation Radiology Interpretation By: Radiologist Exam Interpreted: Portable CXR (Chronic obstructive pulmonary disease. Scatte red scarring. Questionable mild bibasilar infiltrates. Managing the patient on a clinical basis is recommended. ) EKG Interpretation Time of EKG #1: 12:27 Rate: Tachy Rhythm: Sinus Ectopy: None Madeline: Left Interpretation: Sinus tachycardia LVH Physician Notification Case Discussed Physician Notified: Dr Reed case-agrees with admit-orders received Time of Notification: 14:20 Critical Care Note Critical Care Note Total Critical Care Time (mins): 60 Course Course Hematology/Chemistry: 05/18/20 05:26 05/18/20 05:26 Orders, Labs, Meds: Lab Review 05/04/20 05/04/20 05/04/20 11:49 12:03 12:03 WBC 21.63 H RBC 4.51 Hgb 12.8 Hct 39.6 MCV 87.8 MCH 28.4 MCHC 32.3 RDW Coeff of Elie 17.2 H Plt Count 268 Immature Gran % (Auto) 0.9 Neut % (Auto) 88.5 H Lymph % (Auto) 6.0 L [place] % (Auto) 4.2 Eos % (Auto) 0.3 Baso % (Auto) 0.1 Neut # (Auto) 19.1 H Lymph # (Auto) 1.3 [place] # (Auto) 0.9 Eos # (Auto) 0.1 Baso # (Auto) 0.0 Immature Gran # (Auto) 0.2 Puncture Site R brach Base Excess 14.6 H O2 Saturation 91.6 L ABG pH 7.46 H ABG pCO2 54.0 H ABG pO2 59.0 L* ABG HCO3 38.4 H ABG Total CO2 40.1 H [place] Test Y Hemoglobin 1.4 Oxyhemoglobin 90.4 L Carboxyhemoglobin 2.3 H Total Hemoglobin 12.7 O2 Delivery Device Nc Oxygen Liter Flow 3.00 FiO2 % Sodium 134.6 Potassium 4.19 Chloride 91.0 L Carbon Dioxide 36.9 H Anion Gap 10.89 BUN 22.1 H Creatinine 0.92 Estimated GFR (MDRD) 59.00 BUN/Creatinine Ratio 24.02 Glucose 79.1 Calcium 10.19 Total Bilirubin 0.84 AST 37.5 H ALT 43.8 H Alkaline Phosphatase 220.3 H Total Protein 7.62 Albumin 4.04 Globulin 3.58 Albumin/Globulin Ratio 1.12 Adenovirus (PCR) B. pertussis DNA (PCR) B.parapertussis DNA PCR C. pneumoniae DNA (PCR) Coronavirus OC43 (PCR) Coronavirus HKU1 (PCR) Coronavirus 229E (PCR) Coronavirus NL63 (PCR) Human Metapneumovir PCR Influenza Type A (PCR) Influenza B (RT-PCR) M. pneumoniae (PCR) Parainfluenza 1 (PCR) Parainfluenza 2 (PCR) Parainfluenza 3 (PCR) Parainfluenza 4 (PCR) RSV (PCR) Entero/Rhino (PCR) SARS-CoV-2 (PCR) 05/04/20 05/04/20 05/04/20 14:17 14:25 16:03 WBC RBC Hgb Hct MCV MCH MCHC RDW Coeff of Elie Plt Count Immature Gran % (Auto) Neut % (Auto) Lymph % (Auto) [place] % (Auto) Eos % (Auto) Baso % (Auto) Neut # (Auto) Lymph # (Auto) [place] # (Auto) Eos # (Auto) Baso # (Auto) Immature Gran # (Auto) Puncture Site r brachial L rad Base Excess 14.7 H 15.0 H O2 Saturation 98.0 94.2 ABG pH 7.60 H* 7.50 H ABG pCO2 37.0 49.0 H ABG pO2 87.0 65.0 L ABG HCO3 36.3 H 38.2 H ABG Total CO2 37.4 H 39.7 H [place] Test yes Yes Hemoglobin 1.2 1.5 Oxyhemoglobin 95.1 92.4 L Carboxyhemoglobin 2.5 H 2.3 H Total Hemoglobin 11.9 11.2 L O2 Delivery Device vapotherm Vapotherm Oxygen Liter Flow 40.00 30.00 FiO2 % 35.0 35.0 Sodium Potassium Chloride Carbon Dioxide Anion Gap BUN Creatinine Estimated GFR (MDRD) BUN/Creatinine Ratio Glucose Calcium Total Bilirubin AST ALT Alkaline Phosphatase Total Protein Albumin Globulin Albumin/Globulin Ratio Adenovirus (PCR) Not detected B. pertussis DNA (PCR) Not detected B.parapertussis DNA PCR Not detected C. pneumoniae DNA (PCR) Not detected Coronavirus OC43 (PCR) Not detected Coronavirus HKU1 (PCR) Not detected Coronavirus 229E (PCR) Not detected Coronavirus NL63 (PCR) Not detected Human Metapneumovir PCR Not detected Influenza Type A (PCR) Not detected Influenza B (RT-PCR) Not detected M. pneumoniae (PCR) Not detected Parainfluenza 1 (PCR) Not detected Parainfluenza 2 (PCR) Not detected Parainfluenza 3 (PCR) Not detected Parainfluenza 4 (PCR) Not detected RSV (PCR) Not detected Entero/Rhino (PCR) Not detected SARS-CoV-2 (PCR) Not detected Orders Category Date Time Status ADMIT PATIENT INPATIENT .TO SCU (MONITORED BED) ADMISSION 05/04/20 16:59 Completed ABG DRAW REQUEST DAILY@0600 CARDIO 05/05/20 06:00 Completed ABG DRAW REQUEST Routine CARDIO 05/04/20 18:00 Completed ABG DRAW REQUEST Stat CARDIO 05/04/20 11:49 Completed ABG DRAW REQUEST Stat CARDIO 05/04/20 14:30 Completed ABG DRAW REQUEST Stat CARDIO 05/04/20 16:30 Completed EKG-(ED ONLY) Stat CARDIO 05/04/20 11:49 Completed OXYGEN Routine CARDIO 05/04/20 11:49 Completed VAPOTHERM Routine CARDIO 05/04/20 14:16 Completed ACTIVITY .BR with BRP CARE 05/04/20 16:18 Completed BLOOD GLUCOSE MONITORING 0630,1100,1700,2100 CARE 05/04/20 16:20 Completed INTAKE & OUTPUT Q8HR CARE 05/04/20 16:18 Completed INTAKE & OUTPUT Q8HR CARE 05/04/20 16:18 Completed TELEMETRY MONITORING TELE CARE 05/04/20 17:00 Completed VITAL SIGNS Q8HR CARE 05/04/20 16:18 Completed VITAL SIGNS Q8HR CARE 05/04/20 16:18 Completed REGULAR DIET DIETARY 05/04/20 Dinner Completed ABG COOX DAILY@0600 LAB 05/05/20 06:40 Completed ABG COOX Routine LAB 05/04/20 18:00 Completed ABG COOX Stat LAB 05/04/20 11:49 Completed ARTERIAL BLOOD GAS [ABG COOX] Stat LAB 05/04/20 14:17 Completed ARTERIAL BLOOD GAS [ABG COOX] Stat LAB 05/04/20 16:03 Completed BLOOD CULTURE (ED ONLY) Stat LAB 05/04/20 12:03 Completed CBC W/ AUTO DIFF DAILY@0600 LAB 05/05/20 05:25 Completed CBC W/ AUTO DIFF DAILY@0600 LAB 05/06/20 05:20 Completed CBC W/ AUTO DIFF Stat LAB 05/04/20 12:03 Completed CMP [COMPREHENSIVE METABOLIC PANEL] Stat LAB 05/04/20 12:03 Completed COMPREHENSIVE METABOLIC PANEL DAILY@0600 LAB 05/05/20 05:25 Completed COMPREHENSIVE METABOLIC PANEL DAILY@0600 LAB 05/06/20 05:20 Completed RESPIRATORY PANEL 2.1 (PCR) Stat LAB 05/04/20 14:25 Completed Acetaminophen [Tylenol] MEDS 05/04/20 16:17 Discontinued 650 mg PO Q4H PRN Alprazolam [Xanax] MEDS 05/04/20 16:30 Discontinued 0.25 mg PO TID Brimonidine Tartrate [Brimonidine Tartrate 0.2% Opth MEDS 05/04/20 21:00 Discontinued [place]] 1 drop EACHEYE BID Brimonidine [Alphagan P] MEDS 05/04/20 21:00 Discontinued 1 drop EACHEYE BID Carvedilol [Coreg] MEDS 05/04/20 17:00 Discontinued 3.125 mg PO BIDWM Carvedilol [Coreg] MEDS 05/04/20 16:11 Discontinued 3.125 mg PO NOW ONE Codeine/Promethazine Syrup [Phenergan with Codeine 6.25 MEDS 05/04/20 16:24 Discontinued /10 mg/5 ml] 10 ml PO Q6H PRN Furosemide [Lasix Tab] MEDS 05/04/20 16:30 Discontinued 20 mg PO QDAC Gentamicin Sulfate 240 mg MEDS 05/04/20 14:45 Discontinued 0.9 % Sodium Chloride [Sodium Chloride] 100 ml IV ONCE Gentamicin Sulfate 280 mg MEDS 05/04/20 14:46 Discontinued 0.9 % Sodium Chloride [Sodium Chloride] 100 ml IV ONCE Gentamicin Sulfate 80 mg MEDS 05/04/20 14:29 Discontinued 0.9 % Sodium Chloride [Sodium Chloride] 50 ml IV ONCE Guaifenesin [Mucinex] MEDS 05/04/20 21:00 Discontinued 600 mg PO Q12HR Hydrocortisone Sod Succ/Pf [Solu-Cortef 100 mg] MEDS 05/04/20 14:15 D iscontinued 100 mg IVP ONCE STA Meropenem 1Gm/NaCl Premix [Merrem 1 gm/50 ml NaCl] MEDS 05/04/20 21:00 Discontinued 1 gm in 50 ml IV Q12HR Morphine Sulfate [Morphine 2 mg/ml Syringe] MEDS 05/04/20 14:26 Discontinued 2 mg IVP ONCE STA Ondansetron HCl/Pf [Zofran 4 mg/2 ml] MEDS 05/04/20 16:17 Discontinued 4 mg IVP Q6H PRN Pantoprazole Sodium [Protonix] MEDS 05/04/20 17:00 Discontinued 40 mg PO BIDAC Potassium Chloride [Micro-K Cap] MEDS 05/05/20 08:30 Discontinued 10 meq PO DAILYWM Sodium Chloride 0.9% [Sodium Chloride] 1,000 ml MEDS 05/04/20 16:23 Discontinued IV NOW Tramadol HCl [Ultram] MEDS 05/04/20 21:00 Discontinued 50 mg PO BID Tramadol HCl [Ultram] MEDS 05/04/20 16:15 Discontinued 50 mg PO ONCE STA Warfarin Sodium [Coumadin] MEDS 05/04/20 17:00 Discontinued 3 mg PO 1700 RESUSCITATION STATUS Routine OTHERS 05/04/20 16:17 Completed CHEST, 1V AP ONLY Stat RADS 05/04/20 12:52 Completed Medications Discontinued Medications Generic Name Dose Route Start Last Admin Trade Name Elisa PRN Reason Stop Dose Admin Acetaminophen 650 mg 05/04/20 16:17 Acetaminophen 325 Mg Tablet PO Q4H PRN Pain Albuterol Sulfate 2 puff 05/04/20 20:00 05/18/20 10:19 Albuterol Sulfate (Ventolin Hfa) 18 Gm 1 Puff With Spacer IH 2 puff RTQID OLVIN Administration Alprazolam 0.25 mg 05/04/20 16:30 05/18/20 09:31 Alprazolam 0.25 Mg Tablet PO 0.25 mg TID OLVIN Administration Brimonidine Tartrate 1 drop 05/04/20 21:00 05/18/20 09:31 Brimonidine Tartrate 0.2% 5 Ml Btl EACHEYE 1 drop BID OLVIN Administration Budesonide/Formoterol Fumarate 2 puff 05/04/20 21:00 05/18/20 09:31 Budesonide/Formoterol Fumarate 160/4.5 Mcg Inhaler IH 2 puff BID OLVIN Administration Carvedilol 3.125 mg 05/04/20 16:11 05/04/20 17:45 Carvedilol 3.125 Mg Tablet PO 05/04/20 16:12 Not Given NOW ONE Carvedilol 3.125 mg 05/04/20 17:00 05/18/20 09:31 Carvedilol 3.125 Mg Tablet PO 3.125 mg BIDWM OLVIN Administration Dexamethasone Sodium Phosphate 4 mg 05/08/20 08:47 05/08/20 09:15 Dexamethasone Sod Phos 4 Mg/Ml Inj IM 05/08/20 08:48 4 mg ONCE STA Administration Ferrous Sulfate 324 mg 05/06/20 09:00 05/18/20 09:31 Ferrous Sulfate 324 Mg Tablet. PO 324 mg DAILY OLVIN Administration Fluconazole 150 mg 05/16/20 09:00 05/18/20 09:31 Fluconazole 150 Mg Tablet PO 150 mg DAILY OLVIN Administration Furosemide 20 mg 05/04/20 16:30 05/18/20 05:45 Furosemide 20 Mg Tablet PO 20 mg QDAC OLVIN Administration Furosemide 20 mg 05/15/20 08:17 05/15/20 10:30 Furosemide Inj 20 Mg/2 Ml Vial IVP 05/15/20 08:18 20 mg ONCE STA Administration Furosemide 20 mg 05/16/20 08:38 05/16/20 09:52 Furosemide Inj 20 Mg/2 Ml Vial IVP 05/16/20 08:39 20 mg ONCE STA Administration Guaifenesin 600 mg 05/04/20 21:00 05/18/20 09:30 Guaifenesin 600 Mg Tablet.Er PO 600 mg Q12HR OLVIN Administration Hydrocortisone Sodium Succinate 100 mg 05/04/20 14:15 05/04/20 14:27 Hydrocortisone Sod Succ/Pf 100 Mg/2 Ml Vial IVP 05/04/20 14:16 100 mg ONCE STA Administration Gentamicin Sulfate 80 mg/ 52 mls @ 100 mls/hr 05/04/20 14:29 05/04/20 16:20 Sodium Chloride IV 05/04/20 15:00 Not Given ONCE STA Gentamicin Sulfate 240 mg/ 106 mls @ 100 mls/hr 05/04/20 14:45 05/04/20 16:20 Sodium Chloride IV 05/04/20 15:48 Not Given ONCE STA Gentamicin Sulfate 280 mg/ 107 mls @ 100 mls/hr 05/04/20 14:46 05/04/20 15:21 Sodium Chloride IV 05/04/20 15:50 100 mls/hr ONCE STA Administration Sodium Chloride 1,000 mls @ 125 mls/hr 05/04/20 16:23 05/04/20 17:08 Sodium Chloride IV 05/05/20 00:22 125 mls/hr NOW ONE Administration Meropenem/Sodium Chloride 1 gm in 50 mls @ 75 mls/hr 05/04/20 21:00 05/04/20 20:35 Merrem 1 Gm/50 Ml Nacl IV 05/07/20 20:59 75 mls/hr Q12HR OLVIN Administration Gentamicin Sulfate 280 mg/ 107 mls @ 100 mls/hr 05/05/20 09:00 05/05/20 09:44 Sodium Chloride IV 05/08/20 08:59 100 mls/hr DAILY OLVIN Administration Tobramycin Sulfate 280 mg/ 107 mls @ 100 mls/hr 05/06/20 09:00 05/13/20 09:00 Sodium Chloride IV 05/15/20 08:59 100 mls/hr DAILY OLVIN Administration Tobramycin Sulfate 240 mg/ 106 mls @ 100 mls/hr 05/14/20 09:00 05/18/20 09:30 Sodium Chloride IV 05/19/20 08:59 100 mls/hr DAILY OLVIN Administration Ipratropium [employer] 2 puff 05/04/20 18:00 Ipratropium [employer] 12.9 Gm Hfa Inhaler Per Puff With Spacer IH RTQ6H OLVIN Ipratropium [employer] 2 puff 05/04/20 20:00 05/18/20 10:19 Ipratropium [employer] 12.9 Gm Hfa Inhaler Per Puff With Spacer IH 2 puff RTQID OLVIN Administration Loratadine 10 mg 05/06/20 09:00 05/18/20 09:31 Loratadine 10 Mg Tablet PO 10 mg DAILY OLVIN Administration Meclizine HCl 25 mg 05/14/20 12:44 05/14/20 12:54 Meclizine Hcl 25 Mg Tablet PO 25 mg TID PRN Administration Vertigo Morphine Sulfate 2 mg 05/04/20 14:26 05/04/20 14:28 Morphine Sulfate 2 Mg/Ml Syringe IVP 05/04/20 14:27 2 mg ONCE STA Administration Non-Formulary Medication 1 drop 05/04/20 21:00 Brimonidine [Alphagan P] EACHEYE BID OLVIN Ondansetron HCl 4 mg 05/04/20 16:17 05/13/20 17:42 Ondansetron Hcl/Pf 4 Mg/2 Ml Sdv IVP 4 mg Q6H PRN Administration Nausea / Vomiting Pantoprazole Sodium 40 mg 05/04/20 17:00 05/18/20 05:45 Pantoprazole Sodium 40 Mg Tablet.Dr PO 40 mg BIDAC OLVIN Administration Potassium Chloride 10 meq 05/05/20 08:30 05/08/20 09:14 Potassium Chloride 10 Meq Capsule.Er PO 10 meq DAILYWM OLVIN Administration Potassium Chloride 10 meq 05/05/20 09:17 05/05/20 09:44 Potassium Chloride 10 Meq Capsule.Er PO 05/05/20 09:18 10 meq ONCE STA Administration Potassium Chloride 20 meq 05/05/20 17:00 05/18/20 09:31 Potassium Chloride 20 Meq Tab PO 20 meq BIDWM OLVIN Administration Prednisone 20 mg 05/05/20 09:30 05/18/20 09:30 Prednisone 20 Mg Tablet PO 20 mg DAILYWM OLVIN Administration Promethazine HCl/Codeine 10 ml 05/04/20 16:24 05/17/20 21:08 Promethazine/Codeine Syrup 6.25/10 Mg/5 Ml Disp.Syringe PO 10 ml Q6H PRN Administration Cough Saccharomyces Boulardii 250 mg 05/05/20 21:00 05/18/20 09:30 Saccharomyces Boulardii 250 Mg Capsule PO 250 mg BID OLVIN Administration Sodium Chloride 1 syr 05/06/20 13:00 05/18/20 13:08 0.9% Sodium Chloride 10 Ml Disp.Syrin IVF Not Given Q8HR OLVIN Tramadol HCl 50 mg 05/04/20 16:15 05/04/20 16:25 Tramadol Hcl 50 Mg Tablet PO 05/04/20 16:16 50 mg ONCE STA Administration Tramadol HCl 50 mg 05/04/20 21:00 05/18/20 09:31 Tramadol Hcl 50 Mg Tablet PO 50 mg BID OLVIN Administration Warfarin Sodium 3 mg 05/04/20 17:00 05/04/20 17:52 Warfarin Sodium 3 Mg Tablet PO 3 mg 1700 OLVIN Administration Warfarin Sodium 3 mg 05/07/20 17:00 05/17/20 18:40 Warfarin Sodium 3 Mg Tablet PO Not Given QPM OLVIN Warfarin Sodium 3 mg 05/09/20 17:00 05/09/20 17:17 Warfarin Sodium 3 Mg Tablet PO 05/09/20 17:01 3 mg ONCE ONE Administration Warfarin Sodium 3 mg 05/17/20 17:45 05/17/20 18:15 Warfarin Sodium 1 Mg Tablet PO 05/17/20 17:46 3 mg ONCE STA Administration Vital Signs: Temp Pulse Resp BP Pulse Ox 05/04/20 14:00 95 05/04/20 13:46 94 L 05/04/20 11:41 97.0 F L 132 H 24 113/86 91 L Discharge Plan Discharge Patient Disposition: ADMITTED INPATIENT Discharge Problem: Acute exacerbation of chronic obstructive pulmonary disease ED Provider: SERINA FLORES Condition: Serious Physician Progress Note: []
[2020-05-04 12:12] LABS: BASOPHILS % (AUTO) 0.1 % (0.0-3.0); EOSINOPHILS # (AUTO) 0.1 K/ul (0.0-0.7); EOSINOPHILS % (AUTO) 0.3 % (0.0-7.0); HEMATOCRIT 39.6 % (37.0-47.0); HEMOGLOBIN 12.8 g/dl (12.0-16.0); IMMATURE GRANULOCYTE # (AUTO) 0.2 (0.0-1.0); IMMATURE GRANULOCYTE % (AUTO) 0.9 % (0.0-5.0); LYMPHOCYTES # (AUTO) 1.3 K/uL (0.60-3.4); MEAN CORPUSCULAR HEMOGLOBIN 28.4 pg (27.0-31.0); MEAN CORPUSCULAR HGB CONC 32.3 (31.8-35.4); MEAN CORPUSCULAR VOLUME 87.8 fl (81.0-99.0); MONOCYTES # (AUTO) 0.9 K/uL (0.4-2.0); MONOCYTES % (AUTO) 4.2 (0-10); NEUTROPHILS # (AUTO) 19.1 K/ul (2.0-6.9); NEUTROPHILS % (AUTO) 88.5 % (42.2-75.2); PLATELET COUNT 268 10^3/uL (140-440); RDW COEFFICIENT OF VARIATION 17.2 % (11.6-14.8); RED BLOOD COUNT 4.51 10^6/ul (4.20-5.40); WHITE BLOOD COUNT 21.63 K/ul (4.6-10.2)
[2020-05-04 12:25] LABS: ALANINE AMINOTRANSFERASE 43.8 U/L (0-35); ALBUMIN 4.04 g/dL (3.5-5.0); ALKALINE PHOSPHATASE 220.3 U/L (53-141); ASPARTATE AMINO TRANSFERASE 37.5 U/L (14-36); BILIRUBIN,TOTAL 0.84 mg/dL (0.2-1.3); BLOOD UREA NITROGEN 22.1 mg/dL (7-17); CALCIUM 10.19 mg/dL (8.4-10.2); CARBON DIOXIDE 36.9 mmol/L (22-30.0); CREATININE 0.92 mg/dL (0.60-1.30); GLUCOSE 79.1 mg/dL (74-106); POTASSIUM 4.19 mmol/L (3.5-5.1); SODIUM 134.6 mmol/L (134.5-145); TOTAL PROTEIN 7.62 g/dL (6.3-8.2)
--- NOTE | 2020-05-04 13:12 | DI ---
EXAM: Frontal chest HISTORY: Shortness of breath FINDINGS: Compared to 04/27/2020. Heart size remains normal. There is at least mild atheroscleroti c disease. There is diffuse, chronic appearing interstitial accentuation. Lungs are hyperinflated a nd there is relative lucency of the lung zones suggesting pulmonary emphysema. There are scattered c alcifications suggesting old granulomatous disease. There is biapical pleural thickening greater on the right. Subtle increased density in the bases is noted which may represent fibrosis. Whether the re is minimal basilar pneumonia is indeterminate. IMPRESSION: 1. Chronic obstructive pulmonary disease. Scattered scarring. Questionable mild bibasilar infiltra aldo. Managing the patient on a clinical basis is recommended.
[2020-05-04] MEDS ORDERED: SOLU-CORTEF 100 MG IVP STA (14:15)
[2020-05-04] MEDS ORDERED: MORPHINE 2 MG/ML SYRINGE IVP STA (14:26)
[2020-05-04] MEDS ORDERED: GENTAMICIN SULFATE 80 MG in SODIUM CHLORIDE 50 ML IV STA (14:29)
[2020-05-04 14:38] LABS: ABG PH 7.46 (7.35-7.45)
[2020-05-04] MEDS ORDERED: GENTAMICIN SULFATE IV STA ×2 (14:45→14:46)
[2020-05-04] MEDS ORDERED: SODIUM CHLORIDE IV STA ×2 (14:45→14:46)
[2020-05-04] MEDS ORDERED: COREG PO ONE (16:11)
[2020-05-04] MEDS ORDERED: ULTRAM PO STA (16:15)
[2020-05-04] MEDS ORDERED: ZOFRAN 4 MG/2 ML IVP PRN (16:17)
[2020-05-04] MEDS ORDERED: TYLENOL PO PRN (16:17)
[2020-05-04] MEDS ORDERED: SODIUM CHLORIDE 1,000 ML IV ONE (16:23)
[2020-05-04] MEDS ORDERED: SODIUM CHLORIDE IV SCH (16:30)
[2020-05-04] MEDS ORDERED: MERREM IV SCH (16:30)
[2020-05-04] MEDS ORDERED: COUMADIN PO SCH (17:00)
[2020-05-04] MEDS: PROTONIX PO SCH (17:04)
[2020-05-04] MEDS: XANAX PO SCH ×2 (17:04→20:36)
[2020-05-04] MEDS: LASIX TAB PO SCH (17:05)
[2020-05-04 17:49] VITALS: BMI 16.5
[2020-05-04] MEDS: COREG PO SCH (17:51)
[2020-05-04] MEDS ORDERED: ATROVENT HFA INHALER (PER PUFF-WITH SPACER) IH SCH (18:00)
[2020-05-04] MEDS ORDERED: PULMICORT 0.5 MG/2 ML NEB SCH (18:00)
[2020-05-04 18:05] LABS: ABG PH 7.49 (7.35-7.45)
[2020-05-04] MEDS: ATROVENT HFA INHALER (PER PUFF-WITH SPACER) IH SCH (19:45)
[2020-05-04] MEDS: VENTOLIN HFA (PER PUFF-WITH SPACER) IH SCH (19:45)
[2020-05-04] MEDS ORDERED: DUONEB NEB SCH (20:00)
[2020-05-04] MEDS: SYMBICORT 160-4.5 MCG INHALER IH SCH (20:35)
[2020-05-04] MEDS: PHENERGAN WITH CODEINE 6.25/10 MG/5 ML PO PRN (20:35)
[2020-05-04] MEDS: BRIMONIDINE TARTRATE 0.2% OPTH SOL EACHEYE SCH (20:35)
[2020-05-04] MEDS: ULTRAM PO SCH (20:36)
[2020-05-04] MEDS: MUCINEX PO SCH (20:36)
[2020-05-04] MEDS ORDERED: BRIMONIDINE 0.1% EACHEYE SCH (21:00)
[2020-05-04] MEDS ORDERED: MERREM 1 GM/50 ML NACL 1 GM/50 ML BAG IV SCH (21:00)
[2020-05-04] MEDS ORDERED: BRIMONIDINE 0.1% OP SCH (21:00)
[2020-05-05] MEDS: ATROVENT HFA INHALER (PER PUFF-WITH SPACER) IH SCH ×4 (04:54→19:45)
[2020-05-05] MEDS: VENTOLIN HFA (PER PUFF-WITH SPACER) IH SCH ×4 (04:54→19:45)
[2020-05-05] MEDS: LASIX TAB PO SCH (05:34)
[2020-05-05] MEDS: PROTONIX PO SCH ×2 (05:34→17:42)
[2020-05-05 05:35] LABS: BASOPHILS % (AUTO) 0.1 % (0.0-3.0); EOSINOPHILS % (AUTO) 0.1 % (0.0-7.0); HEMATOCRIT 31.1 % (37.0-47.0); HEMOGLOBIN 10.2 g/dl (12.0-16.0); IMMATURE GRANULOCYTE # (AUTO) 0.1 (0.0-1.0); IMMATURE GRANULOCYTE % (AUTO) 0.6 % (0.0-5.0); LYMPHOCYTES # (AUTO) 0.9 K/uL (0.60-3.4); LYMPHOCYTES % (AUTO) 6.7 (10.0-50.0); MEAN CORPUSCULAR HEMOGLOBIN 28.7 pg (27.0-31.0); MEAN CORPUSCULAR HGB CONC 32.8 (31.8-35.4); MEAN CORPUSCULAR VOLUME 87.6 fl (81.0-99.0); MONOCYTES # (AUTO) 0.5 K/uL (0.4-2.0); MONOCYTES % (AUTO) 3.7 (0-10); NEUTROPHILS # (AUTO) 12.5 K/ul (2.0-6.9); NEUTROPHILS % (AUTO) 88.8 % (42.2-75.2); PLATELET COUNT 181 10^3/uL (140-440); RDW COEFFICIENT OF VARIATION 17.2 % (11.6-14.8); RED BLOOD COUNT 3.55 10^6/ul (4.20-5.40); WHITE BLOOD COUNT 14.08 K/ul (4.6-10.2)
[2020-05-05 05:47] LABS: ALBUMIN 3.11 g/dL (3.5-5.0); ALKALINE PHOSPHATASE 139.1 U/L (53-141); ASPARTATE AMINO TRANSFERASE 27.6 U/L (14-36); BILIRUBIN,TOTAL 0.64 mg/dL (0.2-1.3); CALCIUM 9.16 mg/dL (8.4-10.2); CARBON DIOXIDE 37.6 mmol/L (22-30.0); CREATININE 0.79 mg/dL (0.60-1.30); GLUCOSE 76.1 mg/dL (74-106); POTASSIUM 3.16 mmol/L (3.5-5.1); SODIUM 132.9 mmol/L (134.5-145); TOTAL PROTEIN 5.99 g/dL (6.3-8.2)
[2020-05-05 05:51] LABS: PROTHROMBIN TIME 37.6 SEC (9.3-11.0)
[2020-05-05 06:48] LABS: ABG PH 7.52 (7.35-7.45)
[2020-05-05] MEDS: SYMBICORT 160-4.5 MCG INHALER IH SCH ×2 (08:54→20:38)
[2020-05-05] MEDS: XANAX PO SCH ×3 (08:54→22:37)
[2020-05-05] MEDS: BRIMONIDINE TARTRATE 0.2% OPTH SOL EACHEYE SCH ×2 (08:54→20:38)
[2020-05-05] MEDS: ULTRAM PO SCH ×2 (08:54→20:38)
[2020-05-05] MEDS: MUCINEX PO SCH ×2 (08:54→20:38)
[2020-05-05] MEDS: COREG PO SCH ×2 (08:54→17:42)
[2020-05-05] MEDS: MICRO-K CAP PO SCH (08:54)
[2020-05-05] MEDS ORDERED: SODIUM CHLORIDE IV SCH (09:00)
[2020-05-05] MEDS ORDERED: GENTAMICIN SULFATE IV SCH (09:00)
[2020-05-05] MEDS ORDERED: MICRO-K CAP PO STA (09:17)
--- NOTE | 2020-05-05 09:25 | PCM.PROG ---
Attending Provider: ATTENDING PROVIDER: Dr. RAISA RASCON DATE OF SERVICE: 05/05/20 SUBJECTIVE: This 79 year old /WHITE F was hospitalized 05/04/20 with acute exacerbation with COPD. The patient has history of persistent pseudomonas pneumonia. REVIEW OF SYSTEMS: CONSTITUTIONAL: No night sweats. No fatigue, malaise, lethargy. No fever or chills. HEENT: Eyes: No visual changes. No eye pain. No eye discharge. ENT: No runny nose. No epistaxis. No sinus pain. No odynophagia. No congestion. RESPIRATORY: Mild cough, no congestion. No hemoptysis. Shortness of breath with exacerbation. CARDIOVASCULAR: No angina symptoms. No CHF symptoms. No atypical chest pain for CAD. No palpitations. No orthopnea.. GASTROINTESTINAL: No abdominal pain. No nausea or vomiting. No diarrhea or constipation. No hematemesis. No hematochezia. Appetite not good. GENITOURINARY: No urgency. No frequency. No dysuria. No hematuria. No obstructive symptoms. No discharge. No pain. No significant abnormal bleeding. MUSCULOSKELETAL: No musculoskeletal pain; no joint swelling. NEUROLOGICAL: Awake, alert, oriented to time, place and person. No headache. No neck pain. No syncope. No seizures. No dizziness. PSYCHIATRIC: Not anxious. No depression. No suicidal thoughts. No homicidal thoughts. SKIN: No rash. No lesions. No wounds. ENDOCRINE: No unexplained weight loss. No weight gain. HEMATOLOGIC/LYMPHATIC: No anemia. No purpura. No petechiae. No prolonged or excessive bleeding. No palpable lymph nodes. PHYSICAL EXAMINATION: GENERAL: The patient is awake, alert and oriented, lying in bed in no distress. VITAL SIGNS: Temperature 98.0 F, Pulse 88, Respiratory Rate 20, BP 114/66, Pulse Ox 93% HEENT: Head normocephalic, atraumatic. Eyes: Extraocular muscles are intact. Pupils are equal, round and reactive to light and accommodation. Ears: No lesions. Nose appeared normal. Throat: No exudate or erythema. NECK: Supple. No JVD, no carotid bruit. No lymphadenopathy or thyromegaly. LUNGS: Decreased breath sounds with mild wheezing. Clear to auscultation. Percussion note normal. Chest symmetrical. HEART: S1, S2, no S3. No murmurs. No cyanosis or clubbing. No ascites. Pulses: Dorsalis pedis and posterior tibial pulses +1 to +2 both sides. ABDOMEN: Soft. Non-tender. Bowel sounds active. No CVA tenderness. No mass felt. EXTREMITIES: No edema. Full range of motion of all extremities, equal. NEUROLOGIC: No focal deficit. Cranial nerves II through XII are grossly intact. No headache, no double vision or headache. SKIN: Warm and dry. Intact. Turgor-normal. LYMPHATIC: No palpable lymph nodes/no lymphedema. MUSCULOSKELETAL: Normal joints with no swelling. Muscle tone is normal. LAB REVIEW: 05/05/20 05:25 05/05/20 05:25 05/05/20 06:40: Puncture Site Rbrach, Base Excess 14.7 H, O2 Saturation 94.3, ABG pH 7.52 H*, ABG pCO2 46.0 H, ABG pO2 64.0 L, ABG HCO3 37.6 H, ABG Total CO2 39.0 H, Milton Test Y, Hemoglobin 1.0, Oxyhemoglobin 91.9 L, Carboxyhemoglobin 3.1 H, Total Hemoglobin 9.8 L, O2 Delivery Device Vapotherm, Oxygen Liter Flow 30.00, FiO2 % 35.0 05/05/20 05:25: PT 37.6 H, INR 3.51 05/05/20 05:25: Sodium 132.9 L, Potassium 3.16 L, Chloride 94.0 L, Carbon Dioxide 37.6 H, Anion Gap 4.46, BUN 18.0 H, Creatinine 0.79, Estimated GFR ( MDRD) 71.00, BUN/Creatinine Ratio 22.78, Glucose 76.1, Calcium 9.16, Total Bilirubin 0.64, AST 27.6, ALT 26.0, Alkaline Phosphatase 139.1 D, Total Protein 5.99 L, Albumin 3.11 L, Globulin 2.88, Albumin/Globulin Ratio 1.07 05/05/20 05:25: WBC 14.08 H D, RBC 3.55 L, Hgb 10.2 L, Hct 31.1 L D, MCV 87.6, MCH 28.7, MCHC 32.8, RDW Coeff of Elie 17.2 H, Plt Count 181 D, Immature Gran % (Auto) 0.6, Neut % (Auto) 88.8 H, Lymph % (Auto) 6.7 L, Blaine % (Auto) 3.7, Eos % (Auto) 0.1, Baso % (Auto) 0.1, Neut # (Auto) 12.5 H, Lymph # (Auto) 0.9, Blaine # (Auto) 0.5, Eos # (Auto) 0.0, Baso # (Auto) 0.0, Immature Gran # (Auto) 0.1 05/04/20 18:00: Puncture Site L rad, Base Excess 14.8 H, O2 Saturation 91.5 L, ABG pH 7.49 H, ABG pCO2 50.0 H, ABG pO2 57.0 L*, ABG HCO3 38.1 H, ABG Total CO2 39.6 H, Milton Test Yes, Hemoglobin 0.7, Oxyhemoglobin 89.1 L, Carboxyhemoglobin 2.9 H, Total Hemoglobin 10.8 L, O2 Delivery Device Vapotherm, Oxygen Liter Flow 30.00, FiO2 % 35.0 05/04/20 16:03: Puncture Site L rad, Base Excess 15.0 H, O2 Saturation 94.2, ABG pH 7.50 H, ABG pCO2 49.0 H, ABG pO2 65.0 L, ABG HCO3 38.2 H, ABG Total CO2 39.7 H, Milton Test Yes, Hemoglobin 1.5, Oxyhemoglobin 92.4 L, Carboxyhemoglobin 2.3 H , Total Hemoglobin 11.2 L, O2 Delivery Device Vapotherm, Oxygen Liter Flow 30 .00, FiO2 % 35.0 05/04/20 14:25: Adenovirus (PCR) Not detected, B. pertussis DNA (PCR) Not detected, B.parapertussis DNA PCR Not detected, C. pneumoniae DNA (PCR) Not detected, Coronavirus OC43 (PCR) Not detected, Coronavirus HKU1 (PCR) Not detected, Coronavirus 229E (PCR) Not detected, Coronavirus NL63 (PCR) Not detected, Human Metapneumovir PCR Not detected, Influenza Type A (PCR) Not detected, Influenza B (RT-PCR) Not detected, M. pneumoniae (PCR) Not detected, Parainfluenza 1 (PCR) Not detected, Parainfluenza 2 (PCR) Not detected, Parainfluenza 3 (PCR) Not detected, Parainfluenza 4 (PCR) Not detected, RSV (PCR) Not detected, Entero/Rhino (PCR) Not detected, SARS-CoV-2 (PCR) Not detected 05/04/20 14:17: Puncture Site r brachial, Base Excess 14.7 H, O2 Saturation 98.0, ABG pH 7.60 H*, ABG pCO2 37.0, ABG pO2 87.0, ABG HCO3 36.3 H, ABG Total CO2 37.4 H, Milton Test yes, Hemoglobin 1.2, Oxyhemoglobin 95.1, Carboxyhemoglobin 2.5 H, Total Hemoglobin 11.9, O2 Delivery Device vapotherm, Oxygen Liter Flow 40.00, FiO2 % 35.0 05/04/20 12:03: Sodium 134.6, Potassium 4.19, Chloride 91.0 L, Carbon Dioxide 36.9 H, Anion Gap 10.89, BUN 22.1 H, Creatinine 0.92, Estimated GFR (MDRD) 59.00, BUN/Creatinine Ratio 24.02, Glucose 79.1, Calcium 10.19, Total Bilirubin 0.84, AST 37.5 H, ALT 43.8 H, Alkaline Phosphatase 220.3 H, Total Protein 7.62, Albumin 4.04, Globulin 3.58, Albumin/Globulin Ratio 1.12 05/04/20 12:03: WBC 21.63 H, RBC 4.51, Hgb 12.8, Hct 39.6, MCV 87.8, MCH 28.4, MCHC 32.3, RDW Coeff of Elie 17.2 H, Plt Count 268, Immature Gran % (Auto) 0.9, Neut % (Auto) 88.5 H, Lymph % (Auto) 6.0 L, Blaine % (Auto) 4.2, Eos % (Auto) 0.3, Baso % (Auto) 0.1, Neut # (Auto) 19.1 H, Lymph # (Auto) 1.3, Blaine # (Auto) 0.9, Eos # (Auto) 0.1, Baso # (Auto) 0.0, Immature Gran # (Auto) 0.2 05/04/20 11:49: Puncture Site R brach, Base Excess 14.6 H, O2 Saturation 91.6 L, ABG pH 7.46 H, ABG pCO2 54.0 H, ABG pO2 59.0 L*, ABG HCO3 38.4 H, ABG Total CO2 40.1 H, Milton Test Y, Hemoglobin 1.4, Oxyhemoglobin 90.4 L, Carboxyhemoglobin 2.3 H, Total Hemoglobin 12.7, O2 Delivery Device Nc, Oxygen Liter Flow 3.00, FiO2 % ASSESSMENT: Please see below. 1. High flow oxygen and keeping saturations around 90-92%. 2. Acute COPD exacerbation 3. History of recurrent pseudomonas pneumonia 4. Severe chronic lung disease 5. Hypertension 6. Anemia PLAN: 1. Continue Gentamicin, Merrem and steroids 2. High flow oxygen 3. The patient has hypokalemia and will placed on 20mew BID Potassium a day. Plan and coordination of the patient's care discussed in the presence of Hide Buyer and nurse. SCRIBED BY: LEE RODRIGUEZ Head Waiter scribed while in presence of service performed by Dr. RAISA RASCON on 05/05/20 ([id number])
--- NOTE | 2020-05-05 09:31 | HP ---
DATE OF SERVICE: 05/04/20 HISTORY OF PRESENT ILLNESS: This is a 79-year-old white female who presents to the emergency room with shortness of breath, weakness, cough. She was recently hospitalized and discharged last week with bilateral pneumonia. PAST MEDICAL HISTORY: Persistent bilateral pneumonia History of pseudomonas per sputum culture which I do believe she is colonized Severe COPD, oxygen and steroid dependent Chronic respiratory failure History of DVT/PE on Coumadin Hypertension Chronic anemia Pulmonary fibrosis Anxiety Osteopenia Former smoker Pulmonary nodules sees Dr. Peterson Anxiety GERD Degenerative disk disease Arthritis of the left shoulder Polyarthritis Recurrent gout T9 compression fracture PAST SURGICAL HISTORY: Hysterectomy Appendectomy Left cataract surgery REVIEW OF SYSTEMS: CONSTITUTIONAL: No night sweats. No fatigue, malaise, lethargy. No fever or chills. HEENT: Eyes: No visual changes. No eye pain. No eye discharge. ENT: No runny nose. No epistaxis. No sinus pain. No sore throat. No odynophagia. No ear pain. No congestion. RESPIRATORY: Cough, shortness of breath, wheezing. No hemoptysis. CARDIOVASCULAR: No angina symptoms. No CHF symptoms. No atypical chest pain for CAD. No palpitations. No PND. No orthopnea. GASTROINTESTINAL: No abdominal pain. No nausea or vomiting. No diarrhea or constipation. No hematemesis. No hematochezia. GENITOURINARY: No urgency. No frequency. No dysuria. No hematuria. No obstructive symptoms. No discharge. No pain. No significant abnormal bleeding. MUSCULOSKELETAL: No musculoskeletal pain. No joint swelling. No arthritis. NEUROLOGICAL: No headache. No neck pain. No syncope. No seizures. No dizziness. PSYCHIATRIC: Not anxious. No depression. No suicidal thoughts. No homicidal thoughts. SKIN: No rash. No lesions. No wounds. ENDOCRINE: No unexplained weight loss. No weight gain. HEMATOLOGIC/LYMPHATIC: No anemia. No purpura. No petechiae. No prolonged or excessive bleeding. No palpable lymph nodes. PERSONAL/FAMILY/SOCIAL HISTORY: She is a former smoker, quit for the past 10 years. She is . Lives at home with her . She is on oxygen. No alcohol or illicit drug use. MEDICATIONS: Alprazolam 0.25 mg p.o. b.i.d. Carvedilol 3.125 mg p.o. b.i.d. with meal Pantoprazole 40 mg p.o. b.i.d. Ferrous Sulfate 325 mg p.o. daily Guaifenesin 600 mg p.o. q.12hr Furosemide 20 mg p.o. q.d. a.c. Tramadol 50 mg p.o. b.i.d. Brimonidine one drop both eyes b.i.d. Acetaminophen 650 mg p.o. q.4h p.r.n. Loratadine 10 mg p.o. daily Budesonide 0.5 mg/2 mL INH b.i.d. Ipratropium-Albuterol 3 mL INH t.i.d. Warfarin 3 mg p.o. q.6 p.m. Potassium Chloride 10 mEq p.o. daily Promethazine-Codeine 10 mL p.o. q.6h p.r.n. Saccharomyces boulardii 250 mg p.o. b.i.d. Prednisone 5 mg p.o. daily ALLERGIES: CIPROFLOXACIN, ACETYLCYSTEINE, HYDROCODONE, (GI COCKTAIL), (MUCOMYST) PHYSICAL EXAMINATION: HEENT: Head normocephalic, atraumatic. Eyes: Extraocular muscles are intact. Pupils are equal, round and reactive to light and accommodation. Ears: No lesions. Nose appeared normal. Throat: No exudate or erythema. NECK: Supple. No JVD, no carotid bruit. No lymphadenopathy or thyromegaly. LUNGS: Diminished breath sounds bilaterally with thick loud rhonchi in upper airways, faint bilateral expiratory wheezing. Percussion note normal. Chest symmetrical. HEART: S1, S2, no S3. No murmur. No cyanosis or clubbing. No ascites. Pulses: Dorsalis pedis and posterior tibial pulses +1 to +2 bilaterally. ABDOMEN: Soft. Nontender. Bowel sounds active. No CVA tenderness. No mass felt. EXTREMITIES: No edema. Full range of motion of all extremities, equal. NEUROLOGIC: No focal deficit. Cranial nerves II through XII are grossly intact. No headache, no double vision or headache. SKIN: Not dry. Intact. Turgor - normal. LYMPHATIC: No palpable lymph nodes/no lymphedema. MUSCULOSKELETAL: Normal joints with no swelling. Muscle tone is normal. LABS/ABGs/IMAGING: Initial ABG on 3L nasal cannula: pH 7.46, pc02 54, p02 59, bicarb 38.4, TC02 40.1, oxygen saturation 91%. Sodium 134, potassium 4.1, BUN 22, creatinine 0.92. AST 37, ALT 43, white count 21,000, hemoglobin 12.8, hematocrit 39.6, platelets 268. Chest x-ray shows COPD, questionable mild bibasilar infiltrates. Respiratory PCR is negative. ASSESSMENT: 1. ACUTE RESPIRATORY FAILURE 2. ACUTE COPD EXACERBATION 3. PERSISTENT BILATERAL PNEUMONIA PLAN: 1. Admit. 2. Place on IV Merrem and Gentamicin. 3. Solu-Cortef 125 mg IV q.8hr. 4. Start on high flow oxygen. 5. Regular diet. 6. ABGs on Vapotherm. 7. Will follow closely. TIME SPENT: More than 70 minutes. MTDD
[2020-05-05] MEDS: PREDNISONE PO SCH (09:44)
--- NOTE | 2020-05-05 11:55 | PN ---
DATE OF SERVICE: 05/04/20 SUBJECTIVE: The patient was seen and examined with the nurse practitioner. History and Physical was done. The patient is admitted with recurrent pneumonia likely Pseudomonas. The patient is going to be on Gentamicin and Meropenem TIME SPENT: More than 30 minutes. Plan and coordination of the patient's care discussed in the presence of nurse. ANETA
[2020-05-05 15:45] LABS: BILIRUBIN,URINE Negative (NEGATIVE); CLARITY,URINE Clear (CLEAR); COLOR,URINE Yellow (YELLOW); GLUCOSE, URINE (UA) Negative (NEGATIVE); KETONES,URINE Negative (NEGATIVE); LEUKOCYTE ESTERASE ,URINE Negative (NEGATIVE); NITRITE,URINE Negative (NEGATIVE); PROTEIN,URINE 2+ (NEGATIVE); URINE, BLOOD 3+ (NEGATIVE); UROBILINOGEN,URINE 0.2 (0.2)
[2020-05-05 15:55] LABS: BACTERIA,URINE 1+ (NOT PRESENT); TRANSITIONAL EPI CELLS,URINE 0-2 (NOT PRESENT); URINE RBC, MICROSCOPIC 20-30 (0-2)
[2020-05-05] MEDS: K-DUR PO SCH (17:42)
[2020-05-05] MEDS: FLORASTOR PO SCH (20:37)
[2020-05-06] MEDS: ATROVENT HFA INHALER (PER PUFF-WITH SPACER) IH SCH ×4 (04:40→20:00)
[2020-05-06] MEDS: VENTOLIN HFA (PER PUFF-WITH SPACER) IH SCH ×4 (04:40→20:00)
[2020-05-06 05:31] LABS: BASOPHILS % (AUTO) 0.1 % (0.0-3.0); EOSINOPHILS % (AUTO) 0.1 % (0.0-7.0); HEMATOCRIT 29.2 % (37.0-47.0); HEMOGLOBIN 9.5 g/dl (12.0-16.0); IMMATURE GRANULOCYTE # (AUTO) 0.1 (0.0-1.0); IMMATURE GRANULOCYTE % (AUTO) 0.6 % (0.0-5.0); LYMPHOCYTES # (AUTO) 1.1 K/uL (0.60-3.4); LYMPHOCYTES % (AUTO) 7.1 (10.0-50.0); MEAN CORPUSCULAR HEMOGLOBIN 27.9 pg (27.0-31.0); MEAN CORPUSCULAR HGB CONC 32.5 (31.8-35.4); MEAN CORPUSCULAR VOLUME 85.9 fl (81.0-99.0); MONOCYTES # (AUTO) 0.6 K/uL (0.4-2.0); MONOCYTES % (AUTO) 3.6 (0-10); NEUTROPHILS # (AUTO) 14.1 K/ul (2.0-6.9); NEUTROPHILS % (AUTO) 88.5 % (42.2-75.2); PLATELET COUNT 164 10^3/uL (140-440); RDW COEFFICIENT OF VARIATION 16.8 % (11.6-14.8); WHITE BLOOD COUNT 15.86 K/ul (4.6-10.2)
[2020-05-06] MEDS: PROTONIX PO SCH ×2 (05:34→17:07)
[2020-05-06] MEDS: LASIX TAB PO SCH (05:35)
[2020-05-06 05:43] LABS: PROTHROMBIN TIME 33.9 SEC (9.3-11.0)
[2020-05-06 05:44] LABS: ALANINE AMINOTRANSFERASE 23.5 U/L (0-35); ALBUMIN 3.04 g/dL (3.5-5.0); ALKALINE PHOSPHATASE 142.9 U/L (53-141); ASPARTATE AMINO TRANSFERASE 27.1 U/L (14-36); BILIRUBIN,TOTAL 0.57 mg/dL (0.2-1.3); BLOOD UREA NITROGEN 15.5 mg/dL (7-17); CALCIUM 9.87 mg/dL (8.4-10.2); CARBON DIOXIDE 33.3 mmol/L (22-30.0); CHLORIDE 95.4 mmol/L (98-107); CREATININE 0.64 mg/dL (0.60-1.30); POTASSIUM 3.68 mmol/L (3.5-5.1); SODIUM 132.8 mmol/L (134.5-145); TOTAL PROTEIN 6.05 g/dL (6.3-8.2)
[2020-05-06] MEDS: MICRO-K CAP PO SCH (09:02)
[2020-05-06] MEDS: FLORASTOR PO SCH ×2 (09:02→20:42)
[2020-05-06] MEDS: MUCINEX PO SCH ×2 (09:02→20:43)
[2020-05-06] MEDS: COREG PO SCH ×2 (09:03→17:06)
[2020-05-06] MEDS: ULTRAM PO SCH ×2 (09:03→20:41)
[2020-05-06] MEDS: PREDNISONE PO SCH (09:03)
[2020-05-06] MEDS: XANAX PO SCH ×3 (09:03→20:42)
[2020-05-06] MEDS: K-DUR PO SCH ×2 (09:03→17:07)
[2020-05-06] MEDS: FERROUS SULFATE PO SCH (09:03)
[2020-05-06] MEDS: CLARITIN PO SCH (09:03)
[2020-05-06] MEDS: BRIMONIDINE TARTRATE 0.2% OPTH SOL EACHEYE SCH ×2 (09:05→20:42)
[2020-05-06] MEDS: SYMBICORT 160-4.5 MCG INHALER IH SCH ×2 (09:06→20:42)
[2020-05-06] MEDS: SODIUM CHLORIDE IV SCH (10:44)
[2020-05-06] MEDS: TOBRAMYCIN SULFATE IV SCH (10:44)
[2020-05-06] MEDS: PHENERGAN WITH CODEINE 6.25/10 MG/5 ML PO PRN (22:45)
[2020-05-07] MEDS: VENTOLIN HFA (PER PUFF-WITH SPACER) IH SCH ×4 (04:50→20:20)
[2020-05-07] MEDS: ATROVENT HFA INHALER (PER PUFF-WITH SPACER) IH SCH ×4 (04:50→20:20)
[2020-05-07 05:20] LABS: BASOPHILS % (AUTO) 0.1 % (0.0-3.0); EOSINOPHILS % (AUTO) 0.2 % (0.0-7.0); IMMATURE GRANULOCYTE # (AUTO) 0.1 (0.0-1.0); IMMATURE GRANULOCYTE % (AUTO) 0.7 % (0.0-5.0); LYMPHOCYTES # (AUTO) 0.9 K/uL (0.60-3.4); LYMPHOCYTES % (AUTO) 7.1 (10.0-50.0); MEAN CORPUSCULAR HGB CONC 32.3 (31.8-35.4); MEAN CORPUSCULAR VOLUME 86.8 fl (81.0-99.0); MONOCYTES # (AUTO) 0.6 K/uL (0.4-2.0); MONOCYTES % (AUTO) 4.6 (0-10); NEUTROPHILS # (AUTO) 11.1 K/ul (2.0-6.9); NEUTROPHILS % (AUTO) 87.3 % (42.2-75.2); PLATELET COUNT 180 10^3/uL (140-440); RDW COEFFICIENT OF VARIATION 16.9 % (11.6-14.8); RED BLOOD COUNT 3.57 10^6/ul (4.20-5.40); WHITE BLOOD COUNT 12.74 K/ul (4.6-10.2)
[2020-05-07 05:34] LABS: ALANINE AMINOTRANSFERASE 21.7 U/L (0-35); ALBUMIN 3.04 g/dL (3.5-5.0); ALKALINE PHOSPHATASE 162.5 U/L (53-141); ASPARTATE AMINO TRANSFERASE 27.4 U/L (14-36); BILIRUBIN,TOTAL 0.4 mg/dL (0.2-1.3); CALCIUM 9.75 mg/dL (8.4-10.2); CARBON DIOXIDE 35.3 mmol/L (22-30.0); CHLORIDE 95.4 mmol/L (98-107); CREATININE 0.76 mg/dL (0.60-1.30); GLUCOSE 126.5 mg/dL (74-106); POTASSIUM 3.7 mmol/L (3.5-5.1); SODIUM 133.5 mmol/L (134.5-145); TOTAL PROTEIN 6.09 g/dL (6.3-8.2)
[2020-05-07 05:39] LABS: PROTHROMBIN TIME 27.8 SEC (9.3-11.0)
[2020-05-07] MEDS: LASIX TAB PO SCH (05:48)
[2020-05-07] MEDS: PROTONIX PO SCH ×2 (05:49→17:03)
[2020-05-07] MEDS: CLARITIN PO SCH (08:27)
[2020-05-07] MEDS: MICRO-K CAP PO SCH (08:27)
[2020-05-07] MEDS: K-DUR PO SCH ×2 (08:27→17:04)
[2020-05-07] MEDS: MUCINEX PO SCH ×2 (08:27→20:11)
[2020-05-07] MEDS: COREG PO SCH ×2 (08:27→17:04)
[2020-05-07] MEDS: FERROUS SULFATE PO SCH (08:27)
[2020-05-07] MEDS: PREDNISONE PO SCH (08:28)
[2020-05-07] MEDS: XANAX PO SCH ×3 (08:28→20:25)
[2020-05-07] MEDS: FLORASTOR PO SCH ×2 (08:28→20:11)
[2020-05-07] MEDS: ULTRAM PO SCH ×2 (08:28→20:11)
[2020-05-07] MEDS: BRIMONIDINE TARTRATE 0.2% OPTH SOL EACHEYE SCH ×2 (08:29→20:11)
[2020-05-07] MEDS: SYMBICORT 160-4.5 MCG INHALER IH SCH ×2 (08:29→20:11)
[2020-05-07] MEDS: SODIUM CHLORIDE IV SCH (08:34)
[2020-05-07] MEDS: TOBRAMYCIN SULFATE IV SCH (08:34)
[2020-05-07] MEDS: COUMADIN PO SCH (17:04)
[2020-05-08] MEDS: VENTOLIN HFA (PER PUFF-WITH SPACER) IH SCH ×4 (04:30→20:20)
[2020-05-08] MEDS: ATROVENT HFA INHALER (PER PUFF-WITH SPACER) IH SCH ×4 (04:30→20:20)
[2020-05-08] MEDS: LASIX TAB PO SCH (05:49)
[2020-05-08] MEDS: PROTONIX PO SCH ×2 (05:49→17:19)
[2020-05-08 05:59] LABS: BASOPHILS % (AUTO) 0.1 % (0.0-3.0); EOSINOPHILS # (AUTO) 0.1 K/ul (0.0-0.7); EOSINOPHILS % (AUTO) 0.8 % (0.0-7.0); HEMATOCRIT 32.9 % (37.0-47.0); HEMOGLOBIN 10.5 g/dl (12.0-16.0); IMMATURE GRANULOCYTE # (AUTO) 0.1 (0.0-1.0); IMMATURE GRANULOCYTE % (AUTO) 0.8 % (0.0-5.0); LYMPHOCYTES # (AUTO) 0.9 K/uL (0.60-3.4); LYMPHOCYTES % (AUTO) 8.9 (10.0-50.0); MEAN CORPUSCULAR HEMOGLOBIN 28.5 pg (27.0-31.0); MEAN CORPUSCULAR HGB CONC 31.9 (31.8-35.4); MEAN CORPUSCULAR VOLUME 89.2 fl (81.0-99.0); MONOCYTES # (AUTO) 0.6 K/uL (0.4-2.0); MONOCYTES % (AUTO) 6.1 (0-10); NEUTROPHILS # (AUTO) 8.6 K/ul (2.0-6.9); NEUTROPHILS % (AUTO) 83.3 % (42.2-75.2); PLATELET COUNT 206 10^3/uL (140-440); RDW COEFFICIENT OF VARIATION 16.9 % (11.6-14.8); RED BLOOD COUNT 3.69 10^6/ul (4.20-5.40); WHITE BLOOD COUNT 10.34 K/ul (4.6-10.2)
[2020-05-08 06:11] LABS: ALANINE AMINOTRANSFERASE 25.5 U/L (0-35); ALBUMIN 3.08 g/dL (3.5-5.0); ALKALINE PHOSPHATASE 173.9 U/L (53-141); ASPARTATE AMINO TRANSFERASE 31.2 U/L (14-36); BILIRUBIN,TOTAL 0.4 mg/dL (0.2-1.3); BLOOD UREA NITROGEN 20.8 mg/dL (7-17); CALCIUM 9.73 mg/dL (8.4-10.2); CARBON DIOXIDE 38.3 mmol/L (22-30.0); CHLORIDE 95.9 mmol/L (98-107); CREATININE 0.78 mg/dL (0.60-1.30); GLUCOSE 86.5 mg/dL (74-106); POTASSIUM 4.36 mmol/L (3.5-5.1); PROTHROMBIN TIME 19.9 SEC (9.3-11.0); SODIUM 134.2 mmol/L (134.5-145); TOTAL PROTEIN 6.23 g/dL (6.3-8.2)
[2020-05-08] MEDS ORDERED: DECADRON IM STA (08:47)
[2020-05-08] MEDS: TOBRAMYCIN SULFATE IV SCH (09:13)
[2020-05-08] MEDS: XANAX PO SCH ×3 (09:13→20:56)
[2020-05-08] MEDS: SODIUM CHLORIDE IV SCH (09:13)
[2020-05-08] MEDS: MICRO-K CAP PO SCH (09:14)
[2020-05-08] MEDS: MUCINEX PO SCH ×2 (09:14→20:56)
[2020-05-08] MEDS: PREDNISONE PO SCH (09:14)
[2020-05-08] MEDS: K-DUR PO SCH ×2 (09:14→17:18)
[2020-05-08] MEDS: ULTRAM PO SCH ×2 (09:14→20:56)
[2020-05-08] MEDS: COREG PO SCH ×2 (09:14→17:19)
[2020-05-08] MEDS: FERROUS SULFATE PO SCH (09:14)
[2020-05-08] MEDS: CLARITIN PO SCH (09:15)
[2020-05-08] MEDS: FLORASTOR PO SCH ×2 (09:15→20:56)
[2020-05-08] MEDS: SYMBICORT 160-4.5 MCG INHALER IH SCH ×2 (09:16→20:57)
[2020-05-08] MEDS: BRIMONIDINE TARTRATE 0.2% OPTH SOL EACHEYE SCH ×2 (09:17→20:57)
--- NOTE | 2020-05-08 09:21 | PCM.PROG ---
Attending Provider: ATTENDING PROVIDER: Dr. RAISA RASCON This patient is seen with Zuly Henry, Nurse Practitioner. DATE OF SERVICE: 05/08/20 SUBJECTIVE: This 79 year old /WHITE F was hospitalized 05/04/20. The patient is not feeling well today. She is weak and short of breath with thick sputum. REVIEW OF SYSTEMS: CONSTITUTIONAL: No night sweats. Fatigue. No fever or chills. Weakness. HEENT: Eyes: No visual changes. No eye pain. No eye discharge. ENT: No runny no se. No epistaxis. No sinus pain. No odynophagia. No congestion. RESPIRATORY: No cough, no congestion. No hemoptysis. Shortness of breath. CARDIOVASCULAR: No angina symptoms. No CHF symptoms. No atypical chest pain for CAD. No palpitations. No orthopnea.. GASTROINTESTINAL: No abdominal pain. No nausea or vomiting. No diarrhea or constipation. No hematemesis. No hematochezia. GENITOURINARY: No urgency. No frequency. No dysuria. No hematuria. No obstructive symptoms. No discharge. No pain. No significant abnormal bleeding. MUSCULOSKELETAL: No musculoskeletal pain; no joint swelling. NEUROLOGICAL: Awake, alert, oriented to time, place and person. No headache. No neck pain. No syncope. No seizures. No dizziness. PSYCHIATRIC: Not anxious. No depression. No suicidal thoughts. No homicidal thoughts. SKIN: No rash. No lesions. No wounds. ENDOCRINE: No unexplained weight loss. No weight gain. HEMATOLOGIC/LYMPHATIC: No anemia. No purpura. No petechiae. No prolonged or excessive bleeding. No palpable lymph nodes. PHYSICAL EXAMINATION: GENERAL: The patient is awake, alert and oriented, lying in bed in no distress. VITAL SIGNS: Temperature 98.5 F, Pulse 94, Respiratory Rate 20, BP 119/63, Pulse Ox 98% HEENT: Head normocephalic, atraumatic. Eyes: Extraocular muscles are intact. Pupils are equal, round and reactive to light and accommodation. Ears: No lesi ons. Nose appeared normal. Throat: No exudate or erythema. NECK: Supple. No JVD, no carotid bruit. No lymphadenopathy or thyromegaly. LUNGS: Severely diminished breath sounds. Clear to auscultation. Percussion note normal. Chest symmetrical. HEART: S1, S2, no S3. No murmurs. No cyanosis or clubbing. No ascites. Pulses: Dorsalis pedis and posterior tibial pulses +1 to +2 both sides. ABDOMEN: Soft. Non-tender. Bowel sounds active. No CVA tenderness. No mass felt. EXTREMITIES: No edema. Full range of motion of all extremities, equal. NEUROLOGIC: No focal deficit. Cranial nerves II through XII are grossly intact. No headache, no double vision or headache. SKIN: Not dry. Intact. Turgor-normal. LYMPHATIC: No palpable lymph nodes/no lymphedema. MUSCULOSKELETAL: Normal joints with no swelling. Muscle tone is normal. LAB REVIEW: 05/08/20 05:45 05/08/20 05:45 05/08/20 05:45: PT 19.9 H D, INR 1.87 05/08/20 05:45: Sodium 134.2 L, Potassium 4.36, Chloride 95.9 L, Carbon Dioxide 38.3 H, Anion Gap 4.36, BUN 20.8 H, Creatinine 0.78, Estimated GFR (MDRD) 72.00, BUN/Creatinine Ratio 26.66, Glucose 86.5, Calcium 9.73, Total Bilirubin 0.40, AST 31.2, ALT 25.5, Alkaline Phosphatase 173.9 H, Total Protein 6.23 L, Albumin 3.08 L, Globulin 3.15, Albumin/Globulin Ratio 0.97 05/08/20 05:45: WBC 10.34 H, RBC 3.69 L, Hgb 10.5 L, Hct 32.9 L, MCV 89.2, MCH 28.5, MCHC 31.9, RDW Coeff of Elie 16.9 H, Plt Count 206, Immature Gran % (Auto) 0.8, Neut % (Auto) 83.3 H, Lymph % (Auto) 8.9 L, Reynolds % (Auto) 6.1, Eos % (Auto) 0.8, Baso % (Auto) 0.1, Neut # (Auto) 8.6 H, Lymph # (Auto) 0.9, Reynolds # (Auto) 0.6, Eos # (Auto) 0.1, Baso # (Auto) 0.0, Immature Gran # (Auto) 0.1 ASSESSMENT: Please see below. 1. Bilateral pneumonia 2. Acute respiratory failure 3. Generalized weakness 4. Severe endstage COPD PLAN: 1.1cc Decadron IM 2. Continue IV antibiotics 3. Prognosis is very poor and patient understands 4. Repeat ABG Plan and coordination of the patient's care discussed in the presence of Bee Farmer and nurse. SCRIBED BY: Luis REDD scribed while in presence of service performed by Dr. Rascon/Zuly Henry APRN on 05/08/20 ([id number])
[2020-05-08 09:28] LABS: ABG PH 7.52 (7.35-7.45)
--- NOTE | 2020-05-08 13:56 | PN ---
DATE OF SERVICE: 05/06/2020 SUBJECTIVE: 79 year old white female hospitalized with acute exacerbation of COPD. The patient's condition seems to be improving. Still short of breath on minimal exertion. REVIEW OF SYSTEMS: CONSTITUTIONAL: No night sweats. No fatigue, malaise, lethargy. No fever or chills. HEENT: Eyes: No visual changes. No eye pain. No eye discharge. ENT: No runny nose. No epistaxis. No sinus pain. No sore throat. No odynophagia. No congestion. RESPIRATORY: No cough, no congestion. No hemoptysis. No shortness of breath. CARDIOVASCULAR: No angina symptoms. No CHF symptoms. No atypical chest pain for CAD. No palpitations. No PND. No orthopnea. GASTROINTESTINAL: No abdominal pain. No nausea or vomiting. No diarrhea or constipation. No hematemesis. No hematochezia. Appetite is still not up to par. GENITOURINARY: No urgency. No frequency. No dysuria. No hematuria. No obstructive symptoms. No discharge. No pain. No significant abnormal bleeding. MUSCULOSKELETAL: No musculoskeletal pain; no joint swelling. NEUROLOGICAL: No headache. No neck pain. No syncope. No seizures. No dizziness. PSYCHIATRIC: Not anxious. No depression. No suicidal thoughts. No homicidal thoughts. SKIN: No rash. No lesions. No wounds. ENDOCRINE: No unexplained weight loss. No weight gain. HEMATOLOGIC/LYMPHATIC: No anemia. No purpura. No petechiae. No prolonged or excessive bleeding. No palpable lymph nodes. PHYSICAL EXAMINATION: VITAL SIGNS: Temperature 98, pulse 83, respiratory rate 20, blood pressure 100/60 and pulse ox 94% on high flow oxygen, 50%. HEENT: Head normocephalic, atraumatic. Eyes: Extraocular muscles are intact. Pupils are equal, round and reactive to light and accommodation. Ears: No lesions. Nose appeared normal. Throat: No exudate or erythema. NECK: Supple. No JVD, no carotid bruit. No lymphadenopathy or thyromegaly. LUNGS: Decreased breath sounds with bilateral wheezing but air entry is better than yesterday. Percussion note normal. Chest symmetrical. HEART: S1, S2, no S3. No murmurs. No cyanosis or clubbing. No ascites. Pulses: Dorsalis pedis and posterior tibial pulses +1 to +2 bilaterally. ABDOMEN: Soft. Nontender. Bowel sounds active. No CVA tenderness. No mass felt. EXTREMITIES: No edema. Full range of motion of all extremities, equal. NEUROLOGIC: No focal deficit. Cranial nerves II through XII are grossly intact. No headache, no double vision or headache. SKIN: Not dry. Intact. Turgor - normal. LYMPHATIC: No palpable lymph nodes/no lymphedema. MUSCULOSKELETAL: Normal joints with no swelling. Muscle tone is normal. LABS: Hgb 9.5, hct 29, WBC 15,000 normal differential, creatinine 0.6, BUN 15, potassium 3.6. ASSESSMENT: 1. Chronic respiratory failure with COPD exacerbation 2. History of recurrent pneumonia, pseudomonas. PLAN: 1. Continue Gentamicin, steroids and NEBS 2. The patient is considering Hospice. The patient has end stage chronic lung disease. TIME SPENT: More than 30 minutes. Plan and coordination of the patient's care discussed in the presence of nurse. ANETA
--- NOTE | 2020-05-08 14:52 | PN ---
DATE OF SERVICE: 05/07/2020 SUBJECTIVE: 79 year old white female hospitalized with acute exacerbation of COPD. The patient has chronic respiratory failure. Her condition is slowly deteriorating but she is feeling better today. She is on Vapotherm with 40% FiO2 keeping the oxygen saturation around 92%. REVIEW OF SYSTEMS: CONSTITUTIONAL: No night sweats. No fatigue, malaise, lethargy. No fever or chills. HEENT: Eyes: No visual changes. No eye pain. No eye discharge. ENT: No runny nose. No epistaxis. No sinus pain. No sore throat. No odynophagia. No congestion. RESPIRATORY: No cough, no congestion. No hemoptysis. Shortness of breath on exertion. CARDIOVASCULAR: No angina symptoms. No CHF symptoms. No atypical chest pain for CAD. No palpitations. No PND. No orthopnea. GASTROINTESTINAL: No abdominal pain. No nausea or vomiting. No diarrhea or constipation. No hematemesis. No hematochezia. Appetite is not that good. GENITOURINARY: No urgency. No frequency. No dysuria. No hematuria. No obstructive symptoms. No discharge. No pain. No significant abnormal bleeding. MUSCULOSKELETAL: No musculoskeletal pain; no joint swelling. NEUROLOGICAL: No headache. No neck pain. No syncope. No seizures. No dizziness. PSYCHIATRIC: Not anxious. No depression. No suicidal thoughts. No homicidal thoughts. SKIN: No rash. No lesions. No wounds. ENDOCRINE: No unexplained weight loss. No weight gain. HEMATOLOGIC/LYMPHATIC: No anemia. No purpura. No petechiae. No prolonged or excessive bleeding. No palpable lymph nodes. PHYSICAL EXAMINATION: VITAL SIGNS: Temperature 97.4, pulse 86, respiratory rate 24, blood pressure 133/78 and pulse ox 98% with Vapotherm. HEENT: Head normocephalic, atraumatic. Eyes: Extraocular muscles are intact. Pupils are equal, round and reactive to light and accommodation. Ears: No lesions. Nose appeared normal. Throat: No exudate or erythema. NECK: Supple. No JVD, no carotid bruit. No lymphadenopathy or thyromegaly. LUNGS: Decreased breath sounds with mild wheezing. Clear to auscultation. Percussion note normal. Chest symmetrical. HEART: S1, S2, no S3. No murmurs. No cyanosis or clubbing. No ascites. Pulses: Dorsalis pedis and posterior tibial pulses +1 to +2 bilaterally. ABDOMEN: Soft. Nontender. Bowel sounds active. No CVA tenderness. No mass felt. EXTREMITIES: No edema. Full range of motion of all extremities, equal. NEUROLOGIC: No focal deficit. Cranial nerves II through XII are grossly intact. No headache, no double vision or headache. SKIN: Not dry. Intact. Turgor - normal. LYMPHATIC: No palpable lymph nodes/no lymphedema. MUSCULOSKELETAL: Normal joints with no swelling. Muscle tone is normal. LABS: Hgb 10, hct 31, WBC 12,000 normal differential, creatinine 0.7, BUN 19, potassium 3.7. ASSESSMENT: 1. Acute exacerbation COPD seems to be stable. 3. PLAN: 1. Condition improving slowly. 2. Continue Vapotherm, steroids and antibiotics 3. Kidney functions are stable. TIME SPENT: More than 30 minutes. Plan and coordination of the patient's care discussed in the presence of nurse. ANETA
[2020-05-08] MEDS: COUMADIN PO SCH (17:19)
[2020-05-08] MEDS: PHENERGAN WITH CODEINE 6.25/10 MG/5 ML PO PRN (21:20)
[2020-05-09] MEDS: ATROVENT HFA INHALER (PER PUFF-WITH SPACER) IH SCH ×4 (04:45→19:40)
[2020-05-09] MEDS: VENTOLIN HFA (PER PUFF-WITH SPACER) IH SCH ×4 (04:45→19:40)
[2020-05-09 05:10] LABS: BASOPHILS % (AUTO) 0.2 % (0.0-3.0); EOSINOPHILS % (AUTO) 0.1 % (0.0-7.0); HEMATOCRIT 31.7 % (37.0-47.0); HEMOGLOBIN 10.4 g/dl (12.0-16.0); IMMATURE GRANULOCYTE # (AUTO) 0.1 (0.0-1.0); IMMATURE GRANULOCYTE % (AUTO) 0.6 % (0.0-5.0); MEAN CORPUSCULAR HEMOGLOBIN 28.8 pg (27.0-31.0); MEAN CORPUSCULAR HGB CONC 32.8 (31.8-35.4); MEAN CORPUSCULAR VOLUME 87.8 fl (81.0-99.0); MONOCYTES # (AUTO) 0.6 K/uL (0.4-2.0); MONOCYTES % (AUTO) 5.6 (0-10); NEUTROPHILS # (AUTO) 9.7 K/ul (2.0-6.9); NEUTROPHILS % (AUTO) 84.5 % (42.2-75.2); PLATELET COUNT 225 10^3/uL (140-440); RDW COEFFICIENT OF VARIATION 16.7 % (11.6-14.8); RED BLOOD COUNT 3.61 10^6/ul (4.20-5.40); WHITE BLOOD COUNT 11.49 K/ul (4.6-10.2)
[2020-05-09 05:21] LABS: ALANINE AMINOTRANSFERASE 42.1 U/L (0-35); ALBUMIN 3.37 g/dL (3.5-5.0); ALKALINE PHOSPHATASE 211.1 U/L (53-141); ASPARTATE AMINO TRANSFERASE 48.1 U/L (14-36); BILIRUBIN,TOTAL 0.35 mg/dL (0.2-1.3); BLOOD UREA NITROGEN 24.6 mg/dL (7-17); CALCIUM 10.34 mg/dL (8.4-10.2); CHLORIDE 92.1 mmol/L (98-107); CREATININE 0.74 mg/dL (0.60-1.30); GLUCOSE 119.5 mg/dL (74-106); POTASSIUM 4.6 mmol/L (3.5-5.1); SODIUM 134.1 mmol/L (134.5-145); TOTAL PROTEIN 6.7 g/dL (6.3-8.2)
[2020-05-09 05:27] LABS: CARBON DIOXIDE 37.3 mmol/L (22-30.0)
[2020-05-09] MEDS: PROTONIX PO SCH ×2 (05:42→17:17)
[2020-05-09] MEDS: LASIX TAB PO SCH (05:42)
[2020-05-09] MEDS: XANAX PO SCH ×3 (08:43→20:13)
[2020-05-09] MEDS: COREG PO SCH ×2 (08:43→17:17)
[2020-05-09] MEDS: K-DUR PO SCH ×2 (08:43→17:17)
[2020-05-09] MEDS: FLORASTOR PO SCH ×2 (08:43→20:12)
[2020-05-09] MEDS: FERROUS SULFATE PO SCH (08:43)
[2020-05-09] MEDS: PREDNISONE PO SCH (08:44)
[2020-05-09] MEDS: TOBRAMYCIN SULFATE IV SCH (08:44)
[2020-05-09] MEDS: ULTRAM PO SCH ×2 (08:44→20:13)
[2020-05-09] MEDS: SYMBICORT 160-4.5 MCG INHALER IH SCH ×2 (08:44→20:13)
[2020-05-09] MEDS: SODIUM CHLORIDE IV SCH (08:44)
[2020-05-09] MEDS: CLARITIN PO SCH (08:44)
[2020-05-09] MEDS: MUCINEX PO SCH ×2 (08:44→20:13)
[2020-05-09] MEDS: BRIMONIDINE TARTRATE 0.2% OPTH SOL EACHEYE SCH ×2 (08:45→20:13)
--- NOTE | 2020-05-09 08:53 | PCM.PROG ---
Attending Provider: ATTENDING PROVIDER: Dr. RAISA RASCON This patient is seen with Zuly Henry, Nurse Practitioner. DATE OF SERVICE: 05/09/20 SUBJECTIVE: This 79 year old /WHITE F was hospitalized 05/04/20. The patient is resting comfortably. She seems less drowsy this morning. She is sating better this morning. We are going wean her from Vapotherm. REVIEW OF SYSTEMS: CONSTITUTIONAL: No night sweats. No fatigue, malaise, lethargy. No fever or chills. Weakness. HEENT: Eyes: No visual changes. No eye pain. No eye discharge. ENT: No runny nose. No epistaxis. No sinus pain. No odynophagia. No congestion. RESPIRATORY: Cough, no congestion. No hemoptysis. Shortness of breath. CARDIOVASCULAR: No angina symptoms. No CHF symptoms. No atypical chest pain for CAD. No palpitations. No orthopnea.. GASTROINTESTINAL: No abdominal pain. No nausea or vomiting. No diarrhea or constipation. No hematemesis. No hematochezia. GENITOURINARY: No urgency. No frequency. No dysuria. No hematuria. No obstructive symptoms. No discharge. No pain. No significant abnormal bleeding. MUSCULOSKELETAL: No musculoskeletal pain; no joint swelling. NEUROLOGICAL: Awake, alert, oriented to time, place and person. No headache. No neck pain. No syncope. No seizures. No dizziness. PSYCHIATRIC: Not anxious. No depression. No suicidal thoughts. No homicidal thoughts. SKIN: No rash. No lesions. No wounds. ENDOCRINE: No unexplained weight loss. No weight gain. HEMATOLOGIC/LYMPHATIC: No anemia. No purpura. No petechiae. No prolonged or excessive bleeding. No palpable lymph nodes. PHYSICAL EXAMINATION: GENERAL: The patient is awake, alert and oriented, sitting in bed in no distress. VITAL SIGNS: Temperature 98.1 F, Pulse 93, Respiratory Rate 20, BP 124/79, Pulse Ox 100% HEENT: Head normocephalic, atraumatic. Eyes: Extraocular muscles are intact. Pupils are equal, round and reactive to light and accommodation. Ears: No lesions. Nose appeared normal. Throat: No exudate or erythema. NECK: Supple. No JVD, no carotid bruit. No lymphadenopathy or thyromegaly. LUNGS: Severely diminished breath sounds. Clear to auscultation. Percussion note normal. Chest symmetrical. HEART: S1, S2, no S3. No murmurs. No cyanosis or clubbing. No ascites. Pulses: Dorsalis pedis and posterior tibial pulses +1 to +2 both sides. ABDOMEN: Soft. Non-tender. Bowel sounds active. No CVA tenderness. No mass felt. EXTREMITIES: No edema. Full range of motion of all extremities, equal. NEUROLOGIC: No focal deficit. Cranial nerves II through XII are grossly intact. No headache, no double vision or headache. SKIN: Not dry. Intact. Turgor-normal. LYMPHATIC: No palpable lymph nodes/no lymphedema. MUSCULOSKELETAL: Normal joints with no swelling. Muscle tone is normal. LAB REVIEW: 05/09/20 05:04 05/09/20 05:04 05/09/20 05:04: PT 19.0 H, INR 1.78 05/09/20 05:04: Sodium 134.1 L, Potassium 4.60, Chloride 92.1 L, Carbon Dioxide 37.3 H, Anion Gap 9.30, BUN 24.6 H, Creatinine 0.74, Estimated GFR (MDRD) 76.00, BUN/Creatinine Ratio 33.24, Glucose 119.5 H, Calcium 10.34 H, Total Bilirubin 0.35, AST 48.1 H, ALT 42.1 H, Alkaline Phosphatase 211.1 H D, Total Protein 6.70, Albumin 3.37 L, Globulin 3.33, Albumin/Globulin Ratio 1.01 05/09/20 05:04: WBC 11.49 H, RBC 3.61 L, Hgb 10.4 L, Hct 31.7 L, MCV 87.8, MCH 28.8, MCHC 32.8, RDW Coeff of Elie 16.7 H, Plt Count 225, Immature Gran % (Auto) 0.6, Neut % (Auto) 84.5 H, Lymph % (Auto) 9.0 L, [place] % (Auto) 5.6, Eos % (Auto) 0.1, Baso % (Auto) 0.2, Neut # (Auto) 9.7 H, Lymph # (Auto) 1.0, [place] # (Auto) 0.6, Eos # (Auto) 0.0, Baso # (Auto) 0.0, Immature Gran # (Auto) 0.1 01/18/21 09:02: Puncture Site R brach, Base Excess 15.5 H, O2 Saturation 92.2 L, ABG pH 7.52 H*, ABG pCO2 47.0 H, ABG pO2 57.0 L*, ABG HCO3 38.4 H, ABG Total CO2 39.8 H, [place] Test Y, Hemoglobin 1.4, Oxyhemoglobin 89.9 L, Carboxyhemoglobin 2.4 H, Total Hemoglobin 11.6 L, O2 Delivery Device Vapotherm, FiO2 % 40.0 ASSESSMENT: Please see below. 1. Acute respiratory failure 2. Bilateral pneumonia 3. End stage COPD 4. Anxiety 5. History of DVT and PE PLAN: 1. Wean Vapotherm 2. 6mg of Coumadin today 3. I feel like the patient may have unrealistic expectations regarding prognosis and room for improvement. She is at end stage of COPD. Plan and coordination of the patient's care discussed in the presence of Personal Care Home Administrator and nurse. SCRIBED BY: LEE RODRIGUEZ Reservoir Engineer scribed while in presence of service performed by Dr. Rascon/Zuly Henry APRN on 05/09/20 ([id number])
--- NOTE | 2020-05-09 11:07 | PN ---
DATE OF SERVICE: 05/08/20 SUBJECTIVE: Melissa Shipley was seen and examined with the nurse practitioner. The patient's condition is stable, improving to some extent. The patient is somewhat drowsy and still short of breath on minimal exertion. The patient is seriously thinking about being on hospice. TIME SPENT: More than 30 minutes. Plan and coordination of the patient's care discussed in the presence of nurse. ANETA
[2020-05-09] MEDS ORDERED: COUMADIN PO ONE (17:00)
[2020-05-09] MEDS: COUMADIN PO SCH (17:18)
[2020-05-09] MEDS: PHENERGAN WITH CODEINE 6.25/10 MG/5 ML PO PRN (20:14)
[2020-05-10] MEDS: VENTOLIN HFA (PER PUFF-WITH SPACER) IH SCH ×4 (04:45→19:15)
[2020-05-10] MEDS: ATROVENT HFA INHALER (PER PUFF-WITH SPACER) IH SCH ×4 (04:45→19:15)
[2020-05-10 05:10] LABS: BASOPHILS % (AUTO) 0.1 % (0.0-3.0); EOSINOPHILS # (AUTO) 0.1 K/ul (0.0-0.7); EOSINOPHILS % (AUTO) 0.8 % (0.0-7.0); HEMATOCRIT 35.4 % (37.0-47.0); HEMOGLOBIN 11.4 g/dl (12.0-16.0); IMMATURE GRANULOCYTE # (AUTO) 0.1 (0.0-1.0); IMMATURE GRANULOCYTE % (AUTO) 1.2 % (0.0-5.0); LYMPHOCYTES % (AUTO) 9.8 (10.0-50.0); MEAN CORPUSCULAR HEMOGLOBIN 28.4 pg (27.0-31.0); MEAN CORPUSCULAR HGB CONC 32.2 (31.8-35.4); MEAN CORPUSCULAR VOLUME 88.1 fl (81.0-99.0); MONOCYTES # (AUTO) 0.7 K/uL (0.4-2.0); MONOCYTES % (AUTO) 6.6 (0-10); NEUTROPHILS # (AUTO) 8.7 K/ul (2.0-6.9); NEUTROPHILS % (AUTO) 81.5 % (42.2-75.2); PLATELET COUNT 257 10^3/uL (140-440); RDW COEFFICIENT OF VARIATION 17.1 % (11.6-14.8); RED BLOOD COUNT 4.02 10^6/ul (4.20-5.40); WHITE BLOOD COUNT 10.63 K/ul (4.6-10.2)
[2020-05-10 05:20] LABS: PROTHROMBIN TIME 23.5 SEC (9.3-11.0)
[2020-05-10 05:27] LABS: ALANINE AMINOTRANSFERASE 47.1 U/L (0-35); ALBUMIN 3.5 g/dL (3.5-5.0); ASPARTATE AMINO TRANSFERASE 41.2 U/L (14-36); BILIRUBIN,TOTAL 0.36 mg/dL (0.2-1.3); BLOOD UREA NITROGEN 33.2 mg/dL (7-17); CALCIUM 10.29 mg/dL (8.4-10.2); CHLORIDE 92.6 mmol/L (98-107); CREATININE 0.88 mg/dL (0.60-1.30); GLUCOSE 82.7 mg/dL (74-106); POTASSIUM 4.32 mmol/L (3.5-5.1); SODIUM 135.2 mmol/L (134.5-145); TOTAL PROTEIN 6.87 g/dL (6.3-8.2)
[2020-05-10 05:33] LABS: CARBON DIOXIDE 38.1 mmol/L (22-30.0)
[2020-05-10] MEDS: PROTONIX PO SCH ×2 (05:45→17:23)
[2020-05-10] MEDS: LASIX TAB PO SCH (05:45)
[2020-05-10 05:51] LABS: ABG PH 7.47 (7.35-7.45)
[2020-05-10] MEDS: FERROUS SULFATE PO SCH (08:09)
[2020-05-10] MEDS: COREG PO SCH ×2 (08:09→17:23)
[2020-05-10] MEDS: CLARITIN PO SCH (08:09)
[2020-05-10] MEDS: MUCINEX PO SCH ×2 (08:09→20:03)
[2020-05-10] MEDS: FLORASTOR PO SCH ×2 (08:09→20:03)
[2020-05-10] MEDS: PREDNISONE PO SCH (08:10)
[2020-05-10] MEDS: XANAX PO SCH ×3 (08:10→20:03)
[2020-05-10] MEDS: ULTRAM PO SCH ×2 (08:10→20:03)
[2020-05-10] MEDS: K-DUR PO SCH ×2 (08:10→17:23)
[2020-05-10] MEDS: BRIMONIDINE TARTRATE 0.2% OPTH SOL EACHEYE SCH ×2 (08:11→20:04)
[2020-05-10] MEDS: SODIUM CHLORIDE IV SCH (08:11)
[2020-05-10] MEDS: SYMBICORT 160-4.5 MCG INHALER IH SCH ×2 (08:11→20:04)
[2020-05-10] MEDS: TOBRAMYCIN SULFATE IV SCH (08:11)
--- NOTE | 2020-05-10 12:27 | PN ---
DATE OF SERVICE: 05/09/20 SUBJECTIVE: The patient was seen and examined with the nurse practitioner. The patient's condition seems to have improved. The patient is being weaned off high flow oxygen. Respiratory status has improved some but still prognosis is guarded. TIME SPENT: More than 30 minutes. Plan and coordination of the patient's care discussed in the presence of nurse. ANETA
[2020-05-10] MEDS: COUMADIN PO SCH (17:24)
[2020-05-10] MEDS: PHENERGAN WITH CODEINE 6.25/10 MG/5 ML PO PRN (20:03)
[2020-05-11] MEDS: VENTOLIN HFA (PER PUFF-WITH SPACER) IH SCH ×4 (04:45→20:00)
[2020-05-11] MEDS: ATROVENT HFA INHALER (PER PUFF-WITH SPACER) IH SCH ×4 (04:45→20:00)
[2020-05-11 05:09] LABS: BASOPHILS % (AUTO) 0.3 % (0.0-3.0); EOSINOPHILS # (AUTO) 0.1 K/ul (0.0-0.7); EOSINOPHILS % (AUTO) 0.9 % (0.0-7.0); HEMATOCRIT 34.7 % (37.0-47.0); HEMOGLOBIN 10.9 g/dl (12.0-16.0); IMMATURE GRANULOCYTE # (AUTO) 0.2 (0.0-1.0); IMMATURE GRANULOCYTE % (AUTO) 1.5 % (0.0-5.0); LYMPHOCYTES # (AUTO) 1.3 K/uL (0.60-3.4); LYMPHOCYTES % (AUTO) 11.1 (10.0-50.0); MEAN CORPUSCULAR HEMOGLOBIN 27.7 pg (27.0-31.0); MEAN CORPUSCULAR HGB CONC 31.4 (31.8-35.4); MEAN CORPUSCULAR VOLUME 88.1 fl (81.0-99.0); MONOCYTES # (AUTO) 0.8 K/uL (0.4-2.0); MONOCYTES % (AUTO) 6.8 (0-10); NEUTROPHILS # (AUTO) 9.3 K/ul (2.0-6.9); NEUTROPHILS % (AUTO) 79.4 % (42.2-75.2); PLATELET COUNT 297 10^3/uL (140-440); RDW COEFFICIENT OF VARIATION 17.2 % (11.6-14.8); RED BLOOD COUNT 3.94 10^6/ul (4.20-5.40); WHITE BLOOD COUNT 11.67 K/ul (4.6-10.2)
[2020-05-11 05:14] LABS: ALANINE AMINOTRANSFERASE 42.5 U/L (0-35); ALBUMIN 3.57 g/dL (3.5-5.0); ALKALINE PHOSPHATASE 225.6 U/L (53-141); ASPARTATE AMINO TRANSFERASE 36.5 U/L (14-36); BILIRUBIN,TOTAL 0.36 mg/dL (0.2-1.3); BLOOD UREA NITROGEN 40.6 mg/dL (7-17); CALCIUM 10.29 mg/dL (8.4-10.2); CARBON DIOXIDE 39.9 mmol/L (22-30.0); CHLORIDE 91.2 mmol/L (98-107); CREATININE 0.94 mg/dL (0.60-1.30); GLUCOSE 89.9 mg/dL (74-106); POTASSIUM 4.35 mmol/L (3.5-5.1); SODIUM 134.6 mmol/L (134.5-145); TOTAL PROTEIN 6.88 g/dL (6.3-8.2)
[2020-05-11 05:21] LABS: PROTHROMBIN TIME 36.1 SEC (9.3-11.0)
[2020-05-11] MEDS: LASIX TAB PO SCH (05:36)
[2020-05-11] MEDS: PROTONIX PO SCH ×2 (05:37→17:29)
--- NOTE | 2020-05-11 08:40 | PCM.PROG ---
Attending Provider: ATTENDING PROVIDER: Dr. RAISA RASCON This patient is seen with Zuly Henry, Nurse Practitioner. DATE OF SERVICE: 05/11/20 SUBJECTIVE: This 79 year old /WHITE F was hospitalized 05/04/20. The patient is resting comfortably. She is complaining of dizziness this morning. She didn't sleep well. Repeat ABGs were improved. REVIEW OF SYSTEMS: CONSTITUTIONAL: No night sweats. No fatigue, malaise, lethargy. No fever or chills. Weakness. HEENT: Eyes: No visual changes. No eye pain. No eye discharge. ENT: No runny nose. No epistaxis. No sinus pain. No odynophagia. No congestion. RESPIRATORY: Cough, no congestion. No hemoptysis. Shortness of breath. CARDIOVASCULAR: No angina symptoms. No CHF symptoms. No atypical chest pain for CAD. No palpitations. No orthopnea.. GASTROINTESTINAL: No abdominal pain. No nausea or vomiting. No diarrhea or constipation. No hematemesis. No hematochezia. GENITOURINARY: No urgency. No frequency. No dysuria. No hematuria. No obstructive symptoms. No discharge. No pain. No significant abnormal bleeding. MUSCULOSKELETAL: No musculoskeletal pain; no joint swelling. NEUROLOGICAL: Awake, alert, oriented to time, place and person. No headache. No neck pain. No syncope. No seizures. No dizziness. PSYCHIATRIC: Not anxious. No depression. No suicidal thoughts. No homicidal thoughts. SKIN: No rash. No lesions. No wounds. ENDOCRINE: No unexplained weight loss. No weight gain. HEMATOLOGIC/LYMPHATIC: No anemia. No purpura. No petechiae. No prolonged or excessive bleeding. No palpable lymph nodes. PHYSICAL EXAMINATION: GENERAL: The patient is awake, alert and oriented, sitting in bed in no distress. VITAL SIGNS: Temperature 98.5 F, Pulse 91, Respiratory Rate 18, BP 102/65, Pulse Ox 96% HEENT: Head normocephalic, atraumatic. Eyes: Extraocular muscles are intact. Pupils are equal, round and reactive to light and accommodation. Ears: No lesions. Nose appeared normal. Throat: No exudate or erythema. NECK: Supple. No JVD, no carotid bruit. No lymphadenopathy or thyromegaly. LUNGS: Severely diminished breath sounds. Clear to auscultation. Percussion note normal. Chest symmetrical. HEART: S1, S2, no S3. No murmurs. No cyanosis or clubbing. No ascites. Pulses: Dorsalis pedis and posterior tibial pulses +1 to +2 both sides. ABDOMEN: Soft. Non-tender. Bowel sounds active. No CVA tenderness. No mass felt. EXTREMITIES: No edema. Full range of motion of all extremities, equal. NEUROLOGIC: No focal deficit. Cranial nerves II through XII are grossly intact. No headache, no double vision or headache. SKIN: Not dry. Intact. Turgor-normal. LYMPHATIC: No palpable lymph nodes/no lymphedema. MUSCULOSKELETAL: Normal joints with no swelling. Muscle tone is normal. LAB REVIEW: 05/11/20 04:45 05/11/20 04:45 05/11/20 04:45: PT 36.1 H D, INR 3.37 05/11/20 04:45: Sodium 134.6, Potassium 4.35, Chloride 91.2 L, Carbon Dioxide 39.9 H, Anion Gap 7.85, BUN 40.6 H, Creatinine 0.94, Estimated GFR (MDRD) 58.00, BUN/Creatinine Ratio 43.19, Glucose 89.9, Calcium 10.29 H, Total Bilirubin 0.36, AST 36.5 H, ALT 42.5 H, Alkaline Phosphatase 225.6 H, Total Protein 6.88, Albumin 3.57, Globulin 3.31, Albumin/Globulin Ratio 1.07 05/11/20 04:45: WBC 11.67 H, RBC 3.94 L, Hgb 10.9 L, Hct 34.7 L, MCV 88.1, MCH 27.7, MCHC 31.4 L, RDW Coeff of Elie 17.2 H, Plt Count 297, Immature Gran % (Auto) 1.5, Neut % (Auto) 79.4 H, Lymph % (Auto) 11.1, [place] % (Auto) 6.8, Eos % (Auto) 0.9, Baso % (Auto) 0.3, Neut # (Auto) 9.3 H, Lymph # (Auto) 1.3, [place] # (Auto) 0.8, Eos # (Auto) 0.1, Baso # (Auto) 0.0, Immature Gran # (Auto) 0.2 ASSESSMENT: Please see below. 1. Acute respiratory failure 2. Bilateral pneumonia 3. End stage COPD 4. Anxiety 5. History of DVT and PE PLAN: 1. Continue IV antibiotics 2. Hold Coumadin Plan and coordination of the patient's care discussed in the presence of Section Laborer and nurse. SCRIBED BY: Luis REDD scribed while in presence of service performed by Dr. Rascon/Zuly Henry APRN on 05/11/20 ([id number])
[2020-05-11] MEDS: PHENERGAN WITH CODEINE 6.25/10 MG/5 ML PO PRN (08:50)
[2020-05-11] MEDS: CLARITIN PO SCH (08:50)
[2020-05-11] MEDS: MUCINEX PO SCH ×2 (08:50→20:15)
[2020-05-11] MEDS: FLORASTOR PO SCH ×2 (08:50→20:14)
[2020-05-11] MEDS: XANAX PO SCH ×3 (08:50→20:14)
[2020-05-11] MEDS: PREDNISONE PO SCH (08:50)
[2020-05-11] MEDS: K-DUR PO SCH ×2 (08:50→17:29)
[2020-05-11] MEDS: ULTRAM PO SCH ×2 (08:50→20:14)
[2020-05-11] MEDS: FERROUS SULFATE PO SCH (08:50)
[2020-05-11] MEDS: COREG PO SCH ×2 (08:51→17:29)
[2020-05-11] MEDS: BRIMONIDINE TARTRATE 0.2% OPTH SOL EACHEYE SCH ×2 (08:51→20:16)
[2020-05-11] MEDS: SYMBICORT 160-4.5 MCG INHALER IH SCH ×2 (08:51→20:15)
[2020-05-11] MEDS: SODIUM CHLORIDE IV SCH (09:55)
[2020-05-11] MEDS: TOBRAMYCIN SULFATE IV SCH (09:55)
--- NOTE | 2020-05-11 11:36 | PN ---
DATE OF SERVICE: 05/10/2020 SUBJECTIVE: 79 year old white female hospitalized with acute exacerbation of COPD. Condition has remarkably improved. She is feeling a lot better. She was talking on the cellphone and was able to talk without getting short of breath. REVIEW OF SYSTEMS: CONSTITUTIONAL: No night sweats. No fatigue, malaise, lethargy. No fever or chills. HEENT: Eyes: No visual changes. No eye pain. No eye discharge. ENT: No runny nose. No epistaxis. No sinus pain. No sore throat. No odynophagia. No congestion. RESPIRATORY: No cough, no congestion. No hemoptysis. Shortness of breath on minimal exertion. CARDIOVASCULAR: No angina symptoms. No CHF symptoms. No atypical chest pain for CAD. No palpitations. No PND. No orthopnea. GASTROINTESTINAL: No abdominal pain. No nausea or vomiting. No diarrhea or constipation. No hematemesis. No hematochezia. GENITOURINARY: No urgency. No frequency. No dysuria. No hematuria. No obstructive symptoms. No discharge. No pain. No significant abnormal bleeding. MUSCULOSKELETAL: No musculoskeletal pain; no joint swelling. NEUROLOGICAL: No headache. No neck pain. No syncope. No seizures. No dizziness. PSYCHIATRIC: Not anxious. No depression. No suicidal thoughts. No homicidal thoughts. SKIN: No rash. No lesions. No wounds. ENDOCRINE: No unexplained weight loss. No weight gain. HEMATOLOGIC/LYMPHATIC: No anemia. No purpura. No petechiae. No prolonged or excessive bleeding. No palpable lymph nodes. PHYSICAL EXAMINATION: VITAL SIGNS: Temperature 99.1, pulse 90, respiratory 18, blood pressure 130/78 and pulse ox 96% on 3 liters. HEENT: Head normocephalic, atraumatic. Eyes: Extraocular muscles are intact. Pupils are equal, round and reactive to light and accommodation. Ears: No lesions. Nose appeared normal. Throat: No exudate or erythema. NECK: Supple. No JVD, no carotid bruit. No lymphadenopathy or thyromegaly. LUNGS: Decreased breath sounds with mild wheeze. Good air entry better than when she came in. Clear to auscultation. Percussion note normal. Chest symmetrical. HEART: S1, S2, no S3. No murmurs. No cyanosis or clubbing. No ascites. Pulses: Dorsalis pedis and posterior tibial pulses +1 to +2 bilaterally. ABDOMEN: Soft. Nontender. Bowel sounds active. No CVA tenderness. No mass felt. EXTREMITIES: No edema. Full range of motion of all extremities, equal. NEUROLOGIC: No focal deficit. Cranial nerves II through XII are grossly intact. No headache, no double vision or headache. SKIN: Not dry. Intact. Turgor - normal. LYMPHATIC: No palpable lymph nodes/no lymphedema. MUSCULOSKELETAL: Normal joints with no swelling. Muscle tone is normal. LABS: Hgb 11.4, hct 35, WBC 10,000 normal differential, BUN 33, potassium 4.3, INR 2.2. ASSESSMENT: 1. Acute exacerbation of COPD which seems to be improving with antibiotics and NEBS treatment and inhalers PLAN: 1. Discontinue Peterson Catheter 2. Continue Coumadin 3mg daily 3. PT/OT to be done 4. The patient AST and ALT seems to be improving. CONDITION: Stable. TIME SPENT: More than 30 minutes. Plan and coordination of the patient's care discussed in the presence of nurse. ANETA
--- NOTE | 2020-05-11 13:26 | PN ---
DATE OF SERVICE: 05/11/20 SUBJECTIVE: The patient was seen and examined with the Nurse Practitioner. The patient's condition is stable. She is better than when she came in but she has been continued on Tobramycin. Advised to quit smoking. The patient is still on steroids along with inhalers. Prognosis is poor but the condition has improved. TIME SPENT: More than 30 minutes. Plan and coordination of the patient's care discussed in the presence of nurse. ANETA
[2020-05-12] MEDS: VENTOLIN HFA (PER PUFF-WITH SPACER) IH SCH ×4 (04:54→19:57)
[2020-05-12] MEDS: ATROVENT HFA INHALER (PER PUFF-WITH SPACER) IH SCH ×4 (04:54→19:57)
[2020-05-12 05:28] LABS: BASOPHILS % (AUTO) 0.3 % (0.0-3.0); EOSINOPHILS # (AUTO) 0.1 K/ul (0.0-0.7); EOSINOPHILS % (AUTO) 0.8 % (0.0-7.0); HEMATOCRIT 33.9 % (37.0-47.0); HEMOGLOBIN 10.8 g/dl (12.0-16.0); IMMATURE GRANULOCYTE # (AUTO) 0.2 (0.0-1.0); IMMATURE GRANULOCYTE % (AUTO) 2.3 % (0.0-5.0); LYMPHOCYTES % (AUTO) 11.2 (10.0-50.0); MEAN CORPUSCULAR HEMOGLOBIN 28.3 pg (27.0-31.0); MEAN CORPUSCULAR HGB CONC 31.9 (31.8-35.4); MONOCYTES # (AUTO) 0.6 K/uL (0.4-2.0); MONOCYTES % (AUTO) 6.6 (0-10); NEUTROPHILS # (AUTO) 7.3 K/ul (2.0-6.9); NEUTROPHILS % (AUTO) 78.8 % (42.2-75.2); PLATELET COUNT 329 10^3/uL (140-440); RDW COEFFICIENT OF VARIATION 17.3 % (11.6-14.8); RED BLOOD COUNT 3.81 10^6/ul (4.20-5.40); WHITE BLOOD COUNT 9.25 K/ul (4.6-10.2)
[2020-05-12] MEDS: PROTONIX PO SCH ×2 (05:36→17:23)
[2020-05-12] MEDS: LASIX TAB PO SCH (05:36)
[2020-05-12 05:42] LABS: PROTHROMBIN TIME 31.6 SEC (9.3-11.0)
[2020-05-12 05:44] LABS: ALANINE AMINOTRANSFERASE 37.5 U/L (0-35); ALBUMIN 3.54 g/dL (3.5-5.0); ALKALINE PHOSPHATASE 201.1 U/L (53-141); ASPARTATE AMINO TRANSFERASE 32.1 U/L (14-36); BILIRUBIN,TOTAL 0.39 mg/dL (0.2-1.3); BLOOD UREA NITROGEN 39.9 mg/dL (7-17); CALCIUM 10.34 mg/dL (8.4-10.2); CARBON DIOXIDE 39.3 mmol/L (22-30.0); CHLORIDE 92.7 mmol/L (98-107); CREATININE 0.86 mg/dL (0.60-1.30); GLUCOSE 91.3 mg/dL (74-106); POTASSIUM 4.79 mmol/L (3.5-5.1); SODIUM 134.8 mmol/L (134.5-145); TOTAL PROTEIN 6.75 g/dL (6.3-8.2)
--- NOTE | 2020-05-12 08:45 | PCM.PROG ---
Attending Provider: ATTENDING PROVIDER: Dr. RAISA RASCON DATE OF SERVICE: 05/12/20 SUBJECTIVE: This 79 year old /WHITE F was hospitalized 05/04/20 with sever chronic lung disease with bronchitis. The patient his history of pseudomonas recurrent pneumonia, infiltrates involving both lungs. Over all condition has improved. Able to talk full sentences. Still short of breath with minimal exertion. REVIEW OF SYSTEMS: CONSTITUTIONAL: No night sweats. No fatigue, malaise, lethargy. No fever or chills. HEENT: Eyes: No visual changes. No eye pain. No eye discharge. ENT: No runny nose. No epistaxis. No sinus pain. No odynophagia. No congestion. RESPIRATORY: No cough, no congestion. No hemoptysis. No shortness of breath. CARDIOVASCULAR: No angina symptoms. No CHF symptoms. No atypical chest pain for CAD. No palpitations. No orthopnea.. GASTROINTESTINAL: No abdominal pain. No nausea or vomiting. No diarrhea or constipation. No hematemesis. No hematochezia. GENITOURINARY: No urgency. No frequency. No dysuria. No hematuria. No obstructive symptoms. No discharge. No pain. No significant abnormal bleeding. MUSCULOSKELETAL: No musculoskeletal pain; no joint swelling. NEUROLOGICAL: Awake, alert, oriented to time, place and person. No headache. No neck pain. No syncope. No seizures. Lightheaded with change in posture. PSYCHIATRIC: Not anxious. No depression. No suicidal thoughts. No homicidal thoughts. SKIN: No rash. No lesions. No wounds. ENDOCRINE: No unexplained weight loss. No weight gain. HEMATOLOGIC/LYMPHATIC: No anemia. No purpura. No petechiae. No prolonged or excessive bleeding. No palpable lymph nodes. PHYSICAL EXAMINATION: GENERAL: The patient is awake, alert and oriented, sitting in bed in no distress. VITAL SIGNS: Temperature 98.2 F, Pulse 98, Respiratory Rate 20, BP 113/67, Pulse Ox 97% HEENT: Head normocephalic, atraumatic. Eyes: Extraocular muscles are intact. Pupils are equal, round and reactive to light and accommodation. Ears: No lesions. Nose appeared normal. Throat: No exudate or erythema. NECK: Supple. No JVD, no carotid bruit. No lymphadenopathy or thyromegaly. LUNGS: Good air entry. Still has mild decreased breath sounds with faint wheezing, expiratory. Clear to auscultation. Percussion note normal. Chest symmetrical. HEART: S1, S2, no S3. No murmurs. No cyanosis or clubbing. No ascites. Pulses: Dorsalis pedis and posterior tibial pulses +1 to +2 both sides. ABDOMEN: Soft. Non-tender. Bowel sounds active. No CVA tenderness. No mass felt. EXTREMITIES: No edema. Full range of motion of all extremities, equal. NEUROLOGIC: No focal deficit. Cranial nerves II through XII are grossly intact. No headache, no double vision or headache. SKIN: Warm and dry. Intact. Turgor-normal. LYMPHATIC: No palpable lymph nodes/no lymphedema. MUSCULOSKELETAL: Normal joints with no swelling. Muscle tone is normal. LAB REVIEW: 05/12/20 04:50 05/12/20 04:50 05/12/20 04:50: Sodium 134.8, Potassium 4.79, Chloride 92.7 L, Carbon Dioxide 39.3 H, Anion Gap 7.59, BUN 39.9 H, Creatinine 0.86, Estimated GFR (MDRD) 64.00, BUN/Creatinine Ratio 46.39, Glucose 91.3, Calcium 10.34 H, Total Bilirubin 0.39, AST 32.1, ALT 37.5 H, Alkaline Phosphatase 201.1 H, Total Protein 6.75, Albumin 3.54, Globulin 3.21, Albumin/Globulin Ratio 1.10 05/12/20 04:50: PT 31.6 H, INR 2.95 05/12/20 04:50: WBC 9.25, RBC 3.81 L, Hgb 10.8 L, Hct 33.9 L, MCV 89.0, MCH 28.3, MCHC 31.9, RDW Coeff of Elie 17.3 H, Plt Count 329, Immature Gran % (Auto) 2.3, Neut % (Auto) 78.8 H, Lymph % (Auto) 11.2, [place] % (Auto) 6.6, Eos % (Auto) 0.8, Baso % (Auto) 0.3, Neut # (Auto) 7.3 H, Lymph # (Auto) 1.0, [place] # (Auto) 0.6, Eos # (Auto) 0.1, Baso # (Auto) 0.0, Immature Gran # (Auto) 0.2 ASSESSMENT: Please see below. 1. Dizziness/ lightheadedness likely from posture, drop in blood pressure. 2. Creatinine is 0.8, and BUN 40 indicating mild dehydration. Advised to drink liquids and eat. 3. The patient refuses PT, she needs strengthening of muscles. PLAN: 1. The patient is going to be on Tobramycin. Kidney function BUN and creatinine is still normal. She will continue Tobramycin and we will monitor kidney functions. 2. anemia is stable 3. Appetite seems to be improving Overall condition is improving. Plan and coordination of the patient's care discussed in the presence of High Value Associate and nurse. PROGNOSIS: Guarded SCRIBED BY: LEE RODRIGUEZ, Automobile Spring Repairer scribed while in presence of service performed by Dr. RAISA RASCON on 05/12/20 ([id number])
[2020-05-12] MEDS: TOBRAMYCIN SULFATE IV SCH (08:55)
[2020-05-12] MEDS: MUCINEX PO SCH ×2 (08:55→20:39)
[2020-05-12] MEDS: FLORASTOR PO SCH ×2 (08:55→20:39)
[2020-05-12] MEDS: XANAX PO SCH ×3 (08:55→20:39)
[2020-05-12] MEDS: SODIUM CHLORIDE IV SCH (08:55)
[2020-05-12] MEDS: COREG PO SCH ×2 (08:56→17:23)
[2020-05-12] MEDS: CLARITIN PO SCH (08:56)
[2020-05-12] MEDS: K-DUR PO SCH ×2 (08:56→17:23)
[2020-05-12] MEDS: PREDNISONE PO SCH (08:56)
[2020-05-12] MEDS: BRIMONIDINE TARTRATE 0.2% OPTH SOL EACHEYE SCH ×2 (08:56→20:40)
[2020-05-12] MEDS: SYMBICORT 160-4.5 MCG INHALER IH SCH ×2 (08:56→20:40)
[2020-05-12] MEDS: ULTRAM PO SCH ×2 (08:56→20:39)
[2020-05-12] MEDS: FERROUS SULFATE PO SCH (08:56)
[2020-05-12] MEDS: COUMADIN PO SCH (17:23)
[2020-05-12] MEDS: PHENERGAN WITH CODEINE 6.25/10 MG/5 ML PO PRN (20:40)
[2020-05-13] MEDS: LASIX TAB PO SCH (05:30)
[2020-05-13] MEDS: PROTONIX PO SCH ×2 (05:30→17:22)
[2020-05-13 05:33] LABS: BASOPHILS % (AUTO) 0.4 % (0.0-3.0); EOSINOPHILS # (AUTO) 0.1 K/ul (0.0-0.7); EOSINOPHILS % (AUTO) 1.3 % (0.0-7.0); HEMATOCRIT 33.3 % (37.0-47.0); HEMOGLOBIN 10.7 g/dl (12.0-16.0); IMMATURE GRANULOCYTE # (AUTO) 0.2 (0.0-1.0); IMMATURE GRANULOCYTE % (AUTO) 2.3 % (0.0-5.0); LYMPHOCYTES # (AUTO) 1.6 K/uL (0.60-3.4); LYMPHOCYTES % (AUTO) 17.2 (10.0-50.0); MEAN CORPUSCULAR HEMOGLOBIN 28.2 pg (27.0-31.0); MEAN CORPUSCULAR HGB CONC 32.1 (31.8-35.4); MEAN CORPUSCULAR VOLUME 87.6 fl (81.0-99.0); MONOCYTES # (AUTO) 0.7 K/uL (0.4-2.0); MONOCYTES % (AUTO) 7.6 (0-10); NEUTROPHILS # (AUTO) 6.7 K/ul (2.0-6.9); NEUTROPHILS % (AUTO) 71.2 % (42.2-75.2); PLATELET COUNT 393 10^3/uL (140-440); RDW COEFFICIENT OF VARIATION 17.3 % (11.6-14.8); WHITE BLOOD COUNT 9.43 K/ul (4.6-10.2)
[2020-05-13] MEDS: VENTOLIN HFA (PER PUFF-WITH SPACER) IH SCH ×4 (05:40→18:57)
[2020-05-13] MEDS: ATROVENT HFA INHALER (PER PUFF-WITH SPACER) IH SCH ×4 (05:40→18:58)
[2020-05-13 05:45] LABS: PROTHROMBIN TIME 23.3 SEC (9.3-11.0)
[2020-05-13 05:47] LABS: ALANINE AMINOTRANSFERASE 36.3 U/L (0-35); ALBUMIN 3.84 g/dL (3.5-5.0); ALKALINE PHOSPHATASE 209.9 U/L (53-141); ASPARTATE AMINO TRANSFERASE 34.5 U/L (14-36); BILIRUBIN,TOTAL 0.4 mg/dL (0.2-1.3); BLOOD UREA NITROGEN 38.5 mg/dL (7-17); CALCIUM 10.38 mg/dL (8.4-10.2); CARBON DIOXIDE 35.3 mmol/L (22-30.0); CREATININE 0.97 mg/dL (0.60-1.30); GLUCOSE 75.9 mg/dL (74-106); POTASSIUM 4.12 mmol/L (3.5-5.1); TOTAL PROTEIN 7.18 g/dL (6.3-8.2)
[2020-05-13] MEDS: SYMBICORT 160-4.5 MCG INHALER IH SCH ×2 (08:06→20:58)
[2020-05-13] MEDS: FERROUS SULFATE PO SCH (08:07)
[2020-05-13] MEDS: XANAX PO SCH ×3 (08:07→20:57)
[2020-05-13] MEDS: BRIMONIDINE TARTRATE 0.2% OPTH SOL EACHEYE SCH ×2 (08:07→20:58)
[2020-05-13] MEDS: CLARITIN PO SCH (08:07)
[2020-05-13] MEDS: FLORASTOR PO SCH ×2 (08:07→20:57)
[2020-05-13] MEDS: MUCINEX PO SCH ×2 (08:07→20:57)
[2020-05-13] MEDS: ULTRAM PO SCH ×2 (08:07→20:57)
[2020-05-13] MEDS: COREG PO SCH ×2 (08:14→17:22)
[2020-05-13] MEDS: K-DUR PO SCH ×2 (08:14→17:22)
[2020-05-13] MEDS: PREDNISONE PO SCH (08:14)
[2020-05-13] MEDS: TOBRAMYCIN SULFATE IV SCH (09:00)
[2020-05-13] MEDS: SODIUM CHLORIDE IV SCH (09:00)
[2020-05-13] MEDS: COUMADIN PO SCH (17:22)
[2020-05-14] MEDS: ATROVENT HFA INHALER (PER PUFF-WITH SPACER) IH SCH ×4 (04:55→19:12)
[2020-05-14] MEDS: VENTOLIN HFA (PER PUFF-WITH SPACER) IH SCH ×4 (04:55→19:12)
[2020-05-14 05:34] LABS: BASOPHILS % (AUTO) 0.4 % (0.0-3.0); EOSINOPHILS # (AUTO) 0.1 K/ul (0.0-0.7); EOSINOPHILS % (AUTO) 1.2 % (0.0-7.0); HEMATOCRIT 31.7 % (37.0-47.0); HEMOGLOBIN 10.1 g/dl (12.0-16.0); IMMATURE GRANULOCYTE # (AUTO) 0.2 (0.0-1.0); LYMPHOCYTES # (AUTO) 1.1 K/uL (0.60-3.4); LYMPHOCYTES % (AUTO) 13.9 (10.0-50.0); MEAN CORPUSCULAR HEMOGLOBIN 28.4 pg (27.0-31.0); MEAN CORPUSCULAR HGB CONC 31.9 (31.8-35.4); MONOCYTES # (AUTO) 0.6 K/uL (0.4-2.0); MONOCYTES % (AUTO) 7.5 (0-10); NEUTROPHILS # (AUTO) 5.8 K/ul (2.0-6.9); PLATELET COUNT 358 10^3/uL (140-440); RDW COEFFICIENT OF VARIATION 17.5 % (11.6-14.8); RED BLOOD COUNT 3.56 10^6/ul (4.20-5.40); WHITE BLOOD COUNT 7.77 K/ul (4.6-10.2)
[2020-05-14 05:44] LABS: PROTHROMBIN TIME 25.7 SEC (9.3-11.0)
[2020-05-14 05:49] LABS: ALANINE AMINOTRANSFERASE 30.7 U/L (0-35); ALBUMIN 3.53 g/dL (3.5-5.0); ALKALINE PHOSPHATASE 186.2 U/L (53-141); ASPARTATE AMINO TRANSFERASE 31.3 U/L (14-36); BILIRUBIN,TOTAL 0.4 mg/dL (0.2-1.3); BLOOD UREA NITROGEN 44.3 mg/dL (7-17); CALCIUM 10.06 mg/dL (8.4-10.2); CARBON DIOXIDE 32.7 mmol/L (22-30.0); CREATININE 1.03 mg/dL (0.60-1.30); GLUCOSE 76.2 mg/dL (74-106); POTASSIUM 4.68 mmol/L (3.5-5.1); TOTAL PROTEIN 6.65 g/dL (6.3-8.2)
[2020-05-14] MEDS: PROTONIX PO SCH ×2 (06:24→17:15)
[2020-05-14] MEDS: LASIX TAB PO SCH (06:24)
[2020-05-14] MEDS: MUCINEX PO SCH ×2 (09:03→20:38)
[2020-05-14] MEDS: FLORASTOR PO SCH ×2 (09:03→20:38)
[2020-05-14] MEDS: TOBRAMYCIN SULFATE IV SCH (09:03)
[2020-05-14] MEDS: CLARITIN PO SCH (09:03)
[2020-05-14] MEDS: SODIUM CHLORIDE IV SCH (09:03)
[2020-05-14] MEDS: ULTRAM PO SCH ×2 (09:03→20:38)
[2020-05-14] MEDS: XANAX PO SCH ×3 (09:04→20:38)
[2020-05-14] MEDS: K-DUR PO SCH ×2 (09:04→17:15)
[2020-05-14] MEDS: FERROUS SULFATE PO SCH (09:04)
[2020-05-14] MEDS: COREG PO SCH ×2 (09:04→17:15)
[2020-05-14] MEDS: PREDNISONE PO SCH (09:04)
[2020-05-14] MEDS: BRIMONIDINE TARTRATE 0.2% OPTH SOL EACHEYE SCH ×2 (09:05→20:38)
[2020-05-14] MEDS: SYMBICORT 160-4.5 MCG INHALER IH SCH ×2 (09:05→20:38)
[2020-05-14] MEDS ORDERED: ANTIVERT PO PRN (12:44)
[2020-05-14] MEDS: COUMADIN PO SCH ×2 (17:16→17:27)
[2020-05-14] MEDS: PHENERGAN WITH CODEINE 6.25/10 MG/5 ML PO PRN (20:38)
[2020-05-15] MEDS: ATROVENT HFA INHALER (PER PUFF-WITH SPACER) IH SCH ×4 (04:40→19:30)
[2020-05-15] MEDS: VENTOLIN HFA (PER PUFF-WITH SPACER) IH SCH ×4 (04:40→19:30)
[2020-05-15 05:28] LABS: BASOPHILS % (AUTO) 0.2 % (0.0-3.0); EOSINOPHILS # (AUTO) 0.1 K/ul (0.0-0.7); EOSINOPHILS % (AUTO) 0.8 % (0.0-7.0); HEMATOCRIT 32.4 % (37.0-47.0); HEMOGLOBIN 10.1 g/dl (12.0-16.0); IMMATURE GRANULOCYTE # (AUTO) 0.2 (0.0-1.0); IMMATURE GRANULOCYTE % (AUTO) 2.1 % (0.0-5.0); LYMPHOCYTES # (AUTO) 1.2 K/uL (0.60-3.4); LYMPHOCYTES % (AUTO) 13.2 (10.0-50.0); MEAN CORPUSCULAR HEMOGLOBIN 27.8 pg (27.0-31.0); MEAN CORPUSCULAR HGB CONC 31.2 (31.8-35.4); MEAN CORPUSCULAR VOLUME 89.3 fl (81.0-99.0); MONOCYTES # (AUTO) 0.7 K/uL (0.4-2.0); MONOCYTES % (AUTO) 7.1 (0-10); NEUTROPHILS % (AUTO) 76.6 % (42.2-75.2); PLATELET COUNT 394 10^3/uL (140-440); RDW COEFFICIENT OF VARIATION 17.8 % (11.6-14.8); RED BLOOD COUNT 3.63 10^6/ul (4.20-5.40)
[2020-05-15 05:39] LABS: ALANINE AMINOTRANSFERASE 31.2 U/L (0-35); ALBUMIN 3.48 g/dL (3.5-5.0); ALKALINE PHOSPHATASE 181.9 U/L (53-141); ASPARTATE AMINO TRANSFERASE 34.5 U/L (14-36); BILIRUBIN,TOTAL 0.4 mg/dL (0.2-1.3); BLOOD UREA NITROGEN 38.5 mg/dL (7-17); CALCIUM 10.04 mg/dL (8.4-10.2); CHLORIDE 91.8 mmol/L (98-107); CREATININE 1.05 mg/dL (0.60-1.30); GLUCOSE 87.2 mg/dL (74-106); POTASSIUM 4.6 mmol/L (3.5-5.1); PROTHROMBIN TIME 28.3 SEC (9.3-11.0); SODIUM 134.6 mmol/L (134.5-145); TOTAL PROTEIN 6.66 g/dL (6.3-8.2)
[2020-05-15 05:45] LABS: CARBON DIOXIDE 38.1 mmol/L (22-30.0)
[2020-05-15] MEDS: PROTONIX PO SCH ×2 (06:03→17:18)
[2020-05-15] MEDS: LASIX TAB PO SCH (06:04)
[2020-05-15] MEDS ORDERED: LASIX IVP STA (08:17)
--- NOTE | 2020-05-15 08:47 | PCM.PROG ---
Attending Provider: ATTENDING PROVIDER: Dr. RAISA RASCON This patient is seen with Zuly Henry, Nurse Practitioner. DATE OF SERVICE: 05/15/20 SUBJECTIVE: This 79 year old /WHITE F was hospitalized 05/04/20. The patient is still very short of breath with exertion. She is worried about not being able to take care of herself once at home. REVIEW OF SYSTEMS: CONSTITUTIONAL: Weakness. No night sweats. No malaise, lethargy. No fever or chills. HEENT: Eyes: No visual changes. No eye pain. No eye discharge. ENT: No runny nose. No epistaxis. No sinus pain. No odynophagia. No congestion. RESPIRATORY: Cough. Shortness of breath. No congestion. No hemoptysis. CARDIOVASCULAR: No angina symptoms. No CHF symptoms. No atypical chest pain for CAD. No palpitations. No orthopnea. GASTROINTESTINAL: No abdominal pain. No nausea or vomiting. No diarrhea or constipation. No hematemesis. No hematochezia. GENITOURINARY: No urgency. No frequency. No dysuria. No hematuria. No obstructive symptoms. No discharge. No pain. No significant abnormal bleeding. MUSCULOSKELETAL: No musculoskeletal pain; no joint swelling. NEUROLOGICAL: Awake, alert, oriented to time, place and person. No headache. No neck pain. No syncope. No seizures. No dizziness. PSYCHIATRIC: Not anxious. No depression. No suicidal thoughts. No homicidal thoughts. SKIN: No rash. No lesions. No wounds. ENDOCRINE: No unexplained weight loss. No weight gain. HEMATOLOGIC/LYMPHATIC: No anemia. No purpura. No petechiae. No prolonged or excessive bleeding. No palpable lymph nodes. PHYSICAL EXAMINATION: GENERAL: The patient is awake, alert and oriented, lying/sitting in bed in no distress. VITAL SIGNS: Temperature 97.5 F, Pulse 89, Respiratory Rate 18, BP 133/78, Pulse Ox 100% HEENT: Head normocephalic, atraumatic. Eyes: Extraocular muscles are intact. Pupils are equal, round and reactive to light and accommodation. Ears: No lesions. Nose appeared normal. Throat: No exudate or erythema. NECK: Supple. No JVD, no carotid bruit. No lymphadenopathy or thyromegaly. LUNGS: Diminished breath sounds. Clear to auscultation. Percussion note normal. Chest symmetrical. HEART: S1, S2, no S3. No murmurs. No cyanosis or clubbing. No ascites. Pulses: Dorsalis pedis and posterior tibial pulses +1 to +2 both sides. ABDOMEN: Soft. Non-tender. Bowel sounds active. No CVA tenderness. No mass felt. EXTREMITIES: +1 bilateral leg edema. Full range of motion of all extremities, equal. NEUROLOGIC: No focal deficit. Cranial nerves II through XII are grossly intact. No headache, no double vision or headache. SKIN: Not dry. Intact. Turgor-normal. LYMPHATIC: No palpable lymph nodes/no lymphedema. MUSCULOSKELETAL: Normal joints with no swelling. Muscle tone is normal. LAB REVIEW: 05/15/20 04:42 05/15/20 04:42 05/15/20 04:42: Sodium 134.6, Potassium 4.60, Chloride 91.8 L, Carbon Dioxide 38.1 H, Anion Gap 9.30, BUN 38.5 H, Creatinine 1.05, Estimated GFR (MDRD) 51.00, BUN/Creatinine Ratio 36.66, Glucose 87.2, Calcium 10.04, Total Bilirubin 0.40, AST 34.5, ALT 31.2, Alkaline Phosphatase 181.9 H, Total Protein 6.66, Albumin 3.48 L, Globulin 3.18, Albumin/Globulin Ratio 1.09 05/15/20 04:42: PT 28.3 H, INR 2.64 05/15/20 04:42: WBC 9.10, RBC 3.63 L, Hgb 10.1 L, Hct 32.4 L, MCV 89.3, MCH 27.8, MCHC 31.2 L, RDW Coeff of Elie 17.8 H, Plt Count 394, Immature Gran % (Auto) 2.1, Neut % (Auto) 76.6 H, Lymph % (Auto) 13.2, [place] % (Auto) 7.1, Eos % (Auto) 0.8, Baso % (Auto) 0.2, Neut # (Auto) 7.0 H, Lymph # (Auto) 1.2, [place] # (Auto) 0.7, Eos # (Auto) 0.1, Baso # (Auto) 0.0, Immature Gran # (Auto) 0.2 ASSESSMENT: Please see below. 1. Acute respiratory failure. 2. Leg edema. 3. Bilateral pneumonia. 4. End stage COPD. 5. Anxiety. 6. History of DVT and PE. PLAN: 1. Lasix 20 mg IV today. 2. Keep legs elevated. 3. Continue IV antibiotics. 4. Plan for discharge at some point. Plan and coordination of the patient's care discussed in the presence of Award Clerk and nurse. CONDITION: Stable SCRIBED BY: ZO DANG Pile Driver Operator scribed while in presence of service performed by Dr. Rascon/Zuly Henry APRN on 05/15/20 ([id number])
[2020-05-15] MEDS: FLORASTOR PO SCH ×2 (08:53→20:05)
[2020-05-15] MEDS: K-DUR PO SCH ×2 (08:53→17:18)
[2020-05-15] MEDS: MUCINEX PO SCH ×2 (08:53→20:06)
[2020-05-15] MEDS: CLARITIN PO SCH (08:53)
[2020-05-15] MEDS: SODIUM CHLORIDE IV SCH (08:53)
[2020-05-15] MEDS: XANAX PO SCH ×3 (08:53→20:05)
[2020-05-15] MEDS: TOBRAMYCIN SULFATE IV SCH (08:53)
[2020-05-15] MEDS: PREDNISONE PO SCH (08:53)
[2020-05-15] MEDS: FERROUS SULFATE PO SCH (08:53)
[2020-05-15] MEDS: ULTRAM PO SCH ×2 (08:53→20:06)
[2020-05-15] MEDS: COREG PO SCH ×2 (08:54→17:18)
[2020-05-15] MEDS: BRIMONIDINE TARTRATE 0.2% OPTH SOL EACHEYE SCH ×2 (08:54→20:07)
[2020-05-15] MEDS: SYMBICORT 160-4.5 MCG INHALER IH SCH ×2 (08:54→20:07)
[2020-05-15] MEDS ORDERED: LASIX ONE (10:27)
[2020-05-15] MEDS: COUMADIN PO SCH (17:18)
[2020-05-15] MEDS: PHENERGAN WITH CODEINE 6.25/10 MG/5 ML PO PRN (20:08)
[2020-05-16] MEDS: ATROVENT HFA INHALER (PER PUFF-WITH SPACER) IH SCH ×4 (04:55→19:30)
[2020-05-16] MEDS: VENTOLIN HFA (PER PUFF-WITH SPACER) IH SCH ×4 (04:55→19:30)
[2020-05-16 05:22] LABS: PROTHROMBIN TIME 33.7 SEC (9.3-11.0)
[2020-05-16] MEDS: PROTONIX PO SCH ×2 (05:39→17:11)
[2020-05-16] MEDS: LASIX TAB PO SCH (05:40)
[2020-05-16 06:00] LABS: BASOPHILS % (AUTO) 0.1 % (0.0-3.0); EOSINOPHILS # (AUTO) 0.1 K/ul (0.0-0.7); HEMOGLOBIN 9.3 g/dl (12.0-16.0); IMMATURE GRANULOCYTE # (AUTO) 0.3 (0.0-1.0); IMMATURE GRANULOCYTE % (AUTO) 2.8 % (0.0-5.0); LYMPHOCYTES # (AUTO) 1.4 K/uL (0.60-3.4); LYMPHOCYTES % (AUTO) 15.4 (10.0-50.0); MEAN CORPUSCULAR HEMOGLOBIN 28.3 pg (27.0-31.0); MEAN CORPUSCULAR HGB CONC 32.1 (31.8-35.4); MEAN CORPUSCULAR VOLUME 88.1 fl (81.0-99.0); MONOCYTES # (AUTO) 0.6 K/uL (0.4-2.0); NEUTROPHILS # (AUTO) 6.6 K/ul (2.0-6.9); NEUTROPHILS % (AUTO) 73.7 % (42.2-75.2); PLATELET COUNT 378 10^3/uL (140-440); RDW COEFFICIENT OF VARIATION 17.6 % (11.6-14.8); RED BLOOD COUNT 3.29 10^6/ul (4.20-5.40); WHITE BLOOD COUNT 9.01 K/ul (4.6-10.2)
[2020-05-16 06:06] LABS: ALBUMIN 3.12 g/dL (3.5-5.0); ALKALINE PHOSPHATASE 162.3 U/L (53-141); ASPARTATE AMINO TRANSFERASE 34.8 U/L (14-36); BILIRUBIN,TOTAL 0.32 mg/dL (0.2-1.3); BLOOD UREA NITROGEN 34.1 mg/dL (7-17); CALCIUM 9.59 mg/dL (8.4-10.2); CARBON DIOXIDE 39.9 mmol/L (22-30.0); CHLORIDE 92.6 mmol/L (98-107); CREATININE 0.92 mg/dL (0.60-1.30); GLUCOSE 83.6 mg/dL (74-106); POTASSIUM 3.92 mmol/L (3.5-5.1); SODIUM 133.2 mmol/L (134.5-145); TOTAL PROTEIN 6.11 g/dL (6.3-8.2)
[2020-05-16] MEDS ORDERED: LASIX IVP STA (08:38)
[2020-05-16] MEDS: TOBRAMYCIN SULFATE IV SCH (09:01)
[2020-05-16] MEDS: SODIUM CHLORIDE IV SCH (09:01)
[2020-05-16] MEDS: XANAX PO SCH ×3 (09:01→20:36)
[2020-05-16] MEDS: BRIMONIDINE TARTRATE 0.2% OPTH SOL EACHEYE SCH ×2 (09:01→20:37)
[2020-05-16] MEDS: FLORASTOR PO SCH ×2 (09:01→20:36)
[2020-05-16] MEDS: SYMBICORT 160-4.5 MCG INHALER IH SCH ×2 (09:01→20:37)
[2020-05-16] MEDS: MUCINEX PO SCH ×2 (09:02→20:37)
[2020-05-16] MEDS: FERROUS SULFATE PO SCH (09:02)
[2020-05-16] MEDS: DIFLUCAN PO SCH (09:02)
[2020-05-16] MEDS: ULTRAM PO SCH ×2 (09:02→20:36)
[2020-05-16] MEDS: COREG PO SCH ×2 (09:02→17:11)
[2020-05-16] MEDS: PREDNISONE PO SCH (09:02)
[2020-05-16] MEDS: CLARITIN PO SCH (09:02)
[2020-05-16] MEDS: K-DUR PO SCH ×2 (09:02→17:10)
--- NOTE | 2020-05-16 09:18 | PCM.PROG ---
Attending Provider: ATTENDING PROVIDER: Dr. RAISA RASCON This patient is seen with Zuly Henry, Nurse Practitioner. DATE OF SERVICE: 05/16/20 SUBJECTIVE: This 79 year old /WHITE F was hospitalized 05/04/20. The patient is resting comfortably. She is still with cough. She reported burning and itching with urination and whitish discharge. Legs are still swollen. She had Lasix yesterday, REVIEW OF SYSTEMS: CONSTITUTIONAL: No night sweats. No fatigue, malaise, lethargy. No fever or chills. HEENT: Eyes: No visual changes. No eye pain. No eye discharge. ENT: No runny nose. No epistaxis. No sinus pain. No odynophagia. No congestion. RESPIRATORY: Cough. Shortness of breath. No congestion. No hemoptysis. CARDIOVASCULAR: No angina symptoms. No CHF symptoms. No atypical chest pain for CAD. No palpitations. No orthopnea. GASTROINTESTINAL: No abdominal pain. No nausea or vomiting. No diarrhea or constipation. No hematemesis. No hematochezia. GENITOURINARY: Dysuria. Vaginal itching. MUSCULOSKELETAL: No musculoskeletal pain; no joint swelling. NEUROLOGICAL: Awake, alert, oriented to time, place and person. No headache. No neck pain. No syncope. No seizures. No dizziness. PSYCHIATRIC: Not anxious. No depression. No suicidal thoughts. No homicidal thoughts. SKIN: No rash. No lesions. No wounds. ENDOCRINE: No unexplained weight loss. No weight gain. HEMATOLOGIC/LYMPHATIC: No anemia. No purpura. No petechiae. No prolonged or excessive bleeding. No palpable lymph nodes. PHYSICAL EXAMINATION: GENERAL: The patient is awake, alert and oriented, lying/sitting in bed in no distress. VITAL SIGNS: Temperature 98.1 F, Pulse 86, Respiratory Rate 20, BP 149/76, Pulse Ox 99% HEENT: Head normocephalic, atraumatic. Eyes: Extraocular muscles are intact. Pupils are equal, round and reactive to light and accommodation. Ears: No les ions. Nose appeared normal. Throat: No exudate or erythema. NECK: Supple. No JVD, no carotid bruit. No lymphadenopathy or thyromegaly. LUNGS: Diminished breath sounds. Bilateral rhonchi. Percussion note normal. Chest symmetrical. HEART: S1, S2, no S3. No murmurs. No cyanosis or clubbing. No ascites. Pulses: Dorsalis pedis and posterior tibial pulses +1 to +2 both sides. ABDOMEN: Soft. Non-tender. Bowel sounds active. No CVA tenderness. No mass felt. EXTREMITIES: +1 bilateral leg edema. Full range of motion of all extremities, equal. NEUROLOGIC: No focal deficit. Cranial nerves II through XII are grossly intact. No headache, no double vision or headache. SKIN: Not dry. Intact. Turgor-normal. LYMPHATIC: No palpable lymph nodes/no lymphedema. MUSCULOSKELETAL: Normal joints with no swelling. Muscle tone is normal. LAB REVIEW: 05/16/20 05:00 05/16/20 05:00 05/16/20 05:00: Sodium 133.2 L, Potassium 3.92, Chloride 92.6 L, Carbon Dioxide 39.9 H, Anion Gap 4.62, BUN 34.1 H, Creatinine 0.92, Estimated GFR (MDRD) 59.00, BUN/Creatinine Ratio 37.06, Glucose 83.6, Calcium 9.59, Total Bilirubin 0.32, AST 34.8, ALT 28.0, Alkaline Phosphatase 162.3 H, Total Protein 6.11 L, Albumin 3.12 L, Globulin 2.99, Albumin/Globulin Ratio 1.04 05/16/20 05:00: WBC 9.01, RBC 3.29 L, Hgb 9.3 L, Hct 29.0 L, MCV 88.1, MCH 28.3, MCHC 32.1, RDW Coeff of Elie 17.6 H, Plt Count 378, Immature Gran % (Auto) 2.8, Neut % (Auto) 73.7, Lymph % (Auto) 15.4, [place] % (Auto) 7.0, Eos % (Auto) 1.0, Baso % (Auto) 0.1, Neut # (Auto) 6.6, Lymph # (Auto) 1.4, [place] # (Auto) 0.6, Eos # (Auto) 0.1, Baso # (Auto) 0.0, Immature Gran # (Auto) 0.3 05/16/20 05:00: PT 33.7 H D, INR 3.14 ASSESSMENT: Please see below. 1. Bilateral pneumonia. 2. Vaginal candidiasis. 3. Chronic anemia. 4. Leg edema. 5. End stage COPD. 6. Anxiety. 7. History of DVT and PE. PLAN: 1. Repeat UA. 2. Lasix 20 mg IV today. 3. Diflucan 150 mg daily. 4. Elevate legs. Plan and coordination of the patient's care discussed in the presence of Hotel Associate and nurse. CONDITION: Stable SCRIBED BY: ZO DANG Welding Machine Operator Submerged Arc scribed while in presence of service performed by Dr. Rascon/Zuly Henry APRN on 05/16/20 ([id number])
--- NOTE | 2020-05-16 10:27 | PN ---
DATE OF SERVICE: 05/13/2020 SUBJECTIVE: 79 year old white female hospitalized with acute exacerbation of COPD. She is sitting by the side of the bed talking on the phone better. She said yesterday that she didn't feel that good but this morning she ate her breakfast a lot better. REVIEW OF SYSTEMS: CONSTITUTIONAL: No night sweats. No fatigue, malaise, lethargy. No fever or chills. HEENT: Eyes: No visual changes. No eye pain. No eye discharge. ENT: No runny nose. No epistaxis. No sinus pain. No sore throat. No odynophagia. No congestion. RESPIRATORY: Cough productive of mildly yellowish sputum, no congestion. No hemoptysis. No shortness of breath. CARDIOVASCULAR: No angina symptoms. No CHF symptoms. No atypical chest pain for CAD. No palpitations. No PND. No orthopnea. GASTROINTESTINAL: No abdominal pain. No nausea or vomiting. No diarrhea or constipation. No hematemesis. No hematochezia. GENITOURINARY: No urgency. No frequency. No dysuria. No hematuria. No obstructive symptoms. No discharge. No pain. No significant abnormal bleeding. MUSCULOSKELETAL: No musculoskeletal pain; no joint swelling. NEUROLOGICAL: No headache. No neck pain. No syncope. No seizures. No dizziness. PSYCHIATRIC: Not anxious. No depression. No suicidal thoughts. No homicidal thoughts. SKIN: No rash. No lesions. No wounds. ENDOCRINE: No unexplained weight loss. No weight gain. HEMATOLOGIC/LYMPHATIC: No anemia. No purpura. No petechiae. No prolonged or excessive bleeding. No palpable lymph nodes. PHYSICAL EXAMINATION: GENERAL: The patient is oriented to time, place and person. VITAL SIGNS: Temperature 98.3, pulse 90, respiratory rate 20, blood pressure 143/80 and pulse ox 97% on 2 liters. HEENT: Head normocephalic, atraumatic. Eyes: Extraocular muscles are intact. Pupils are equal, round and reactive to light and accommodation. Ears: No lesions. Nose appeared normal. Throat: No exudate or erythema. NECK: Supple. No JVD, no carotid bruit. No lymphadenopathy or thyromegaly. LUNGS: Good air entry with mild wheeze. Clear to auscultation. Percussion note normal. Chest symmetrical. HEART: S1, S2, no S3. No murmurs. No cyanosis or clubbing. No ascites. Pulses: Dorsalis pedis and posterior tibial pulses +1 to +2 bilaterally. ABDOMEN: Soft. Nontender. Bowel sounds active. No CVA tenderness. No mass felt. EXTREMITIES: No edema. Full range of motion of all extremities, equal. NEUROLOGIC: No focal deficit. Cranial nerves II through XII are grossly intact. No headache, no double vision or headache. SKIN: Not dry. Intact. Turgor - normal. LYMPHATIC: No palpable lymph nodes/no lymphedema. MUSCULOSKELETAL: Normal joints with no swelling. Muscle tone is normal. LABS: Hgb 10.7, hct 33, WBC 9,400 normal differential, creatinine 0.9, BUN 38, potassium 4.1. ASSESSMENT: 1. Acute exacerbation of COPD 2. Recurrent pseudomonas pneumonia PLAN: 1. Continue Tobramycin 2. Continue to monitor kidney function and begin trough level 3. The patient's seems to be improving steadily. TIME SPENT: More than 30 minutes. Plan and coordination of the patient's care discussed in the presence of nurse. ANETA
--- NOTE | 2020-05-16 10:41 | PN ---
DATE OF SERVICE: 05/14/2020 SUBJECTIVE: 79 year old white female hospitalized with acute exacerbation of COPD. She has recurrent history of pseudomonas pneumonia. The patient's condition has steadily improved to the point where she is able sit with help at the bedside and talks on the phone now. She still has cough that is productive of sputum that is mild tinged yellowish. The breakfast is better for her and lunch she doesn't have much appetite usually. REVIEW OF SYSTEMS: CONSTITUTIONAL: No night sweats. No fatigue, malaise, lethargy. No fever or chills. HEENT: Eyes: No visual changes. No eye pain. No eye discharge. ENT: No runny nose. No epistaxis. No sinus pain. No sore throat. No odynophagia. No congestion. RESPIRATORY: No cough, no congestion. No hemoptysis. No shortness of breath. CARDIOVASCULAR: No angina symptoms. No CHF symptoms. No atypical chest pain for CAD. No palpitations. No PND. No orthopnea. GASTROINTESTINAL: No abdominal pain. No nausea or vomiting. No diarrhea or constipation. No hematemesis. No hematochezia. GENITOURINARY: No urgency. No frequency. No dysuria. No hematuria. No obstructive symptoms. No discharge. No pain. No significant abnormal bleeding. MUSCULOSKELETAL: No musculoskeletal pain; no joint swelling. NEUROLOGICAL: No headache. No neck pain. No syncope. No seizures. No dizziness. PSYCHIATRIC: Not anxious. No depression. No suicidal thoughts. No homicidal thoughts. SKIN: No rash. No lesions. No wounds. ENDOCRINE: No unexplained weight loss. No weight gain. HEMATOLOGIC/LYMPHATIC: No anemia. No purpura. No petechiae. No prolonged or excessive bleeding. No palpable lymph nodes. PHYSICAL EXAMINATION: VITAL SIGNS: Temperature 98.3, pulse 93, respiratory rate 14, blood pressure 123/68 and pulse ox 98%. HEENT: Head normocephalic, atraumatic. Eyes: Extraocular muscles are intact. Pupils are equal, round and reactive to light and accommodation. Ears: No lesions. Nose appeared normal. Throat: No exudate or erythema. NECK: Supple. No JVD, no carotid bruit. No lymphadenopathy or thyromegaly. LUNGS: Decreased breath sounds. Clear to auscultation. Percussion note normal. Chest symmetrical. HEART: S1, S2, no S3. No murmurs. No cyanosis or clubbing. No ascites. Pulses: Dorsalis pedis and posterior tibial pulses +1 to +2 bilaterally. ABDOMEN: Soft. Nontender. Bowel sounds active. No CVA tenderness. No mass felt. EXTREMITIES: No edema. Full range of motion of all extremities, equal. NEUROLOGIC: No focal deficit. Cranial nerves II through XII are grossly intact. No headache, no double vision or headache. SKIN: Not dry. Intact. Turgor - normal. LYMPHATIC: No palpable lymph nodes/no lymphedema. MUSCULOSKELETAL: Normal joints with no swelling. Muscle tone is normal. LABS: hgb 10.1, hct 31, WBC 7,707, Creatinine 1, BUN 44 ASSESSMENT: 1. Acute exacerbation of COPD, resolved PLAN: 1. Continue Tobramycin 2. Mild small dose of steroids 3. INR 2.4 4. Tobramycin and kidney functions are stable TIME SPENT: More than 30 minutes. Plan and coordination of the patient's care discussed in the presence of nurse. ANETA
[2020-05-16] MEDS: PHENERGAN WITH CODEINE 6.25/10 MG/5 ML PO PRN (20:37)
[2020-05-17] MEDS: VENTOLIN HFA (PER PUFF-WITH SPACER) IH SCH ×4 (04:45→19:33)
[2020-05-17] MEDS: ATROVENT HFA INHALER (PER PUFF-WITH SPACER) IH SCH ×4 (04:45→19:33)
[2020-05-17] MEDS: LASIX TAB PO SCH (05:47)
[2020-05-17] MEDS: PROTONIX PO SCH ×2 (05:47→17:56)
[2020-05-17 05:49] LABS: BASOPHILS % (AUTO) 0.2 % (0.0-3.0); EOSINOPHILS # (AUTO) 0.1 K/ul (0.0-0.7); EOSINOPHILS % (AUTO) 0.7 % (0.0-7.0); HEMATOCRIT 28.9 % (37.0-47.0); HEMOGLOBIN 9.4 g/dl (12.0-16.0); IMMATURE GRANULOCYTE # (AUTO) 0.2 (0.0-1.0); IMMATURE GRANULOCYTE % (AUTO) 1.8 % (0.0-5.0); LYMPHOCYTES # (AUTO) 1.2 K/uL (0.60-3.4); LYMPHOCYTES % (AUTO) 13.2 (10.0-50.0); MEAN CORPUSCULAR HEMOGLOBIN 28.6 pg (27.0-31.0); MEAN CORPUSCULAR HGB CONC 32.5 (31.8-35.4); MEAN CORPUSCULAR VOLUME 87.8 fl (81.0-99.0); MONOCYTES # (AUTO) 0.7 K/uL (0.4-2.0); MONOCYTES % (AUTO) 7.2 (0-10); NEUTROPHILS % (AUTO) 76.9 % (42.2-75.2); PLATELET COUNT 371 10^3/uL (140-440); RDW COEFFICIENT OF VARIATION 17.8 % (11.6-14.8); RED BLOOD COUNT 3.29 10^6/ul (4.20-5.40); WHITE BLOOD COUNT 9.07 K/ul (4.6-10.2)
[2020-05-17 06:02] LABS: ALANINE AMINOTRANSFERASE 27.1 U/L (0-35); ALBUMIN 3.34 g/dL (3.5-5.0); ALKALINE PHOSPHATASE 154.4 U/L (53-141); ASPARTATE AMINO TRANSFERASE 30.1 U/L (14-36); BILIRUBIN,TOTAL 0.37 mg/dL (0.2-1.3); BLOOD UREA NITROGEN 32.6 mg/dL (7-17); CALCIUM 9.8 mg/dL (8.4-10.2); CARBON DIOXIDE 39.3 mmol/L (22-30.0); CHLORIDE 91.9 mmol/L (98-107); GLUCOSE 98.9 mg/dL (74-106); POTASSIUM 3.39 mmol/L (3.5-5.1); TOTAL PROTEIN 6.34 g/dL (6.3-8.2)
[2020-05-17] MEDS: SODIUM CHLORIDE IV SCH (08:41)
[2020-05-17] MEDS: SYMBICORT 160-4.5 MCG INHALER IH SCH ×2 (08:41→21:08)
[2020-05-17] MEDS: TOBRAMYCIN SULFATE IV SCH (08:41)
[2020-05-17] MEDS: XANAX PO SCH ×3 (08:45→21:07)
[2020-05-17] MEDS: FERROUS SULFATE PO SCH (08:45)
[2020-05-17] MEDS: CLARITIN PO SCH (08:45)
[2020-05-17] MEDS: PREDNISONE PO SCH (08:45)
[2020-05-17] MEDS: MUCINEX PO SCH ×2 (08:45→21:07)
[2020-05-17] MEDS: FLORASTOR PO SCH ×2 (08:45→21:07)
[2020-05-17] MEDS: COREG PO SCH ×2 (08:45→17:56)
[2020-05-17] MEDS: K-DUR PO SCH ×2 (08:45→17:56)
[2020-05-17] MEDS: ULTRAM PO SCH ×2 (08:45→21:07)
[2020-05-17] MEDS: DIFLUCAN PO SCH (08:45)
[2020-05-17] MEDS: BRIMONIDINE TARTRATE 0.2% OPTH SOL EACHEYE SCH ×2 (08:46→21:08)
--- NOTE | 2020-05-17 08:56 | PN ---
DATE OF SERVICE: 05/16/2020 SUBJECTIVE: The patient was seen and examined with the Nurse Practitioner. The patient's condition is stable on Tobramycin. The patient's condition is improving some. Her appetite has improved some but the prognosis overall is not good. The patient has been talked about Hospice and she is considering the Hospice program. TIME SPENT: More than 30 minutes. Plan and coordination of the patient's care discussed in the presence of nurse. ANETA
--- NOTE | 2020-05-17 10:13 | PN ---
DATE OF SERVICE: 05/15/20 SUBJECTIVE: The patient was seen and examined with the nurse practitioner. Condition has improved steadily but the patient's prognosis is very poor. She has severe chronic lung disease with chronic bronchitis, persistent Pseudomonas pneumonia. 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 Prognosis is poor. She has been explained about hospice and thinking about it at home. The patient's both daughters are in the hospital. The is unable to take care of her and she requires full attention. The patient is refusing to go to the assisted or assisted living. Prognosis is guarded/poor. TIME SPENT: More than 30 minutes. Plan and coordination of the patient's care discussed in the presence of nurse. ANETA
[2020-05-17 11:09] LABS: BILIRUBIN,URINE Negative (NEGATIVE); CLARITY,URINE Clear (CLEAR); COLOR,URINE Yellow (YELLOW); GLUCOSE, URINE (UA) Negative (NEGATIVE); KETONES,URINE Negative (NEGATIVE); LEUKOCYTE ESTERASE ,URINE Negative (NEGATIVE); NITRITE,URINE Negative (NEGATIVE); PROTEIN,URINE Negative (NEGATIVE); URINE, BLOOD Trace-intact (NEGATIVE); UROBILINOGEN,URINE 0.2 (0.2)
[2020-05-17 11:13] LABS: URINE RBC, MICROSCOPIC 0-2 (0-2)
[2020-05-17] MEDS ORDERED: COUMADIN PO STA (17:45)
[2020-05-17] MEDS: COUMADIN PO SCH (18:40)
[2020-05-17] MEDS: PHENERGAN WITH CODEINE 6.25/10 MG/5 ML PO PRN (21:08)
[2020-05-17 22:09] VITALS: TEMP 97.8
[2020-05-18] MEDS: VENTOLIN HFA (PER PUFF-WITH SPACER) IH SCH ×2 (04:40→10:19)
[2020-05-18] MEDS: ATROVENT HFA INHALER (PER PUFF-WITH SPACER) IH SCH ×2 (04:40→10:19)
[2020-05-18] MEDS: PROTONIX PO SCH (05:45)
[2020-05-18] MEDS: LASIX TAB PO SCH (05:45)
[2020-05-18 05:50] VITALS: BP 153/78
[2020-05-18 05:50] LABS: BASOPHILS % (AUTO) 0.3 % (0.0-3.0); EOSINOPHILS # (AUTO) 0.1 K/ul (0.0-0.7); EOSINOPHILS % (AUTO) 0.7 % (0.0-7.0); HEMATOCRIT 30.7 % (37.0-47.0); HEMOGLOBIN 9.8 g/dl (12.0-16.0); IMMATURE GRANULOCYTE # (AUTO) 0.2 (0.0-1.0); IMMATURE GRANULOCYTE % (AUTO) 2.2 % (0.0-5.0); LYMPHOCYTES # (AUTO) 1.3 K/uL (0.60-3.4); LYMPHOCYTES % (AUTO) 15.2 (10.0-50.0); MEAN CORPUSCULAR HEMOGLOBIN 28.2 pg (27.0-31.0); MEAN CORPUSCULAR HGB CONC 31.9 (31.8-35.4); MEAN CORPUSCULAR VOLUME 88.5 fl (81.0-99.0); MONOCYTES # (AUTO) 0.7 K/uL (0.4-2.0); NEUTROPHILS # (AUTO) 6.4 K/ul (2.0-6.9); NEUTROPHILS % (AUTO) 73.6 % (42.2-75.2); PLATELET COUNT 382 10^3/uL (140-440); RDW COEFFICIENT OF VARIATION 18.1 % (11.6-14.8); RED BLOOD COUNT 3.47 10^6/ul (4.20-5.40); WHITE BLOOD COUNT 8.71 K/ul (4.6-10.2)
[2020-05-18 06:06] LABS: ALANINE AMINOTRANSFERASE 26.6 U/L (0-35); ALBUMIN 3.38 g/dL (3.5-5.0); ALKALINE PHOSPHATASE 159.8 U/L (53-141); ASPARTATE AMINO TRANSFERASE 35.4 U/L (14-36); BILIRUBIN,TOTAL 0.39 mg/dL (0.2-1.3); BLOOD UREA NITROGEN 31.6 mg/dL (7-17); CALCIUM 9.88 mg/dL (8.4-10.2); CARBON DIOXIDE 39.3 mmol/L (22-30.0); CHLORIDE 94.3 mmol/L (98-107); CREATININE 1.05 mg/dL (0.60-1.30); GLUCOSE 74.8 mg/dL (74-106); POTASSIUM 4.18 mmol/L (3.5-5.1); SODIUM 135.6 mmol/L (134.5-145); TOTAL PROTEIN 6.37 g/dL (6.3-8.2)
[2020-05-18 06:57] LABS: PROTHROMBIN TIME 23.9 SEC (9.3-11.0)
--- NOTE | 2020-05-18 09:27 | PCM.PROG ---
Attending Provider: ATTENDING PROVIDER: Dr. RAISA RASCON This patient is seen with Zuly Henry, Nurse Practitioner. DATE OF SERVICE: 05/18/20 SUBJECTIVE: This 79 year old /WHITE F was hospitalized 05/04/20. The patient is sitting on side of bed. She is eating well. She is planning on going home today. REVIEW OF SYSTEMS: CONSTITUTIONAL: Weakness. No night sweats. No fatigue, malaise, lethargy. No fever or chills. HEENT: Eyes: No visual changes. No eye pain. No eye discharge. ENT: No runny nose. No epistaxis. No sinus pain. No odynophagia. No congestion. RESPIRATORY: Cough. Shortness of breath. No hemoptysis. CARDIOVASCULAR: No angina symptoms. No CHF symptoms. No atypical chest pain for CAD. No palpitations. No orthopnea.. GASTROINTESTINAL: No abdominal pain. No nausea or vomiting. No diarrhea or constipation. No hematemesis. No hematochezia. GENITOURINARY: No urgency. No frequency. No dysuria. No hematuria. No obstructive symptoms. No discharge. No pain. No significant abnormal bleeding. MUSCULOSKELETAL: No musculoskeletal pain; no joint swelling. NEUROLOGICAL: Awake, alert, oriented to time, place and person. No headache. No neck pain. No syncope. No seizures. No dizziness. PSYCHIATRIC: Not anxious. No depression. No suicidal thoughts. No homicidal thoughts. SKIN: No rash. No lesions. No wounds. ENDOCRINE: No unexplained weight loss. No weight gain. HEMATOLOGIC/LYMPHATIC: No anemia. No purpura. No petechiae. No prolonged or excessive bleeding. No palpable lymph nodes. PHYSICAL EXAMINATION: GENERAL: The patient is awake, alert and oriented, sitting on side of bed in no distress. VITAL SIGNS: Temperature 97.8 F, Pulse 90, Respiratory Rate 18, BP 153/78, Pulse Ox 96% HEENT: Head normocephalic, atraumatic. Eyes: Extraocular muscles are intact. Pupils are equal, round and reactive to light and accommodation. Ears: No lesions. Nose appeared normal. Throat: No exudate or erythema. NECK: Supple. No JVD, no carotid bruit. No lymphadenopathy or thyromegaly. LUNGS: Decreased breath sounds. Upper airway rhonchi. Percussion note normal. Chest symmetrical. HEART: S1, S2, no S3. No murmurs. No cyanosis or clubbing. No ascites. Pulses: Dorsalis pedis and posterior tibial pulses +1 to +2 both sides. ABDOMEN: Soft. Non-tender. Bowel sounds active. No CVA tenderness. No mass felt. EXTREMITIES: No edema. Full range of motion of all extremities, equal. NEUROLOGIC: No focal deficit. Cranial nerves II through XII are grossly intact. No headache, no double vision or headache. SKIN: Not dry. Intact. Turgor-normal. LYMPHATIC: No palpable lymph nodes/no lymphedema. MUSCULOSKELETAL: Normal joints with no swelling. Muscle tone is normal. LAB REVIEW: 05/18/20 05:26 05/18/20 05:26 05/18/20 05:26: Sodium 135.6, Potassium 4.18, Chloride 94.3 L, Carbon Dioxide 39.3 H, Anion Gap 6.18, BUN 31.6 H, Creatinine 1.05, Estimated GFR (MDRD) 51.00, BUN/Creatinine Ratio 30.09, Glucose 74.8, Calcium 9.88, Total Bilirubin 0.39, AST 35.4, ALT 26.6, Alkaline Phosphatase 159.8 H, Total Protein 6.37, Albumin 3.38 L, Globulin 2.99, Albumin/Globulin Ratio 1.13 05/18/20 05:26: WBC 8.71, RBC 3.47 L, Hgb 9.8 L, Hct 30.7 L, MCV 88.5, MCH 28.2, MCHC 31.9, RDW Coeff of Elie 18.1 H, Plt Count 382, Immature Gran % (Auto) 2.2, Neut % (Auto) 73.6, Lymph % (Auto) 15.2, [place] % (Auto) 8.0, Eos % (Auto) 0.7, Baso % (Auto) 0.3, Neut # (Auto) 6.4, Lymph # (Auto) 1.3, [place] # (Auto) 0.7, Eos # (Auto) 0.1, Baso # (Auto) 0.0, Immature Gran # (Auto) 0.2 05/18/20 05:26: PT 23.9 H D, INR 2.23 05/17/20 10:34: Urine Color Yellow, Urine Clarity Clear, Urine pH 6.0, Ur Specific [place] 1.015, Urine Protein Negative, Urine Glucose (UA) Negative, Urine Ketones Negative, Urine Blood Trace-intact H, Urine Nitrite Negative, Urine Bilirubin Negative, Urine Urobilinogen 0.2, Ur Leukocyte Esterase Negative, Urine Microscopic RBC 0-2, Ur Squamous Epith Cells 2-5 ASSESSMENT: Please see below. 1. Bilateral pneumonia. 2. Vaginal candidiasis. 3. Chronic anemia. 4. Leg edema. 5. End stage COPD. 6. Anxiety. 7. History of DVT and PE. PLAN: 1. Discharge home. 2. Prednisone 2 mg for 2 days, 10 mg for 5 days then resume 5 mg daily. 3. All other medications to stay the same. 4. Home nebulizer. 5. Home oxygen. Prognosis is poor given advanced COPD. Plan and coordination of the patient's care discussed in the presence of Terminal Gauger and nurse. CONDITION: Stable SCRIBED BY: ZO DANG Project Management Analyst scribed while in presence of service performed by Dr. Rascon/Zuly Henry APRN on 05/18/20 ([id number])
[2020-05-18] MEDS: MUCINEX PO SCH (09:30)
[2020-05-18] MEDS: FLORASTOR PO SCH (09:30)
[2020-05-18] MEDS: PREDNISONE PO SCH (09:30)
[2020-05-18] MEDS: TOBRAMYCIN SULFATE IV SCH (09:30)
[2020-05-18] MEDS: SODIUM CHLORIDE IV SCH (09:30)
[2020-05-18] MEDS: SYMBICORT 160-4.5 MCG INHALER IH SCH (09:31)
[2020-05-18] MEDS: BRIMONIDINE TARTRATE 0.2% OPTH SOL EACHEYE SCH (09:31)
[2020-05-18] MEDS: XANAX PO SCH (09:31)
[2020-05-18] MEDS: ULTRAM PO SCH (09:31)
[2020-05-18] MEDS: FERROUS SULFATE PO SCH (09:31)
[2020-05-18] MEDS: COREG PO SCH (09:31)
[2020-05-18] MEDS: CLARITIN PO SCH (09:31)
[2020-05-18] MEDS: DIFLUCAN PO SCH (09:31)
[2020-05-18] MEDS: K-DUR PO SCH (09:31)
--- NOTE | 2020-05-18 12:34 | CM.DICTOOL ---
ADMISSION: 05/04/20 17:01 FINAL DIAGNOSIS BILATERAL PNEUMONIA VAGINAL CANDIDIASIS CHRONIC ANEMIA LEG EDEMA END STAGE COPD ANXIETY HISTORY OF DVT AND PE ACUTE RESPIRATORY FAILURE ACUTE COPD EXACERBATION GENERALIZED WEAKNESS* HX: BILATERAL PNEUMONIA, PERSISTENT HISTORY OF PSEUDOMONAS AERUGINOSA PER SPUTUM CULTURE WHICH I DO BELIEVE SHE IS COLONIZED SEVERE COPD, OXYGEN AND STEROID DEPENDENT CHRONIC RESPIRATORY FAILURE EMPHYSEMA, SEVERE PER CT* PULMONARY FIBROSIS PULMONARY NODULE, FOLLOWED BY DR. OLIVAS DVT/PE (ON COUMADIN) HYPERTENSION CHRONIC ANEMIA ANXIETY GERD DEGENERATIVE DISC DISEASE SMOKER/TOBACCO USE- OCCASIONAL NOW ARTHRITIS LT SHOULDER POLYARTHRITIS RECURRENT GOUT COMPRESSION FRACTURE, T9 (STABLE) OSTEOPENIA SURGICAL HX: HYSTERECTOMY APPENDECTOMY CATARACT EXTRACTION, LEFT LAST VITALS Temp Pulse Resp BP Pulse Ox 97.8 F 90 18 153/78 H 96 05/18/20 05:46 05/18/20 05:46 05/18/20 05:46 05/18/20 05:46 05/18/20 05:46 TAKE THESE MEDICATIONS AT HOME Acetaminophen (Acetaminophen 325 Mg Tablet) 650 mg PO Q4H PRN PRN Reason: Pain Alprazolam (Alprazolam 0.25 Mg Tablet) 0.25 mg PO TID [facility] Last Admin: 05/18/20 09:31 Dose: 0.25 mg Documented by: Brimonidine Tartrate (Brimonidine Tartrate 0.2% 5 Ml Btl) 1 drop EACHEYE BID [facility] Last Admin: 05/18/20 09:31 Dose: 1 drop Documented by: Carvedilol (Carvedilol 3.125 Mg Tablet) 3.125 mg PO BIDWM [facility] Last Admin: 05/18/20 09:31 Dose: 3.125 mg Documented by: Ferrous Sulfate (Ferrous Sulfate 324 Mg Tablet.Dr) 324 mg PO DAILY [facility] Last Admin: 05/18/20 09:31 Dose: 324 mg Documented by: Fluconazole (Fluconazole 150 Mg Tablet) 150 mg PO DAILY [facility] START 05/19/20 X 2 MORE DAYS -- ( NEW) Last Admin: 05/18/20 09:31 Dose: 150 mg Documented by: Furosemide (Furosemide 20 Mg Tablet) 20 mg PO QDAC [facility] Last Admin: 05/18/20 05:45 Dose: 20 mg Documented by: Guaifenesin (Guaifenesin 600 Mg Tablet.Er) 600 mg PO Q12HR [facility] Last Admin: 05/18/20 09:30 Dose: 600 mg Documented by: Loratadine (Loratadine 10 Mg Tablet) 10 mg PO DAILY [facility] Last Admin: 05/18/20 09:31 Dose: 10 mg Documented by: Meclizine HCl (Meclizine Hcl 25 Mg Tablet) 25 mg PO TID PRN -- ( NEW) PRN Reason: Vertigo Last Admin: 05/14/20 12:54 Dose: 25 mg Documented by: Pantoprazole Sodium (Pantoprazole Sodium 40 Mg Tablet.Dr) 40 mg PO BIDAC [facility] Last Admin: 05/18/20 05:45 Dose: 40 mg Documented by: Potassium Chloride (Potassium Chloride 20 Meq Tab) 10 meq PO DAILYWM [facility] Last Admin: 05/18/20 09:31 Dose: 20 meq Documented by: Prednisone (Prednisone 20 Mg Tablet) 20 mg PO DAILYWM [facility] ( START 05/19/20) X 2 MORE DAYS, 10 MG DAILY X 5 DAYS, THEN CONTINUE 5 MG DAILY -- ( CHANGED) Last Admin: 05/18/20 09:30 Dose: 20 mg Documented by: Promethazine HCl/Codeine (Promethazine/Codeine Syrup 6.25/10 Mg/5 Ml Disp.Syringe) 10 ml PO Q6H PRN PRN Reason: Cough Last Admin: 05/17/20 21:08 Dose: 10 ml Documented by: Saccharomyces Boulardii (Saccharomyces Boulardii 250 Mg Capsule) 250 mg PO BID [facility] Last Admin: 05/18/20 09:30 Dose: 250 mg Documented by: Tramadol HCl (Tramadol Hcl 50 Mg Tablet) 50 mg PO BID [facility] Last Admin: 05/18/20 09:31 Dose: 50 mg Documented by: Warfarin Sodium (Warfarin Sodium 3 Mg Tablet) 3 mg PO QPM [facility] Last Admin: 05/17/20 18:40 Dose: Not Given Documented by: DUONEB PER NEBULIZER 3 ML TID PULIMCORT 0.5 MG PER NEBULIZER BID ALLERGIES ciprofloxacin [From Cipro] Adverse Reaction (Intermediate, Verified 03/25/20 13:38) acetylcysteine [From Mucomyst] Adverse Reaction (Verified 03/25/20 13:38) hydrocodone Adverse Reaction (Verified 03/25/20 13:38) Abdominal Pain gi cocktail Adverse Reaction (Uncoded 02/28/20 20:24) mucomyst Adverse Reaction (Uncoded 02/28/20 20:24) Head pressure DISCONTINUED MEDICATIONS NONE NEW PRESCRIPTIONS: Prednisone 20 mg PO DAILYWM OLVIN ( START 05/19/20) X 2 MORE DAYS, 10 MG DAILY X 5 DAYS, THEN CONTINUE 5 MG DAILY MECLIZINE 25 MG PO TID PRN DIFLUCAN 150 MG X 2 MORE DAYS ( START 05/19/2020) SMOKING: SMOKING CESSATION DISEASE SPECIFIC EDUCATION: PNEUMONIA SEVERE COPD VAGINAL CANDIDIASIS BLEEDING PRECAUTIONS COVID - 19 LAB REVIEW: 05/18/20 05:26 05/18/20 05:26 05/18/20 05:26: Sodium 135.6, Potassium 4.18, Chloride 94.3 L, Carbon Dioxide 39.3 H, Anion Gap 6.18, BUN 31.6 H, Creatinine 1.05, Estimated GFR (MDRD) 51.00, BUN/Creatinine Ratio 30.09, Glucose 74.8, Calcium 9.88, Total Bilirubin 0.39, AST 35.4, ALT 26.6, Alkaline Phosphatase 159.8 H, Total Protein 6.37, Albumin 3.38 L, Globulin 2.99, Albumin/Globulin Ratio 1.13 05/18/20 05:26: WBC 8.71, RBC 3.47 L, Hgb 9.8 L, Hct 30.7 L, MCV 88.5, MCH 28.2, MCHC 31.9, RDW Coeff of Elie 18.1 H, Plt Count 382, Immature Gran % (Auto) 2.2, Neut % (Auto) 73.6, Lymph % (Auto) 15.2, [place] % (Auto) 8.0, Eos % (Auto) 0.7, Baso % (Auto) 0.3, Neut # (Auto) 6.4, Lymph # (Auto) 1.3, [place] # (Auto) 0.7, Eos # (Auto) 0.1, Baso # (Auto) 0.0, Immature Gran # (Auto) 0.2 05/18/20 05:26: PT 23.9 H D, INR 2.23 05/17/20 10:34: Urine Color Yellow, Urine Clarity Clear, Urine pH 6.0, Ur Specific [place] 1.015, Urine Protein Negative, Urine Glucose (UA) Negative, Urine Ketones Negative, Urine Blood Trace-intact H, Urine Nitrite Negative, Urine Bilirubin Negative, Urine Urobilinogen 0.2, Ur Leukocyte Esterase Negative, Urine Microscopic RBC 0-2, Ur Squamous Epith Cells 2-5 PLAN: DISCHARGE HOME TODAY: MAY 18, [address] [facility] SN DIET: REGULAR TOLERATED ACTIVITY: GRADUALLY RESUME TOLERATED WITH ROLLATOR. FREQUENT REST PERIODS BUT DO GET UP AND WALK IN HOME FREQUENTLY . STAY HOME EXCEPT FOR MEDICAL APPOINTMENTS BLEEDING PRECAUTIONS DUE TO COUMADIN USE OXYGEN FOR ALL ACTIVITY 3 L/M AT REST MAY INCREASE TO 4 L/M FOR ACTIVITY [facility] TO RESUME: NURSING VISITS (ASSESSMENT, VITAL SIGNS, INCLUDING PULSE OXIMETRY [facility] TO CHECK PT/INR WEEKLY MD FOLLOW UP: AN APPOINTMENT IS SCHEDULED WITH DR. RASCON/JAZZMINE CHEW APRN/JANE LYONS APRN ON TUESDAY, MAY 26, 2020 @ 1130 DR. OLIVAS, RESPIRATORY DISEASE FOLLOW UP ORDERED CODE STATUS: DO NOT RESUSCITATE MRS. STEINBERG REMAINS ALERT AND ORIENTED X 4. SHE HAS REMAINED PLEASANT AND TALKATIVE. SHE HAS HAD EPISODES OF BEING LETHARGIC AND SKIN COLOR WAS ASHENED /YELLOWISH WITH EYES SETTING UP WARDS. MEDICAL TEAM HAS DISCUSSED END-STAGE ASPECTS OF PULMONARY STATUS. SHE USES OXYGEN AT 3 L/M PER N/C AT REST AND 4 L/M WITH ACTIVITY. LUNGS COURSE AND DIMINISHED WITH YELLOW AND GREEN SPUTUM. EXERTIONAL DYSPNEA AND TAKES SEVERAL MINUTES TO RECOVER. SKIN WARM AND DRY AND INTACT EXCEPT SCATTERED BRUISING TO ARMS AND LEGS, WITH SOME JULIET DARKER. TRACE EDEMA TO LEGS NOW. LT HAND WITH SLIGHT PUFFINESS, NO REDNESS, NO PAIN TO HAND OR WRIST. FLUID AND NUTRITIONAL INTAKE IS FAIR TO GOOD. SHE IS CONTINENT OF BOWEL AND BLADDER. LAST BM 05/18/2020 . 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 AND DTR ASSIST WHEN NEEDED. DAUGHTERS HAVE BEEN SICK AND NOT ABLE TO ASSIST NOW. MRS STEINBERG INSISTS ON GOING HOME AND DOES NOT WANT PENITENTIARY/ REHAB PLACEMENT, SHE ALSO REFUSES ANY HOMEMAKING SERVICES. SHE HAS BEEN USING A BSC AND HAS DEMONSTRATED THE ABILITY TO TAKE SELF TO THE BATHROOM AND ONCE SHE EMPTIED HER BSC HERSELF, THOUGH SHE WAS INSTRUCTED TO ALLOW STAFF TO PERFORM. SHE HAS AGREED TO CONTINUE, SHE HAD PRIOR TO LAST HOSPITALIZATIONS, A SN WITH [facility], HOWEVER HAS REFUSED THERAPY. MD JAZZMINE SMILEY APRN ALYCE HANNAN, APRN
--- NOTE | 2020-05-19 08:24 | DS ---
DATE OF SERVICE: 05/18/2020 FINAL DIAGNOSIS: BILATERAL PNEUMONIA VAGINAL CANDIDIASIS CHRONIC ANEMIA LEG EDEMA END STAGE COPD ANXIETY HISTORY OF DVT AND PE ACUTE RESPIRATORY FAILURE ACUTE COPD EXACERBATION GENERALIZED WEAKNESS* HISTORY: BILATERAL PNEUMONIA, PERSISTENT HISTORY OF PSEUDOMONAS AERUGINOSA PER SPUTUM CULTURE WHICH I DO BELIEVE SHE IS COLONIZED SEVERE COPD, OXYGEN AND STEROID DEPENDENT CHRONIC RESPIRATORY FAILURE EMPHYSEMA, SEVERE PER CT* PULMONARY FIBROSIS PULMONARY NODULE, FOLLOWED BY DR. OLIVAS DVT/PE (ON COUMADIN) HYPERTENSION CHRONIC ANEMIA ANXIETY GERD DEGENERATIVE DISC DISEASE SMOKER/TOBACCO USE- OCCASIONAL NOW ARTHRITIS LT SHOULDER POLYARTHRITIS RECURRENT GOUT COMPRESSION FRACTURE, T9 (STABLE) OSTEOPENIA SURGICAL HX: HYSTERECTOMY APPENDECTOMY CATARACT EXTRACTION, LEFT LAST VITALS: Temp Pulse Resp BP Pulse Ox 97.8 F 90 18 153/78 H 96 05/18/20 05:46 05/18/20 05:46 05/18/20 05:46 05/18/20 05:46 05/18/20 05:46 DISCHARGE INSTRUCTIONS: DISCHARGE HOME TODAY: MAY 18, 2020 HOME WITH [facility] BLEEDING PRECAUTIONS DUE TO COUMADIN. USE OXYGEN FOR ALL ACTIVITY 3 L/M AT REST MAY INCREASE TO 4 L/M FOR ACTIVITY. [facility] TO RESUME: NURSING VISITS (ASSESSMENT, VITAL SIGNS, INCLUDING PULSE OXIMETRY. [facility] TO CHECK PT/INR WEEKLY. MD FOLLOW UP: AN APPOINTMENT IS SCHEDULED WITH DR. RASCON/JAZZMINE CHEW APRN/JANE LYONS APRN ON FRIDAY, MAY 26, 2020 @ 1130 DR. OLIVAS, RESPIRATORY DISEASE FOLLOW UP ORDERED. CODE STATUS: DO NOT RESUSCITATE TAKE THESE MEDICATIONS AT HOME: Acetaminophen (Acetaminophen 325 Mg Tablet) 650 mg PO Q4H PRN PRN Reason: Pain Alprazolam (Alprazolam 0.25 Mg Tablet) 0.25 mg PO TID [facility], [facility] Last Admin: 05/18/20 09:31 Dose: 0.25 mg Documented by: Brimonidine Tartrate (Brimonidine Tartrate 0.2% 5 Ml Btl) 1 drop EACHEYE BID [facility], [facility]–1983 Last Admin: 05/18/20 09:31 Dose: 1 drop Documented by: Carvedilol (Carvedilol 3.125 Mg Tablet) 3.125 mg PO BIDWM [facility], [facility]1983 Last Admin: 05/18/20 09:31 Dose: 3.125 mg Documented by: Ferrous Sulfate (Ferrous Sulfate 324 Mg Tablet.) 324 mg PO DAILY [facility], [facility] Last Admin: 05/18/20 09:31 Dose: 324 mg Documented by: Fluconazole (Fluconazole 150 Mg Tablet) 150 mg PO DAILY [facility], [facility]1983 START 05/19/20 X 2 MORE DAYS -- ( NEW) Last Admin: 05/18/20 09:31 Dose: 150 mg Documented by: Furosemide (Furosemide 20 Mg Tablet) 20 mg PO QDAC [facility], [facility]1983 Last Admin: 05/18/20 05:45 Dose: 20 mg Documented by: Guaifenesin (Guaifenesin 600 Mg Tablet.Er) 600 mg PO Q12HR [facility], [facility] Last Admin: 05/18/20 09:30 Dose: 600 mg Documented by: Loratadine (Loratadine 10 Mg Tablet) 10 mg PO DAILY [facility], [facility] Last Admin: 05/18/20 09:31 Dose: 10 mg Documented by: Meclizine HCl (Meclizine Hcl 25 Mg Tablet) 25 mg PO TID PRN -- ( NEW) PRN Reason: Vertigo Last Admin: 05/14/20 12:54 Dose: 25 mg Documented by: Pantoprazole Sodium (Pantoprazole Sodium 40 Mg Tablet.) 40 mg PO BIDAC [facility], [facility] Last Admin: 05/18/20 05:45 Dose: 40 mg Documented by: Potassium Chloride (Potassium Chloride 20 Meq Tab) 10 meq PO DAILYWM [facility], [facility] Last Admin: 05/18/20 09:31 Dose: 20 meq Documented by: Prednisone (Prednisone 20 Mg Tablet) 20 mg PO DAILYWM [facility], [facility] ( START 05/19/20) X 2 MORE DAYS, 10 MG DAILY X 5 DAYS, THEN CONTINUE 5 MG DAILY -- ( CHANGED) Last Admin: 05/18/20 09:30 Dose: 20 mg Documented by: Promethazine HCl/Codeine (Promethazine/Codeine Syrup 6.25/10 Mg/5 Ml Disp.Syringe) 10 ml PO Q6H PRN PRN Reason: Cough Last Admin: 05/17/20 21:08 Dose: 10 ml Documented by: Saccharomyces Boulardii (Saccharomyces Boulardii 250 Mg Capsule) 250 mg PO BID [facility], [facility] Last Admin: 05/18/20 09:30 Dose: 250 mg Documented by: Tramadol HCl (Tramadol Hcl 50 Mg Tablet) 50 mg PO BID [facility], [facility] Last Admin: 05/18/20 09:31 Dose: 50 mg Documented by: Warfarin Sodium (Warfarin Sodium 3 Mg Tablet) 3 mg PO QPM [facility] Last Admin: 05/17/20 18:40 Dose: Not Given Documented by: DUONEB PER NEBULIZER 3 ML TID PULMICORT 0.5 MG PER NEBULIZER BID ALLERGIES: ciprofloxacin [From Cipro] Adverse Reaction (Intermediate, Verified 03/25/20 13:38) acetylcysteine [From Mucomyst] Adverse Reaction (Verified 03/25/20 13:38) hydrocodone Adverse Reaction (Verified 03/25/20 13:38) Abdominal Pain GI cocktail Adverse Reaction (Uncoded 02/28/20 20:24) Mucomyst Adverse Reaction (Uncoded 02/28/20 20:24) Head pressure DISCONTINUED MEDICATIONS: NONE NEW PRESCRIPTIONS: Prednisone 20 mg PO DAILY WM OLVIN ( START 05/19/20) X 2 MORE DAYS, 10 MG DAILY X 5 DAYS, THEN CONTINUE 5 MG DAILY MECLIZINE 25 MG PO TID PRN DIFLUCAN 150 MG X 2 MORE DAYS ( START 05/19/2020) SMOKING: SMOKING CESSATION DISEASE SPECIFIC EDUCATION: PNEUMONIA SEVERE COPD VAGINAL CANDIDIASIS BLEEDING PRECAUTIONS COVID - 19 LAB REVIEW: 05/18/20 05:26 05/18/20 05:26 05/18/20 05:26: Sodium 135.6, Potassium 4.18, Chloride 94.3 L, Carbon Dioxide 39.3 H, Anion Gap 6.18, BUN 31.6 H, Creatinine 1.05, Estimated GFR (MDRD) 51.00, BUN/Creatinine Ratio 30.09, Glucose 74.8, Calcium 9.88, Total Bilirubin 0.39, AST 35.4, ALT 26.6, Alkaline Phosphatase 159.8 H, Total Protein 6.37, Albumin 3.38 L, Globulin 2.99, Albumin/Globulin Ratio 1.13 05/18/20 05:26: WBC 8.71, RBC 3.47 L, Hgb 9.8 L, Hct 30.7 L, MCV 88.5, MCH 28.2, MCHC 31.9, RDW Coeff of Elie 18.1 H, Plt Count 382, Immature Gran % (Auto) 2.2, Neut % (Auto) 73.6, Lymph % (Auto) 15.2, Towner % (Auto) 8.0, Eos % (Auto) 0.7, Baso % (Auto) 0.3, Neut # (Auto) 6.4, Lymph # (Auto) 1.3, Towner # (Auto) 0.7, Eos # (Auto) 0.1, Baso # (Auto) 0.0, Immature Gran # (Auto) 0.2 05/18/20 05:26: PT 23.9 H D, INR 2.23 05/17/20 10:34: Urine Color Yellow, Urine Clarity Clear, Urine pH 6.0, Ur Specific Tum[place] 1.015, Urine Protein Negative, Urine Glucose (UA) Negative, Urine Ketones Negative, Urine Blood Trace-intact H, Urine Nitrite Negative, Urine Bilirubin Negative, Urine Urobilinogen 0.2, Ur Leukocyte Esterase Negative, Urine Microscopic RBC 0-2, Ur Squamous Epith Cells 2-5 DIET: REGULAR TOLERATED ACTIVITY: GRADUALLY RESUME TOLERATED WITH ROLLATOR. FREQUENT REST PERIODS BUT DO GET UP AND WALK IN HOME FREQUENTLY . STAY HOME EXCEPT FOR MEDICAL APPOINTMENTS HOSPITAL COURSE: This is a white female who was admitted through the emergency room with shortness of breath. Chest x-ray revealed persistent bilateral pneumonia and she has had this for some time. Her last hospitalization was treated with Mirim and Gentamicin. She found to be hypoxic, severely labored on admission. Initial ABGs had pO2 of 59 and pCO2 54. She is placed on the Vapotherm high flow for about 48 hours and did remarkably well. We were able to improve her pCO2 and she is now back on three liters via nasal canula which is her baseline. She was placed on Tobramycin as this had not been used to treat the bilateral pneumonia. She has tolerated this medication well. We checked her INR daily. We had discussed at her last hospitalization the poor prognosis she has and she is at the end stage of her disease. She is in somewhat denial regarding this situation. She does have very little room for improvement. Today and the past couple days she has been back at baseline. She is getting up and using the potty chair. She is talking comfortably with her oxygen on via nasal canula. She will discharged home. Again prognosis is poor. She states that she is not ready for Hospice and she refuses to go to the intermediate. She is easily fatigued with any sort of exertion so I do suspect that she will be back in the hospital soon. She has completed 12 days of antibiotics and she will not go home any. She will go home on Prednisone 20mg daily for 2 days and 10mg for 5 days and then resume her normal 5mg of Prednisone. She has nebulizers at home which she will continue to use as prescribed and we will followup with her in the office next week. Today on day of discharge kidney function is good with creatinine 1.05, hgb stable at 10.1. Oxygen 100% on 3 liters. Blood pressure 133/78, temperature 97.5. INR is 2.6 today. TIME SPENT: More than 60 minutes. MTDD
--- NOTE | 2020-05-23 09:52 | PN ---
DATE OF SERVICE: 05/17/20 SUBJECTIVE: 79-year-old white female hospitalized with acute exacerbation of COPD, has recurrent Pseudomonas pneumonia. Also, the patient's condition slowly has improved. She is sitting by the side of the bed talking, a little short of breath with a few sentences but when she was hospitalized she was not able to talk. REVIEW OF SYSTEMS: CONSTITUTIONAL: No night sweats. No fatigue, malaise, lethargy. No fever or chills. HEENT: Eyes: No visual changes. No eye pain. No eye discharge. ENT: No runny nose. No epistaxis. No sinus pain. No sore throat. No odynophagia. No congestion. RESPIRATORY: Mild cough with congestion. No hemoptysis. No shortness of breath. CARDIOVASCULAR: No angina symptoms. No CHF symptoms. No atypical chest pain for CAD. No palpitations. No PND. No orthopnea. GASTROINTESTINAL: No abdominal pain. No nausea or vomiting. No diarrhea or constipation. No hematemesis. No hematochezia. GENITOURINARY: No urgency. No frequency. No dysuria. No hematuria. No obstructive symptoms. No discharge. No pain. No significant abnormal bleeding. MUSCULOSKELETAL: No musculoskeletal pain; no joint swelling. NEUROLOGICAL: No headache. No neck pain. No syncope. No seizures. No dizziness. PSYCHIATRIC: Not anxious. No depression. No suicidal thoughts. No homicidal thoughts. SKIN: No rash. No lesions. No wounds. ENDOCRINE: No unexplained weight loss. No weight gain. HEMATOLOGIC/LYMPHATIC: No anemia. No purpura. No petechiae. No prolonged or excessive bleeding. No palpable lymph nodes. PHYSICAL EXAMINATION: VITAL SIGNS: Temperature 97.6, pulse 83, respiratory rate 20, BP 126/76, pulse ox 97%. HEENT: Head normocephalic, atraumatic. Eyes: Extraocular muscles are intact. Pupils are equal, round and reactive to light and accommodation. Ears: No lesions. Nose appeared normal. Throat: No exudate or erythema. NECK: Supple. No JVD, no carotid bruit. No lymphadenopathy or thyromegaly. LUNGS: Decreased breath sounds bilaterally but better entry than she had before. Clear to auscultation. Percussion note normal. Chest symmetrical. HEART: S1, S2, no S3. No murmurs. No cyanosis or clubbing. No ascites. Pulses: Dorsalis pedis and posterior tibial pulses +1 to +2 bilaterally. ABDOMEN: Soft. Nontender. Bowel sounds active. No CVA tenderness. No mass felt. EXTREMITIES: No edema. Full range of motion of all extremities, equal. NEUROLOGIC: No focal deficit. Cranial nerves II through XII are grossly intact. No headache, no double vision or headache. SKIN: Not dry. Intact. Turgor - normal. LYMPHATIC: No palpable lymph nodes/no lymphedema. MUSCULOSKELETAL: Normal joints with no swelling. Muscle tone is normal. LABS: Hemoglobin 9.4, hematocrit 28, WBC 5,000, normal differential. Creatinine 1, BUN 32, potassium 3.3. ASSESSMENT: 1. Acute exacerbation of COPD with acute recurrent Pseudomonas infection causing pneumonia. 2. Chronic lung disease, end-stage. PLAN: 1. Continue Tobramycin. 2. The patient is encouraged to eat. 3. Again Hospice discussed. The patient is going to be discharged a couple of days. Prognosis is poor. TIME SPENT: More than 30 minutes. Plan and coordination of the patient's care discussed in the presence of nurse. ANETA
--- NOTE | 2020-05-23 09:59 | PN ---
DATE OF SERVICE: 05/18/20 SUBJECTIVE: The patient was seen and examined with the nurse practitioner. The patient's condition is stable. She is going to be discharged on Tobramycin. Her condition is going to worsen as she has colonized the Pseudomonas, severe chronic lung disease, end-stage dependent on steroids and oxygen. She is thinking about hospice. TIME SPENT: More than 30 minutes. Plan and coordination of the patient's care discussed in the presence of nurse. ANETA
--- NOTE | 2020-05-23 10:02 | PN ---
BILLING 05/04/20 ADMISSION DAY LEVEL 5 05/05/20 INTERMEDIATE 05/06/20 INTERMEDIATE 05/07/20 INTERMEDIATE 05/08/20 INTERMEDIATE 05/09/20 INTERMEDIATE 05/10/20 INTERMEDIATE 05/11/20 INTERMEDIATE 05/12/20 INTERMEDIATE 05/13/20 INTERMEDIATE 05/14/20 INTERMEDIATE 05/15/20 INTERMEDIATE 05/16/20 INTERMEDIATE 05/17/20 INTERMEDIATE 05/18/20 D IN DISCHARGE MTDD
== END 2020-05-18 13:30 | disposition home or self-care (01) | DRG 204 ==
LOC: ED 11:36 → MEDSURG A 17:01
PROVIDERS: ADMIT Internal Medicine; ATTEND Internal Medicine
DX: K21.9 Gastro-esophageal reflux disease without esophagitis; R06.02 Shortness of breath; N18.9 Chronic kidney disease, unspecified; R05 Cough; R60.0 Localized edema; M54.9 Dorsalgia, unspecified; J96.00 Acute respiratory failure, unspecified whether with hypoxia or hypercapnia; D64.9 Anemia, unspecified; I10 Essential (primary) hypertension; F41.9 Anxiety disorder, unspecified; R53.1 Weakness

== ENCOUNTER 2020-05-27 07:08 | Inpatient (IN) ==
[2020-05-27] MEDS ORDERED: VENTOLIN HFA (PER PUFF-WITH SPACER) IH STA (07:31)
[2020-05-27 07:49] LABS: BASOPHILS # (AUTO) 0.1 K/uL (0-0.2); BASOPHILS % (AUTO) 0.2 % (0.0-3.0); EOSINOPHILS % (AUTO) 0.1 % (0.0-7.0); HEMATOCRIT 32.4 % (37.0-47.0); HEMOGLOBIN 10.3 g/dl (12.0-16.0); IMMATURE GRANULOCYTE # (AUTO) 0.2 (0.0-1.0); IMMATURE GRANULOCYTE % (AUTO) 0.8 % (0.0-5.0); LYMPHOCYTES # (AUTO) 1.6 K/uL (0.60-3.4); LYMPHOCYTES % (AUTO) 7.2 (10.0-50.0); MEAN CORPUSCULAR HEMOGLOBIN 28.6 pg (27.0-31.0); MEAN CORPUSCULAR HGB CONC 31.8 (31.8-35.4); MONOCYTES # (AUTO) 0.9 K/uL (0.4-2.0); MONOCYTES % (AUTO) 3.8 (0-10); NEUTROPHILS # (AUTO) 19.7 K/ul (2.0-6.9); NEUTROPHILS % (AUTO) 87.9 % (42.2-75.2); PLATELET COUNT 244 10^3/uL (140-440); RDW COEFFICIENT OF VARIATION 18.6 % (11.6-14.8); WHITE BLOOD COUNT 22.38 K/ul (4.6-10.2)
--- NOTE | 2020-05-27 07:59 | ED.PDOC ---
General ED Provider: Dr. SERINA FLORES Chief Complaint: Shortness of Air Stated Complaint: 79 y/o white female known hx advance COPD presents with progressive worsening shortness of breath despite being on home pulmonary therapy and oxygen. Time Seen by Provider: 05/27/20 07:10 Mode of Arrival: Ambulance Information Source: Patient and EMT Exam Limitations: No limitations Primary Care Provider: RAISA RASCON Referred to ED by: PCP Nursing and Triage Documentation Reviewed and Agree: Yes Does patient meet sepsis criteria?: No System Inflammatory Response Syndrome: Not Applicable Sepsis Protocol: For patient's 13 years and over: Temp is 96.8 and below OR 101 and greater Pulse >90 BPM Resp >20/minute Acutely Altered Mental Status Are patient's symptoms suggestive of a new infection, such as: -Pneumonia -Skin, Soft Tissue -Endocarditis -UTI -Bone, Joint Infection -Implantable Device -Acute Abdominal Infection -Wound Infection -Meningitis -Blood Stream Catheter Infection -Unknown Respiratory Complaint Exam Shortness of Air Complaint/Exam Onset/Duration: chronic-worsening since last PM Timing: Constant Initial Severity: Moderate Current Severity: Moderate Character: Reports Dyspnea on exertion and Orthopnea Aggravating: Reports Movement and Recumbent position Alleviating: Reports Bronchodilators and Oxygen Associated Signs and Symptoms: Reports Chest pain with cough Related History: Reports Similar episode History of Healthcare-Acquired Pneumonia: No Pulmonary Embolism Risk Factors: Reports None and Bedrest Cardiac Risk Factors: Reports Hypertension Tuberculosis Risk Factors: Reports None Home Oxygen Use: Yes Recent Stress Test: No Recent Echo/LV Function: No Respiratory Distress: Moderate Stridor Present: No Tracheal Deviation: No Subcutaneous Emphysema: No Accessory Muscle Use: No Retractions: Not Present Diminished Breath Sounds: Yes Prolonged Expiratory Phase: No Unable to Speak Full Sentences: Yes Fatigue: Yes Leg Swelling: No Elizabeth's Sign Present: No Grunting Respirations: No Kussmaul Respirations: No Differential Diagnoses: COPD Exacerbation and Pneumonia Review of Systems Review Of Systems Constitutional: Reports No symptoms Eyes: Reports No symptoms Ears, Nose, Mouth, Throat: Reports No symptoms Respiratory: Reports Cough, Short of air and Wheezing Cardiac: Reports No symptoms GI: Reports No symptoms : Reports No symptoms Musculoskeletal: Reports Muscle pain Skin: Reports No symptoms Neurological: Reports No symptoms Endocrine: Reports No symptoms Hematologic/Lymphatic: Reports No symptoms All Other Systems: Reviewed and Negative [facility] Medical History Arrhythmia Asthma Bronchitis COPD (chronic obstructive pulmonary disease) Hypertension Pneumonia Pulmonary emboli Family History BROTHER No problems noted. Mother COPD (chronic obstructive pulmonary disease) Other Cancer Social History Smoking and tobacco status: Former smoker Substance use type: does not use History of recent travel: No Surgical History History of hysterectomy Female Reproductive History Menstrual Hx Hysterectomy: Yes Hx Tubal Ligation: No Physical Exam Physical Exam Appearance: Reports Ill-appearing and Thin Ill-appearing: Moderate Pain Distress: Mild Eyes: Reports BETH, EOMI and Conjunctiva clear ENT: Reports Ears normal, Nose normal and Oropharynx normal Neck: Supple Respiratory: Reports Airway patent and Breath sounds diminished Cardiovascular: Reports RRR, Pulses normal and No rub GI/: Reports Soft, Nontender, No masses and Bowel sounds normal Musculoskeletal: Reports Normal strength, ROM intact, No edema and No calf tenderness Skin: Reports Warm, Dry and Normal color Neurological: Reports Sensation intact, Motor intact, Reflexes intact, Cranial nerves intact, Alert and Oriented Psychiatric: Reports Affect appropriate and Mood appropriate Interpretation Radiology Interpretation Radiology Results: No acute changes Exam Interpreted: Portable CXR Composite Bond Technician Time of Composite Bond Technician Interpretation: 07:15 Rate: Tachy Rhythm: Sinus Ectopy: None EKG Interpretation Time of EKG #1: 07:55 Rate: Tachy Rhythm: Sinus Ectopy: PACs [place]: Left ST Segment: Normal Interpretation: sinus tachycardia, PACs, LVH Physician Notification Case Discussed Physician Notified: Dr Rascon-discussed case/req admit observ Time of Notification: 09:00 Critical Care Note Critical Care Note Total Critical Care Time (mins): 30 Course Course Hematology/Chemistry: 05/28/20 04:45 05/28/20 04:45 Orders, Labs, Meds: Lab Review 05/27/20 05/27/20 05/27/20 07:20 07:48 07:48 WBC 22.38 H RBC 3.60 L Hgb 10.3 L Hct 32.4 L MCV 90.0 MCH 28.6 MCHC 31.8 RDW Coeff of Elie 18.6 H Plt Count 244 Immature Gran % (Auto) 0.8 Neut % (Auto) 87.9 H Lymph % (Auto) 7.2 L [place] % (Auto) 3.8 Eos % (Auto) 0.1 Baso % (Auto) 0.2 Neut # (Auto) 19.7 H Lymph # (Auto) 1.6 [place] # (Auto) 0.9 Eos # (Auto) 0.0 Baso # (Auto) 0.1 Immature Gran # (Auto) 0.2 PT INR Puncture Site Base Excess O2 Saturation ABG pH ABG pCO2 ABG pO2 ABG HCO3 ABG Total CO2 [place] Test Hemoglobin Oxyhemoglobin Carboxyhemoglobin Total Hemoglobin O2 Delivery Device Oxygen Liter Flow FiO2 % Sodium 137.2 Potassium 3.77 Chloride 97.0 L Carbon Dioxide 37.1 H Anion Gap 6.87 BUN 21.6 H Creatinine 1.28 Estimated GFR (MDRD) 40.00 BUN/Creatinine Ratio 16.87 Glucose 82.6 Calcium 9.83 Total Bilirubin 0.66 AST 31.3 ALT 18.3 Alkaline Phosphatase 138.2 Total Protein 6.57 Albumin 3.50 Globulin 3.07 Albumin/Globulin Ratio 1.14 Adenovirus (PCR) Not detected B. pertussis DNA (PCR) Not detected B.parapertussis DNA PCR Not detected C. pneumoniae DNA (PCR) Not detected Coronavirus OC43 (PCR) Not detected Coronavirus HKU1 (PCR) Not detected Coronavirus 229E (PCR) Not detected Coronavirus NL63 (PCR) Not detected Human Metapneumovir PCR Not detected Influenza Type A (PCR) Not detected Influenza B (RT-PCR) Not detected M. pneumoniae (PCR) Not detected Parainfluenza 1 (PCR) Not detected Parainfluenza 2 (PCR) Not detected Parainfluenza 3 (PCR) Not detected Parainfluenza 4 (PCR) Not detected RSV (PCR) Not detected Entero/Rhino (PCR) Not detected SARS-CoV-2 (PCR) Not detected 05/27/20 05/27/20 08:05 08:15 WBC RBC Hgb Hct MCV MCH MCHC RDW Coeff of Elie Plt Count Immature Gran % (Auto) Neut % (Auto) Lymph % (Auto) [place] % (Auto) Eos % (Auto) Baso % (Auto) Neut # (Auto) Lymph # (Auto) Dag[place] # (Auto) Eos # (Auto) Baso # (Auto) Immature Gran # (Auto) PT 60.2 H INR 5.58 H* Puncture Site Rrad Base Excess 14.9 H O2 Saturation 99.4 H ABG pH 7.47 H ABG pCO2 53.0 H ABG pO2 145.0 H ABG HCO3 38.6 H ABG Total CO2 40.2 H Milton Test Positive Hemoglobin 1.6 H Oxyhemoglobin 95.6 Carboxyhemoglobin 2.4 H Total Hemoglobin 7.1 L O2 Delivery Device Non rebreather Oxygen Liter Flow 15.00 FiO2 % 100.0 Sodium Potassium Chloride Carbon Dioxide Anion Gap BUN Creatinine Estimated GFR (MDRD) BUN/Creatinine Ratio Glucose Calcium Total Bilirubin AST ALT Alkaline Phosphatase Total Protein Albumin Globulin Albumin/Globulin Ratio Adenovirus (PCR) B. pertussis DNA (PCR) B.parapertussis DNA PCR C. pneumoniae DNA (PCR) Coronavirus OC43 (PCR) Coronavirus HKU1 (PCR) Coronavirus 229E (PCR) Coronavirus NL63 (PCR) Human Metapneumovir PCR Influenza Type A (PCR) Influenza B (RT-PCR) M. pneumoniae (PCR) Parainfluenza 1 (PCR) Parainfluenza 2 (PCR) Parainfluenza 3 (PCR) Parainfluenza 4 (PCR) RSV (PCR) Entero/Rhino (PCR) SARS-CoV-2 (PCR) Orders Category Date Time Status ABG DRAW REQUEST Stat CARDIO 05/27/20 08:00 Completed EKG-(ED ONLY) Stat CARDIO 05/27/20 07:31 Completed METERED DOSE INHALATION Routine CARDIO 05/27/20 07:33 Completed OXYGEN Routine CARDIO 05/27/20 09:04 Active ACTIVITY .Complete BR CARE 05/27/20 09:04 Active INTAKE & OUTPUT Q8HR CARE 05/27/20 09:04 Active PHARMACIST CONSULT ONCE CARE 05/27/20 09:09 Active TELEMETRY MONITORING TELE CARE 05/27/20 08:58 Active VITAL SIGNS Q8HR CARE 05/27/20 09:04 Active REGULAR DIET DIETARY 05/27/20 Lunch Ordered ABG COOX Stat LAB 05/27/20 08:05 Completed CBC W/ AUTO DIFF DAILY@0600 LAB 05/28/20 04:45 Completed CBC W/ AUTO DIFF DAILY@0600 LAB 05/29/20 06:00 Ordered CBC W/ AUTO DIFF Stat LAB 05/27/20 07:48 Completed CMP [COMPREHENSIVE METABOLIC PANEL] Stat LAB 05/27/20 07:48 Completed COMPREHENSIVE METABOLIC PANEL DAILY@0600 LAB 05/28/20 04:45 Completed COMPREHENSIVE METABOLIC PANEL DAILY@0600 LAB 05/29/20 06:00 Ordered PT WITH INR Stat LAB 05/27/20 08:15 Completed RESPIRATORY PANEL 2.1 (PCR) Stat LAB 05/27/20 07:20 Completed Acetaminophen [Tylenol] MEDS 05/27/20 09:04 Active 650 mg PO Q4H PRN Acetaminophen [Tylenol] MEDS 05/27/20 09:22 Active 650 mg PO Q4HR PRN Albuterol Inhaler(with Spacer) [Ventolin Hfa (Per Puff- MEDS 05/27/20 07:31 Discontinued with Spacer)] 2 puff IH ONCE STA Alprazolam [Xanax] MEDS 05/27/20 09:30 Active 0.25 mg PO TID Brimonidine Tartrate [Brimonidine Tartrate 0.2% Opth MEDS 05/27/20 21:00 Active [place]] 1 drop EACHEYE BID Carvedilol [Coreg] MEDS 05/27/20 09:30 Active 3.125 mg PO BIDWM Codeine/Promethazine Syrup [Phenergan with Codeine 6.25 MEDS 05/27/20 09:22 Active /10 mg/5 ml] 10 ml PO Q6H PRN Enoxaparin Sodium [Lovenox] MEDS 05/27/20 09:30 Discontinued 30 mg SUBCUT DAILY Ferrous Sulfate MEDS 05/28/20 09:00 Active 324 mg PO DAILY Furosemide [Lasix Tab] MEDS 05/28/20 06:30 Active 20 mg PO QDAC Gentamicin Sulfate 340 mg MEDS 05/27/20 10:30 Active 0.9 % Sodium Chloride [Sodium Chloride] 100 ml IV Q48HR Guaifenesin [Mucinex] MEDS 05/27/20 09:30 Active 600 mg PO Q12HR Loratadine [Claritin] MEDS 05/28/20 09:00 Active 10 mg PO DAILY Meclizine HCl [Antivert] MEDS 05/27/20 09:22 Discontinued 25 mg PO TID PRN Meclizine HCl [Antivert] MEDS 05/27/20 10:00 Active 25 mg PO TID PRN Methylprednisolone Sod Succ/Pf [Solu-Medrol 125 mg] MEDS 05/27/20 09:31 Discontinued 125 mg IVP ONCE STA Ondansetron HCl/Pf [Zofran 4 mg/2 ml] MEDS 05/27/20 09:04 Active 4 mg IVP Q6H PRN Pantoprazole Sodium [Protonix] MEDS 05/27/20 17:00 Active 40 mg PO BIDAC Potassium Chloride [Micro-K Cap] MEDS 05/28/20 08:30 Active 10 meq PO DAILYWM Potassium Chloride in 0.9%NaCl [Sodium Chloride 0.9%- MEDS 05/27/20 09:30 Active KCl 20 Meq] 1,000 ml IV 70 mls/hr Saccharomyces Boulardii [Florastor] MEDS 05/27/20 21:00 Active 250 mg PO BID Tobramycin Sulfate 240 mg MEDS 05/27/20 09:30 Discontinued 0.9 % Sodium Chloride [Sodium Chloride] 100 ml IV DAILY Tobramycin Sulfate 340 mg MEDS 05/29/20 09:00 Active 0.9 % Sodium Chloride [Sodium Chloride] 100 ml IV Q48HR Tramadol HCl [Ultram] MEDS 05/27/20 21:00 Active 50 mg PO BID Warfarin Sodium [Coumadin] MEDS 05/27/20 17:00 Hold 3 mg PO QPM RESUSCITATION STATUS Routine OTHERS 05/27/20 09:04 Ordered CHEST, 1V AP ONLY Stat RADS 05/27/20 07:31 Completed OT CONSULTATION Routine THERAPIES 05/27/20 Ordered Medications Generic Name Dose Route Start Last Admin Trade Name Byronq PRN Reason Stop Dose Admin Acetaminophen 650 mg 05/27/20 09:04 Acetaminophen 325 Mg Tablet PO Q4H PRN Pain Acetaminophen 650 mg 05/27/20 09:22 Acetaminophen 325 Mg Tablet PO Q4HR PRN Fever >101 Albuterol Sulfate 2 puff 05/27/20 12:00 05/28/20 05:02 Albuterol Sulfate (Ventolin Hfa) 18 Gm 1 Puff With Spacer IH 2 puff RTQ6H OLVIN Administration Alprazolam 0.25 mg 05/27/20 09:30 05/27/20 20:46 Alprazolam 0.25 Mg Tablet PO 0.25 mg TID OLVIN Administration Brimonidine Tartrate 1 drop 05/27/20 21:00 05/27/20 20:47 Brimonidine Tartrate 0.2% 5 Ml Btl EACHEYE 1 drop BID OLVIN Administration Carvedilol 3.125 mg 05/27/20 09:30 05/27/20 16:06 Carvedilol 3.125 Mg Tablet PO 3.125 mg BIDWM OLVIN Administration Dexamethasone Sodium Phosphate 4 mg 05/28/20 09:00 Dexamethasone Sod Phos 4 Mg/Ml Inj IM DAILY OLVIN Ferrous Sulfate 324 mg 05/28/20 09:00 Ferrous Sulfate 324 Mg Tablet.Dr PO DAILY OLVIN Furosemide 20 mg 05/28/20 06:30 05/28/20 05:46 Furosemide 20 Mg Tablet PO 20 mg QDAC OLVIN Administration Guaifenesin 600 mg 05/27/20 09:30 05/27/20 20:47 Guaifenesin 600 Mg Tablet.Er PO 600 mg Q12HR OLVIN Administration Potassium Chloride/Sodium Chloride 1,000 mls @ 70 mls/hr 05/27/20 09:30 05/27/20 10:41 Sodium Chloride 0.9%-Kcl 20 Meq IV 70 mls/hr .[id number] OLVIN Administration Gentamicin Sulfate 340 mg/ 108.5 mls @ 100 mls/hr 05/27/20 10:30 05/27/20 10:46 Sodium Chloride IV 05/28/20 23:59 100 mls/hr Q48HR OLVIN Administration Tobramycin Sulfate 340 mg/ 108.5 mls @ 100 mls/hr 05/29/20 09:00 Sodium Chloride IV 06/02/20 10:00 Q48HR OLVIN Ipratropium [place] 2 puff 05/27/20 12:00 05/28/20 05:01 Ipratropium [place] 12.9 Gm Hfa Inhaler Per Puff With Spacer IH 2 puff RTQ6H OLVIN Administration Loratadine 10 mg 05/28/20 09:00 Loratadine 10 Mg Tablet PO DAILY OLVIN Meclizine HCl 25 mg 05/27/20 10:00 Meclizine Hcl 25 Mg Tablet PO TID PRN Dizziness Ondansetron HCl 4 mg 05/27/20 09:04 Ondansetron Hcl/Pf 4 Mg/2 Ml Sdv IVP Q6H PRN Nausea / Vomiting Pantoprazole Sodium 40 mg 05/27/20 17:00 05/28/20 05:46 Pantoprazole Sodium 40 Mg Tablet.Dr PO 40 mg BIDAC OLVIN Administration Potassium Chloride 10 meq 05/28/20 08:30 Potassium Chloride 10 Meq Capsule.Er PO DAILYWM OLVIN Promethazine HCl/Codeine 10 ml 05/27/20 09:22 05/27/20 22:03 Promethazine/Codeine Syrup 6.25/10 Mg/5 Ml Disp.Syringe PO 10 ml Q6H PRN Administration COUGH/NAUSEA Saccharomyces Boulardii 250 mg 05/27/20 21:00 05/27/20 20:46 Saccharomyces Boulardii 250 Mg Capsule PO 250 mg BID OLVIN Administration Tramadol HCl 50 mg 05/27/20 21:00 05/27/20 20:47 Tramadol Hcl 50 Mg Tablet PO 50 mg BID OLVIN Administration Warfarin Sodium 3 mg 05/27/20 17:00 Warfarin Sodium 3 Mg Tablet PO QPM OLVIN Discontinued Medications Generic Name Dose Route Start Last Admin Trade Name Freq PRN Reason Stop Dose Admin Albuterol Sulfate 2 puff 05/27/20 07:31 05/27/20 07:52 Albuterol Sulfate (Ventolin Hfa) 18 Gm 1 Puff With Spacer IH 05/27/20 07:32 2 puff ONCE STA Administration Enoxaparin Sodium 30 mg 05/27/20 09:30 05/27/20 10:49 Enoxaparin Sodium 30 Mg/0.3 Ml Syr SUBCUT 30 mg DAILY OLVIN Administration Tobramycin Sulfate 240 mg/ 106 mls @ 100 mls/hr 05/27/20 09:30 05/27/20 12:03 Sodium Chloride IV 05/30/20 09:29 Not Given DAILY OLVIN Meclizine HCl 25 mg 05/27/20 09:22 Meclizine Hcl 25 Mg Tablet PO TID PRN Dizziness Methylprednisolone Sodium Succinate 125 mg 05/27/20 09:31 05/27/20 10:49 Methylprednisolone Sod Succ/Pf 125 Mg/2 Ml Vial IVP 05/27/20 09:32 125 mg ONCE STA Administration Phytonadione 10 mg 05/27/20 10:16 05/27/20 10:49 Phytonadione 5 Mg Tablet PO 05/27/20 10:17 10 mg ONCE STA Administration Vital Signs: Temp Pulse Resp BP Pulse Ox 05/27/20 07:08 96.8 F L 115 H 26 H 133/77 100 Discharge Plan Discharge Patient Disposition: PLACED OBSERVATION Discharge Problem: Acute exacerbation of chronic obstructive pulmonary disease ED Provider: SERINA FLORES Condition: Fair Physician Progress Note: []
[2020-05-27 08:01] LABS: ALANINE AMINOTRANSFERASE 18.3 U/L (0-35); ALBUMIN 3.5 g/dL (3.5-5.0); ALKALINE PHOSPHATASE 138.2 U/L (53-141); ASPARTATE AMINO TRANSFERASE 31.3 U/L (14-36); BILIRUBIN,TOTAL 0.66 mg/dL (0.2-1.3); BLOOD UREA NITROGEN 21.6 mg/dL (7-17); CALCIUM 9.83 mg/dL (8.4-10.2); CARBON DIOXIDE 37.1 mmol/L (22-30.0); CREATININE 1.28 mg/dL (0.60-1.30); GLUCOSE 82.6 mg/dL (74-106); POTASSIUM 3.77 mmol/L (3.5-5.1); SODIUM 137.2 mmol/L (134.5-145); TOTAL PROTEIN 6.57 g/dL (6.3-8.2)
--- NOTE | 2020-05-27 08:05 | DI ---
EXAM: Frontal view of the chest. COMPARISON: Chest radiograph 05/04/2020. HISTORY: Pressures cough, dyspnea, shortness of breath. FINDINGS: The lungs are hyperinflated with areas of band-like scarring, similar to the prior exam. Scattered c alcified granulomas. No acute airspace consolidation. Normal heart size. Aortic calcifications. Bones appear demineralized. No visible pleural effusion or pneumothorax. IMPRESSION: Hyperinflation lungs compatible with emphysema. No acute process.
[2020-05-27 08:22] LABS: ABG PH 7.47 (7.35-7.45)
[2020-05-27] MEDS ORDERED: TYLENOL PO PRN ×2 (09:04→09:22)
[2020-05-27] MEDS ORDERED: ZOFRAN 4 MG/2 ML IVP PRN (09:04)
[2020-05-27] MEDS ORDERED: ANTIVERT PO PRN (09:22)
[2020-05-27] MEDS ORDERED: SODIUM CHLORIDE IV SCH ×7 (09:30→10:30)
[2020-05-27] MEDS ORDERED: TOBRAMYCIN SULFATE IV SCH ×6 (09:30→10:00)
[2020-05-27] MEDS ORDERED: LOVENOX SUBCUT SCH (09:30)
[2020-05-27] MEDS ORDERED: SOLU-MEDROL 125 MG IVP STA (09:31)
[2020-05-27 10:16] LABS: PROTHROMBIN TIME 60.2 SEC (9.3-11.0)
[2020-05-27] MEDS ORDERED: MEPHYTON PO STA (10:16)
[2020-05-27 10:27] VITALS: BMI 18.1
[2020-05-27] MEDS ORDERED: GENTAMICIN SULFATE IV SCH (10:30)
[2020-05-27] MEDS: SODIUM CHLORIDE 0.9%-KCL 20 MEQ 1,000 ML IV SCH (10:41)
[2020-05-27] MEDS: COREG PO SCH ×2 (10:49→16:06)
[2020-05-27] MEDS: PHENERGAN WITH CODEINE 6.25/10 MG/5 ML PO PRN ×2 (10:49→22:03)
[2020-05-27] MEDS: MUCINEX PO SCH ×2 (10:49→20:47)
[2020-05-27] MEDS: XANAX PO SCH ×3 (10:49→20:46)
[2020-05-27] MEDS: VENTOLIN HFA (PER PUFF-WITH SPACER) IH SCH ×2 (11:34→17:27)
[2020-05-27] MEDS: ATROVENT HFA INHALER (PER PUFF-WITH SPACER) IH SCH ×2 (11:34→17:28)
[2020-05-27] MEDS: PROTONIX PO SCH (16:06)
[2020-05-27] MEDS: FLORASTOR PO SCH (20:46)
[2020-05-27] MEDS: ULTRAM PO SCH (20:47)
[2020-05-27] MEDS: BRIMONIDINE TARTRATE 0.2% OPTH SOL EACHEYE SCH (20:47)
[2020-05-27] MEDS ORDERED: BRIMONIDINE 0.1% OP SCH (21:00)
[2020-05-28] MEDS: ATROVENT HFA INHALER (PER PUFF-WITH SPACER) IH SCH ×5 (05:01→23:30)
[2020-05-28] MEDS: VENTOLIN HFA (PER PUFF-WITH SPACER) IH SCH ×5 (05:02→23:30)
[2020-05-28 05:14] LABS: BASOPHILS % (AUTO) 0.2 % (0.0-3.0); HEMATOCRIT 28.9 % (37.0-47.0); HEMOGLOBIN 9.3 g/dl (12.0-16.0); IMMATURE GRANULOCYTE # (AUTO) 0.1 (0.0-1.0); IMMATURE GRANULOCYTE % (AUTO) 0.9 % (0.0-5.0); LYMPHOCYTES # (AUTO) 0.9 K/uL (0.60-3.4); LYMPHOCYTES % (AUTO) 6.2 (10.0-50.0); MEAN CORPUSCULAR HEMOGLOBIN 29.1 pg (27.0-31.0); MEAN CORPUSCULAR HGB CONC 32.2 (31.8-35.4); MEAN CORPUSCULAR VOLUME 90.3 fl (81.0-99.0); MONOCYTES # (AUTO) 0.5 K/uL (0.4-2.0); MONOCYTES % (AUTO) 3.7 (0-10); NEUTROPHILS # (AUTO) 13.1 K/ul (2.0-6.9); PLATELET COUNT 224 10^3/uL (140-440); RDW COEFFICIENT OF VARIATION 18.6 % (11.6-14.8); WHITE BLOOD COUNT 14.66 K/ul (4.6-10.2)
[2020-05-28 05:25] LABS: ALANINE AMINOTRANSFERASE 15.4 U/L (0-35); ALBUMIN 3.02 g/dL (3.5-5.0); ALKALINE PHOSPHATASE 121.1 U/L (53-141); BILIRUBIN,TOTAL 0.45 mg/dL (0.2-1.3); BLOOD UREA NITROGEN 18.6 mg/dL (7-17); CALCIUM 9.2 mg/dL (8.4-10.2); CARBON DIOXIDE 30.7 mmol/L (22-30.0); CHLORIDE 102.7 mmol/L (98-107); CREATININE 1.01 mg/dL (0.60-1.30); GLUCOSE 109.8 mg/dL (74-106); POTASSIUM 4.1 mmol/L (3.5-5.1); SODIUM 136.3 mmol/L (134.5-145); TOTAL PROTEIN 5.86 g/dL (6.3-8.2)
[2020-05-28] MEDS: PROTONIX PO SCH ×2 (05:46→17:02)
[2020-05-28] MEDS: LASIX TAB PO SCH (05:46)
[2020-05-28] MEDS ORDERED: MICRO-K CAP PO SCH (08:30)
[2020-05-28] MEDS: CLARITIN PO SCH (08:34)
[2020-05-28] MEDS: XANAX PO SCH ×3 (08:34→20:43)
[2020-05-28] MEDS: DECADRON IM SCH (08:34)
[2020-05-28] MEDS: FLORASTOR PO SCH ×2 (08:34→20:43)
[2020-05-28] MEDS: FERROUS SULFATE PO SCH (08:35)
[2020-05-28] MEDS: ULTRAM PO SCH ×2 (08:35→20:43)
[2020-05-28] MEDS: MUCINEX PO SCH ×2 (08:35→20:43)
[2020-05-28] MEDS: COREG PO SCH ×2 (08:35→17:02)
[2020-05-28] MEDS: BRIMONIDINE TARTRATE 0.2% OPTH SOL EACHEYE SCH ×2 (08:39→20:44)
[2020-05-28] MEDS ORDERED: NON-FORMULARY MEDICATION (Ferrous Sulfate 325 mg (65 mg iron) Tablet) PO SCH (09:00)
[2020-05-28] MEDS: SODIUM CHLORIDE 0.9%-KCL 20 MEQ 1,000 ML IV SCH (15:19)
[2020-05-28] MEDS: COUMADIN PO SCH (17:02)
[2020-05-28] MEDS: PHENERGAN WITH CODEINE 6.25/10 MG/5 ML PO PRN (20:43)
[2020-05-29] MEDS: ATROVENT HFA INHALER (PER PUFF-WITH SPACER) IH SCH ×4 (04:49→23:10)
[2020-05-29] MEDS: VENTOLIN HFA (PER PUFF-WITH SPACER) IH SCH ×4 (04:50→23:10)
[2020-05-29] MEDS: SODIUM CHLORIDE 0.9%-KCL 20 MEQ 1,000 ML IV SCH ×2 (04:53→09:59)
[2020-05-29 05:11] LABS: BASOPHILS % (AUTO) 0.1 % (0.0-3.0); EOSINOPHILS % (AUTO) 0.1 % (0.0-7.0); HEMATOCRIT 27.7 % (37.0-47.0); HEMOGLOBIN 8.6 g/dl (12.0-16.0); IMMATURE GRANULOCYTE # (AUTO) 0.1 (0.0-1.0); LYMPHOCYTES # (AUTO) 1.1 K/uL (0.60-3.4); LYMPHOCYTES % (AUTO) 8.4 (10.0-50.0); MEAN CORPUSCULAR HEMOGLOBIN 28.7 pg (27.0-31.0); MEAN CORPUSCULAR VOLUME 92.3 fl (81.0-99.0); MONOCYTES # (AUTO) 0.7 K/uL (0.4-2.0); MONOCYTES % (AUTO) 5.2 (0-10); NEUTROPHILS # (AUTO) 11.4 K/ul (2.0-6.9); NEUTROPHILS % (AUTO) 85.2 % (42.2-75.2); PLATELET COUNT 240 10^3/uL (140-440); RDW COEFFICIENT OF VARIATION 18.4 % (11.6-14.8); WHITE BLOOD COUNT 13.38 K/ul (4.6-10.2)
[2020-05-29 05:22] LABS: PROTHROMBIN TIME 13.5 SEC (9.3-11.0)
[2020-05-29 05:25] LABS: ALANINE AMINOTRANSFERASE 13.9 U/L (0-35); ALBUMIN 2.82 g/dL (3.5-5.0); ALKALINE PHOSPHATASE 128.8 U/L (53-141); ASPARTATE AMINO TRANSFERASE 23.4 U/L (14-36); BILIRUBIN,TOTAL 0.3 mg/dL (0.2-1.3); BLOOD UREA NITROGEN 19.7 mg/dL (7-17); CALCIUM 8.82 mg/dL (8.4-10.2); CARBON DIOXIDE 27.3 mmol/L (22-30.0); CHLORIDE 109.7 mmol/L (98-107); CREATININE 1.13 mg/dL (0.60-1.30); GLUCOSE 115.5 mg/dL (74-106); POTASSIUM 5.43 mmol/L (3.5-5.1); SODIUM 138.8 mmol/L (134.5-145); TOTAL PROTEIN 5.6 g/dL (6.3-8.2)
[2020-05-29] MEDS: PROTONIX PO SCH ×2 (05:53→17:29)
[2020-05-29] MEDS: LASIX TAB PO SCH (05:53)
[2020-05-29] MEDS: SYMBICORT 160-4.5 MCG INHALER IH SCH ×2 (08:46→20:41)
[2020-05-29] MEDS: FERROUS SULFATE PO SCH (08:47)
[2020-05-29] MEDS: FLORASTOR PO SCH ×2 (08:47→20:41)
[2020-05-29] MEDS: BRIMONIDINE TARTRATE 0.2% OPTH SOL EACHEYE SCH ×2 (08:47→20:41)
[2020-05-29] MEDS: XANAX PO SCH ×3 (08:47→20:40)
[2020-05-29] MEDS: COREG PO SCH ×2 (08:48→17:28)
[2020-05-29] MEDS: CLARITIN PO SCH (08:48)
[2020-05-29] MEDS: ULTRAM PO SCH ×2 (08:48→20:40)
[2020-05-29] MEDS: DECADRON IM SCH (08:48)
[2020-05-29] MEDS: MUCINEX PO SCH ×2 (08:48→20:40)
[2020-05-29] MEDS ORDERED: SODIUM CHLORIDE IV SCH (09:00)
[2020-05-29] MEDS ORDERED: TOBRAMYCIN SULFATE IV SCH (09:00)
[2020-05-29 09:02] LABS: ABG PH 7.39 (7.35-7.45)
--- NOTE | 2020-05-29 10:38 | PCM.PROG ---
Attending Provider: ATTENDING PROVIDER: Dr. RAISA RASCON This patient is seen with Zuly Henry, Nurse Practitioner. DATE OF SERVICE: 05/29/20 SUBJECTIVE: This 79 year old /WHITE F was hospitalized 05/27/20. The patient is resting comfortably. She is still labored with talking on 3L with thick yellow sputum. REVIEW OF SYSTEMS: CONSTITUTIONAL: Weakness. No night sweats. No fatigue, malaise, lethargy. No fever or chills. HEENT: Eyes: No visual changes. No eye pain. No eye discharge. ENT: No runny nose. No epistaxis. No sinus pain. No odynophagia. No congestion. RESPIRATORY: Shortness of breath. Cough. No hemoptysis. CARDIOVASCULAR: No angina symptoms. No CHF symptoms. No atypical chest pain for CAD. No palpitations. No orthopnea.. GASTROINTESTINAL: No abdominal pain. No nausea or vomiting. No diarrhea or constipation. No hematemesis. No hematochezia. GENITOURINARY: No urgency. No frequency. No dysuria. No hematuria. No obstructive symptoms. No discharge. No pain. No significant abnormal bleeding. MUSCULOSKELETAL: No musculoskeletal pain; no joint swelling. NEUROLOGICAL: Awake, alert, oriented to time, place and person. No headache. No neck pain. No syncope. No seizures. No dizziness. PSYCHIATRIC: Not anxious. No depression. No suicidal thoughts. No homicidal thoughts. SKIN: No rash. No lesions. No wounds. ENDOCRINE: No unexplained weight loss. No weight gain. HEMATOLOGIC/LYMPHATIC: No anemia. No purpura. No petechiae. No prolonged or excessive bleeding. No palpable lymph nodes. PHYSICAL EXAMINATION: GENERAL: The patient is awake, alert and oriented, lying/sitting in bed in no distress. VITAL SIGNS: Temperature 97.5 F, Pulse 100, Respiratory Rate 18, BP 139/75, Pulse Ox 95% HEENT: Head normocephalic, atraumatic. Eyes: Extraocular muscles are intact. Pupils are equal, round and reactive to light and accommodation. Ears: No lesions. Nose appeared normal. Throat: No exudate or erythema. NECK: Supple. No JVD, no carotid bruit. No lymphadenopathy or thyromegaly. LUNGS: Diminished breath sounds with bilateral rhonchi and wheezing. Percussion note normal. Chest symmetrical. HEART: S1, S2, no S3. No murmurs. No cyanosis or clubbing. No ascites. Pulses: Dorsalis pedis and posterior tibial pulses +1 to +2 both sides. ABDOMEN: Soft. Non-tender. Bowel sounds active. No CVA tenderness. No mass felt. EXTREMITIES: No edema. Full range of motion of all extremities, equal. NEUROLOGIC: No focal deficit. Cranial nerves II through XII are grossly intact. No headache, no double vision or headache. SKIN: Not dry. Intact. Turgor-normal. LYMPHATIC: No palpable lymph nodes/no lymphedema. MUSCULOSKELETAL: Normal joints with no swelling. Muscle tone is normal. LAB REVIEW: 05/29/20 04:49 05/29/20 04:49 05/29/20 04:49: PT 13.5 H, INR 1.27 05/29/20 04:49: Sodium 138.8, Potassium 5.43 H, Chloride 109.7 H, Carbon Dioxide 27.3, Anion Gap 7.23, BUN 19.7 H, Creatinine 1.13, Estimated GFR (MDRD) 47.00, BUN/Creatinine Ratio 17.43, Glucose 115.5 H, Calcium 8.82, Total Bilirubin 0.30, AST 23.4, ALT 13.9, Alkaline Phosphatase 128.8, Total Protein 5.60 L, Albumin 2.82 L, Globulin 2.78, Albumin/Globulin Ratio 1.01 05/29/20 04:49: WBC 13.38 H, RBC 3.00 L, Hgb 8.6 L, Hct 27.7 L, MCV 92.3, MCH 28.7, MCHC 31.0 L, RDW Coeff of Elie 18.4 H, Plt Count 240, Immature Gran % (Auto) 1.0, Neut % (Auto) 85.2 H, Lymph % (Auto) 8.4 L, [place] % (Auto) 5.2, Eos % (Auto) 0.1, Baso % (Auto) 0.1, Neut # (Auto) 11.4 H, Lymph # (Auto) 1.1, [place] # (Auto) 0.7, Eos # (Auto) 0.0, Baso # (Auto) 0.0, Immature Gran # (Auto) 0.1 ASSESSMENT: Please see below. 1. Acute COPD exacerbation. 2. History of persistent pneumonia. 3. History of PE/DVT on Coumadin. 4. Hyperkalemia. 5. Anemia. PLAN: 1. UA 2. Add Symbicort 3. Hold potassium 4. D/C IV fluids 5. Repeat ABGs on 3L Plan and coordination of the patient's care discussed in the presence of Bass String Winder and nurse. CONDITION: stable SCRIBED BY: ZO DANG [employer] scribed while in presence of service performed by Dr. Rascon/Zuly Henry APRN on 05/29/20 ([id number])
[2020-05-29 12:56] LABS: BILIRUBIN,URINE Negative (NEGATIVE); CLARITY,URINE Clear (CLEAR); COLOR,URINE Yellow (YELLOW); GLUCOSE, URINE (UA) Negative (NEGATIVE); KETONES,URINE Negative (NEGATIVE); LEUKOCYTE ESTERASE ,URINE Negative (NEGATIVE); NITRITE,URINE Negative (NEGATIVE); PH,URINE 5.5 (5-9); PROTEIN,URINE Negative (NEGATIVE); URINE, BLOOD Trace-intact (NEGATIVE); UROBILINOGEN,URINE 0.2 (0.2)
[2020-05-29 12:57] LABS: SQUAMOUS EPITHELIAL CELL,UR NOT PRESENT (0-5)
[2020-05-29 12:58] LABS: URINE RBC, MICROSCOPIC 0-2 (0-2)
--- NOTE | 2020-05-29 14:45 | HP ---
DATE OF SERVICE: 05/27/20 HISTORY OF PRESENT ILLNESS: 79-year-old white female brought to the emergency room by the family because of increasing shortness of breath, cough and congestion. The patient has been hospitalized nearly four to five times in the past four months with end-stage chronic lung disease with recurrent Pseudomonas pneumonia and bronchitis. Old records reviewed. PAST MEDICAL/SURGICAL HISTORY: History of severe chronic lung disease Anemia, chronic Generalized osteoarthritis Generalized osteoporosis Atrial fibrillation Fluid overload Right-sided failure Note: The patient has end-stage chronic lung disease with recurrent pneumonia, she has been thinking of being on hospice. REVIEW OF SYSTEMS: CONSTITUTIONAL: Weakness and fatigue. No night sweats. No malaise, lethargy. No fever or chills. HEENT: Eyes: No visual changes. No eye pain. No eye discharge. ENT: No runny nose. No epistaxis. No sinus pain. No sore throat. Some difficulty swallowing. No congestion. RESPIRATORY: Cough with congestion with mildly yellowish sputum production. No hemoptysis. Shortness of breath. CARDIOVASCULAR: Chest pain more pleuritic type, right-sided type with cough and congestion. No palpitations. No PND. No orthopnea. GASTROINTESTINAL: Poor appetite. Unable to eat. Feels weak. No abdominal pain. No nausea or vomiting. No diarrhea or constipation. No hematemesis. No hematochezia. GENITOURINARY: No urgency. No frequency. No dysuria. No hematuria. No obstructive symptoms. No discharge. No pain. No significant abnormal bleeding. MUSCULOSKELETAL: Weakness, inability to walk unless she has support. It is even difficult to sit up in the chair or in the bed but moving all the extremities. NEUROLOGICAL: No headache. No neck pain. No syncope. No seizures. No dizziness. PSYCHIATRIC: Mildly depressed with inability to take care of herself at home. No suicidal thoughts. No homicidal thoughts. SKIN: No rash. No lesions. No wounds. ENDOCRINE: No unexplained weight loss. No weight gain. HEMATOLOGIC/LYMPHATIC: No anemia. No purpura. No petechiae. No prolonged or excessive bleeding. No palpable lymph nodes. PERSONAL/FAMILY/SOCIAL HISTORY/HABITS: The patient is a nonsmoker, no alcohol abuse. No history of drug abuse. The patient is , lives with . Two daughters help the patient take care of her but lately both of them are sick. They have been hospitalized, one with Covid and one with multiple sclerosis and this has really upset the balance of her care. She has frequent hospitalizations. The patient is unable to take care of herself at home. She has declined to go to the group home or assisted living. MEDICATIONS: Xanax 0.25 mg three times a day Carvedilol 3.125 mg b.i.d. Protonix 40 mg twice a day Ferrous Sulfate 325 mg p.o. daily Mucinex 600 mg p.o. q.12 Lasix 20 mg daily Tramadol 50 mg twice a day Loratadine 10 mg p.o. daily Budesonide inhalation twice a day Ipratropium-Albuterol nebulizer four times a day Coumadin 3 mg daily K-Tab 20 mEq daily Florastor 250 mg twice a day Phenergan with Codeine two teaspoonfuls as needed Prednisone 20 mg p.o. daily ALLERGIES: CIPROFLOXACIN, ACETYLCYSTEINE (THAT IS MUCOMYST), HYDROCODONE, GI COCKTAIL PHYSICAL EXAMINATION: GENERAL: The patient is oriented to time, place and person. VITAL SIGNS: Temperature 98.8, pulse 100, respiratory rate 26, blood pressure 133/77, pulse ox 88% on 2L. HEENT: Normal. Face is somewhat swollen. Head normocephalic, atraumatic. Eyes: Conjunctivae are mildly injected. Pupils are equal, round and reactive to light and accommodation. Ears: No lesions. Nose appeared normal. Throat: No exudate or erythema. NECK: Supple. No JVD, no carotid bruit. No lymphadenopathy or thyromegaly. LUNGS: Decreased breath sounds bilaterally with expiratory wheeze. Percussion note normal. HEART: PMI not palpable on auscultation. S1, S2, no S3. No murmur. Mild clubbing. No cyanosis. No ascites. Pulses: Dorsalis pedis and posterior tibial pulses +1 to +2 bilaterally. ABDOMEN: Soft. Nontender. Bowel sounds active. No CVA tenderness. No mass felt. EXTREMITIES: Trace edema. Full range of motion of all extremities, equal. NEUROLOGIC: No focal deficit. Cranial nerves II through XII are grossly intact. No headache, no double vision or headache. SKIN: Not dry. Intact. Turgor - normal. LYMPHATIC: No palpable lymph nodes/no lymphedema. MUSCULOSKELETAL: Normal joints with no swelling. Muscle tone is normal. LABS: Hemoglobin 10.3, hematocrit 32, WBC 22,000, normal differential. Creatinine 1.2, BUN 21, potassium 3.7. ABGs done on FI02 of 100% shows pH of 7.47 with p02 of 145 with pc02 of 53. Saturation of 95%. Oxygen was delivered on nonrebreather that was in the ambulance. Covid negative. ASSESSMENT: 1. Acute exacerbation of COPD with pneumonitis. 2. Severe chronic lung disease end-stage. 3. Hypertension. 4. Dehydration. 5. Chronic anemia. PLAN: 1. Give steroids. 2. Antibiotics: Start out with Gentamicin 340 mg q.24hr, switch after 48 hrs to Tobramycin. 3. D/C Lovenox. 4. The patient's INR is 5.5. 5. Vitamin K was given which was not necessary. 6. In any case will observe the patient. When the INR goes down below 2 will start Coumadin. 7. The patient's nebs/inhalers to be continued as well as the rest of the medications. 8. Potassium supplement needs to be continued. 9. IV fluids 75 cc/hr to be continued. Watch for fluid overload. 10. The patient is DNR. CONDITION: So far stable. Prognosis is guarded. TIME SPENT: More than 70 minutes. MTDD
[2020-05-29] MEDS: COUMADIN PO SCH (17:29)
[2020-05-29] MEDS: PHENERGAN WITH CODEINE 6.25/10 MG/5 ML PO PRN (22:03)
[2020-05-30] MEDS: ATROVENT HFA INHALER (PER PUFF-WITH SPACER) IH SCH ×4 (04:35→23:40)
[2020-05-30] MEDS: VENTOLIN HFA (PER PUFF-WITH SPACER) IH SCH ×4 (04:35→23:40)
[2020-05-30 04:57] LABS: BASOPHILS % (AUTO) 0.3 % (0.0-3.0); EOSINOPHILS % (AUTO) 0.2 % (0.0-7.0); HEMATOCRIT 28.9 % (37.0-47.0); HEMOGLOBIN 9.2 g/dl (12.0-16.0); IMMATURE GRANULOCYTE # (AUTO) 0.1 (0.0-1.0); IMMATURE GRANULOCYTE % (AUTO) 1.2 % (0.0-5.0); LYMPHOCYTES # (AUTO) 1.4 K/uL (0.60-3.4); LYMPHOCYTES % (AUTO) 11.6 (10.0-50.0); MEAN CORPUSCULAR HEMOGLOBIN 28.7 pg (27.0-31.0); MEAN CORPUSCULAR HGB CONC 31.8 (31.8-35.4); MONOCYTES # (AUTO) 0.8 K/uL (0.4-2.0); MONOCYTES % (AUTO) 6.5 (0-10); NEUTROPHILS # (AUTO) 9.5 K/ul (2.0-6.9); NEUTROPHILS % (AUTO) 80.2 % (42.2-75.2); PLATELET COUNT 258 10^3/uL (140-440); RDW COEFFICIENT OF VARIATION 18.1 % (11.6-14.8); RED BLOOD COUNT 3.21 10^6/ul (4.20-5.40); WHITE BLOOD COUNT 11.85 K/ul (4.6-10.2)
[2020-05-30 05:07] LABS: PROTHROMBIN TIME 17.8 SEC (9.3-11.0)
[2020-05-30 05:10] LABS: ALANINE AMINOTRANSFERASE 19.7 U/L (0-35); ALBUMIN 3.19 g/dL (3.5-5.0); ALKALINE PHOSPHATASE 135.9 U/L (53-141); ASPARTATE AMINO TRANSFERASE 27.5 U/L (14-36); BILIRUBIN,TOTAL 0.38 mg/dL (0.2-1.3); BLOOD UREA NITROGEN 24.3 mg/dL (7-17); CALCIUM 9.83 mg/dL (8.4-10.2); CHLORIDE 99.4 mmol/L (98-107); CREATININE 1.09 mg/dL (0.60-1.30); GLUCOSE 84.4 mg/dL (74-106); POTASSIUM 3.89 mmol/L (3.5-5.1); SODIUM 136.1 mmol/L (134.5-145); TOTAL PROTEIN 6.08 g/dL (6.3-8.2)
[2020-05-30] MEDS: LASIX TAB PO SCH (05:36)
[2020-05-30] MEDS: PROTONIX PO SCH ×2 (05:36→17:44)
--- NOTE | 2020-05-30 09:01 | PCM.PROG ---
Attending Provider: ATTENDING PROVIDER: Dr. RAISA RASCON This patient is seen with Zuly Henry, Nurse Practitioner. DATE OF SERVICE: 05/30/20 SUBJECTIVE: This 79 year old /WHITE F was hospitalized 05/27/20. The patient's IV infilrated in the left arm. She has swelling around the elbow, no redness. The nursing staff reported edema last night but only trace in legs this morning. Breathing is about the same with thick sputum. Repeat ABGs yesterday on 3L were improved. REVIEW OF SYSTEMS: CONSTITUTIONAL: Positive for weakness. No night sweats. No fatigue, malaise, l ethargy. No fever or chills. HEENT: Eyes: No visual changes. No eye pain. No eye discharge. ENT: No runny nose. No epistaxis. No sinus pain. No odynophagia. No congestion. RESPIRATORY: Positive for cough and shortness of breath. No congestion. No hemoptysis. CARDIOVASCULAR: No angina symptoms. No CHF symptoms. No atypical chest pain for CAD. No palpitations. No orthopnea.. GASTROINTESTINAL: No abdominal pain. No nausea or vomiting. No diarrhea or constipation. No hematemesis. No hematochezia. GENITOURINARY: No urgency. No frequency. No dysuria. No hematuria. No obstructive symptoms. No discharge. No pain. No significant abnormal bleeding. MUSCULOSKELETAL: No musculoskeletal pain; no joint swelling. NEUROLOGICAL: Awake, alert, oriented to time, place and person. No headache. No neck pain. No syncope. No seizures. No dizziness. PSYCHIATRIC: Not anxious. No depression. No suicidal thoughts. No homicidal thoughts. SKIN: No rash. No lesions. No wounds. ENDOCRINE: No unexplained weight loss. No weight gain. HEMATOLOGIC/LYMPHATIC: No anemia. No purpura. No petechiae. No prolonged or e xcessive bleeding. No palpable lymph nodes. PHYSICAL EXAMINATION: GENERAL: The patient is awake, alert and oriented, lying/sitting in bed in no distress. VITAL SIGNS: Temperature 97.8 F, Pulse 84, Respiratory Rate 18, BP 149/86, Pulse Ox 92% HEENT: Head normocephalic, atraumatic. Eyes: Extraocular muscles are intact. Pupils are equal, round and reactive to light and accommodation. Ears: No lesions. Nose appeared normal. Throat: No exudate or erythema. NECK: Supple. No JVD, no carotid bruit. No lymphadenopathy or thyromegaly. LUNGS: Diminished breath sounds with bilateral rhonchi. Percussion note normal. Chest symmetrical. HEART: S1, S2, no S3. No murmurs. No cyanosis or clubbing. No ascites. Pulses: Dorsalis pedis and posterior tibial pulses +1 to +2 both sides. ABDOMEN: Soft. Non-tender. Bowel sounds active. No CVA tenderness. No mass felt. EXTREMITIES: Trace pedal edema. Full range of motion of all extremities, equal. NEUROLOGIC: No focal deficit. Cranial nerves II through XII are grossly intact. No headache, no double vision or headache. SKIN: Not dry. Intact. Turgor-normal. LYMPHATIC: No palpable lymph nodes/no lymphedema. MUSCULOSKELETAL: Normal joints with no swelling. Muscle tone is normal. LAB REVIEW: 05/30/20 04:35 05/30/20 04:35 05/30/20 04:35: Sodium 136.1, Potassium 3.89, Chloride 99.4, Carbon Dioxide 33.0 H, Anion Gap 7.59, BUN 24.3 H, Creatinine 1.09, Estimated GFR (MDRD) 49.00, BUN/Creatinine Ratio 22.29, Glucose 84.4, Calcium 9.83, Total Bilirubin 0.38, AST 27.5, ALT 19.7, Alkaline Phosphatase 135.9, Total Protein 6.08 L, Albumin 3.19 L, Globulin 2.89, Albumin/Globulin Ratio 1.10 05/30/20 04:35: PT 17.8 H, INR 1.67 05/30/20 04:35: WBC 11.85 H, RBC 3.21 L, Hgb 9.2 L, Hct 28.9 L, MCV 90.0, MCH 28.7, MCHC 31.8, RDW Coeff of Elie 18.1 H, Plt Count 258, Immature Gran % (Auto) 1.2, Neut % (Auto) 80.2 H, Lymph % (Auto) 11.6, [place] % (Auto) 6.5, Eos % (Auto) 0.2, Baso % (Auto) 0.3, Neut # (Auto) 9.5 H, Lymph # (Auto) 1.4, [place] # (Auto) 0.8, Eos # (Auto) 0.0, Baso # (Auto) 0.0, Immature Gran # (Auto) 0.1 05/29/20 12:49: Urine Color Yellow, Urine Clarity Clear, Urine pH 5.5, Ur Specific [place] 1.015, Urine Protein Negative, Urine Glucose (UA) Negative, Urine Ketones Negative, Urine Blood Trace-intact H, Urine Nitrite Negative, Urine Bilirubin Negative, Urine Urobilinogen 0.2, Ur Leukocyte Esterase Negative, Urine Microscopic RBC 0-2, Ur Squamous Epith Cells Not present 05/29/20 08:36: Puncture Site Rbrach, Base Excess 4.1 H, O2 Saturation 94.3, ABG pH 7.39, ABG pCO2 48.0 H, ABG pO2 73.0 L, ABG HCO3 29.1 H, ABG Total CO2 30.6 H, Hemoglobin 0.7, Oxyhemoglobin 93.5 L, Carboxyhemoglobin 2.7 H, Total Hemoglobin 10.3 L, O2 Delivery Device Cannula, Oxygen Liter Flow 3.00 ASSESSMENT: Please see below. 1. Acute COPD exacerbation. 2. History of persistent pneumonia. 3. History of PE/DVT on Coumadin. 4. Hyperkalemia. 5. Anemia. PLAN: 1. Coumadin 6 mg for today only. Tomorrow resume 3 mg. 2. Prednisone 20 mg b.i.d. 3. D/C Decadron. 4. Warm compresses to the elbow. Plan and coordination of the patient's care discussed in the presence of Shift Boss and nurse. CONDITION: Stable SCRIBED BY: ZO DANG Rest Room Attendant scribed while in presence of service performed by Dr. Rascon/Zuly Henry APRN on 05/30/20 ([id number])
[2020-05-30] MEDS: XANAX PO SCH ×3 (09:06→20:12)
[2020-05-30] MEDS: FERROUS SULFATE PO SCH (09:07)
[2020-05-30] MEDS: FLORASTOR PO SCH ×2 (09:07→20:11)
[2020-05-30] MEDS: PREDNISONE PO SCH ×2 (09:07→17:45)
[2020-05-30] MEDS: ULTRAM PO SCH ×2 (09:07→20:12)
[2020-05-30] MEDS: BRIMONIDINE TARTRATE 0.2% OPTH SOL EACHEYE SCH ×2 (09:07→20:11)
[2020-05-30] MEDS: COREG PO SCH ×2 (09:07→17:45)
[2020-05-30] MEDS: MUCINEX PO SCH ×2 (09:07→20:12)
[2020-05-30] MEDS: SYMBICORT 160-4.5 MCG INHALER IH SCH ×2 (09:07→20:11)
[2020-05-30] MEDS: CLARITIN PO SCH (09:07)
[2020-05-30] MEDS ORDERED: COUMADIN PO ONE (17:00)
[2020-05-30] MEDS: COUMADIN PO SCH (17:45)
[2020-05-30] MEDS: PHENERGAN WITH CODEINE 6.25/10 MG/5 ML PO PRN (20:12)
[2020-05-31] MEDS: VENTOLIN HFA (PER PUFF-WITH SPACER) IH SCH ×4 (04:45→22:40)
[2020-05-31] MEDS: ATROVENT HFA INHALER (PER PUFF-WITH SPACER) IH SCH ×4 (04:45→22:40)
[2020-05-31 05:44] LABS: BASOPHILS % (AUTO) 0.1 % (0.0-3.0); HEMATOCRIT 31.1 % (37.0-47.0); HEMOGLOBIN 9.9 g/dl (12.0-16.0); IMMATURE GRANULOCYTE # (AUTO) 0.2 (0.0-1.0); IMMATURE GRANULOCYTE % (AUTO) 1.6 % (0.0-5.0); LYMPHOCYTES # (AUTO) 1.2 K/uL (0.60-3.4); LYMPHOCYTES % (AUTO) 9.8 (10.0-50.0); MEAN CORPUSCULAR HEMOGLOBIN 28.5 pg (27.0-31.0); MEAN CORPUSCULAR HGB CONC 31.8 (31.8-35.4); MEAN CORPUSCULAR VOLUME 89.6 fl (81.0-99.0); MONOCYTES # (AUTO) 0.5 K/uL (0.4-2.0); MONOCYTES % (AUTO) 4.1 (0-10); NEUTROPHILS # (AUTO) 10.6 K/ul (2.0-6.9); NEUTROPHILS % (AUTO) 84.4 % (42.2-75.2); PLATELET COUNT 277 10^3/uL (140-440); RDW COEFFICIENT OF VARIATION 18.1 % (11.6-14.8); RED BLOOD COUNT 3.47 10^6/ul (4.20-5.40)
[2020-05-31] MEDS: PROTONIX PO SCH ×2 (05:44→16:46)
[2020-05-31] MEDS: LASIX TAB PO SCH (05:44)
[2020-05-31 05:54] LABS: PROTHROMBIN TIME 20.8 SEC (9.3-11.0)
[2020-05-31 05:56] LABS: ALANINE AMINOTRANSFERASE 20.6 U/L (0-35); ALBUMIN 3.48 g/dL (3.5-5.0); ALKALINE PHOSPHATASE 135.9 U/L (53-141); ASPARTATE AMINO TRANSFERASE 26.9 U/L (14-36); BILIRUBIN,TOTAL 0.42 mg/dL (0.2-1.3); BLOOD UREA NITROGEN 33.4 mg/dL (7-17); CALCIUM 10.14 mg/dL (8.4-10.2); CARBON DIOXIDE 36.3 mmol/L (22-30.0); CHLORIDE 95.9 mmol/L (98-107); CREATININE 1.18 mg/dL (0.60-1.30); GLUCOSE 114.1 mg/dL (74-106); POTASSIUM 4.16 mmol/L (3.5-5.1); SODIUM 135.9 mmol/L (134.5-145); TOTAL PROTEIN 6.63 g/dL (6.3-8.2)
[2020-05-31] MEDS ORDERED: TYLENOL PO PRN (08:00)
[2020-05-31] MEDS: MUCINEX PO SCH ×2 (08:24→21:03)
[2020-05-31] MEDS: BRIMONIDINE TARTRATE 0.2% OPTH SOL EACHEYE SCH ×2 (08:24→21:04)
[2020-05-31] MEDS: XANAX PO SCH ×3 (08:24→21:03)
[2020-05-31] MEDS: PREDNISONE PO SCH ×2 (08:24→16:46)
[2020-05-31] MEDS: SYMBICORT 160-4.5 MCG INHALER IH SCH ×2 (08:24→21:03)
[2020-05-31] MEDS: COREG PO SCH ×2 (08:25→16:46)
[2020-05-31] MEDS: ULTRAM PO SCH ×2 (08:25→21:03)
[2020-05-31] MEDS: FERROUS SULFATE PO SCH (08:25)
[2020-05-31] MEDS: CLARITIN PO SCH (08:25)
[2020-05-31] MEDS: FLORASTOR PO SCH ×2 (08:25→21:03)
--- NOTE | 2020-05-31 10:28 | PN ---
DATE OF SERVICE: 05/28/2020 SUBJECTIVE: 79 year old white female hospitalized with acute bronchitis exacerbation. The patient's condition seems to have improved. She is feeling better. WBC is down to 14,000 from 22,000. His INR is 1.59 more than 6 yesterday REVIEW OF SYSTEMS: CONSTITUTIONAL: No night sweats. No fatigue, malaise, lethargy. No fever or chills. Feeling better. Strength is somewhat better. HEENT: Eyes: No visual changes. No eye pain. No eye discharge. ENT: No runny nose. No epistaxis. No sinus pain. No sore throat. No odynophagia. No congestion. RESPIRATORY: No cough, no congestion. No hemoptysis. No shortness of breath. CARDIOVASCULAR: No angina symptoms. No CHF symptoms. No atypical chest pain for CAD. No palpitations. No PND. No orthopnea. GASTROINTESTINAL: No abdominal pain. No nausea or vomiting. No diarrhea or constipation. No hematemesis. No hematochezia. Appetite has improved. GENITOURINARY: No urgency. No frequency. No dysuria. No hematuria. No obstructive symptoms. No discharge. No pain. No significant abnormal bleeding. MUSCULOSKELETAL: No musculoskeletal pain; no joint swelling. NEUROLOGICAL: No headache. No neck pain. No syncope. No seizures. No dizziness. PSYCHIATRIC: Not anxious. No depression. No suicidal thoughts. No homicidal thoughts. SKIN: No rash. No lesions. No wounds. ENDOCRINE: No unexplained weight loss. No weight gain. HEMATOLOGIC/LYMPHATIC: No anemia. No purpura. No petechiae. No prolonged or excessive bleeding. No palpable lymph nodes. PHYSICAL EXAMINATION: VITAL SIGNS: Temperature 98.2, pulse 95, respiratory rate 18, blood pressure 137/82 and pulse ox 96% on 3 liters. HEENT: Head normocephalic, atraumatic. Eyes: Extraocular muscles are intact. Pupils are equal, round and reactive to light and accommodation. Ears: No lesions. Nose appeared normal. Throat: No exudate or erythema. NECK: Supple. No JVD, no carotid bruit. No lymphadenopathy or thyromegaly. LUNGS: Decreased breath sounds with mild expiratory wheezing. Clear to auscultation. Percussion note normal. Chest symmetrical. HEART: S1, S2, no S3. No murmurs. No cyanosis or clubbing. No ascites. Pulses: Dorsalis pedis and posterior tibial pulses +1 to +2 bilaterally. ABDOMEN: Soft. Nontender. Bowel sounds active. No CVA tenderness. No mass felt. EXTREMITIES: No edema. Full range of motion of all extremities, equal. NEUROLOGIC: No focal deficit. Cranial nerves II through XII are grossly intact. No headache, no double vision or headache. SKIN: Not dry. Intact. Turgor - normal. LYMPHATIC: No palpable lymph nodes/no lymphedema. MUSCULOSKELETAL: Normal joints with no swelling. Muscle tone is normal. LABS: Hgb 9.3, hct 28, WBC 14,000 normal differential, creatinine 1, BUN 18, potassium 4.1. ASSESSMENT: 1. Acute exacerbation of COPD with respiratory failure with end stage chronic lung disease PLAN: 1. Continue Tobramycin 2. The patient was given Vitamin K and the INR is 1.59. We will resume the Coumadin to 3mg whatever the dose was before. 3. She is on 3 liters of oxygen given 100% nonbreather on admission and her PO2 was 145. High pCO2. There is no need to do blood gasses. We will keep that oxygen saturation between 90-95%. CONDITION: Stable. PROGNOSIS: Guarded. TIME SPENT: More than 30 minutes. Plan and coordination of the patient's care discussed in the presence of nurse. ANETA
[2020-05-31] MEDS: SODIUM CHLORIDE IV SCH (10:40)
[2020-05-31] MEDS: TOBRAMYCIN SULFATE IV SCH (10:40)
--- NOTE | 2020-05-31 11:40 | PN ---
DATE OF SERVICE: 05/29/2020 SUBJECTIVE: The patient was seen and examined with the Nurse Practitioner. The patient's condition is slowly improving. She is feeling better and appetite has improved. The patient is on Tobramycin. The patient has recurrent pseudomonas pneumonitis with severe chronic lung disease. PROGNOSIS: Guarded. TIME SPENT: More than 30 minutes. Plan and coordination of the patient's care discussed in the presence of nurse. ANETA
[2020-05-31] MEDS: COUMADIN PO SCH (16:47)
[2020-05-31] MEDS: PHENERGAN WITH CODEINE 6.25/10 MG/5 ML PO PRN (21:03)
[2020-06-01] MEDS: VENTOLIN HFA (PER PUFF-WITH SPACER) IH SCH ×4 (05:25→23:00)
[2020-06-01] MEDS: ATROVENT HFA INHALER (PER PUFF-WITH SPACER) IH SCH ×4 (05:25→23:00)
[2020-06-01] MEDS: LASIX TAB PO SCH (05:30)
[2020-06-01] MEDS: PROTONIX PO SCH ×2 (05:30→16:15)
[2020-06-01 06:11] LABS: BASOPHILS % (AUTO) 0.1 % (0.0-3.0); HEMATOCRIT 29.1 % (37.0-47.0); HEMOGLOBIN 9.3 g/dl (12.0-16.0); IMMATURE GRANULOCYTE # (AUTO) 0.2 (0.0-1.0); IMMATURE GRANULOCYTE % (AUTO) 1.7 % (0.0-5.0); LYMPHOCYTES # (AUTO) 1.1 K/uL (0.60-3.4); LYMPHOCYTES % (AUTO) 10.2 (10.0-50.0); MEAN CORPUSCULAR HEMOGLOBIN 28.4 pg (27.0-31.0); MONOCYTES # (AUTO) 0.7 K/uL (0.4-2.0); MONOCYTES % (AUTO) 6.4 (0-10); NEUTROPHILS # (AUTO) 8.6 K/ul (2.0-6.9); NEUTROPHILS % (AUTO) 81.6 % (42.2-75.2); PLATELET COUNT 247 10^3/uL (140-440); RDW COEFFICIENT OF VARIATION 17.9 % (11.6-14.8); RED BLOOD COUNT 3.27 10^6/ul (4.20-5.40); WHITE BLOOD COUNT 10.52 K/ul (4.6-10.2)
[2020-06-01 06:31] LABS: ALANINE AMINOTRANSFERASE 17.4 U/L (0-35); ALBUMIN 3.06 g/dL (3.5-5.0); ALKALINE PHOSPHATASE 123.9 U/L (53-141); ASPARTATE AMINO TRANSFERASE 22.5 U/L (14-36); BILIRUBIN,TOTAL 0.31 mg/dL (0.2-1.3); BLOOD UREA NITROGEN 30.8 mg/dL (7-17); CALCIUM 9.85 mg/dL (8.4-10.2); CARBON DIOXIDE 37.6 mmol/L (22-30.0); CHLORIDE 95.7 mmol/L (98-107); CREATININE 1.19 mg/dL (0.60-1.30); GLUCOSE 105.1 mg/dL (74-106); POTASSIUM 3.71 mmol/L (3.5-5.1); SODIUM 136.9 mmol/L (134.5-145); TOTAL PROTEIN 5.97 g/dL (6.3-8.2)
[2020-06-01 06:32] LABS: PROTHROMBIN TIME 35.5 SEC (9.3-11.0)
[2020-06-01] MEDS: MUCINEX PO SCH ×2 (08:18→20:55)
[2020-06-01] MEDS: XANAX PO SCH ×3 (08:18→20:55)
[2020-06-01] MEDS: FLORASTOR PO SCH ×2 (08:18→20:55)
[2020-06-01] MEDS: CLARITIN PO SCH (08:18)
[2020-06-01] MEDS: SYMBICORT 160-4.5 MCG INHALER IH SCH ×2 (08:19→20:56)
[2020-06-01] MEDS: COREG PO SCH ×2 (08:19→16:15)
[2020-06-01] MEDS: FERROUS SULFATE PO SCH (08:19)
[2020-06-01] MEDS: BRIMONIDINE TARTRATE 0.2% OPTH SOL EACHEYE SCH ×2 (08:19→20:56)
[2020-06-01] MEDS: ULTRAM PO SCH ×2 (08:19→20:55)
[2020-06-01] MEDS: PREDNISONE PO SCH ×2 (08:19→16:15)
[2020-06-01] MEDS: ANTIVERT PO PRN (16:19)
[2020-06-01] MEDS: TOBRAMYCIN SULFATE IV SCH (20:56)
[2020-06-01] MEDS: SODIUM CHLORIDE IV SCH (20:56)
[2020-06-01] MEDS: PHENERGAN WITH CODEINE 6.25/10 MG/5 ML PO PRN (20:56)
[2020-06-02] MEDS: ATROVENT HFA INHALER (PER PUFF-WITH SPACER) IH SCH ×2 (04:30→11:10)
[2020-06-02] MEDS: VENTOLIN HFA (PER PUFF-WITH SPACER) IH SCH ×2 (04:30→11:10)
[2020-06-02 04:42] LABS: BASOPHILS % (AUTO) 0.1 % (0.0-3.0); HEMATOCRIT 30.8 % (37.0-47.0); HEMOGLOBIN 9.8 g/dl (12.0-16.0); IMMATURE GRANULOCYTE # (AUTO) 0.3 (0.0-1.0); IMMATURE GRANULOCYTE % (AUTO) 1.9 % (0.0-5.0); LYMPHOCYTES # (AUTO) 1.1 K/uL (0.60-3.4); LYMPHOCYTES % (AUTO) 8.1 (10.0-50.0); MEAN CORPUSCULAR HEMOGLOBIN 28.2 pg (27.0-31.0); MEAN CORPUSCULAR HGB CONC 31.8 (31.8-35.4); MEAN CORPUSCULAR VOLUME 88.8 fl (81.0-99.0); MONOCYTES # (AUTO) 0.8 K/uL (0.4-2.0); MONOCYTES % (AUTO) 5.8 (0-10); NEUTROPHILS # (AUTO) 11.6 K/ul (2.0-6.9); NEUTROPHILS % (AUTO) 84.1 % (42.2-75.2); PLATELET COUNT 259 10^3/uL (140-440); RDW COEFFICIENT OF VARIATION 18.2 % (11.6-14.8); RED BLOOD COUNT 3.47 10^6/ul (4.20-5.40); WHITE BLOOD COUNT 13.75 K/ul (4.6-10.2)
[2020-06-02 05:03] LABS: ALBUMIN 3.15 g/dL (3.5-5.0); ASPARTATE AMINO TRANSFERASE 25.6 U/L (14-36); BILIRUBIN,TOTAL 0.34 mg/dL (0.2-1.3); CALCIUM 9.48 mg/dL (8.4-10.2); CARBON DIOXIDE 36.9 mmol/L (22-30.0); CHLORIDE 95.3 mmol/L (98-107); CREATININE 1.2 mg/dL (0.60-1.30); GLUCOSE 136.8 mg/dL (74-106); POTASSIUM 3.9 mmol/L (3.5-5.1); SODIUM 135.3 mmol/L (134.5-145); TOTAL PROTEIN 6.08 g/dL (6.3-8.2)
[2020-06-02 05:04] LABS: PROTHROMBIN TIME 36.3 SEC (9.3-11.0)
[2020-06-02] MEDS: LASIX TAB PO SCH (05:56)
[2020-06-02] MEDS: PROTONIX PO SCH (05:56)
[2020-06-02 06:15] VITALS: BP 122/78; TEMP 97.9
[2020-06-02] MEDS: CLARITIN PO SCH (08:33)
[2020-06-02] MEDS: ULTRAM PO SCH (08:33)
[2020-06-02] MEDS: XANAX PO SCH (08:33)
[2020-06-02] MEDS: MUCINEX PO SCH (08:33)
[2020-06-02] MEDS: FLORASTOR PO SCH (08:33)
[2020-06-02] MEDS: COREG PO SCH (08:34)
[2020-06-02] MEDS: FERROUS SULFATE PO SCH (08:34)
[2020-06-02] MEDS: BRIMONIDINE TARTRATE 0.2% OPTH SOL EACHEYE SCH (08:34)
[2020-06-02] MEDS: SYMBICORT 160-4.5 MCG INHALER IH SCH (08:34)
[2020-06-02] MEDS: PREDNISONE PO SCH (08:34)
--- NOTE | 2020-06-02 09:12 | PCM.PROG ---
Attending Provider: ATTENDING PROVIDER: Dr. RAISA RASCON DATE OF SERVICE: 06/02/20 SUBJECTIVE: This 79 year old /WHITE F was hospitalized 05/27/20 with acute pneumonitis, recurrent pneumonia with Pseudeomas as well as severe chronlc lung disease, end-stage, slowly improved on Tobramycin and hospital care provided by the health care providers. REVIEW OF SYSTEMS: CONSTITUTIONAL: No night sweats. No fatigue, malaise, lethargy. No fever or chills. HEENT: Eyes: No visual changes. No eye pain. No eye discharge. ENT: No runny nose. No epistaxis. No sinus pain. No odynophagia. No congestion. RESPIRATORY: No cough, no congestion. No hemoptysis. No shortness of breath. CARDIOVASCULAR: No angina symptoms. No CHF symptoms. No atypical chest pain for CAD. No palpitations. No orthopnea.. GASTROINTESTINAL: Appetite improved. No abdominal pain. No nausea or vomiting. No diarrhea or constipation. No hematemesis. No hematochezia. GENITOURINARY: No urgency. No frequency. No dysuria. No hematuria. No obstructive symptoms. No discharge. No pain. No significant abnormal bleeding. MUSCULOSKELETAL: No musculoskeletal pain; no joint swelling. NEUROLOGICAL: Awake, alert, oriented to time, place and person. No headache. No neck pain. No syncope. No seizures. No dizziness. PSYCHIATRIC: Not anxious. No depression. No suicidal thoughts. No homicidal thoughts. SKIN: No rash. No lesions. No wounds. ENDOCRINE: No unexplained weight loss. No weight gain. HEMATOLOGIC/LYMPHATIC: No anemia. No purpura. No petechiae. No prolonged or excessive bleeding. No palpable lymph nodes. PHYSICAL EXAMINATION: GENERAL: The patient is awake, alert and oriented, lying/sitting in bed in no distress. VITAL SIGNS: Temperature 97.9 F, Pulse 92, Respiratory Rate 20, BP 122/78, Pulse Ox 97% HEENT: Head normocephalic, atraumatic. Eyes: Extraocular muscles are intact. Pupils are equal, round and reactive to light and accommodation. Ears: No lesions. Nose appeared normal. Throat: No exudate or erythema. NECK: Supple. No JVD, no carotid bruit. No lymphadenopathy or thyromegaly. LUNGS: Decreased breath sounds with mild expiratory wheeze. Percussion note normal. Chest symmetrical. HEART: S1, S2, no S3. No murmurs. No cyanosis or clubbing. No ascites. Pulses: Dorsalis pedis and posterior tibial pulses +1 to +2 both sides. ABDOMEN: Soft. Non-tender. Bowel sounds active. No CVA tenderness. No mass felt. EXTREMITIES: No edema. Full range of motion of all extremities, equal. NEUROLOGIC: No focal deficit. Cranial nerves II through XII are grossly intact. No headache, no double vision or headache. SKIN: Warm and dry. Intact. Turgor-normal. LYMPHATIC: No palpable lymph nodes/no lymphedema. MUSCULOSKELETAL: Normal joints with no swelling. Muscle tone is normal. LAB REVIEW: 06/02/20 04:20 06/02/20 04:20 06/02/20 04:20: Sodium 135.3, Potassium 3.90, Chloride 95.3 L, Carbon Dioxide 3 6.9 H, Anion Gap 7.00, BUN 33.0 H, Creatinine 1.20, Estimated GFR (MDRD) 44.00, BUN/Creatinine Ratio 27.50, Glucose 136.8 H, Calcium 9.48, Total Bilirubin 0.34, AST 25.6, ALT 17.0, Alkaline Phosphatase 150.0 H D, Total Protein 6.08 L, Albumin 3.15 L, Globulin 2.93, Albumin/Globulin Ratio 1.07 06/02/20 04:20: PT 36.3 H, INR 3.38 06/02/20 04:20: WBC 13.75 H, RBC 3.47 L, Hgb 9.8 L, Hct 30.8 L, MCV 88.8, MCH 28.2, MCHC 31.8, RDW Coeff of Elie 18.2 H, Plt Count 259, Immature Gran % (Auto) 1.9, Neut % (Auto) 84.1 H, Lymph % (Auto) 8.1 L, [place] % (Auto) 5.8, Eos % (Auto) 0.0, Baso % (Auto) 0.1, Neut # (Auto) 11.6 H, Lymph # (Auto) 1.1, [place] # (Auto) 0.8, Eos # (Auto) 0.0, Baso # (Auto) 0.0, Immature Gran # (Auto) 0.3 ASSESSMENT: 1. Acute recurrent pneumonitis/pneumonia with Pseudomonas seems to be improving with Tobramycin. 2. End-stage chronic lung disease. PLAN: 1. Discharge home on low dose steroids, Prednisone 10 mg p.o. daily. 2. Augmentin 750 mg two times a day with meals times seven days. 3. Hospice discussed 4. Will see back in the office in 7 days. Plan and coordination of the patient's care discussed in the presence of Risk Control Representative and nurse. CONDITION: Stable. Prognosis is poor. SCRIBED BY: ZO DANG Carpentry Instructor scribed while in presence of service performed by Dr. RAISA RASCON on 06/02/20 ([id number])
[2020-06-02] MEDS: ANTIVERT PO PRN (10:07)
--- NOTE | 2020-06-02 11:16 | PN ---
DATE OF SERVICE: 05/30/2020 SUBJECTIVE: The patient was seen and examined with the Nurse Practitioner. The patient's condition is slowly improving. She is on Tobramycin. Continue the same treatment. TIME SPENT: More than 30 minutes. Plan and coordination of the patient's care discussed in the presence of nurse. ANETA
--- NOTE | 2020-06-02 11:43 | PN ---
DATE OF SERVICE: 05/31/2020 SUBJECTIVE: REVIEW OF SYSTEMS: CONSTITUTIONAL: No night sweats. Fatigue is still the same. No fever or chills. HEENT: Eyes: No visual changes. No eye pain. No eye discharge. ENT: No runny nose. No epistaxis. No sinus pain. No sore throat. No odynophagia. No congestion. RESPIRATORY: No cough, no congestion. No hemoptysis. Shortness of breath on minimal exertion but much less than when she came in. She is able to talk a few sentences at a time. CARDIOVASCULAR: No angina symptoms. No CHF symptoms. No atypical chest pain for CAD. No palpitations. No PND. No orthopnea. GASTROINTESTINAL: No abdominal pain. No nausea or vomiting. No diarrhea or constipation. No hematemesis. No hematochezia. Appetite seems to be improving some. GENITOURINARY: No urgency. No frequency. No dysuria. No hematuria. No obstructive symptoms. No discharge. No pain. No significant abnormal bleeding. MUSCULOSKELETAL: No musculoskeletal pain; no joint swelling. NEUROLOGICAL: No headache. No neck pain. No syncope. No seizures. No dizziness. PSYCHIATRIC: Not anxious. No depression. No suicidal thoughts. No homicidal thoughts. SKIN: No rash. No lesions. No wounds. ENDOCRINE: No unexplained weight loss. No weight gain. HEMATOLOGIC/LYMPHATIC: No anemia. No purpura. No petechiae. No prolonged or excessive bleeding. No palpable lymph nodes. PHYSICAL EXAMINATION: GENERAL: The patient is oriented to time, place and person. HEENT: Head normocephalic, atraumatic. Eyes: Extraocular muscles are intact. Pupils are equal, round and reactive to light and accommodation. Ears: No lesions. Nose appeared normal. Throat: No exudate or erythema. NECK: Supple. No JVD, no carotid bruit. No lymphadenopathy or thyromegaly. LUNGS: Decreased breaths sounds with wheeze expiratory. Percussion note normal. Chest symmetrical. HEART: S1, S2, no S3. No murmurs. No cyanosis or clubbing. No ascites. Pulses: Dorsalis pedis and posterior tibial pulses +1 to +2 bilaterally. ABDOMEN: Soft. Nontender. Bowel sounds active. No CVA tenderness. No mass felt. EXTREMITIES: Trace edema. Full range of motion of all extremities, equal. NEUROLOGIC: No focal deficit. Cranial nerves II through XII are grossly intact. No headache, no double vision or headache. SKIN: Not dry. Intact. Turgor - normal. LYMPHATIC: No palpable lymph nodes/no lymphedema. MUSCULOSKELETAL: Normal joints with no swelling. Muscle tone is normal. LABS: Stable with stable anemia and stable kidney function. ASSESSMENT: 1. Acute pneumonia/bronchitis with severe chronic lung disease end stage. Again talked about Hospice for nearly 10-15 minutes. She brought up the subject. PLAN: 1. Tobramycin, continued according to the pharmacy 2. Continue to monitor CBC and CMP and oximetry CONDITION: Stable PROGNOSIS: Poor TIME SPENT: More than 30 minutes. Plan and coordination of the patient's care discussed in the presence of nurse. AENTA
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
--- NOTE | 2020-06-02 12:04 | CM.DICTOOL ---
ADMISSION: 05/27/20 10:08 DISCHARGE: JUNE 02, 2020 DATE OF SERVICE: 06/02/20 FINAL DIAGNOSIS ACUTE COPD EXACERBATION WITH PNEUMONITIS SEVERE CHRONIC LUNG DISEASE END-STAGE HYPERTENSION- CONTROLLED DEHYDRATION- RESOLVED CHRONIC ANEMIA HISTORY OF PERSISTENT PNEUMONIA* HISTORY OF PE/DVT ON COUMADIN* HYPERKALEMIA* GENERALIZED WEAKNESS* HX: ATRIAL FIBRILATION- COUMADIN THERAPY RIGHT SIDED FAILURE FLUID OVERLOAD BILATERAL PNEUMONIA, PERSISTENT HISTORY OF PSEUDOMONAS AERUGINOSA PER SPUTUM CULTURE WHICH I DO BELIEVE SHE IS COLONIZED END STAGE SEVERE COPD, OXYGEN AND STEROID DEPENDENT CHRONIC RESPIRATORY FAILURE EMPHYSEMA, SEVERE PER CT* PULMONARY FIBROSIS PULMONARY NODULE, FOLLOWED BY DR. OLIVAS DVT/PE (ON COUMADIN) HYPERTENSION CHRONIC ANEMIA LEG EDEMA ANXIETY GERD DEGENERATIVE DISC DISEASE SMOKER/TOBACCO USE- OCCASIONAL NOW ARTHRITIS LT SHOULDER GENERALIZED ARTHRITIS GENERALIZED OSTEOPOROSIS RECURRENT GOUT VAGINAL CANDIDIASIS COMPRESSION FRACTURE, T9 (STABLE) OSTEOPENIA SURGICAL HISTORY: HYSTERECTOMY LAST VITALS Temp Pulse Resp BP Pulse Ox 97.9 F 92 H 20 122/78 96 06/02/20 06:00 06/02/20 06:00 06/02/20 06:00 06/02/20 06:00 06/02/20 10:00 TAKE THESE MEDICATIONS AT HOME Acetaminophen (Acetaminophen 325 Mg Tablet) 650 mg PO Q4HR PRN PRN Reason: Fever >101/pain Alprazolam (Alprazolam 0.25 Mg Tablet) 0.25 mg PO TID [facility] Last Admin: 06/02/20 08:33 Dose: 0.25 mg Documented by: Brimonidine Tartrate (Brimonidine Tartrate 0.2% 5 Ml Btl) 1 drop EACHEYE BID [facility] Last Admin: 06/02/20 08:34 Dose: 1 drop Documented by: Carvedilol (Carvedilol 3.125 Mg Tablet) 3.125 mg PO BIDWM [facility] Last Admin: 06/02/20 08:34 Dose: 3.125 mg Documented by: Ferrous Sulfate (Ferrous Sulfate 324 Mg Tablet.) 324 mg PO DAILY [facility] Last Admin: 06/02/20 08:34 Dose: 324 mg Documented by: Furosemide (Furosemide 20 Mg Tablet) 20 mg PO QDAC [facility] Last Admin: 06/02/20 05:56 Dose: 20 mg Documented by: Guaifenesin (Guaifenesin 600 Mg Tablet.Er) 600 mg PO Q12HR [facility] Last Admin: 06/02/20 08:33 Dose: 600 mg Documented by: Loratadine (Loratadine 10 Mg Tablet) 10 mg PO DAILY [facility] Last Admin: 06/02/20 08:33 Dose: 10 mg Documented by: Meclizine HCl (Meclizine Hcl 25 Mg Tablet) 25 mg PO TID PRN PRN Reason: Dizziness Last Admin: 06/02/20 10:07 Dose: 25 mg Documented by: Pantoprazole Sodium (Pantoprazole Sodium 40 Mg Tablet.) 40 mg PO BIDAC [facility] Last Admin: 06/02/20 05:56 Dose: 40 mg Documented by: Promethazine HCl/Codeine (Promethazine/Codeine Syrup 6.25/10 Mg/5 Ml Disp.Syringe) 10 ml PO Q6H PRN PRN Reason: COUGH/NAUSEA Last Admin: 06/01/20 20:56 Dose: 10 ml Documented by: Saccharomyces Boulardii (Saccharomyces Boulardii 250 Mg Capsule) 250 mg PO BID [facility] Last Admin: 06/02/20 08:33 Dose: 250 mg Documented by: Tramadol HCl (Tramadol Hcl 50 Mg Tablet) 50 mg PO BID [facility] Last Admin: 06/02/20 08:33 Dose: 50 mg Documented by: DUONEB 3 ML TID, MAY INCREASE TO QID IF NEEDED BUDESONIDE 0.5 MG NEBULIZER BID AUGMENTIN 875/125 MG PO WITH FOOD BID X 7 DAYS, START 06/03/2020 PREDNISONE 10 MG PO DAILY WITH FOOD, START 06/03/2020 ALLERGIES ciprofloxacin [From Cipro] Adverse Reaction (Intermediate, Verified 05/27/20 07:16) acetylcysteine [From Mucomyst] Adverse Reaction (Verified 05/27/20 07:16) hydrocodone Adverse Reaction (Verified 05/27/20 07:16) Abdominal Pain gi cocktail Adverse Reaction (Uncoded 02/28/20 20:24) mucomyst Adverse Reaction (Uncoded 02/28/20 20:24) Head pressure DISCONTINUED MEDICATIONS 1). HOLD COUMADIN ( HOME HEALTH TO CHECK PT/INR 06/03/2020) 2). DISCONTINUE POTASSIUM NEW PRESCRIPTIONS: AUGMENTIN 875/125 MG PO WITH FOOD BID X 7 DAYS, START 06/03/2020 PREDNISONE 10 MG PO DAILY WITH FOOD, START 06/03/2020 SMOKING: SMOKING CESSATION DISEASE SPECIFIC EDUCATION: END STAGE COPD ENERGY CONSERVATION BLEEDING PRECAUTIONS COVID 19 LAB REVIEW: 06/02/20 04:20 06/02/20 04:20 06/02/20 04:20: Sodium 135.3, Potassium 3.90, Chloride 95.3 L, Carbon Dioxide 36.9 H, Anion Gap 7.00, BUN 33.0 H, Creatinine 1.20, Estimated GFR (MDRD) 44.00, BUN/Creatinine Ratio 27.50, Glucose 136.8 H, Calcium 9.48, Total Bilirubin 0.34, AST 25.6, ALT 17.0, Alkaline Phosphatase 150.0 H D, Total Protein 6.08 L, Albumin 3.15 L, Globulin 2.93, Albumin/Globulin Ratio 1.07 06/02/20 04:20: PT 36.3 H, INR 3.38 06/02/20 04:20: WBC 13.75 H, RBC 3.47 L, Hgb 9.8 L, Hct 30.8 L, MCV 88.8, MCH 28.2, MCHC 31.8, RDW Coeff of Elie 18.2 H, Plt Count 259, Immature Gran % (Auto) 1.9, Neut % (Auto) 84.1 H, Lymph % (Auto) 8.1 L, Door % (Auto) 5.8, Eos % (Auto) 0.0, Baso % (Auto) 0.1, Neut # (Auto) 11.6 H, Lymph # (Auto) 1.1, Door # (Auto) 0.8, Eos # (Auto) 0.0, Baso # (Auto) 0.0, Immature Gran # (Auto) 0.3 PLAN: DISCHARGE HOME TODAY: JUNE 02, 2020 HOME WITH [facility] SN DIET: REGULAR TOLERATED ACTIVITY: GRADUALLY RESUME TOLERATED WITH ROLLATOR. FREQUENT REST PERIODS BUT DO GET UP AND WALK IN HOME FREQUENTLY . STAY HOME EXCEPT FOR MEDICAL APPOINTMENTS BLEEDING PRECAUTIONS DUE TO COUMADIN USE OXYGEN FOR ALL ACTIVITY 3 L/M AT REST MAY INCREASE TO 4 L/M FOR ACTIVITY [facility] TO [facility]: NURSING VISITS (ASSESSMENT, VITAL SIGNS, INCLUDING PULSE OXIMETRY [facility] TO CHECK PT/INR ( FOR COUMADIN/WARFARIN LEVEL) WEDNESDAY JUNE 03, [address] RASCON WITH THE RESULTS: CELL # [phone] ( PLEASE DO NOT SHARE # WITH OTHERS) WAS ON 3 MG DAILY BUT HAS BEEN ON HOLD THE LAST 2 DAYS. FOLLOW UP: AN APPOINTMENT IS SCHEDULED WITH DR. RASCON/JAZZMINE CHEW APRN/TERESA LYONS APRN ON TUESDAY, JUNE 09, 2020 @ [address] DR. OLIVAS, RESPIRATORY DISEASE FOLLOW UP ORDERED CODE STATUS: DO NOT RESUSCITATE MRS. STEINBERG REMAINS ALERT AND ORIENTED X 4. SHE HAS REMAINED PLEASANT AND TALKATIVE. SHE USES OXYGEN AT 3 L/M PER N/C AT REST AND 4 L/M WITH ACTIVITY. LUNGS HAVE BEEN COURSE AND DIMINISHED WITH YELLOW SPUTUM. EXERTIONAL DYSPNEA AND TAKES A FEW MINUTES TO RECOVER. SKIN WARM AND DRY AND INTACT EXCEPT SCATTERED BRUISING TO ARMS AND LEGS, WITH SOME JULIET DARKER BUT NOT OPEN OR IRRITATED. TRACE EDEMA TO LEGS NOW. FLUID AND NUTRITIONAL INTAKE HAS BEEN GOOD. SHE IS CONTINENT OF BOWEL AND BLADDER. LAST BM 06/01/2020 . SHE LIVES WITH HER , STILL PERFORMS SOME LIGHT HOUSEKEEPING TASK AT TIMES, BUT GETTING LESS ABLE. DAUGHTERS HAVE BEEN SICK AND NOT ABLE TO ASSIST. MRS STEINBERG INSISTS ON GOING HOME AND DOES NOT WANT GRAVITY MANAGER/ REHAB PLACEMENT. SHE CONTINUES TO REFUSE ANY HOMEMAKING SERVICES. SHE HAS BEEN USING A BSC AND HAS DEMONSTRATED THE ABILITY TO TAKE SELF TO THE BATHROOM AND WALK SHORT DISTANCES WITH A ROLLATOR WITHOUT STAFF ASSIST. SHE HAS AGREED TO CONTINUE, SHE HAD PRIOR TO LAST HOSPITALIZATIONS, A SN WITH [facility] WHO IS TO PERFORM A PT/INR ON 06/03/2020. MD JAZZMINE SMILEY APRN ALYCE HANNAN, APRN
--- NOTE | 2020-06-02 14:07 | DS ---
DATE OF SERVICE: 06/02/20 FINAL DIAGNOSIS: 1. ACUTE COPD EXACERBATION WITH PNEUMONITIS 2. SEVERE CHRONIC LUNG DISEASE END-STAGE 3. HYPERTENSION- CONTROLLED 4. DEHYDRATION- RESOLVED 5. CHRONIC ANEMIA 6. HISTORY OF PERSISTENT PNEUMONIA* 7. HISTORY OF PE/DVT ON COUMADIN* 8. HYPERKALEMIA* 9. GENERALIZED WEAKNESS* HX: 10. ATRIAL FIBRILLATION- COUMADIN THERAPY 11. RIGHT SIDED FAILURE 12. FLUID OVERLOAD 13. BILATERAL PNEUMONIA, PERSISTENT 14. HISTORY OF PSEUDOMONAS AERUGINOSA PER SPUTUM CULTURE WHICH I DO BELIEVE SHE IS COLONIZED 15. END STAGE SEVERE COPD, OXYGEN AND STEROID DEPENDENT 16. CHRONIC RESPIRATORY FAILURE 17. EMPHYSEMA, SEVERE PER CT* 18. PULMONARY FIBROSIS 19. PULMONARY NODULE, FOLLOWED BY DR. OLIVAS 20. DVT/PE (ON COUMADIN) 21. HYPERTENSION 22. CHRONIC ANEMIA 23. LEG EDEMA 24. ANXIETY 25. GERD 26. DEGENERATIVE DISC DISEASE 27. SMOKER/TOBACCO USE- OCCASIONAL NOW 28. ARTHRITIS LT SHOULDER 29. GENERALIZED ARTHRITIS 30. GENERALIZED OSTEOPOROSIS 31. RECURRENT GOUT 32. VAGINAL CANDIDIASIS 33. COMPRESSION FRACTURE, T9 (STABLE) 34. OSTEOPENIA SURGICAL HISTORY: 35. HYSTERECTOMY LAST VITALS Temp Pulse Resp BP Pulse Ox 97.9 F 92 H 20 122/78 96 06/02/20 06:00 06/02/20 06:00 06/02/20 06:00 06/02/20 06:00 06/02/20 10:00 DISCHARGE INSTRUCTIONS: 1. DISCHARGE HOME TODAY: JUNE 02, 2020 HOME WITH [facility] SN. 2. BLEEDING PRECAUTIONS DUE TO COUMADIN. 3. USE OXYGEN FOR ALL ACTIVITY 3 L/M AT REST MAY INCREASE TO 4 L/M FOR ACTIVITY 4. [facility] TO RESUME: NURSING VISITS (ASSESSMENT, VITAL SIGNS, INCLUDING PULSE OXIMETRY) [facility] TO CHECK PT/INR (FOR COUMADIN/WARFARIN LEVEL) WEDNESDAY JUNE 03, [address] RASCON WITH THE RESULTS: CELL # [phone] (PLEASE DO NOT SHARE # WITH OTHERS) WAS ON 3 MG DAILY BUT HAS BEEN ON HOLD THE LAST 2 DAYS. 5. MD FOLLOW UP: AN APPOINTMENT IS SCHEDULED WITH DR. RASCON/JAZZMINE CHEW APRN/TERESA LYONS APRN ON TUESDAY, JUNE 09, 2020 @ [address] DR[address] OLIVAS, RESPIRATORY DISEASE FOLLOW UP ORDERED. MEDICATIONS AT DISCHARGE: Acetaminophen (Acetaminophen 325 Mg Tablet) 650 mg PO Q4HR PRN PRN Reason: Fever >101/pain Alprazolam (Alprazolam 0.25 Mg Tablet) 0.25 mg PO TID [facility] Last Admin: 06/02/20 08:33 Dose: 0.25 mg Documented by: Brimonidine Tartrate (Brimonidine Tartrate 0.2% 5 Ml Btl) 1 drop EACHEYE BID [facility] Last Admin: 06/02/20 08:34 Dose: 1 drop Documented by: Carvedilol (Carvedilol 3.125 Mg Tablet) 3.125 mg PO BIDWM [facility] Last Admin: 06/02/20 08:34 Dose: 3.125 mg Documented by: Ferrous Sulfate (Ferrous Sulfate 324 Mg Tablet.) 324 mg PO DAILY [facility] Last Admin: 06/02/20 08:34 Dose: 324 mg Documented by: Furosemide (Furosemide 20 Mg Tablet) 20 mg PO QDAC [facility] Last Admin: 06/02/20 05:56 Dose: 20 mg Documented by: Guaifenesin (Guaifenesin 600 Mg Tablet.Er) 600 mg PO Q12HR [facility] Last Admin: 06/02/20 08:33 Dose: 600 mg Documented by: Loratadine (Loratadine 10 Mg Tablet) 10 mg PO DAILY [facility] Last Admin: 06/02/20 08:33 Dose: 10 mg Documented by: Meclizine HCl (Meclizine Hcl 25 Mg Tablet) 25 mg PO TID PRN PRN Reason: Dizziness Last Admin: 06/02/20 10:07 Dose: 25 mg Documented by: Pantoprazole Sodium (Pantoprazole Sodium 40 Mg Tablet.) 40 mg PO BIDAC [facility] Last Admin: 06/02/20 05:56 Dose: 40 mg Documented by: Promethazine HCl/Codeine (Promethazine/Codeine Syrup 6.25/10 Mg/5 Ml Disp.Syringe) 10 ml PO Q6H PRN PRN Reason: COUGH/NAUSEA Last Admin: 06/01/20 20:56 Dose: 10 ml Documented by: Saccharomyces Boulardii (Saccharomyces Boulardii 250 Mg Capsule) 250 mg PO BID [facility] Last Admin: 06/02/20 08:33 Dose: 250 mg Documented by: Tramadol HCl (Tramadol Hcl 50 Mg Tablet) 50 mg PO BID [facility] Last Admin: 06/02/20 08:33 Dose: 50 mg Documented by: DUONEB 3 ML TID, MAY INCREASE TO QID IF NEEDED BUDESONIDE 0.5 MG NEBULIZER BID AUGMENTIN 875/125 MG PO WITH FOOD BID X 7 DAYS, START 06/03/2020 PREDNISONE 10 MG PO DAILY WITH FOOD, START 06/03/2020 NEW PRESCRIPTIONS: AUGMENTIN 875/125 MG PO WITH FOOD BID X 7 DAYS, START 06/03/2020 PREDNISONE 10 MG PO DAILY WITH FOOD, START 06/03/2020 DISCONTINUED MEDICATIONS: HOLD COUMADIN ( HOME HEALTH TO CHECK PT/INR 06/03/2020) DISCONTINUE POTASSIUM DIET INSTRUCTIONS: REGULAR TOLERATED ACTIVITY: GRADUALLY RESUME TOLERATED WITH ROLLATOR. FREQUENT REST PERIODS BUT DO GET UP AND WALK IN HOME FREQUENTLY. STAY HOME EXCEPT FOR MEDICAL APPOINTMENTS. SMOKING: SMOKING CESSATION DISEASE SPECIFIC EDUCATION: END STAGE COPD ENERGY CONSERVATION BLEEDING PRECAUTIONS COVID 19 HOSPITAL COURSE: 79-year-old white female was hospitalized with acute exacerbation of COPD with pneumonitis. The patient has history of Pseudomonas infection, appears to be chronic. In any case, the patient was initially given Gentamicin. After 48 hours of loading dose she was switched to Tobramycin and was given 48 hourly. Her condition has steadily improved in the past 1 to 8 days. She is able to eat regularly, walk, able to transfer herself, go to the bathroom. She is oriented to time, place and person. She has severe chronic lung disease which is end- stage with chronic Pseudomonas infection. She is going to be discharged on Augmentin 750 mg twice a day to be taken for 7 days with meals along with low dose Prednisone 10 mg daily. The patient's problem is that her daughters that use to take care of the patient at home were sick and hospitalized. They have been discharged home and can help her some. The patient lives with the . The patient's prognosis is not good considering the patient's severity of chronic lung disease which is end-stage. She has talked about hospice. At this time the patient elected to go home without it. Condition at time of discharge stable. Prognosis is poor. TIME SPENT: More than 60 minutes. MTDD
--- NOTE | 2020-06-02 14:10 | PN ---
BILLING 05/27/20 LEVEL 5 05/28/20 INTERMEDIATE 05/29/20 INTERMEDIATE 05/30/20 INTERMEDIATE 05/31/20 INTERMEDIATE 06/01/20 INTERMEDIATE 06/02/20 D IN DISCHARGE MTDD
== END 2020-06-02 13:20 | disposition home or self-care (01) | DRG 193 ==
LOC: MEDSURG A 07:08 → ED 07:08 → MEDSURG A 09:55
PROVIDERS: ADMIT Internal Medicine; ATTEND Internal Medicine
DX: R07.9 Chest pain, unspecified; B96.5 Pseudomonas (aeruginosa) (mallei) (pseudomallei) as the cause of diseases classified elsewhere; R53.1 Weakness; M79.10 Myalgia, unspecified site; E46 Unspecified protein-calorie malnutrition; R06.02 Shortness of breath; E87.5 Hyperkalemia; J96.90 Respiratory failure, unspecified, unspecified whether with hypoxia or hypercapnia; I10 Essential (primary) hypertension; E86.0 Dehydration; D64.9 Anemia, unspecified; R05 Cough; N18.9 Chronic kidney disease, unspecified; J18.9 Pneumonia, unspecified organism